=== PATIENT | male | born 1960 | race Caucasian/White ===

== ENCOUNTER → 2018-02-28 17:19 | Outpatient (CLI) | payer OTHER, SELFPAY ==
[2018-02-28 17:37] LABS: Absolute Lymphocyte Count 1.81 X10^3/ul (0.83-4.51); Absolute Neutrophil Count 3.6 X10^3/uL (2.0-7.7); Basophil# 0.02 X10^3/uL; Basophil% 0.3 % (0-1); Eosinophil# 0.23 X10^3/uL; Eosinophils% 3.6 % (0-5); Hematocrit 45.9 % (40-54); Hemoglobin 16.4 g/dl (13.0-16.5); Lymphocyte # 1.81 X10^3/ul (4.0); Lymphocyte % 28.3 % (19-41); Mean Corp Hgb Conc 35.7 g/gl (32-36); Mean Corpuscular Hgb 31.8 pg (27.0-32.0); Mean Corpuscular Volume 89.1 fL (80-94); Mean Platelet Vol. 8.9 fl (6.2-12.0); Monocyte# 0.73 X10^3/uL; Monocyte% 11.4 % (0-10); Neutrophil # 3.59 X10^3/uL (2.7-7.7); Neutrophil % 56.2 % (47-70); Platelet Count 231 K/mm3 (150-450); RBC Distribution Width CV 13.1 % (11.6-14.6); RBC Distribution Width SD 42.4 fl (35.1-43.9); Red Blood Count 5.15 M/mm3 (4.6-6.2); White Blood Count 6.4 K/mm3 (4.4-11.0)
[2018-02-28 17:40] LABS: POSITIVE COUNT NO; POSITIVE DIFFERENTIAL NO; POSITIVE MORPHOLOGY NO
[2018-02-28 18:19] LABS: ALB/GLOB Ratio 0.9 RATIO (0.9-2.4); AST(SGOT) 18 U/L (15-37); Alanine Aminotransfer ALT/SGPT 29 U/L (16-61); Albumin, Serum 3.7 g/dL (3.2-5.0); Alkaline Phosphatase 68 U/L (45-117); Anion Gap 8 (5-15); BUN 19 mg/dL (7-18); BUN/Creat Ratio 21.6 RATIO (10-20); Calcium,Total 8.8 mg/dL (8.5-10.1); Chloride 106 mmol/L (98-107); Creatinine, Serum 0.88 mg/dL (0.70-1.30); EST Glomerular Filtration Rate 95 mL/min (>60); Est Glom Filt Rate - Afr Amer 115 mL/min (>60); Globulin 3.9 g/dL (2.2-4.2); Glucose 86 mg/dL (74-106); Potassium 4.5 mmol/L (3.5-5.1); Protein, Total 7.6 g/dL (6.4-8.2); Sodium Level 139 mmol/L (136-145); Thyroid Stim Hormone (TSH) 2.12 uIU/mL (0.358-3.74)
== END ==
PROVIDERS: Family Provider Family Medicine Geriatric Medicine; PCP Family Medicine Geriatric Medicine; Visit Provider Family Medicine Geriatric Medicine
DX: I10 Essential (primary) hypertension (principal)
CPT/HCPCS: 36415; 80053; 84443; 85025

== ENCOUNTER → 2018-09-01 12:01 | Outpatient (CLI) | payer OTHER, SELFPAY ==
[2017-08-03 16:46] VITALS: BMI 46.5
[2018-09-01 16:32] LABS: M R Staph aureus DNA By PCR Negative (Negative); Probe Check PASS; Specimen Processing Control PASS; Staph aureus DNA By PCR NEGATIVE (Negative)
== END ==
PROVIDERS: Family Provider Family Medicine Geriatric Medicine; PCP Family Medicine Geriatric Medicine; Visit Provider Family Medicine Geriatric Medicine
DX: L03.90 Cellulitis, unspecified (principal)
CPT/HCPCS: 87070; 87075; 87205; 87640

== ENCOUNTER → 2018-09-20 16:23 | Outpatient (CLI) | payer OTHER, SELFPAY ==
[2017-08-03 16:46] VITALS: BMI 46.5
[2018-09-20 17:52] LABS: Absolute Neutrophil Count 3.6 X10^3/uL (2.0-7.7); Basophil# 0.01 X10^3/uL; Basophil% 0.2 % (0-1); Eosinophil# 0.17 X10^3/uL; Eosinophils% 2.6 % (0-5); Hematocrit 47.2 % (40-54); Hemoglobin 16.2 g/dl (13.0-16.5); Lymphocyte % 32.5 % (19-41); Mean Corp Hgb Conc 34.3 g/gl (32-36); Mean Corpuscular Hgb 31.4 pg (27.0-32.0); Mean Corpuscular Volume 91.5 fL (80-94); Mean Platelet Vol. 9.1 fl (6.2-12.0); Monocyte# 0.59 X10^3/uL; Monocyte% 9.1 % (0-10); Neutrophil # 3.58 X10^3/uL (2.7-7.7); Neutrophil % 55.3 % (47-70); Platelet Count 240 K/mm3 (150-450); RBC Distribution Width CV 12.9 % (11.6-14.6); RBC Distribution Width SD 42.9 fl (35.1-43.9); Red Blood Count 5.16 M/mm3 (4.6-6.2); White Blood Count 6.5 K/mm3 (4.4-11.0)
[2018-09-20 18:14] LABS: AST(SGOT) 25 U/L (15-37); Alanine Aminotransfer ALT/SGPT 33 U/L (16-61); Albumin, Serum 3.8 g/dL (3.2-5.0); Alkaline Phosphatase 67 U/L (45-117); Anion Gap 12 (5-15); BUN 20 mg/dL (7-18); BUN/Creat Ratio 21.3 RATIO (10-20); Calcium,Total 8.9 mg/dL (8.5-10.1); Chloride 108 mmol/L (98-107); Creatinine, Serum 0.94 mg/dL (0.70-1.30); EST Glomerular Filtration Rate 88 mL/min (>60); Est Glom Filt Rate - Afr Amer 106 mL/min (>60); Globulin 3.9 g/dL (2.2-4.2); Glucose 93 mg/dL (74-106); PSA,Total - Annual Screen 0.95 ng/mL (0.00-4.00); Potassium 4.2 mmol/L (3.5-5.1); Protein, Total 7.7 g/dL (6.4-8.2); Sodium Level 139 mmol/L (136-145); Thyroid Stim Hormone (TSH) 1.69 uIU/mL (0.358-3.74)
[2018-09-20 18:33] LABS: POSITIVE COUNT NO; POSITIVE DIFFERENTIAL NO; POSITIVE MORPHOLOGY NO
== END ==
PROVIDERS: Family Provider Family Medicine Geriatric Medicine; PCP Family Medicine Geriatric Medicine; Visit Provider Family Medicine Geriatric Medicine
DX: I10 Essential (primary) hypertension (principal); Z12.5 Encounter for screening for malignant neoplasm of prostate
CPT/HCPCS: 36415; 80053; 84153; 84443; 85025; G0103

== ENCOUNTER → 2018-11-07 10:14 | Outpatient (CLI) | payer OTHER, SELFPAY ==
--- NOTE | 2018-11-07 10:24 | VDLE_ITS ---
Reason For Study: edema RIGHT LEFT GSV is normal. GSV is normal. CFV is compressible, spontaneous, phasic, CFV is compressible, spontaneous, phasic, competent and demonstrates normal competent, and demonstrates normal augmentation. augmentation. FV is compressible, spontaneous, phasic, FV is compressible, spontaneous, phasic, competent and demonstrates normal competent and demonstrates normal augmentation. augmentation. POP V is compressible, spontaneous, phasic, POP V is compressible, spontaneous, phasic, competent and demonstrates normal competent and demonstrates normal augmentation. augmentation. T/P Trunk is compressible. T/P Trunk is compressible. PTV is compressible. PTV is compressible. RT PerV is compressible. LT PerV is compressible. Procedure Exam performed in department. The exam was diagnostic. A preliminary report was called and/or faxed to Dr. Blake. Interpretation Summary Deep veins of the lower extremities are bilaterally patent and compressible segmentally. There is no evidence of deep vein thrombosis on either side. Valvular competence appears intact within the proximal deep venous systems bilaterally. The greater saphenous veins appear bilaterally patent and compressible segmentally. Ordering Physician: Alfonso Blake Performed By: Aaron Youssef RVT
--- NOTE | 2018-11-07 10:53 | RAD_ITS ---
STUDY: X-RAY - LEFT HIP AP pelvis REASON FOR EXAM: Male, 58 years old. Pain, no known injury TECHNIQUE: 2 views of the hip. Single AP view of the pelvis COMPARISON: None. FINDINGS: The bony pelvis is intact with no evidence of fracture or lytic or blastic osseous process. There is no evidence of fracture, dislocation, or significant degenerative disease of the left or right hips. Soft tissues are unremarkable. RAD/HIP, UNI W/ Pelvis 2-3 Views IMPRESSION: The bony pelvis and left and right hips appear within normal limits. Electronically Signed: Kalin Silver MD at 20:48 EST , Service support ,
== END ==
PROVIDERS: Family Provider Family Medicine Geriatric Medicine; PCP Family Medicine Geriatric Medicine; Referring Provider Family Medicine Geriatric Medicine; Visit Provider Family Medicine Geriatric Medicine
DX: R60.0 Localized edema (principal); M25.559 Pain in unspecified hip
CPT/HCPCS: 73502; 93970

== ENCOUNTER → 2019-03-29 | Outpatient (CLI) | payer OTHER, SELFPAY ==
[2019-03-29 17:15] LABS: Absolute Neutrophil Count 3.5 X10^3/uL (2.0-7.7); Basophil# 0.02 X10^3/uL; Basophil% 0.3 % (0-1); Eosinophil# 0.23 X10^3/uL; Eosinophils% 3.8 % (0-5); Hematocrit 46.9 % (40-54); Hemoglobin 16.1 g/dL (13.0-16.5); Lymphocyte % 28.1 % (19-41); Mean Corp Hgb Conc 34.3 g/dL (32-36); Mean Corpuscular Hgb 31.4 pg (27.0-32.0); Mean Corpuscular Volume 91.4 fL (80-94); Mean Platelet Vol. 8.8 fl (6.2-12.0); Monocyte# 0.59 X10^3/uL; Monocyte% 9.7 % (0-10); NRBC Flagged by Analyzer 0 % (0-5); Neutrophil % 57.8 % (47-70); Platelet Count 246 K/mm3 (150-450); RBC Distribution Width CV 12.6 % (11.6-14.6); RBC Distribution Width SD 42.2 fl (35.1-43.9); Red Blood Count 5.13 M/mm3 (4.6-6.2); White Blood Count 6.1 K/mm3 (4.4-11.0)
[2019-03-29 17:47] LABS: AST(SGOT) 15 U/L (15-37); Alanine Aminotransfer ALT/SGPT 32 U/L (16-61); Albumin, Serum 3.7 g/dL (3.2-5.0); Alkaline Phosphatase 68 U/L (45-117); Anion Gap 8 (5-15); BUN 21 mg/dL (7-18); BUN/Creat Ratio 18.4 RATIO (10-20); Calcium,Total 8.9 mg/dL (8.5-10.1); Chloride 109 mmol/L (98-107); Creatinine, Serum 1.14 mg/dL (0.70-1.30); EST Glomerular Filtration Rate 70 mL/min (>60); Est Glom Filt Rate - Afr Amer 85 mL/min (>60); Globulin 3.7 g/dL (2.2-4.2); Glucose 93 mg/dL (74-106); Potassium 4.1 mmol/L (3.5-5.1); Protein, Total 7.4 g/dL (6.4-8.2); Sodium Level 141 mmol/L (136-145); Thyroid Stim Hormone (TSH) 1.42 uIU/mL (0.358-3.74)
== END | disposition home or self-care (01) ==
LOC: POLAB3 16:05
PROVIDERS: Family Provider Family Medicine Geriatric Medicine; PCP Family Medicine Geriatric Medicine; Visit Provider Family Medicine Geriatric Medicine
DX: I10 Essential (primary) hypertension (principal)
CPT/HCPCS: 36415; 80053; 84443; 85025

== ENCOUNTER → 2019-09-25 15:47 | Outpatient (CLI) | payer OTHER, SELFPAY ==
[2019-09-25 17:53] LABS: Absolute Lymphocyte Count 1.34 X10^3/uL (0.83-4.51); Absolute Neutrophil Count 3.5 X10^3/uL (2.0-7.7); Basophil# 0.02 X10^3/uL; Basophil% 0.3 % (0-1); Eosinophil# 0.34 X10^3/uL; Eosinophils% 5.9 % (0-5); Hematocrit 48.1 % (40-54); Hemoglobin 16.3 g/dL (13.0-16.5); Lymphocyte # 1.34 X10^3/ul (4.0); Lymphocyte % 23.3 % (19-41); Mean Corp Hgb Conc 33.9 g/dL (32-36); Mean Corpuscular Hgb 30.4 pg (27.0-32.0); Mean Corpuscular Volume 89.7 fL (80-94); Monocyte# 0.57 X10^3/uL; Monocyte% 9.9 % (0-10); NRBC Flagged by Analyzer 0 % (0-5); Neutrophil # 3.48 X10^3/uL (2.7-7.7); Neutrophil % 60.4 % (47-70); Platelet Count 251 K/mm3 (150-450); RBC Distribution Width CV 12.9 % (11.6-14.6); RBC Distribution Width SD 41.8 fl (35.1-43.9); Red Blood Count 5.36 M/mm3 (4.6-6.2); White Blood Count 5.8 K/mm3 (4.4-11.0)
[2019-09-25 18:53] LABS: AST(SGOT) 17 U/L (15-37); Alanine Aminotransfer ALT/SGPT 35 U/L (16-61); Albumin, Serum 3.8 g/dL (3.2-5.0); Alkaline Phosphatase 63 U/L (45-117); Anion Gap 6 (5-15); BUN 19 mg/dL (7-18); BUN/Creat Ratio 19.3 RATIO (10-20); Calcium,Total 9.6 mg/dL (8.5-10.1); Chloride 108 mmol/L (98-107); Creatinine, Serum 0.99 mg/dL (0.70-1.30); EST Glomerular Filtration Rate 83 mL/min (>60); Est Glom Filt Rate - Afr Amer 100 mL/min (>60); Globulin 3.7 g/dL (2.2-4.2); Glucose 96 mg/dL (74-106); Potassium 4.2 mmol/L (3.5-5.1); Protein, Total 7.5 g/dL (6.4-8.2); Sodium Level 138 mmol/L (136-145)
== END ==
PROVIDERS: Family Provider Family Medicine; PCP Family Medicine; Visit Provider Family Medicine
DX: D68.61 Antiphospholipid syndrome (principal); Z79.01 Long term (current) use of anticoagulants; G47.33 Obstructive sleep apnea (adult) (pediatric)
CPT/HCPCS: 36415; 80053; 85025

== ENCOUNTER → 2019-09-28 14:13 | Outpatient (CLI) | payer OTHER, SELFPAY ==
--- NOTE | 2019-09-28 14:19 | US_ITS ---
STUDY: SCROTUM ULTRASOUND REASON FOR EXAM: Male, 59 years old. HYDROCELE TECHNIQUE: Ultrasound evaluation of the scrotum was performed with color Doppler and static rodas-scale imaging. COMPARISON: None. FINDINGS: RIGHT TESTICLE INTRATESTICULAR: There is a normal size of the right testicle. The right testicle measures 3.6 x 2.8 x 1.7 cm. There is a homogenous echotexture. There is normal arterial and normal venous vascularity. There is no demonstrated right testicular mass or cyst. EXTRATESTICULAR: The epididymis is normal in size. The epididymis head measures 0.9 x 1.1 x 0.6 cm. There is normal vascularity of the epididymis. There is no demonstrated epididymal cystic structure. There is no demonstrated hydrocele. There is no demonstrated varicocele. There is no demonstrated extratesticular mass or cyst. LEFT TESTICLE INTRATESTICULAR: There is a normal size of the left testicle. The left testicle measures 3.6 x 2.6 x 1.8 cm. There is a homogenous echotexture. There is normal arterial and normal venous vascularity. There is no demonstrated left testicular mass or cyst. EXTRATESTICULAR: The epididymis is enlarged. In the body and tail segment The epididymis head measures 1.0 x 1.4 x 0.9 cm. There is normal vascularity of the epididymis. There is no demonstrated epididymal cystic structure. There is a small hydrocele. There is no demonstrated varicocele. There is no demonstrated extratesticular mass or cyst. US/Testicular with Arterial Flow IMPRESSION: 1. Normal bilateral testicles. 2. Trace left hydrocele. 3. Mildly thickened left epididymal body and tail but without hyperemia. May be sequela of chronic epididymitis. Electronically Signed: Ld Tapia MD (Brooks) at 14:17 EST , Service support ,
== END ==
PROVIDERS: Family Provider Family Medicine; PCP Family Medicine; Referring Provider Family Medicine; Visit Provider Family Medicine
DX: N43.3 Hydrocele, unspecified (principal)
CPT/HCPCS: 76870; 93976

== ENCOUNTER 2021-04-21 12:29 | Emergency (ER) | payer OTHER, SELFPAY ==
[2021-04-21 12:30] VITALS: BP 138/82; PULSE 88; RESP 16; TEMP 36.7; O2SAT 98; BMI 50.5
--- NOTE | 2021-04-21 12:50 | VDLE_ITS ---
Reason For Study: swelling Procedure LEFT This is a venous duplex using B-mode, color GSV is normal. flow and spectral Doppler. CFV is compressible, spontaneous, phasic, Exam performed portable in ED. competent, and demonstrates normal The exam was abbreviated due to the COVID 19 augmentation. protocol. FV is compressible, spontaneous, phasic, The exam was diagnostic. competent and demonstrates normal A preliminary report was called and/or faxed augmentation. to Dr. Mackay. POP V is compressible, spontaneous, phasic, competent and demonstrates normal augmentation. T/P Trunk is compressible. PTV is compressible. LT PerV is compressible. VL/Venous Duplex US, Unilateral Interpretation Summary There is no evidence of left lower extremity deep vein thrombosis. Left great s aphenous vein appears patent and compressible segmentally. Abbreviated COVID-19 protocol utilized Ordering Physician: Humble Mackay Performed By: Aaron Youssef RVT
--- NOTE | 2021-04-21 12:52 | EDS_ITS ---
HPI History of Present Illness Chief Complaint: Fever Narrative Narrative: 60-year-old male presenting with a fever of 102 last evening. His states that he came home early and slept most of the afternoon and evening. He woke up that 3 AM and felt febrile however his temperature was 99.8. Patient took Tylenol at that time. He has no return of fever. Patient denies cough or shortness of breath but does admit to feeling chills and body aches. No loss of taste or smell. No sick contacts. 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 Patient does admit to some redness on the left lower calf. 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 Patient states he has a history of DVT and is not currently anticoagulated. Patient has not been vaccinated and states I do not see the point. He states that they that he never had to be vaccinated in the past. He has not had a history of COVID-19. PFSH PFSH Home Medications magnesium oxide 400 mg PO DAILY 12/22/16 [History Last Taken Unknown] omega 8-[id number]-[id number]-fish oil [Fish Oil] 1,200 mg PO DAILY 12/22/16 [History Last Taken Unknown] apixaban [Eliquis] 5 mg PO BID 08/03/17 [History Last Taken Unknown] cephalexin 500 mg PO Q6 #40 capsule 04/21/21 [Rx Last Taken Unknown] Allergy/AdvReac Type Severity Reaction Status Date / Time No Known Allergies Allergy Verified 08/03/17 16:50 Social History Smoking Status: Never smoker ROS ROS ED Constitutional Constitutional ED: Reports chills and fever(s); Denies sweats Eyes Eyes: Denies blurry vision or diplopia ENT ENT ED: Denies rhinorrhea or sore throat Cardiovascular Cardiovascular: Denies chest pain, palpitations or racing heartbeat Respiratory/Chest Respiratory/Chest: Denies cough, dyspnea or sputum Gastrointestinal Gastrointestinal: Denies abdominal pain, nausea or vomiting Genitourinary Genitourinary ED: Denies dysuria or hematuria Musculoskeletal Musculoskeletal: Reports myalgias; Denies arthralgias, back pain or neck pain Integumentary Reports rash and other Details: Redness and swelling of left calf. Neurologic Neurologic: Denies headache(s) or paresthesias Psychiatric Psychiatric: Denies anxiety or depression EXAM Physical Exam Const Vital Signs: 04/21/21 12:30 04/21/21 13:11 04/21/21 14:13 Temperature 98.0 F Temperature Source Temporal Pulse Rate 88 77 Respiratory Rate 16 18 Respiratory Pattern Normal Blood Pressure 138/82 H 157/73 H Blood Pressure Mean 100 101 Pulse Ox 98 96 Oxygen Delivery Method Room Air Room Air 04/21/21 14:41 Temperature Temperature Source Pulse Rate 72 Respiratory Rate 16 Respiratory Pattern Blood Pressure 155/86 H Blood Pressure Mean Pulse Ox 98 Oxygen Delivery Method Positive well nourished and well developed General Appearance ED: well developed; Negative for pallor HEENT trauma and tenderness Eyes PERRL and EOMs intact bilaterally Neck no lymphadenopathy and supple Resp normal respiratory effort Cardio regular rate and regular rhythm GI normal to inspection, nondistended, normoactive bowel sounds Extremity Extremity Narrative: Erythema and swelling to the left calf and left tibial region. No crepitance palpated. No cords palpated. General Extremety ED: Yes tenderness; Negative for edema General Extremity: Negative for edema Psych mental status grossly normal Mood & Affect: Negative for depressed Skin General Skin Exam: Negative for jaundice or pallor MDM MDM MDM Narrative Medical decision making narrative: Patient presenting with reported fever at home of 102 last night. He does not have any respiratory symptoms. He does complain that his left leg is erythematous and he has some pain in the left calf. Patient has a history of DVT and is no longer anticoagulated. I did check lab work which shows he has a blood cell count of 9.1, hemoglobin 15.4, hematocrit 46.9, platelets 175. Renal function and electrolytes are normal. LFTs are within normal limits with exception of total bilirubin which is elevated at 1.9. This was previously elevated at 1.10. Patient not having any right upper quadrant abdominal pain. Chest x-ray on my interpretation shows no acute cardiopulmonary process. Rapid Covid was negative. Patient's urinalysis is somewhat contaminated and I will send this for culture. DVT study of the left lower extremity shows no DVT. Given the erythema over the left calf I will treat him for cellulitis. This will also cover for UTI should his urine culture come back. Patient counseled on return precautions. Discharged home in stable condition. Impression: 1. Febrile illness 2. Cellulitis left lower extremity Lab Data Labs: Laboratory Results - last 24 hr 04/21/21 04/21/21 04/21/21 13:05 13:05 13:05 WBC 9.1 RBC 4.94 Hgb 15.4 Hct 46.9 MCV 94.9 H MCH 31.2 MCHC 32.8 RDW Std Deviation 46.8 H RDW Coeff of Reshma 13.4 Plt Count 175 MPV 8.7 Immature Gran % (Auto) 0.300 Neut % (Auto) 80.8 H Lymph % (Auto) 10.9 L [place] % (Auto) 7.0 Eos % (Auto) 0.8 Baso % (Auto) 0.2 Absolute Neuts (auto) 7.3 Absolute Lymphs (auto) 0.99 Nucleated RBC % 0 Sodium 138 Potassium 3.9 Chloride 103 Carbon Dioxide 29.0 Anion Gap 6 BUN 16 Creatinine 1.05 Estim Creat Clear Calc 77.25 Est GFR (MDRD) Af Amer 93 Est GFR (MDRD) Non-Af 76 BUN/Creatinine Ratio 15.2 Glucose 157 H Calcium 8.4 L Total Bilirubin 1.90 H AST 19 ALT 42 Alkaline Phosphatase 61 Total Protein 7.3 Albumin 3.2 Globulin 4.1 Albumin/Globulin Ratio 0.8 L Procalcitonin 1.41 H Urine Color Urine Clarity Urine pH Ur Specific [place] Urine Protein Urine Glucose (UA) Urine Ketones Urine Occult Blood Urine Nitrite Urine Bilirubin Urine Urobilinogen Ur Leukocyte Esterase Urine RBC Urine WBC Ur Squamous Epith Cells Urine Bacteria Urine Mucus 04/21/21 13:20 WBC RBC Hgb Hct MCV MCH MCHC RDW Std Deviation RDW Coeff of Reshma Plt Count MPV Immature Gran % (Auto) Neut % (Auto) Lymph % (Auto) [place] % (Auto) Eos % (Auto) Baso % (Auto) Absolute Neuts (auto) Absolute Lymphs (auto) Nucleated RBC % Sodium Potassium Chloride Carbon Dioxide Anion Gap BUN Creatinine Estim Creat Clear Calc Est GFR (MDRD) Af Amer Est GFR (MDRD) Non-Af BUN/Creatinine Ratio Glucose Calcium Total Bilirubin AST ALT Alkaline Phosphatase Total Protein Albumin Globulin Albumin/Globulin Ratio Procalcitonin Urine Color Yellow Urine Clarity Sl. Cloudy Urine pH 7.0 Ur Specific [place] 1.005 Urine Protein Negative Urine Glucose (UA) Normal Urine Ketones Negative Urine Occult Blood 250 H Urine Nitrite Negative Urine Bilirubin Negative Urine Urobilinogen 4 H Ur Leukocyte Esterase 25 H Urine RBC 10-25 SEEN Urine WBC 0-5 SEEN Ur Squamous Epith Cells 0-5 SEEN Urine Bacteria RARE Urine Mucus RARE Radiography Diagnostic Testing: Radiology Impression Venous Doppler Study 04/21/21 12:50 Interpretation Summary There is no evidence of left lower extremity deep vein thrombosis. Left great saphenous vein appears patent and compressible segmentally. Abbreviated COVID-19 protocol utilized Ordering Physician: Humble Mackay Performed By: Aaron Youssef, T Chest X-Ray 04/21/21 12:54 IMPRESSION: No suspicious acute cardiopulmonary pathology given the limited inspiratory effort. HRCT chest will help clarify if early interstitial pneumonitis is a clinical consideration. Electronically Signed: Merlin Hitchcock MD at 13:15 EDT , Service support , Discharge Plan Triage Chief Complaint: Fever ED Provider: Humble Mackay Dx/Rx/DC Orders Instructions: ED Cellulitis Prescriptions: New cephalexin 500 mg capsule 500 mg PO Q6 Qty: 40 RF: 0 No Action omega 0-usg-uss-fish oil [Fish Oil] 500 MG capsule,delayed release(DR/EC) 1,200 mg PO DAILY RF: 0 magnesium oxide 400 MG tablet 400 mg PO DAILY RF: 0 apixaban [Eliquis] 5 MG tablet 5 mg PO BID RF: 0 Primary Care Provider: Tri Choudhury Referrals: Tri Chouduhry MD [Primary Care Provider] - Disposition Disposition: Home, Self Care Discharge Date/Time: 04/21/21 14:41
--- NOTE | 2021-04-21 12:54 | RAD_ITS ---
EXAM: XR CHEST, 1 VIEW CLINICAL INDICATION: Cough. TECHNIQUE: Frontal view of the chest. This report was created using [employer] report generation technology. COMPARISON: 08/03/2017. FINDINGS: LUNGS AND PLEURAL SPACES: Pulmonary hypoinflation. No obvious infiltrates. No pneumothorax. No effusion. HEART: Unremarkable. Cardiac silhouette not enlarged. MEDIASTINUM: Central airways and mediastinal contour are unremarkable. BONES/JOINTS: Unremarkable. SOFT TISSUES: Unremarkable. RAD/Chest 1 View (Portable) IMPRESSION: No suspicious acute cardiopulmonary pathology given the limited inspiratory effort. HRCT chest will help clarify if early interstitial pneumonitis is a clinical consideration. Electronically Signed: Merlin Hitchcock MD at 13:15 EDT , Service support ,
[2021-04-21 13:16] LABS: Absolute Lymphocyte Count 0.99 X10^3/uL (0.83-4.51); Absolute Neutrophil Count 7.3 X10^3/uL (2.0-7.7); Basophil# 0.02 X10^3/uL; Basophil% 0.2 % (0-1); Eosinophil# 0.07 X10^3/uL; Eosinophils% 0.8 % (0-5); Hematocrit 46.9 % (40-54); Hemoglobin 15.4 g/dL (13.0-16.5); Lymphocyte # 0.99 X10^3/ul (0.83-4.51); Lymphocyte % 10.9 % (19-41); Mean Corp Hgb Conc 32.8 g/dL (32-36); Mean Corpuscular Hgb 31.2 pg (27.0-32.0); Mean Corpuscular Volume 94.9 fL (80-94); Mean Platelet Vol. 8.7 fl (6.2-12.0); Monocyte# 0.63 X10^3/uL; NRBC Flagged by Analyzer 0 % (0-5); Neutrophil # 7.32 X10^3/uL (2.7-7.7); Neutrophil % 80.8 % (47-70); Platelet Count 175 K/mm3 (150-450); RBC Distribution Width CV 13.4 % (11.6-14.6); RBC Distribution Width SD 46.8 fl (35.1-43.9); Red Blood Count 4.94 M/mm3 (4.6-6.2); White Blood Count 9.1 K/mm3 (4.4-11.0)
[2021-04-21 13:30] LABS: ALB/GLOB Ratio 0.8 RATIO (0.9-2.4); AST(SGOT) 19 U/L (15-37); Alanine Aminotransfer ALT/SGPT 42 U/L (16-61); Albumin, Serum 3.2 g/dL (3.2-5.0); Alkaline Phosphatase 61 U/L (45-117); Anion Gap 6 (5-15); BUN 16 mg/dL (7-18); BUN/Creat Ratio 15.2 RATIO (10-20); Calcium,Total 8.4 mg/dL (8.5-10.1); Chloride 103 mmol/L (98-107); Creatinine, Serum 1.05 mg/dL (0.70-1.30); EST Glomerular Filtration Rate 76 mL/min (>60); Est Glom Filt Rate - Afr Amer 93 mL/min (>60); Estimated Creatinine Clearance 77.25 ml/min; Globulin 4.1 g/dL (2.2-4.2); Glucose 157 mg/dL (74-106); Potassium 3.9 mmol/L (3.5-5.1); Protein, Total 7.3 g/dL (6.4-8.2); Sodium Level 138 mmol/L (136-145)
[2021-04-21 13:39] LABS: Color, Urine Yellow (Yellow); Glucose, Dipstick Normal (Normal); Ketone-Dipstick Negative (Negative); Leukocyte Esterase-Dipstick 25 /ul (Negative); Nitrite-Dipstick Negative (Negative); Occult Blood-Urine 250 /ul (Negative); Protein-Dipstick Negative (Negative); Specific Gravity, Urine 1.005 (1.002-1.030); Urine Bilirubin Dipstick Negative (Negative); Urine Clarity Sl. Cloudy (Clear); Urine Urobilinogen 4 mg/dl (Normal)
[2021-04-21 13:45] LABS: White Blood Cells 0-5 SEEN /hpf (0-5)
[2021-04-21 13:46] LABS: Bacteria RARE /hpf (None Seen); Mucous, Urine RARE /hpf (<or=2+); Red Blood Cells-Urine 10-25 SEEN /hpf (0-5); Squamous Epithelial Cells - UA 0-5 SEEN /hpf (0-5)
[2021-04-21 14:13] VITALS: BP 157/73; PULSE 77; RESP 18; O2SAT 96
[2021-04-21] MEDS: Cephalexin 250 MG Capsule 500 MG PO (14:36)
[2021-04-21 14:41] VITALS: BP 155/86; PULSE 72; RESP 16; O2SAT 98
[2021-04-21 15:25] LABS: Procalcitonin 1.41 ng/mL (0.00-0.09)
== END 2021-04-21 14:41 | disposition home or self-care (01) ==
PROVIDERS: Emergency Provider Student in an Organized Health Care Education/Training Program; PCP Family Medicine
DX: L03.116 Cellulitis of left lower limb (principal); R50.9 Fever, unspecified; Z86.718 Personal history of other venous thrombosis and embolism; Z79.01 Long term (current) use of anticoagulants
CPT/HCPCS: 71045; 80053; 81001; 84145; 85025; 87426; 93971; 99285

== ENCOUNTER → 2021-04-30 | Outpatient (CLI) | payer OTHER, SELFPAY ==
--- NOTE | 2021-04-30 15:30 | LES_PTH ---
PATIENT: WOOD CERDA LOC: [facility]#:[id number] AGE/SX: 60/M ROOM: RE04/30/[address]: Dr. Tri Choudhury MD : 1960 BED: DIS: 04/30/2021 SPEC #: [id number] RECD: 04/30/21 17:19 STATUS: ELI THERESA #: [id number] TREVOR: 04/30/21 15:[address]: Tri Choudhury DEPT: SURGICAL PATHOLOGY RECD BY: Zayra Olivares Tissues: Skin of face, NOS Procedures: Surgery Specimen Level IV HEADER OPERATION: Shave biopsy PRE-OP DIAGNOSIS: Growing lesion, suspect wart TISSUE SUBMITTED: Right cheek shave biopsy MICROSCOPIC DIAGNOSIS Right cheek, shave biopsy: Sebaceous hyperplasia. Suggestive of benign verrucous keratosis. Negative for malignancy. WAYNE:mnan 05/04/2021 MICROSCOPIC DESCRIPTION Slides are reviewed. GROSS DESCRIPTION Received is one container labeled with the patient's name and not further designated. The specimen consists of a shave biopsy of rodriguez-white skin measuring 0.4 x 0.4 x 0.1 cm. The specimen is inked and submitted entirely in one cassette. It will be bisected at the time of embedding. / SJ:rg 05/01/21 TC:5 CPT: 49260
== END | disposition home or self-care (01) ==
PROVIDERS: PCP Family Medicine; Visit Provider Family Medicine
DX: L98.9 Disorder of the skin and subcutaneous tissue, unspecified (principal)
CPT/HCPCS: 88305

== ENCOUNTER → 2022-02-16 | Outpatient (CLI) | payer OTHER, SELFPAY ==
[2022-02-16 10:56] LABS: Anion Gap 4 (5-15); Chloride 107 mmol/L (98-107); Potassium 4.3 mmol/L (3.5-5.1); Sodium Level 140 mmol/L (136-145)
== END | disposition home or self-care (01) ==
PROVIDERS: PCP Family Medicine; Referring Provider Internal Medicine Pulmonary Disease; Visit Provider Internal Medicine Pulmonary Disease
DX: G47.33 Obstructive sleep apnea (adult) (pediatric) (principal)
CPT/HCPCS: 36415; 80051

== ENCOUNTER 2022-02-17 07:31 | Inpatient (IN) | payer OTHER, SELFPAY ==
[2022-02-17 07:32] VITALS: BP 209/84; PULSE 56; RESP 18; TEMP 36.7; O2SAT 98; BMI 47.3
--- NOTE | 2022-02-17 07:54 | CT_ITS ---
STUDY: CT ABDOMEN AND PELVIS WITH CONTRAST REASON FOR EXAM: Male, 61 years old. RUQ pain since last night. RADIATION DOSAGE (If Supplied By Facility): CTDIvol = ( 20.55 ) mGy, DLP = ( 2457.55 ) mGycm TECHNIQUE: Transaxial images were obtained from the dome of the diaphragm to the symphysis pubis without oral contrast. IV 75mL [id number]-300 was administered. Sagittal and coronal images were reconstructed. Individualized dose optimization techniques were used for this CT. COMPARISON: None. FINDINGS: There is a 2.1 cm x 0.8 cm fat-containing nodule in the peripheral lateral aspect of the right lower lobe as seen on axial image #2. The visualized portions of the heart are within normal limits. There is decreased attenuation of the liver consistent with steatosis. There are multiple gallstones. Normal spleen. Normal pancreas. There is a small, circumscribed, smooth, low attenuation left adrenal mass, consistent with an adrenal adenoma. This measures 1.9 cm. Normal right adrenal gland. There is a 1.9 cm hypodense nodule in the inferior lateral aspect of the right kidney most likely representing a small cyst although correlation with ultrasound is recommended. Horseshoe kidney. There is a small hiatal hernia. Normal small intestine. There are multiple colonic diverticula consistent with diverticulosis. The appendix is visualized and appears normal. Normal abdominal aorta. Normal inferior vena cava. Normal retroperitoneum. Normal urinary bladder. There are prostatic calcifications. Normal abdominal wall. There are diffuse degenerative changes of the visualized lumbar spine. CT/Abdomen/Pelvis W IV Cont ONLY IMPRESSION: Multiple gallstones. Findings suggestive of a small cyst in the inferior lateral aspect of the right kidney although correlation with ultrasound is recommended. Horseshoe kidney. 2.1 cm x 0.8 cm fat-containing nodule in the peripheral lateral aspect of the right lower lobe. Electronically Signed: Sonny Padron MD at 9:17 EDT ,
--- NOTE | 2022-02-17 07:55 | ED.VIS.GI ---
HPI HPI - GI History of Present Illness Chief Complaint: Abd Pain Informant: patient Narrative Narrative: Patient is a 61-year-old male with history of of abdominal surgeries presenting with right upper quadrant abdominal pain. Patient states that started last night after dinner. States is in his right upper quadrant but sometimes goes across to the middle of his abdomen. Denies associated nausea, vomiting or diarrhea. States he tried taking Tylenol and walking around with no relief. He could not sleep last night because of the pain. Notes he has had pain like this in the past but usually resolves and that was a while ago. He feel slightly short of breath secondary to the pain. Pain is worse if he takes a deep breath. Patient notes that he had pork chops, macaroni salad and broccoli for dinner last night. Has a history of exploratory laparotomy due to a liver laceration as well as surgery in his left lower quadrant secondary to a form accident where he was impaled. No other complaints at this time. No fever or chills. No swelling of his legs or chest pain. No history of DVT or PE. Last bowel movement was yesterday and normal per patient PFSH PFS Medical History (Updated 02/17/22 @ 13:[address] Lizbeth Khalil, DO) Acute cholecystitis Morbid obesity ABDULKADIR (obstructive sleep apnea) Home Medications NK 02/17/22 [History Last Taken Unknown] Allergy/AdvReac Type Severity Reaction Status Date / Time No Known Allergies Allergy Verified 02/17/22 07:47 Social History Smoking Status: Never smoker ROS ROS ED Constitutional Constitutional ED: Denies chills or fever(s) ENT ENT ED: Denies sore throat Cardiovascular Cardiovascular: Denies chest pain or palpitations Respiratory/Chest Respiratory/Chest: Reports dyspnea; Denies cough Gastrointestinal Gastrointestinal: Reports abdominal pain; Denies constipation, diarrhea, melena, nausea or vomiting Genitourinary Genitourinary ED: Denies dysuria, hematuria or urinary frequency Musculoskeletal Musculoskeletal: Denies arthralgias or myalgias Integumentary Denies rash Neurologic Neurologic: Denies headache(s) or weakness Psychiatric Psychiatric: Denies depression EXAM Physical Exam Const Vital Signs: 02/17/22 07:32 02/17/22 10:08 02/17/22 13:14 Temperature 98.0 F 97.9 F Temperature Source Temporal Temporal Pulse Rate 56 L 87 60 Respiratory Rate 18 16 15 Blood Pressure 209/84 H 142/88 H 168/86 H Blood Pressure Mean 125 106 113 Pulse Ox 98 96 95 Oxygen Delivery Method Room Air Room Air Room Air Positive well nourished, well developed and obese General Appearance ED: well developed Nutritional Appearance: obese HEENT Reports moist mucous membranes normocephalic and atraumatic Eyes PERRL and EOMs intact bilaterally Neck supple Resp normal respiratory effort and clear to auscultation bilaterally Cardio regular rate, regular rhythm and no murmurs GI no masses Inspection: abdominal distention Auscultation: normoactive bowel sounds Palpation: tender RUQ and guarding; Negative for rigid Extremity full ROM General Extremety ED: Negative for edema or tenderness General Extremity: Negative for edema Neuro Sensorium / Orientation: alert, oriented to person, oriented to place and oriented to time Motor Exam: Negative for general weakness Psych mental status grossly normal Skin General Skin Exam: Negative for jaundice Lesions: no lesions Rashes: no rashes MDM MDM MDM Narrative Medical decision making narrative: Patient evaluated for right upper quadrant abdominal pain. Been occurring since last night. Patient is in significant discomfort upon arrival and requires 8 mg of IV morphine and then 1 mg of IV Dilaudid for pain control. He is also given IV fluids. Given the amount of abdominal pain he has as well as his abdominal surgical history I did obtain CT of his abdomen pelvis looking for signs of obstruction, perforation/free air. This is negative however he does have gallstones. Right upper quadrant ultrasound obtained shows dilated common bile duct as well as dilated gallbladder wall. Given his symptoms I am concerned about acute cholecystitis. He does not have a transaminitis and his bilirubin is normal status. Patient is discussed with surgeon on-call, Dr. Alex who will come down to evaluate the patient. Patient is agreeable with this plan of care. He remains hemodynamically stable in the emergency room. Patient is found to have microscopic hematuria on urinalysis however it is not consistent with infection he does not have a kidney stone. The etiology of this is unclear. EKG interpreted by emergency medicine physician obtained for preoperative clearance Normal sinus rhythm at a rate of [address] segments Lab Data Attestation: I reviewed the patient's lab results. Labs: Laboratory Results - last 24 hr 06/05/0302/17/22 02/17/22 07:42 07:42 08:03 WBC 8.2 RBC 5.22 Hgb 16.5 Hct 47.8 MCV 91.6 MCH 31.6 MCHC 34.5 RDW Std Deviation 42.8 RDW Coeff of Reshma 12.8 Plt Count 244 MPV 9.0 Immature Gran % (Auto) 0.400 Neut % (Auto) 75.4 H Lymph % (Auto) 15.3 L [place] % (Auto) 8.2 Eos % (Auto) 0.5 Baso % (Auto) 0.2 Absolute Neuts (auto) 6.2 Absolute Lymphs (auto) 1.25 Nucleated RBC % 0 Sodium 136 Potassium 4.4 Chloride 102 Carbon Dioxide 26.0 Anion Gap 8 BUN 21 H Creatinine 0.93 Estim Creat Clear Calc 86.13 Est GFR (MDRD) Af Amer 106 Est GFR (MDRD) Non-Af 88 BUN/Creatinine Ratio 22.6 H Glucose 137 H Lactic Acid 0.9 Calcium 9.4 Total Bilirubin 1.00 Direct Bilirubin 0.29 AST 17 ALT 35 Alkaline Phosphatase 68 Total Protein 7.6 Albumin 3.8 Globulin 3.8 Lipase 56 L Urine Color Urine Clarity Urine pH Ur Specific [place] Urine Protein Urine Glucose (UA) Urine Ketones Urine Occult Blood Urine Nitrite Urine Bilirubin Urine Urobilinogen Ur Leukocyte Esterase Urine RBC Urine WBC Ur Squamous Epith Cells Urine Bacteria Urine Mucus 02/17/22 09:18 WBC RBC Hgb Hct MCV MCH MCHC RDW Std Deviation RDW Coeff of Reshma Plt Count MPV Immature Gran % (Auto) Neut % (Auto) Lymph % (Auto) [place] % (Auto) Eos % (Auto) Baso % (Auto) Absolute Neuts (auto) Absolute Lymphs (auto) Nucleated RBC % Sodium Potassium Chloride Carbon Dioxide Anion Gap BUN Creatinine Estim Creat Clear Calc Est GFR (MDRD) Af Amer Est GFR (MDRD) Non-Af BUN/Creatinine Ratio Glucose Lactic Acid Calcium Total Bilirubin Direct Bilirubin AST ALT Alkaline Phosphatase Total Protein Albumin Globulin Lipase Urine Color Yellow Urine Clarity Clear Urine pH 6.0 Ur Specific [place] 1.020 Urine Protein Negative Urine Glucose (UA) Normal Urine Ketones Negative Urine Occult Blood 250 H Urine Nitrite Negative Urine Bilirubin Negative Urine Urobilinogen Normal Ur Leukocyte Esterase 25 H Urine RBC 25-50 SEEN Urine WBC 0-5 SEEN Ur Squamous Epith Cells 0 SEEN Urine Bacteria 0 SEEN Urine Mucus 0 SEEN Radiography Diagnostic Testing: Clinical Impression(s) from Imaging Studies Abdomen/Pelvis CT 02/17/22 07:54 IMPRESSION: Multiple gallstones. Findings suggestive of a small cyst in the inferior lateral aspect of the right kidney although correlation with ultrasound is recommended. Horseshoe kidney. 2.1 cm x 0.8 cm fat-containing nodule in the peripheral lateral aspect of the right lower lobe. Electronically Signed: Sonny Padron MD at 9:17 EDT , Gallbladder Ultrasound 02/17/22 09:20 IMPRESSION: Hepatomegaly and diffuse fatty infiltration of the liver. Multiple gallstones with thickening of the gallbladder wall. Horseshoe kidney. Small right renal cyst. Electronically Signed: Sonny Padron MD at 10:49 EDT , Discharge Plan Triage Chief Complaint: Abd Pain ED Provider: Lizbeth Khalil Dx/Rx/DC Orders Clinical Impression: Acute cholecystitis Primary Care Provider: Tri Choudhury Disposition Disposition: Acute Care [facility]
[2022-02-17] MEDS: 0.9% Normal Saline 1,000 ML 1000 ML IV (08:04)
[2022-02-17] MEDS: morphine 8 MG/ML Syringe IV (08:04)
[2022-02-17 08:15] LABS: Absolute Lymphocyte Count 1.25 X10^3/uL (0.83-4.51); Absolute Neutrophil Count 6.2 X10^3/uL (2.0-7.7); Basophil# 0.02 X10^3/uL; Basophil% 0.2 % (0-1); Eosinophil# 0.04 X10^3/uL; Eosinophils% 0.5 % (0-5); Hematocrit 47.8 % (40-54); Hemoglobin 16.5 g/dL (13.0-16.5); Lymphocyte # 1.25 X10^3/ul (0.83-4.51); Lymphocyte % 15.3 % (19-41); Mean Corp Hgb Conc 34.5 g/dL (32-36); Mean Corpuscular Hgb 31.6 pg (27.0-32.0); Mean Corpuscular Volume 91.6 fL (80-94); Monocyte# 0.67 X10^3/uL; Monocyte% 8.2 % (0-10); NRBC Flagged by Analyzer 0 % (0-5); Neutrophil # 6.17 X10^3/uL (2.7-7.7); Neutrophil % 75.4 % (47-70); Platelet Count 244 K/mm3 (150-450); RBC Distribution Width CV 12.8 % (11.6-14.6); RBC Distribution Width SD 42.8 fl (35.1-43.9); Red Blood Count 5.22 M/mm3 (4.6-6.2); White Blood Count 8.2 K/mm3 (4.4-11.0)
[2022-02-17 08:32] LABS: AST(SGOT) 17 U/L (15-37); Alanine Aminotransfer ALT/SGPT 35 U/L (16-61); Albumin, Serum 3.8 g/dL (3.2-5.0); Alkaline Phosphatase 68 U/L (45-117); Anion Gap 8 (5-15); BUN 21 mg/dL (7-18); BUN/Creat Ratio 22.6 RATIO (10-20); Bilirubin, Direct 0.29 mg/dL (0.00-0.30); Calcium,Total 9.4 mg/dL (8.5-10.1); Chloride 102 mmol/L (98-107); Creatinine, Serum 0.93 mg/dL (0.70-1.30); EST Glomerular Filtration Rate 88 mL/min (>60); Est Glom Filt Rate - Afr Amer 106 mL/min (>60); Estimated Creatinine Clearance 86.13 ml/min; Globulin 3.8 g/dL (2.2-4.2); Glucose 137 mg/dL (74-106); Lipase 56 U/L (73-393); Potassium 4.4 mmol/L (3.5-5.1); Protein, Total 7.6 g/dL (6.4-8.2); Sodium Level 136 mmol/L (136-145)
[2022-02-17 08:36] LABS: Lactic Acid 0.9 mmol/L (0.4-1.9)
--- NOTE | 2022-02-17 09:20 | US_ITS ---
STUDY: ABDOMINAL ULTRASOUND - RIGHT UPPER QUADRANT REASON FOR VISIT: Male, 61 years old Gall stones, RUQ pain TECHNIQUE: Ultrasound evaluation of the right upper quadrant was performed with real-time and static rodas-scale imaging. TECHNICAL QUALITY: Adequate. COMPARISON: Comparison is made with prior CT scan of the abdomen done earlier in the day. FINDINGS: Liver: The liver is enlarged and measures 23 cm. There is increased echogenicity consistent with fatty infiltration. The bile ducts are within normal limits. There is hepatic color flow. The direction of portal flow is hepatopetal. There is no demonstrated mass lesion. Gallbladder: Normal distended gallbladder. The gallbladder wall is thickened and measures 7.5 mm. There is a positive sonographic Hatch''s sign. There is no pericholecystic fluid. There are multiple echogenic structures within the gallbladder, consistent with multiple gallstones. Sludge is also seen within the gallbladder lumen. Common Bile Duct (C.B.D.): The common bile duct measures 4.0 mm. Pancreas: There is nonvisualization of the pancreas due to overlying bowel gas. Right Kidney: Normal size of the right kidney. The right kidney measures 14.2 cm x 5.8 cm x 7.1 cm. Normal renal cortex. The right cortex measures 1.5 cm. There is a 1.8 cm x 2.2 cm x 2 cm cyst. There is no right hydronephrosis. Horseshoe kidney. US/Gallbladder IMPRESSION: Hepatomegaly and diffuse fatty infiltration of the liver. Multiple gallstones with thickening of the gallbladder wall. Horseshoe kidney. Small right renal cyst. Electronically Signed: Sonny Padron MD at 10:49 EDT ,
[2022-02-17 09:24] LABS: Bacteria 0 SEEN /hpf (None Seen); Mucous, Urine 0 SEEN /hpf (<or=2+); Squamous Epithelial Cells - UA 0 SEEN /hpf (0-5)
[2022-02-17 09:36] LABS: Color, Urine Yellow (Yellow); Glucose, Dipstick Normal (Normal); Ketone-Dipstick Negative (Negative); Leukocyte Esterase-Dipstick 25 /ul (Negative); Nitrite-Dipstick Negative (Negative); Occult Blood-Urine 250 /ul (Negative); Protein-Dipstick Negative (Negative); Urine Bilirubin Dipstick Negative (Negative); Urine Clarity Clear (Clear); Urine Urobilinogen Normal (Normal)
[2022-02-17] MEDS: HYDROmorphone 1 MG/ML Syringe IV ×4 (09:38→23:07)
[2022-02-17 09:43] LABS: Red Blood Cells-Urine 25-50 SEEN /hpf (0-5); White Blood Cells 0-5 SEEN /hpf (0-5)
[2022-02-17 10:08] VITALS: BP 142/88; PULSE 87; RESP 16; O2SAT 96
--- NOTE | 2022-02-17 12:52 | HP.PCM.SX_ITS ---
HPI - General HPI Narrative Gustavo Burdick is a 61 y/o morbidly obese WM who presents with sudden onset of RUQ abdominal pain for less than a day. He states that he has had intermittent abdominal pain for ?years?, but the episodes did not last as long. He denies nausea/emesis. He denies fevers. He denies constipation and/or diarrhea. He was evaluated at [facility] ED and found to have cholelithiasis with thickened gallbladder wall findings c/w acute cholecystitis. He has continued abdominal pain, requiring use of IV narcotics for pain control [facility] Medical History (Updated 02/17/22 @ 12:[address] Renetta Alex MD) Acute cholecystitis Home Medications NK 02/17/22 [History Last Taken Unknown] Allergy/AdvReac Type Severity Reaction Status Date / Time No Known Allergies Allergy Verified 02/17/22 07:47 Social History Smoking Status: Never smoker ROS Constitutional Constitutional: Denies fever(s) or weight loss Cardiovascular Cardiovascular: Denies chest pain Respiratory/Chest Respiratory/Chest: Denies productive cough Gastrointestinal Gastrointestinal: Reports abdominal pain; Denies vomiting Genitourinary Genitourinary: Denies hematuria Musculoskeletal Musculoskeletal: Reports joint pain Integumentary Integumentary: Denies jaundice Neurologic Neurologic: Denies loss of vision Vital Signs Vital Signs Vital Signs: 02/17/22 07:32 02/17/22 10:08 Temperature 98.0 F Temperature Source Temporal Pulse Rate 56 L 87 Respiratory Rate 18 16 Blood Pressure 209/84 H 142/88 H Blood Pressure Mean 125 106 Pulse Ox 98 96 Oxygen Delivery Method Room Air Room Air Weight Weight: 149.685 kg Body Mass Index (BMI) 47.3 Physical Exam Const Constitutional Narrative: apparent abdominal discomfort Resp normal respiratory effort Cardio regular rate GI GI Narrative: abdomen is soft and obese, with tenderness in RUQ abdomen Extremity no clubbing, cyanosis or edema Results Lab / Micro Data Result Diagrams: 02/17/22 07:42 02/17/22 07:42 Labs: Laboratory Results - last 24 hr 02/17/22 07:42: WBC 8.2, RBC 5.22, Hgb 16.5, Hct 47.8, MCV 91.6, MCH 31.6, MCHC 34.5, RDW Std Deviation 42.8, RDW Coeff of Reshma 12.8, Plt Count 244, MPV 9.0, Immature Gran % (Auto) 0.400, Neut % (Auto) 75.4 H, Lymph % (Auto) 15.3 L, [place] % (Auto) 8.2, Eos % (Auto) 0.5, Baso % (Auto) 0.2, Absolute Neuts (auto) 6.2, Absolute Lymphs (auto) 1.25, Nucleated RBC % 0 02/17/22 07:42: Sodium 136, Potassium 4.4, Chloride 102, Carbon Dioxide 26.0, Anion Gap 8, BUN 21 H, Creatinine 0.93, Estim Creat Clear Calc 86.13, Est GFR (MDRD) Af Amer 106, Est GFR (MDRD) Non-Af 88, BUN/Creatinine Ratio 22.6 H, Glucose 137 H, Calcium 9.4, Total Bilirubin 1.00, Direct Bilirubin 0.29, AST 17, ALT 35, Alkaline Phosphatase 68, Total Protein 7.6, Albumin 3.8, Globulin 3.8, Lipase 56 L 02/17/22 08:03: Lactic Acid 0.9 02/17/22 09:18: Urine Color Yellow, Urine Clarity Clear, Urine pH 6.0, Ur Specific [place] 1.020, Urine Protein Negative, Urine Glucose (UA) Normal, Urine Ketones Negative, Urine Occult Blood 250 H, Urine Nitrite Negative, Urine Bilirubin Negative, Urine Urobilinogen Normal, Ur Leukocyte Esterase 25 H, Urine RBC 25-50 SEEN, Urine WBC 0-5 SEEN, Ur Squamous Epith Cells 0 SEEN, Urine Bacteria 0 SEEN, Urine Mucus 0 SEEN Radiology Impression Abdomen/Pelvis CT 02/17/22 07:54 IMPRESSION: Multiple gallstones. Findings suggestive of a small cyst in the inferior lateral aspect of the right kidney although correlation with ultrasound is recommended. Horseshoe kidney. 2.1 cm x 0.8 cm fat-containing nodule in the peripheral lateral aspect of the right lower lobe. Electronically Signed: Sonny Padron MD at 9:17 EDT , Gallbladder Ultrasound 02/17/22 09:20 IMPRESSION: Hepatomegaly and diffuse fatty infiltration of the liver. Multiple gallstones with thickening of the gallbladder wall. Horseshoe kidney. Small right renal cyst. Electronically Signed: Sonny Padron MD at 10:49 EDT , Assessment & Plan Assessment/Plan (1) Acute cholecystitis: PLAN: Patient with clinical and radiological findings c/w acute cholecystitis due to cholelithiasis. Will admit to hospital. Patient with question of cardiac disease, will consult Internal Medicine. Will keep on clear liquid diet, IV hydration, IV pain medications, IV antibiotics. Will tentatively plan for surgery - laparoscopic cholecystectomy tomorrow afternoon. I have discussed the above with the patient and his . I have explained the procedure to the patient. I have counseled the patient as to the risks of the procedure, including but not limited to: infection, bleeding, injury to any blood vessels/nerves, scar tissue, injury to any intraabdominal organs, injury to kidney/ureters, injury to bowel/bladder, injury to the common bile duct/biliary tree, bile leakage, intraabdominal abscess/bleeding, hernias at i ncisional sites, wound infections, possible open procedure, complications of anesthesia, postoperative pneumonia/cardiac problems/blood clots etc. the patient understands. He wishes to proceed. I have answered all questions to the patient?s satisfaction and the patient has no further questions.
--- NOTE | 2022-02-17 12:53 | EKG12_ITS ---
Test Reason : ADMISSION Blood Pressure : / mmHG Vent. Rate : 084 BPM Atrial Rate : 084 BPM P-R Int : 146 ms QRS Dur : 092 ms QT Int : 352 ms P-R-T Axes : 027 003 048 degrees QTc Int : 415 ms Normal sinus rhythm Inferior infarct , age undetermined Abnormal ECG Confirmed by JUD ARNDT, SHERRI ([id number]), mapping editor SPENCER MANUEL ([id number]) on 02/22/2022 7:34:00 AM Referred By: BOBBY Confirmed By:SHERRI RENNER MD
--- NOTE | 2022-02-17 13:03 | PCM.PN.HOSP ---
Subjective Subjective Mr. Burdick is a 61-year-old morbidly obese white male who began having acute onset right upper quadrant pain for approximately 24 hours. He states he has had intermittent abdominal pain and for years but this episode lasted longer than previous. He denied any nausea or vomiting. He denies fever or chills. He has had flatus and bowel movements without any difficulty. He was evaluated in the emergency department and found to have acute cholecystitis with cholelithiasis and a thickened gallbladder wall on ultrasound. He is required IV fluids as well as IV narcotics for pain. General surgery was called to evaluate the patient and has admitted the patient for laparoscopic cholecystectomy to be done probably tomorrow afternoon. Upon my evaluation he reports he also has sleep apnea and wears BiPAP at 20/18. He did indicate he would try to bring in his home unit. He states the last time he saw physician was approximately year and a half ago but has not had any issues. He takes no medications at baseline. He did have a stress test in 2018 that is reported as no myocardial perfusion changes considered diagnostic for stress-induced myocardial ischemia or previous myocardial infarction and his EF was 65% on that study. Objective Data Objective Data Vital Signs: Vital Signs Temp Pulse Resp BP Pulse Ox 98.0 F 87 16 142/88 H 96 02/17/22 07:32 02/17/22 10:08 02/17/22 10:08 02/17/22 10:08 02/17/22 10:08 Oxygen Delivery Method Room Air Weight: 149.685 kg Body Mass Index (BMI) 47.3 Intake & Output: Intake and Output for Last 24 Hours 02/15/22 02/16/22 02/17/22 23:59 23:59 23:59 Intake Total 1000 / 1000 Balance 1000 / 1000 Lab / Micro Data Result Diagrams: 02/17/22 07:42 02/17/22 07:42 Labs: Laboratory Results - last 24 hr 02/17/22 07:42: WBC 8.2, RBC 5.22, Hgb 16.5, Hct 47.8, MCV 91.6, MCH 31.6, MCHC 34.5, RDW Std Deviation 42.8, RDW Coeff of Reshma 12.8, Plt Count 244, MPV 9.0, Immature Gran % (Auto) 0.400, Neut % (Auto) 75.4 H, Lymph % (Auto) 15.3 L, [place] % (Auto) 8.2, Eos % (Auto) 0.5, Baso % (Auto) 0.2, Absolute Neuts (auto) 6.2, Absolute Lymphs (auto) 1.25, Nucleated RBC % 0 02/17/22 07:42: Sodium 136, Potassium 4.4, Chloride 102, Carbon Dioxide 26.0, Anion Gap 8, BUN 21 H, Creatinine 0.93, Estim Creat Clear Calc 86.13, Est GFR (MDRD) Af Amer 106, Est GFR (MDRD) Non-Af 88, BUN/Creatinine Ratio 22.6 H, Glucose 137 H, Calcium 9.4, Total Bilirubin 1.00, Direct Bilirubin 0.29, AST 17, ALT 35, Alkaline Phosphatase 68, Total Protein 7.6, Albumin 3.8, Globulin 3.8, Lipase 56 L 02/17/22 08:03: Lactic Acid 0.9 02/17/22 09:18: Urine Color Yellow, Urine Clarity Clear, Urine pH 6.0, Ur Specific [place] 1.020, Urine Protein Negative, Urine Glucose (UA) Normal, Urine Ketones Negative, Urine Occult Blood 250 H, Urine Nitrite Negative, Urine Bilirubin Negative, Urine Urobilinogen Normal, Ur Leukocyte Esterase 25 H, Urine RBC 25-50 SEEN, Urine WBC 0-5 SEEN, Ur Squamous Epith Cells 0 SEEN, Urine Bacteria 0 SEEN, Urine Mucus 0 SEEN Radiography Diagnostic Testing: Radiology Impression Abdomen/Pelvis CT 02/17/22 07:54 IMPRESSION: Multiple gallstones. Findings suggestive of a small cyst in the inferior lateral aspect of the right kidney although correlation with ultrasound is recommended. Horseshoe kidney. 2.1 cm x 0.8 cm fat-containing nodule in the peripheral lateral aspect of the right lower lobe. Electronically Signed: Sonny Padron MD at 9:17 EDT , Gallbladder Ultrasound 02/17/22 09:20 IMPRESSION: Hepatomegaly and diffuse fatty infiltration of the liver. Multiple gallstones with thickening of the gallbladder wall. Horseshoe kidney. Small right renal cyst. Electronically Signed: Sonny Padron MD at 10:49 EDT , Physical Exam Const alert, oriented x3 and no apparent distress Constitutional Narrative: Morbidly obese white male sitting up in bed in the emergency department, is at bedside, patient is complaining of some right upper quadrant pain and states that the previous medication given worked better than the medication he was just given, he appears nontoxic Exam Limitations: no limitations Nutritional Appearance: morbidly obese HEENT head/scalp atraumatic and moist oral mucous membranes HEENT Narrative: Mallampati 3-4, dentition is good, no thrush Head and Scalp: normocephalic Resp normal respiratory effort, no retractions, no use of accessory muscles and clear to auscultation bilaterally Resp Narrative: Distant secondary to body habitus Auscultation: Negative for crackles, rales, rhonchi or wheezes Cardio regular rate, regular rhythm, S1 normal heart sound, S2 normal heart sound, no murmurs, no rub, no gallops, no clicks and no JVD Cardio Narrative: Distant secondary to body habitus GI normal to inspection, nondistended, normoactive bowel sounds, soft to palpation and non-distended GI Narrative: Large protuberant abdomen with tenderness in the right upper quadrant Palpation: tender RUQ Extremity no clubbing, cyanosis or edema Peripheral Pulses: Yes pulses 2+ throughout Neuro oriented x3, CN's II-XII intact bilaterally, moves all extremities, no focal motor deficits and no sensory deficits noted Sensorium / Orientation: awake and alert Speech: speech normal Motor Exam: strength 5/5 throughout Psych affect normal Assessment & Plan Assessment/Plan (1) Acute cholecystitis: PLAN: Acute cholecystitis with cholelithiasis -Management per primary service -OR tomorrow -Would recommend postoperative BiPAP to be used as patient has baseline severe obstructive sleep apnea -Preoperative EKG is pending -Patient did have a negative stress test for inducible ischemia in 2018 -Report read -->Rest and stress SPECT current nuclear imaging demonstrate myocardial perfusion changes at rest which appear to improve and/or normalize following stress appearing compatible shifting soft tissue attenuation/artifact with no myocardial perfusion changes consider diagnostic for associated stress-induced myocardial ischemia or previous myocardial injury/infarction. The gated Cardiolite study reports an LVEF of 65%. Obstructive sleep apnea -Patient wears BiPAP at baseline at -Patient plans on having his bring in the home unit -BiPAP ordered here for nocturnally -Recommend BiPAP use immediate postoperatively as patient is coming out of anesthesia Elevated blood pressures -Does not have a baseline diagnosis of hypertension -Has not seen a physician approximately 1.5 years -We will monitor here--> acute elevations may be related to pain -As needed hydralazine for systolic pressures greater than 160 Hyperglycemia -Blood sugar 137 on admitting labs -We will check hemoglobin A1c to rule out diabetes or insulin resistance Microscopic hematuria -Would recommend outpatient follow-up with repeat UA -If patient still has microscopic hematuria at that time I would recommend follow-up with urology DVT prophylaxis -Per primary Charges/Coding Visit Charges OBSV E&M: 56818 Initial observation care L2
[2022-02-17 13:14] VITALS: BP 168/86; PULSE 60; RESP 15; TEMP 36.6; O2SAT 95
[2022-02-17] MEDS: HYDROmorphone 0.5 MG/0.5 ML SYRINGE IV (13:22)
[2022-02-17] MEDS: 0.9% Normal Saline 1,000 ML 200 ML IV ×2 (13:43→20:56)
[2022-02-17 14:07] LABS: Hemoglobin A1c 5.7 % (3.8-5.6)
[2022-02-17 14:27] VITALS: BP 192/77; PULSE 98; RESP 19; TEMP 37.9; O2SAT 94
[2022-02-17 14:52] VITALS: BMI 50.2
--- NOTE | 2022-02-17 16:09 | CHAPLAIN ---
Type of Pastoral Visit _x__ Initial Visit ___ Follow-up Visit ___ On-call Visit ___ General Patient Visit ___ Spiritual Assessment ___ Family Conference ___ Bereavement ___ Rapid Response ___ Code Blue ___ Other (describe below) Pastoral Care Referral From _x__ Patient ___ Family ___ Nurse ___ Physician ___ Horticulture/Floriculture Teacher ___ Internal Medicine Physician ___ Other (describe below) Sacrament/Intervention _x__ Active listening ___ Anointing ___ Mu-Ism ___ Bereavement ___ Communion ___ Reshma exploration ___ ___ Life review _x__ Prayer ___ Reconciliation ___ Sacrament of Sick _x__ Supportive presence ___ Wedding ___ Other (describe below) Pastoral Comments offer of support to this patient and his spouse who are 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
[2022-02-17 21:00] VITALS: BP 133/73; PULSE 60; RESP 20; TEMP 36.7; O2SAT 97
[2022-02-17] MEDS: 0.9% Saline Lock 10 ML Syringe IV (23:07)
[2022-02-18] VITALS (13 sets, daily range): BP systolic 105–178; BP diastolic 56–90; PULSE 54–82; RESP 16–22; TEMP 36.1–37.3; O2SAT 2–97; BMI 50.2
--- NOTE | 2022-02-18 | GALL_PTH ---
PATIENT: WOOD CERDA LOC: [facility] U#:[id number] AGE/SX: 61/M ROOM: [facility] RE02/18/[address]: Dr. Renetta Alex MD : [id number] BED: 1 DIS: 02/20/2022 SPEC #: [id number] RECD: 02/19/22 07:19 STATUS: ELI RECal #: [id number] TREVOR: 02/18/22 00:[address]: Renetta Alex DEPT: SURGICAL PATHOLOGY RECD BY: Marcial Ingram ENTERED: 02/19/22 08:12 SP TYPE: HYACINTH BURKETT DR: MD Dr. Santino Acosta MD Tissues: Gallbladder, NOS Procedures: Surgery Specimen Level III HEADER OPERATION: Laparoscopic converted to open cholecystectomy PRE-OP DIAGNOSIS: Acute cholecystitis TISSUE SUBMITTED: Gallbladder MICROSCOPIC DIAGNOSIS Gallbladder, cholecystectomy: Acute and chronic hemorrhagic and ulcerated cholecystitis and cholelithiasis. Reactive epithelial changes. WAYNE:mann 02/22/2022 MICROSCOPIC DESCRIPTION Slides are reviewed. GROSS DESCRIPTION Received is one container labeled with the patient's name and designated gallbladder. The specimen consists of a previously opened gallbladder measuring 10 x 4 x 2 cm. The serosal surface is congested and hemorrhagic. The cystic duct could not be identified. The mucosa is congested and hemorrhagic. Present in the gallbladder are multiple fragments of brownish-black stones measuring in aggregate 6 x 6 x 2 cm. Sections of the gallbladder reveal congested and hemorrhagic cut surfaces. The gallbladder wall measures up to 0.8 cm in thickness. Water Purifier sections are submitted in two cassettes. / WAYNE:mann 02/19/2022 TC:2 CPT: 54172
[2022-02-18] MEDS: 0.9% Normal Saline 1,000 ML 200 ML IV ×4 (01:55→20:45)
[2022-02-18] MEDS: HYDROmorphone 1 MG/ML Syringe IV ×2 (04:23→10:13)
[2022-02-18] MEDS: 0.9% Saline Lock 10 ML Syringe IV (04:23)
[2022-02-18 06:21] LABS: Absolute Lymphocyte Count 1.01 X10^3/uL (0.83-4.51); Absolute Neutrophil Count 9.8 X10^3/uL (2.0-7.7); Basophil# 0.01 X10^3/uL; Basophil% 0.1 % (0-1); Eosinophil# 0.03 X10^3/uL; Eosinophils% 0.2 % (0-5); Hematocrit 42.6 % (40-54); Hemoglobin 14.5 g/dL (13.0-16.5); Lymphocyte # 1.01 X10^3/ul (0.83-4.51); Lymphocyte % 8.3 % (19-41); Mean Corpuscular Hgb 31.2 pg (27.0-32.0); Mean Corpuscular Volume 91.6 fL (80-94); Mean Platelet Vol. 8.6 fl (6.2-12.0); Monocyte% 9.9 % (0-10); NRBC Flagged by Analyzer 0 % (0-5); Platelet Count 182 K/mm3 (150-450); RBC Distribution Width CV 13.2 % (11.6-14.6); Red Blood Count 4.65 M/mm3 (4.6-6.2); White Blood Count 12.1 K/mm3 (4.4-11.0)
[2022-02-18 06:47] LABS: Anion Gap 5 (5-15); BUN 17 mg/dL (7-18); Calcium,Total 7.9 mg/dL (8.5-10.1); Chloride 105 mmol/L (98-107); Creatinine, Serum 0.85 mg/dL (0.70-1.30); EST Glomerular Filtration Rate 97 mL/min (>60); Est Glom Filt Rate - Afr Amer 118 mL/min (>60); Estimated Creatinine Clearance 94.23 ml/min; Glucose 127 mg/dL (74-106); Potassium 4.1 mmol/L (3.5-5.1); Sodium Level 135 mmol/L (136-145)
--- NOTE | 2022-02-18 13:13 | PCM.PN.HOSP ---
Subjective Subjective Patient states his pain is better controlled. OR this afternoon at 330. No current issues or complaints. Objective Data Objective Data Vital Signs: Vital Signs Temp Pulse Resp BP Pulse Ox 98.1 F 54 L 16 114/71 97 02/18/22 09:05 02/18/22 09:05 02/18/22 09:05 02/18/22 09:05 02/18/22 09:05 Oxygen Delivery Method Room Air Weight: 158.803 kg Body Mass Index (BMI) 50.2 Intake & Output: Intake and Output for Last 24 Hours 02/16/22 02/17/22 02/18/22 23:59 23:59 23:59 Intake Total 2530 / 2530 3183.34 / 3183.34 Balance 2530 / 2530 3183.34 / 3183.34 Lab / Micro Data Result Diagrams: 02/18/22 06:13 02/18/22 06:13 Labs: Laboratory Results - last 24 hr 02/17/22 07:42: Hemoglobin A1c 5.7 H 02/18/22 06:13: WBC 12.1 H, RBC 4.65, Hgb 14.5, Hct 42.6, MCV 91.6, MCH 31.2, MCHC 34.0, RDW Std Deviation 44.0 H, RDW Coeff of Reshma 13.2, Plt Count 182, MPV 8.6, Immature Gran % (Auto) 0.500, Neut % (Auto) 81.0 H, Lymph % (Auto) 8.3 L, [place] % (Auto) 9.9, Eos % (Auto) 0.2, Baso % (Auto) 0.1, Absolute Neuts (auto) 9.8 H, Absolute Lymphs (auto) 1.01, Nucleated RBC % 0 02/18/22 06:13: Sodium 135 L, Potassium 4.1, Chloride 105, Carbon Dioxide 25.0, Anion Gap 5, BUN 17, Creatinine 0.85, Estim Creat Clear Calc 94.23, Est GFR (MDRD) Af Amer 118, Est GFR (MDRD) Non-Af 97, BUN/Creatinine Ratio 20.0, Glucose 127 H, Calcium 7.9 L Radiography Diagnostic Testing: Radiology Impression Gallbladder Ultrasound 02/17/22 09:20 IMPRESSION: Hepatomegaly and diffuse fatty infiltration of the liver. Multiple gallstones with thickening of the gallbladder wall. Horseshoe kidney. Small right renal cyst. Electronically Signed: Sonny Padron MD at 10:49 EDT , ADDENDUM: 02/17/22 1351 IMPRESSION: undefined Physical Exam Const alert, oriented x3 and no apparent distress Constitutional Narrative: Morbidly obese white male sitting up in a chair at the bedside, is at the bedside, nursing is at the bedside, patient appears comfortable nontoxic Exam Limitations: no limitations Nutritional Appearance: morbidly obese HEENT head/scalp atraumatic and moist oral mucous membranes HEENT Narrative: Mallampati 3-4 Head and Scalp: normocephalic Resp normal respiratory effort, no retractions, no use of accessory muscles and clear to auscultation bilaterally Resp Narrative: Distant secondary to body habitus Auscultation: Negative for crackles, rales, rhonchi or wheezes Cardio regular rate, regular rhythm, S1 normal heart sound, S2 normal heart sound, no murmurs, no rub, no gallops, no clicks and no JVD Cardio Narrative: Distant secondary to body habitus GI normal to inspection, nondistended, normoactive bowel sounds, soft to palpation and non-distended GI Narrative: Large protuberant abdomen with tenderness in the right upper quadrant Palpation: tender RUQ Extremity no clubbing, cyanosis or edema Peripheral Pulses: Yes pulses 2+ throughout Neuro oriented x3, moves all extremities and no focal motor deficits Sensorium / Orientation: awake and alert Speech: speech normal Assessment & Plan Assessment/Plan (1) Acute cholecystitis: PLAN: Acute cholecystitis with cholelithiasis -Management per primary service -OR this afternoon -Would recommend postoperative BiPAP to be used as patient has baseline severe obstructive sleep apnea -Discussed with nursing to assure this went with him -Preoperative EKG was reviewed and shows no signs of ischemia or concerning changes -Patient did have a negative stress test for inducible ischemia in 2018 -Report read -->Rest and stress SPECT current nuclear imaging demonstrate myocardial perfusion changes at rest which appear to improve and/or normalize following stress appearing compatible shifting soft tissue attenuation/artifact with no myocardial perfusion changes consider diagnostic for associated stress-induced myocardial ischemia or previous myocardial injury/infarction. The gated Cardiolite study reports an LVEF of 65%. Obstructive sleep apnea -Patient wears BiPAP at baseline at -Patient has pulm unit at the bedside -BiPAP continue BiPAP at at bedtime -Recommend BiPAP use immediate postoperatively as patient is coming out of anesthesia Elevated blood pressures -Blood pressures appear improved today- Continue to monitor -As needed hydralazine for systolic pressures greater than 160 Hyperglycemia -Blood sugar 137 on admitting labs -Globin A1c is 5.7 which is not consistent with diabetes however does appear to he has some insulin resistance Microscopic hematuria -Would recommend outpatient follow-up with repeat UA -If patient still has microscopic hematuria at that time I would recommend follow-up with urology DVT prophylaxis -Per primary Charges/Coding Visit Charges Inpatient E&M: 38756 Subs Hosp L2
[2022-02-18] MEDS: Lactated Ringers 1,000 ML 100 ML IV ×2 (15:00→16:46)
--- NOTE | 2022-02-18 15:07 | CHAPLAIN ---
Type of Pastoral Visit ___ Initial Visit _x__ Follow-up Visit ___ On-call Visit ___ General Patient Visit ___ Spiritual Assessment ___ Family Conference ___ Bereavement ___ Rapid Response ___ Code Blue ___ Other (describe below) Pastoral Care Referral From ___ Patient _x__ Family ___ Nurse ___ Physician ___ Metal Storage Worker ___ Kiln Furniture Caster ___ Other (describe below) Sacrament/Intervention ___ Active listening ___ Anointing ___ Nondenominational ___ Bereavement ___ Communion ___ Reshma exploration ___ ___ Life review ___ Prayer ___ Reconciliation ___ Sacrament of Sick _x__ Supportive presence ___ Wedding ___ Other (describe below) Pastoral Comments presurgery check in with patient for support
--- NOTE | 2022-02-18 18:13 | OP.PCM_ITS ---
Report of Operation Date of Procedure: 02/18/22 Pre-Operative Diagnosis: acute cholecystitis Post-Operative Diagnosis: acute cholecystitis, intraabdominal adhesions Surgery/Procedure Performed:: laparoscopic cholecystectomy converted to open cholecystectomy Description of Surgical Findings:: dense adhesions from patient's previous laparotomy for liver trauma, acute cholecystitis with obstruction Surgeon: Renetta Alex shearing shed hand: Krystle Carpio Type of Anesthesia: General Anesthesiologist: Renetta Arias Specimen's removed: gallbladder and contents Drains: 15 Fr passive round drains x 2 in RUQ of abdomen Estimated Blood Loss (mL): 300 ml Fluids Replaced: 1800 ml RL Description of Procedure: After informed consent was given, the patient was brought to the Operating Room. Appropriate time out protocol was followed. The patient was placed in the supine position. The patient was then placed under general endotracheal anesthesia by the anesthesia provider. The abdomen was then prepped with a sterile surgical skin preparation and sterile surgical drapes were placed. An area superior to the umbilical dimple was grasped with penetrating clamps and the skin and subcutaneous tissues were infiltrated with 0.25% marcaine. A skin incision was then made with a 15 blade scalpel. The anterior abdominal wall was elevated and layer by layer incision was made to enter the intraabdominal cavity. Of note, the patient had a large amount of adhesions due to his previous surgery and therefore finger dissection was done to allow room for trocar placement. An 11 mm trocar was then placed and aA CO2 pneumoperitoneum was then created. A 10mm laparoscope was then inserted into the trocar and careful attention was directed to the intraabdominal contents. There were a large amount of adhesions. Space was cleared to allow for placement of a 5 mm trocar in the upper abdominal area. Also a right lateral 5mm trocar was placed under direct visualization. The adhesions were then taken down carefully avoiding any injury to bowel. There were dense adhesions in the entirety of the RUQ of the abdomen. This took some time to take down and even to identify the liver. The liver, once identified, had dense adhesions to its as well as to the large colon. Because of the extensive adhesions, decision was made to convert this procedure to an open procedure. The right lower ribs were palpated out, and a right subcostal incision was made with a 10 blade scalpel and carried down to the subcutaneous tissues. Any hemorrhage was adequately controlled with electrocoagulation. The anterior abdominal fascia was then carefully divided with electrocautery. The right rectus abdominis muscle was then carefully divided and appropriate hemostatic control was applied to all blood vessels. The posterior fascial sheath and transversalis fascia was then divided thus entering into the abdominal cavity. This was carefully done to avoid any injury to any intra-abdominal organs. A Bookwalter retractor was used for increased operative exposure. Attention was then directed to the RUQ. There were dense adhesions of the anterior liver to the abdominal wall. Attempts to free this up was aborted. The undersurface of the liver edge was identified, this took some time because of the large amount of fatty adhesions to the liver. Blunt dissection was then done through the fat ty dense adhesions to palpate out the gallbladder. The gallbladder was then palpated. Blunt dissection was then done to separate the gallbladder from the surrounding dense fatty adhesions. The gallbladder was thus delineated. The gallbladder was then from the liver in the dome down fashion. The posterior wall was densely adhesed to the liver bed and therefore left in situ. The gallbladder was opened and there was hydrops noted. There were many stones in the gallbladder which were removed manually. Dissection continued to separate the gallbladder from the surrounding structures. The gallbladder wall was thickened. The dense fatty inflammatory type adhesions were taken down by blunt dissection. Oozing was noted due to inflammation and obvious bleeding vessels were controlled with electrocautery. There was a large amount of inflammation with hemorrhagic oozing and as the gallbladder wall was thickened. Hemostasis was controlled by pressure and electrocautery. Once the gallbladder was then from the liver bed (which required careful dissection and time), then blunt dissection was used on the proximal portion of the gallbladder to delineate the cystic duct and artery. Smaller vessels had ligaclips applied. The artery was identified and ligated with 2-0 Vicryl suture. The cystic duct was identified and doubly ligated with 2-0 Vicryl suture. The ga llbladder was then transected and forward to pathology department for analysis. Hemostasis was controlled by electrocautery in all areas of dissection. The area was the vigorously irrigated with warmed normal saline and all irrigant was aspirated out. A 15 Fr round passive drain was placed in the gallbladder fossa and brought out through separate skin incision. The drain was placed inferior to the liver draining the gallbladder fossa. Another drain was directed into the intraabdominal space. It was brought out via a separate skin incision. The peritoneum and transversalis fascia were then closed using a running 0 Vicryl suture. Closure was done carefully to avoid any entrapment of bowel or injury to bowel. The posterior fascia was closed using 0 PDS in a running continuous fashion. The anterior fascia was closed using 0 PDS in a running continuous fashion. The wound was irrigated with normal saline. The skin incision was reapproximated with skin lamont. A sterile dressing was then applied. The drains were then sutured to the skin using 3-0 nylon suture. The patient was then extubated and brought to the Recovery Room in stable condition. Complications none noted Admit VTE Documentation VTE Present on Admission: Yes VTE Mechan Device Prophylaxis: SCD's
[2022-02-18] MEDS: Bupivacaine Mpf 0.5% 30 ML VIAL (18:35)
--- NOTE | 2022-02-18 19:51 | SUR.PHASEI ---
AND HER FRIEND IN TO SEE AND TALK WITH PATIENT IN PACU. UPDATED ON PATIENT'S CONDITION
[2022-02-18] MEDS: hydrALAZINE 20 MG/ML Vial 10 MG IV (23:08)
[2022-02-19 00:45] VITALS: BP 168/89; PULSE 74; RESP 20; TEMP 37.3; O2SAT 94
[2022-02-19] MEDS: 0.9% Normal Saline 1,000 ML 200 ML IV ×3 (01:47→12:03)
[2022-02-19 03:00] VITALS: BP 147/78; PULSE 69; RESP 20; TEMP 36.4; O2SAT 95
[2022-02-19 06:14] LABS: Absolute Lymphocyte Count 0.73 X10^3/uL (0.83-4.51); Absolute Neutrophil Count 9.7 X10^3/uL (2.0-7.7); Basophil# 0.01 X10^3/uL; Basophil% 0.1 % (0-1); Hematocrit 40.4 % (40-54); Hemoglobin 13.6 g/dL (13.0-16.5); Lymphocyte # 0.73 X10^3/ul (0.83-4.51); Lymphocyte % 6.3 % (19-41); Mean Corp Hgb Conc 33.7 g/dL (32-36); Mean Corpuscular Hgb 31.1 pg (27.0-32.0); Mean Corpuscular Volume 92.2 fL (80-94); Mean Platelet Vol. 8.8 fl (6.2-12.0); Monocyte# 1.03 X10^3/uL; Monocyte% 8.9 % (0-10); NRBC Flagged by Analyzer 0 % (0-5); Neutrophil # 9.67 X10^3/uL (2.7-7.7); Neutrophil % 83.6 % (47-70); Platelet Count 166 K/mm3 (150-450); RBC Distribution Width CV 13.1 % (11.6-14.6); RBC Distribution Width SD 44.4 fl (35.1-43.9); Red Blood Count 4.38 M/mm3 (4.6-6.2); White Blood Count 11.6 K/mm3 (4.4-11.0)
[2022-02-19 07:02] LABS: Anion Gap 5 (5-15); BUN 14 mg/dL (7-18); BUN/Creat Ratio 17.8 RATIO (10-20); Calcium,Total 8.1 mg/dL (8.5-10.1); Chloride 108 mmol/L (98-107); Creatinine, Serum 0.78 mg/dL (0.70-1.30); EST Glomerular Filtration Rate 107 mL/min (>60); Est Glom Filt Rate - Afr Amer 129 mL/min (>60); Estimated Creatinine Clearance 102.69 ml/min; Glucose 136 mg/dL (74-106); Potassium 4.2 mmol/L (3.5-5.1); Sodium Level 138 mmol/L (136-145)
--- NOTE | 2022-02-19 07:27 | PN.SURG_ITS ---
Subjective Subjective Patient feels sore at incisional site he denies the patient that he initially presented with Objective Data Objective Data Vital Signs: Vital Signs Temp Pulse Resp BP Pulse Ox 97.5 F L 69 20 H 147/78 H 95 02/19/22 03:00 02/19/22 03:00 02/19/22 03:00 02/19/22 03:00 02/19/22 03:00 Oxygen Flow Rate (L/min) 2 Oxygen Delivery Method Room Air Weight: 158.803 kg Body Mass Index (BMI) 50.2 Intake & Output: Intake and Output for Last 24 Hours 02/17/22 02/18/22 02/19/22 23:59 23:59 23:59 Intake Total 2530 / 2530 6033.34 / 6333.34 2590 / 2590 Output Total 80 / 225 205 / 205 Balance 2530 / 2530 5953.34 / 6108.34 2385 / 2385 Lab / Micro Data Result Diagrams: 02/19/22 06:01 02/19/22 06:01 Labs: Laboratory Results - last 24 hr 02/19/22 06:01: WBC 11.6 H, RBC 4.38 L, Hgb 13.6, Hct 40.4, MCV 92.2, MCH 31.1, MCHC 33.7, RDW Std Deviation 44.4 H, RDW Coeff of Reshma 13.1, Plt Count 166, MPV 8.8, Immature Gran % (Auto) 1.100 H, Neut % (Auto) 83.6 H, Lymph % (Auto) 6.3 L, [place] % (Auto) 8.9, Eos % (Auto) 0.0, Baso % (Auto) 0.1, Absolute Neuts (auto) 9.7 H, Absolute Lymphs (auto) 0.73 L, Nucleated RBC % 0 02/19/22 06:01: Sodium 138, Potassium 4.2, Chloride 108 H, Carbon Dioxide 25.0, Anion Gap 5, BUN 14, Creatinine 0.78, Estim Creat Clear Calc 102.69, Est GFR (MDRD) Af Amer 129, Est GFR (MDRD) Non-Af 107, BUN/Creatinine Ratio 17.8, Glucose 136 H, Calcium 8.1 L Physical Exam Const alert and oriented x3 Resp normal respiratory effort GI GI Narrative: abdomen soft and obese dressings intact - minimal seepage KENNETH output is sanguinous - to be expected due to inflammatory oozing Assessment & Plan Assessment/Plan (1) Status post cholecystectomy: PLAN: Encourage ambulation encourage incentive spirometry can be discharged today, but depends upon patient's cooperation for above and also pain control advance diet
[2022-02-19 07:59] VITALS: BP 141/70; PULSE 68; RESP 16; TEMP 36.8; O2SAT 95
--- NOTE | 2022-02-19 08:16 | PN.HOSP_ITS ---
Subjective Subjective Follow-up post lap converted open cholecystectomy. Patient has abdominal distention. No fever Objective Data Objective Data Vital Signs: Vital Signs Temp Pulse Resp BP Pulse Ox 98.2 F 68 16 141/70 H 95 02/19/22 07:59 02/19/22 07:59 02/19/22 07:59 02/19/22 07:59 02/19/22 07:59 Oxygen Flow Rate (L/min) 2 Oxygen Delivery Method Room Air Weight: 350 lb 1.6 oz Body Mass Index (BMI) 50.2 Intake & Output: Intake and Output for Last 24 Hours 02/17/22 02/18/22 02/19/22 23:59 23:59 23:59 Intake Total 2530 / 2530 6033.34 / 6333.34 2590 / 2590 Output Total 80 / 225 205 / 205 Balance 2530 / 2530 5953.34 / 6108.34 2385 / 2385 Lab / Micro Data Result Diagrams: 02/19/22 06:01 02/19/22 06:01 Labs: Laboratory Results - last 24 hr 02/19/22 06:01: WBC 11.6 H, RBC 4.38 L, Hgb 13.6, Hct 40.4, MCV 92.2, MCH 31.1, MCHC 33.7, RDW Std Deviation 44.4 H, RDW Coeff of Reshma 13.1, Plt Count 166, MPV 8.8, Immature Gran % (Auto) 1.100 H, Neut % (Auto) 83.6 H, Lymph % (Auto) 6.3 L, [place] % (Auto) 8.9, Eos % (Auto) 0.0, Baso % (Auto) 0.1, Absolute Neuts (auto) 9.7 H, Absolute Lymphs (auto) 0.73 L, Nucleated RBC % 0 02/19/22 06:01: Sodium 138, Potassium 4.2, Chloride 108 H, Carbon Dioxide 25.0, Anion Gap 5, BUN 14, Creatinine 0.78, Estim Creat Clear Calc 102.69, Est GFR (MDRD) Af Amer 129, Est GFR (MDRD) Non-Af 107, BUN/Creatinine Ratio 17.8, Glucose 136 H, Calcium 8.1 L Physical Exam Narrative No abdominal pain but abdominal discomfort. Physical exam General: Alert, Oriented x3, Cooperative HEENT: Atraumatic, PERRLA, EOMI, Normocephalic Oral: No Gingival or Mucosal Lesions/ Ulcerations Neck: Supple, No JVD, Negative Carotid Bruits Lungs: Air entry diminished in bilateral lung bases. No crepitation/rhonchi Cardiovascular: Regular rate, Regular Rhythm, Normal S1, Normal S2, No murmurs Abdomen: Soft, distended. Surgical dressing dry. 2 KENNETH drains present; 1 with 50 mL of serosanguineous fluid, another, minimal amount. : External urinary catheter. No renal angle tenderness. No suprapubic tenderness. Extremities: No edema, Capillary Refill Less than 3 Seconds Skin: No rashes, No breakdown Musculoskeletal: No Tenderness to Palpation of Joints or Extremities Neurological: Cranial nerves II-XII grossly intact, DTR 2+/4 and Symmetrical, Neuro grossly intact Psych/Mental Status: Normal Affect, Appropriate. Assessment & Plan Assessment/Plan (1) Acute cholecystitis: PLAN: 1. Acute cholecystitis with cholelithiasis: Patient had laparoscopic converted to open cholecystectomy. Dense adhesions from previous laparotomy over the entire right upper quadrant abdomen and liver bed therefore lap was converted to open. 2 KENNETH drains. My leukocytosis. Hemoglobin 13.6 g. Preop EKG and nuclear stress test was negative. Obstructive sleep apnea -Patient wears BiPAP at baseline at 20/18 -Patient has pulm unit at the bedside -BiPAP continue BiPAP at at bedtime -Recommend BiPAP use immediate postoperatively as patient is coming out of anesthesia Elevated blood pressures: Blood pressure is 135/70 Continue to monitor -As needed hydralazine for systolic pressures greater than 160 Hyperglycemia -Blood sugar 137 on admitting labs -Globin A1c is 5.7 which is not consistent with diabetes however does appear to he has some insulin resistance Microscopic hematuria: UA shows 25-50 RBC cells per hpf. -Would recommend outpatient follow-up with repeat UA -If patient still has microscopic hematuria at that time I would recommend follow-up with urology DVT prophylaxis -Per primary Charges/Coding Visit Charges Inpatient E&M: 78742 Subs Hosp L2
[2022-02-19] MEDS: oxyCODONE 5 MG Tablet PO (08:48)
--- NOTE | 2022-02-19 10:15 | CASEMGMT ---
Addendum entered by Olga Lidia Freeman 02/19/22 10:56: Pt states has 3 steps into home and 7 steps up to bathroom but does have BSC, if needed. Ese YONUG CM Original Note: HANNAH MIGUEL assessment: Face to Face with patient for initial transition planning/care coordination assessment. RN MYRIAM introduced self and role at [facility], pt voices understanding and consents to assessment. Pt is sitting up in chair in no distress on room air. Pt is A/Ox4 and answers all questions appropriately. Pt's is at bedside during assessment. Care providers, pharmacy, and demographics verified. Presentation: RUQ abd pain started last night-denies N/V/D Admitting dx: Acute cholecystitis PCP: Macey Specialists: Isai surgeon Preferred Pharmacy: [facility] Insurance: MMO Prescription Benefit: MMO Living Will/HPOA: Pt states has a LW but not HPOA and is aware that they are not on file at [facility]. LNOK: Keisha Burdick, Living Arrangements: Pt lives in split level home with and is concerned about doing stairs once home d/t surgery. Therapy orders placed. Pt is independent at home with ADL's normally. Transportation: Pt drives self and states no transportation concerns. DME/HHC: Pt has the following DME: cane, WW, and BSC. Pt states no need for any further DME. Pt states no hx of HHC or SNF in past. Pt states no concerns with going home at time of discharge. 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 Pt states does not smoke cigarettes or drink ETOH. Pt voices no further concerns/needs. CM to follow for any further discharge planning/needs. Advised pt to ask for CM if any further questions/concerns/needs arise, voices understanding. Pt Goal: Home Plan: Home, pending therapy evals. Ese YOUNG CM
[2022-02-19 12:00] VITALS: BP 137/72; PULSE 65; RESP 16; TEMP 37.1; O2SAT 96
[2022-02-19] MEDS: Acetaminophen 325 MG Tablet 650 MG PO ×2 (12:03→18:24)
[2022-02-19 15:48] VITALS: BP 135/71; PULSE 64; RESP 16; TEMP 37.1; O2SAT 97
[2022-02-19 21:14] VITALS: BP 144/73; PULSE 66; RESP 18; TEMP 37.4; O2SAT 95
[2022-02-20 03:40] VITALS: BP 138/68; PULSE 66; RESP 20; TEMP 36.4; O2SAT 95
[2022-02-20] MEDS: Acetaminophen 325 MG Tablet 650 MG PO ×2 (03:43→08:46)
--- NOTE | 2022-02-20 07:46 | PCM.PN.HOSP ---
Subjective Subjective Follow-up for perioperative lap cholecystectomy Objective Data Objective Data Vital Signs: Vital Signs Temp Pulse Resp BP Pulse Ox 97.6 F L 66 20 H 138/68 H 95 02/20/22 03:40 02/20/22 03:40 02/20/22 03:40 02/20/22 03:40 02/20/22 03:40 Oxygen Flow Rate (L/min) 2 Oxygen Delivery Method Room Air Weight: 350 lb 1.505 oz Body Mass Index (BMI) 50.2 Intake & Output: Intake and Output for Last 24 Hours 02/18/22 02/19/22 02/20/22 23:59 23:59 23:59 Intake Total 6033.34 / 6333.34 4736.67 / 5096.67 650 / 650 Output Total 80 / 225 205 / 245 40 / 40 Balance 5953.34 / 6108.34 4531.67 / 4851.67 610 / 610 Lab / Micro Data Result Diagrams: 02/19/22 06:01 02/19/22 06:01 Physical Exam Narrative No abdominal pain but abdominal discomfort. Patient passing flatus. On clear liquid. Date of last bowel movement documented 02/16. Discussed with the surgeon Physical exam General: Alert, Oriented x3, Cooperative HEENT: Atraumatic, PERRLA, EOMI, Normocephalic Oral: No Gingival or Mucosal Lesions/ Ulcerations Neck: Supple, No JVD, Negative Carotid Bruits Lungs: Air entry diminished in bilateral lung bases. No crepitation/rhonchi Cardiovascular: Regular rate, Regular Rhythm, Normal S1, Normal S2, No murmurs Abdomen: Soft, distended. Surgical dressing dry. Discharged with a KENNETH drain : External urinary catheter. No renal angle tenderness. No suprapubic tenderness. Extremities: No edema, Capillary Refill Less than 3 Seconds Skin: No rashes, No breakdown Musculoskeletal: No Tenderness to Palpation of Joints or Extremities Neurological: Cranial nerves II-XII grossly intact, DTR 2+/4 and Symmetrical, Neuro grossly intact Psych/Mental Status: Normal Affect, Appropriate. Assessment & Plan Assessment/Plan (1) Acute cholecystitis: PLAN: 1. Acute cholecystitis with cholelithiasis: Patient had laparoscopic converted to open cholecystectomy. Dense adhesions from previous laparotomy over the entire right upper quadrant abdomen and liver bed therefore lap was converted to open. 2 KENNETH drains. My leukocytosis. Hemoglobin 13.6 g. Preop EKG and nuclear stress test was negative. 02/20: Discussed with the surgeon. Patient is going to be discharged with KENNETH drain. Patient is risk factor for bile leak because of severe adhesions around the liver bed from the prior surgery. Chemistry shows TB 1.2, DB 0.39 slightly elevated from preop 1.0/0.29. Transaminases are normal. Alkaline phosphatase normal. Mild leukocytosis resolving. Patient did not had fever. Advised to continue incentive spirometry at home. Patient has follow-up with Dr. Alex on coming Tuesday, 02/24 Obstructive sleep apnea -Patient wears BiPAP at baseline at -Patient has pulm unit at the bedside -BiPAP continue BiPAP at at bedtime -Recommend BiPAP use immediate postoperatively as patient is coming out of anesthesia Elevated blood pressures: Blood pressure is 135/70 Continue to monitor -As needed hydralazine for systolic pressures greater than 160 Hyperglycemia -Blood sugar 137 on admitting labs -Globin A1c is 5.7 which is not consistent with diabetes however does appear to he has some insulin resistance Microscopic hematuria: UA shows 25-50 RBC cells per hpf. -Would recommend outpatient follow-up with repeat UA -If patient still has microscopic hematuria at that time I would recommend follow-up with urology DVT prophylaxis -Per primary Charges/Coding Visit Charges Inpatient E&M: 83184 Subs Hosp L2
--- NOTE | 2022-02-20 09:58 | PCM.PN.SRG ---
Subjective Subjective Patient feeling better, ready to go home, has ambulated in the hallways Tolerating diet Objective Data Objective Data Vital Signs: Vital Signs Temp Pulse Resp BP Pulse Ox 97.6 F L 66 20 H 138/68 H 95 02/20/22 03:40 02/20/22 03:40 02/20/22 03:40 02/20/22 03:40 02/20/22 03:40 Oxygen Flow Rate (L/min) 2 Oxygen Delivery Method Room Air Weight: 158.8 kg Body Mass Index (BMI) 50.2 Intake & Output: Intake and Output for Last 24 Hours 02/18/22 02/19/22 02/20/22 23:59 23:59 23:59 Intake Total 6033.34 / 6333.34 4736.67 / 5096.67 650 / 650 Output Total 80 / 225 205 / 245 40 / 40 Balance 5953.34 / 6108.34 4531.67 / 4851.67 610 / 610 Lab / Micro Data Result Diagrams: 02/19/22 06:01 02/19/22 06:01 Physical Exam Const alert, oriented x3 and no apparent distress Resp normal respiratory effort Effort and Inspection: able to speak in complete sentences GI GI Narrative: abdomen is soft and obese, dressing intact with some seepage, patient told to reinforce dressing as per needed Deeper drain may have bile output Assessment & Plan Assessment/Plan (1) Status post cholecystectomy: PLAN: Plan discharge to home, patient to follow up with me in the clinic on Tuesday
[2022-02-20 10:00] VITALS: BP 137/69; PULSE 67; RESP 18; TEMP 37; O2SAT 95
--- NOTE | 2022-02-20 10:01 | DCINST_ITS ---
Discharge Instructions Follow Up Care Test Results: Test results from this visit will be discussed in further detail at your follow-up appointment, if applicable. Discharge Plan Admission Admit Date/Time: 02/18/22 18:27 Attending Provider: Renetta Alex Primary Care Provider: Tri Choudhury Consulting Providers: Santino Gauthier Instructions Additional Instructions / Restrictions: Recommended pain control regimen - May take 600 mg ibuprofen (Motrin) and then in 3-4 hours, may take 650 mg acetaminophen (Tylenol), then in 3-4 hours may take 600 mg ibuprofen, then in 3- 4 hours may take 650 mg acetaminophen and so on for 2-3 days May take narcotic pain medication for pain that is not controlled by above and at night for comfort through the night Leave dressings in place Sponge bathe only No lifting/pushing/pulling greater than 20 pounds until further notice Regular diet as tolerated, drink plenty of fluids. Avoid carbonated beverages for a few days as this will cause abdominal bloating and thus discomfort after our surgery. Please call my office for an appointment time to see me on Tuesday, February 24 for consideration of drain removal. Office number is If any questions, please call my office at and ask the chemical process equipment operator for the general surgery nurses desk Discharge Orders/Prescriptions Prescriptions: New oxycodone 5 mg capsule 5 mg PO Q8H PRN (Reason: pain) 5 Days Qty: 15 RF: 0 Referrals / Follow Up: Tri Choudhury MD [Primary Care Provider] -
--- NOTE | 2022-02-20 10:01 | DS.PCM_ITS ---
Discharge Summary Date of Admission: 02/17/22 Date of Discharge: 02/20/22 Summary: Gustavo Burdick is a morbidly obese 61 y/o WM who presents with cholelithiasis with acute cholecystits and hydrops. He underwent attempted laparoscopic cholecystectomy on 02/18/2022, but because of his previous laparotomy for liver trauma and his body habitus, this precluded laparoscopic approach. Open cholecystectomy was done and drains placed intraoperatively. Patient not ambulating on POD#1 and needed additional day to rehabilitate to go home. He was discharged to home on POD#2. He may have a bile leak in one of the drainage catheters but this will be addressed as an outpatient. Meaningful Use Info Meaningful Use Diagnoses (Choose all that apply): None applicable Discharge Plan Admission Admit Date/Time: 02/18/22 18:27 Attending Provider: Renetta Alex Primary Care Provider: Tri Choudhury Consulting Providers: Santino Gauthier Instructions Additional Instructions / Restrictions: Recommended pain control regimen - May take 600 mg ibuprofen (Motrin) and then in 3-4 hours, may take 650 mg acetaminophen (Tylenol), then in 3-4 hours may take 600 mg ibuprofen, then in 3- 4 hours may take 650 mg acetaminophen and so on for 2-3 days May take narcotic pain medication for pain that is not controlled by above and at night for comfort through the night Leave dressings in place Sponge bathe only No lifting/pushing/pulling greater than 20 pounds until further notice Regular diet as tolerated, drink plenty of fluids. Avoid carbonated beverages for a few days as this will cause abdominal bloating and thus discomfort after our surgery. Please call my office for an appointment time to see me on Tuesday, February 24 for consideration of drain removal. Office number is If any questions, please call my office at and ask the mobile lounge driver or operator for the general surgery nurses desk Discharge Orders/Prescriptions Prescriptions: New oxycodone 5 mg capsule 5 mg PO Q8H PRN (Reason: pain) 5 Days Qty: 15 RF: 0 Referrals / Follow Up: Tri Choudhury MD [Primary Care Provider] -
[2022-02-20 10:38] LABS: AST(SGOT) 19 U/L (15-37); Alanine Aminotransfer ALT/SGPT 41 U/L (16-61); Albumin, Serum 2.6 g/dL (3.2-5.0); Alkaline Phosphatase 55 U/L (45-117); Bilirubin, Direct 0.39 mg/dL (0.00-0.30); Globulin 3.6 g/dL (2.2-4.2); Protein, Total 6.2 g/dL (6.4-8.2)
== END 2022-02-20 11:46 | disposition home or self-care (01) | DRG 415 ==
LOC: ED 12:56 → PCU 13:49
PROVIDERS: Anesthesiology; Internal Medicine; Admitting Provider Surgery; Emergency Provider Emergency Medicine; PCP Family Medicine; Visit Provider Surgery
PROC: 0FT40ZZ Resection of Gallbladder, Open Approach (ICD-10-PCS; CPT 47610; principal; 2022-02-18 15:10)
DX: K80.12 Calculus of gallbladder with acute and chronic cholecystitis without obstruction (principal); Z68.42 Body mass index [BMI] 45.0-49.9, adult; K82.1 Hydrops of gallbladder; E66.01 Morbid (severe) obesity due to excess calories; G47.33 Obstructive sleep apnea (adult) (pediatric); R31.29 Other microscopic hematuria; R03.0 Elevated blood-pressure reading, without diagnosis of hypertension; R73.9 Hyperglycemia, unspecified; Z53.31 Laparoscopic surgical procedure converted to open procedure; K66.0 Peritoneal adhesions (postprocedural) (postinfection)
CPT/HCPCS: 36415; 74177; 76705; 80048; 80076; 81001; 83036; 83605; 83690; 85025; 88304; 93005; 97161; 97165; 99251; 99285; J7030; J7120; Q9967; A4216; G0463; J2405

== ENCOUNTER → 2022-02-27 | Outpatient (CLI) | payer OTHER, SELFPAY ==
--- NOTE | 2022-02-27 07:48 | US_ITS ---
EXAM: US RETROPERITONEAL COMPLETE, RENAL CLINICAL INDICATION: LEFT RENAL CYST---abn ct TECHNIQUE: Grayscale and color Doppler sonographic evaluation of the retroperitoneum was performed. This report was created using PPI report generation technology. COMPARISON: CT 02/17/2022 FINDINGS: RIGHT KIDNEY: Right kidney measures 12.7 x 6.0 x 6.0 cm. 2.3 cm simple right renal cyst with well-defined margins and posterior acoustic enhancement compatible with a simple cyst. No required imaging follow-up needed given high likelihood of benign nature. LEFT KIDNEY: Left kidney measures 12.0 x 4.0 x 4.5 cm. No hydronephrosis. No shadowing calculus. No perinephric collection is demonstrated. Horseshoe kidney identified, although better seen on prior CT. Urinary bladder: No bladder wall thickening. US/Kidney and Bladder IMPRESSION: 1. Simple right renal cyst. No required imaging follow-up needed given high likelihood of benign nature. 2. Horseshoe kidney. Electronically Signed: Ld Tapia MD (Brooks) at 19:09 EDT ,
== END | disposition home or self-care (01) ==
LOC: US 07:46
PROVIDERS: PCP Family Medicine; Referring Provider Family Medicine; Visit Provider Family Medicine
DX: N28.89 Other specified disorders of kidney and ureter (principal)
CPT/HCPCS: 76770

== ENCOUNTER 2022-03-12 09:34 | Day surgery (SDC) | payer OTHER, SELFPAY ==
--- NOTE | 2022-03-12 10:00 | EKG12_ITS ---
Test Reason : PREOP Blood Pressure : / mmHG Vent. Rate : 061 BPM Atrial Rate : 061 BPM P-R Int : 154 ms QRS Dur : 110 ms QT Int : 410 ms P-R-T Axes : 024 000 056 degrees QTc Int : 412 ms Normal sinus rhythm Normal ECG Confirmed by LEI ARNDT, STACIE ([id number]), editor in chief SPENCER MANUEL ([id number]) on 03/18/2022 9:18:23 AM Referred By: Tri Choudhury Confirmed By:STACIE ODOM MD
[2022-03-12 10:02] VITALS: BP 141/61; PULSE 62; RESP 16; TEMP 37.1; O2SAT 97; BMI 49.9
[2022-03-12] MEDS: Lactated Ringers 1,000 ML 15 ML IV (10:14)
--- NOTE | 2022-03-12 10:43 | PCM.HP.BLA ---
History and Physical Date of Admission: 03/12/22 Intake Vital Signs ? 02/20/2212:56 03/08/2213:55 Height 5 ft 10 in 5 ft 10 in Weight: ? 345 lb BMI ? 49.5 BP ? 147/78 H Blood Pressure Location ? Rt brachial Position ? Sitting Respiration ? 18 Pulse ? 77 Pulse Source ? Monitor Temp ? 98.0 F Temp Source ? Temporal Pulse Oximetry (%) ? 95 Oxygen Delivery Method ? room air Intake Visit Reasons:?Abnormal Billary Chief Complaint: abd pain Newspaper Carrier Required: No Accompanied by: Allergies No Known Allergies Allergy (Verified 03/08/22 13:56) Medications oxycodone 5 mg capsule 5 mg PO Q8H PRN pain 5 days #15 caps 02/19/22 [Rx Confirmed 03/08/22] aspirin 81 mg tablet,delayed release (Adult Aspirin Regimen) 81 mg PO DAILY 03/08/22 [History Confirmed 03/08/22] PFSH Medical History? Acute cholecystitis BiPAP (biphasic positive airway pressure) dependence Morbid obesity Non-smoker ABDULKADIR (obstructive sleep apnea) Surgical History?(Updated 02/19/22 @ 07:[address] Renetta Alex MD) Status post cholecystectomy Family History?(Updated 03/08/22 @ 13:59 by Nisha Angeles) Mother Asthma DiabetesFather Colon cancerSister Cancer ?? ? Liver cancerBrother Diabetes Social History?(Updated 03/08/22 @ 13:55 by Nisha Angeles) Smoking Status:? Never smoker alcohol intake:? never HPI HPI HPI: WOOD CERDA, is a 61 M who presents to the office today for bile leak.? The patient had open cholecystectomy about 2 weeks ago and his drain started having bilious output.? He was sent for HIDA scan and this confirmed bile leak. ROS General General: Yes fatigue; No weight change, appetite, colon cancer, breast cancer or weakness HEENT HEENT: No difficulty swallowing, eye injury, eye surgery, swollen glands or hoarseness Endo Endocrine: No thyroid disease, diabetes mellitus, thyroid cancer, Hair loss, heat intolerance or cold intolerance Skin Skin: No rash or changing moles Breast Breast: No left breast lump, right breast lump, nipple discharge, breast pain, abnormal mammogram, abnormal US or breast enlargement Musc Musculoskeletal: Yes arthritis; No back problems, rheumatoid arthritis, gout or joint pain Cardio Cardiovascular: No murmur, pacemaker, heart disease, atrial fibrillation, high blood pressure, heart attack, heart stent, palpitations, shortness of breat with exertion or chest pain Psych Psychiatric: No depression, anxiety or hearing voices Resp Respiratory: No shortness of breath, No sleep apnea, No cough, No COPD, No asthma, No emphysema and No wheezing Gastro Gastrointestinal: No abdominal pain, No nausea or vomiting, No diarrhea, No constipation, No blood in stool, No acid reflux, No hemorrhoids, No ulcers, Yes gallbladder problem and No black,tarry stools Alec Hematologic: No blood thinners, No blood disorders, No bleeding, No anemia and No blood clots Neuro Neurologic: No system reviewed and no additional complaints, except as documented, No as per HPI, No abnormal gait, No abnormal hearing, No abnormal movements, No abnormal speech, No behavioral changes, No burning sensations, No confusion, No convulsions, No disequilibrium, No dizziness, No localized weakness, No frequent falls, No headache(s), No lack of coordination, No loss of vision, No memory loss, No numbness, No other visual disturbances, No radicular pain, No restless legs, No sensory deficit, No syncope, No tingling, No tremor(s), No weakness and No other Exam Const General: cooperative Orientation: alert and oriented x3 HENMT Head: normal to inspection Neck Neck: normal visual inspection and full ROM Chest Chest palpation & inspection: normal inspection of the chest Resp Effort & Inspection: normal respiratory effort Auscultation: clear to auscultation bilaterally Cardio Rate: regular rate Rhythm: regular rhythm GI Inspection: non-distended Palpation: soft and nontender Other: Patient has a healing surgical incision.? KENNETH in place with bilious drainage. Skin General: no rashes or lesions noted Neuro General: patient alert and patient oriented x3 Extrem General: full ROM Psych Appearance: grossly normal Mental Status: mental status grossly normal Assessment and Plan Assessment and Plan (1) Bile leak: (2) Bile leak, postoperative: ?Status:?Acute ?Plan: Patient has postoperative bile leak after open cholecystectomy.? I discussed ERCP with stent placement.? I discussed the procedure in detail as well as the risks including not limited to bleeding, infection, perforation of the bile duct or bowel, pancreatitis.? I discussed stent placement.? I also discussed the necessity for stent removal in 8 to 12 weeks.? Patient's questions were answered and the patient will proceed with ERCP and stent. Pankaj Leung MD Pager: [facility] [address] [place] [address], [address] [place] [phone] Office: I have re-examined the patient. There are no clinical changes since date of exam.
--- NOTE | 2022-03-12 11:17 | RAD_ITS ---
STUDY: ERCP REASON FOR EXAM: Male, 61 years old. ERCP WITH STENT PLACEMENT FLUOROSCOPY TIME (if supplied): ( 63.5 seconds ) minutes/seconds. 3 images were submitted. TECHNIQUE: An ERCP was performed by the surgeon. Imaging was provided. COMPARISON: None. FINDINGS: Imaging provided for biliary stent placement. RAD/ERCP Biliary Only IMPRESSION: Imaging provided for biliary stent placement. Electronically Signed: Sonny Padron MD at 12:19 EDT ,
[2022-03-12] MEDS: Cefotetan 2 GM in 0.9% NS 100 ML IV (11:21)
--- NOTE | 2022-03-12 12:00 | OP.ERCP_ITS ---
Patient Name: Gustavo Burdick Procedure Date: 03/12/2022 11:13 AM Date of : 1960 Age: 61 Procedure: ERCP Indications: Bile leak Providers: Pankaj Leung MD Medicines: General Anesthesia Patient Profile: This is a 61 year old male. Refer to note in patient chart for documentation of history and physical. Complications: No immediate complications. Estimated blood loss: Minimal. Procedure: Pre-Anesthesia Assessment: - Prior to the procedure, a History and Physical was performed, and patient medications and allergies were reviewed. The patient's tolerance of previous anesthesia was also reviewed. The risks and benefits of the procedure and the sedation options and risks were discussed with the patient. All questions were answered, and informed consent was obtained. Prior Anticoagulants: The patient has taken no previous anticoagulant or antiplatelet agents. After reviewing the risks and benefits, the patient was deemed in satisfactory condition to undergo the procedure. After obtaining informed consent, the scope was passed under direct vision. Throughout the procedure, the patient's blood pressure, pulse, and oxygen saturations were monitored continuously. The duodenoscope was introduced through the mouth, and advanced to the duodenum and used to inject contrast into the bile duct. The ERCP was accomplished without difficulty. The patient tolerated the procedure well. Scope In: 11:40:35 AM Scope Out: 11:53:18 AM Total Procedure Duration Time 0 hours 12 minutes 43 seconds Findings: A 0.035 inch x 260 cm straight Dreamwire was passed into the biliary tree. The sphincterotome was passed over the guidewire and the bile duct was then deeply cannulated. Contrast was injected. Biliary sphincterotomy was made with a monofilament sphincterotome using ERBE electrocautery. There was no post-sphincterotomy bleeding. One 10 Fr by 5 cm plastic stent with a single external flap and a single internal flap was placed into the common bile duct. Bile flowed through the stent. The stent was in good position. The endoscope was withdrawn from the patient. Impression: - A biliary sphincterotomy was performed. - One plastic stent was placed into the common bile duct. Recommendation: - Discharge patient to home. - Resume previous diet. - Return to endoscopist for stent removal at ERCP in 8 weeks. Procedure Code(s): --- Professional --- 78607, Endoscopic retrograde cholangiopancreatography (ERCP); with placement of endoscopic stent into biliary or pancreatic duct, including pre- and post-dilation and guide wire passage, when performed, including sphincterotomy, when performed, each stent Diagnosis Code(s): --- Professional --- K83.8, Other specified diseases of biliary tract CPT copyright 2017 [employer]. All rights reserved. The codes documented in this report are preliminary and upon field machinist review may be revised to meet current compliance requirements. Pankaj Leung MD 03/12/2022 12:00:09 PM This report has been signed electronically. Number of Addenda: 0 Note Initiated On: 03/12/2022 11:13 AM
--- NOTE | 2022-03-12 12:01 | OP.CCLET_ITS ---
03/12/2022 Tri Choudhury [facility] [address] [address] Re : ERCP procedure for Gustavo Burdick Dear Dr. Choudhury This procedure was performed on Saturday, March 12, 2022. My impressions and recommendations are as follows: Impressions : - A biliary sphincterotomy was performed. - One plastic stent was placed into the common bile duct. Recommendations : - Discharge patient to home. - Resume previous diet. - Return to endoscopist for stent removal at ERCP in 8 weeks. My findings are described in the full procedure note, which is enclosed. If I can be of further assistance, please feel free to contact me at Doctor phone number(s): , Work: . Sincerely, Pankaj Leung MD 03/12/2022 12:00:09 PM This report has been signed electronically.
[2022-03-12 12:09] VITALS: BP 124/77; BP 141/61; PULSE 65; RESP 20; TEMP 36.2; O2SAT 94
[2022-03-12 12:15] VITALS: BP 113/52; BP 141/61; PULSE 61; RESP 18; O2SAT 94
[2022-03-12 12:29] VITALS: BP 137/75; BP 141/61; PULSE 59; RESP 20; TEMP 36.2; O2SAT 96
[2022-03-12 13:16] VITALS: BP 132/70; BP 141/61; PULSE 78; RESP 16; TEMP 36.6; O2SAT 98
== END 2022-03-12 13:20 | disposition home or self-care (01) ==
LOC: EN 09:35 → AC 09:43
PROVIDERS: PCP Family Medicine; Referring Provider Family Medicine; Visit Provider Surgery
PROC: (CPT 43260; principal; 2022-03-12 10:25)
DX: K91.89 Other postprocedural complications and disorders of digestive system (principal); E66.01 Morbid (severe) obesity due to excess calories; Z68.42 Body mass index [BMI] 45.0-49.9, adult; G47.33 Obstructive sleep apnea (adult) (pediatric); Z90.49 Acquired absence of other specified parts of digestive tract; K83.8 Other specified diseases of biliary tract
CPT/HCPCS: 43274; 74328; 76000; 93005; J7120; J2405

== ENCOUNTER 2022-03-12 20:29 | Inpatient (IN) | payer OTHER, SELFPAY ==
[2022-03-12 20:30] VITALS: BP 178/87; PULSE 67; RESP 15; TEMP 37; O2SAT 99; BMI 49.9
--- NOTE | 2022-03-12 22:08 | CT_ITS ---
STUDY: CT ABDOMEN AND PELVIS WITH CONTRAST OF 2307 HOURS ON 03/12/2022 REASON FOR EXAM: 61-year-old male with post-operative pain. RADIATION DOSAGE (If Supplied By Facility): CTDIvol = ( 40.91 ) mGy, DLP = ( 2033.71 ) mGycm TECHNIQUE: Transaxial images were obtained from the dome of the diaphragm to the symphysis pubis without oral contrast. IV 100mL [id number]-[id number] was administered. Sagittal and coronal images were reconstructed. Individualized dose optimization techniques were used for this CT. COMPARISON: 02/17/2022, which demonstrated cholelithiasis and cholecystitis, fatty infiltration of the liver, a left adrenal mass, a right renal cyst, diverticulosis, and a small hiatal hernia. FINDINGS: The visualized lung bases are unremarkable. The visualized portions of the heart are within normal limits. There is mild fatty infiltration of the liver. The gallbladder has been surgically removed since 02/17/2022.. There is a right anterior-lateral abdominal drain to the gallbladder region. There is evidence of a mild degree of hemorrhage (approximately 45 mL) in the region of the gallbladder fossa and medially to and surrounding the head of the pancreas and adjacent duodenum. There is no current evidence of an abscess. The spleen is normal.. There is a normal-sized pancreas without evidence of pancreatitis or pancreatic mass lesions. This radiologist does not see a left adrenal mass, as was stated in the previous study of 02/17/2022. This may been simulated by an abnormal oblique projection of the left adrenal gland Again, there is a probable 1.7 cm diameter cyst in the posterior central mid aspect of the right portion of the patient''s horseshoe kidney. Normal visualized stomach. Normal small intestine. Mild colonic diverticulosis is present. There is no diverticulitis, colitis, intestinal obstruction. The appendix is visualized and appears normal; no evidence of appendicitis.. Normal abdominal aorta. Normal inferior vena cava. Normal retroperitoneum. There is no evidence of free fluid or free air within the peritoneal cavity. There is no evidence of abscesses within the peritoneal cavity. Normal urinary bladder. Normal abdominal wall. There is no evidence for lumbar vertebral body fractures or subluxations. There are vacuum phenomenon in the L4-5 and L5-S1 intervertebral disc spaces. There is normal pelvis and hips. CT/Abdomen/Pelvis W IV Cont ONLY IMPRESSION: 1. Recent cholecystectomy with a drainage tube from the anterior lateral aspect of the adjacent abdominal wall to the gallbladder region. 2. Evidence of mild amount of hemorrhage at the cholecystectomy site in the region of the bharat hepatis, approximately 45 mL.. 3. No current evidence of either bharat hepatis or abdominal abscess. 4. Mildly fatty infiltration of the liver. 5. Normal pancreas without pancreatitis or pancreatic mass lesions. 6. No evidence of an adrenal mass and the study. It may have been stimulated by the oblique position of the left adrenal gland. 7. 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 8. No appendicitis, diverticulitis, colitis, or intestinal obstruction. Mild colonic diverticulosis is present. 9. No evidence of other significant abnormalities. Electronically Signed: Rubens West MD at 0:07 EDT ,
[2022-03-12 22:38] LABS: Absolute Lymphocyte Count 1.15 X10^3/uL (0.83-4.51); Absolute Neutrophil Count 5.4 X10^3/uL (2.0-7.7); Hematocrit 44.5 % (40-54); Hemoglobin 15.8 g/dL (13.0-16.5); Lymphocyte # 1.15 X10^3/ul (0.83-4.51); Lymphocyte % 16.7 % (19-41); Mean Corp Hgb Conc 35.5 g/dL (32-36); Mean Corpuscular Hgb 30.9 pg (27.0-32.0); Mean Corpuscular Volume 87.1 fL (80-94); Mean Platelet Vol. 8.7 fl (6.2-12.0); Monocyte# 0.36 X10^3/uL; Monocyte% 5.2 % (0-10); NRBC Flagged by Analyzer 0 % (0-5); Neutrophil # 5.37 X10^3/uL (2.7-7.7); Neutrophil % 77.8 % (47-70); Platelet Count 290 K/mm3 (150-450); RBC Distribution Width CV 12.4 % (11.6-14.6); RBC Distribution Width SD 39.7 fl (35.1-43.9); Red Blood Count 5.11 M/mm3 (4.6-6.2); White Blood Count 6.9 K/mm3 (4.4-11.0)
[2022-03-12] MEDS: HYDROmorphone 1 MG/ML Syringe IV ×2 (22:49→23:53)
[2022-03-12] MEDS: 0.9% Normal Saline 1,000 ML 999 ML IV (22:49)
[2022-03-12] MEDS: Ondansetron 4 MG/2 ML Vial IV (22:49)
[2022-03-12 22:55] LABS: AST(SGOT) 26 U/L (15-37); Alanine Aminotransfer ALT/SGPT 46 U/L (16-61); Albumin, Serum 3.2 g/dL (3.2-5.0); Alkaline Phosphatase 87 U/L (45-117); Anion Gap 7 (5-15); BUN 18 mg/dL (7-18); BUN/Creat Ratio 16.5 RATIO (10-20); Bilirubin, Direct 0.29 mg/dL (0.00-0.30); Calcium,Total 9.1 mg/dL (8.5-10.1); Chloride 105 mmol/L (98-107); Creatinine, Serum 1.09 mg/dL (0.70-1.30); EST Glomerular Filtration Rate 73 mL/min (>60); Est Glom Filt Rate - Afr Amer 88 mL/min (>60); Estimated Creatinine Clearance 73.48 ml/min; Glucose 225 mg/dL (74-106); Lipase 12568 U/L (73-393); Potassium 4.4 mmol/L (3.5-5.1); Protein, Total 7.2 g/dL (6.4-8.2); Sodium Level 136 mmol/L (136-145)
--- NOTE | 2022-03-12 22:58 | EX.ED.DYSGE1 ---
HPI History of Present Illness Chief Complaint: Abd Pain Narrative Narrative: Patient is a 61-year-old male who had his gallbladder removed 3 weeks ago and had drains placed. He underwent an ERCP with stent placement today on an outpatient basis. He states he returned home roughly around 1 PM and then started around 430 he noticed pain mainly in the mid to right upper abdomen. He states he tried [id number]-tlrwskn medications but there has been no symptom improvment. Patient states that there has been nausea without vomiting and he reports constipation and states he is also not passed gas today. With the persistent pain he is concerned that there is something wrong with the recent procedure and therefore comes in for evaluation [facility] Medical History Acute cholecystitis Arthritis BiPAP (biphasic positive airway pressure) dependence Chronic knee pain History of stress test Morbid obesity Non-smoker ABDULKADIR (obstructive sleep apnea) Shortness of breath on exertion Home Medications aspirin 81 mg tablet,delayed release (Adult Aspirin Regimen) 81 mg PO DAILY 03/08/22 [History Last Taken 03/11/22] magnesium 250 mg tablet 250 mg PO DAILY 03/09/22 [History Last Taken Unknown] omega 0-vnn-pjf-fish oil 300 mg-1,000 mg capsule (Fish Oil) 1 cap PO DAILY 03/09/22 [History Last Taken Unknown] Allergy/AdvReac Type Severity Reaction Status Date / Time No Known Allergies Allergy Verified 03/12/22 20:30 Family History (Updated 03/08/22 @ 13:59 by Nisha Angeles) Mother Asthma Diabetes Father Colon cancer Sister Cancer Liver cancer Brother Diabetes Surgical History History of surgery of liver Status post cholecystectomy Social History (Updated 03/08/22 @ 13:55 by Nisha Angeles) Smoking Status: Never smoker alcohol intake: never ROS ROS ED Constitutional Constitutional ED: Denies chills or fever(s) ENT ENT ED: Denies sore throat Cardiovascular Cardiovascular: Denies chest pain Respiratory/Chest Respiratory/Chest: Denies cough or dyspnea Gastrointestinal Gastrointestinal: Reports abdominal pain, constipation and nausea; Denies diarrhea or vomiting Genitourinary Genitourinary ED: Denies dysuria or hematuria Musculoskeletal Musculoskeletal: Denies myalgias Integumentary Denies rash Neurologic Neurologic: Denies headache(s) Hematologic/Lymphatic Hematologic/Lymphatic: Denies easy bleeding or easy bruising EXAM Physical Exam Const Vital Signs: 03/12/22 20:30 03/13/22 00:49 Temperature 98.6 F 97.4 F L Temperature Source Temporal Temporal Pulse Rate 67 791 H Respiratory Rate 15 16 Blood Pressure 178/87 H 136/74 H Blood Pressure Mean 117 94 Pulse Ox 99 99 Oxygen Delivery Method Room Air Room Air Positive well nourished and well developed General Appearance ED: well developed HEENT Reports moist mucous membranes Eyes PERRL and EOMs intact bilaterally General Eye ED: Negative for scleral icterus Neck supple Neck Narrative: No crepitance noted Chest Wall palpation of chest normal Resp normal respiratory effort and clear to auscultation bilaterally Cardio regular rate and regular rhythm Rate: other Other Details: Radial pulses are plus 2 out of 4 bilaterally are equal and symmetric GI GI Narrative: Abdomen is obese soft and nondistended. There is pain with palpation in the right upper to mid abdomen with slight guarding at the site. The patient's cholecystectomy tube is draining yellow fluid and appears to be in place. The surgical wound is clean dry and intact without signs of infection. Bowel sounds are hypoactive. No increased tympany Extremity normal to inspection Neuro oriented x3 and CN's II-XII intact bilaterally Sensorium / Orientation: alert Psych mental status grossly normal Skin no rashes or lesions noted Skin Narrative: No jaundice noted MDM MDM MDM Narrative Medical decision making narrative: Patient presented to the ER slightly hypertensive but afebrile. There is no obvious signs of secondary infection from his recent procedures. However with the ERCP performed today and pain in the right upper quadrant and midepigastric region he could have developed a complication of pancreatitis or possible obstruction. Basic labs were obtained and show a lipase of 12,568. CT scan was obtained which reveals some blood around the right upper quadrant without active hemorrhage or signs of infection. The pancreas did not show any inflammation on CT scan but based on his location of pain and a severely elevated lipase he does qualify for acute pancreatitis. The case was discussed with general surgery on-call and they do agree to accept the patient at this time based on his recent procedure pain and elevated lipase. Lab Data Attestation: I reviewed the patient's lab results. Labs: Laboratory Results - last 24 hr 03/12/22 03/12/22 03/12/22 22:25 22:25 22:25 WBC 6.9 RBC 5.11 Hgb 15.8 Hct 44.5 MCV 87.1 MCH 30.9 MCHC 35.5 RDW Std Deviation 39.7 RDW Coeff of Reshma 12.4 Plt Count 290 MPV 8.7 Immature Gran % (Auto) 0.300 Neut % (Auto) 77.8 H Lymph % (Auto) 16.7 L Gem % (Auto) 5.2 Eos % (Auto) 0.0 Baso % (Auto) 0.0 Absolute Neuts (auto) 5.4 Absolute Lymphs (auto) 1.15 Nucleated RBC % 0 Sodium 136 Potassium 4.4 Chloride 105 Carbon Dioxide 24.0 Anion Gap 7 BUN 18 Creatinine 1.09 Estim Creat Clear Calc 73.48 Est GFR (MDRD) Af Amer 88 Est GFR (MDRD) Non-Af 73 BUN/Creatinine Ratio 16.5 Glucose 225 H Lactic Acid 2.1 H* Calcium 9.1 Total Bilirubin 0.80 Direct Bilirubin 0.29 AST 26 ALT 46 Alkaline Phosphatase 87 Total Protein 7.2 Albumin 3.2 Globulin 4.0 Lipase 38260 H Radiography Diagnostic Testing: Clinical Impression(s) from Imaging Studies Abdomen/Pelvis CT 03/12/22 22:08 IMPRESSION: 1. Recent cholecystectomy with a drainage tube from the anterior lateral aspect of the adjacent abdominal wall to the gallbladder region. 2. Evidence of mild amount of hemorrhage at the cholecystectomy site in the region of the bharat hepatis, approximately 45 mL.. 3. No current evidence of either bharat hepatis or abdominal abscess. 4. Mildly fatty infiltration of the liver. 5. Normal pancreas without pancreatitis or pancreatic mass lesions. 6. No evidence of an adrenal mass and the study. It may have been stimulated by the oblique position of the left adrenal gland. 7. 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 8. No appendicitis, diverticulitis, colitis, or intestinal obstruction. Mild colonic diverticulosis is present. 9. No evidence of other significant abnormalities. Electronically Signed: Rubens West MD at 0:07 EDT , Discharge Plan Triage Chief Complaint: Abd Pain ED Provider: Roberto Beasley Dx/Rx/DC Orders Clinical Impression: Acute pancreatitis Prescriptions: No Action aspirin [Adult Aspirin Regimen] 81 mg tablet,delayed release (DR/EC) 81 mg PO DAILY magnesium 250 mg Tablet 250 mg PO DAILY omega 2-hje-mcm-fish oil [Fish Oil] 300-1,000 mg Capsule 1 cap PO DAILY Primary Care Provider: Tri Choudhury Referrals: Tri Choudhury MD [Primary Care Provider] - Disposition Disposition: Acute Care Hospital [facility]
[2022-03-12 23:03] LABS: Lactic Acid 2.1 mmol/L (0.4-1.9)
[2022-03-13] VITALS (7 sets, daily range): BP systolic 118–149; BP diastolic 50–80; PULSE 50–791; RESP 16–20; TEMP 36.3–37; O2SAT 92–99; BMI 50.2
[2022-03-13] MEDS: Lactated Ringers 1,000 ML 125 ML IV ×2 (02:07→10:31)
[2022-03-13] MEDS: HYDROmorphone 1 MG/ML Syringe IV ×5 (02:07→13:34)
[2022-03-13] MEDS: 0.9% Saline Lock 10 ML Syringe IV ×4 (02:08→21:42)
[2022-03-13 02:30] LABS: Reflex Lactate? Y
[2022-03-13 04:32] LABS: Lactic Acid 1.3 mmol/L (0.4-1.9)
[2022-03-13 05:00] LABS: Lipase 8161 U/L (73-393)
--- NOTE | 2022-03-13 11:26 | HP.PCM_ITS ---
History and Physical Date of Admission: 03/13/22 admitted for pancreatitis Patient is s/p ERCP done on March 12, 2022 This is for controlled bile leak s/p open cholecystectomy done on 02/18/2022 Presented to [facility] ED and found to have elevated lipase Medications oxycodone 5 mg capsule 5 mg PO Q8H PRN pain 5 days #15 caps 02/19/22 [Rx Confirmed 03/08/22] aspirin 81 mg tablet,delayed release (Adult Aspirin Regimen) 81 mg PO DAILY 03/08/22 [History Confirmed 03/08/22] PMH Acute cholecystitis BiPAP (biphasic positive airway pressure) dependence Morbid obesity Non-smoker ABDULKADIR (obstructive sleep apnea) PSH: Status post cholecystectomy Family History (Updated 03/08/22 @ 13:59 by Nisha Angeles) Mother Asthma DiabetesFather Colon cancerSister Cancer Liver cancerBrother Diabetes Social History (Updated 03/08/22 @ 13:55 by Nisha Angeles) Smoking Status: Never smoker alcohol intake: never ROS General General: Yes fatigue; No weight change, appetite, colon cancer, breast cancer or weakness HEENT HEENT: No difficulty swallowing, eye injury, eye surgery, swollen glands or hoarseness Endo Endocrine: No thyroid disease, diabetes mellitus, thyroid cancer, Hair loss, heat intolerance or cold intolerance Skin Skin: No rash or changing moles Breast Breast: No left breast lump, right breast lump, nipple discharge, breast pain, abnormal mammogram, abnormal US or breast enlargement Musc Musculoskeletal: Yes arthritis; No back problems, rheumatoid arthritis, gout or joint pain Cardio Cardiovascular: No murmur, pacemaker, heart disease, atrial fibrillation, high blood pressure, heart attack, heart stent, palpitations, shortness of breat with exertion or chest pain Psych Psychiatric: No depression, anxiety or hearing voices Resp Respiratory: No shortness of breath, No sleep apnea, No cough, No COPD, No asthma, No emphysema and No wheezing Gastro Gastrointestinal: No abdominal pain, No nausea or vomiting, No diarrhea, No constipation, No blood in stool, No acid reflux, No hemorrhoids, No ulcers, Yes gallbladder problem and No black,tarry stools Alec Hematologic: No blood thinners, No blood disorders, No bleeding, No anemia and No blood clots Neuro Neurologic: No system reviewed and no additional complaints, except as documented, No as per HPI, No abnormal gait, No abnormal hearing, No abnormal movements, No abnormal speech, No behavioral changes, No burning sensations, No confusion, No convulsions, No disequilibrium, No dizziness, No localized weakness, No frequent falls, No headache(s), No lack of coordination, No loss of vision, No memory loss, No numbness, No other visual disturbances, No radicular pain, No restless legs, No sensory deficit, No syncope, No tingling, No tremor(s), No weakness and No other Exam Const General: cooperative Orientation: alert and oriented x3 HENMT Head: normal to inspection Neck Neck: normal visual inspection and full ROM Chest Chest palpation & inspection: normal inspection of the chest Resp Effort & Inspection: normal respiratory effort Auscultation: clear to auscultation bilaterally Cardio Rate: regular rate Rhythm: regular rhythm GI Inspection: non-distended Palpation: soft and nontender Other: Patient has a healing surgical incision. KENNETH in place with bilious drainage. Skin General: no rashes or lesions noted Neuro General: patient alert and patient oriented x3 Extrem General: full ROM Psych Appearance: grossly normal Mental Status: mental status grossly normal Impression: s/p ERCP with acute pancreatitis Plan: supportive care with IV hydration and pain medications Assessment & Plan Assessment/Plan (1) Acute pancreatitis: PLAN: Plan see above
--- NOTE | 2022-03-13 11:55 | CASEMGMT ---
HANNAH MIGUEL assessment: Face to Face with patient for initial transition planning/care coordination assessment. HANNAH MIGUEL introduced self and role at [facility], pt voices understanding and consents to assessment. Pt is sitting up in bed in no distress on room air. Pt is A/Ox4 and answers all questions appropriately.? Pt's is at bedside during assessment. Care providers, pharmacy,?and demographics verified. ? Presentation: Pt w/ ERCP this am and now having abd pain Admitting dx: Acute pancreatitis PCP: Macey Specialists: Xochitl, surgeon; sean Matta; Preferred Pharmacy: [facility] Insurance: MMO Prescription Benefit:?MMO Living Will/HPOA: Pt does have LW/HPOA and is aware that they are not on file at [facility]. Pt state , Kiesha Burdick, is HPOA. LNOK: Keisha Burdick, Living Arrangements: Pt lives with in split level home and states no concerns at home. Pt is independent with ADL's. Transportation: Pt drives self and states no transportation concerns. DME/HHC: Pt has the following DME: cane, walker, BSC, and bipap. Pt states no need for any further DME. Pt states no hx of HHC or SNF in past. Pt states no concerns with going home at time of discharge. 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 Pt states does not smoke cigarettes or drink ETOH. Pt states no further concerns/needs. CM to follow for any further discharge planning/needs. Advised pt to ask for CM if any further questions/concerns/needs arise, voices understanding. Pt Goal: ? Home Plan[place] HANNAH IMGUEL
[2022-03-13 13:28] LABS: Lipase 4616 U/L (73-393)
--- NOTE | 2022-03-13 14:10 | NURSING ---
Cefotan given at this time RX just delivered medication.
[2022-03-13] MEDS: HYDROmorphone 1 MG/ML Syringe 1.5 MG IV ×2 (15:35→19:51)
[2022-03-13] MEDS: Ketorolac 15 MG/ML Vial IV ×2 (16:39→21:42)
[2022-03-13] MEDS: Lactated Ringers 1,000 ML 175 ML IV ×2 (18:07→21:44)
[2022-03-14] MEDS: HYDROmorphone 1 MG/ML Syringe 1.5 MG IV ×3 (00:55→19:19)
[2022-03-14] MEDS: 0.9% Saline Lock 10 ML Syringe IV ×2 (00:55→05:40)
[2022-03-14] MEDS: Lactated Ringers 1,000 ML 175 ML IV ×4 (03:13→21:01)
[2022-03-14 03:39] VITALS: BP 136/71; PULSE 72; RESP 18; TEMP 36.5; O2SAT 94
[2022-03-14] MEDS: Ketorolac 15 MG/ML Vial IV ×3 (05:41→21:02)
[2022-03-14 06:24] LABS: Lipase 1507 U/L (73-393)
[2022-03-14 08:32] VITALS: BP 139/61; PULSE 78; RESP 18; TEMP 36.6; O2SAT 96
--- NOTE | 2022-03-14 08:47 | CPS ---
Pt brought his own PAP machine to use @.
[2022-03-14 11:26] VITALS: BP 151/78; PULSE 81; RESP 16; TEMP 37.1; O2SAT 96
--- NOTE | 2022-03-14 11:27 | PCM.PN.SRG ---
Subjective Subjective decreasing abdominal pain feels bloated passing flatus has not ambulated yet Objective Data Objective Data Vital Signs: Vital Signs Temp Pulse Resp BP Pulse Ox O2 Del Method 98.8 F 81 16 151/78 H 96 Room Air 03/14/22 11:26 03/14/22 11:26 03/14/22 11:26 03/14/22 11:26 03/14/22 11:26 03/14/22 11:26 Oxygen Delivery Method Room Air Weight: 158.9 kg Body Mass Index (BMI) 50.2 Intake & Output: Intake and Output for Last 24 Hours 03/12/22 03/13/22 03/14/22 23:59 23:59 23:59 Intake Total 4032.92 / 4032.92 2516.66 / 2516.66 Output Total 480 / 480 135 / 135 Balance 3552.92 / 3552.92 2381.66 / 2381.66 Lab / Micro Data Attestation: I reviewed the patient's lab results. Result Diagrams: 03/12/22 22:25 03/12/22 22:25 Labs: Laboratory Results - last 24 hr 03/13/22 12:55: Lipase 4616 H 03/14/22 05:29: Lipase 1507 H Physical Exam Const alert and oriented x3 General Appearance: cooperative Resp normal respiratory effort Effort and Inspection: able to speak in complete sentences GI GI Narrative: abdomen is morbidly obese, soft and benign KENNETH output is bile colored - decreasing amount overall Assessment & Plan Assessment/Plan (1) Acute pancreatitis: PLAN: Pancreatitis is resolving based upon laboratory results and clinical improvement I have encouraged patient to ambulate Continue biliary drain - not ready to d/c yet
[2022-03-14] MEDS: Acetaminophen 325 MG Tablet PO (14:37)
[2022-03-14] MEDS: oxyCODONE 5 MG Tablet PO (14:37)
[2022-03-14 14:58] VITALS: BP 155/79; PULSE 86; RESP 16; TEMP 37.5; O2SAT 94
[2022-03-14 20:11] VITALS: BP 144/69; PULSE 85; RESP 18; TEMP 37; O2SAT 92
[2022-03-15 01:51] VITALS: BP 182/64; PULSE 98; RESP 20; TEMP 37; O2SAT 93
[2022-03-15] MEDS: oxyCODONE 5 MG Tablet PO ×4 (01:54→17:30)
[2022-03-15] MEDS: Lactated Ringers 1,000 ML 175 ML IV ×2 (02:01→08:39)
[2022-03-15 03:24] VITALS: BP 172/77; PULSE 91; RESP 20; TEMP 36.9; O2SAT 93
[2022-03-15] MEDS: HYDROmorphone 1 MG/ML Syringe 1.5 MG IV ×4 (03:28→17:29)
[2022-03-15] MEDS: Ketorolac 15 MG/ML Vial IV ×3 (05:30→21:08)
[2022-03-15 05:32] VITALS: BP 157/70; PULSE 85; RESP 20; TEMP 36.8; O2SAT 92
[2022-03-15 07:16] LABS: Lipase 437 U/L (73-393)
[2022-03-15 08:00] VITALS: BP 159/77; PULSE 77; RESP 20; TEMP 37.2; O2SAT 97
[2022-03-15] MEDS: 0.9% Saline Lock 10 ML Syringe IV ×3 (08:36→21:08)
--- NOTE | 2022-03-15 12:04 | PCM.PN.SRG ---
Subjective Subjective patient still continues to complain of abdominal pain requiring IV pain medication he is passing flatus and has had a bowel movement he states that he does not feel hungry Objective Data Objective Data Vital Signs: Vital Signs Temp Pulse Resp BP Pulse Ox O2 Del Method 98.2 F 85 20 H 157/70 H 92 Room Air 03/15/22 05:32 03/15/22 05:32 03/15/22 05:32 03/15/22 05:32 03/15/22 05:32 03/15/22 08:00 Oxygen Delivery Method Room Air Weight: 158.9 kg Body Mass Index (BMI) 50.2 Intake & Output: Intake and Output for Last 24 Hours 03/13/22 03/14/22 03/15/22 23:59 23:59 23:59 Intake Total 4032.92 / 4032.92 4622.08 / 4622.08 2144.17 / 2144.17 Output Total 480 / 480 250 / 250 Balance 3552.92 / 3552.92 4372.08 / 4372.08 2144.17 / 2144.17 Lab / Micro Data Attestation: I reviewed the patient's lab results. Result Diagrams: 03/12/22 22:25 03/12/22 22:25 Labs: Laboratory Results - last 24 hr 03/15/22 06:10: Lipase 437 H Physical Exam Const alert and oriented x3 HEENT normocephalic Neck full ROM Resp normal respiratory effort Effort and Inspection: able to speak in complete sentences GI GI Narrative: abdomen is soft and morbidly obese - essentially unchanged from admission KENNETH output is bile colored Assessment & Plan Assessment/Plan (1) Acute pancreatitis: PLAN: Patient still with continued abdominal pain serum lipase levels are normalizing, suspect patient with continued inflammatory pain due to increased adiposity Continue supportive care continue present therapy
[2022-03-15 16:14] VITALS: BP 134/70; PULSE 68; RESP 18; TEMP 36.8; O2SAT 98
[2022-03-15 21:11] VITALS: BP 164/86; PULSE 88; RESP 22; TEMP 37.2; O2SAT 94
[2022-03-15] MEDS: Lactated Ringers 1,000 ML 75 ML IV (21:16)
[2022-03-16] VITALS (10 sets, daily range): BP systolic 100–176; BP diastolic 61–92; PULSE 71–91; RESP 16–22; TEMP 36.4–37.7; O2SAT 89–96
[2022-03-16] MEDS: Acetaminophen 325 MG Tablet PO (00:59)
[2022-03-16] MEDS: oxyCODONE 5 MG Tablet PO ×3 (03:22→13:06)
[2022-03-16] MEDS: HYDROmorphone 1 MG/ML Syringe 1.5 MG IV ×4 (04:12→20:00)
[2022-03-16] MEDS: 0.9% Saline Lock 10 ML Syringe IV ×5 (04:12→22:24)
[2022-03-16] MEDS: Ketorolac 15 MG/ML Vial IV ×3 (06:35→21:17)
--- NOTE | 2022-03-16 09:44 | PN.HOSP_ITS ---
Documented by User: Arianne Lopez NP, SENIOR HOUSEKEEPER-C 03/16/22 09:56 Subjective Subjective Patient seen and examined. Has been ambulating the hallway this morning. Reports continued abdominal pain. Denies history of elevated blood pressure. Objective Data Objective Data Vital Signs: Vital Signs Temp Pulse Resp BP Pulse Ox O2 Del Method 98.3 F 73 20 H 164/87 H 95 Room Air 03/16/22 08:37 03/16/22 08:37 03/16/22 08:37 03/16/22 08:37 03/16/22 08:37 03/16/22 08:37 Oxygen Delivery Method Room Air Weight: 350 lb 5.032 oz Body Mass Index (BMI) 50.2 Intake & Output: Intake and Output for Last 24 Hours 03/14/22 03/15/22 03/16/22 23:59 23:59 23:59 Intake Total 4622.08 / 4622.08 4442.50 / 4442.50 300 / 300 Output Total 250 / 250 15 / 15 Balance 4372.08 / 4372.08 4427.50 / 4427.50 300 / 300 Lab / Micro Data Result Diagrams: 03/12/22 22:25 03/12/22 22:25 Physical Exam Const alert and oriented x3 Nutritional Appearance: obese HEENT normocephalic Mouth: dry mucous membranes Eyes PERRL, EOMs intact bilaterally and conjunctivae normal Neck no lymphadenopathy Resp normal respiratory effort and clear to auscultation bilaterally Cardio regular rate, regular rhythm and no murmurs Peripheral Pulses: pulses 2+ throughout GI normal to inspection, nondistended, normoactive bowel sounds and soft to palpation Auscultation: hypoactive bowel sounds Palpation: tender Extremity normal to inspection Skin no rashes or lesions noted Lesions: no lesions Rashes: no rashes Trauma: no lacerations or abrasions Neuro CN's II-XII intact bilaterally, no focal motor deficits, no sensory deficits noted and deep tendon reflexes 2+ bilaterally Psych mental status grossly normal and affect normal Assessment & Plan Assessment/Plan (1) Acute pancreatitis: PLAN: Plan 1. Elevated blood pressure without history of hypertension-likely secondary to pain. Add as needed hydralazine for systolic blood pressure greater than 160. May need additional oral agent pending further blood pressure monitoring. 2. Acute pancreatitis-history of open cholecystectomy 02/18/2022. ERCP 03/12/2022. Management per surgery. 3. ABDULKADIR-on BiPAP. 4. Morbid obesity-diet and lifestyle modifications encouraged. DVT prophylaxis- SCDs This patient was seen by BROOKLYN Rodgers under the supervision of Dr. Gongora. Time spent examining patient, reviewing data and subsequent management of care: 12 minutes Documented by User: Dr. Gregg Gongora MD 03/16/22 11:23 Objective Data Lab / Micro Data Result Diagrams: 03/12/22 22:25 03/12/22 22:25 Assessment & Plan Assessment/Plan (1) Acute pancreatitis: Charges/Coding Addendum Addendum: Addendum: Dr. Gongora I personally examined the patient and reviewed the chart. I agree with the above. 61-year-old male presented to the hospital with abdominal pain consistent with pancreatitis. He had a cholecystectomy on 02/18/2022 and then on March 12 had an ERCP done to control a bile leak and since then has been having abdominal pain. CT scan did not show any peripancreatic inflammation. Lipase has been improving on admission he was around 4600 and now is down to 437 on 03/15/2022. General surgery will manage his diet and his pancreatitis however we were notified about an elevated blood pressure with systolics in the 160s. He does not have a history of blood pressure issues at home. We will start him on IV hydralazine as needed, there is a possibility that this is pain related. We will continue to follow peripherally and if necessary start him on permanent blood pressure medications prior to discharge. Clinical time spent in all aspects of patient care: 15 minutes Visit Charges Inpatient E&M: 46429 Subs Hosp L2
--- NOTE | 2022-03-16 11:45 | PCM.PN.SRG ---
Subjective Subjective patient still with abdominal pain requiring IV pain medications serum lipase was almost normal yesterday patient complains of abdominal bloating - passing flatus and having BMs Objective Data Objective Data Vital Signs: Vital Signs Temp Pulse Resp BP Pulse Ox O2 Del Method 98.3 F 73 20 H 164/87 H 95 Room Air 03/16/22 08:37 03/16/22 08:37 03/16/22 08:37 03/16/22 08:37 03/16/22 08:37 03/16/22 09:30 Oxygen Delivery Method Room Air Weight: 158.9 kg Body Mass Index (BMI) 50.2 Intake & Output: Intake and Output for Last 24 Hours 03/14/22 03/15/22 03/16/22 23:59 23:59 23:59 Intake Total 4622.08 / 4622.08 4442.50 / 4442.50 300 / 300 Output Total 250 / 250 15 / 15 Balance 4372.08 / 4372.08 4427.50 / 4427.50 300 / 300 Lab / Micro Data Attestation: I reviewed the patient's lab results. Result Diagrams: 03/12/22 22:25 03/12/22 22:25 Physical Exam Const alert and oriented x3 General Appearance: cooperative Resp normal respiratory effort Effort and Inspection: able to speak in complete sentences GI GI Narrative: abdomen is obese, soft and with no peritoneal signs Assessment & Plan Assessment/Plan (1) Acute pancreatitis: PLAN: resolved by laboratory data however, patient still with pain - suspect continued inflammatory process due to patient's BMI will keep patient in hospital as he has intractable abdominal pain and still requiring IV pain meds I have encouraged ambulation - nurses note that patient is loathe to have increased physical activity (2) Bile leak, postoperative: PLAN: decreasing output
[2022-03-16] MEDS: Docusate Sodium 100 MG Capsule 200 MG PO ×2 (14:19→21:17)
[2022-03-16] MEDS: hydrALAZINE 20 MG/ML Vial 10 MG IV (15:12)
--- NOTE | 2022-03-16 16:14 | CHAPLAIN ---
Type of Pastoral Visit _x__ Initial Visit ___ Follow-up Visit ___ On-call Visit ___ General Patient Visit ___ Spiritual Assessment ___ Family Conference ___ Bereavement ___ Rapid Response ___ Code Blue ___ Other (describe below) Pastoral Care Referral From _x__ Patient ___ Family ___ Nurse ___ Physician ___ Athletic Team Physician ___ Fire Claims Adjuster ___ Other (describe below) Sacrament/Intervention _x__ Active listening ___ Anointing ___ Jewish ___ Bereavement ___ Communion ___ Reshma exploration ___ _x__ Life review _x__ Prayer ___ Reconciliation ___ Sacrament of Sick _x__ Supportive presence ___ Wedding ___ Other (describe below) Pastoral Comments patient has been seen before and welcomes spiritual care support; 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
[2022-03-16] MEDS: Lactated Ringers 1,000 ML 75 ML IV (22:24)
[2022-03-17] VITALS (11 sets, daily range): BP systolic 163–189; BP diastolic 75–95; PULSE 73–89; RESP 18–20; TEMP 36.6–37.2; O2SAT 93–97
[2022-03-17] MEDS: oxyCODONE 5 MG Tablet PO ×2 (01:54→14:50)
[2022-03-17] MEDS: hydrALAZINE 20 MG/ML Vial 10 MG IV ×3 (06:18→15:54)
[2022-03-17] MEDS: 0.9% Saline Lock 10 ML Syringe IV ×2 (06:18→21:36)
[2022-03-17] MEDS: Ketorolac 15 MG/ML Vial IV ×3 (06:22→21:36)
[2022-03-17 09:12] LABS: Absolute Neutrophil Count 9.2 X10^3/uL (2.0-7.7); Basophil# 0.03 X10^3/uL; Basophil% 0.3 % (0-1); Eosinophil# 0.12 X10^3/uL; Hematocrit 34.9 % (40-54); Hemoglobin 12.4 g/dL (13.0-16.5); Lymphocyte % 9.2 % (19-41); Mean Corp Hgb Conc 35.5 g/dL (32-36); Mean Corpuscular Volume 87.3 fL (80-94); Mean Platelet Vol. 8.8 fl (6.2-12.0); Monocyte% 11.7 % (0-10); NRBC Flagged by Analyzer 0 % (0-5); Neutrophil # 9.17 X10^3/uL (2.7-7.7); Platelet Count 225 K/mm3 (150-450); RBC Distribution Width CV 13.1 % (11.6-14.6); RBC Distribution Width SD 41.5 fl (35.1-43.9); White Blood Count 11.9 K/mm3 (4.4-11.0)
[2022-03-17 09:30] LABS: Anion Gap 7 (5-15); BUN 10 mg/dL (7-18); BUN/Creat Ratio 15.8 RATIO (10-20); Calcium,Total 8.3 mg/dL (8.5-10.1); Chloride 100 mmol/L (98-107); Creatinine, Serum 0.63 mg/dL (0.70-1.30); EST Glomerular Filtration Rate 136 mL/min (>60); Est Glom Filt Rate - Afr Amer 165 mL/min (>60); Estimated Creatinine Clearance 127.14 ml/min; Glucose 104 mg/dL (74-106); Potassium 3.4 mmol/L (3.5-5.1); Sodium Level 133 mmol/L (136-145)
[2022-03-17 10:01] LABS: Hemoglobin A1c 5.7 % (3.8-5.6)
[2022-03-17] MEDS: Docusate Sodium 100 MG Capsule 200 MG PO ×2 (10:54→21:36)
[2022-03-17] MEDS: Acetaminophen 325 MG Tablet PO ×2 (10:54→20:20)
[2022-03-17] MEDS: Lisinopril 10 MG Tablet PO ×2 (11:24→18:14)
[2022-03-17] MEDS: Lactated Ringers 1,000 ML 75 ML IV (11:27)
--- NOTE | 2022-03-17 11:57 | PN.SURG_ITS ---
Subjective Subjective still complaint of generalized abdominal pain passing flatus, last had bowel movement about two days ago, states that he feels bloated thinks he is getting better patient also complains of shortness of breath with ambulation - suspect deconditioning and also patient's body habitus (I have noticed that for the past 5 days of rounding on the patient, I have never seen him out of bed) Objective Data Objective Data Vital Signs: Vital Signs Temp Pulse Resp BP Pulse Ox O2 Del Method O2 Flow Rate 99 F 74 18 174/76 H 95 Room Air 2 03/17/22 10:46 03/17/22 10:54 03/17/22 10:46 03/17/22 10:46 03/17/22 10:46 03/17/22 10:46 03/16/22 21:15 Oxygen Flow Rate (L/min) 2 Oxygen Delivery Method Room Air Weight: 158.9 kg Body Mass Index (BMI) 50.2 Intake & Output: Intake and Output for Last 24 Hours 03/15/22 03/16/22 03/17/22 23:59 23:59 23:59 Intake Total 4442.50 / 4442.50 3052.5 / 3052.5 1458.75 / 1458.75 Output Total 15 / 15 65 / 65 Balance 4427.50 / 4427.50 2987.5 / 2987.5 1458.75 / 1458.75 Lab / Micro Data Attestation: I reviewed the patient's lab results. Result Diagrams: 03/17/22 08:58 03/17/22 08:58 Labs: Laboratory Results - last 24 hr 03/17/22 08:58: WBC 11.9 H, RBC 4.00 L, Hgb 12.4 L, Hct 34.9 L, MCV 87.3, MCH 31.0, MCHC 35.5, RDW Std Deviation 41.5, RDW Coeff of Reshma 13.1, Plt Count 225, MPV 8.8, Immature Gran % (Auto) 0.800, Neut % (Auto) 77.0 H, Lymph % (Auto) 9.2 L, [place] % (Auto) 11.7 H, Eos % (Auto) 1.0, Baso % (Auto) 0.3, Absolute Neuts (auto) 9.2 H, Absolute Lymphs (auto) 1.10, Nucleated RBC % 0 03/17/22 08:58: Sodium 133 L, Potassium 3.4 L, Chloride 100, Carbon Dioxide 26 .0, Anion Gap 7, BUN 10, Creatinine 0.63 L, Estim Creat Clear Calc 127.14, Est GFR (MDRD) Af Amer 165, Est GFR (MDRD) Non-Af 136, BUN/Creatinine Ratio 15.8, Glucose 104, Calcium 8.3 L 03/17/22 08:58: Hemoglobin A1c 5.7 H Physical Exam Const alert and oriented x3 General Appearance: cooperative Resp normal respiratory effort Effort and Inspection: able to speak in complete sentences GI GI Narrative: abdomen - soft, no peritoneal signs Assessment & Plan Assessment/Plan (1) Acute pancreatitis: PLAN: the patient's states that she feels he is improving will start regular diet if patient can tolerate pain with oral pain meds only, will then d/c to home maintain KENNETH drain, but probably will be able to d/c in a few days, can be done as an outpatient
--- NOTE | 2022-03-17 12:47 | PN.HOSP_ITS ---
Documented by User: Arianne Lopez NP, MACHINE [employer]TER-C 03/17/22 12:49 Subjective Subjective Patient seen and examined. Continues to have abdominal pain, mildly improved. Passing flatus. No bowel movement. Feels bloated. Blood pressure elevated this morning. Hemoglobin A1c obtained due to elevated glucose which was 5.7%. Objective Data Objective Data Vital Signs: Vital Signs Temp Pulse Resp BP Pulse Ox O2 Del Method O2 Flow Rate 99 F 74 18 174/76 H 95 Room Air 2 03/17/22 10:46 03/17/22 10:54 03/17/22 10:46 03/17/22 10:46 03/17/22 10:46 03/17/22 10:46 03/16/22 21:15 Oxygen Flow Rate (L/min) 2 Oxygen Delivery Method Room Air Weight: 350 lb 5.032 oz Body Mass Index (BMI) 50.2 Intake & Output: Intake and Output for Last 24 Hours 03/15/22 03/16/22 03/17/22 23:59 23:59 23:59 Intake Total 4442.50 / 4442.50 3052.5 / 3052.5 1458.75 / 1458.75 Output Total 15 65 / 65 Balance 4427.50 / 4427.50 2987.5 / 2987.5 1458.75 / 1458.75 Lab / Micro Data Result Diagrams: 03/17/22 08:58 03/17/22 08:58 Labs: Laboratory Results - last 24 hr 03/17/22 08:58: WBC 11.9 H, RBC 4.00 L, Hgb 12.4 L, Hct 34.9 L, MCV 87.3, MCH 31.0, MCHC 35.5, RDW Std Deviation 41.5, RDW Coeff of Reshma 13.1, Plt Count 225, MPV 8.8, Immature Gran % (Auto) 0.800, Neut % (Auto) 77.0 H, Lymph % (Auto) 9.2 L, [place] % (Auto) 11.7 H, Eos % (Auto) 1.0, Baso % (Auto) 0.3, Absolute Neuts (auto) 9.2 H, Absolute Lymphs (auto) 1.10, Nucleated RBC % 0 03/17/22 08:58: Sodium 133 L, Potassium 3.4 L, Chloride 100, Carbon Dioxide 26.0, Anion Gap 7, BUN 10, Creatinine 0.63 L, Estim Creat Clear Calc 127.14, Est GFR (MDRD) Af Amer 165, Est GFR (MDRD) Non-Af 136, BUN/Creatinine Ratio 15.8, Glucose 104, Calcium 8.3 L 03/17/22 08:58: Hemoglobin A1c 5.7 H Physical Exam Const alert, oriented x3 and no apparent distress Orientation / Consciousness: awake, oriented to person, oriented to place and oriented to time HEENT normocephalic and moist oral mucous membranes Eyes PERRL, EOMs intact bilaterally and conjunctivae normal Neck no lymphadenopathy Resp normal respiratory effort and clear to auscultation bilaterally Cardio regular rate, regular rhythm and no murmurs Peripheral Pulses: pulses 2+ throughout GI normal to inspection, nondistended, normoactive bowel sounds, non-tender and non-distended Extremity normal to inspection Skin no rashes or lesions noted Lesions: no lesions Rashes: no rashes Trauma: no lacerations or abrasions Neuro CN's II-XII intact bilaterally, no focal motor deficits, no sensory deficits noted and deep tendon reflexes 2+ bilaterally Psych mental status grossly normal and affect normal Assessment & Plan Assessment/Plan (1) Acute pancreatitis: PLAN: Plan 1. Elevated blood pressure without history of hypertension-likely secondary to pain however remaining above goal.?As needed hydralazine for systolic blood pressure greater than 160.? Add lisinopril 10 mg daily. Continue ongoing monitoring and adjustment. 2.? Acute pancreatitis-history of open cholecystectomy 02/18/2022.? ERCP 03/12/2022.? Management per surgery. 3. ABDULKADIR-on BiPAP.? 4. Morbid obesity-diet and lifestyle modifications encouraged. 5. Elevated glucose-hemoglobin A1c 5.7%. Recommend carb controlled diet. DVT prophylaxis- SCDs This patient was seen by BROOKLYN Rodgers under the supervision of Dr. Gongora. Time spent examining patient, reviewing data and subsequent management of care: 10 minutes Documented by User: Dr. Gregg Gongora MD 03/17/22 13:11 Objective Data Lab / Micro Data Result Diagrams: 03/17/22 08:58 03/17/22 08:58 Assessment & Plan Assessment/Plan (1) Acute pancreatitis: Charges/Coding Addendum Addendum: Dr. Gongora I personally examined the patient and reviewed the chart. I agree with the above.? 61-year-old male presented to the hospital with abdominal pain consistent with pancreatitis.? He had a cholecystectomy on 02/18/2022 and then on March 12 had an ERCP done to control a bile leak and since then has been having abdominal pain.? CT scan did not show any peripancreatic inflammation.? Lipase has been improving on admission he was around 4600 and now is down to 437 on 03/15/2022.? General surgery will manage his diet and his pancreatitis however we were notified about an elevated blood pressure with systolics in the 160s.? He does not have a history of blood pressure issues at home.? We will start him on IV hydralazine as needed, there is a possibility that this is pain related.? We will continue to follow peripherally and if necessary start him on permanent blood pressure medications prior to discharge.? Clinical time spent in all aspects of patient care: 15 minutes 03/17/2022: Doing well, blood pressures are still elevated he has received hydralazine. A1c is 5.7 therefore given his body habitus and his slight elevation in his A1c we will start him on lisinopril 10 mg p.o. daily. We will continue to monitor his kidney function. Discharge planning per primary. Clinical spent in all aspects of patient care: 15 minutes Visit Charges Inpatient E&M: 30214 Subs Hosp L2
[2022-03-17] MEDS: Potassium Chloride Oral Tablet 20 MEQ 40 MEQ PO (14:49)
--- NOTE | 2022-03-17 15:13 | CHAPLAIN ---
Type of Pastoral Visit ___ Initial Visit _x__ Follow-up Visit ___ On-call Visit ___ General Patient Visit ___ Spiritual Assessment ___ Family Conference ___ Bereavement ___ Rapid Response ___ Code Blue ___ Other (describe below) Pastoral Care Referral From _x__ Patient _x__ Family ___ Nurse ___ Physician ___ Financial Internship ___ Fruit Peeler ___ Other (describe below) Sacrament/Intervention _x__ Active listening ___ Anointing ___ Nondenominational ___ Bereavement ___ Communion ___ Reshma exploration ___ ___ Life review _x__ Prayer ___ Reconciliation ___ Sacrament of Sick _x__ Supportive presence ___ Wedding ___ Other (describe below) Pastoral Comments patient expresses his discomfort; pt questions when he can go home and spouse states that they may want to keep him longer or send him to a SNF; spouse is in room for support but also speaks of her health needs; pt to have cancer biopsy next Tuesday; spouse says they are feeling overwhelmed with the health issues; family is supportive and they have friends and yarsanism members for added support; acknowledgement of their feelings, compassionate listening; and prayer given; talked with CM about accuracy of SNF ideas; CM will talk with them later
[2022-03-18] MEDS: Lactated Ringers 1,000 ML 75 ML IV (01:23)
[2022-03-18 04:33] VITALS: BP 162/97; PULSE 66
[2022-03-18] MEDS: hydrALAZINE 20 MG/ML Vial 10 MG IV (04:33)
[2022-03-18] MEDS: 0.9% Saline Lock 10 ML Syringe IV (04:34)
[2022-03-18 06:24] LABS: Absolute Lymphocyte Count 1.06 X10^3/uL (0.83-4.51); Absolute Neutrophil Count 9.5 X10^3/uL (2.0-7.7); Basophil# 0.05 X10^3/uL; Basophil% 0.4 % (0-1); Eosinophil# 0.07 X10^3/uL; Eosinophils% 0.6 % (0-5); Hematocrit 37.6 % (40-54); Hemoglobin 12.9 g/dL (13.0-16.5); Lymphocyte # 1.06 X10^3/ul (0.83-4.51); Lymphocyte % 8.6 % (19-41); Mean Corp Hgb Conc 34.3 g/dL (32-36); Mean Corpuscular Hgb 30.1 pg (27.0-32.0); Mean Corpuscular Volume 87.6 fL (80-94); Mean Platelet Vol. 8.8 fl (6.2-12.0); Monocyte% 11.4 % (0-10); NRBC Flagged by Analyzer 0 % (0-5); Neutrophil # 9.53 X10^3/uL (2.7-7.7); Neutrophil % 77.2 % (47-70); Platelet Count 249 K/mm3 (150-450); RBC Distribution Width CV 13.2 % (11.6-14.6); Red Blood Count 4.29 M/mm3 (4.6-6.2); White Blood Count 12.3 K/mm3 (4.4-11.0)
[2022-03-18 06:33] VITALS: BP 180/79
[2022-03-18] MEDS: Ketorolac 15 MG/ML Vial IV (06:37)
[2022-03-18 06:57] LABS: Anion Gap 7 (5-15); BUN 10 mg/dL (7-18); BUN/Creat Ratio 16.1 RATIO (10-20); Calcium,Total 8.3 mg/dL (8.5-10.1); Chloride 100 mmol/L (98-107); Creatinine, Serum 0.62 mg/dL (0.70-1.30); EST Glomerular Filtration Rate 140 mL/min (>60); Est Glom Filt Rate - Afr Amer 169 mL/min (>60); Estimated Creatinine Clearance 129.19 ml/min; Glucose 122 mg/dL (74-106); Potassium 3.5 mmol/L (3.5-5.1); Sodium Level 134 mmol/L (136-145)
--- NOTE | 2022-03-18 07:01 | DCINST_ITS ---
Discharge Instructions Follow Up Care Test Results: Test results from this visit will be discussed in further detail at your follow- up appointment, if applicable. Discharge Plan Admission Admit Date/Time: 03/13/22 00:54 Attending Provider: Renetta Alex Primary Care Provider: Tri Choudhury Consulting Providers: Gregg Gongora Instructions Additional Instructions / Restrictions: Follow up with Dr. Alex - Tuesday, Tuesday or Tuesday for consideration of removal of KENNETH drain call for time Discharge Orders/Prescriptions Prescriptions: New oxycodone 5 mg capsule 5 mg PO Q12H PRN (Reason: pain) 5 Days Qty: 10 0RF No Action aspirin [Adult Aspirin Regimen] 81 mg tablet,delayed release (DR/EC) 81 mg PO DAILY magnesium 250 mg Tablet 250 mg PO DAILY omega 6-kzb-clu-fish oil [Fish Oil] 300-1,000 mg Capsule 1 cap PO DAILY Referrals / Follow Up: Tri Choudhury MD [Primary Care Provider] -
--- NOTE | 2022-03-18 07:01 | PCM.PN.SRG ---
Subjective Subjective patient is ready to go home Objective Data Objective Data Vital Signs: Vital Signs Temp Pulse Resp BP Pulse Ox O2 Del Method O2 Flow Rate 97.9 F 66 18 180/79 H 94 Nasal Cannula 3 03/17/22 21:30 03/18/22 04:33 03/17/22 21:30 03/18/22 06:33 03/17/22 21:30 03/18/22 00:35 03/18/22 00:35 Oxygen Flow Rate (L/min) 3 Oxygen Delivery Method Nasal Cannula Weight: 158.9 kg Body Mass Index (BMI) 50.2 Intake & Output: Intake and Output for Last 24 Hours 03/16/22 03/17/22 03/18/22 23:59 23:59 23:59 Intake Total 3052.5 / 3052.5 1708.75 / 1708.75 1000 / 1000 Output Total 65 / 65 10 / 10 Balance 2987.5 / 2987.5 1698.75 / 1698.75 1000 / 1000 Lab / Micro Data Attestation: I reviewed the patient's lab results. Result Diagrams: 03/18/22 06:00 03/18/22 06:00 Labs: Laboratory Results - last 24 hr 03/17/22 08:58: WBC 11.9 H, RBC 4.00 L, Hgb 12.4 L, Hct 34.9 L, MCV 87.3, MCH 31.0, MCHC 35.5, RDW Std Deviation 41.5, RDW Coeff of Reshma 13.1, Plt Count 225, MPV 8.8, Immature Gran % (Auto) 0.800, Neut % (Auto) 77.0 H, Lymph % (Auto) 9.2 L, [place] % (Auto) 11.7 H, Eos % (Auto) 1.0, Baso % (Auto) 0.3, Absolute Neuts (auto) 9.2 H, Absolute Lymphs (auto) 1.10, Nucleated RBC % 0 03/17/22 08:58: Sodium 133 L, Potassium 3.4 L, Chloride 100, Carbon Dioxide 26.0, Anion Gap 7, BUN 10, Creatinine 0.63 L, Estim Creat Clear Calc 127.14, Est GFR (MDRD) Af Amer 165, Est GFR (MDRD) Non-Af 136, BUN/Creatinine Ratio 15.8, Glucose 104, Calcium 8.3 L 03/17/22 08:58: Hemoglobin A1c 5.7 H 03/18/22 06:00: WBC 12.3 H, RBC 4.29 L, Hgb 12.9 L, Hct 37.6 L, MCV 87.6, MCH 30.1, MCHC 34.3, RDW Std Deviation 42.0, RDW Coeff of Reshma 13.2, Plt Count 249, MPV 8.8, Immature Gran % (Auto) 1.800 H, Neut % (Auto) 77.2 H, Lymph % (Auto) 8.6 L, [place] % (Auto) 11.4 H, Eos % (Auto) 0.6, Baso % (Auto) 0.4, Absolute Neuts (auto) 9.5 H, Absolute Lymphs (auto) 1.06, Nucleated RBC % 0 03/18/22 06:00: Sodium 134 L, Potassium 3.5, Chloride 100, Carbon Dioxide 27.0, Anion Gap 7, BUN 10, Creatinine 0.62 L, Estim Creat Clear Calc 129.19, Est GFR (MDRD) Af Amer 169, Est GFR (MDRD) Non-Af 140, BUN/Creatinine Ratio 16.1, Glucose 122 H, Calcium 8.3 L Physical Exam Const alert and oriented x3 Resp normal respiratory effort Effort and Inspection: able to speak in complete sentences GI GI Narrative: abdomen obese - no peritoneal signs Assessment & Plan Assessment/Plan (1) Acute pancreatitis: PLAN: can d/c to home Follow up in several days to d/c KENNETH drain
[2022-03-18] MEDS: Lisinopril 20 MG Tablet PO (09:08)
[2022-03-18] MEDS: amLODIPine 10 MG Tablet PO (09:10)
[2022-03-18 09:14] VITALS: BP 166/83; PULSE 94; RESP 20; TEMP 36.8; O2SAT 95
[2022-03-18 09:30] VITALS: O2SAT 95
--- NOTE | 2022-03-18 09:41 | CASEMGMT ---
RN CM NOTE: Pt is being discharged. RN CM to room. Introduced self and role. Pt denies having any discharge or home-going needs or concerns. Nohelia ACKERMANN RN CM
--- NOTE | 2022-03-18 10:35 | PN.HOSP_ITS ---
Subjective Subjective Feels better, pain resolved with food intake Objective Data Objective Data Vital Signs: Vital Signs Temp Pulse Resp BP Pulse Ox O2 Del Method O2 Flow Rate 98.3 F 94 20 H 166/83 H 95 Room Air 3 03/18/22 09:14 03/18/22 09:14 03/18/22 09:14 03/18/22 09:14 03/18/22 09:14 03/18/22 09:14 03/18/22 06:35 Oxygen Flow Rate (L/min) 3 Oxygen Delivery Method Room Air Weight: 350 lb 5.032 oz Body Mass Index (BMI) 50.2 Intake & Output: Intake and Output for Last 24 Hours 03/17/22 03/18/22 03/19/22 03:59 03:59 03:59 Intake Total 3052.5 / 3052.5 2708.75 / 2708.75 583.75 / 583.75 Output Total 65 / 65 10 / 10 10 / 10 Balance 2987.5 / 2987.5 2698.75 / 2698.75 573.75 / 573.75 Lab / Micro Data Result Diagrams: 03/18/22 06:00 03/18/22 06:00 Labs: Laboratory Results - last 24 hr 03/18/22 06:00: WBC 12.3 H, RBC 4.29 L, Hgb 12.9 L, Hct 37.6 L, MCV 87.6, MCH 30.1, MCHC 34.3, RDW Std Deviation 42.0, RDW Coeff of Reshma 13.2, Plt Count 249, MPV 8.8, Immature Gran % (Auto) 1.800 H, Neut % (Auto) 77.2 H, Lymph % (Auto) 8.6 L, [place] % (Auto) 11.4 H, Eos % (Auto) 0.6, Baso % (Auto) 0.4, Absolute Neuts (auto) 9.5 H, Absolute Lymphs (auto) 1.06, Nucleated RBC % 0 03/18/22 06:00: Sodium 134 L, Potassium 3.5, Chloride 100, Carbon Dioxide 27.0, Anion Gap 7, BUN 10, Creatinine 0.62 L, Estim Creat Clear Calc 129.19, Est GFR (MDRD) Af Amer 169, Est GFR (MDRD) Non-Af 140, BUN/Creatinine Ratio 16.1, Glucose 122 H, Calcium 8.3 L Physical Exam Const alert, oriented x3 and no apparent distress General Appearance: cooperative HEENT normocephalic and moist oral mucous membranes Eyes PERRL, EOMs intact bilaterally and conjunctivae normal Neck supple and no JVD Resp normal respiratory effort, no retractions, no use of accessory muscles and clear to auscultation bilaterally Auscultation: Negative for crackles, rales, rhonchi or wheezes Cardio regular rate, regular rhythm, S1 normal heart sound, S2 normal heart sound and no murmurs GI soft to palpation, non-tender and non-distended; Negative for hepatosplenomegaly Extremity no clubbing, cyanosis or edema Skin no rashes or lesions noted Neuro no focal motor deficits and no sensory deficits noted Psych affect normal Appearance: appropriate Assessment & Plan Assessment/Plan (1) Acute pancreatitis: PLAN: Plan 1. Hypertension/morbid obesity/ABDULKADIR ? She was not diagnosed with this as an outpatient however he is maintaining systolic blood pressures over the 160s despite not being in pain ? We will continue with lisinopril 20 mg p.o. daily as well as Norvasc 10 mg p.o. daily ? I recommend that he follow-up with his PCP in 3 to 5 days for outpatient monit oring and blood work ? Discussed with him lifestyle modifications which will help both of his ABDULKADIR is well as his hypertension ? BMI of 50.3 ? Okay medically for discharge. 2. Acute pancreatitis ? Management per primary 1. Elevated blood pressure without history of hypertension-likely secondary to pain however remaining above goal.?As needed hydralazine for systolic blood pressure greater than 160.? Add lisinopril 10 mg daily. Continue ongoing monitoring and adjustment. Charges/Coding Visit Charges Inpatient E&M: 20765 Subs Hosp L2
[2022-03-18 11:19] VITALS: BP 186/96
[2022-03-18] MEDS: oxyCODONE 5 MG Tablet PO (12:12)
--- NOTE | 2022-03-18 19:55 | DS.PCM_ITS ---
Discharge Summary Date of Admission: 03/13/22 Date of Discharge: 03/18/22 Summary: Gustavo Burdick is a 61 y/o super morbidly obese WM who is s/p open cholecystectomy with controlled bile leak. He underwent ERCP on March 12 and developed abdominal pain a few hours after the procedure. He presented to [facility] ED [place] [address]. He was admitted to the hospital. Subsequent lipase levels: 03/13 8161 and 4616; 03/14 1507; 03/15 437 (with normal at 393) Despite almost normalized levels on 03/15, patient continued to have abdominal pain requiring IV pain medications and therefore stayed in the hospital. He had persistently elevated BP and therefore Internal Medicine consultation was obtained. Patient was also noted to have elevated HgbA1c. Patient felt ready for discharge on 03/18/2022. Meaningful Use Info Meaningful Use Diagnoses (Choose all that apply): None applicable Discharge Plan Admission Admit Date/Time: 03/13/22 00:54 Attending Provider: Renetta Alex Primary Care Provider: Tri Choudhury Consulting Providers: Gregg Gongora Instructions Additional Instructions / Restrictions: Follow up with Dr. Alex - Tuesday, Tuesday or Tuesday for consideration of removal of KENNETH drain call for time. Follow-up with your PCP in 3 to 5 days to monitor your renal function and your blood pressures given that she was started on lisinopril. Discharge Orders/Prescriptions Prescriptions: New oxycodone 5 mg capsule 5 mg PO Q12H PRN (Reason: pain) 5 Days Qty: 10 0RF lisinopril 20 mg Tablet 20 mg PO DAILY Qty: 30 0RF amlodipine 10 mg Tablet 10 mg PO DAILY Qty: 30 0RF Continued magnesium 250 mg Tablet 250 mg PO DAILY omega 0-wjj-ihs-fish oil [Fish Oil] 300-1,000 mg Capsule 1 cap PO DAILY No Action aspirin [Adult Aspirin Regimen] 81 mg tablet,delayed release (DR/EC) 81 mg PO DAILY Referrals / Follow Up: Tri Choudhury MD [Primary Care Provider] - Disposition Disposition (needs filled in before D/C Order can be placed): Home, Self Care
== END 2022-03-18 12:14 | disposition home or self-care (01) | DRG 439 ==
LOC: ED 03-13 01:03 → MS3 03-13 01:24
PROVIDERS: Family Medicine; Nurse Practitioner Family; Admitting Provider Surgery; Emergency Provider Emergency Medicine; PCP Family Medicine; Visit Provider Surgery
DX: K85.90 Acute pancreatitis without necrosis or infection, unspecified (principal); K91.89 Other postprocedural complications and disorders of digestive system; Z68.43 Body mass index [BMI] 50.0-59.9, adult; K83.8 Other specified diseases of biliary tract; E66.01 Morbid (severe) obesity due to excess calories; G47.33 Obstructive sleep apnea (adult) (pediatric); M19.90 Unspecified osteoarthritis, unspecified site; I10 Essential (primary) hypertension; Z90.49 Acquired absence of other specified parts of digestive tract; Y83.8 Other surgical procedures as the cause of abnormal reaction of the patient, or of later complication, without mention of misadventure at the time of the procedure; R73.9 Hyperglycemia, unspecified
CPT/HCPCS: 36415; 74177; 80048; 80076; 83036; 83605; 83690; 85025; 97802; 99283; J7030; J7120; Q9967; A4216; J2405

== ENCOUNTER → 2022-03-24 | Outpatient (CLI) | payer OTHER, SELFPAY ==
[2022-03-24 15:25] LABS: Color, Urine Yellow (Yellow); Glucose, Dipstick Normal (Normal); Ketone-Dipstick Negative (Negative); Leukocyte Esterase-Dipstick 25 /ul (Negative); Nitrite-Dipstick Negative (Negative); Occult Blood-Urine 50 /ul (Negative); Protein-Dipstick Negative (Negative); Urine Bilirubin Dipstick Negative (Negative); Urine Clarity Clear (Clear); Urine Urobilinogen Normal (Normal)
[2022-03-24 15:53] LABS: Anion Gap 5 (5-15); BUN 13 mg/dL (7-18); BUN/Creat Ratio 18.1 RATIO (10-20); Calcium,Total 9.3 mg/dL (8.5-10.1); Chloride 100 mmol/L (98-107); Creatinine, Serum 0.72 mg/dL (0.70-1.30); EST Glomerular Filtration Rate 118 mL/min (>60); Est Glom Filt Rate - Afr Amer 143 mL/min (>60); Glucose 132 mg/dL (74-106); Potassium 4.4 mmol/L (3.5-5.1); Sodium Level 133 mmol/L (136-145)
== END | disposition home or self-care (01) ==
PROVIDERS: PCP Family Medicine; Referring Provider Family Medicine; Visit Provider Family Medicine
DX: I10 Essential (primary) hypertension (principal); R35.0 Frequency of micturition
CPT/HCPCS: 36415; 80048; 81002

== ENCOUNTER 2022-04-25 16:08 | Emergency (ER) | payer OTHER, SELFPAY ==
[2022-04-25 16:09] VITALS: BP 161/80; PULSE 75; RESP 18; TEMP 36.5; O2SAT 95; BMI 49.7
--- NOTE | 2022-04-25 17:13 | EX.ED.DYSGE1 ---
HPI History of Present Illness Chief Complaint: Lower Extremity Injury Detail of Chief Complaint: Right leg redness Informant: patient Onset/Context/Timing Onset: Days (5 days) Context: Gradual Onset Current Severity: Mild Maximum Severity: Mild Narrative Narrative: Patient presents with redness and focal swelling on the medial portion of the right lower leg. Patient states he first noticed it on Tuesday of this past week. Patient did have cholecystectomy 2 months ago. He had 2 ERCPs in March with stent placement and replacement. He has had no chest pain or shortness of breath. No fever or chills. [facility] Medical History Acute cholecystitis Arthritis BiPAP (biphasic positive airway pressure) dependence Chronic knee pain History of stress test Morbid obesity Non-smoker ABDULKADIR (obstructive sleep apnea) Pancreatitis Shortness of breath on exertion Home Medications aspirin 81 mg tablet,delayed release (Adult Aspirin Regimen) 81 mg PO DAILY heart health 03/08/22 [History Last Taken 03/12/22] magnesium 250 mg tablet 250 mg PO DAILY supplement 03/09/22 [History Last Taken 03/12/22] omega 6-bts-ymw-fish oil 300 mg-1,000 mg capsule (Fish Oil) 1 cap PO DAILY supplement 03/09/22 [History Last Taken 03/12/22] amlodipine 10 mg tablet 10 mg PO DAILY #30 tabs 03/18/22 [Rx Last Taken Unknown] lisinopril 20 mg tablet 20 mg PO DAILY #30 tabs 03/18/22 [Rx Last Taken Unknown] oxycodone 5 mg capsule 5 mg PO Q12H PRN pain 5 days #10 caps 03/18/22 [Rx Last Taken Unknown] Allergy/AdvReac Type Severity Reaction Status Date / Time No Known Allergies Allergy Verified 03/12/22 20:30 Family History Mother Asthma Diabetes Father Colon cancer Sister Cancer Liver cancer Brother Diabetes Surgical History History of cholecystectomy History of surgery of liver Status post cholecystectomy Social History Smoking Status: Never smoker alcohol intake: never ROS ROS ED Constitutional Constitutional ED: Denies chills or fever(s) Eyes Eyes: Denies change in vision or discharge from eye(s) ENT ENT ED: Denies discharge from eye(s), rhinorrhea or sore throat Cardiovascular Cardiovascular: Denies chest pain or palpitations Respiratory/Chest Respiratory/Chest: Denies cough or dyspnea Gastrointestinal Gastrointestinal: Denies abdominal pain, diarrhea, nausea or vomiting Genitourinary Genitourinary ED: Denies difficulty urinating or dysuria Musculoskeletal Musculoskeletal: Reports extremity pain; Denies back pain Integumentary Denies Abrasions or rash Neurologic Neurologic: Denies headache(s) or weakness Psychiatric Psychiatric: Denies anxiety or depression Allergic/Immunologic Allergic/Immunologic ED: Denies lip swelling or urticaria EXAM Physical Exam Const Vital Signs: 04/25/22 16:09 04/25/22 16:09 Temperature 97.7 F L 97.7 F L Temperature Source Temporal Temporal Pulse Rate 75 75 Respiratory Rate 18 18 Blood Pressure 161/80 H 161/80 H Blood Pressure Mean 107 107 Pulse Ox 95 95 Oxygen Delivery Method Room Air Positive well nourished and well developed General Appearance ED: well developed HEENT Reports normocephalic and head/scalp atraumatic Eyes PERRL and EOMs intact bilaterally Neck supple Chest Wall inspection of chest normal and palpation of chest normal Resp normal respiratory effort and clear to auscultation bilaterally Cardio regular rate and regular rhythm GI normal to inspection, nondistended, normoactive bowel sounds Palpation: soft Extremity Extremity Narrative: Mild erythema with palpable superficial cord along the medial aspect of the right calf. No posterior calf tenderness. Strong distal pulses. Neuro oriented x3 and no sensory deficits noted Sensorium / Orientation: alert Motor Exam: strength 5/5 throughout Psych mental status grossly normal MDM MDM MDM Narrative Medical decision making narrative: Patient be given a dose of Lovenox here. I did explain to patient and I believe this is all superficial thrombophlebitis. I will write an order for him to return tomorrow for an ultrasound as they are not available at this time. Discharge Plan Triage Chief Complaint: Lower Extremity Injury ED Provider: Sallie Bernal Dx/Rx/DC Orders Clinical Impression: Superficial thrombophlebitis Instructions: ED Thrombophlebitis, Superficial Prescriptions: No Action aspirin [Adult Aspirin Regimen] 81 mg tablet,delayed release (DR/EC) 81 mg PO DAILY magnesium 250 mg Tablet 250 mg PO DAILY omega 0-xtu-hzl-fish oil [Fish Oil] 300-1,000 mg Capsule 1 cap PO DAILY oxycodone 5 mg capsule 5 mg PO Q12H PRN (Reason: pain) 5 Days Qty: 10 0RF lisinopril 20 mg Tablet 20 mg PO DAILY Qty: 30 0RF amlodipine 10 mg Tablet 10 mg PO DAILY Qty: 30 0RF Other Ambulatory Orders: Venous Duplex US, Unilateral (Routine) Facility: [facility] - Location: [facility] Ordered By: Dr. Sallie Bernal ON-CALL NEEDED: Notify [facility] - Doppler Study Ordered (Stat) Location: None Selected Ordered By: Dr. Sallie Bernal Primary Care Provider: Tri Choudhury Referrals: Tri Choudhury MD [Primary Care Provider] - Disposition Disposition: Home, Self Care
[2022-04-25] MEDS: Enoxaparin 150 MG/ML Syringe SC (17:36)
[2022-04-25 17:42] VITALS: BP 143/78; PULSE 89; RESP 15; O2SAT 98
== END 2022-04-25 17:42 | disposition home or self-care (01) ==
PROVIDERS: Emergency Provider Emergency Medicine; PCP Family Medicine; Visit Provider Emergency Medicine
DX: I80.01 Phlebitis and thrombophlebitis of superficial vessels of right lower extremity (principal); E66.01 Morbid (severe) obesity due to excess calories; Z68.42 Body mass index [BMI] 45.0-49.9, adult; Z87.19 Personal history of other diseases of the digestive system; G47.33 Obstructive sleep apnea (adult) (pediatric); Z79.899 Other long term (current) drug therapy; Z90.49 Acquired absence of other specified parts of digestive tract; Z79.82 Long term (current) use of aspirin
CPT/HCPCS: 96372; 99283

== ENCOUNTER → 2022-04-26 | Outpatient (CLI) | payer OTHER, SELFPAY ==
--- NOTE | 2022-04-26 11:01 | VDLE_ITS ---
Reason For Study: Swelling RIGHT CFV is compressible, spontaneous, phasic, competent and demonstrates normal augmentation. FV is compressible, spontaneous, phasic, competent and demonstrates normal augmentation. POP V is compressible, spontaneous, phasic, competent and demonstrates normal augmentation. T/P Trunk is compressible. PTV is compressible. RT PerV is compressible. Acute superficial vein thrombosis is noted in the right GSV prox calf. Thrombus filled varicose veins noted in the right prox calf. Procedure This is a venous duplex using B-mode, color flow and spectral Doppler. Exam performed in department. A preliminary report was called and/or faxed to Shreya @ PCP: Dr. Choudhury's office. Patient seen in ED 04/26/2022. VL/Venous Duplex US, Unilateral Interpretation Summary There is no evidence of right lower extremity deep vein thrombosis. Superficial thrombophlebitis right great saphenous vein and varicosities in the proximal calf Ordering Physician: Sallie Bernal Referring Physician: Tri Choudhury Performed By: Olga Lidia Olivas RVT
== END | disposition home or self-care (01) ==
LOC: CVS 11:00
PROVIDERS: PCP Family Medicine; Referring Provider Emergency Medicine; Visit Provider Emergency Medicine
DX: M79.89 Other specified soft tissue disorders (principal)
CPT/HCPCS: 93971

== ENCOUNTER → 2022-05-07 | Outpatient (CLI) | payer OTHER, SELFPAY ==
[2022-05-07 11:15] LABS: Absolute Lymphocyte Count 2.28 X10^3/uL (0.83-4.51); Basophil# 0.03 X10^3/uL; Basophil% 0.5 % (0-1); Eosinophils% 3.3 % (0-5); Hematocrit 41.2 % (40-54); Hemoglobin 14.4 g/dL (13.0-16.5); Lymphocyte # 2.28 X10^3/ul (0.83-4.51); Lymphocyte % 37.7 % (19-41); Mean Corpuscular Hgb 31.2 pg (27.0-32.0); Mean Corpuscular Volume 89.2 fL (80-94); Mean Platelet Vol. 8.5 fl (6.2-12.0); Monocyte# 0.54 X10^3/uL; Monocyte% 8.9 % (0-10); NRBC Flagged by Analyzer 0 % (0-5); Neutrophil # 2.97 X10^3/uL (2.7-7.7); Neutrophil % 49.3 % (47-70); Platelet Count 247 K/mm3 (150-450); RBC Distribution Width CV 14.6 % (11.6-14.6); RBC Distribution Width SD 47.6 fl (35.1-43.9); Red Blood Count 4.62 M/mm3 (4.6-6.2)
[2022-05-07 11:45] LABS: ALB/GLOB Ratio 0.9 RATIO (0.9-2.4); AST(SGOT) 13 U/L (15-37); Alanine Aminotransfer ALT/SGPT 26 U/L (16-61); Albumin, Serum 3.2 g/dL (3.2-5.0); Alkaline Phosphatase 76 U/L (45-117); Amylase 55 U/L (25-115); Anion Gap 4 (5-15); BUN 15 mg/dL (7-18); BUN/Creat Ratio 16.2 RATIO (10-20); Calcium,Total 8.6 mg/dL (8.5-10.1); Chloride 105 mmol/L (98-107); Creatinine, Serum 0.93 mg/dL (0.70-1.30); EST Glomerular Filtration Rate 88 mL/min (>60); Est Glom Filt Rate - Afr Amer 107 mL/min (>60); Globulin 3.7 g/dL (2.2-4.2); Glucose 167 mg/dL (74-106); Lipase 67 U/L (73-393); Potassium 4.1 mmol/L (3.5-5.1); Protein, Total 6.9 g/dL (6.4-8.2); Sodium Level 137 mmol/L (136-145)
== END | disposition home or self-care (01) ==
LOC: LAB 10:52
PROVIDERS: PCP Family Medicine; Referring Provider Internal Medicine Gastroenterology; Visit Provider Internal Medicine Gastroenterology
DX: K76.0 Fatty (change of) liver, not elsewhere classified (principal); K85.12 Biliary acute pancreatitis with infected necrosis; K83.2 Perforation of bile duct
CPT/HCPCS: 36415; 80053; 82150; 83690; 85025

== ENCOUNTER 2022-06-05 00:17 | Emergency (ER) | payer OTHER, SELFPAY ==
[2022-06-05 00:18] VITALS: BP 175/82; PULSE 65; RESP 18; TEMP 36.8; O2SAT 97; BMI 48.7
--- NOTE | 2022-06-05 00:46 | CT_ITS ---
INDICATION: Mid abdominal pain. Patient had ERCP on Tuesday. EXAMINATION: CT Abdomen And Pelvis W/ Contrast Injection TECHNIQUE: Helically acquired images were obtained of the abdomen and pelvis following IV contrast. 2-D reconstructions reviewed. A radiation dose optimization technique was used for this scan. IV Contrast dosage and agent: 100 mL [id number] Oral contrast: None. COMPARISON: Contrast enhanced CT abdomen and pelvis from 03/12/2022. FINDINGS: LOWER CHEST: Minimal right basilar atelectatic changes. Small hiatal hernia. Heart size within normal limits. LIVER: Mild fatty infiltration of liver. Mild residual intrahepatic pneumobilia. GALLBLADDER AND BILIARY TREE: Interval removal of percutaneous cholecystostomy tube. Small gauge stent remains within common bile duct extending into proximal duodenum. Small amount of residual pneumobilia. Small lobulated loculated fluid collection in gallbladder fossa containing small amount of gas and/or pneumobilia. Collection measures approximately 6.5 cm length and 2 cm diameter, increased in size since prior exam. PANCREAS: No discrete mass or peripancreatic edema. SPLEEN: Normal size without focal cystic or solid mass. ADRENAL GLANDS: Unremarkable. KIDNEYS AND URETERS: Horseshoe kidney anatomic variant again noted. No hydronephrosis. Stable small low-attenuation, simple-appearing right renal cyst requiring no additional follow-up. PERITONEUM: Trace residual free fluid adjacent to gallbladder fossa. No free peritoneal air. RETROPERITONEUM: No retroperitoneal mass or pathologic fluid collection. BOWEL: Normal appendix within right lower quadrant. No abnormal stomach or bowel distension. No focal inflammatory change. LYMPH NODES: No enlarged mesenteric or retroperitoneal lymph nodes. VESSELS: Mild atherosclerosis. URINARY BLADDER: Unremarkable as visualized. REPRODUCTIVE ORGANS: No pelvic masses. ABDOMINAL WALL: Moderate size right inguinal fat hernia. Right upper abdominal wall scarring. BONES: Degenerative changes along spine. CT/Abdomen/Pelvis W IV Cont ONLY IMPRESSION: 1. Common bile duct stent in place with mild residual pneumobilia. Small loculated fluid collection containing gas at gallbladder fossa has increased size in the interval. Prior report with history of cholecystectomy but collection may represent a gallbladder remnant, biloma, biliary fistula or possible small abscess. Correlate with previous operative reports and ERCP report. 2. Other nonurgent findings within body of report. Electronically Signed: Lauri Reza MD at 2:42 EDT ,
[2022-06-05] MEDS: 0.9% Normal Saline 1,000 ML 999 ML IV (00:58)
[2022-06-05 01:03] LABS: Absolute Lymphocyte Count 2.62 X10^3/uL (0.83-4.51); Absolute Neutrophil Count 4.9 X10^3/uL (2.0-7.7); Basophil# 0.05 X10^3/uL; Basophil% 0.6 % (0-1); Eosinophil# 0.34 X10^3/uL; Eosinophils% 3.9 % (0-5); Hematocrit 45.8 % (40-54); Hemoglobin 15.6 g/dL (13.0-16.5); Lymphocyte # 2.62 X10^3/ul (0.83-4.51); Lymphocyte % 29.8 % (19-41); Mean Corp Hgb Conc 34.1 g/dL (32-36); Mean Corpuscular Hgb 30.5 pg (27.0-32.0); Mean Corpuscular Volume 89.6 fL (80-94); Mean Platelet Vol. 8.7 fl (6.2-12.0); Monocyte# 0.86 X10^3/uL; Monocyte% 9.8 % (0-10); NRBC Flagged by Analyzer 0 % (0-5); Neutrophil # 4.88 X10^3/uL (2.7-7.7); Neutrophil % 55.3 % (47-70); Platelet Count 298 K/mm3 (150-450); RBC Distribution Width CV 13.9 % (11.6-14.6); RBC Distribution Width SD 45.9 fl (35.1-43.9); Red Blood Count 5.11 M/mm3 (4.6-6.2); White Blood Count 8.8 K/mm3 (4.4-11.0)
[2022-06-05 01:06] VITALS: BP 154/75; PULSE 56; RESP 18; TEMP 36.8; O2SAT 97
[2022-06-05] MEDS: Ketorolac 30 MG/ML Syringe IV (01:07)
[2022-06-05 01:17] LABS: AST(SGOT) 15 U/L (15-37); Alanine Aminotransfer ALT/SGPT 36 U/L (16-61); Albumin, Serum 3.4 g/dL (3.2-5.0); Alkaline Phosphatase 71 U/L (45-117); Anion Gap 9 (5-15); BUN 24 mg/dL (7-18); BUN/Creat Ratio 22.4 RATIO (10-20); Chloride 106 mmol/L (98-107); Creatinine, Serum 1.07 mg/dL (0.70-1.30); EST Glomerular Filtration Rate 75 mL/min (>60); Est Glom Filt Rate - Afr Amer 90 mL/min (>60); Estimated Creatinine Clearance 74.86 ml/min; Globulin 3.9 g/dL (2.2-4.2); Glucose 140 mg/dL (74-106); Lipase 60 U/L (73-393); Potassium 4.1 mmol/L (3.5-5.1); Protein, Total 7.3 g/dL (6.4-8.2); Sodium Level 139 mmol/L (136-145)
[2022-06-05 01:22] LABS: Lactic Acid 0.8 mmol/L (0.4-1.9)
[2022-06-05 02:35] VITALS: BP 133/55; PULSE 59; RESP 16; TEMP 36.8; O2SAT 97
[2022-06-05 02:36] VITALS: BP 133/55; PULSE 61; RESP 16; TEMP 36.8; O2SAT 97
--- NOTE | 2022-06-05 03:39 | EX.ED.DYSGE1 ---
HPI History of Present Illness Chief Complaint: Abd Pain Narrative Narrative: Patient is a 61-year-old male with past medical history of obstructive sleep apnea and recent acute cholecystitis requiring cholecystectomy. He developed a postoperative bile leak and had a ERCP with stent placement. Following this he developed acute pancreatitis and was readmitted to the hospital. Patient states this occurred in March of this year. He states he was doing well but recently saw another surgeon and had a repeat ERCP with stent placement on Tuesday. He states that roughly 2 hours prior to arrival while driving his car he developed midepigastric abdominal pain that felt similar nature to his past episode of acute pancreatitis. He denies any fevers or chills or injury prior to the pain beginning. He states he has concern he is developed pancreatitis once again because of the similar pain and circumstances and therefore comes in for evaluation. [facility] Medical History Acute cholecystitis Arthritis BiPAP (biphasic positive airway pressure) dependence Chronic knee pain History of stress test Morbid obesity Non-smoker ABDULKADIR (obstructive sleep apnea) Pancreatitis Shortness of breath on exertion Home Medications magnesium 250 mg tablet 250 mg PO DAILY supplement 03/09/22 [History Last Taken 03/12/22] omega 7-pvb-ldz-fish oil 300 mg-1,000 mg capsule (Fish Oil) 1 cap PO DAILY supplement 03/09/22 [History Last Taken 03/12/22] amlodipine 10 mg tablet 10 mg PO DAILY #30 tabs 03/18/22 [Rx Last Taken Unknown] lisinopril 20 mg tablet 20 mg PO DAILY #30 tabs 03/18/22 [Rx Last Taken Unknown] Allergy/AdvReac Type Severity Reaction Status Date / Time No Known Allergies Allergy Verified 06/05/22 01:01 Family History Mother Asthma Diabetes Father Colon cancer Sister Cancer Liver cancer Brother Diabetes Surgical History History of cholecystectomy History of surgery of liver Status post cholecystectomy Social History Smoking Status: Never smoker alcohol intake: never ROS ROS ED Constitutional Constitutional ED: Denies chills or fever(s) ENT ENT ED: Denies sore throat Cardiovascular Cardiovascular: Denies chest pain Respiratory/Chest Respiratory/Chest: Denies cough or dyspnea Gastrointestinal Gastrointestinal: Reports abdominal pain; Denies diarrhea, nausea or vomiting Genitourinary Genitourinary ED: Denies dysuria or hematuria Musculoskeletal Musculoskeletal: Denies myalgias Integumentary Denies rash Neurologic Neurologic: Denies headache(s) Hematologic/Lymphatic Hematologic/Lymphatic: Denies easy bleeding or easy bruising EXAM Physical Exam Const Vital Signs: 06/05/22 00:18 06/05/22 01:06 06/05/22 02:35 Temperature 98.3 F 98.3 F 98.3 F Temperature Source Temporal Oral Oral Pulse Rate 65 56 L 59 L Respiratory Rate 18 18 16 Blood Pressure 175/82 H 154/75 H 133/55 H Blood Pressure Mean 113 101 81 Pulse Ox 97 97 97 Oxygen Delivery Method Room Air Room Air Room Air 06/05/22 02:36 Temperature 98.3 F Temperature Source Oral Pulse Rate 61 Respiratory Rate 16 Blood Pressure 133/55 H Blood Pressure Mean 81 Pulse Ox 97 Oxygen Delivery Method Room Air Positive well nourished, well developed and obese General Appearance ED: well developed Nutritional Appearance: obese HEENT Reports moist mucous membranes Eyes PERRL and EOMs intact bilaterally General Eye ED: Negative for scleral icterus Neck supple and No no JVD Resp normal respiratory effort and clear to auscultation bilaterally Cardio regular rate and regular rhythm Rate: other Other Details: Radial pulses are plus 2 out of 4 bilaterally are equal and symmetric. Carotid pulses are equal and symmetric as well GI non-distended GI Narrative: Abdomen is soft and nondistended with normoactive bowel sounds. There is pain on palpation in the midepigastric region without voluntary guarding or rigidity. No pulsatile mass or fluid wave Auscultation: normoactive bowel sounds Palpation: soft Extremity normal to inspection Neuro oriented x3 and CN's II-XII intact bilaterally Sensorium / Orientation: alert Psych mental status grossly normal Skin no rashes or lesions noted Skin Narrative: No jaundice noted MDM MDM MDM Narrative Medical decision making narrative: Patient presented to the ER hypertensive but otherwise with stable vitals. With his recent surgical history and previous pancreatitis following a stent placement there is concern for this once again. Therefore basic labs and a CT scan with IV contrast were ordered. Patient is white count is normal his lactic acid is normal liver enzymes are not elevated and lipase is not elevated either. The CT scan showed a increasing fluid collection in the gallbladder fossa but was unsure if this was related to persistent bile leak or developing possible infection. Secondary to this I contacted the patient's manager outreach who performed the recent ERCP with stent placement. The manager outreach states that the changes on CAT scan are normal based on his postoperative bile leak and that with stable vitals and normal labs there is no concern for infection and does not believe he needs evaluated any further in the hospital. The patient was treated with Toradol and fluids and had resolution of his pain. On reevaluation the abdomen is soft and nonsurgical and patient remains pain-free. Therefore at this time his pain has resolved labs revealed no acute findings and the GI physician does not have concern about the increased fluid in the gallbladder fossa he can be discharged and follow-up with the surgeon for repeat evaluation. Lab Data Attestation: I reviewed the patient's lab results. Labs: Laboratory Results - last 24 hr 06/05/22 06/05/22 06/05/22 00:53 00:53 00:53 WBC 8.8 RBC 5.11 Hgb 15.6 Hct 45.8 MCV 89.6 MCH 30.5 MCHC 34.1 RDW Std Deviation 45.9 H RDW Coeff of Reshma 13.9 Plt Count 298 MPV 8.7 Immature Gran % (Auto) 0.600 Neut % (Auto) 55.3 Lymph % (Auto) 29.8 Christian % (Auto) 9.8 Eos % (Auto) 3.9 Baso % (Auto) 0.6 Absolute Neuts (auto) 4.9 Absolute Lymphs (auto) 2.62 Nucleated RBC % 0 Sodium 139 Potassium 4.1 Chloride 106 Carbon Dioxide 24.0 Anion Gap 9 BUN 24 H Creatinine 1.07 Estim Creat Clear Calc 74.86 Est GFR (MDRD) Af Amer 90 Est GFR (MDRD) Non-Af 75 BUN/Creatinine Ratio 22.4 H Glucose 140 H Lactic Acid 0.8 Calcium 9.0 Total Bilirubin 0.70 Direct Bilirubin 0.20 AST 15 ALT 36 Alkaline Phosphatase 71 Total Protein 7.3 Albumin 3.4 Globulin 3.9 Lipase 60 L Radiography Diagnostic Testing: Clinical Impression(s) from Imaging Studies Abdomen/Pelvis CT 06/05/22 00:46 IMPRESSION: 1. Common bile duct stent in place with mild residual pneumobilia. Small loculated fluid collection containing gas at gallbladder fossa has increased size in the interval. Prior report with history of cholecystectomy but collection may represent a gallbladder remnant, biloma, biliary fistula or possible small abscess. Correlate with previous operative reports and ERCP report. 2. Other nonurgent findings within body of report. Electronically Signed: Lauri Reza MD at 2:42 EDT , Discharge Plan Triage Chief Complaint: Abd Pain ED Provider: Roberto Beasley Dx/Rx/DC Orders Clinical Impression: Bile leak, postoperative, Status post cholecystectomy, Abdominal pain Instructions: Abdominal Pain Prescriptions: No Action magnesium 250 mg Tablet 250 mg PO DAILY omega 4-dyt-wce-fish oil [Fish Oil] 300-1,000 mg Capsule 1 cap PO DAILY lisinopril 20 mg Tablet 20 mg PO DAILY Qty: 30 0RF amlodipine 10 mg Tablet 10 mg PO DAILY Qty: 30 0RF Primary Care Provider: Tri Choudhury Referrals: Tri Choudhury MD [Primary Care Provider] - Renetta Alex MD [Med Staff - Active Staff] - 3-5 Days Activity Restrictions/Additional Instructions: Please follow-up with your general surgeon as previously directed and take your home medications as previously directed as well. Please return to the ER should you have any further concerns Disposition Disposition: Home, Self Care
[2022-06-05 03:46] VITALS: BP 144/86; PULSE 79; RESP 18; O2SAT 97
== END 2022-06-05 03:46 | disposition home or self-care (01) ==
PROVIDERS: Emergency Provider Emergency Medicine; PCP Family Medicine; Visit Provider Emergency Medicine
DX: K91.89 Other postprocedural complications and disorders of digestive system (principal); E66.9 Obesity, unspecified; Z90.49 Acquired absence of other specified parts of digestive tract; G47.33 Obstructive sleep apnea (adult) (pediatric); Y83.8 Other surgical procedures as the cause of abnormal reaction of the patient, or of later complication, without mention of misadventure at the time of the procedure; K85.90 Acute pancreatitis without necrosis or infection, unspecified; K83.8 Other specified diseases of biliary tract
CPT/HCPCS: 74177; 80048; 80076; 83605; 83690; 85025; 96361; 96374; 99283; J7030; Q9967; A4216

== ENCOUNTER → 2022-08-18 | Outpatient (CLI) | payer OTHER, SELFPAY ==
[2022-08-18 11:32] LABS: Platelet Count 255 K/mm3 (150-450)
[2022-08-18 11:50] LABS: Partial Thromboplast Time 28.5 Seconds (24.1-36.2); Prothrombin Time (Protime)PT. 13.3 SECONDS (11.7-14.9)
== END | disposition home or self-care (01) ==
LOC: LAB 10:32
PROVIDERS: PCP Family Medicine; Visit Provider Internal Medicine Gastroenterology
DX: Z79.01 Long term (current) use of anticoagulants (principal); K85.90 Acute pancreatitis without necrosis or infection, unspecified; K83.8 Other specified diseases of biliary tract
CPT/HCPCS: 36415; 85049; 85610; 85730

== ENCOUNTER 2022-11-04 12:30 | Outpatient (RCR) | payer OTHER, SELFPAY ==
--- NOTE | 2022-09-23 14:13 | HP.PTEVAL_ITS ---
Patient's Visit Information WOOD CERDA is a 61 year old M referred to Physical Therapy by Dr. Tri Choudhury MD with a diagnosis of Right knee pain. Date of Evaluation: 09/23/22 Physical Therapist: Gregg Contreras - Visit Plan Frequency: 1-2x /Week Duration: 6 Weeks Plan: Continue with improving LE flexibility, LE strength, and balance. Use manual therapy and modalities as needed for pain control. - Subjective Pt. is a 61 y.o. male who has been having right knee pain for about a year with no specific injury that he is aware of. His PLOF includes no history of right knee pain in the past before this and has had left knee arthroscopic surgery in the past. He has not had any recent imaging of his right knee but had x-ray of his right ankle. He denies any numbness or tingling in his right leg. He denies any recent falls. Pt. has difficulty with standing longer than 50 minutes, walking longer than a block, squatting, walking on uneven ground, ascending/descending stairs, housework, yard work, and work activity. 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 His goal with physical therapy is to have less knee pain and be able to walk around better. He has had previous physical therapy for his left knee. Pt. denies any knee pain currently, at worst 9/10 and describes the pain as sharp. Pt. currently takes Advil as needed for pain. His PMH includes left knee arthroscopic surgery, fracture of right femur, torn liver, gall bladder removed, and right finger surgery. Pt. lives with his in split level home. His hobbies include bowling, visit with people, and going to softball games. - Objective Lumbar AROM- WNL for all motions and no pain. Hip PROM- WNL bilaterally. Left knee AROM flexion 120 degrees, extension -2 degrees. Right knee AROM flexion 112 degrees, extension -4 degrees. Left hip strength flexion 5/5, abduction 4+/5, adduction 5/5, extension 4+/5, knee flexion 5/5, knee extension 5/5, ankle DF 5/5, PF 5/5. Right hip strength flexion 5/5, abduction 4+/5, adduction 5/5, extension 4+/5, knee flexion 4/5, knee extension 4+/5, ankle DF 4+/5, PF 4+/5. Tandem stance right [30 secs], left [6 secs]. SLS right [2 secs], left [3 secs]. Special tests- Anterior drawer [-], Posterior drawer [-], Varus test [- ], Valgus test [-], Razia's [-], Straight leg raise [-], Well's leg raise [- ]. Gait- Pt. ambulates with supinated right foot and slight antalgic gait pattern. Stairs- Pt. ascends/descends stairs with step to gait pattern and unilateral handrail. - Balance/Special Test Scores Lower Extremity Functional Score: 43 - Goals Goal 1:: Pt. will be able to walk for at least 20 minutes with right knee pain < 3/10. Goal Time Frame: 4-6 Weeks Goal 2:: Pt. will be able to ascend/descend a flight of stairs with alternating step pattern and unilateral handrail. Goal Time Frame: 4-6 Weeks Goal 3:: Pt. will improve right LE strength to 4+/5 for all motions in order to complete ADL's and work activity. Goal Time Frame: 4-6 Weeks Goal 4:: Pt. will be able to squat with proper body mechanics and right knee pain < 3/10. Goal Time Frame: 4-6 Weeks Goal 5:: Pt. will rate right knee pain at worst at 5/10 with ADL's and work activity. Goal Time Frame: 4-6 Weeks Goal 6:: Pt. will improve LEFS score < 40% disability in order to improve ADL's. Goal Time Frame: 4-6 Weeks - Rehabilitation Potential Physical Therapy Diagnosis: Decreased LE flexibility, LE strength, balance, and pain Rehabilitation Potential: Good - Anticipated Interventions Patient/Client Instruction: Educate patient on: Condition, Plan of Care, Benefits of Fitness Program For the Purpose of:: To decrease pain, To improve ability to perform ADL's, To improve performance and independence with ADL's, To increase flexibility/ROM, To improve endurance, To improve balance, To improve tolerance to ADL's Therapeutic Exercise to Include: Strength training, Balance training, Flexibilty training, Gait and locomotor training, Active ROM Comment: Focus on improving LE flexibility, strength, and balance. For the Purpose of:: To decrease pain, To improve ability to perform ADL's, To improve performance and independence with ADL's, To improve endurance, To improve balance, To assume or resume ADL's, To improve tolerance to ADL's Functional Training to Include: ADL Training, Gait training For the Purpose of:: To decrease pain, To improve ability to perform ADL's, To improve performance and independence with ADL's, To increase flexibility/ROM, To assume or resume ADL's, To improve tolerance to ADL's Manual Therapy Techniques to Include: Soft tissue mobilization For the Purpose of:: To decrease pain, To improve ability to perform ADL's, To improve performance and independence with ADL's, To increase flexibility/ROM, To assume or resume ADL's, To improve tolerance to ADL's Orthotics: Shoe insert For the Purpose of:: To decrease pain, To improve ability to perform ADL's, To improve performance and independence with ADL's, To assume or resume ADL's, To improve tolerance to ADL's TENS: Yes IF ES: Yes Cryotherapy (ice pack, ice massage): Yes Thermo therapy (hot pack): Yes For the Purpose of:: To decrease pain, To improve ability to perform ADL's, To improve performance and independence with ADL's, To improve gait and locomotor functions, To assume or resume ADL's, To improve tolerance to ADL's Thank you for the opportunity to evaluate your patient. For Medicare and Medicare HMO plans, please review the plan of care and approve it. It will need to be FAXED BACK to us at [phone] for Medicare purposes. For Medicare only, by signing this I certify the plan of care. Please let me know if there are questions or concerns regarding this plan of care. Physician Signature: Date:
--- NOTE | 2022-11-04 13:26 | HP.PTREVAL ---
Dr. Tri Choudhury MD, It has been my pleasure to treat WOOD CERDA over the last 10 visits for Right knee pain. Please see the progress note below for an update on the physical therapy plan of care! Subjective: Pt. states that both his knees are still bothering him and he has pain in his upper hamstring area. He reports that he has seen about 5-10% improvement since starting physical therapy. He reports that he is trying to do his exercises at home which might be every other day. Pt. does not have a follow up with his doctor scheduled at this time. Objective/Function: Nacho has come to 10 sessions of physical therapy focusing on improving LE flexibility, strength, and balance. Reviewed pt. goals for therapy and he has partially met or not met most of his goals for therapy. Discussed with pt. at this time to follow up with his doctor which he was in agreement with. Pt. is to continue with his current HEP. Plan Plan: Will leave his chart open for a few weeks at this time and pt. is to follow up with his doctor. Will continue with LE strengthening and flexibility exercises if he returns to therapy. Balance/Gait/Functional tests - Balance/Special Test Scores Lower Extremity Functional Score: 40 Goals Goal 1:: Pt. will be able to walk for at least 20 minutes with right knee pain < 3/10. Goal Time Frame: 4-6 Weeks Goal Progress: Progressing Goal 2:: Pt. will be able to ascend/descend a flight of stairs with alternating step pattern and unilateral handrail. Goal Time Frame: 4-6 Weeks Goal Progress: Progressing Goal 3:: Pt. will improve right LE strength to 4+/5 for all motions in order to complete ADL's and work activity. Goal Time Frame: 4-6 Weeks Goal 4:: Pt. will be able to squat with proper body mechanics and right knee pain < 3/10. Goal Time Frame: 4-6 Weeks Goal Progress: Progressing Goal 5:: Pt. will rate right knee pain at worst at 5/10 with ADL's and work activity. Goal Time Frame: 4-6 Weeks Goal Progress: Progressing Goal 6:: Pt. will improve LEFS score < 40% disability in order to improve ADL's. Goal Time Frame: 4-6 Weeks Goal Progress: Not Progressing Anticipated Interventions Patient/Client Instruction: Educate patient on: Condition, Plan of Care, Benefits of Fitness Program For the Purpose of:: To decrease pain, To improve ability to perform ADL's, To improve performance and independence with ADL's, To increase flexibility/ROM, To improve endurance, To improve balance, To improve tolerance to ADL's Therapeutic Exercise to Include: Strength training, Balance training, Flexibilty training, Gait and locomotor training, Active ROM Comment: Focus on improving LE flexibility, strength, and balance. For the Purpose of:: To decrease pain, To improve ability to perform ADL's, To improve performance and independence with ADL's, To improve endurance, To improve balance, To assume or resume ADL's, To improve tolerance to ADL's Functional Training to Include: ADL Training, Gait training For the Purpose of:: To decrease pain, To improve ability to perform ADL's, To improve performance and independence with ADL's, To increase flexibility/ROM, To assume or resume ADL's, To improve tolerance to ADL's Manual Therapy Techniques to Include: Soft tissue mobilization For the Purpose of:: To decrease pain, To improve ability to perform ADL's, To improve performance and independence with ADL's, To increase flexibility/ROM, To assume or resume ADL's, To improve tolerance to ADL's Orthotics: Shoe insert For the Purpose of:: To decrease pain, To improve ability to perform ADL's, To improve performance and independence with ADL's, To assume or resume ADL's, To improve tolerance to ADL's TENS: Yes IF ES: Yes Cryotherapy (ice pack, ice massage): Yes Thermo therapy (hot pack): Yes For the Purpose of:: To decrease pain, To improve ability to perform ADL's, To improve performance and independence with ADL's, To improve gait and locomotor functions, To assume or resume ADL's, To improve tolerance to ADL's Please do not hesitate to contact me at [phone] by phone or if you have questions or concerns regarding this new plan of care! Sincerely, Gregg Contreras
--- NOTE | 2023-01-20 11:46 | HP.PT.NRP ---
WOOD CERDA was seen in my office for initial evaluation on 09/23/22. The following Plan of Care was established for this patient: Initial Frequency: 1-2x /Week Initial Duration: 6 Weeks Patient/Client Instruction: Educate patient on: Condition, Plan of Care, Benefits of Fitness Program For the Purpose of:: To decrease pain, To improve ability to perform ADL's, To improve performance and independence with ADL's, To increase flexibility/ROM, To improve endurance, To improve balance, To improve tolerance to ADL's Therapeutic Exercise to Include: Strength training, Balance training, Flexibilty training, Gait and locomotor training, Active ROM For the Purpose of:: To decrease pain, To improve ability to perform ADL's, To improve performance and independence with ADL's, To improve endurance, To improve balance, To assume or resume ADL's, To improve tolerance to ADL's Functional Training to Include: ADL Training, Gait training For the Purpose of:: To decrease pain, To improve ability to perform ADL's, To improve performance and independence with ADL's, To increase flexibility/ROM, To assume or resume ADL's, To improve tolerance to ADL's Manual Therapy Techniques to Include: Soft tissue mobilization For the Purpose of:: To decrease pain, To improve ability to perform ADL's, To improve performance and independence with ADL's, To increase flexibility/ROM, To assume or resume ADL's, To improve tolerance to ADL's Orthotics: Shoe insert For the Purpose of:: To decrease pain, To improve ability to perform ADL's, To improve performance and independence with ADL's, To assume or resume ADL's, To improve tolerance to ADL's TENS: Yes IF ES: Yes Cryotherapy (ice pack, ice massage): Yes Thermo therapy (hot pack): Yes For the Purpose of:: To decrease pain, To improve ability to perform ADL's, To improve performance and independence with ADL's, To improve gait and locomotor functions, To assume or resume ADL's, To improve tolerance to ADL's This patient was last seen in our office 11/04/22. Pertinent comments regarding their Physical therapy will appear below: Pt seen 10 visits of POC and was not improving greatly and sent back to doctor. He was to call if he needed to return after that visit. at this point, it has been over 2 months and I will discontinue form our care per last plan. At this point I will be discontinuing this patient from physical therapy. I would be happy to see this patient again in the future if found appropriate by the physician. Thank you! Oscar Tubbs, DPT, OCS, CSCS Balance/Gait/Functional tests - Balance/Special Test Scores Lower Extremity Functional Score: 40
== END 2022-11-04 19:00 | disposition home or self-care (01) ==
LOC: PT 12:30
PROVIDERS: PCP Family Medicine; Referring Provider Family Medicine; Visit Provider Family Medicine
DX: M25.569 Pain in unspecified knee (principal)
CPT/HCPCS: 97110; 97140; 97162; 97164

== ENCOUNTER → 2023-09-29 | Outpatient (CLI) | payer OTHER, SELFPAY ==
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
[2023-09-29 11:32] LABS: Absolute Lymphocyte Count 1.81 X10^3/uL (0.83-4.51); Absolute Neutrophil Count 5.1 X10^3/uL (2.0-7.7); Basophil# 0.03 X10^3/uL; Basophil% 0.4 % (0-1); Eosinophil# 0.18 X10^3/uL; Eosinophils% 2.3 % (0-5); Hematocrit 43.4 % (40-54); Hemoglobin 14.3 g/dL (13.0-16.5); Lymphocyte # 1.81 X10^3/ul (0.83-4.51); Mean Corp Hgb Conc 32.9 g/dL (32-36); Mean Corpuscular Hgb 28.8 pg (27.0-32.0); Mean Corpuscular Volume 87.3 fL (80-94); Mean Platelet Vol. 8.6 fl (6.2-12.0); Monocyte% 8.9 % (0-10); NRBC Flagged by Analyzer 0 % (0-5); Neutrophil # 5.12 X10^3/uL (2.7-7.7); Neutrophil % 65.1 % (47-70); Platelet Count 335 K/mm3 (150-450); RBC Distribution Width CV 14.6 % (11.6-14.6); RBC Distribution Width SD 46.4 fl (35.1-43.9); Red Blood Count 4.97 M/mm3 (4.6-6.2); White Blood Count 7.9 K/mm3 (4.4-11.0)
[2023-09-29 11:57] LABS: ALB/GLOB Ratio 0.8 RATIO (0.9-2.4); AST(SGOT) 16 U/L (15-37); Alanine Aminotransfer ALT/SGPT 25 U/L (16-61); Albumin, Serum 3.2 g/dL (3.2-5.0); Alkaline Phosphatase 83 U/L (45-117); Anion Gap 2 (5-15); BUN 14 mg/dL (7-18); BUN/Creat Ratio 17.2 RATIO (10-20); Calcium,Total 9.2 mg/dL (8.5-10.1); Chloride 108 mmol/L (98-107); Cholesterol 134 mg/dL (200); Creatinine, Serum 0.82 mg/dL (0.70-1.30); EST Glomerular Filtration Rate 102 mL/min (>60); Est Glom Filt Rate - Afr Amer 123 mL/min (>60); Globulin 4.2 g/dL (2.2-4.2); Glucose 112 mg/dL (74-106); High Density Lipoprotein 46 mg/dL; Potassium 4.2 mmol/L (3.5-5.1); Protein, Total 7.4 g/dL (6.4-8.2); Sodium Level 137 mmol/L (136-145); Triglycerides 65 mg/dL; Very Low Density Lipoprotein 13 mg/dL (5-40)
== END | disposition home or self-care (01) ==
PROVIDERS: PCP Family Medicine; Referring Provider Nurse Practitioner Family; Visit Provider Nurse Practitioner Family
DX: R10.11 Right upper quadrant pain (principal); E78.5 Hyperlipidemia, unspecified
CPT/HCPCS: 36415; 76705; 80053; 80061; 85025

== ENCOUNTER → 2023-12-13 | Outpatient (CLI) | payer OTHER, SELFPAY ==
--- NOTE | 2023-12-13 15:15 | RAD_ITS ---
INDICATION: R THIGH PAIN EXAMINATION/TECHNIQUE: X-RAY - XR Spine Lumbar Min 4 Views COMPARISON: No relevant prior comparison study available FINDINGS: VERTEBRAE: Preserved vertebral body height. No fracture. No spondylolisthesis. Preservation of the normal lumbar lordosis. There is multilevel endplate spondylosis. No significant facet arthropathy. DISCS: There is multilevel degenerative disc disease. INCLUDED ABDOMEN: Included bowel gas pattern is non-obstructive. RAD/L/S Spine Min 4 Views IMPRESSION: Multilevel degenerative changes. Electronically Signed: Ale Riley MD at 9:05 EDT ,
== END | disposition home or self-care (01) ==
LOC: RAD 15:10
PROVIDERS: PCP Family Medicine; Referring Provider Family Medicine; Visit Provider Family Medicine
DX: M54.9 Dorsalgia, unspecified (principal)
CPT/HCPCS: 72110

== ENCOUNTER 2024-02-07 09:14 | Outpatient (RCR) | payer OTHER, SELFPAY | END 2024-02-10 23:59 | LOC: NS 09:14 | PROVIDERS: PCP Family Medicine; Referring Provider Family Medicine; Visit Provider Family Medicine | DX: Z71.3 Dietary counseling and surveillance (principal); E66.01 Morbid (severe) obesity due to excess calories; Z68.43 Body mass index [BMI] 50.0-59.9, adult | CPT/HCPCS: 97802 ==

== ENCOUNTER 2024-02-27 08:26 | Outpatient (RCR) | payer OTHER, SELFPAY | END 2024-03-11 23:59 | LOC: NS 08:26 | PROVIDERS: PCP Family Medicine; Referring Provider Family Medicine; Visit Provider Family Medicine | DX: Z71.3 Dietary counseling and surveillance (principal); E66.01 Morbid (severe) obesity due to excess calories; Z68.43 Body mass index [BMI] 50.0-59.9, adult | CPT/HCPCS: 97803 ==

== ENCOUNTER 2024-03-21 10:01 | Outpatient (RCR) | payer OTHER, SELFPAY | END 2024-04-11 23:59 | LOC: NS 10:01 | PROVIDERS: PCP Family Medicine; Referring Provider Family Medicine; Visit Provider Family Medicine | DX: Z71.3 Dietary counseling and surveillance (principal); E66.01 Morbid (severe) obesity due to excess calories; Z68.43 Body mass index [BMI] 50.0-59.9, adult | CPT/HCPCS: 97803 ==

== ENCOUNTER 2024-06-11 09:30 | Outpatient (RCR) | payer OTHER, SELFPAY | END 2024-06-11 23:59 | LOC: NS 09:30 | PROVIDERS: PCP Family Medicine; Referring Provider Family Medicine; Visit Provider Family Medicine | DX: Z71.3 Dietary counseling and surveillance (principal); E66.01 Morbid (severe) obesity due to excess calories; Z68.43 Body mass index [BMI] 50.0-59.9, adult | CPT/HCPCS: 97803 ==

== ENCOUNTER 2024-07-11 09:21 | Outpatient (RCR) | payer OTHER, SELFPAY | END 2024-07-12 23:59 | LOC: NS 09:21 | PROVIDERS: PCP Family Medicine; Referring Provider Family Medicine; Visit Provider Family Medicine | DX: Z71.3 Dietary counseling and surveillance (principal); E66.01 Morbid (severe) obesity due to excess calories; Z68.43 Body mass index [BMI] 50.0-59.9, adult | CPT/HCPCS: 97803 ==

== ENCOUNTER 2024-08-07 10:57 | Outpatient (RCR) | payer OTHER, SELFPAY | END 2024-08-11 23:59 | LOC: NS 10:57 | PROVIDERS: PCP Family Medicine; Referring Provider Family Medicine; Visit Provider Family Medicine | DX: Z71.3 Dietary counseling and surveillance (principal); E66.01 Morbid (severe) obesity due to excess calories; Z68.43 Body mass index [BMI] 50.0-59.9, adult | CPT/HCPCS: 97803 ==

== ENCOUNTER 2024-11-08 09:18 | Outpatient (RCR) | payer OTHER, SELFPAY | END 2024-11-09 23:59 | LOC: NS 09:18 | PROVIDERS: PCP Family Medicine; Referring Provider Family Medicine; Visit Provider Family Medicine | DX: Z71.3 Dietary counseling and surveillance (principal); E66.01 Morbid (severe) obesity due to excess calories; Z68.43 Body mass index [BMI] 50.0-59.9, adult | CPT/HCPCS: 97803 ==

== ENCOUNTER 2024-12-04 10:00 | Outpatient (RCR) | payer OTHER, SELFPAY | END 2024-12-10 23:59 | LOC: NS 10:00 | PROVIDERS: PCP Family Medicine; Referring Provider Family Medicine; Visit Provider Family Medicine | DX: Z71.3 Dietary counseling and surveillance (principal); E66.01 Morbid (severe) obesity due to excess calories; Z68.43 Body mass index [BMI] 50.0-59.9, adult | CPT/HCPCS: 97803 ==

== ENCOUNTER 2025-01-07 09:59 | Outpatient (RCR) | payer OTHER, SELFPAY | END 2025-01-09 23:59 | LOC: NS 09:59 | PROVIDERS: PCP Family Medicine; Referring Provider Family Medicine; Visit Provider Family Medicine | DX: Z71.3 Dietary counseling and surveillance (principal); E66.01 Morbid (severe) obesity due to excess calories; Z68.42 Body mass index [BMI] 45.0-49.9, adult | CPT/HCPCS: 97803 ==

== ENCOUNTER 2025-02-12 08:30 | Outpatient (RCR) | payer OTHER, SELFPAY | END 2025-03-11 23:59 | LOC: NS 08:30 | PROVIDERS: PCP Family Medicine; Referring Provider Family Medicine; Visit Provider Family Medicine | DX: Z71.3 Dietary counseling and surveillance (principal); E66.01 Morbid (severe) obesity due to excess calories; Z68.42 Body mass index [BMI] 45.0-49.9, adult | CPT/HCPCS: 97803 ==

== ENCOUNTER → 2025-02-13 | Outpatient (CLI) | payer OTHER, SELFPAY ==
--- OUTSIDE RECORDS SUMMARY | 2025-02-13 06:45 | XMS RPT_ITS | CCD ---
Author Organization [facility] ion [facility] Care Team Providers Care Film Inspector Name Role Phone LUIS KLINE Admitting Unavailable LUIS KLINE Attending Unavailable LUIS KLINE Primary Care Unavailable [facility]AS[facility], [facility] Admitting Unavaila pam HOFFMAN, [facility] Attending Unavaila pam HOFFMAN, [facility] Primary Care Unavaila ble Dr. Tri Choudhury Primary Care Provider Dr. Lizbeth Khalil Emergency Provider [phone] Renetta Alex Admit Provider Dr. Renetta Alex Other Provider Dr. Liliane Arango Attending Provider Dr. Santino Gauthier Attending Provider Dr. Santino Gauthier Other Provider Unavailable Primary Care Provider UnavailDr. Pankaj Chamberlain Attending Provider Dr. Renetta Alex Referring Provider Dr. Tri Choudhury Referring Provider Dr. Pankaj Leung Other Provider [phone] Dr. Roberto Beasley Emergency Provider Dr. Gregg Gongora Other Provider John SENIOR SUPPLIER QUALITY ENGINEER, [place] Acuña Attending Provider Dr. Gregg Gongora Attending Provider Dr. Gregg Gongora Attending Provider REFERRING, MAXINE RODRIGUEZ ID Primary Care Physician Unav ailable Dr. Alex Benavidez Attending Provider [phone] Dr. Sallie Bernal Referring Provider Unavailable Primary Care Provider Unavailabl e ALEX, RENETTA MIHIR Referring Unavailable ALEX, RENETTA MIHIR Attending Unavailable ALEX, RENETTA MIHIR Referring Unavailable ALEX, RENETTA MIHIR Attending Unavailable ALEX, RENETTA MIHIR Referring Unavailable KOLE MANCIA Attending Unavailable ALEX, RENETTA MIHIR Referring Unavailable MEG, CORNELIO BARNEY Referring Unavaila ble MEG, CORNELIO BARNEY Referring Unavaila ble ALEX, RENETTA ASH Attending Unavailable Dr. Tri Choudhury Primary Care Provider Dr. Alex Benavidez Attending Provider Dr. Sallie Bernal Referring Provider [phone] Dr. Tri Choudhury Referring Provider Yarelis SENIOR SUPPLIER QUALITY ENGINEER, SENIOR SUPPLIER QUALITY ENGINEER-C Julita Attending Provider TRI CHOUDHURY Primary Care Physician Unknown, Referring Provider Unavailable Unav ailable Unavailable Unavailable Tri Choudhury Unavailable Tri Choudhury Unavailable Fritz Zabala Unavailable Unavailable Chavez Richardson Unavailable Unavailable Unavailable Dr. Tri Choudhury Primary Care Yonatan Choudhury, Dr. Tri Oreilly Referring Unavai lable Dylan, Dr. Chavez Carrion Attending Mindavaadams labjosé miguel Weaver, Dr. Cornelio Pina Referring Unavaila ble UNKNOWN, PCP Primary Care Unavailable Dylan, Dr. Chavez Carrion Attending Yonatan Choudhury, Dr. Tri Oreilly Primary Care Yonatan Richardson, Dr. Chavez Carrion Attending Yonatan Richardson, Dr. Chavez Carrion Referring Mindavaadams Choudhury, Dr. Tri Oreilly Primary Care FRITZ Moraes Attending Unavailable Dylan, Dr. Chavez Carrion Admitting Yonatan Weaver, Dr. Cornelio Pina Referring Unavaila pam Choudhury, Dr. Bartlett Afia Primary Care Yonatan Richardson, Dr. Chavez Carrion Attending Yonatan QUEZADA MD, MD SAME Dalton Attending Unavailable [facility] Primary Care Unavailable LATOYA HERRERA MD Attending Unavail able DR LILLY DELGADO MD Consulting Unavailable [facility] Primary Care Unavailable KELSI GODOY MD Attending Unavailable [facility] Attending Unavailable [facility] Primary Care Unavailable [facility] Referring Unavailable PILAR ARNDT MD [facility] Dalton Attending Unavailable [facility] Primary Care Unavailable PILAR ARNDT MD [facility] Dalton Attending Unavailable [facility] Primary Care Unavailable CORNELIO WEAVER MD Attending Unavailable DR LILLY DELGADO MD Admitting Unavailable [facility] Primary Care Unavailable SIMON MARK MD Attending Unavailable KENZIE WALDRON MD Consulting Unavailable PAVAN DALY DO Consulting Unavailable JESUSITA DORANTES MD Consulting Unavailable CORNELIO WEAVER MD Consulting Unavailable MD PAULA QUEZADA MD Consulting Unavailable OSMAR STRATTON, DAMIAN Consulting UnavailCORNELIO Rios MD Attending Unavailable PHYSICIAN, NONE Primary Care Unavailable CHAVEZ SINCLAIR MD Consulting Unavailable MARRY BAUMAN MD Consulting Unavailable CORNELIO WEAVER MD Attending Unavailable LOPEZ JANE MD Consulting Unavailable WENDOVER SVETAMICHELLE, NANO Attending Unavailable [facility] Primary Care Unavailable PILAR ARNDT MD SAME Dalton Attending Unavailable [facility] Primary Care Unavailable KENZIE WALDRON MD Consulting Unavailable OSMAR STRATTON, DAMIAN Consulting UnavailDr. Tri Mckeon Primary Care Provider [phone] Dr. Tri Choudhury Referring Provider Yarelis SENIOR SUPPLIER QUALITY ENGINEER, SENIOR SUPPLIER QUALITY ENGINEER-C Julita Attending Provider [phone] Dr. Tri Choudhury MD Primary Care Provider Dr. Tri Choudhury MD Attending Provider [phone] Dr. Tri Choudhury MD Referring Provider [phone] Justa Dee Attending Provider Miedel, Tri Attending Unavailable Miedel, Tri Referring Unavailable Miedel, Tri Primary Care Unavailable Miedel, Tri Attending Unavailable Miedel, Tri Referring Unavailable Miedel, Tri Primary Care Unavailable Miedel, Tri Attending Unavailable Miedel, Tri Referring Unavailable Miedel, Tri Primary Care Unavailable Miedel, Tri Attending Unavailable Miedel, Tri Referring Unavailable Miedel, Waldron Primary Care Unavailable Miedel, Tri Attending Unavailable Miedel, Tri Referring Unavailable Miedel, Tri Primary Care Unavailable Miedel, Tri Attending Unavailable Miedel, Tri Referring Unavailable Miedel, Waldron Primary Care Unavailable Miedel, Tri Attending Unavailable Miedel, Tri Referring Unavailable Miedel, Tri Primary Care Unavailable Miedel, Tri Primary Care Unavailable Miedel, Tri Attending Unavailable Miedel, Tri Referring Unavailable Miedel, Waldron Primary Care Unavailable Justa Alba Attending Unavailable Miedel, Tri Referring Unavailable Miedel, Tri Primary Care Unavailable Miedel, Tri Attending Unavailable Miedel, Tri Referring Unavailable Miedel, Waldron Primary Care Unavailable Miedel, Tri Attending Unavailable Miedel, Tri Referring Unavailable Medications Current Medications Medication Drug Class(es) Dates Sig (Normalized) Sig (Original) amLODIPine 10 mg oral tablet (20 sources) Dihydropyridine Calcium Channel Dimitris Start: 03-18-2022 take 1 tablet by mouth once daily Amlodipine 10 mg Tablet Active 10 mg PO DAILY March 18, 2022 12:00am take 1 tablet by mouth once duane y amLODIPine Besylate 5 MG Oral Tablet TAKE 1 TABLET DAILY. Quantity: 1 Refills: 0 Ordered: 02-Feb-2023 DO Active Comment on above: Take 10 mg by mouth once daily. aspirin 81 mg delayed release oral tablet (9 sources) Platelet Aggregation Inhibitor, Nonsteroidal Anti-inflammatory Drug Start: 2 take 1 tablet by mouth once daily Aspirin (Adult Aspirin Regimen) 81 mg tablet,delayed release (DR/EC) Active 81 MG PO DAILY March 08, 2022 12:00am capsicum extract 500 mg oral capsule (1 source) Start: 5 Capsicum (Cayenne) 500 mg capsule Active mg PO October 10, 2024 1:00am ciprofloxacin 250 mg oral tablet (3 sources) Quinolone Antimicrobial Start: 3 End: 3 Cipro 250 mg oral tablet Dose : 500 mg = 2 tab(s), Oral, q12h, X 7 day(s), # 28 tab(s), 0 Refill(s), 01/22/23 14:25:00 EDT, Pharmacy: [facility]/pharmacy #[id number], 177.8, cm, 01/10/23 4:07:00 EDT, Height, 156.4 Start Date: 01/15/23 Stop Date: 01/22/23 Status: Ordered Start: 03-31-2022 ciprofloxacin 500 mg oral tablet Dose : 500 mg = 1 tab(s), Oral, q12h Start Date: 03/31/22 Status: Ordered [place] 5-Glr-Gej-Fish Oil (12 sources) Start: 03-09-2022 [place] 3-Dha-Ep a-Fish Oil (Fish Oil) 300-1,000 mg Capsule Active 1 NMA PO DAILY March 09, 2022 12:00am Start: 03-09-2022 take 300-1000 mg by mouth once daily [place] 9-Aep-Vvg-Fish Oil (Fish Oil) 300-1,000 mg Capsule Active 1 CAP PO DAILY March 08, 2022 11:00pm Start: 03-09-2022 take 300-1000 mg by mouth once daily [place] 3-Ncj-Evg-Fish Oil (Fish Oil) 300-1,000 mg Capsule Active 1 CAP PO DAILY March 09, 2022 12:00am docusate sodium 50 mg / sennosides, detention 8.6 mg oral tablet (3 sources) Start: 03-31-2023 take 1 tablet by gab twice daily as needed for constipation Senexon-S 50 mg-8.6 mg oral tablet Dose = 2 tab(s), Oral, BID, PRN Constipation, 0 Refill(s) Start Date: 03/31/23 Status: Ordered Start: 02-27-2023 End: 03-28-2023 take 2 tablets by mouth twice daily sennosides-docusate 8.6 mg-50 mg oral tablet ; 2 tab(s) orally 2 times a day Quantity: 60 Refills: 0 Ordered: 27-Feb-2023 Dae Yeungie Start: 27-Feb-2023 End: 28-Mar-2023 Generic Substitution Allowed Fish Oils (10 sources) Start: 03-31-2022 omega-3 fish o il 1000 mg oral capsule Dose : 1,000 mg = 1 cap(s), Oral, qAM, 0 Refill(s) Start Date: 03/31/22 Status: Ordered Start: 03-31-2022 omega-3 fish o il 1000 mg oral capsule Dose : 1,000 mg = 1 cap(s), Oral, qDay, 0 Refill(s) Start Date: 03/31/22 Status: Ordered lisinopril 20 mg oral tablet (20 sources) Angiotensin Converting Enzyme Inhibitor Start: 03-18-2022 take 1 tablet by mouth once daily Lisinopril 20 mg Tablet Active 20 mg PO DAILY March 18, 2022 12:00am Comment on above: Take 20 mg by mouth once daily. Magnesium (12 sources) Start: 03-09-2022 take 1 tablet by mouth once daily Magnesium 250 mg Tablet Active 250 mg PO DAILY March 09, 2022 12:00am Start: 03-09-2022 take 250 mg by mouth once duane y Magnesium Active 250 MG PO DAILY March 08, 2022 11:00pm Start: 03-09-2022 take 250 mg by mouth once duane y Magnesium Active 250 MG PO DAILY March 09, 2022 12:00am magnesium oxide 400 mg oral tablet (4 sources) Start: 03-31-2022 magnesium oxid e 400 mg oral tablet Dose : 400 mg = 1 tab(s), Oral, qAM Start Date: 03/31/22 Status: Ordered Multivitamin preparation (1 source) Multivitamin ; 1 tab(s) orally once a dayCalcium 1000mgMagnesium 5mgVitamin D3 15mcgZinc 140mg Quantity: 0 Refills: 0 Ordered: 25-Feb-2023 Gustavo Naranjo Generic Substitution Allowed Multivitamin tablet (1 source) Start: 10-10-2024 Multivitamin t ablet Active 1 {tbl} PO daily October 10, 2024 1:00am omega 3 1000mg capsules (1 source) take 2 capsules by mouth once daily omega 3 1000mg capsules ; 2 cap(s) orally once a day Quantity: 0 Refills: 0 Ordered: 25-Feb-2023 Gustavo Naranjo Generic Substitution Allowed oxyCODONE hydrochloride 5 mg oral capsule (7 sources) Opioid Agonist Start: 03-18-2022 take 5 mg by mouth every twelve hours Oxycodone Active 5 MG PO Q12H 10 March 18, 2022 Start: 02-19-2022 take 5 mg by mouth e very eight hours Oxycodone Active 5 MG PO Q8H 15 February 19, 2022 6:10pm pantoprazole 40 mg delayed release oral tablet (4 sources) Proton Pump Inhibitor Start: 01-15-2023 pantoprazole 40 mg oral enteric coated tablet Dose : 40 mg = 1 tab(s), Oral, qAM, # 30 tab(s), 0 Refill(s), Pharmacy: [facility]/pharmacy #[id number], 177.8, cm, 01/10/23 4:07:00 EDT, Height Start Date: 01/15/23 Status: Ordered traMADol hydrochloride 50 mg oral tablet (4 sources) Opioid Agonist Start: 03-31-2023 traMADol 50 mg oral tablet Dose : 50 mg = 1 tab(s), Oral, q4h, PRN for pain, # 12 tab(s), 0 Refill(s), 156.4 Start Date: 03/31/23 Status: Ordered Start: 02-25-2023 End: 03-03-2023 take 1 tablet by mouth every four to six hours as needed for pain traMADol 50 mg oral tablet ; 1 tab(s) orally every 4 to 6 hours x 7 days, As Needed -for pain Dx: G89.18 Quantity: 28 Refills: 0 Ordered: 25-Feb-2023 Justa Blackman Start: 25-Feb-2023 End: 03-Mar-2023 Generic Substitution Allowed Comments: Caution federal law prohibits the transfer of this drug to any person other than the person for whom it was prescribed.May cause drowsiness. Alcohol may intensify this effect. Use care when operating dangerous machinery.Obtain medical advice before taking any non-prescription drugs as some may affect the action of this medication. Start: 01-15-2023 End: 01-18-2023 Ultram 50 mg oral tablet Dos e : 50 mg = 1 tab(s), Oral, q6hr, PRN PRN as needed for pain, X 3 day(s), # 12 tab(s), 0 Refill(s), 01/18/23 14:00:00 EDT, Pharmacy: [facility]/pharmacy #[id number], Acute post-operative pain, 177.8, cm, 01/10/23 4:07:00 EDT, Height, 156.4 Start Date: 01/15/23 Stop Date: 01/18/23 Status: Ordered Comment on above: Caution federal law prohibits the transfer of this drug to any person other than the person for whom it was prescribed.May cause drowsiness. Alcohol may intensify this effect. Use care when operating dangerous machinery.Obtain medical advice before taking any non-prescription drugs as some may affect the action of this medication. Completed/Discontinued Medications Medication Drug Class(es) Dates Sig (Normalized) Sig (Original) acetaminophen 500 mg oral tablet (20 sources) Start: 03-08-2023 take 2 tablets by mouth once at bedtime Tylenol Extra Strength 500 MG Oral Tablet 2 tablets by mouth every bedtime Quantity: 0 Refills: 0 Ordered: 08-Mar-2023 Chavez Richardson MD Start : 08-Mar-2023 Active Start: 02-25-2023 take 2 tablets by [facility] every six hours acetaminophen 325 mg oral tablet ; 2 tab(s) orally every 6 hours Quantity: 0 Refills: 0 Ordered: 25-Feb-2023 Justa Blackman Start: 25-Feb-2023 Generic Substitution Allowed acetaminophen (T YLENOL ORAL) Take by mouth as needed. 0 Active Comment on above: Take by mouth as nee ded. acetaminophen 325 mg / oxyCODONE hydrochloride 5 mg oral tablet (14 sources) Opioid Agonist Start: 08-20-2016 End: 12-22-2016 Oxycodone-Acetaminophen 1 TABLET tablet Discontinued 1 - 2 {tbl} PO EVERY 4 HOURS NEEDED as needed for Pain August 20, 2016 1:00am December 22, 2016 3:25pm Start: 08-20-2016 End: 12-22-2016 take 1 tablet by mouth every four hours as needed Oxycodone-Acetaminophen Discontinued 1 - 2 TABLET PO EVERY 4 HOURS NEEDED August 20, 2016 1:00am December 22, 2016 3:25pm Calcium (5 sources) Phosphate Binder, Calcium Calcium CAPS Quantit y: 0 Refills: 0 Ordered: 02-Feb-2023 DO Active chlorhexidine gluconate 1.2 mg/ml mouthwash (4 sources) Start: 02-22-2023 Hibiclens 4 % External Liquid use as a preoperative shower Quantity: 1 Refills: 0 Ordered: 22-Feb-2023 Nano Barbosa Start : 22-Feb-2023 Active Start: 02-22-2023 take 15 mL by mouth three times daily Chlorhexidine Gluconate 0.12 % Mouth/Throat Solution SWISH AND SPIT WITH 15ML FOR 30 SECONDS THREE TIMES A DAY Quantity: 473 Refills: 0 Ordered: 22-Feb-2023 Nano Barbosa Start : 22-Feb-2023 Active 0.6 ml enoxaparin sodium 100 mg/ml prefilled syringe (1 source) Low Molecular Weight Heparin Start: 02-25-2023 enoxaparin 60 mg/0.6 mL injectable solution ; 60 milligram(s) subcutaneously 2 times a day Quantity: 48 Refills: 0 Ordered: 25-Feb-2023 Justa Blackman Start: 25-Feb-2023 Generic Substitution Allowed Comments: It is very important that you take or use this exactly as directed. Do not skip doses or discontinue unless directed by your doctor. Comment on above: It is very important that you take or use this exactly as directed. Do not skip doses or discontinue unless directed by your doctor. metroNIDAZOLE 500 mg oral tablet (3 sources) Nitroimidazole Antimicrobial Start: 02-10-2023 metroNIDAZOLE 500 MG Oral Tablet TAKE 1 TABLET Other Take one 500mg tablet at 6:00pm, 7:00pm and 11:00pm the evening before surgery Quantity: 3 Refills: 0 Ordered: 10-Feb-2023 Chavez Richardson MD Start : 10-Feb-2023 Active neomycin sulfate 500 mg oral tablet (3 sources) Aminoglycoside Antibacterial Start: 02-10-2023 Neomycin Sulfate 500 MG Oral Tablet TAKE 2 TABLET Other Take 2 (500mg each) tablets at 6:00pm, 7:00pm and 11:00pm the evening before surgery Quantity: 6 Refills: 0 Ordered: 10-Feb-2023 Chavez Richardson MD Start : 10-Feb-2023 Active Pemberton 3 CAPS (5 sources) Pemberton 3 CAPS MIRELLA E DIRECTED. Quantity: 0 Refills: 0 Ordered: 02-Feb-2023 DO Active rivaroxaban 20 mg oral tablet (14 sources) Factor Xa Inhibitor Start: 12-13-2016 End: 12-22-2016 take 1 tablet by mouth once daily Rivaroxaban (Xarelto) 20 MG tablet Discontinued 20 mg PO DAILY December 13, 2016 12:00am December 22, 2016 3:55pm Problems Active Problems Problem Classification Problem Date Documented Da te Episodic/Chronic Abdominal pain (7 sources) Abdominal pain; Translations: [Unspecified abdominal pain] Onset: 3 Episodic Acute and unspecified renal failure (1 source) Acute renal failure syndrome; Translations: [Acute kidney failure, unspecified] Episodic Administrative/social admission (1 source) Patient encounter status; Translations: [Other reasons for seeking consultation] 02-27-2023 Episodic Bacterial infection; unspecified site (1 source) Bacteremia; Translations: [Bacteremia] Episodic Biliary tract disease (20 sources) Leakage of bile; Translations: [Disease of biliary tract, unspecified] Onset: 2 Chronic Biliary tract disease (20 sources) Acute cholecystitis; Translations: [Acute cholecystitis] Onset: 2 Episodic Cardiac dysrhythmias (1 source) Bradycardia, unspecified; Translations: [Bradycardia, unspecified] Onset: 3 Episodic Complications of surgical procedures or medical care (20 sources) Leakage of bile; Translations: [Other postprocedural complications and disorders of digestive system] Episodic Esophageal disorders (1 source) Gastro-esophageal reflux disease without esophagitis; Translations: [Gastro-esophageal reflux disease without esophagitis] Onset: 3 Chronic Essential hypertension (17 sources) Hypertensive disorder; Translations: [Essential hypertension] Onset: 3 03-31-2022 Chronic Genitourinary congenital anomalies (1 source) Lobulated, fused and horseshoe kidney; Translations: [Lobulated, fused and horseshoe kidney] Onset: 3 Chronic Hepatitis (1 source) Nonalcoholic steatohepatitis (CONNER); Translations: [Nonalcoholic steatohepatitis (CONNER)] Onset: 3 Chronic Osteoarthritis (13 sources) Arthritis; Translations: [Arthropathy, unspecified, site unspecified] 05-25-2022 Chronic Other aftercare (1 source) Follow-up status; Translations: [Encounter for other specified aftercare] Episodic Other aftercare (1 source) Other mcc (current) drug therapy; Translations: [Other mcc (current) drug therapy] Onset: 3 Episodic Other gastrointestinal disorders (5 sources) History of pancreatitis; Translations: [Personal history of other diseases of digestive system] Episodic Other nutritional; endocrine; and metabolic disorders (1 source) Obesity, unspecified; Translations: [Obesity, unspecified] Onset: 9 Chronic Other nutritional; endocrine; and metabolic disorders (2 sources) Body mass index (BMI) 45.0-49.9, adult; Translations: [Body mass index (BMI) 45.0-49.9, adult] Onset: 9 Chronic Other nutritional; endocrine; and metabolic disorders (11 sources) Morbid obesity; Translations: [Morbid (severe) obesity due to excess calories] Chronic Other nutritional; endocrine; and metabolic disorders (4 sources) Morbid (severe) obesity due to excess calories; Translations: [Morbid obesity] Onset: 3 Chronic Other nutritional; endocrine; and metabolic disorders (1 source) Body mass index 40+ - severely obese; Translations: [Body mass index (BMI) 45.0-49.9, adult] Chronic Other nutritional; endocrine; and metabolic disorders (1 source) Body mass index (BMI) 50.0-59.9, adult; Translations: [Body mass index [BMI] 50.0-59.9, adult] Onset: 3 Chronic Other screening for suspected conditions (not mental disorders or infectious disease) (2 sources) Imaging of biliary tract abnormal; Translations: [Abnormal results of function studies of other organs and systems] Onset: 2 Episodic Pancreatic disorders (not diabetes) (20 sources) Acute pancreatitis; Translations: [Acute pancreatitis without necrosis or infection, unspecified] Onset: 2 Episodic Phlebitis; thrombophlebitis and thromboembolism (10 sources) Superficial thrombophlebitis; Translations: [Phlebitis and thrombophlebitis of unspecified site] Onset: 3 Episodic Residual codes; unclassified (15 sources) Sleep apnea; Translations: [Unspecified sleep apnea] 03-31-2022 Chronic Residual codes; unclassified (4 sources) Obstructive sleep apnea (adult) (pediatric); Translations: [Obstructive sleep apnea (adult)(pediatric)] Onset: 3 Chronic Residual codes; unclassified (4 sources) Obstructive sleep apnea syndrome; Translations: [Obstructive sleep apnea (adult) (pediatric)] 09-15-2022 Chronic Residual codes; unclassified (4 sources) Edema of lower extremity; Translations: [Edema] Episodic Residual codes; unclassified (1 source) Past history of procedure; Translations: [Other specified postprocedural states] Episodic Sprains and strains (1 source) Lower back injury; Translations: [Strain of muscle, fascia and tendon of lower back, subsequent encounter] Episodic Unclassified (2 sources) ICD-10 CALCULUS OF GALLBLADDER W/O CHOLECYSTITIS W/O OBSTRUCTION K80.20/ CPT CODE 44690 02-24-2023 Comment on above: ICD-10 CALCULUS OF G ALLBLADDER W/O CHOLECYSTITIS W/O OBSTRUCTION K80.20/ CPT CODE 47447 Unclassified (2 sources) Body mass index [BMI] 45.0-49.9, adult 02-25-2023 Unclassified (1 source) POST OP 02-25-2023 Comment on above: POST OP Unclassified (1 source) Encounter for cholecystectomy 02-27-2023 Past or Other Problems Problem Classification Problem Date Documented Date Episodic/Chronic Hemorrhoids (2 sources) Residual hemorrhoidal skin tags; Translations: [Other hemorrhoids] Onset: 06-29-2019 Episodic Other aftercare (3 sources) Encounter for follow-up examination after completed treatment for conditions other than malignant neoplasm; Translations: [Encounter for follow-up examination after completed treatment for conditions other than malignant neoplasm] Onset: 06-29-2019 Episodic Other and unspecified benign neoplasm (1 source) Personal history of colonic polyps; Translations: [Personal history of colonic polyps] Onset: 06-29-2019 Episodic Residual codes; unclassified (11 sources) Acquired absence of other specified parts of digestive tract; Translations: [Other acquired absence of organ] Onset: 03-04-2022 Episodic Unclassified (1 source) CALCULUS OF GALLBLADDER W/O CHOLECYSTITIS W/O OBSTRUCTION, OPEN CHOLY, CPT CODE 09354 02-24-2023 Comment on above: CALCULUS OF GALLBLAD JULIAN W/O CHOLECYSTITIS W/O OBSTRUCTION, OPEN CHOLY, CPT CODE 07019 Results Test Name Value Interpretation Reference Range Facility Pulmonary Visit Reporton Pulmonary Visit Report [facility] [address] [place] [address] OFFICE VISIT Date of Service: 10/10/24 MR#: [id number] Acct: [id number] Name: GUSTAVO CERDA Rep #: [id number] [birth year] : 1960 Provider: Justa Alba NP Age/Sex: 64/M Location: [facility] [place] Status: Signed Assessment and Plan Assessment and Plan (1) ABDULKADIR (obstructive sleep apnea): Status: Chronic Plan: Sleep apnea is well-controlled on BiPAP at current settings. I recommend that he continue with compliant use of therapy. The patient is receiving benefit from the device. Continue to replace mask, tubing, supplies as needed. Follow-up in 1 year with compliance report. (2) Morbid obesity: Status: Chronic Plan: Complicates exam, plan, care, prognosis. Weight loss is warranted through prudent dieting and daily exercise, he is encouraged to continue with this regimen. Plan Details Follow Up: 1 Year (LMR) HPI HPI Comments Details: This 64-year-old male patient presents to the office today for routine follow-up of his obstructive sleep apnea. He is ambulatory and currently on room air. He has not recently been seen in the ED or urgent care for any respiratory illness. He has not required of any antibiotics or steroids for any breathing problems. He denies shortness of breath, cough, sputum production or hemoptysis. He denies wheezing, chest tightness, chest pain or palpitations. He denies fever, chills or body aches. He is now following with a cutter barrel drum and is exercising daily. He has decreased the bread in diet. He reports that he has lost 8 pounds in the last 2 weeks. The patient is using BiPAP without significant air leak, oral dryness, snore. There are no concerns about the air pressure. Sleep is refreshing. The patient is reporting good compliance. Daytime hypersomnia is improved. He is using a nasal style mask. Compliance report for the past 30 days shows 100% compliance with an average use of 7 hours and 20 minutes nightly. The report shows that he is utilizing BiPAP with an AHI of 2.3 and a median airleak at 3.6 L/min. This report is reviewed with patient today. 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: [employer] Accompanied by: Self Allergies No Known Allergies Allergy (Verified 10/10/24 09:54) Medications ???Medication ???Instructions ???Recorded ???Confirmed ???Type magnesium 250 mg tablet 250 mg PO DAILY supplement 03/09/22 10/10/24 History omega 9-yws-ntq-fish oil 300 1 cap PO DAILY supplement 03/09/22 10/10/24 History mg-1,000 mg capsule (Fish Oil) amlodipine 10 mg tablet 10 mg PO DAILY #30 tabs 03/18/22 10/10/24 Rx lisinopril 20 mg tablet 20 mg PO DAILY #30 tabs 03/18/22 10/10/24 Rx capsicum (cayenne) 500 mg capsule mg PO 10/10/24 10/10/24 History multivitamin 1 tab PO QDAY 10/10/24 10/10/24 History PFSH Medical History Pancreatitis Arthritis Chronic knee pain Shortness of breath on exertion History of stress test Non-smoker BiPAP (biphasic positive airway pressure) dependence Morbid obesity ABDULKADIR (obstructive sleep apnea) Acute cholecystitis Surgical History History of cholecystectomy History of surgery of liver Status post cholecystectomy Family History Mother Asthma Diabetes Father Colon cancer Sister Cancer Liver cancer Brother Diabetes Social History Smoking Status: Never smoker alcohol intake: never Review of Systems Resp Respiratory: Yes as per HPI Exam Const Constitutional: Positive conversant, cooperative, in no acute respiratory distress, healthy appearing, well developed, well nourished, good hygiene and obese (Protuberant abdomen) Head Head: Yes normocephalic, Yes atraumatic and No cyanosis of lips/distal nose Eyes Eye: Positive clear conjunctiva; Negative nystagmus Ears Ear: Positive hearing normal and external ears normal Nose Nose: Yes external nose normal Mouth Mouth: Positive oral mucosae normal and no lesions Neck Neck: Positive normal visual inspection, full ROM and trachea midline Chest Wall Chest: Positive normal inspection of the chest and s (more content not included)... Normal [facility] Absolute lymphocyte countOrd ered By: Donya Greenfield on 09-29-2023 Lymphocytes Auto (Unsp spec) [#/Vol] 1.81 10*3/uL 0.83-4.51 [facility] Automated lymphocyte count a s percentage of total leukocytesOrdered By: Donya Greenfield on 09-29-2023 Lymphocytes/100 WBC Auto (Unsp spec) 23.0 % 19-41 [facility] Basophil percentageOrdered B y: Donya Greenfield on 09-29-2023 Basophils/100 WBC (Bld) 0.4 % 0-1 [facility] Bilirubin [Mass/Vol] 1.00 mg/dL 0.20-1.00 [facility] Comment on above: For patients on eltr ombopag therapy, use of Dimension [place] TBIL is not recommended. Chloride [Moles/Vol] 108 mmol/L 98-107 [facility] Cholesterol [Mass/Vol] 134 mg/dL <200 [facility] Comment on above: <200 mg/dL Desirable 200-240 mg/dL Borderline >240 mg/dL High Risk Eosinophils/100 WBC (Bld) 2.3 % 0-5 [facility] Glucose [Mass/Vol] 112 mg/dL 74-106 [facility] Comment on above: Fasting Glucose resu lt from 100 to 125 mg/dL suggests IMPAIRED HOMEOSTASIS per A.D.A. criteria. Hemoglobin (Bld) [Mass/Vol] 14.3 g/dL 13.0-16.5 [facility] Monocytes/100 WBC (Bld) 8.9 % 0-10 [facility] Neutrophils (Bld) [#/Vol] 5.1 10*3/uL 2.0-7.7 [facility] Neutrophils/100 WBC (Bld) 65.1 % 47-70 [facility] Potassium [Moles/Vol] 4.2 mmol/L 3.5-5.1 [facility] Protein [Mass/Vol] 7.4 g/dL 6.4-8.2 [facility] Sodium [Moles/Vol] 137 mmol/L 136-145 [facility] Triglyceride [Mass/Vol] 65 mg/dL <199 [facility] Comment on above: The drugs N-Acetylcy steine and Metamizole may falsely depress this assay.Serum Triglycerides Reference Interval Normal <150 mg/dL Borderline high 150 - 199 mg/dL High 200 - 499 mg/dL Very High > or = 500 mg/dL WBC (Bld) [#/Vol] 7.9 10*3/uL 4.4-11.0 [facility] Determination of erythrocyte mean corpuscular volume (MCV)Ordered By: Donya Greenfield on 09-29-2023 MCV (RBC) [Entitic vol] 87.3 fL 80-94 [facility] Erythrocyte distribution wid th ratioOrdered By: Donya Greenfield on 09-29-2023 Erythrocyte distribution width (RBC) [Ratio] 14.6 % 11.6-14.6 [facility] Erythrocyte distribution wid th standard deviationOrdered By: Donya Greenfield on 09-29-2023 Erythrocyte distribution width (RBC) [Entitic vol] 46.4 fL 35.1-43.9 [facility] Hematocrit Auto (Bld) [Volum e fraction]Ordered By: Donya Greenfield on 09-29-2023 Hematocrit (Bld) [Volume fraction] 43.4 % 40-54 [facility] Immature granulocytes/100 WB C Auto (Bld)Ordered By: Donya Greenfield on 09-29-2023 Immature granulocytes/100 WBC (Bld) 0.300 % 0.0-0.9 [facility] Comment on above: IG% - Immature Granu locytes (promyelocytes, myelocytes and metamyelocytes) > 1% indicates that a LEFT SHIFT is Present. Laboratory - Chemistry and C hemistry - challengeOrdered By: Donya Greenfield on 09-29-2023 Albumin/Globulin [Mass ratio] 0.8 {ratio} 0.9-2.4 [facility] ALP [Catalytic activity/Vol] 83 U/L 45-117 [facility] ALT [Catalytic activity/Vol] 25 U/L 16-61 [facility] Cholesterol in HDL (Body fld) [Mass/Vol] 46 mg/dL >40 [facility] Comment on above: The drugs N-Acetylcy steine and Metamizole may falsely depress this assay. Reference Range HDL <40 mg/dL Low HDL Cholesterol HDL >or= 60 mg/dL High HDL Cholesterol Cholesterol in LDL (Body fld) [Moles/Vol] 75 mg/dL 0-130 [facility] Cholesterol in VLDL Calc [Moles/Vol] 13 mg/dL 5-40 [facility] CO2 [Moles/Vol] 27.0 mmol/L 21.0-32.0 [facility] Globulin (S) [Mass/Vol] 4.2 g/dL 2.2-4.2 [facility] Urea nitrogen/Creatinine [Mass ratio] 17.2 mg/mg 10-20 [facility] Laboratory - Hematology and Cell countsOrdered By: Donya Greenfield on 09-29-2023 MCH (RBC) [Entitic mass] 28.8 pg 27.0-32.0 [facility] MCHC (RBC) [Mass/Vol] 32.9 g/dL 32-36 [facility] Nucleated RBC/100 WBC (Bld) [Ratio] 0 % 0-5 [facility] Platelets (Bld) [#/Vol] 335 10*3/uL 150-450 [facility] No Panel InformationOrdered By: Donya Greenfield on 09-29-2023 Estimated GFR (MDRD) Amer 123 mL/min >60 [facility] Comment on above: GFR Calc Estimated GFR (MDRD) Non-Af Amer 102 mL/min >60 [facility] Comment on above: Non- GFR Calc Platelet mean volume Kevin-Ec ker (Bld) [Entitic vol]Ordered By: Donya Greenfield on 09-29-2023 Platelet mean volume (Bld) [Entitic vol] 8.6 fL 6.2-12.0 [facility] RBC Auto (Bld) [#/Vol]Ordere d By: Donya Greenfield on 09-29-2023 RBC (Bld) [#/Vol] 4.97 10*6/uL 4.6-6.2 [facility] Serum or plasma calcium sammy urement (mass/volume)Ordered By: Donya Greenfield on 09-29-2023 Calcium [Mass/Vol] 9.2 mg/dL 8.5-10.1 [facility] Serum or plasma creatinine m easurement (mass/volume)Ordered By: Donya Greenfield on 09-29-2023 Creatinine [Mass/Vol] 0.82 mg/dL 0.70-1.30 [facility] Comment on above: The validity of the calculated GFR & GFRAA in patients over 70 years has not been determined. Clinical correlation is essential. Serum or plasma urea nitroge n measurement (mass/volume)Ordered By: Donya Greenfield on 09-29-2023 Urea nitrogen [Mass/Vol] 14 mg/dL 7-18 [facility] Thin prep Papanicolaou smear with manual screeningOrdered By: Donya Greenfield on 09-29-2023 Thin prep Papanicolaou smear with manual screening 3.2 g/dL 3.2-5.0 [facility] Thin prep Papanicolaou smear with manual screening 16 U/L 15-37 [facility] Thin prep Papanicolaou smear with manual screening 2 5-15 [facility] XR ERCP BILIARY AND PANCREAT IC DUCTon 04-06-2023 XR ERCP BILIARY AND PANCREATIC DUCT ORIGINAL EXAMINATION: 9 SPOT IMAGES FROM AN ERCP COMPARISON: None FLUOROSCOPY DOSE AND TYPE: Radiation Exposure Index: 50.38 mGy air kerma. Fluoroscopy time was 57 seconds. 9 intraoperative images obtained. HISTORY: ORDERING SYSTEM PROVIDED HISTORY: Reason for Exam: Common bile duct dilation FINDINGS: A stent is seen within the common duct. A wire was placed in the common duct. Contrast shows a dilated duct and dilated intrahepatic ducts. Numerous filling defects seen in the initial images. Balloon sweeping performed. IMPRESSION: Limited intraoperative ERCP images. Refer to surgical report Interpreted by: Sekou Callahan MD Preliminary Report By: Sekou Callahan MD Electronically signed By Sekou Callahan MD Dictated Date: 04/06/2023 1:20:52 PM Prelim Date: 04/06/2023 1:22:33 PM Sign Date: 04/06/2023 1:22:33 PM Ordering Provider: PAULA Sahni [facility] ([place]) .Auto Diffon 03-31-2023 Basophil, Absolute 0.1 10 3/mcL Normal 0.0-0.3 [facility] ([place]) Comment on above: Performed By: #### C BC, ADIFF, ANEU, HFP, CMP, GFR #### [address] [address] Basophils/100 WBC (Bld) 1.1 % Normal 0.0-2.5 [facility] ([place]) Comment on above: Performed By: #### C BC, ADIFF, ANEU, HFP, CMP, GFR #### [address] [address] Eosinophil, Absolute 0.2 10 3/mcL Normal 0.0-0.7 [facility] ([place]) Comment on above: Performed By: #### C BC, ADIFF, ANEU, HFP, CMP, GFR #### [address] [address] Eosinophils/100 WBC (Bld) 4.6 % Normal 0.0-6.0 [facility] ([place]) Comment on above: Performed By: #### C BC, ADIFF, ANEU, HFP, CMP, GFR #### [address] [address] Lymphocyte, Absolute 1.4 10 3/mcL Normal 0.9-4.3 [facility] ([place]) Comment on above: Performed By: #### C BC, ADIFF, ANEU, HFP, CMP, GFR #### [place] [id number] [place] [id number] Lymphocytes/100 WBC (Bld) 31.6 % Normal 20.0-40.0 [facility] ([place]) Comment on above: Performed By: #### C BC, ADIFF, ANEU, HFP, CMP, GFR #### [place] [id number] [place] [id number] Monocyte, Absolute 0.4 10 3/mcL Normal 0.1-1.4 [facility] ([place] Comment on above: Performed By: #### C BC, ADIFF, ANEU, HFP, CMP, GFR #### [address] [address] Monocytes/100 WBC (Bld) 9.8 % Normal 2.0-13.0 [facility] ([place]) Comment on above: Performed By: #### C BC, ADIFF, ANEU, HFP, CMP, GFR #### [address] [address] Neutrophils/100 WBC (Bld) 52.9 % Normal 50.0-75.0 [facility] ([place]) Comment on above: Performed By: #### C BC, ADIFF, ANEU, HFP, CMP, GFR #### [address] [address] .GFRon 03-31-2023 GFR Non- >60 Normal [facility] ([place]) Comment on above: Result Comment: GFR Population mean for , Non- Americans Ages 20-29 = 116 mL/min/1.73 sq.m. Ages 30-39 = 107 mL/min/1.73 sq.m. Ages 40-49 = 99 mL/min/1.73 sq.m. Ages 50-59 = 93 mL/min/1.73 sq.m. Ages 60-69 = 85 mL/min/1.73 sq.m. Ages 70+ = 75 mL/min/1.73 sq.m. Chronic Kidney Disease: Less than 60 mL/min/1.73 square meters End Stage Renal Disease: Less than 15 mL/min/1.73 square meters Performed By: #### C BC, ADIFF, ANEU, HFP, CMP, GFR #### [address] [address] GFR >60 Normal [facility] ([place]) Comment on above: Result Comment: GFR Population mean for , Non- Americans Ages 20-29 = 116 mL/min/1.73 sq.m. Ages 30-39 = 107 mL/min/1.73 sq.m. Ages 40-49 = 99 mL/min/1.73 sq.m. Ages 50-59 = 93 mL/min/1.73 sq.m. Ages 60-69 = 85 mL/min/1.73 sq.m. Ages 70+ = 75 mL/min/1.73 sq.m. Chronic Kidney Disease: Less than 60 mL/min/1.73 square meters End Stage Renal Disease: Less than 15 mL/min/1.73 square meters Performed By: #### C BC, ADIFF, ANEU, HFP, CMP, GFR #### [address] [address] .NEUABSon 03-31-2023 Neutrophil, Absolute 2.4 10 3/mcL Normal 2.3-8.1 [facility] ([place]) Comment on above: Performed By: #### C BC, ADIFF, ANEU, HFP, CMP, GFR #### [address] [address] BMPon 03-31-2023 BUN/Creatinine Ratio 24.7 ratio High 10.0-22.0 [facility] ([place] Comment on above: Performed By: #### C BC, ADIFF, ANEU, HFP, CMP, GFR #### [address] [address] Calcium [Mass/Vol] 8.9 mg/dL Normal 8.7-10.4 [facility] ([place]) Comment on above: Performed By: #### C BC, ADIFF, ANEU, HFP, CMP, GFR #### [address] [address] Chloride [Moles/Vol] 106 mmol/L Normal 98-110 [facility] ([place]) Comment on above: Performed By: #### C BC, ADIFF, ANEU, HFP, CMP, GFR #### [address] [address] CO2 [Moles/Vol] 28 mmol/L Normal 22-32 [facility] ([place]) Comment on above: Performed By: #### C BC, ADIFF, ANEU, HFP, CMP, GFR #### [address] [address] Creatinine [Mass/Vol] 0.81 mg/dL Normal 0.60-1.40 [facility] ([place]) Comment on above: Performed By: #### C BC, ADIFF, ANEU, HFP, CMP, GFR #### [address] [address] Electrolyte Balance 5.0 mEq/L Normal 4.0-15.0 [facility] ([place]) Comment on above: Performed By: #### C BC, ADIFF, ANEU, HFP, CMP, GFR #### [place] [id number] Glucose [Mass/Vol] 118 mg/dL High 82-115 [facility] ([place]) Comment on above: Performed By: #### C BC, ADIFF, ANEU, HFP, CMP, GFR #### [place] [id number] Potassium [Moles/Vol] 4.8 mmol/L Normal 3.5-5.0 [facility] ([place]) Comment on above: Performed By: #### C BC, ADIFF, ANEU, HFP, CMP, GFR #### [address] [address] Sodium [Moles/Vol] 139 mmol/L Normal 136-145 [facility] ([place]) Comment on above: Performed By: #### C BC, ADIFF, ANEU, HFP, CMP, GFR #### [address] [address] Urea nitrogen [Mass/Vol] 20.0 mg/dL Normal 8.0-22.0 [facility] ([place]) Comment on above: Performed By: #### C BC, ADIFF, ANEU, HFP, CMP, GFR #### [address] [address] CBCon 03-31-2023 Erythrocyte distribution width (RBC) [Ratio] 14.2 % Normal 11.5-15.5 [facility] ([place]) Comment on above: Performed By: #### C BC, ADIFF, ANEU, HFP, CMP, GFR #### [place] [address] Hematocrit (Bld) [Volume fraction] 40.6 % Normal 40.0-52.0 [facility] ([place]) Comment on above: Performed By: #### C BC, ADIFF, ANEU, HFP, CMP, GFR #### [place] [address] Hgb 13.7 G/dL Normal 13.0-17.5 [facility] ([place]) Comment on above: Performed By: #### C BC, ADIFF, ANEU, HFP, CMP, GFR #### [place] [address] MCH (RBC) [Entitic mass] 30.5 pg Normal 27.0-33.0 [facility] ([place] Comment on above: Performed By: #### C BC, ADIFF, ANEU, HFP, CMP, GFR #### [place] [address] MCHC 33.9 G/dL Normal 32.0-36.0 [facility] ([place] Comment on above: Performed By: #### C BC, ADIFF, ANEU, HFP, CMP, GFR #### [place] [phone] MCV (RBC) [Entitic vol] 90.1 fL Normal 81.0-100.0 [facility] ([place]) Comment on above: Performed By: #### C BC, ADIFF, ANEU, HFP, CMP, GFR #### [place] [id number] Platelet 219 10 3/mcL Normal 150-450 [facility] ([place]) Comment on above: Performed By: #### C BC, ADIFF, ANEU, HFP, CMP, GFR #### [place] [address] Platelet mean volume (Bld) [Entitic vol] 6.8 fL Normal 6.4-10.5 [facility] ([place]) Comment on above: Performed By: #### C BC, ADIFF, ANEU, HFP, CMP, GFR #### [facility] [address] [place] [id number] RBC 4.50 10 6/mcL Normal 4.50-6.00 [facility] ([place]) Comment on above: Performed By: #### C BC, ADIFF, ANEU, HFP, CMP, GFR #### [facility] [address] [place] [address] WBC 4.5 10 3/mcL Normal 4.5-10.8 [facility] ([place]) Comment on above: Performed By: #### C BC, ADIFF, ANEU, HFP, CMP, GFR #### [facility] [address] [place] [id number] LABORATORYOrdered By: SYSTEM SYSTEM on 03-31-2023 Basophils (Bld) [#/Vol] 0.1 103/mcL Invalid Interpretation Code 0.0 - 0.3 10^3/mcL Workflow SS Basophils/100 WBC (Bld) 1.1 % Invalid Interpretation Code 0.0 - 2.5 % Workflow SS Calcium [Mass/Vol] 8.9 mg/dL Invalid Interpretation Code 8.7 - 10.4 mg/dL ADM SS Chloride [Moles/Vol] 106 mmol/L Invalid Interpretation Code 98 - 110 mEq/L ADM SS CO2 [Moles/Vol] 28 mmol/L Invalid Interpretation Code 22 - 32 mEq/L ADM SS Creatinine [Mass/Vol] 0.81 mg/dL Invalid Interpretation Code 0.60 - 1.40 mg/dL ADM SS Electrolyte Balance 5.0 mEq/L Invalid Interpretation Code 4.0 - 15.0 mEq/L AH ADM SS Eosinophils (Bld) [#/Vol] 0.2 103/mcL Invalid Interpretation Code 0.0 - 0.7 10^3/mcL AH Workflow SS Eosinophils/100 WBC (Bld) 4.6 % Invalid Interpretation Code 0.0 - 6.0 % AH Workflow SS Erythrocyte distribution width (RBC) [Ratio] 14.2 % Invalid Interpretation Code 11.5 - 15.5 % Workflow SS GFR/1.73 sq M.predicted among blacks MDRD (S/P/Bld) [Vol rate/Area] ml/min/1.73sqm Invalid Interpretation Code [employer] [facility] Comment on above: Interpretive Data: GFR Population mean for , Non- Americans Ages 20-29 = 116 mL/min/1.73 sq.m. Ages 30-39 = 107 mL/min/1.73 sq.m. Ages 40-49 = 99 mL/min/1.73 sq.m. Ages 50-59 = 93 mL/min/1.73 sq.m. Ages 60-69 = 85 mL/min/1.73 sq.m. Ages 70+ = 75 mL/min/1.73 sq.m. Chronic Kidney Disease: Less than 60 mL/min/1.73 square meters End Stage Renal Disease: Less than 15 mL/min/1.73 square meters GFR/1.73 sq M.predicted among non-blacks MDRD (S/P/Bld) [Vol rate/Area] ml/min/1.73sqm Invalid Interpretation Code [employer] [facility] Comment on above: Interpretive Data: GFR Population mean for , Non- Americans Ages 20-29 = 116 mL/min/1.73 sq.m. Ages 30-39 = 107 mL/min/1.73 sq.m. Ages 40-49 = 99 mL/min/1.73 sq.m. Ages 50-59 = 93 mL/min/1.73 sq.m. Ages 60-69 = 85 mL/min/1.73 sq.m. Ages 70+ = 75 mL/min/1.73 sq.m. Chronic Kidney Disease: Less than 60 mL/min/1.73 square meters End Stage Renal Disease: Less than 15 mL/min/1.73 square meters Glucose [Mass/Vol] 118 mg/dL Invalid Interpretation Code 82 - 115 mg/dL ADM SS Hematocrit (Bld) [Volume fraction] 40.6 % Invalid Interpretation Code 40.0 - 52.0 % Workflow SS Hemoglobin (Bld) [Mass/Vol] 13.7 G/dL Invalid Interpretation Code 13.0 - 17.5 G/dL Workflow SS Lymphocytes (Bld) [#/Vol] 1.4 103/mcL Invalid Interpretation Code 0.9 - 4.3 10^3/mcL AH Workflow SS Lymphocytes/100 WBC (Bld) 31.6 % Invalid Interpretation Code 20.0 - 40.0 % AH Workflow SS MCH (RBC) [Entitic mass] 30.5 pg Invalid Interpretation Code 27.0 - 33.0 pg AH Workflow SS MCHC 33.9 G/dL Invalid Interpretation Code 32.0 - 36.0 G/dL AH Workflow SS MCV (RBC) [Entitic vol] 90.1 fL Invalid Interpretation Code 81.0 - 100.0 fL AH Workflow SS Monocytes (Bld) [#/Vol] 0.4 103/mcL Invalid Interpretation Code 0.1 - 1.4 10^3/mcL AH Workflow SS Monocytes/100 WBC (Bld) 9.8 % Invalid Interpretation Code 2.0 - 13.0 % AH Workflow SS Neutrophils (Bld) [#/Vol] 2.4 103/mcL Invalid Interpretation Code 2.3 - 8.1 10^3/mcL AH Workflow SS Neutrophils/100 WBC (Bld) 52.9 % Invalid Interpretation Code 50.0 - 75.0 % AH Workflow SS Platelet mean volume (Bld) [Entitic vol] 6.8 fL Invalid Interpretation Code 6.4 - 10.5 fL AH Workflow SS Platelets (Bld) [#/Vol] 219 103/mcL Invalid Interpretation Code 150 - 450 10^3/mcL AH Workflow SS Potassium [Moles/Vol] 4.8 mmol/L Invalid Interpretation Code 3.5 - 5.0 mEq/L AH ADM SS RBC (Bld) [#/Vol] 4.50 106/mcL Invalid Interpretation Code 4.50 - 6.00 10^6/mcL AH Workflow SS Sodium [Moles/Vol] 139 mmol/L Invalid Interpretation Code 136 - 145 mEq/L AH ADM SS Urea nitrogen [Mass/Vol] 20.0 mg/dL Invalid Interpretation Code 8.0 - 22.0 mg/dL AH ADM SS Urea nitrogen/Creatinine [Mass ratio] 24.7 ratio Invalid Interpretation Code 10.0 - 22.0 ratio AH ADM SS WBC (Bld) [#/Vol] 4.5 103/mcL Invalid Interpretation Code 4.5 - 10.8 10^3/mcL AH Workflow SS Office Visit (Oncology Surge ry)on 03-08-2023 Follow-up visit Diagnoses/Problems Assessed Gallstones (574.20) (K80.20) Patient Discussion/Summary This gentleman is doing well in the early postoperative timeframe after a difficult open remnant cholecystectomy. He already has an appointment set locally for the removal of his biliary stent. I will see him next week and hopefully begin the process of staple removal. I do not think he needs any antibiotics as I think that that minimal erythema is staple related. He does have a little bit of suggestion of very thin skin in between his lamont medially and he may have a little bit of fat necrosis or a seroma but I do not think that anything needs to be drained. I will see him next week. This note has been dictated with voice recognition software and has not been reviewed for grammar or content errors. Final path is still pending. Chief Complaint POV #1 History of Present IllnessMr Cerda comes for his first postoperative visit. 12 days ago he underwent an open remnant cholecystectomy. He went home on postoperative day #3. He had a little bit of back discomfort in the first few days that he was home but that has gotten much better. He notes no drainage from his incision. There is no vomiting. His vital signs are below. On exam he appears well. His abdomen is protuberant but soft and nontender. He has a little bit of what I think is stable erythema at the medial aspect of his incision without any expressible drainage. It does not appear to be cellulitic redness. I am going to leave his lamont in today and likely start removing them at his visit with me next week. Active Problems Problems Arthritis (716.90) (M19.90) Gallstones (574.20) (K80.20) Hypertension (401.9) (I10) Lower extremity edema (782.3) (R60.0) Morbid obesity (278.01) (E66.01) Preoperative clearance (V72.84) (Z01.818) Sleep apnea (780.57) (G47.30) Past Medical History Problems History of acute pancreatitis (V12.79) (Z87.19) Surgical History Problems History of Cholecystectomy History of Rotator cuff repair History of Tonsillectomy with adenoidectomy Family History Father Family history of malignant neoplasm of colon (V16.0) (Z80.0) Sister Family history of liver disease (V18.59) (Z83.79) Social History Problems Never a smoker No alcohol use Allergies NoKnown No Known Allergies Recorded By: Chelo Dee; 02/02/2023 11:21:17 AM Current Meds Medication NameInstructionReason Calcium CAPSHealth Maintenance [place] 3 CAPSTAKE DIRECTED.Health Maintenance amLODIPine Besylate 5 MG Oral TabletTAKE 1 TABLET DAILY.Hypertension Lisinopril 20 MG Oral TabletTAKE 1 TABLET DAILY.Hypertension Tylenol Extra Strength 500 MG Oral Tablet2 tablets by mouth every bedtime Vitals Vital Signs Recorded: 08Mar2023 10:24AMRecorded: 08Mar2023 10:23AM Tobacco Useb) No Falls Screening (Age 18+)a) No falls within the last year Pain Scale0 Caomrrjdgux10.1 F Heart Rate80 Xiiqtktm687 Twvxdhmgq54 Lwdapq751 lb 4 oz BMI Khcyrlcdvb71.98 kg/m2 BSA Calculated2.61 Signatures Electronically signed by : Chavez Richardson MD; Mar 08 2023 10:51AM EST (Author) Normal [employer] Tobacco Screening.on 023 Fall risk assessment a) No falls within the last year [facility] Work Phone: Tobacco use status [facility] b) No [facility] Work Phone: Chart Updateon 03-02-2023 Chart Update Chart Update I called pt to f/u his PCP visit yesterday for his low back/sciatica type pain. He is feeling better and his PCP did not find any worrisome signs. He is eating well with no nausea. Bowels have moved. No drainage from incision. All sounds reasurring. He is seeing me in clinic next week. Signatures Electronically signed by : Chavez Richardson MD; Mar 02 2023 8:47AM EST (Author) Normal [employer] CBCon 02-27-2023 Erythrocyte distribution width (RBC) [Ratio] 13.8 % Normal 11.5 - 14.5 [facility] Comment on above: Performed By: #### C BC #### [facility] [address] [place] [address] Hematocrit (Bld) [Volume fraction] 38.1 % Low 41.0 - 52.0 [facility] Comment on above: Performed By: #### C BC #### [facility] [address] [place] [address] Hemoglobin (Bld) [Mass/Vol] 13.0 g/dL Low 13.5 - 17.5 [facility] Comment on above: Performed By: #### C BC #### [facility] [address] [place] [address] MCHC (RBC) [Mass/Vol] 34.1 g/dL Normal 32.0 - 36.0 [facility] Comment on above: Performed By: #### C BC #### [facility] [address] [place] [address] MCV (RBC) [Entitic vol] 92 fL Normal 80 - 100 [facility] Comment on above: Performed By: #### C BC #### [facility] [address] [place] [address] NUCLEATED RBC 0.0 /100 WBC Normal 0.0-0.0 [facility] [place], [facility] Comment on above: Performed By: #### C BC #### [facility] [address] [place] [address] Platelets (Bld) [#/Vol] 208 10*3/uL Normal 150 - 450 [facility] Comment on above: Performed By: #### C BC #### [facility] [address] [place] [address] RBC 4.16 x10E12/L Low 4.50 - 5.90 [facility] Comment on above: Performed By: #### C BC #### [facility] [address] [place] [address] WBC (Bld) [#/Vol] 7.8 10*3/uL Normal 4.4 - 11.3 [facility] Comment on above: Performed By: #### C BC #### [facility] [address] [place] [address] Daily Progress Note-Surgical Oncologyon 02-27-2023 Daily Progress Note-Surgical Oncology This report has been cancelled. Normal [facility] HEPATIC FUNCTION PANELon Albumin [Mass/Vol] 3.4 g/dL Normal 3.4 - 5.0 [facility] Comment on above: Performed By: #### H EPFP #### [facility] [address] [place] [address] Performed By: #### R ENAL #### [facility] [address] [place] [address] ALP [Catalytic activity/Vol] 61 U/L Normal 33 - 136 [facility] Comment on above: Performed By: #### H EPFP #### [facility] [address] [place] [address] ALT [Catalytic activity/Vol] 33 U/L Normal 10 - 52 [facility] Comment on above: Result Comment: Lorna ents treated with Sulfasalazine may generate falsely decreased results for ALT. Performed By: #### H EPFP #### [facility] [address] [place] [address] AST [Catalytic activity/Vol] 19 U/L Normal 9 - 39 [facility] Comment on above: Performed By: #### H EPFP #### [facility] [address] [place] [address] Bilirubin [Mass/Vol] 1.0 mg/dL Normal 0.0 - 1.2 [facility] Comment on above: Performed By: #### H EPFP #### [facility] [address] [place] [address] Bilirubin.indirect [Mass/Vol] 0.2 mg/dL Normal 0.0 - 0.3 [facility] Comment on above: Performed By: #### H EPFP #### [facility] [address] [place] [address] Protein [Mass/Vol] 5.7 g/dL Low 6.4 - 8.2 [facility] Comment on above: Performed By: #### H EPFP #### [facility] [address] [place] [address] Hepatic Function Panelon ALP [Catalytic activity/Vol] 61 U/L 33 - 136 PR-Osrqcri-Bpd well 2100 Work Phone: ALT With P-5'-P [Catalytic activity/Vol] 33 U/L 10 - 52 BL-Uppfinp-Vrv well 2099 Work Phone: Comment on above: Patients treated wit h Sulfasalazine may generate falsely decreased results for ALT. AST With P-5'-P [Catalytic activity/Vol] 19 U/L 9 - 39 OF-Snxfyuh-Hrx well 2099 Work Phone: Bilirubin [Mass/Vol] 1.0 mg/dL 0.0 - 1.2 [facility] 20[facility] Work Phone: Bilirubin.direct [Mass/Vol] 0.2 mg/dL 0.0 - 0.3 UM-Milzpff-Lqd well 2099 Work Phone: Protein [Mass/Vol] 5.7 g/dL below low threshold 6.4 - 8.2 SR-Wrzkskr-Nxd well 2099 Work Phone: Laboratory - Hematology and Cell countson 02-27-2023 Erythrocyte distribution width (RBC) [Ratio] 13.8 % See Below MD-Cottsge-Mwt well 2099 Work Phone: Comment on above: Reference Range: 11. 5 - 14.5 Hematocrit (Bld) [Volume fraction] 38.1 % below low threshold See Below JS-Kxfhcfe-Eea well 2099 Work Phone: Comment on above: Reference Range: 41. 0 - 52.0 Hemoglobin (Bld) [Mass/Vol] 13.0 g/dL below low threshold See Below BK-Rsnmuvk-Ucb well 2099 Work Phone: Comment on above: Reference Range: 13. 5 - 17.5 MCHC (RBC) [Mass/Vol] 34.1 g/dL See Below DF-Rzmjcrf-Jto well 2099 Work Phone: Comment on above: Reference Range: 32. 0 - 36.0 MCV (RBC) [Entitic vol] 92 fL 80 - 100 CG-Iqygqva-Oez well 2099 Work Phone: Platelets (Bld) [#/Vol] 208 10*3/uL 150 - 450 WH-Ajklpex-Jyq [facility] 2099 Work Phone: RBC (Bld) [#/Vol] 4.16 {x10E12/L} below low threshold See Below AT-Plaknvh-Tdo well 2099 Work Phone: Comment on above: Reference Range: 4.5 0 - 5.90 WBC (Bld) [#/Vol] 7.8 10*3/uL 4.4 - 11.3 MG-Karsten sharfia-Sergo well 2099 Work Phone: No Panel Informationon 02-27 0.0 {/100_WBC} 0.0-0.0 MG-Surgery -Sergo well 2099 Work Phone: RENAL FUNCTION PANELon 02-27 Anion gap [Moles/Vol] 15 mmol/L Normal 10 - 20 [facility] Comment on above: Performed By: #### R ENAL #### [facility] [address] [place] [address] Calcium [Mass/Vol] 8.3 mg/dL Low 8.6 - 10.6 [facility] Comment on above: Performed By: #### R ENAL #### [facility] [address] [place] [address] Chloride [Moles/Vol] 102 mmol/L Normal 98 - 107 [facility] Comment on above: Performed By: #### R ENAL #### [facility] [address] [place] [address] Creatinine [Mass/Vol] 0.83 mg/dL Normal 0.50 - 1.30 [facility] Comment on above: Performed By: #### R ENAL #### [facility] [address] [place] [address] eGFR MALE >90 Normal >90 [facility] Comment on above: Result Comment: CALC ULATIONS OF ESTIMATED GFR ARE PERFORMED USING THE 2020 CKD-EPI STUDY REFIT EQUATION WITHOUT THE RACE VARIABLE FOR THE IDMS-TRACEABLE CREATININE METHODS. https://jasn.asnjournals.org/content/early/ASN.6846497 988 Performed By: #### R ENAL #### [facility] [address] [place] [address] Glucose [Mass/Vol] 97 mg/dL Normal 74 - 99 [facility] Comment on above: Performed By: #### R ENAL #### [facility] [address] [place] [address] HCO3 (Bld) [Moles/Vol] 23 mmol/L Normal 21 - 32 [facility] Comment on above: Performed By: #### R ENAL #### [facility] [address] [place] [address] Phosphate [Mass/Vol] 3.0 mg/dL Normal 2.5 - 4.9 [facility] Comment on above: Result Comment: The performance characteristics of phosphorus testing in heparinized plasma have been validated by the individual laboratory site where testing is performed. Testing on heparinized plasma is not approved by the FDA; however, such approval is not necessary. Performed By: #### R ENAL #### [facility] [address] [place] [address] Potassium [Moles/Vol] 4.0 mmol/L Normal 3.5 - 5.3 [facility] Comment on above: Performed By: #### R ENAL #### [facility] [address] [place] [address] Sodium [Moles/Vol] 136 mmol/L Normal 136 - 145 [facility] Comment on above: Performed By: #### R ENAL #### [facility] [address] [place] [address] Urea nitrogen [Mass/Vol] 13 mg/dL Normal 6 - 23 [facility] Comment on above: Performed By: #### R ENAL #### [facility] [address] [place] [address] Renal Function Panelon 02-27 Albumin BCP dye [Mass/Vol] 3.4 g/dL 3.4 - 5.0 MD-Nwqohyb-Lsj well 2100 Work Phone: Anion gap [Moles/Vol] 15 mmol/L 10 - 20 NW-Efddyvj-Hga well 2100 Work Phone: Calcium [Mass/Vol] 8.3 mg/dL below low threshold 8.6 - 10.6 DA-Ryjtlcc-Ztn well 2099 Work Phone: Chloride [Moles/Vol] 102 mmol/L 98 - 107 MG-S urgery-Sergo well 2099 Work Phone: CO2 [Moles/Vol] 23 mmol/L 21 - 32 MG-Surger y-Sergo well 2099 Work Phone: Creatinine [Mass/Vol] 0.83 mg/dL See Below JW-Puwazdh-Gcm well 2099 Work Phone: Comment on above: Reference Range: 0.5 0 - 1.30 Glucose [Mass/Vol] 97 mg/dL 74 - 99 MG-Karsten sharifa-Sergo well 2099 Work Phone: Phosphate [Mass/Vol] 3.0 mg/dL 2.5 - 4.9 MG-S urgery-Sergo well 2099 Work Phone: Comment on above: The performance dimple acteristics of phosphorus testing in heparinized plasma have been validated by the individual laboratory site where testing is performed. Testing on heparinized plasma is not approved by the FDA; however, such approval is not necessary. Potassium [Moles/Vol] 4.0 mmol/L 3.5 - 5.3 EY-Zqbtemg-Xos well 2099 Work Phone: Sodium [Moles/Vol] 136 mmol/L 136 - 145 MG-Karsten sharifa-Sergo well 2099 Work Phone: Urea nitrogen [Mass/Vol] 13 mg/dL 6 - 23 TT-Zxajpfa-Bir well 2099 Work Phone: Renal Function Panel >90 >90 MG-S urgery-Sergo well 2099 Work Phone: Comment on above: CALCULATIONS OF NITHYA MATED GFR ARE PERFORMED USING THE 2020 CKD-EPI STUDY REFIT EQUATION WITHOUT THE RACE VARIABLE FOR THE IDMS-TRACEABLE CREATININE METHODS.https://jasn.asnjournals.org/content//ASN .1793489344 BILIRUBIN,DIRECTon 3 Bilirubin.indirect [Mass/Vol] 0.4 mg/dL High 0.0 - 0.3 [facility] Comment on above: Performed By: #### C MP #### [facility] [address] [place] [address] Bilirubin, Serum Direct - Co njugatedon 02-26-2023 Bilirubin.direct [Mass/Vol] 0.4 mg/dL above high threshold 0.0 - 0.3 ZA-Bststew-Ndu well 2100 Work Phone: CBCon 02-26-2023 Erythrocyte distribution width (RBC) [Ratio] 14.1 % Normal 11.5 - 14.5 [facility] Comment on above: Performed By: #### C BC #### [facility] [address] [place] Hematocrit (Bld) [Volume fraction] 39.4 % Low 41.0 - 52.0 [facility] Comment on above: Performed By: #### C BC #### [facility] [address] [place] [address] Hemoglobin (Bld) [Mass/Vol] 13.0 g/dL Low 13.5 - 17.5 [facility] Comment on above: Performed By: #### C BC #### [facility] [address] [place] [address] MCHC (RBC) [Mass/Vol] 33.0 g/dL Normal 32.0 - 36.0 [facility] Comment on above: Performed By: #### C BC #### [facility] [address] [place] [address] MCV (RBC) [Entitic vol] 93 fL Normal 80 - 100 [facility] Comment on above: Performed By: #### C BC #### [facility] [address] [place] [address] NUCLEATED RBC 0.0 /100 WBC Normal 0.0-0.0 [facility] [place] Comment on above: Performed By: #### C BC #### [facility] [address] [place] [address] Platelets (Bld) [#/Vol] 208 10*3/uL Normal 150 - 450 [facility] Comment on above: Performed By: #### C BC #### [facility] [address] [place] [address] RBC 4.23 x10E12/L Low 4.50 - 5.90 [facility] Comment on above: Performed By: #### C BC #### [facility] [address] [place] [address] WBC (Bld) [#/Vol] 8.2 10*3/uL Normal 4.4 - 11.3 [facility] Comment on above: Performed By: #### C BC #### [facility] [address] [place] [address] COMPREHENSIVE PANELon 02-26- 2022 Albumin [Mass/Vol] 3.4 g/dL Normal 3.4 - 5.0 [facility] Comment on above: Performed By: #### C MP #### [facility] [address] [place] [address] ALP [Catalytic activity/Vol] 64 U/L Normal 33 - 136 [facility] Comment on above: Performed By: #### C MP #### [facility] [address] [place] [address] ALT [Catalytic activity/Vol] 45 U/L Normal 10 - 52 [facility] Comment on above: Result Comment: Lorna ents treated with Sulfasalazine may generate falsely decreased results for ALT. Performed By: #### C MP #### [facility] [address] [place] [address] Anion gap [Moles/Vol] 13 mmol/L Normal 10 - 20 [facility] Comment on above: Performed By: #### C MP #### [facility] [address] [place] [address] AST [Catalytic activity/Vol] 30 U/L Normal 9 - 39 [facility] Comment on above: Performed By: #### C MP #### [facility] [address] [place] [address] Bilirubin [Mass/Vol] 2.0 mg/dL High 0.0 - 1.2 [facility] Comment on above: Performed By: #### C MP #### [facility] [address] [place] [address] Calcium [Mass/Vol] 8.1 mg/dL Low 8.6 - 10.6 [facility] Comment on above: Performed By: #### C MP #### [facility] [address] [place] [address] Chloride [Moles/Vol] 101 mmol/L Normal 98 - 107 [facility] Comment on above: Performed By: #### C MP #### [facility] [address] [place] [address] Creatinine [Mass/Vol] 0.80 mg/dL Normal 0.50 - 1.30 [facility] Comment on above: Performed By: #### C MP #### [facility] [address] [place] [address] eGFR MALE >90 Normal >90 [facility] Comment on above: Result Comment: CALC ULATIONS OF ESTIMATED GFR ARE PERFORMED USING THE 2020 CKD-EPI STUDY REFIT EQUATION WITHOUT THE RACE VARIABLE FOR THE IDMS-TRACEABLE CREATININE METHODS. https://jasn.asnjournals.org/content/early//ASN.1119437 988 Performed By: #### C MP #### [facility] [address] [place] [address] Glucose [Mass/Vol] 103 mg/dL High 74 - 99 [facility] Comment on above: Performed By: #### C MP #### [facility] [address] [place] [address] HCO3 (Bld) [Moles/Vol] 24 mmol/L Normal 21 - 32 [facility] Comment on above: Performed By: #### C MP #### [facility] [address] [place] [address] Potassium [Moles/Vol] 4.0 mmol/L Normal 3.5 - 5.3 [facility] Comment on above: Performed By: #### C MP #### [facility] [address] [place] [address] Protein [Mass/Vol] 5.6 g/dL Low 6.4 - 8.2 [facility] Comment on above: Performed By: #### C MP #### [facility] [address] [place] [address] Sodium [Moles/Vol] 134 mmol/L Low 136 - 145 [facility] Comment on above: Performed By: #### C MP #### [facility] [address] [place] [address] Urea nitrogen [Mass/Vol] 14 mg/dL Normal 6 - 23 [facility] Comment on above: Performed By: #### C MP #### [facility] [address] [place] [address] Daily Progress Note-Anesthes ia - Painon 02-26-2023 Daily Progress Note-Anesthesia - Pain Service: Anesthesia - Pain Subjective Data: ABIODUN CERDA is a 62 year old Male who is Hospital Day # 3 and POD #2 for Open Remnant Choly with 'Gram. Postop Pain HPI - Palliative: relieved with IV analgesics and regional local anesthetics Provocative: movement Quality: burning and aching Radiation: none Severity: mild Timing: constant 24-HOUR ANALGESIC CONSUMPTION: Acetaminophen 650mg x4. Objective Data: Objective Information: T PRBPMAPSpO2 [id number]/7393% Date/Time02/26 13: 13: 13: 13: 13:48 Range(36.1C - 37.4C ) (66 - 78 ) (18 - 18 ) (104 - 130 )/ (56 - 79 ) (91% - 95% ) As of 25-Feb-2023 11:55:00, patient is on 1 L/min of oxygen via room air. Highest temp of 37.4 C was recorded at 02/25 20:38 Pain reported at 02/26 8:46: 0 = None ---- Intake and Output ----- Mn/Dy/Year TimeIntakeOutputNet Feb 26, 2023 2:00 [id number] Feb 26, 2023 6:00 [id number] Feb 25, 2023 10:00 [id number] The Intake and Output Totals for the last 24 hours are: IntakeOutputNet [id number] Physical Exam Narrative: Physical Exam: Physical Exam: Constitutional: no distress, alert and cooperative Eyes: clear sclera Head/Neck: No apparent injury, trachea midline Respiratory/Thorax: Patent airways, thorax symmetric, breathing comfortably Cardiovascular: no pitting edema Gastrointestinal: Nondistended Musculoskeletal: ROM intact Extremities: no clubbing Neurological: alert, spears x4 Psychological: Appropriate affect. Recent Lab Results: Results: CBC: 02/26/2023 06:35 \ Hgb / \ 13.0 L / WBC Plt 8.2 208 / Hct \ / 39.4 L \ RBC: 4.23 L MCV: 93 CMP: 02/26/2023 06:35 NA+ Cl- BUN / 134 L 101 14 / -------- Glucose --- 103 H K+ HCO3- Creat \ 4.0 24 0.80 \ \ T Bili / \ 2.0 H / AST x ---- x ALT 30 x ---- x 45 / Alk P \ / 64 \ Calcium : 8.1 L Anion Gap : 13 Albumin : 3.4 T Protein : 5.6 L Assessment and Plan: Daily Risk Screen: Does patient have an indwelling urinary cathetern/a consulting service Does patient have a central linen/a consulting service Comorbidities: ComorbidityOther Code Status: Code StatusFull Code Assessment: ABIODUN CERDA is a 62 year old Male with PMH significant for cholelithiasis, HTN, ABDULKADIR, CONNER, GERD, & previous DVT who presents 02/24 for open cholecystectomy with Dr. Richardson. Acute Pain consulted for block for postoperative pain control. Bilateral SUDEEP blocks/catheters performed preoperatively 02/24 Plan - Ambit was connected with Ropivacaine infusion at 7cc/hr per side. Refilled on 02/25 - Catheters removed today - Pain medications per primary team - Will sign off at [place] [phone] ph [phone] Attestation: Note Completion: I am a: Resident/Fellow Attending AttestationI saw and evaluated the patient. I personally obtained the noriega and critical portions of the history and physical exam or was physically present for noriega and critical portions performed by the resident/fellow. I reviewed the resident/fellows documentation and discussed the patient with the resident/fellow. I agree with the resident/fellows medical decision making as documented in the note. I personally evaluated the patient [id number] Electronic Signatures: Patricia Blue (Resident)) (Signed 26-Feb-2023 14:19) Authored: Service, Subjective Data, Objective Data, Assessment and Plan, Note Completion Adele Marcelino) (Signed 28-Feb-2023 08:11) Authored: Note Completion Co-Signer: Service, Subjective Data, Objective Data, Assessment and Plan, Note Completion Last Updated: 28-Feb-2023 08:11 by Adele Marcelino) Normal [facility] Daily Progress Note-Surgical Oncologyon 02-26-2023 Daily Progress Note-Surgical Oncology Service: Surgical Oncology Subjective Data: ABIODUN CERDA is a 62 year old Male who is Hospital Day # 3 and POD #2 for Open Remnant Choly with 'Gram. NAEO. Denies chest pain, shortness of breath, nuasea, vomiting. Objective Data: Objective Information: T PRBPMAPSpO2 [id number]/7393% Date/Time02/26 13: 13: 13: 13: 13:48 Range(36.1C - 37.4C ) (66 - 78 ) (18 - 18 ) (104 - 130 )/ (56 - 79 ) (91% - 95% ) As of 25-Feb-2023 11:55:00, patient is on 1 L/min of oxygen via room air. Highest temp of 37.4 C was recorded at 02/25 20:38 Pain reported at 02/26 15:37: 2 = Mild ---- Intake and Output ----- Mn/Dy/Year TimeIntakeOutputNet Feb 26, 2023 2:00 [id number] Feb 26, 2023 6:00 [id number] Feb 25, 2023 10:00 [id number] The Intake and Output Totals for the last 24 hours are: IntakeOutputNet [id number] Physical Exam Narrative: Physical Exam: General: Appears comfortable, in no distress. sititng up in chair this morning Neuro: Awake and alert, motor and sensation grossly intact Skin: Warm, dry. Not jaundiced Lungs: chest expansion symmetrical, on bipap CV: regular rate and rhythm Abdomen: soft, appropriately tender, RUQ dressing in place without strikethrough, KENNETH drain in place draining SS fluid Extremities: SCDs on, palpable pulses, no edema. Medication: Medications: Continuous Medications -------- 1. Ropivacaine 0.2%/ Ambit Pump 500 mL: 1000 mg Peripheral Nerve Scheduled Medications -------- 1. Acetaminophen: 650 mg Oral Every 6 Hours 2. Docusate 50 mg - Senna 8.6 m tablet(s) Oral 2 Times a Day 3. Ketorolac Injectable: 15 mg IntraVenous Push Every 6 Hours 4. Tamsulosin: 0.4 mg Oral Daily PRN Medications -------- 1. Naloxone Injectable: 0.2 mg IntraVenous Push Once 2. oxyCODONE Immediate Release: 10 mg Oral Every 6 Hours 3. Sodium Chloride 0.9% Injectable Flush: 10 mL IntraVenous Flush Every 8 Hours and as Needed 4. traMADol: 50 mg Oral Every 6 Hours Currently Suspended Medications -------- 1. Enoxaparin SubCutaneous: 60 mg SubCutaneous Every 12 Hours Recent Lab Results: Results: CBC: 02/26/2023 06:35 \ Hgb / \ 13.0 L / WBC Plt 8.2 208 / Hct \ / 39.4 L \ RBC: 4.23 L MCV: 93 CMP: 02/26/2023 06:35 NA+ Cl- BUN / 134 L 101 14 / -------- Glucose --- 103 H K+ HCO3- Creat \ 4.0 24 0.80 \ \ T Bili / \ 2.0 H / AST x ---- x ALT 30 x ---- x 45 / Alk P \ / 64 \ Calcium : 8.1 L Anion Gap : 13 Albumin : 3.4 T Protein : 5.6 L Assessment and Plan: Daily Risk Screen: Does patient have an indwelling urinary catheteryes Plan for indwelling urinary catheter removal todayyes Comorbidities: Comorbidityobesity Obesitymorbid obesity (BMI 40+) BMI49.13 Code Status: Code StatusFull Code Assessment: ABIODUN CERDA is a 62 year old Male who is s/p Open Remnant Choly with cholangiogram for gallstones doing well post-operatively. Plan: Neuro: -Scheduled tylenol - PRN Tramadol/ oxy Cardio: -Monitor vitals Q4 -Hold home amlodipine and lisinopril Resp: -OOB -Continue home BIPAP GI: - soft diet : - dc ivf - dc aldrich -Start Flomax ID: -No indication for abx at this time Ppx: -SCD's, Lvx Dispo: - dispo tomorrow without drain Patient seen and discussed with fellow, Dr. Quach, and attending, Dr. Vj Yeung MD General Surgery PGY2 [facility] [id number] Attestation: Note Completion: I am a: Resident/Fellow Attending AttestationI saw and evaluated the patient. I personally obtained the noriega and critical portions of the history and physical exam or was physically present for noriega and critical portions performed by the resident/fellow. I reviewed the resident/fellows documentation and discussed the patient with the resident/fellow. I agree with the resident/fellows medical decision making as documented in the note. I personally evaluated the patient [id number] Electronic Signatures: Fritz Zabala) (Signed 28-Feb-2023 14:35) Authored: Note Completion Co-Signer: Service, Subjective Data, Objective Data, Assessment and Plan, Note Completion Chacha Yeung (Resident)) (Signed 26-Feb-2023 16:48) Authored: Service, Subjective Data, Objective Data, Assessment and Plan, Note Completion Last Updated: 28-Feb-2023 14:35 by Fritz Zabala) Normal [facility] EMR ADDONon 02-26-2023 ADDON CONFIRMATION REQUEST REC'D Normal [facility] Comment on above: Performed By: #### C MP #### [facility] [address] [place] [address] Laboratory - Chemistry and C hemistry - challengeon 02-26-2023 Albumin BCP dye [Mass/Vol] 3.4 g/dL 3.4 - 5.0 VR-Qagukfz-Lml well 2099 Work Phone: ALP [Catalytic activity/Vol] 64 U/L 33 - 136 CF-Tbwszpt-Tkg well 2099 Work Phone: ALT With P-5'-P [Catalytic activity/Vol] 45 U/L 10 - 52 ID-Iavngiy-Irq well 2099 Work Phone: Comment on above: Patients treated wit h Sulfasalazine may generate falsely decreased results for ALT. Anion gap [Moles/Vol] 13 mmol/L 10 - 20 WZ-Xshbpsw-Qbr well 2099 Work Phone: AST With P-5'-P [Catalytic activity/Vol] 30 U/L 9 - 39 ZJ-Yrdqbgb-Dkr well 2099 Work Phone: Bilirubin [Mass/Vol] 2.0 mg/dL above high threshold 0.0 - 1.2 YP-Ofzwaoz-Otj well 2099 Work Phone: Calcium [Mass/Vol] 8.1 mg/dL below low threshold 8.6 - 10.6 AB-Mnaktnm-Pvn well 2099 Work Phone: Chloride [Moles/Vol] 101 mmol/L 98 - 107 MG-S urgery-Sergo well 2099 Work Phone: CO2 [Moles/Vol] 24 mmol/L 21 - 32 MG-Surger y-Sergo well 2099 Work Phone: Creatinine [Mass/Vol] 0.80 mg/dL See Below NM-Sxzckjh-Hug well 2099 Work Phone: Comment on above: Reference Range: 0.5 0 - 1.30 Glucose [Mass/Vol] 103 mg/dL above high threshold 74 - 99 KB-Mhrsewm-Ddr well 2099 Work Phone: Potassium [Moles/Vol] 4.0 mmol/L 3.5 - 5.3 BQ-Kfwvfzr-Pck well 2099 Work Phone: Protein [Mass/Vol] 5.6 g/dL below low threshold 6.4 - 8.2 EV-Rjcqbns-Oeq well 2099 Work Phone: Sodium [Moles/Vol] 134 mmol/L below low threshold 136 - 145 FY-Xkcsdkg-Tsz well 2099 Work Phone: Urea nitrogen [Mass/Vol] 14 mg/dL 6 - 23 UW-Thtsggv-Rbe well 2099 Work Phone: Laboratory - Hematology and Cell countson 02-26-2023 Erythrocyte distribution width (RBC) [Ratio] 14.1 % See Below FO-Nscrttk-Oup well 2099 Work Phone: Comment on above: Reference Range: 11. 5 - 14.5 Hematocrit (Bld) [Volume fraction] 39.4 % below low threshold See Below MC-Kgmfycu-Ptf well 2099 Work Phone: Comment on above: Reference Range: 41. 0 - 52.0 Hemoglobin (Bld) [Mass/Vol] 13.0 g/dL below low threshold See Below VU-Lhmqsod-Wxp well 2099 Work Phone: Comment on above: Reference Range: 13. 5 - 17.5 MCHC (RBC) [Mass/Vol] 33.0 g/dL See Below NF-Jiqqtwu-Qah well 2099 Work Phone: Comment on above: Reference Range: 32. 0 - 36.0 MCV (RBC) [Entitic vol] 93 fL 80 - 100 VW-Zwfrjek-Ecu well 2099 Work Phone: Platelets (Bld) [#/Vol] 208 10*3/uL 150 - 450 VZ-Okgjvaf-Uzg well 2099 Work Phone: RBC (Bld) [#/Vol] 4.23 {x10E12/L} below low threshold See Below OY-Pdtprnq-Dbv well 2099 Work Phone: Comment on above: Reference Range: 4.5 0 - 5.90 WBC (Bld) [#/Vol] 8.2 10*3/uL 4.4 - 11.3 MG-Karsten sharifa-Sergo well 2099 Work Phone: MAGNESIUMon 02-26-2023 Magnesium [Mass/Vol] 1.91 mg/dL Normal 1.60 - 2.40 [facility] Comment on above: Performed By: #### M G #### [facility] [address] [place] [address] Magnesium, Serumon Magnesium [Mass/Vol] 1.91 mg/dL See Below MG-S urgery-Sergo well 2099 Work Phone: Comment on above: Reference Range: 1.6 0 - 2.40 No Panel Informationon 02-26 >90 >90 DY-Uydkolj-Aig well 2099 Work Phone: Comment on above: CALCULATIONS OF NITHYA MATED GFR ARE PERFORMED USING THE 2020 CKD-EPI STUDY REFIT EQUATION WITHOUT THE RACE VARIABLE FOR THE IDMS-TRACEABLE CREATININE METHODS.https://jasn.asnjournals.org/content//ASN .6507768413 0.0 {/100_WBC} 0.0-0.0 MG-Surgery -Sergo well 2099 Work Phone: Admission Risk Screen - Adul ton 02-25-2023 Admission Risk Screen - Adult Allergies: Allergies: No Known Allergies: Patient Verification: New W ID Band Applied in my Departmentyes Patient Identity Verified Bypatient ID Band FULL Name, include Middle, spelling matches patient's ID used for verificationyes ID Band Matches Patient ID used for Verficationyes ID Band MRN Matches EMR MRNyes Visitor Restriction: Coronavirus Visitor Restriction: Reasonable restrictions to in-person visitors will be observed due to current coronavirus pandemic. Travel History: COVID-19 Screening Completedno exposure or symptoms Travel or Exposure Past 30 DaysNO travel to International locations in the past 30 days Ebola AlertFor Ebola-like Symptoms: Isolate Patient and Notify Provider/Undercutter For Contact: Notify Provider/Undercutter Advance Directive: Advance Directive/DNRno Advance Directive Information Givenpatient/family declined Haque Fall Screen: History of falling (immediate or previous)no (0) Secondary Diagnosisyes (15) Intravenous Therapy/ Heparin/Saline Lockyes (20) Gait/Transferringweak (10) Ambulatory Aidsnone/bedrest/nurse assist (0) Mental Statusoriented to own ability (0) Score: Low risk (<25). Moderate risk (25-44). High risk (>44).45 Haque InterventionsHIGH INTERVENTIONS *Low and Moderate Interventions Plus: * supervised toileting at all times Family Violence Screen: Are you or have you been threatened or abused physically, emotionally, or sexually by anyoneno Do you feel UNSAFE going back to the place where you are livingno Clinical assessment: Are there any apparent signs of injuries/behaviors that could be related to abuse/neglectno Social Service Consult for abuse/neglect needed this visitno Functional Screen: Functional Screen: In the recent/past 2-4 weeks, patient or family have noticedno issues that require a speech/language consult at this time AM-PAC- Basic Mobility/Daily Activity: Patient baseline bedboundno Turning from your back to your side while in a flat bed without using bedrailsa little Moving from lying on your back to sitting on the side of a flat bed without using bedrailsa little Moving to and from bed to chair (including a wheelchair)a little Standing up from a chair using your arms (e.g. wheelchair or bedside chair)a little To walk in hospital rooma lot Climbing 3-5 steps with railinga lot Basic Mobility - Total Score16 Learning Assessment (Patient): Patient is Able to be Assessed for Learningyes Factors Influencing Readiness to Learnmotivation lacking Factors that Impact Ability to Learnnone Devices/Methods Used to Communicatenone Learning Preferencesverbal instruction Cultural Considerationsnone Developmental Considerationsnone Yarsanism Considerationsnone Learning Assessment (Other Learner): Other learner availableno Depression Screen: During the past month, have you often been bothered by feeling down, depressed or hopelessno During the past month, have you often had little interest or pleasure in doing thingsno Have you had any thoughts of harming anyone elseno Gifford Suicide: Risk Screen Not Applicable/Able to Answerable to be screened In the Past Month: Have you wished you were or could go to sleep and not wake upno In the Past Month: Have you had any actual thoughts of killing yourselfno Lifetime: Have you ever done, started to do, or prepared to do anything to end your lifeno Gifford Suicide Risknegative Adult Nutrition Screen: Have you recently lost weight without tryingno Have you been eating poorly because of a decreased appetiteno Malnutrition Screening Tool Score0 Malnutrition Screening Tool RiskMST = 0 or 1 Not at risk. Eating well with little or no weight loss Nutrition Consult needed this visitno Can Patient Participate in Room Serviceyes Patient requires Paper Dishes/Plastic Utensilsno Pain Screen: Pain Scalenumerical 0-10 Pain Scale Educationteaching provided Current Pain Level0 = None Acceptable Pain Level4 = Moderate Expression of Pain (nonverbal)none Chronic Painno Spiritual Screen: Are there any cultural, spiritual, sikh practices/values/needs that are important for us to knowno CAGE: Is this an injured patient at a Trauma Center ([facility]/[place]/[facility]): no Vaccinations: Vaccination - Influenza Vaccination Screen: Is it flu season (between and December 10)No Vaccination - Pneumonia Vaccination Screen: Patient has received a previous pneumonia vaccine:no/unknown... Immunocompetent persons with underlying chronic conditions or reside in terminal make up operator care facilitiesnone of these conditions Persons with Functional or Anatomic Asplenianone of these conditions Immunocompromised Personsnone of these conditions Pneumonia vaccine NOT indicated due to:patient/caregiver refusal at this time Zack: Skin - Zack Scale: B (more content not included)... Normal [facility] CBCon 02-25-2023 Erythrocyte distribution width (RBC) [Ratio] 14.1 % Normal 11.5 - 14.5 [facility] Comment on above: Performed By: #### H EPFP #### [facility] [address] [place] [address] Hematocrit (Bld) [Volume fraction] 42.4 % Normal 41.0 - 52.0 [facility] Comment on above: Performed By: #### H EPFP #### [facility] [address] [place] [address] Hemoglobin (Bld) [Mass/Vol] 14.1 g/dL Normal 13.5 - 17.5 [facility] Comment on above: Performed By: #### H EPFP #### [facility] [address] [place] [address] MCHC (RBC) [Mass/Vol] 33.3 g/dL Normal 32.0 - 36.0 [facility] Comment on above: Performed By: #### H EPFP #### [facility] [address] [place] [address] MCV (RBC) [Entitic vol] 92 fL Normal 80 - 100 [facility] Comment on above: Performed By: #### H EPFP #### [facility] [address] [place] [address] NUCLEATED RBC 0.0 /100 WBC Normal 0.0-0.0 [facility] [place] Comment on above: Performed By: #### H EPFP #### [facility] [address] [place] [address] Platelets (Bld) [#/Vol] 254 10*3/uL Normal 150 - 450 [facility] Comment on above: Performed By: #### H EPFP #### [facility] [address] [place] [address] RBC 4.61 x10E12/L Normal 4.50 - 5.90 [facility] Comment on above: Performed By: #### H EPFP #### [facility] [address] [place] [address] WBC (Bld) [#/Vol] 11.1 10*3/uL Normal 4.4 - 11.3 [facility] Comment on above: Performed By: #### H EPFP #### [facility] [address] [place] [address] COMPREHENSIVE PANELon 2022 Albumin [Mass/Vol] 3.7 g/dL Normal 3.4 - 5.0 [facility] Comment on above: Performed By: #### C MP #### [facility] [address] [place] [address] ALP [Catalytic activity/Vol] 66 U/L Normal 33 - 136 [facility] Comment on above: Performed By: #### C MP #### [facility] [address] [place] [address] ALT [Catalytic activity/Vol] 60 U/L High 10 - 52 [facility] Comment on above: Result Comment: Lorna ents treated with Sulfasalazine may generate falsely decreased results for ALT. Performed By: #### C MP #### [facility] [address] [place] [address] Anion gap [Moles/Vol] 13 mmol/L Normal 10 - 20 [facility] Comment on above: Performed By: #### C MP #### [facility] [address] [place] [address] AST [Catalytic activity/Vol] 46 U/L High 9 - 39 [facility] Comment on above: Performed By: #### C MP #### [facility] [address] [place] [address] Bilirubin [Mass/Vol] 1.4 mg/dL High 0.0 - 1.2 [facility] Comment on above: Performed By: #### C MP #### [facility] [address] [place] [address] Calcium [Mass/Vol] 8.5 mg/dL Low 8.6 - 10.6 [facility] Comment on above: Performed By: #### C MP #### [facility] [address] [place] [address] Chloride [Moles/Vol] 106 mmol/L Normal 98 - 107 [facility] Comment on above: Performed By: #### C MP #### [facility] [address] [place] [address] Creatinine [Mass/Vol] 0.78 mg/dL Normal 0.50 - 1.30 [facility] Comment on above: Performed By: #### C MP #### [facility] [address] [place] [address] eGFR MALE >90 Normal >90 [facility] Comment on above: Result Comment: CALC ULATIONS OF ESTIMATED GFR ARE PERFORMED USING THE 2020 CKD-EPI STUDY REFIT EQUATION WITHOUT THE RACE VARIABLE FOR THE IDMS-TRACEABLE CREATININE METHODS. https://jasn.asnjournals.org/content/early/ASN.0492392 988 Performed By: #### C MP #### [facility] [address] [place] [address] Glucose [Mass/Vol] 112 mg/dL High 74 - 99 [facility] Comment on above: Performed By: #### C MP #### [facility] [address] [place] [address] HCO3 (Bld) [Moles/Vol] 24 mmol/L Normal 21 - 32 [facility] Comment on above: Performed By: #### C MP #### [facility] [address] [place] [address] Potassium [Moles/Vol] 4.4 mmol/L Normal 3.5 - 5.3 [facility] Comment on above: Performed By: #### C MP #### [facility] [address] [place] [address] Protein [Mass/Vol] 6.0 g/dL Low 6.4 - 8.2 [facility] Comment on above: Performed By: #### C MP #### [facility] [address] [place] [address] Sodium [Moles/Vol] 139 mmol/L Normal 136 - 145 [facility] Comment on above: Performed By: #### C MP #### [facility] [address] [place] [address] Urea nitrogen [Mass/Vol] 18 mg/dL Normal 6 - 23 [facility] Comment on above: Performed By: #### C MP #### [facility] [address] [place] [address] Daily Progress Note-Anesthes ia - Painon 02-25-2023 Daily Progress Note-Anesthesia - Pain Service: Anesthesia - Pain Subjective Data: ABIODUN CERDA is a 62 year old Male who is Hospital Day # 2 and POD #1 for Open Remnant Choly with 'Gram. Postop Pain HPI - Palliative: relieved with IV analgesics and regional local anesthetics Provocative: movement Quality: burning and aching Radiation: none Severity: 0-1/10 Timing: constant 24-HOUR OPIOID CONSUMPTION: Hydromorphone 0.2 mg. Objective Data: Objective Information: T PRBPMAPSpO2 [id number]/[id number]% Date/Time02/25 11: 11: 11: 11: 21: 11:55 Range(36.1C - 36.7C ) (66 - 77 ) (18 - 18 ) (115 - 130 )/ (68 - 81 ) (88 - 88 ) (92% - 97% ) As of 25-Feb-2023 11:55:00, patient is on 1 L/min of oxygen via room air. Pain reported at 02/25 10:34: 2 = Mild ---- Intake and Output ----- Mn/Dy/Year TimeIntakeOutputNet Feb 25, 2023 6:00 [id number] Feb 24, 2023 10:00 [id number] The Intake and Output Totals for the last 24 hours are: [facility] [id number] Physical Exam Narrative: Physical Exam: Physical Exam: Constitutional: no distress, alert and cooperative Eyes: clear sclera Head/Neck: No apparent injury, trachea midline Respiratory/Thorax: Patent airways, thorax symmetric, breathing comfortably Cardiovascular: no pitting edema Gastrointestinal: Nondistended Musculoskeletal: ROM intact Extremities: no clubbing Neurological: alert, spears x4 Psychological: Appropriate affect. Recent Lab Results: Results: CBC: 02/25/2023 06:55 \ Hgb / \ 14.1 / WBC Plt 11.1 254 / Hct \ / 42.4 \ RBC: 4.61 MCV: 92 CMP: 02/25/2023 06:55 NA+ Cl- BUN / 139 106 18 / -------- Glucose --- 112 H K+ HCO3- Creat \ 4.4 24 0.78 \ \ T Bili / \ 1.4 H / AST x ---- x ALT 46 Hx ---- x 60 H / Alk P \ / 66 \ Calcium : 8.5 L Anion Gap : 13 Albumin : 3.7 T Protein : 6.0 L Assessment and Plan: Daily Risk Screen: Does patient have an indwelling urinary cathetern/a consulting service Does patient have a central linen/a consulting service Code Status: Code StatusFull Code Assessment: ABIODUN CERDA is a 62 year old Male with PMH significant for cholelithiasis, HTN, ABDULKADIR, CONNER, GERD, & previous DVT who presents 02/24 for open cholecystectomy with Dr. Richardson. Acute Pain consulted for block for postoperative pain control. Bilateral SUDEEP blocks/catheters performed preoperatively 02/24 Plan - Ambit to be connected with Ropivacaine infusion at 7cc/hr per side. Refilled on 02/25 - Please avoid Lidoderm patches while catheters are in place - Pain medications per primary team - Will see on POD1 [place] [phone] ph [phone] Attestation: Note Completion: I am a: Resident/Fellow Attending AttestationI saw and evaluated the patient. I personally obtained the noriega and critical portions of the history and physical exam or was physically present for noriega and critical portions performed by the resident/fellow. I reviewed the resident/fellows documentation and discussed the patient with the resident/fellow. I agree with the resident/fellows medical decision making as documented in the note. I personally evaluated the patient [id number] Electronic Signatures: Chavez Evans () (Signed 01-Mar-2023 09:21) Authored: Note Completion Co-Signer: Subjective Data, Assessment and Plan Fritz Gordon (Resident)) (Signed 25-Feb-2023 14:16) Authored: Service, Subjective Data, Objective Data, Assessment and Plan, Note Completion Last Updated: 01-Mar-2023 09:21 by Chavez Evans) [facility] Daily Progress Note-Surgical Oncologyon 02-25-2023 Daily Progress Note-Surgical Oncology Service: Surgical Oncology Subjective Data: ABIODUN CERDA is a 62 year old Male who is Hospital Day # 2 and POD #1 for Open Remnant Choly with 'Gram. NAEO. Pain well controlled. Denies n/v. Objective Data: Objective Information: T PRBPMAPSpO2 [id number]/051807% Date/Time02/25 11:5502/25 11:5502/25 11:5502/25 11: 21: 11:55 Range(36.1C - 36.7C ) (66 - 77 ) (18 - 18 ) (115 - 130 )/ (68 - 81 ) (88 - 88 ) (92% - 97% ) As of 25-Feb-2023 11:55:00, patient is on 1 L/min of oxygen via room air. Pain reported at 02/25 10:34: 2 = Mild ---- Intake and Output ----- Mn/Dy/Year TimeIntakeOutputNet Feb 25, 2023 2:00 [id number] Feb 25, 2023 6:00 [id number] Feb 24, 2023 10:00 [id number] The Intake and Output Totals for the last 24 hours are: IntakeOutputNet [id number] Physical Exam Narrative: Physical Exam: General: Appears comfortable, in no distress. Neuro: Awake and alert, talking freely. Skin: Warm, dry. Not jaundiced Lungs: chest expansion symmetrical, on bipap CV: regular rate and rhythm Abdomen: soft, appropriately tender, RUQ dressing in place without strikethrough, KENNETH drain in place draining SS fluid Extremities: SCDs on, positive pulses, no edema. Recent Lab Results: Results: CBC: 02/25/2023 06:55 \ Hgb / \ 14.1 / WBC Plt 11.1 254 / Hct \ / 42.4 \ RBC: 4.61 MCV: 92 CMP: 02/25/2023 06:55 NA+ Cl- BUN / 139 106 18 / -------- Glucose --- 112 H K+ HCO3- Creat \ 4.4 24 0.78 \ \ T Bili / \ 1.4 H / AST x ---- x ALT 46 Hx ---- x 60 H / Alk P \ / 66 \ Calcium : 8.5 L Anion Gap : 13 Albumin : 3.7 T Protein : 6.0 L Assessment and Plan: Daily Risk Screen: Does patient have an indwelling urinary catheteryes Plan for indwelling urinary catheter removal todayno The patient continues to require indwelling urinary catheterization for perioperative use for selected surgical procedures Comorbidities: Comorbidityobesity Obesitymorbid obesity (BMI 40+) BMI49.13 Code Status: Code StatusFull Code Assessment: ABIODUN CERDA is a 62 year old Male who is s/p Open Remnant Choly with cholangiogram for gallstones doing well post-operatively. Plan: Neuro: -Continue PAPER STACKER, toradol, tylenol Cardio: -Monitor vitals Q4 -Hold home amlodipine and lisinopril Resp: -OOB -Continue home BIPAP GI: -CLD : -LR@75 -Maintain Aldrich -Start Flomax ID: -No indication for abx at this time Ppx: -SCD's, Lvx Dispo: -RNF Discussed with Dr. Dylan Guzman MD General Surgery, PGY-1 Surgical Oncology Attestation: Note Completion: I am a: Resident/Fellow Attending AttestationI reviewed the resident/fellows documentation and discussed the patient with the resident/fellow. I agree with the resident/fellows medical decision making as documented in their note with the exception/addition of the following: Comments/ Additional Findings POD 1 Off campus at clinic. Pt seen by fellow who called me. No issues/concerns CLD today OOB Proph Lovenox 60 BID Electronic Signatures: Chavez Richardson) (Signed 25-Feb-2023 16:23) Authored: Assessment and Plan, Note Completion Co-Signer: Service, Subjective Data, Objective Data, Assessment and Plan, Note Completion Evan Guzman (Resident)) (Signed 25-Feb-2023 15:55) Authored: Service, Subjective Data, Objective Data, Assessment and Plan, Note Completion Last Updated: 25-Feb-2023 16:23 by Chavez Richardson) Normal [facility] Discharge Planning [id number] 0 02-25-2023 Discharge Planning Note2 Discharge Planning: Needs Prior to Discharge (ex. Home Care Orders, IV/O2 prescriptions) TBD Discharge Barriersnone Planned Dispositionhome Discharge DestinationHome pending PT recs Anticipated Discharge [id number] Discharge Planning 02/25/23 1256 Met with pt and introduced myself as career developer and member of the care transitions team for discharge planning. Patient lives with his in a house with stairs, patient states he is able to walk stairs with assist. Patient is independent with ADLs, does not use assistive devices. Patient uses Bipap at night. Patient feels safe at home. Demographics and contacts verified. Care transitions team will follow for patient's discharge needs. Arti Jett RN TCC Transitional Care Coordination Progress Note: Patient was discussed during interdisciplinary rounds. Team members present: PHOTO PRODUCER, Assist Nurse Information And Referral Director, RD, TCC, SW Plan per medical team: POD #1 s/p Valerie, KENNETH drain Payer: Aultcare/Aultcare Status: Inpatient Discharge disposition: Home pending PT recs Potential barriers: none ADOD: 02/27/23 Arti Jett RN TCC - Doc halo Nursing Note: Discharge Planning Discharge Date/Time: 02/27/23 1045 Reviewed with pt and family DC instructions, diet, activity, s/s to report to MD, FU appt with MD, prescriptions/new medications, PI Sheets verbalized understanding. Skills Taught: Demonstrated ability to administer lovenox shot. Supplies Given: lovenox supplies Pt will call MD with any questions or concerns. See EMR for complete DC instructions. (E) DC home via car. (P) DC Planning complete. RN Signature: Rodolfo Driver 03/01/23 7902 MOSES received call from Donya with [facility] ( ) and the are able to accept patient for PT services. [facility] and records sent via care port per AARON Castillo's request. AARON notified of accepting HC agency. --Margo Conrad LPN doc [facility] [id number] Assessment: Discharge Planning Assessment [id number] Discharge Planning Assessment Completed byArti Jett RN Primary Contact Name and NumberKat Zaida, () [phone] Prior Level of FunctioningIndependent does not use assistive devices Lives Withspouse(1) Living Arrangementshouse(1) Stated Reason for Admissionprocedure(1) Arrived FromOR (1) Medhat Choudhury MD [facility] [place] Recent Falls/ Injury/ Need Assist with AmbulationDenies falls DME Supplier Name/NumberN/A Home Care Agency/Support ServicesN/A Diabetic/Supplies NeededN/A Hemodialysis ScheduleN/A Other NeedsN/A Resource/Environmental Concernsnone(1) Anticipated Transition Tohome(1) Services Anticipated at Transitionnone(1) PCP Last Date Seen3-4 weeks ago InsuranceAultcare/Aultca re Anticipated Changes Related to Illnessnone Equipment Needed After Dischargenone Anticipated Discharge Facility/Level of Care Needs.Home Social Determinants of Health IdentifiedN/A Special ConsiderationsN/A Transportation Home Who/Yoel Cerda () Home O2/BiPAP/CPAPBiPAP Home O2 [facility] Discharge Documentation: Discharge/Transfer Date/Lrcp29-Vob-2902 10:45 Discharged Accompanied Byspouse Transportation Methodprivate car Discharge Modewheelchair Code StatusCode Status order at time of discharge: Full Code Discharge Order Writtenyes [place] DNR Form Sent with Patient and/or Familyno Final Disposition.Home Electronic Signatures: Margo Conrad (MOSES) (Signed 01-Mar-2023 16:15) Authored: Discharge Planning Patricia Osborne (RN) (Signed 01-Mar-2023 12:40) Authored: Discharge Planning Arti Jett (RN) (Signed 25-Feb-2023 13:03) Authored: Discharge Planning, Assessment Rodolfo Driver (RN) (Signed 27-Feb-2023 13:14) Authored: Discharge Planning, Discharge Documentation Last Updated: 01-Mar-2023 16:15 by Margo Conrad (MOSES) References: 1. Data Referenced From Patient Profile - Adult v2 24-Feb-2023 22:52 Normal [facility] Discharge Imieozb0ox -16-2 023 Discharge Profile2 Discharge Orders: Anticipated Discharge Date: Anticipated Discharge [id number] Problem List: Additional Dx: Gallstones: Catalog Name: Calculus of gallbladder without cholecystitis without obstruction Significant Events: Surgical Procedure: Clinical Events This Visit, 24-Feb-2023, Open Remnant Choly with [facility] Providers: Provider RoleProvider Name Nurse PractitionerJusta Blackman Hannah E AttendingHardacre, Jeffrey Code Status: Code Status at Discharge: Full Code DNR Order Additional Instructions (peds only): Activity: activity as tolerated. May shower. May not return to school/work Instructions: May not drive while taking narcotics. No pushing, pulling, or lifting objects greater than 10 pounds. Diet: Dietresume normal diet Wound Care 1: Wound Siteabdomen Wound Typesurgical incision Cleanse Withsoap and water Cover Withno dressing, leave open to air Instructionsno lotions, creams, or tub soaks Other InstructionsYou have lamont along your incision. These will come out in 1-2 weeks. This incision may get wet, pat dry and cover as needed to protect your clothing, otherwise you may leave this incision open to air. Hospital Course (Home Care/Gold Form): Hospital Course: Hospital Course: include significant abnormal lab values 62 yr old male with gallstones who underwent open remnant cholecystectomy on 02.[address] Richardson. Post-op course uncomplicated. Aldrich removed POD 2 and passed TOV. Diet advanced as tolerated. IV medication transitioned to oral with adequate PO intake. Surgical drain removed POD 3. DC home POD 3. Home Care Orders: Face to Face Certification: Home Care Services Needed: yes Provider to Follow After Discharge: Primary Surgeon Skilled Disciplines Ordered: PT Face to Face Encounter Completed: yes Date of Encounter: 25-Feb-2023 Medical Necessity for Homecare (based on clinical findings): Physical therapy needed to restore pt to previous level of functioning s/p cholecystectomy Homebound Status: homebound Homebound Due to:: Pt is temporarily homebound s/p cholecystectomy Face to Face Completed and Home Care Orders Reviewed: I certify that this patient is under my care. I have reviewed the information included in the face to face and certify that the home care services ordered are medically necessary for this patient. Home Care Services: Home Care Skilled ServiceRehab (PT/OT/SP eval and treat) Rehab: [facility] Visitday after discharge Provider FINAL REVIEW of Orders: Final Review: Final Review of Medication Reconciliation and Orders Completedby Physician Reviewing ProviderChacha Yeung MD (Resident) at 27-Feb-2023 16:14:07 Appointments: Follow-Up Appointment 01: Physician/Dept/Naseem Richardson Reason for Referralpost-op appointment Scheduled Date/[id number] 10:[address] [facility] [address] [facility] [address] Phone [phone] Electronic Signatures: Justa Blackman (ELASTIC ATTACHER OVERLOCK-PHOTO PRODUCER) (Signed 25-Feb-2023 12:59) Authored: Discharge Orders, Hospital Course (Home Care/Gold Form), Home Care Orders, Provider FINAL REVIEW of Orders, Appointments, Gold Form - Elastic Attacher Overlock Summary Chacha Yeung ( (Resident)) (Signed 27-Feb-2023 16:14) Authored: Discharge Orders, Hospital Course (Home Care/Gold Form), Provider FINAL REVIEW of Orders Last Updated: 27-Feb-2023 16:14 by Chacha Yeung ( (Resident)) Normal [facility] Laboratory - Chemistry and C hemistry - challengeon 02-25-2023 Albumin BCP dye [Mass/Vol] 3.7 g/dL 3.4 - 5.0 ON-Qwqfpqv-Fmj well 2099 Work Phone: ALP [Catalytic activity/Vol] 66 U/L 33 - 136 UP-Lyblnca-Hkx well 2099 Work Phone: ALT With P-5'-P [Catalytic activity/Vol] 60 U/L above high threshold 10 - 52 BV-Bdnkggk-Fsd well 2099 Work Phone: Comment on above: Patients treated wit h Sulfasalazine may generate falsely decreased results for ALT. Anion gap [Moles/Vol] 13 mmol/L 10 - 20 FV-Rkdskdv-Mgb well 2099 Work Phone: AST With P-5'-P [Catalytic activity/Vol] 46 U/L above high threshold 9 - 39 NW-Jasptzj-Cis well 2099 Work Phone: Bilirubin [Mass/Vol] 1.4 mg/dL above high threshold 0.0 - 1.2 LT-Eyzoxog-Anh well 2099 Work Phone: Calcium [Mass/Vol] 8.5 mg/dL below low threshold 8.6 - 10.6 MR-Jsiogjs-Vww well 2099 Work Phone: Chloride [Moles/Vol] 106 mmol/L 98 - 107 MG-S urgery-Sergo well 2099 Work Phone: CO2 [Moles/Vol] 24 mmol/L 21 - 32 MG-Surger y-Sergo well 2099 Work Phone: Creatinine [Mass/Vol] 0.78 mg/dL See Below DL-Jtvmnuf-Mmf well 2099 Work Phone: Comment on above: Reference Range: 0.5 0 - 1.30 Glucose [Mass/Vol] 112 mg/dL above high threshold 74 - 99 GV-Jfgvuhz-Yqt well 2099 Work Phone: Potassium [Moles/Vol] 4.4 mmol/L 3.5 - 5.3 EO-Lbaittm-Awc well 2099 Work Phone: Protein [Mass/Vol] 6.0 g/dL below low threshold 6.4 - 8.2 DE-Fwyhkkm-Xlu well 2099 Work Phone: Sodium [Moles/Vol] 139 mmol/L 136 - 145 MG-Karsten sharifa-Sergo well 2099 Work Phone: Urea nitrogen [Mass/Vol] 18 mg/dL 6 - 23 IQ-Mrhlwcy-Cij well 2099 Work Phone: Laboratory - Hematology and Cell countson 02-25-2023 Erythrocyte distribution width (RBC) [Ratio] 14.1 % See Below WT-Mkwliik-Dsn well 2099 Work Phone: Comment on above: Reference Range: 11. 5 - 14.5 Hematocrit (Bld) [Volume fraction] 42.4 % See Below FK-Velbpym-Cgs well 2099 Work Phone: Comment on above: Reference Range: 41. 0 - 52.0 Hemoglobin (Bld) [Mass/Vol] 14.1 g/dL See Below UW-Fythytg-Zrx well 2099 Work Phone: Comment on above: Reference Range: 13. 5 - 17.5 MCHC (RBC) [Mass/Vol] 33.3 g/dL See Below AH-Tjbbhdm-Lay well 2099 Work Phone: Comment on above: Reference Range: 32. 0 - 36.0 MCV (RBC) [Entitic vol] 92 fL 80 - 100 GM-Ozbppin-Pnk [facility] 2099 Work Phone: Platelets (Bld) [#/Vol] 254 10*3/uL 150 - 450 QT-Zicvtad-Cvr [facility] 2099 Work Phone: RBC (Bld) [#/Vol] 4.61 {x10E12/L} See Below MG -Surgery-Sergo well 2099 Work Phone: Comment on above: Reference Range: 4.5 0 - 5.90 WBC (Bld) [#/Vol] 11.1 10*3/uL 4.4 - 11.3 MG-Koenig rgery-[facility] 2099 Work Phone: MAGNESIUMon 02-25-2023 Magnesium [Mass/Vol] 2.04 mg/dL Normal 1.60 - 2.40 [facility] Comment on above: Performed By: #### C MP #### [facility] [address] [place] [address] Magnesium, Serumon Magnesium [Mass/Vol] 2.04 mg/dL See Below MG-S urgery-[facility] 2099 Work Phone: Comment on above: Reference Range: 1.6 0 - 2.40 No Panel Informationon 02-25 >90 >90 JQ-Gvopjic-Uwr well 2099 Work Phone: Comment on above: CALCULATIONS OF NITHYA MATED GFR ARE PERFORMED USING THE 2020 CKD-EPI STUDY REFIT EQUATION WITHOUT THE RACE VARIABLE FOR THE IDMS-TRACEABLE CREATININE METHODS.https://jasn.asnjournals.org/content//ASN .4051246718 0.0 {/100_WBC} 0.0-0.0 MG-Surgery -Sergo [facility] 2100 Work Phone: Order Reconciliationon 02-25 Order Reconciliation Page 1 Discharge Reconciliation Document Reconciliation Type: Discharge requested on behalf of Chacha Yeung (Resident) done by Chacha Yeung ( (Resident)) Discharge - Partial Reconciliation: 25-Feb-2023 12:31 by: Justa Blackman ([facility]) Discharge - Reconciliation: 27-Feb-2023 09:28 by: Chacha Yeung ( (Resident)) Home Medications EnteredHOME MEDICATIONS AT DISCHARGE DateReconciliation Comment/ Additional Information amLODIPine 10 mg oral tablet 1 tab(s) orally once a day 25-Feb-2023 09:30 amLODIPine 10 mg oral tablet 1 tab(s) orally once a day 25-Feb-2023 09:30 amLODIPine 10 mg oral tablet is continued as amLODIPine 10 mg oral tablet lisinopril 20 mg oral tablet 1 tab(s) oral once a day 22-Feb-2023 15:02 lisinopril 20 mg oral tablet 1 tab(s) oral once a day 22-Feb-2023 15:02 lisinopril 20 mg oral tablet is continued as lisinopril 20 mg oral tablet Multivitamin 1 tab(s) orally once a day, , Calcium 1000mg, Magnesium 5mg, Vitamin D3 15mcg, Zinc 140mg 25-Feb-2023 09:32 Multivitamin 1 tab(s) orally once a day, , Calcium 1000mg, Magnesium 5mg, Vitamin D3 15mcg, Zinc 140mg 25-Feb-2023 09:32 Multivitamin is continued as Multivitamin omega 3 1000mg capsules 2 cap(s) orally once a day 25-Feb-2023 09:31 omega 3 1000mg capsules 2 cap(s) orally once a day 25-Feb-2023 09:31 omega 3 1000mg capsules is continued as omega 3 1000mg capsules Current OrdersDateHOME MEDICATIONS AT DISCHARGE DateReconciliation Comment/ Additional Information Acetaminophen Tablet (TYLENOL)DOSE = 650 mg Oral Every 6 Hours 25-Feb-2023 06:41 acetaminophen 325 mg oral tablet 2 tab(s) orally every 6 hours 25-Feb-2023 12:29 Acetaminophen is continued as acetaminophen 325 mg oral tablet Docusate 50 mg - Senna 8.6 mg Tablet (SENOKOT S)DOSE = 2 tablet(s) Oral 2 Times a Day 26-Feb-2023 06:19 sennosides-docusate 8.6 mg-50 mg oral tablet 2 tab(s) orally 2 times a day 27-Feb-2023 09:27 Prescription is created for sennosides-docusate 8.6 mg-50 mg oral tablet Enoxaparin SubCutaneous (LOVENOX)DOSE = 60 mg SubCutaneous Every 12 Hours 24-Feb-2023 15:33 Enoxaparin SubCutaneous is not required HYDROmorphone PAPER STACKER 15 mg/ NaCL 0.9% 30 mL (DILAUDID IV PAPER STACKER)DEMAND/ PAPER STACKER Dose = 0.2 mgDELAY/ Lockout Time Period = 6 minutesOne Hour Dose Limit = 2.6 mg/hrBREAKTHROUGH Dose: Nurse May Administer 0.6 mg Every 1 Hour PRNIf patient has received 3 D 24-Feb-2023 15:33 HYDROmorphone PAPER STACKER 15 mg/ NaCL 0.9% 30 mL is not required Ketorolac Injectable (TORADOL)DOSE = 15 mg IntraVenous Push Every 6 HoursStop After 10 Doses 25-Feb-2023 09:26 Ketorolac Injectable is not required Lactated Ringers Infusion IV Bag Volume = 1,000 mL Run at: 75 mL/hr IntraVenous 24-Feb-2023 15:33 Lactated Ringers Infusion is not required Naloxone Injectable (NARCAN)DOSE = 0.2 mg IntraVenous Push Once, PRN patient is unarousable, and respiratory rate lessClinician Notes: HOLD PAPER STACKER Infusion and notify H.O. immediately 24-Feb-2023 15:33 Naloxone Injectable is not required oxyCODONE Immediate Release Tablet (OXYIR, ROXICODONE)DOSE = 10 mg Oral Every 6 Hours, PRN Pain - Severe (7-10) 25-Feb-2023 18:13 oxyCODONE Immediate Release is not required Ropivacaine 0.2%/ Ambit Pump 500 mL SolutionPeripheral Nerve FLOW RATE = 6 mL/hrClinician Notes: Dispense premix bag for use with Ambit pump only. 24-Feb-2023 11:16 Ropivacaine 0.2%/ Ambit Pump 500 mL is not required Sodium Chloride 0.9% Injectable Flush via Peripheral LineVolume = 10 mL IntraVenous Flush Every 8 Hours and as Needed 24-Feb-2023 15:33 Sodium Chloride 0.9% Injectable Flush is not required Tamsulosin Capsule (FLOMAX)DOSE = 0.4 mg Oral Daily 25-Feb-2023 08:13 Tamsulosin is not required traMADol Tablet (ULTRAM)DOSE = 50 mg Oral Every 6 Hours, PRN Pain - Mod (4-6) 25-Feb-2023 18:13 traMADol 50 mg oral tablet 1 tab(s) orally every 4 to 6 hours x 7 days, As Needed -for pain , Dx: G89.18 25-Feb-2023 12:30 traMADol reconciled with the existing traMADol 50 mg oral tablet Home Medications Added During Discharge Reconciliation enoxaparin 60 mg/0.6 mL injectable solution 60 milligram(s) subcutaneously 2 times a day All Active Home Medications at time of Discharge Reconciliation: 27-Feb-2023 09:28 acetaminophen 325 mg oral tablet 2 tab(s) orally every 6 hours amLODIPine 10 mg oral tablet 1 tab(s) orally once a day enoxaparin 60 mg/0.6 mL injectable solution 60 milligram(s) subcutaneously 2 times a day lisinopril 20 mg oral tablet 1 tab(s) oral once a day Multivitamin 1 tab(s) orally once a day, , Calcium 1000mg, Magnesium 5mg, Vitamin D3 15mcg, Zinc 140mg omega 3 1000mg capsules 2 cap(s) orally once a day sennosides-docusate 8.6 mg-50 mg oral tablet 2 tab(s) orally 2 times a day traMADol 50 mg oral tablet 1 tab(s) orally every 4 to 6 hours x 7 days, As Needed -for pain , Dx: G89.18 Normal [facility] Patient Profile - Adult v2on 02-25-2023 Patient Profile - Adult v2 Profile: Initial Info: How to be Addressedphil(1) Spoken Language PreferredEnglish (1) Stated Reason for Admissionprocedure Wants Family/Rep Notified of Admissionyes, primary contact Notify PCPnotify PCP Informed of Patient Visiting Rightsyes Arrived FromOR Patient Belongingsremains with patient Patient Belongings Remaining with Patientclothing; cell phone/electronics Medications Brought to Hospitalno General Health: Blood Avoidance/Restrictionsno ne(1) Previous Transfusion Reactionnot applicable(1) Weight in kg150.8 kilogram(s)(2) Weight in bqg002.4 pound(s) Weight Methodactual (measured) Scale Typebed Height in cm175.2 centimeter(s)(2) Height in feet5 feet Height in inches8.98 inch(es) Height Methodstated BMI (kg/m2)49.128 square meter RSP Based Care: How would you like to participate in your carewilingly What is the number one concern for you during this hospitalizationpain What is the most important thing we can do to support you during this hospitalizationassist Is there anything we need to know to best care for younone Substance: Smoking Statusnever smoker Alcohol Usedenies Drug Usedenies Health Mgmt: Symptoms/Conditions Managed at Homecardiovascular; respiratory Cardiovascular Symptoms/Conditionshyper tension Cardiovascular Management Strategiesmedication therapy Cardiovascular Managementmanaged Respiratory Symptoms/Conditionssleep disordered breathing Respiratory Management StrategiesCPAP Respiratory Managementmanaged Relationship/Environ: Resource/Environmental Concernsnone Primary Source of Support/Comfortspouse Lives Withspouse Living Arrangementshouse Services Anticipated at Transitionnone Anticipated Transition Tohome Significant IndicatorsComplete Information Review: Allergies, Home Meds and Significant Events have been Reviewed and Verified with Patient/Familyyes ALLERGY, INTOLERANCE, ADVERSE EVENT: Allergies: No Known Allergies: Active Electronic Signatures: Satnam Rivera (HANNAH) (Signed 24-Feb-2023 23:03) Authored: Initial Info, General Health, RSP Based Care, Substance, Health Mgmt, Relationship/Environ, Additional Information Last Updated: 24-Feb-2023 23:03 by Satnam Rivera (HANNAH) References: 1. Data Referenced From Patient Profile - Preop v3 24-Feb-2023 09:19 2. Data Referenced From 1. Vital Signs 24-Feb-2023 09:19 Normal [facility] ABO/RH GROUP TESTon 02-25-20 23 ABO TYPE A Normal [facility] Comment on above: Performed By: #### V ERAB ####[id number] [place] [address] RH TYPE Negative Normal [facility] Comment on above: Performed By: #### V ERAB ####[id number] [place] [address] CBCon 02-24-2023 Erythrocyte distribution width (RBC) [Ratio] 13.9 % Normal 11.5 - 14.5 [facility] Comment on above: Performed By: #### C BC #### [facility] [address] [place] [address] Hematocrit (Bld) [Volume fraction] 44.5 % Normal 41.0 - 52.0 [facility] Comment on above: Performed By: #### C BC #### [facility] [address] [place] [address] Hemoglobin (Bld) [Mass/Vol] 15.6 g/dL Normal 13.5 - 17.5 [facility] Comment on above: Performed By: #### C BC #### [facility] [address] [place] [address] MCHC (RBC) [Mass/Vol] 35.1 g/dL Normal 32.0 - 36.0 [facility] Comment on above: Performed By: #### C BC #### [facility] [address] [place] [address] MCV (RBC) [Entitic vol] 88 fL Normal 80 - 100 [facility] Comment on above: Performed By: #### C BC #### [facility] [address] [place] [address] NUCLEATED RBC 0.0 /100 WBC Normal 0.0-0.0 [facility] [place] Comment on above: Performed By: #### C BC #### [facility] [address] [place] [address] Platelets (Bld) [#/Vol] 260 10*3/uL Normal 150 - 450 [facility] Comment on above: Performed By: #### C BC #### [facility] [address] [place] [address] RBC 5.03 x10E12/L Normal 4.50 - 5.90 [facility] Comment on above: Performed By: #### C BC #### [facility] [address] [place] [address] WBC (Bld) [#/Vol] 14.3 10*3/uL High 4.4 - 11.3 [facility] Comment on above: Performed By: #### C BC #### [facility] [address] [place] [address] CHOLANGIOGRAPHY, INTAOP Son 02-24-2023 CHOLANGIOGRAPHY, INTAOP S Patient Name: ABIODUN CERDA STUDY: CHOLANGIOGRAPHY, INTAOP S; ; 02/24/2023 5:03 pm INDICATION: intraop cholangiogram . COMPARISON: None. ACCESSION NUMBER(S): [id number] ORDERING CLINICIAN: CHAVEZ RICHARDSON TECHNIQUE: 15 intraoperative fluoroscopic images were obtained for the purposes of intraoperative cholangiogram. FINDINGS: Images demonstrate opacification of the biliary tree with visualization of cystic duct and remnant gallbladder. The common bile duct, common hepatic duct, right and left hepatic ducts as well as the visualized intrahepatic ducts appear unremarkable. IMPRESSION: Intraoperative cholangiogram demonstrating a gallbladder remnant cystic duct. See operative report for full details. I personally reviewed the images/study and I agree with the findings as stated. This study was interpreted at [place], [place]. Electronically signed by: GHULAM HESS MD Normal [facility] COMPREHENSIVE PANELon 2022 Albumin [Mass/Vol] 4.4 g/dL Normal 3.4 - 5.0 [facility] Comment on above: Performed By: #### C MP #### [facility] [address] [place] [address] ALP [Catalytic activity/Vol] 79 U/L Normal 33 - 136 [facility] Comment on above: Performed By: #### C MP #### [facility] [address] [place] [address] ALT [Catalytic activity/Vol] 70 U/L High 10 - 52 [facility] Comment on above: Result Comment: Lorna ents treated with Sulfasalazine may generate falsely decreased results for ALT. Performed By: #### C MP #### [facility] [address] [place] [address] Anion gap [Moles/Vol] 17 mmol/L Normal 10 - 20 [facility] Comment on above: Performed By: #### C MP #### [facility] [address] [place] [address] AST [Catalytic activity/Vol] 64 U/L High 9 - 39 [facility] Comment on above: Performed By: #### C MP #### [facility] [address] [place] [address] Bilirubin [Mass/Vol] 1.5 mg/dL High 0.0 - 1.2 [facility] Comment on above: Performed By: #### C MP #### [facility] [address] [place] [address] Calcium [Mass/Vol] 9.1 mg/dL Normal 8.6 - 10.6 [facility] Comment on above: Performed By: #### C MP #### [facility] [address] [place] [address] Chloride [Moles/Vol] 105 mmol/L Normal 98 - 107 [facility] Comment on above: Performed By: #### C MP #### [facility] [address] [place] [address] Creatinine [Mass/Vol] 0.95 mg/dL Normal 0.50 - 1.30 [facility] Comment on above: Performed By: #### C MP #### [facility] [address] [place] [address] GFR/1.73 sq M.predicted among non-blacks MDRD (S/P/Bld) [Vol rate/Area] 90 mL/min/{1.73_m2} Normal >90 [facility] Comment on above: Result Comment: CALC ULATIONS OF ESTIMATED GFR ARE PERFORMED USING THE 2020 CKD-EPI STUDY REFIT EQUATION WITHOUT THE RACE VARIABLE FOR THE IDMS-TRACEABLE CREATININE METHODS. https://jasn.asnjournals.org/content//ASN.7792619 988 Performed By: #### C MP #### [place] [address] [place] [address] Glucose [Mass/Vol] 158 mg/dL High 74 - 99 [facility] Comment on above: Performed By: #### C MP #### [facility] [address] [place] [address] HCO3 (Bld) [Moles/Vol] 21 mmol/L Normal 21 - 32 [facility] Comment on above: Performed By: #### C MP #### [facility] [address] [place] [address] Potassium [Moles/Vol] 4.2 mmol/L Normal 3.5 - 5.3 [facility] Comment on above: Performed By: #### C MP #### [facility] [address] [place] [address] Protein [Mass/Vol] 6.8 g/dL Normal 6.4 - 8.2 [facility] Comment on above: Performed By: #### C MP #### [facility] [address] [place] [address] Sodium [Moles/Vol] 139 mmol/L Normal 136 - 145 [facility] Comment on above: Performed By: #### C MP #### [facility] [address] [place] [address] Urea nitrogen [Mass/Vol] 21 mg/dL Normal 6 - 23 [facility] Comment on above: Performed By: #### C MP #### [facility] [address] [place] [address] Clinical Event Note-Post Op Checkon 02-24-2023 Clinical Event Note-Post Op Check Clinical Event: Clinical Event Note: TopicPost Op Check Details Patient is a 62yo M with hx of gallstones s/p open rehmnant choly with intraop cholangiogram. Doing well post-op, no nausea or vomiting. Pain is well controlled. O: General: Appears comfortable, in no distress. Neuro: Awake and alert, talking freely. Lungs: chest expansion symmetrical, on bipap CV: regular rate and rhythm Abdomen: soft, appropriately tender, RUQ dressing in place without strikethrough, KENNETH drain in place draining SS fluid Extremities: SCDs on, positive pulses, no edema. Electronic Signatures: Nina Daniel (Resident)) (Signed 25-Feb-2023 01:48) Authored: Clinical Event Note Last Updated: 25-Feb-2023 01:48 by Nina Daniel ( (Resident)) Normal [facility] Consult-Anesthesia - Painon 02-24-2023 Consult-Anesthesia - Pain Service: Service: Anesthesia - Pain Consult: Consult requested by (Attending Name): Dr. Richardson Reason: post-operative analgesia History of Present Illness: Admission Reason: s/p open cholecystectomy HPI: ABIODUN CERDA is a 62 year old Male with PMH significant for cholelithiasis, HTN, ABDULKADIR, CONNER, GERD, & previous DVT who presents 02/24 for open cholecystectomy with Dr. Richardson. Acute Pain consulted for block for postoperative pain control. Anticipated Postop Pain Issues - Palliative: typically relieved with IV analgesics and regional local anesthetics Provocative: typically with movement Quality: typically burning and aching Radiation: typically none Severity: typically severe 8-1010 Timing: typically constant PMH: as above PSH: cholecystectomy, colonoscopy, ERCP, adenoidectomy, tosillectomy, knee arthroscopy, rotator cuff surgery, leg surgery FHx: non-contributory SHx: never smoker, occasional alcohol use, denies ilicit drug use Allergies: Review Family/Social History and ROS: Constitutional: NEGATIVE: Fever Eyes: NEGATIVE: Blurry Vision ENMT: NEGATIVE: Nasal Congestion Respiratory: NEGATIVE: Shortness of Breath Cardiac: NEGATIVE: Chest Pain Gastrointestinal: POSITIVE: Abdominal Pain Musculoskeletal: NEGATIVE: Decreased ROM Neurological: NEGATIVE: Headache Psychiatric: NEGATIVE: Anxiety Skin: NEGATIVE: Pruritus Hematologic/Lymph: NEGATIVE: Bruising Allergies: No Known Allergies: Objective: Physical Exam Narrative: Physical Exam: Physical Exam Constitutional: awake/alert/oriented x3, no distress, alert and cooperative Skin: Warm and dry, no lesions, no rashes Eyes: EOMI, clear sclera ENMT: mucous membranes moist, no apparent injury, no lesions seen Head/Neck: Neck supple, no apparent injury Respiratory/Thorax: Breathing comfortably on room air Cardiovascular: Regular, rate and rhythm, 2+ equal pulses of the extremities Gastrointestinal: Non-distended, soft, non-tender, no rebound tenderness or guarding Extremities: Normal extremities, no cyanosis, edema Neurological: Alert and oriented x3, intact senses Psychological: Appropriate mood and behavior Assessment: ABIODUN CERDA is a 62 year old Male with PMH significant for cholelithiasis, HTN, ABDULKADIR, CONNER, GERD, & previous DVT who presents 02/24 for open cholecystectomy with Dr. Richardson. Acute Pain consulted for block for postoperative pain control. - Bilateral SUDEEP blocks/catheters performed preoperatively 02/24 - Ambit to be connected with Ropivacaine infusion at 7cc/hr per side - Please avoid Lidoderm patches while catheters are in place - Pain medications per primary team - Will see on POD1 [place] [phone] ph [phone] Attestation: Note Completion: I am a: Resident/Fellow Attending AttestationI saw and evaluated the patient. I personally obtained the noriega and critical portions of the history and physical exam or was physically present for noriega and critical portions performed by the resident/fellow. I reviewed the resident/fellows documentation and discussed the patient with the resident/fellow. I agree with the resident/fellows medical decision making as documented in the note. I personally evaluated the patient [id number] Electronic Signatures: Chavez Evans) (Signed 01-Mar-2023 08:51) Authored: Note Completion Co-Signer: Service, History of Present Illness, Review Family/Social History and ROS, Allergies, Objective, Assessment/Recommendatio ns, Note Completion Rajat Armendariz (DO (Resident)) (Signed 24-Feb-2023 11:43) Authored: Service, History of Present Illness, Review Family/Social History and ROS, Allergies, Objective, Assessment/Recommendatio ns, Note Completion Last Updated: 01-Mar-2023 08:51 by Chavez Evans) Normal [facility] Laboratory - Blood bankon ABO group Nom (Bld) A MG-Koenig rgery-[facility] 4300 Work Phone: Rh immune globulin screen (Bld) [Interp] Negative JK[facility]zhl[facility] 4300 Work Phone: Laboratory - Chemistry and C hemistry - challengeon 02-24-2023 Albumin BCP dye [Mass/Vol] 4.4 g/dL 3.4 - 5.0 JG-Rfgokrs-[facility]nt[facility] 4300 Work Phone: ALP [Catalytic activity/Vol] 79 U/L 33 - 136 RK-Uctngoy-Wuu[facility] 4300 Work Phone: ALT With P-5'-P [Catalytic activity/Vol] 70 U/L above high threshold 10 - 52 VD-Wyydwsk-BffSan[facility] 4300 Work Phone: Comment on above: Patients treated wit h Sulfasalazine may generate falsely decreased results for ALT. Anion gap [Moles/Vol] 17 mmol/L 10 - 20 RX-Xnlowut-TqiSan[facility] 4300 Work Phone: AST With P-5'-P [Catalytic activity/Vol] 64 U/L above high threshold 9 - 39 VO-Soghvlk-Tvw[facility] 4300 Work Phone: Bilirubin [Mass/Vol] 1.5 mg/dL above high threshold 0.0 - 1.2 HK-Pbmqlgu-FxiSan[facility] 4300 Work Phone: Calcium [Mass/Vol] 9.1 mg/dL 8.6 - 10.6 MG-Karsten sharifaSanford Medical [facility] 4300 Work Phone: Chloride [Moles/Vol] 105 mmol/L 98 - 107 MG-S urgerySan[facility] 4300 Work Phone: CO2 [Moles/Vol] 21 mmol/L 21 - 32 MG-Surger y-[facility] 4300 Work Phone: Creatinine [Mass/Vol] 0.95 mg/dL See Below RU-Ysmsyye-BukSan[facility] 4300 Work Phone: Comment on above: Reference Range: 0.5 0 - 1.30 Glucose [Mass/Vol] 158 mg/dL above high threshold 74 - 99 FP-Xkaepcb-LwcSan[facility] 4300 Work Phone: Potassium [Moles/Vol] 4.2 mmol/L 3.5 - 5.3 VE-Crviawd-GcaSan[facility] 4300 Work Phone: Protein [Mass/Vol] 6.8 g/dL 6.4 - 8.2 [facility] 4300 Work Phone: Sodium [Moles/Vol] 139 mmol/L 136 - 145 [facility] 4300 Work Phone: Urea nitrogen [Mass/Vol] 21 mg/dL 6 - 23 [facility] 430 Work Phone: Laboratory - Hematology and Cell countson 02-24-2023 Erythrocyte distribution width (RBC) [Ratio] 13.9 % See Below [facility] 430 Work Phone: Comment on above: Reference Range: 11. 5 - 14.5 Hematocrit (Bld) [Volume fraction] 44.5 % See Below [facility] 430 Work Phone: Comment on above: Reference Range: 41. 0 - 52.0 Hemoglobin (Bld) [Mass/Vol] 15.6 g/dL See Below [facility] 430 Work Phone: Comment on above: Reference Range: 13. 5 - 17.5 MCHC (RBC) [Mass/Vol] 35.1 g/dL See Below [facility] 430 Work Phone: Comment on above: Reference Range: 32. 0 - 36.0 MCV (RBC) [Entitic vol] 88 fL 80 - 100 [facility] 430 Work Phone: Platelets (Bld) [#/Vol] 260 10*3/uL 150 - 450 [place] [address] Work Phone: RBC (Bld) [#/Vol] 5.03 {x10E12/L} See Below [place] [address] Work Phone: Comment on above: Reference Range: 4.5 0 - 5.90 WBC (Bld) [#/Vol] 14.3 10*3/uL above high threshold 4.4 - 11.3 OT-Ihnhrmx-Czl[facility] 4300 Work Phone: No Panel Informationon 02-24 Please click on the link to view the study images Normal TR-Ouzwfjf-DcfMountrail [facility] 4300 Work Phone: Normal RM-Tbfhgti-Ovd well 2100 Work Phone: 90 {mL/min/1.73m2} >90 MG-Karsten sharifa-[facility] 4300 Work Phone: Comment on above: CALCULATIONS OF NITHYA MATED GFR ARE PERFORMED USING THE 2020 CKD-EPI STUDY REFIT EQUATION WITHOUT THE RACE VARIABLE FOR THE IDMS-TRACEABLE CREATININE METHODS.https://jasn.asnjournals.org/content//ASN .[email or web address] 0.0 {/100_WBC} 0.0-0.0 MG-Surgery [facility] 4300 Work Phone: YU-Srgyemy-BntMount[facility] 4300 Work Phone: [facility] PREOPERATIVE DIAGNOSIS: Remnant gallstones. POSTOPERATIVE DIAGNOSIS: Remnant gallstones. OPERATION/PROCEDURE: Open remnant cholecystectomy with cholangiogram. SURGEON: Chavez Richardson MD. SEWING MACHINE OPERATOR SEMIAUTOMATIC(S): Dr. Dmitry Norris. ANESTHESIA: General endotracheal. INDICATIONS FOR PROCEDURE: This gentleman is a super morbidly obese 62-year-old gentleman with a BMI of 50. He, in the past, had what was described as a laparoscopic converted open cholecystectomy, which was complicated by a bile leak and numerous ERCP and stenting. He recently had a choledocholithiasis and needed to have a stent replaced and was found to have a significant gallbladder remnant and likely had some inflammation of it. All of this is outlined nicely in my dictated clinic note. He is brought to the operating room today for his remnant cholecystectomy. DESCRIPTION OF OPERATION: The patient was brought to the operating room and placed on the operating table in supine position. A time-out was performed. After the induction of general endotracheal anesthesia, he was given intravenous antibiotics. He had a Aldrich catheter placed. He had sequential compression devices placed. He had been given subcutaneous Lovenox. His abdomen was clipped with electric razor and prepped and draped in standard sterile fashion. We made a generous right upper quadrant incision. We safely dissected down through the abdominal wall and safely gained access to the peritoneal cavity. It took me about an hour before I was able to place the Bookwalter for retraction. What then happened over the course of the next 2 plus hours was a very difficult dissection to identify this gentleman's gallbladder remnant and perform a remnant cholecystectomy with cholangiogram. After getting the colon down away from the liver and exposing the hepatoduodenal ligament, I carefully dissected out the gallbladder remnant and was aided by the fact that this gentleman had an indwelling biliary stent. Again, I worked for some time until I had what I was confident was the gallbladder remnant with its cystic duct going into the bile duct. We had ligated the cystic artery. I shot a cholangiogram through this gallbladder remnant, which showed filling of the proximal biliary tree as well as the duodenum with no contrast extravasation. We therefore doubly ligated the cystic duct just before its entry into the bile duct with a silk tie as well as silk suture ligature. Again, it is difficult to describe the complexity of this operation given the reoperative abdomen and this gentleman's size, but all went safely. At the completion of the cholangiogram and getting the gallbladder out and securing the cystic duct, we copiously irrigated. We obtained hemostasis. I elected to leave a single 19-[place] Islander drain through a stab wound in the right side of the abdomen into the gallbladder fossa. It was secured at the skin level with two 2-0 Prolenes. We then made sure that everything was accounted for and closed this gentleman's right upper quadrant incision in 2 layers of running #1 PDS. We irrigated out the subcutaneous tissue and then closed the incision with interrupted 3-0 Vicryl subdermal followed by lamont and my standard dressing. The patient was safely awakened, extubated, and taken to the recovery room. This procedure is being billed as a modifier 22 given this gentleman's super morbid obesity, his multiply re-operated abdomen which all led to a prolonged operative time of more than 3 hours. Chavez Richardson MD EST EST DICTATION NUMBER: [id number] INTERNAL JOB NUMBER: [id number] CC: MD CORNELIO Aquino Dr. Electronic Signatures: Chavez Richardson () (Signed on 24-Feb-2023 16:23) Authored Unsigned, Draft (SYS GENERATED) (Entered on 24-Feb-2023 16:15) Entered Last Updated: 24-Feb-2023 16:23 by Chavez Richardson) [facility] Order Reconciliationon 02-24 Order Reconciliation Page 1 Admission Reconciliation Document Reconciliation Type: Admission from OR requested on behalf of Dmitry Norris (Resident) done by Dmitry Norris ( (Resident)) Admission from OR - Reconciliation: 24-Feb-2023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 Chemistry S GFR/1.73 sq M.predicted among non-blacks MDRD (S/P/Bld) [Vol rate/Area] ml/min/1.73sqm Invalid Interpretation Code Chemistry S Globulin 3.2 G/dL Invalid Interpretation Code 1.5 - 3.8 G/dL ADM SS Glucose [Mass/Vol] 116 mg/dL Invalid Interpretation Code 82 - 115 mg/dL ADM SS Hematocrit (Bld) [Volume fraction] 41.2 % Invalid Interpretation Code 40.0 - 52.0 % Workflow SS Hemoglobin (Bld) [Mass/Vol] 14.0 G/dL Invalid Interpretation Code 13.0 - 17.5 G/dL Workflow SS Lipase [Catalytic activity/Vol] 32 U/L Invalid Interpretation Code 12 - 53 U/L AH ADM SS Lymphocytes (Bld) [#/Vol] 1.2 103/mcL Invalid Interpretation Code 0.9 - 4.3 10^3/mcL AH Workflow SS Lymphocytes/100 WBC (Bld) 17.5 % Invalid Interpretation Code 20.0 - 40.0 % AH Workflow SS MCH (RBC) [Entitic mass] 30.9 pg Invalid Interpretation Code 27.0 - 33.0 pg AH Workflow SS MCHC 33.9 G/dL Invalid Interpretation Code 32.0 - 36.0 G/dL AH Workflow SS MCV (RBC) [Entitic vol] 91.1 fL Invalid Interpretation Code 81.0 - 100.0 fL AH Workflow SS Monocytes (Bld) [#/Vol] 0.5 103/mcL Invalid Interpretation Code 0.1 - 1.4 10^3/mcL AH Workflow SS Monocytes/100 WBC (Bld) 7.2 % Invalid Interpretation Code 2.0 - 13.0 % AH Workflow SS Neutrophils (Bld) [#/Vol] 5.0 103/mcL Invalid Interpretation Code 2.3 - 8.1 10^3/mcL AH Workflow SS Neutrophils/100 WBC (Bld) 74.4 % Invalid Interpretation Code 50.0 - 75.0 % AH Workflow SS Platelet mean volume (Bld) [Entitic vol] 7.2 fL Invalid Interpretation Code 6.4 - 10.5 fL AH Workflow SS Platelets (Bld) [#/Vol] 271 103/mcL Invalid Interpretation Code 150 - 450 10^3/mcL AH Workflow SS Potassium [Moles/Vol] 4.6 mmol/L Invalid Interpretation Code 3.5 - 5.0 mEq/L ADM SS Protein [Mass/Vol] 6.3 G/dL Invalid Interpretation Code 5.7 - 8.2 G/dL AH ADM SS RBC (Bld) [#/Vol] 4.52 106/mcL Invalid Interpretation Code 4.50 - 6.00 10^6/mcL AH Workflow SS Sodium [Moles/Vol] 138 mmol/L Invalid Interpretation Code 136 - 145 mEq/L ADM SS Urea nitrogen [Mass/Vol] 14.0 mg/dL Invalid Interpretation Code 8.0 - 22.0 mg/dL AH ADM SS Urea nitrogen/Creatinine [Mass ratio] 15.6 ratio Invalid Interpretation Code 10.0 - 22.0 ratio AH ADM SS WBC (Bld) [#/Vol] 6.7 103/mcL Invalid Interpretation Code 4.5 - 10.8 10^3/mcL AH Workflow SS LIPon 01-15-2023 Lipase Level 32 U/L Normal 12-53 [facility] ([place]) Comment on above: Result Comment: No te - New Reference Range in effect 20 Performed By: #### A ISIDRO, ADIFF, LIP, CMP, GFR, CBC ####[address] [address] .Auto Diffon 01-14-2023 Basophil, Absolute 0.0 10 3/mcL Normal 0.0-0.3 [facility] ([place]) Comment on above: Performed By: #### C BC, ADIFF, ANEU, HFP, CMP, GFR #### [address] [address] Basophils/100 WBC (Bld) 0.4 % Normal 0.0-2.5 [facility] ([place]) Comment on above: Performed By: #### C BC, ADIFF, ANEU, HFP, CMP, GFR #### [address] [address] Eosinophil, Absolute 0.0 10 3/mcL Normal 0.0-0.7 [facility] ([place]) Comment on above: Performed By: #### C BC, ADIFF, ANEU, HFP, CMP, GFR #### [address] [address] Eosinophils/100 WBC (Bld) 0.3 % Normal 0.0-6.0 [facility] ([place]) Comment on above: Performed By: #### C BC, ADIFF, ANEU, HFP, CMP, GFR #### [address] [address] Lymphocyte, Absolute 1.1 10 3/mcL Normal 0.9-4.3 [facility] ([place]) Comment on above: Performed By: #### C BC, ADIFF, ANEU, HFP, CMP, GFR #### [address] [address] Lymphocytes/100 WBC (Bld) 20.0 % Normal 20.0-40.0 [facility] ([place]) Comment on above: Performed By: #### C BC, ADIFF, ANEU, HFP, CMP, GFR #### [address] [address] Monocyte, Absolute 0.4 10 3/mcL Normal 0.1-1.4 [facility] ([place]) Comment on above: Performed By: #### C BC, ADIFF, ANEU, HFP, CMP, GFR #### [address] [address] Monocytes/100 WBC (Bld) 6.7 % Normal 2.0-13.0 [facility] ([place]) Comment on above: Performed By: #### C BC, ADIFF, ANEU, HFP, CMP, GFR #### [address] [address] Neutrophils/100 WBC (Bld) 72.6 % Normal 50.0-75.0 [facility] ([place]) Comment on above: Performed By: #### C BC, ADIFF, ANEU, HFP, CMP, GFR #### [address] [address] .GFRon 01-14-2023 GFR Non- >60 Normal [facility] ([place]) Comment on above: Result Comment: GFR Population mean for , Non- Americans Ages 20-29 = 116 mL/min/1.73 sq.m. Ages 30-39 = 107 mL/min/1.73 sq.m. Ages 40-49 = 99 mL/min/1.73 sq.m. Ages 50-59 = 93 mL/min/1.73 sq.m. Ages 60-69 = 85 mL/min/1.73 sq.m. Ages 70+ = 75 mL/min/1.73 sq.m. Chronic Kidney Disease: Less than 60 mL/min/1.73 square meters End Stage Renal Disease: Less than 15 mL/min/1.73 square meters Performed By: #### C BC, ADIFF, ANEU, HFP, CMP, GFR #### [address] [address] GFR >60 Normal [facility] ([place]) Comment on above: Result Comment: GFR Population mean for , Non- Americans Ages 20-29 = 116 mL/min/1.73 sq.m. Ages 30-39 = 107 mL/min/1.73 sq.m. Ages 40-49 = 99 mL/min/1.73 sq.m. Ages 50-59 = 93 mL/min/1.73 sq.m. Ages 60-69 = 85 mL/min/1.73 sq.m. Ages 70+ = 75 mL/min/1.73 sq.m. Chronic Kidney Disease: Less than 60 mL/min/1.73 square meters End Stage Renal Disease: Less than 15 mL/min/1.73 square meters Performed By: #### C BC, ADIFF, ANEU, HFP, CMP, GFR #### [address] [address] .NEUABSon 01-14-2023 Neutrophil, Absolute 4.1 10 3/mcL Normal 2.3-8.1 [facility] ([place]) Comment on above: Performed By: #### C BC, ADIFF, ANEU, HFP, CMP, GFR #### [address] [address] CBCon 01-14-2023 Erythrocyte distribution width (RBC) [Ratio] 13.5 % Normal 11.5-15.5 [facility] ([place]) Comment on above: Performed By: #### C BC, ADIFF, ANEU, HFP, CMP, GFR #### [address] [address] Hematocrit (Bld) [Volume fraction] 39.1 % Low 40.0-52.0 [facility] ([place]) Comment on above: Performed By: #### C BC, ADIFF, ANEU, HFP, CMP, GFR #### [address] [address] Hgb 13.5 G/dL Normal 13.0-17.5 [facility] ([place]) Comment on above: Performed By: #### C BC, ADIFF, ANEU, HFP, CMP, GFR #### [address] [address] MCH (RBC) [Entitic mass] 31.5 pg Normal 27.0-33.0 [facility] ([place]) Comment on above: Performed By: #### C BC, ADIFF, ANEU, HFP, CMP, GFR #### [place] [address] MCHC 34.4 G/dL Normal 32.0-36.0 [facility] ([place]) Comment on above: Performed By: #### C BC, ADIFF, ANEU, HFP, CMP, GFR #### [place] [address] MCV (RBC) [Entitic vol] 91.5 fL Normal 81.0-100.0 [facility] ([place]) Comment on above: Performed By: #### C BC, ADIFF, ANEU, HFP, CMP, GFR #### [place] [address] Platelet 297 10 3/mcL Normal 150-450 [facility] ([place]) Comment on above: Performed By: #### C BC, ADIFF, ANEU, HFP, CMP, GFR #### [place] [address] Platelet mean volume (Bld) [Entitic vol] 7.5 fL Normal 6.4-10.5 [facility] ([place]) Comment on above: Performed By: #### C BC, ADIFF, ANEU, HFP, CMP, GFR #### [place] [address] RBC 4.27 10 6/mcL Low 4.50-6.00 [facility] ([place]) Comment on above: Performed By: #### C BC, ADIFF, ANEU, HFP, CMP, GFR #### [place] [address] WBC 5.7 10 3/mcL Normal 4.5-10.8 [facility] ([place]) Comment on above: Performed By: #### C BC, ADIFF, ANEU, HFP, CMP, GFR #### [place] [address] CMPon 01-14-2023 Albumin Level 3.0 G/dL Low 3.2-4.8 [facility] ([place]) Comment on above: Performed By: #### C BC, ADIFF, ANEU, HFP, CMP, GFR #### [address] [address] Albumin/Globulin [Mass ratio] 1.0 {ratio} Normal 0.9-1.6 [facility] ([place]) Comment on above: Performed By: #### C BC, ADIFF, ANEU, HFP, CMP, GFR #### [address] [address] ALP [Catalytic activity/Vol] 163 U/L High 38-126 [facility] ([place]) Comment on above: Performed By: #### C BC, ADIFF, ANEU, HFP, CMP, GFR #### [address] [address] ALT [Catalytic activity/Vol] 197 U/L High 12-55 [facility] ([place]) Comment on above: Performed By: #### C BC, ADIFF, ANEU, HFP, CMP, GFR #### [place] [id number] AST [Catalytic activity/Vol] 65 U/L High 8-34 [facility] ([place]) Comment on above: Performed By: #### C BC, ADIFF, ANEU, HFP, CMP, GFR #### [address] [address] Bili Total 1.50 mg/dL High 0.20-1.20 [facility] ([place]) Comment on above: Result Comment: Use of this assay is not recommended for patients undergoing treatment with eltrombopag due to the potential for falsely elevated results. Performed By: #### C BC, ADIFF, ANEU, HFP, CMP, GFR #### [place] [id number] BUN/Creatinine Ratio 15.2 ratio Normal 10.0-22.0 [facility] ([place]) Comment on above: Performed By: #### C BC, ADIFF, ANEU, HFP, CMP, GFR #### [place] [id number] Calcium [Mass/Vol] 8.7 mg/dL Normal 8.7-10.4 [facility] ([place]) Comment on above: Performed By: #### C BC, ADIFF, ANEU, HFP, CMP, GFR #### [place] [id number] CO2 [Moles/Vol] 20 mmol/L Low 22-32 [facility] ([place]) Comment on above: Performed By: #### C BC, ADIFF, ANEU, HFP, CMP, GFR #### [place] [id number] Creatinine [Mass/Vol] 0.92 mg/dL Normal 0.60-1.40 [facility] ([place]) Comment on above: Performed By: #### C BC, ADIFF, ANEU, HFP, CMP, GFR #### [place] [id number] Electrolyte Balance 12.0 mEq/L Normal 4.0-15.0 [facility] ([place]) Comment on above: Performed By: #### C BC, ADIFF, ANEU, HFP, CMP, GFR #### [place] [id number] Globulin 3.1 G/dL Normal 1.5-3.8 [facility] ([place]) Comment on above: Performed By: #### C BC, ADIFF, ANEU, HFP, CMP, GFR #### [place] [phone] Glucose [Mass/Vol] 122 mg/dL High 82-115 [facility] ([place]) Comment on above: Performed By: #### C BC, ADIFF, ANEU, HFP, CMP, GFR #### [place] [phone] Total Protein 6.1 G/dL Normal 5.7-8.2 [facility] ([place]) Comment on above: Result Comment: No te - New Reference Range in effect 20 Performed By: #### C BC, ADIFF, ANEU, HFP, CMP, GFR #### [place] [phone] Urea nitrogen [Mass/Vol] 14.0 mg/dL Normal 8.0-22.0 [facility] ([place]) Comment on above: Performed By: #### C BC, ADIFF, ANEU, HFP, CMP, GFR #### [address] [address] Chloride [Moles/Vol] 106 mmol/L Normal 98-110 [facility] ([place]) Comment on above: Performed By: #### C BC, ADIFF, ANEU, HFP, CMP, GFR #### [address] [address] Potassium [Moles/Vol] 4.6 mmol/L Normal 3.5-5.0 [facility] ([place]) Comment on above: Performed By: #### C BC, ADIFF, ANEU, HFP, CMP, GFR #### [place] [id number] [place] [id number] Sodium [Moles/Vol] 138 mmol/L Normal 136-145 [facility] ([place]) Comment on above: Performed By: #### C BC, ADIFF, ANEU, HFP, CMP, GFR #### [address] [address] LABORATORYOrdered By: SYSTEM SYSTEM on 01-14-2023 Albumin BCP dye [Mass/Vol] 3.0 G/dL Invalid Interpretation Code 3.2 - 4.8 G/dL ADM SS Albumin/Globulin [Mass ratio] 1.0 {ratio} Invalid Interpretation Code 0.9 - 1.6 ratio AH ADM SS ALP [Catalytic activity/Vol] 163 U/L Invalid Interpretation Code 38 - 126 U/L ADM SS ALT No additional P-5'-P [Catalytic activity/Vol] 197 U/L Invalid Interpretation Code 12 - 55 U/L ADM SS AST [Catalytic activity/Vol] 65 U/L Invalid Interpretation Code 8 - 34 U/L ADM SS Basophils (Bld) [#/Vol] 0.0 103/mcL Invalid Interpretation Code 0.0 - 0.3 10^3/mcL AH Workflow SS Basophils/100 WBC (Bld) 0.4 % Invalid Interpretation Code 0.0 - 2.5 % Workflow SS Bilirubin [Mass/Vol] 1.50 mg/dL Invalid Interpretation Code 0.20 - 1.20 mg/dL ADM SS Calcium [Mass/Vol] 8.7 mg/dL Invalid Interpretation Code 8.7 - 10.4 mg/dL ADM SS Chloride [Moles/Vol] 106 mmol/L Invalid Interpretation Code 98 - 110 mEq/L ADM SS CO2 [Moles/Vol] 20 mmol/L Invalid Interpretation Code 22 - 32 mEq/L ADM SS Creatinine [Mass/Vol] 0.92 mg/dL Invalid Interpretation Code 0.60 - 1.40 mg/dL ADM SS Electrolyte Balance 12.0 mEq/L Invalid Interpretation Code 4.0 - 15.0 mEq/L ADM SS Eosinophils (Bld) [#/Vol] 0.0 103/mcL Invalid Interpretation Code 0.0 - 0.7 10^3/mcL Workflow SS Eosinophils/100 WBC (Bld) 0.3 % Invalid Interpretation Code 0.0 - 6.0 % Workflow SS Erythrocyte distribution width (RBC) [Ratio] 13.5 % Invalid Interpretation Code 11.5 - 15.5 % Workflow SS GFR/1.73 sq M.predicted among blacks MDRD (S/P/Bld) [Vol rate/Area] ml/min/1.73sqm Invalid Interpretation Code Chemistry S GFR/1.73 sq M.predicted among non-blacks MDRD (S/P/Bld) [Vol rate/Area] ml/min/1.73sqm Invalid Interpretation Code Chemistry S Globulin 3.1 G/dL Invalid Interpretation Code 1.5 - 3.8 G/dL ADM SS Glucose [Mass/Vol] 122 mg/dL Invalid Interpretation Code 82 - 115 mg/dL ADM SS Hematocrit (Bld) [Volume fraction] 39.1 % Invalid Interpretation Code 40.0 - 52.0 % Workflow SS Hemoglobin (Bld) [Mass/Vol] 13.5 G/dL Invalid Interpretation Code 13.0 - 17.5 G/dL Workflow SS Lipase [Catalytic activity/Vol] 42 U/L Invalid Interpretation Code 12 - 53 U/L ADM SS Lymphocytes (Bld) [#/Vol] 1.1 103/mcL Invalid Interpretation Code 0.9 - 4.3 10^3/mcL Workflow SS Lymphocytes/100 WBC (Bld) 20.0 % Invalid Interpretation Code 20.0 - 40.0 % Workflow SS MCH (RBC) [Entitic mass] 31.5 pg Invalid Interpretation Code 27.0 - 33.0 pg AH Workflow SS MCHC 34.4 G/dL Invalid Interpretation Code 32.0 - 36.0 G/dL AH Workflow SS MCV (RBC) [Entitic vol] 91.5 fL Invalid Interpretation Code 81.0 - 100.0 fL AH Workflow SS Monocytes (Bld) [#/Vol] 0.4 103/mcL Invalid Interpretation Code 0.1 - 1.4 10^3/mcL AH Workflow SS Monocytes/100 WBC (Bld) 6.7 % Invalid Interpretation Code 2.0 - 13.0 % AH Workflow SS Neutrophils (Bld) [#/Vol] 4.1 103/mcL Invalid Interpretation Code 2.3 - 8.1 10^3/mcL AH Workflow SS Neutrophils/100 WBC (Bld) 72.6 % Invalid Interpretation Code 50.0 - 75.0 % AH Workflow SS Platelet mean volume (Bld) [Entitic vol] 7.5 fL Invalid Interpretation Code 6.4 - 10.5 fL AH Workflow SS Platelets (Bld) [#/Vol] 297 103/mcL Invalid Interpretation Code 150 - 450 10^3/mcL AH Workflow SS Potassium [Moles/Vol] 4.6 mmol/L Invalid Interpretation Code 3.5 - 5.0 mEq/L AH ADM SS Protein [Mass/Vol] 6.1 G/dL Invalid Interpretation Code 5.7 - 8.2 G/dL AH ADM SS RBC (Bld) [#/Vol] 4.27 106/mcL Invalid Interpretation Code 4.50 - 6.00 10^6/mcL AH Workflow SS Sodium [Moles/Vol] 138 mmol/L Invalid Interpretation Code 136 - 145 mEq/L AH ADM SS Urea nitrogen [Mass/Vol] 14.0 mg/dL Invalid Interpretation Code 8.0 - 22.0 mg/dL AH ADM SS Urea nitrogen/Creatinine [Mass ratio] 15.2 ratio Invalid Interpretation Code 10.0 - 22.0 ratio AH ADM SS WBC (Bld) [#/Vol] 5.7 103/mcL Invalid Interpretation Code 4.5 - 10.8 10^3/mcL AH Workflow SS LIPon 01-14-2023 Lipase Level 42 U/L Normal 12-53 [facility] ([place]) Comment on above: Result Comment: No te - New Reference Range in effect 20 Performed By: #### C BC, ADIFF, ANEU, HFP, CMP, GFR #### [address] [address] .Auto Diffon 01-13-2023 Basophil, Absolute 0.0 10 3/mcL Normal 0.0-0.3 [facility] ([place]) Comment on above: Performed By: #### C BC, ADIFF, ANEU, HFP, CMP, GFR #### [address] [address] Basophils/100 WBC (Bld) 0.6 % Normal 0.0-2.5 [facility] ([place]) Comment on above: Performed By: #### C BC, ADIFF, ANEU, HFP, CMP, GFR #### [address] [address] Eosinophil, Absolute 0.2 10 3/mcL Normal 0.0-0.7 [facility] ([place]) Comment on above: Performed By: #### C BC, ADIFF, ANEU, HFP, CMP, GFR #### [address] [address] Eosinophils/100 WBC (Bld) 5.4 % Normal 0.0-6.0 [facility] ([place]) Comment on above: Performed By: #### C BC, ADIFF, ANEU, HFP, CMP, GFR #### [address] [address] Lymphocyte, Absolute 1.0 10 3/mcL Normal 0.9-4.3 [facility] ([place]) Comment on above: Performed By: #### C BC, ADIFF, ANEU, HFP, CMP, GFR #### [address] [address] Lymphocytes/100 WBC (Bld) 25.8 % Normal 20.0-40.0 [facility] ([place]) Comment on above: Performed By: #### C BC, ADIFF, ANEU, HFP, CMP, GFR #### [address] [address] Monocyte, Absolute 0.4 10 3/mcL Normal 0.1-1.4 [facility] ([place] Comment on above: Performed By: #### C BC, ADIFF, ANEU, HFP, CMP, GFR #### [address] [address] Monocytes/100 WBC (Bld) 11.3 % Normal 2.0-13.0 [facility] ([place]) Comment on above: Performed By: #### C BC, ADIFF, ANEU, HFP, CMP, GFR #### [address] [address] Neutrophils/100 WBC (Bld) 56.9 % Normal 50.0-75.0 [facility] ([place]) Comment on above: Performed By: #### C BC, ADIFF, ANEU, HFP, CMP, GFR #### [address] [address] .GFRon 01-13-2023 GFR >60 Normal [facility] ([place]) Comment on above: Result Comment: GFR Population mean for , Non- Americans Ages 20-29 = 116 mL/min/1.73 sq.m. Ages 30-39 = 107 mL/min/1.73 sq.m. Ages 40-49 = 99 mL/min/1.73 sq.m. Ages 50-59 = 93 mL/min/1.73 sq.m. Ages 60-69 = 85 mL/min/1.73 sq.m. Ages 70+ = 75 mL/min/1.73 sq.m. Chronic Kidney Disease: Less than 60 mL/min/1.73 square meters End Stage Renal Disease: Less than 15 mL/min/1.73 square meters Performed By: #### C BC, ADIFF, ANEU, HFP, CMP, GFR #### [address] [address] GFR Non- >60 Normal [facility] ([place]) Comment on above: Result Comment: GFR Population mean for , Non- Americans Ages 20-29 = 116 mL/min/1.73 sq.m. Ages 30-39 = 107 mL/min/1.73 sq.m. Ages 40-49 = 99 mL/min/1.73 sq.m. Ages 50-59 = 93 mL/min/1.73 sq.m. Ages 60-69 = 85 mL/min/1.73 sq.m. Ages 70+ = 75 mL/min/1.73 sq.m. Chronic Kidney Disease: Less than 60 mL/min/1.73 square meters End Stage Renal Disease: Less than 15 mL/min/1.73 square meters Performed By: #### C BC, ADIFF, ANEU, HFP, CMP, GFR #### [address] [address] .NEUABSon 01-13-2023 Neutrophil, Absolute 2.2 10 3/mcL Low 2.3-8.1 [facility] ([place]) Comment on above: Performed By: #### C BC, ADIFF, ANEU, HFP, CMP, GFR #### [place] [address] CBCon 01-13-2023 Erythrocyte distribution width (RBC) [Ratio] 13.7 % Normal 11.5-15.5 [facility] ([place]) Comment on above: Performed By: #### C BC, ADIFF, ANEU, HFP, CMP, GFR #### [place] [address] Hematocrit (Bld) [Volume fraction] 39.4 % Low 40.0-52.0 [facility] ([place]) Comment on above: Performed By: #### C BC, ADIFF, ANEU, HFP, CMP, GFR #### [place] [address] Hgb 13.4 G/dL Normal 13.0-17.5 [facility] ([place]) Comment on above: Performed By: #### C BC, ADIFF, ANEU, HFP, CMP, GFR #### [place] [address] MCH (RBC) [Entitic mass] 30.9 pg Normal 27.0-33.0 [facility] ([place] Comment on above: Performed By: #### C BC, ADIFF, ANEU, HFP, CMP, GFR #### [place] [address] MCHC 33.9 G/dL Normal 32.0-36.0 [facility] ([place] Comment on above: Performed By: #### C BC, ADIFF, ANEU, HFP, CMP, GFR #### [place] [address] MCV (RBC) [Entitic vol] 91.1 fL Normal 81.0-100.0 [facility] ([place]) Comment on above: Performed By: #### C BC, ADIFF, ANEU, HFP, CMP, GFR #### [place] [address] Platelet 261 10 3/mcL Normal 150-450 [facility] ([place]) Comment on above: Performed By: #### C BC, ADIFF, ANEU, HFP, CMP, GFR #### [place] [address] Platelet mean volume (Bld) [Entitic vol] 7.1 fL Normal 6.4-10.5 [facility] ([place]) Comment on above: Performed By: #### C BC, ADIFF, ANEU, HFP, CMP, GFR #### [place] [address] RBC 4.33 10 6/mcL Low 4.50-6.00 [facility] ([place]) Comment on above: Performed By: #### C BC, ADIFF, ANEU, HFP, CMP, GFR #### [place] [address] WBC 3.8 10 3/mcL Low 4.5-10.8 [facility] ([place]) Comment on above: Performed By: #### C BC, ADIFF, ANEU, HFP, CMP, GFR #### [place] [address] CMPon 01-13-2023 BUN/Creatinine Ratio 17.2 ratio Normal 10.0-22.0 [facility] ([place] Comment on above: Performed By: #### C BC, ADIFF, ANEU, HFP, CMP, GFR #### [place] [address] Calcium [Mass/Vol] 9.0 mg/dL Normal 8.7-10.4 [facility] ([place]) Comment on above: Performed By: #### C BC, ADIFF, ANEU, HFP, CMP, GFR #### [address] [address] Chloride [Moles/Vol] 109 mmol/L Normal 98-110 [facility] ([place]) Comment on above: Performed By: #### C BC, ADIFF, ANEU, HFP, CMP, GFR #### [address] [address] CO2 [Moles/Vol] 23 mmol/L Normal 22-32 [facility] ([place]) Comment on above: Performed By: #### C BC, ADIFF, ANEU, HFP, CMP, GFR #### [address] [address] Creatinine [Mass/Vol] 0.87 mg/dL Normal 0.60-1.40 [facility] ([place]) Comment on above: Performed By: #### C BC, ADIFF, ANEU, HFP, CMP, GFR #### [place] [address] Electrolyte Balance 8.0 mEq/L Normal 4.0-15.0 [facility] ([place]) Comment on above: Performed By: #### C BC, ADIFF, ANEU, HFP, CMP, GFR #### [place] [phone] Glucose [Mass/Vol] 101 mg/dL Normal 82-115 [facility] ([place]) Comment on above: Performed By: #### C BC, ADIFF, ANEU, HFP, CMP, GFR #### [place] [phone] Potassium [Moles/Vol] 4.3 mmol/L Normal 3.5-5.0 [facility] ([place]) Comment on above: Performed By: #### C BC, ADIFF, ANEU, HFP, CMP, GFR #### [place] [phone] Sodium [Moles/Vol] 140 mmol/L Normal 136-145 [facility] ([place]) Comment on above: Performed By: #### C BC, ADIFF, ANEU, HFP, CMP, GFR #### [address] [address] Urea nitrogen [Mass/Vol] 15.0 mg/dL Normal 8.0-22.0 [facility] ([place]) Comment on above: Performed By: #### C BC, ADIFF, ANEU, HFP, CMP, GFR #### [address] [address] HFPon 01-13-2023 Bili Indirect 0.9 mg/dL Normal 0.1-10.0 [facility] ([place]) Comment on above: Performed By: #### C BC, ADIFF, ANEU, HFP, CMP, GFR #### [place] [phone] Albumin Level 3.0 G/dL Low 3.2-4.8 [facility] ([place]) Comment on above: Performed By: #### C BC, ADIFF, ANEU, HFP, CMP, GFR #### [place] [phone] Albumin/Globulin [Mass ratio] 0.9 {ratio} Normal 0.9-1.6 [facility] ([place]) Comment on above: Performed By: #### C BC, ADIFF, ANEU, HFP, CMP, GFR #### [place] [phone] ALP [Catalytic activity/Vol] 177 U/L High 38-126 [facility] ([place]) Comment on above: Performed By: #### C BC, ADIFF, ANEU, HFP, CMP, GFR #### [address] [address] ALT [Catalytic activity/Vol] 208 U/L High 12-55 [facility] ([place]) Comment on above: Performed By: #### C BC, ADIFF, ANEU, HFP, CMP, GFR #### [address] [address] AST [Catalytic activity/Vol] 56 U/L High 8-34 [facility] ([place]) Comment on above: Performed By: #### C BC, ADIFF, ANEU, HFP, CMP, GFR #### [place] [phone] Bili Direct 1.4 mg/dL High 0.0-0.4 [facility] ([place] Comment on above: Result Comment: Use of this assay is not recommended for patients undergoing treatment with eltrombopag due to the potential for falsely elevated results. Performed By: #### C BC, ADIFF, ANEU, HFP, CMP, GFR #### [place] [address] Bili Total 2.30 mg/dL High 0.20-1.20 [facility] ([place]) Comment on above: Result Comment: Use of this assay is not recommended for patients undergoing treatment with eltrombopag due to the potential for falsely elevated results. Performed By: #### C BC, ADIFF, ANEU, HFP, CMP, GFR #### [place] [address] Globulin 3.3 G/dL Normal 1.5-3.8 [facility] ([place]) Comment on above: Performed By: #### C BC, ADIFF, ANEU, HFP, CMP, GFR #### [place] [address] Total Protein 6.3 G/dL Normal 5.7-8.2 [facility] ([place]) Comment on above: Result Comment: No te - New Reference Range in effect 20 Performed By: #### C BC, ADIFF, ANEU, HFP, CMP, GFR #### [place] [address] LABORATORYOrdered By: SYSTEM SYSTEM on 01-13-2023 Basophils (Bld) [#/Vol] 0.0 103/mcL Invalid Interpretation Code 0.0 - 0.3 10^3/mcL Workflow SS Basophils/100 WBC (Bld) 0.6 % Invalid Interpretation Code 0.0 - 2.5 % Workflow SS Bili Indirect 0.9 mg/dL Invalid Interpretation Code 0.1 - 10.0 mg/dL Chemistry S Bilirubin.conjugated [Mass/Vol] 1.4 mg/dL Invalid Interpretation Code 0.0 - 0.4 mg/dL ADM SS Calcium [Mass/Vol] 9.0 mg/dL Invalid Interpretation Code 8.7 - 10.4 mg/dL ADM SS Chloride [Moles/Vol] 109 mmol/L Invalid Interpretation Code 98 - 110 mEq/L ADM SS CO2 [Moles/Vol] 23 mmol/L Invalid Interpretation Code 22 - 32 mEq/L ADM SS Creatinine [Mass/Vol] 0.87 mg/dL Invalid Interpretation Code 0.60 - 1.40 mg/dL ADM SS Electrolyte Balance 8.0 mEq/L Invalid Interpretation Code 4.0 - 15.0 mEq/L ADM SS Eosinophils (Bld) [#/Vol] 0.2 103/mcL Invalid Interpretation Code 0.0 - 0.7 10^3/mcL Workflow SS Eosinophils/100 WBC (Bld) 5.4 % Invalid Interpretation Code 0.0 - 6.0 % Workflow SS Erythrocyte distribution width (RBC) [Ratio] 13.7 % Invalid Interpretation Code 11.5 - 15.5 % Workflow SS GFR/1.73 sq M.predicted among blacks MDRD (S/P/Bld) [Vol rate/Area] ml/min/1.73sqm Invalid Interpretation Code Chemistry S GFR/1.73 sq M.predicted among non-blacks MDRD (S/P/Bld) [Vol rate/Area] ml/min/1.73sqm Invalid Interpretation Code Chemistry S Glucose [Mass/Vol] 101 mg/dL Invalid Interpretation Code 82 - 115 mg/dL ADM SS Hematocrit (Bld) [Volume fraction] 39.4 % Invalid Interpretation Code 40.0 - 52.0 % Workflow SS Hemoglobin (Bld) [Mass/Vol] 13.4 G/dL Invalid Interpretation Code 13.0 - 17.5 G/dL Workflow SS Lymphocytes (Bld) [#/Vol] 1.0 103/mcL Invalid Interpretation Code 0.9 - 4.3 10^3/mcL Workflow SS Lymphocytes/100 WBC (Bld) 25.8 % Invalid Interpretation Code 20.0 - 40.0 % Workflow SS MCH (RBC) [Entitic mass] 30.9 pg Invalid Interpretation Code 27.0 - 33.0 pg AH Workflow SS MCHC 33.9 G/dL Invalid Interpretation Code 32.0 - 36.0 G/dL Workflow SS MCV (RBC) [Entitic vol] 91.1 fL Invalid Interpretation Code 81.0 - 100.0 fL AH Workflow SS Monocytes (Bld) [#/Vol] 0.4 103/mcL Invalid Interpretation Code 0.1 - 1.4 10^3/mcL AH Workflow SS Monocytes/100 WBC (Bld) 11.3 % Invalid Interpretation Code 2.0 - 13.0 % AH Workflow SS Neutrophils (Bld) [#/Vol] 2.2 103/mcL Invalid Interpretation Code 2.3 - 8.1 10^3/mcL AH Workflow SS Neutrophils/100 WBC (Bld) 56.9 % Invalid Interpretation Code 50.0 - 75.0 % AH Workflow SS Platelet mean volume (Bld) [Entitic vol] 7.1 fL Invalid Interpretation Code 6.4 - 10.5 fL AH Workflow SS Platelets (Bld) [#/Vol] 261 103/mcL Invalid Interpretation Code 150 - 450 10^3/mcL AH Workflow SS Potassium [Moles/Vol] 4.3 mmol/L Invalid Interpretation Code 3.5 - 5.0 mEq/L ADM SS RBC (Bld) [#/Vol] 4.33 106/mcL Invalid Interpretation Code 4.50 - 6.00 10^6/mcL AH Workflow SS Sodium [Moles/Vol] 140 mmol/L Invalid Interpretation Code 136 - 145 mEq/L ADM SS Urea nitrogen [Mass/Vol] 15.0 mg/dL Invalid Interpretation Code 8.0 - 22.0 mg/dL ADM SS Urea nitrogen/Creatinine [Mass ratio] 17.2 ratio Invalid Interpretation Code 10.0 - 22.0 ratio AH ADM SS WBC (Bld) [#/Vol] 3.8 103/mcL Invalid Interpretation Code 4.5 - 10.8 10^3/mcL Workflow SS Laboratory - Chemistry and C hemistry - challengeOrdered By: SYSTEM SYSTEM on 01-13-2023 Albumin BCP dye [Mass/Vol] 3.0 G/dL Invalid Interpretation Code 3.2 - 4.8 G/dL ADM SS Albumin/Globulin [Mass ratio] 0.9 {ratio} Invalid Interpretation Code 0.9 - 1.6 ratio ADM SS ALP [Catalytic activity/Vol] 177 U/L Invalid Interpretation Code 38 - 126 U/L ADM SS ALT No additional P-5'-P [Catalytic activity/Vol] 208 U/L Invalid Interpretation Code 12 - 55 U/L ADM SS AST [Catalytic activity/Vol] 56 U/L Invalid Interpretation Code 8 - 34 U/L AH ADM SS Bilirubin [Mass/Vol] 2.30 mg/dL Invalid Interpretation Code 0.20 - 1.20 mg/dL AH ADM SS Protein [Mass/Vol] 6.3 G/dL Invalid Interpretation Code 5.7 - 8.2 G/dL ADM SS No Panel InformationOrdered By: SYSTEM SYSTEM on 01-13-2023 Globulin 3.3 G/dL Invalid Interpretation Code 1.5 - 3.8 G/dL AH ADM SS XR ERCP BILIARY AND PANCREAT IC DUCTon 01-13-2023 XR ERCP BILIARY AND PANCREATIC DUCT ORIGINAL HISTORY: Obstructive jaundice COMPARISON: MR cholangiogram 3 days previously FLUOROSCOPY TIME: Pain 50 seconds FLUOROSCOPY IMAGES: 9 FINDINGS: There is cannulation and injection of the common bile duct with biliary stent placement. IMPRESSION: Fluoroscopy provided to the gastroenterology service. Interpreted by: Alberto Lujan MD Preliminary Report By: Alberto Lujan MD Electronically signed By Alberto Lujan MD Dictated Date: 01/13/2023 9:23:55 AM Prelim Date: 01/13/2023 9:24:44 AM Sign Date: 01/13/2023 9:24:44 AM Ordering Provider: PAULA Sahni [facility] ([place]) .Auto Diffon 01-12-2023 Basophil, Absolute 0.0 10 3/mcL Normal 0.0-0.3 [facility] ([place]) Comment on above: Performed By: #### L AC #### [address] [address] Basophils/100 WBC (Bld) 0.3 % Normal 0.0-2.5 [facility] ([place]) Comment on above: Performed By: #### L AC #### [address] [address] Eosinophil, Absolute 0.2 10 3/mcL Normal 0.0-0.7 [facility] ([place]) Comment on above: Performed By: #### L AC #### [address] [address] Eosinophils/100 WBC (Bld) 4.4 % Normal 0.0-6.0 [facility] ([place] Comment on above: Performed By: #### L AC #### [address] [address] Lymphocyte, Absolute 0.8 10 3/mcL Low 0.9-4.3 [facility] ([place]) Comment on above: Performed By: #### L AC #### [address] [address] Lymphocytes/100 WBC (Bld) 15.1 % Low 20.0-40.0 [facility] ([place] Comment on above: Performed By: #### L AC #### [address] [address] Monocyte, Absolute 0.5 10 3/mcL Normal 0.1-1.4 [facility] ([place] Comment on above: Performed By: #### L AC #### [address] [address] Monocytes/100 WBC (Bld) 9.7 % Normal 2.0-13.0 [facility] ([place] Comment on above: Performed By: #### L AC #### [address] [address] Neutrophils/100 WBC (Bld) 70.5 % Normal 50.0-75.0 [facility] ([place] Comment on above: Performed By: #### L AC #### [address] [address] .GFRon 01-12-2023 GFR >60 Normal [facility] ([place]) Comment on above: Result Comment: GFR Population mean for , Non- Americans Ages 20-29 = 116 mL/min/1.73 sq.m. Ages 30-39 = 107 mL/min/1.73 sq.m. Ages 40-49 = 99 mL/min/1.73 sq.m. Ages 50-59 = 93 mL/min/1.73 sq.m. Ages 60-69 = 85 mL/min/1.73 sq.m. Ages 70+ = 75 mL/min/1.73 sq.m. Chronic Kidney Disease: Less than 60 mL/min/1.73 square meters End Stage Renal Disease: Less than 15 mL/min/1.73 square meters Performed By: #### L AC #### [address] [address] GFR Non- >60 Normal [facility] ([place] Comment on above: Result Comment: GFR Population mean for , Non- Americans Ages 20-29 = 116 mL/min/1.73 sq.m. Ages 30-39 = 107 mL/min/1.73 sq.m. Ages 40-49 = 99 mL/min/1.73 sq.m. Ages 50-59 = 93 mL/min/1.73 sq.m. Ages 60-69 = 85 mL/min/1.73 sq.m. Ages 70+ = 75 mL/min/1.73 sq.m. Chronic Kidney Disease: Less than 60 mL/min/1.73 square meters End Stage Renal Disease: Less than 15 mL/min/1.73 square meters Performed By: #### L AC #### [place] [address] .NEUABSon 01-12-2023 Neutrophil, Absolute 3.7 10 3/mcL Normal 2.3-8.1 [facility] ([place]) Comment on above: Performed By: #### L AC #### [place] [address] CBCon 01-12-2023 Erythrocyte distribution width (RBC) [Ratio] 14.1 % Normal 11.5-15.5 [facility] ([place] Comment on above: Performed By: #### L AC #### [place] [address] Hematocrit (Bld) [Volume fraction] 39.4 % Low 40.0-52.0 [facility] ([place] Comment on above: Performed By: #### L AC #### [place] [address] Hgb 13.3 G/dL Normal 13.0-17.5 [facility] ([place] Comment on above: Performed By: #### L AC #### [place] [phone] MCH (RBC) [Entitic mass] 30.9 pg Normal 27.0-33.0 [facility] ([place] Comment on above: Performed By: #### L AC #### [address] [address] MCHC 33.7 G/dL Normal 32.0-36.0 [facility] ([place] Comment on above: Performed By: #### L AC #### [address] [address] MCV (RBC) [Entitic vol] 91.9 fL Normal 81.0-100.0 [facility] ([place] Comment on above: Performed By: #### L AC #### [address] [address] Platelet 238 10 3/mcL Normal 150-450 [facility] ([place]) Comment on above: Performed By: #### L AC #### [place] [id number] Platelet mean volume (Bld) [Entitic vol] 7.4 fL Normal 6.4-10.5 [facility] ([place]) Comment on above: Performed By: #### L AC #### [place] [id number] RBC 4.29 10 6/mcL Low 4.50-6.00 [facility] ([place]) Comment on above: Performed By: #### L AC #### [place] [id number] WBC 5.3 10 3/mcL Normal 4.5-10.8 [facility] ([place]) Comment on above: Performed By: #### L AC #### [address] [address] CMPon 01-12-2023 Albumin Level 3.0 G/dL Low 3.2-4.8 [facility] ([place]) Comment on above: Performed By: #### L AC #### [place] [id number] Albumin/Globulin [Mass ratio] 0.9 {ratio} Normal 0.9-1.6 [facility] ([place] Comment on above: Performed By: #### L AC #### [place] [phone] ALP [Catalytic activity/Vol] 189 U/L High 38-126 [facility] ([place] Comment on above: Performed By: #### L AC #### [address] [address] ALT [Catalytic activity/Vol] 286 U/L High 12-55 [facility] ([place] Comment on above: Performed By: #### L AC #### [address] [address] AST [Catalytic activity/Vol] 76 U/L High 8-34 [facility] ([place] Comment on above: Performed By: #### L AC #### [address] [address] Bili Total 4.20 mg/dL High 0.20-1.20 [facility] ([place] Comment on above: Result Comment: Use of this assay is not recommended for patients undergoing treatment with eltrombopag due to the potential for falsely elevated results. Performed By: #### L AC #### [place] [id number] BUN/Creatinine Ratio 20.2 ratio Normal 10.0-22.0 [facility] ([place] Comment on above: Performed By: #### L AC #### [place] [id number] Calcium [Mass/Vol] 9.0 mg/dL Normal 8.7-10.4 [facility] ([place]) Comment on above: Performed By: #### L AC #### [address] [address] Chloride [Moles/Vol] 104 mmol/L Normal 98-110 [facility] ([place] Comment on above: Performed By: #### L AC #### [address] [address] CO2 [Moles/Vol] 26 mmol/L Normal 22-32 [facility] ([place]) Comment on above: Performed By: #### L AC #### [place] [id number] Creatinine [Mass/Vol] 0.94 mg/dL Normal 0.60-1.40 [facility] ([place] Comment on above: Performed By: #### L AC #### [address] [address] Electrolyte Balance 9.0 mEq/L Normal 4.0-15.0 [facility] ([place]) Comment on above: Performed By: #### L AC #### [address] [address] Globulin 3.3 G/dL Normal 1.5-3.8 [facility] ([place] Comment on above: Performed By: #### L AC #### [address] [address] Glucose [Mass/Vol] 95 mg/dL Normal 82-115 [facility] ([place]) Comment on above: Performed By: #### L AC #### [address] [address] Potassium [Moles/Vol] 5.0 mmol/L Normal 3.5-5.0 [facility] ([place] Comment on above: Performed By: #### L AC #### [address] [address] Sodium [Moles/Vol] 139 mmol/L Normal 136-145 [facility] ([place]) Comment on above: Performed By: #### L AC #### [address] [address] Total Protein 6.3 G/dL Normal 5.7-8.2 [facility] ([place]) Comment on above: Result Comment: No te - New Reference Range in effect 20 Performed By: #### L AC #### [address] [address] Urea nitrogen [Mass/Vol] 19.0 mg/dL Normal 8.0-22.0 [facility] ([place]) Comment on above: Performed By: #### L AC #### [address] [address] .Auto Diffon 01-11-2023 Basophil, Absolute 0.0 10 3/mcL Normal 0.0-0.3 [facility] ([place]) Comment on above: Performed By: #### C BC, ADIFF, ANEU, HFP, CMP, GFR #### [address] [address] Basophils/100 WBC (Bld) 0.3 % Normal 0.0-2.5 [facility] ([place]) Comment on above: Performed By: #### C BC, ADIFF, ANEU, HFP, CMP, GFR #### [address] [address] Eosinophil, Absolute 0.1 10 3/mcL Normal 0.0-0.7 [facility] ([place]) Comment on above: Performed By: #### C BC, ADIFF, ANEU, HFP, CMP, GFR #### [address] [address] Eosinophils/100 WBC (Bld) 1.4 % Normal 0.0-6.0 [facility] ([place]) Comment on above: Performed By: #### C BC, ADIFF, ANEU, HFP, CMP, GFR #### [address] [address] Lymphocyte, Absolute 1.2 10 3/mcL Normal 0.9-4.3 [facility] ([place]) Comment on above: Performed By: #### C BC, ADIFF, ANEU, HFP, CMP, GFR #### [address] [address] Lymphocytes/100 WBC (Bld) 13.5 % Low 20.0-40.0 [facility] ([place]) Comment on above: Performed By: #### C BC, ADIFF, ANEU, HFP, CMP, GFR #### [address] [address] Monocyte, Absolute 1.2 10 3/mcL Normal 0.1-1.4 [facility] ([place]) Comment on above: Performed By: #### C BC, ADIFF, ANEU, HFP, CMP, GFR #### [address] [address] Monocytes/100 WBC (Bld) 13.0 % Normal 2.0-13.0 [facility] ([place]) Comment on above: Performed By: #### C BC, ADIFF, ANEU, HFP, CMP, GFR #### [address] [address] Neutrophils/100 WBC (Bld) 71.8 % Normal 50.0-75.0 [facility] ([place] Comment on above: Performed By: #### C BC, ADIFF, ANEU, HFP, CMP, GFR #### [address] [address] .GFRon 01-11-2023 GFR 51 ml/min/1.73sqm Normal [facility] ([place]) Comment on above: Result Comment: GFR Population mean for , Non- Americans Ages 20-29 = 116 mL/min/1.73 sq.m. Ages 30-39 = 107 mL/min/1.73 sq.m. Ages 40-49 = 99 mL/min/1.73 sq.m. Ages 50-59 = 93 mL/min/1.73 sq.m. Ages 60-69 = 85 mL/min/1.73 sq.m. Ages 70+ = 75 mL/min/1.73 sq.m. Chronic Kidney Disease: Less than 60 mL/min/1.73 square meters End Stage Renal Disease: Less than 15 mL/min/1.73 square meters Performed By: #### C BC, ADIFF, ANEU, HFP, CMP, GFR #### [address] [address] GFR Non- 42 ml/min/1.73sqm Normal [facility] ([place] Comment on above: Result Comment: GFR Population mean for , Non- Americans Ages 20-29 = 116 mL/min/1.73 sq.m. Ages 30-39 = 107 mL/min/1.73 sq.m. Ages 40-49 = 99 mL/min/1.73 sq.m. Ages 50-59 = 93 mL/min/1.73 sq.m. Ages 60-69 = 85 mL/min/1.73 sq.m. Ages 70+ = 75 mL/min/1.73 sq.m. Chronic Kidney Disease: Less than 60 mL/min/1.73 square meters End Stage Renal Disease: Less than 15 mL/min/1.73 square meters Performed By: #### C BC, ADIFF, ANEU, HFP, CMP, GFR #### [place] [address] .NEUABSon 01-11-2023 Neutrophil, Absolute 6.5 10 3/mcL Normal 2.3-8.1 [facility] ([place] Comment on above: Performed By: #### C BC, ADIFF, ANEU, HFP, CMP, GFR #### [place] [address] BCIDon 01-11-2023 Acinetobacter jayne-baumanii complex Not detected Normal Not Detected [facility] ([place]) Comment on above: Performed By: #### C BC, ADIFF, ANEU, HFP, CMP, GFR #### [place] [address] Bacteroides fragilis Not detected Normal Not Detected [facility] ([place] Comment on above: Performed By: #### C BC, ADIFF, ANEU, HFP, CMP, GFR #### [place] [address] BCID Comment See Comment Normal [facility] ([place]) Comment on above: Result Comment: Anti microbial resistance can occur via multiple mechanisms. A Not Detected result for antimicrobial resistance gene(s) does not indicate antimicrobial susceptibility. Culture identification and susceptibility results to follow. If BCID panel was negative (Not Detected) for all targets, this does not exclude a blood stream infection. Our blood culture system detected growth. Culture identification and susceptibility testing (if appropriate) to follow. Performed By: #### C BC, ADIFF, ANEU, HFP, CMP, GFR #### [place] [address] Emeka albicans Not detected Normal Not Detected [facility] ([place] Comment on above: Performed By: #### C BC, ADIFF, ANEU, HFP, CMP, GFR #### [place] [address] Emeka auris Not detected Normal Not Detected [facility] ([place]) Comment on above: Performed By: #### C BC, ADIFF, ANEU, HFP, CMP, GFR #### [address] [address] Emeka glabrata Not detected Normal Not Detected [facility] ([place]) Comment on above: Performed By: #### C BC, ADIFF, ANEU, HFP, CMP, GFR #### [place] [address] Emeka krusei Not detected Normal Not Detected [facility] ([place]) Comment on above: Performed By: #### C BC, ADIFF, ANEU, HFP, CMP, GFR #### [place] [address] Emeka parapsilosis Not detected Normal Not Detected [facility] ([place]) Comment on above: Performed By: #### C BC, ADIFF, ANEU, HFP, CMP, GFR #### [place] [address] Emeka tropicalis Not detected Normal Not Detected [facility] ([place]) Comment on above: Performed By: #### C BC, ADIFF, ANEU, HFP, CMP, GFR #### [place] [address] Cryptococcus neoformans-gattii Not detected Normal Not Detected [facility] ([place]) Comment on above: Performed By: #### C BC, ADIFF, ANEU, HFP, CMP, GFR #### [place] [address] CTX-M (ESBL) Not detected Normal Not Detected [facility] ([place] Comment on above: Performed By: #### C BC, ADIFF, ANEU, HFP, CMP, GFR #### [place] [address] E. Coli Not detected Normal Not Detected [facility] ([place] Comment on above: Performed By: #### C BC, ADIFF, ANEU, HFP, CMP, GFR #### [place] [address] Enterobacter cloacae Complex Not detected Normal Not Detected [facility] ([place] Comment on above: Performed By: #### C BC, ADIFF, ANEU, HFP, CMP, GFR #### [place] [address] Enterobacterales Detected Abnormal Not Detected [facility] ([place] Comment on above: Performed By: #### C BC, ADIFF, ANEU, HFP, CMP, GFR #### [address] [address] Enterococcus faecalis Not detected Normal Not Detected [facility] ([place] Comment on above: Performed By: #### C BC, ADIFF, ANEU, HFP, CMP, GFR #### [address] [address] Enterococcus faecium Not detected Normal Not Detected [facility] ([place] Comment on above: Performed By: #### C BC, ADIFF, ANEU, HFP, CMP, GFR #### [address] [address] Haemophilus influenzae Not detected Normal Not Detected [facility] ([place] Comment on above: Performed By: #### C BC, ADIFF, ANEU, HFP, CMP, GFR #### [address] [address] IMP (Carbapenemase) Not detected Normal Not Detected [facility] ([place] Comment on above: Performed By: #### C BC, ADIFF, ANEU, HFP, CMP, GFR #### [address] [address] Klebsiella aerogenes Detected Abnormal Not Detected [facility] ([place] Comment on above: Performed By: #### C BC, ADIFF, ANEU, HFP, CMP, GFR #### [address] [address] Klebsiella oxytoca Not detected Normal Not Detected [facility] ([place] Comment on above: Performed By: #### C BC, ADIFF, ANEU, HFP, CMP, GFR #### [address] [address] Klebsiella pneumoniae group Not detected Normal Not Detected [facility] ([place] Comment on above: Performed By: #### C BC, ADIFF, ANEU, HFP, CMP, GFR #### [address] [address] KPC (Carbapenemase) Not detected Normal Not Detected [facility] ([place] Comment on above: Performed By: #### C BC, ADIFF, ANEU, HFP, CMP, GFR #### [address] [address] Listeria monocytogenes Not detected Normal Not Detected [facility] ([place] Comment on above: Performed By: #### C BC, ADIFF, ANEU, HFP, CMP, GFR #### [facility] [address] [place] [address] MCR-1 (Colistin Resistance) Not detected Normal Not Detected [facility] ([place]) Comment on above: Performed By: #### C BC, ADIFF, ANEU, HFP, CMP, GFR #### [address] [address] Mec A/C Not Applicable Normal Not Detected [facility] ([place] Comment on above: Performed By: #### C BC, ADIFF, ANEU, HFP, CMP, GFR #### [address] [address] Mec A/C-MREJ (MRSA) Not Applicable Normal Not Detected [facility] ([place] Comment on above: Performed By: #### C BC, ADIFF, ANEU, HFP, CMP, GFR #### [address] [address] NDM (Carbapenemase) Not detected Normal Not Detected [facility] ([place] Comment on above: Performed By: #### C BC, ADIFF, ANEU, HFP, CMP, GFR #### [address] [address] Neisseria meningitidis (Encapsalated) Not detected Normal Not Detected [facility] ([place] Comment on above: Performed By: #### C BC, ADIFF, ANEU, HFP, CMP, GFR #### [address] [address] OXA-48 like (Carbapenemase) Not detected Normal Not Detected [facility] ([place] Comment on above: Performed By: #### C BC, ADIFF, ANEU, HFP, CMP, GFR #### [address] [address] Proteus Not detected Normal Not Detected [facility] ([place] Comment on above: Performed By: #### C BC, ADIFF, ANEU, HFP, CMP, GFR #### [address] [address] Pseudomonas aeruginosa Not detected Normal Not Detected [facility] ([place] Comment on above: Performed By: #### C BC, ADIFF, ANEU, HFP, CMP, GFR #### [address] [address] S. agalactiae Org specific cx Ql (Vag fld) Not detected Normal Not Detected [facility] ([place] Comment on above: Performed By: #### C BC, ADIFF, ANEU, HFP, CMP, GFR #### [address] [address] Salmonella species Not detected Normal Not Detected [facility] ([place] Comment on above: Performed By: #### C BC, ADIFF, ANEU, HFP, CMP, GFR #### [address] [address] Serratia marcescens Not detected Normal Not Detected [facility] ([place] Comment on above: Performed By: #### C BC, ADIFF, ANEU, HFP, CMP, GFR #### [address] [address] Staphylococcus Not detected Normal Not Detected [facility] ([place] Comment on above: Performed By: #### C BC, ADIFF, ANEU, HFP, CMP, GFR #### [address] [address] Staphylococcus aureus Not detected Normal Not Detected [facility] ([place] Comment on above: Result Comment: If S taphylococcus aureus is Detected, an Infectious Disease physician consult is required on identification. Performed By: #### C BC, ADIFF, ANEU, HFP, CMP, GFR #### [address] [address] Staphylococcus epidermidis Not detected Normal Not Detected [facility] ([place] Comment on above: Performed By: #### C BC, ADIFF, ANEU, HFP, CMP, GFR #### [address] [address] Staphylococcus lugdunensis Not detected Normal Not Detected [facility] ([place] Comment on above: Performed By: #### C BC, ADIFF, ANEU, HFP, CMP, GFR #### [place] [address] Stenotropomonas maltophilia Not detected Normal Not Detected [facility] ([place] Comment on above: Performed By: #### C BC, ADIFF, ANEU, HFP, CMP, GFR #### [place] [address] Streptococcus Not detected Normal Not Detected [facility] ([place] Comment on above: Performed By: #### C BC, ADIFF, ANEU, HFP, CMP, GFR #### [place] [address] Streptococcus pneumoniae Not detected Normal Not Detected [facility] ([place] Comment on above: Performed By: #### C BC, ADIFF, ANEU, HFP, CMP, GFR #### [place] [address] Streptococcus pyogenes Not detected Normal Not Detected [facility] ([place] Comment on above: Performed By: #### C BC, ADIFF, ANEU, HFP, CMP, GFR #### [place] [address] Van A/B Not Applicable Normal Not Detected [facility] ([place] Comment on above: Performed By: #### C BC, ADIFF, ANEU, HFP, CMP, GFR #### [place] [address] VIM (Carbapenemase) Not detected Normal Not Detected [facility] ([place] Comment on above: Performed By: #### C BC, ADIFF, ANEU, HFP, CMP, GFR #### [place] [address] CBCon 01-11-2023 Erythrocyte distribution width (RBC) [Ratio] 13.8 % Normal 11.5-15.5 [facility] ([place] Comment on above: Performed By: #### C BC, ADIFF, ANEU, HFP, CMP, GFR #### [place] [address] Hematocrit (Bld) [Volume fraction] 38.9 % Low 40.0-52.0 [facility] ([place] Comment on above: Performed By: #### C BC, ADIFF, ANEU, HFP, CMP, GFR #### [place] [address] Hgb 13.2 G/dL Normal 13.0-17.5 [facility] ([place] Comment on above: Performed By: #### C BC, ADIFF, ANEU, HFP, CMP, GFR #### [place] [address] MCH (RBC) [Entitic mass] 31.3 pg Normal 27.0-33.0 [facility] ([place] Comment on above: Performed By: #### C BC, ADIFF, ANEU, HFP, CMP, GFR #### [place] [address] MCHC 33.8 G/dL Normal 32.0-36.0 [facility] ([place] Comment on above: Performed By: #### C BC, ADIFF, ANEU, HFP, CMP, GFR #### [place] [address] MCV (RBC) [Entitic vol] 92.4 fL Normal 81.0-100.0 [facility] ([place] Comment on above: Performed By: #### C BC, ADIFF, ANEU, HFP, CMP, GFR #### [place] [address] Platelet 240 10 3/mcL Normal 150-450 [facility] ([place]) Comment on above: Performed By: #### C BC, ADIFF, ANEU, HFP, CMP, GFR #### [place] [address] Platelet mean volume (Bld) [Entitic vol] 7.4 fL Normal 6.4-10.5 [facility] ([place] Comment on above: Performed By: #### C BC, ADIFF, ANEU, HFP, CMP, GFR #### [place] [address] RBC 4.21 10 6/mcL Low 4.50-6.00 [facility] ([place]) Comment on above: Performed By: #### C BC, ADIFF, ANEU, HFP, CMP, GFR #### [address] [address] WBC 9.0 10 3/mcL Normal 4.5-10.8 [facility] ([place] Comment on above: Performed By: #### C BC, ADIFF, ANEU, HFP, CMP, GFR #### [address] [address] CMPon 01-11-2023 BUN/Creatinine Ratio 16.9 ratio Normal 10.0-22.0 [facility] ([place]) Comment on above: Performed By: #### C BC, ADIFF, ANEU, HFP, CMP, GFR #### [place] [phone] Calcium [Mass/Vol] 7.9 mg/dL Low 8.7-10.4 [facility] ([place]) Comment on above: Performed By: #### C BC, ADIFF, ANEU, HFP, CMP, GFR #### [place] [address] Chloride [Moles/Vol] 106 mmol/L Normal 98-110 [facility] ([place] Comment on above: Performed By: #### C BC, ADIFF, ANEU, HFP, CMP, GFR #### [place] [address] CO2 [Moles/Vol] 22 mmol/L Normal 22-32 [facility] ([place]) Comment on above: Performed By: #### C BC, ADIFF, ANEU, HFP, CMP, GFR #### [place] [phone] Creatinine [Mass/Vol] 1.66 mg/dL High 0.60-1.40 [facility] ([place] Comment on above: Performed By: #### C BC, ADIFF, ANEU, HFP, CMP, GFR #### [place] [phone] Electrolyte Balance 3.0 mEq/L Low 4.0-15.0 [facility] ([place]) Comment on above: Performed By: #### C BC, ADIFF, ANEU, HFP, CMP, GFR #### [address] [address] Glucose [Mass/Vol] 111 mg/dL Normal 82-115 [facility] ([place] Comment on above: Performed By: #### C BC, ADIFF, ANEU, HFP, CMP, GFR #### [place] [phone] Potassium [Moles/Vol] 4.2 mmol/L Normal 3.5-5.0 [facility] ([place] Comment on above: Performed By: #### C BC, ADIFF, ANEU, HFP, CMP, GFR #### [place] [phone] Sodium [Moles/Vol] 131 mmol/L Low 136-145 [facility] ([place]) Comment on above: Performed By: #### C BC, ADIFF, ANEU, HFP, CMP, GFR #### [place] [address] Urea nitrogen [Mass/Vol] 28.0 mg/dL High 8.0-22.0 [facility] ([place] Comment on above: Performed By: #### C BC, ADIFF, ANEU, HFP, CMP, GFR #### [place] [address] HFPon 01-11-2023 Bili Indirect 2.0 mg/dL Normal 0.1-10.0 [facility] ([place]) Comment on above: Performed By: #### C BC, ADIFF, ANEU, HFP, CMP, GFR #### [place] [phone] Albumin Level 2.9 G/dL Low 3.2-4.8 [facility] ([place]) Comment on above: Performed By: #### C BC, ADIFF, ANEU, HFP, CMP, GFR #### [place] [phone] Albumin/Globulin [Mass ratio] 1.0 {ratio} Normal 0.9-1.6 [facility] ([place] Comment on above: Performed By: #### C BC, ADIFF, ANEU, HFP, CMP, GFR #### [address] [address] ALP [Catalytic activity/Vol] 185 U/L High 38-126 [facility] ([place] Comment on above: Performed By: #### C BC, ADIFF, ANEU, HFP, CMP, GFR #### [address] [address] ALT [Catalytic activity/Vol] 377 U/L High 12-55 [facility] ([place] Comment on above: Performed By: #### C BC, ADIFF, ANEU, HFP, CMP, GFR #### [address] [address] AST [Catalytic activity/Vol] 142 U/L High 8-34 [facility] ([place] Comment on above: Performed By: #### C BC, ADIFF, ANEU, HFP, CMP, GFR #### [address] [address] Bili Direct 4.6 mg/dL High 0.0-0.4 [facility] [place] Comment on above: Result Comment: Use of this assay is not recommended for patients undergoing treatment with eltrombopag due to the potential for falsely elevated results. Performed By: #### C BC, ADIFF, ANEU, HFP, CMP, GFR #### [place] [phone] Bili Total 6.60 mg/dL High 0.20-1.20 [facility] ([place] Comment on above: Result Comment: Use of this assay is not recommended for patients undergoing treatment with eltrombopag due to the potential for falsely elevated results. Performed By: #### C BC, ADIFF, ANEU, HFP, CMP, GFR #### [address] [address] Globulin 2.8 G/dL Normal 1.5-3.8 [facility] ([place] Comment on above: Performed By: #### C BC, ADIFF, ANEU, HFP, CMP, GFR #### [address] [address] Total Protein 5.7 G/dL Normal 5.7-8.2 [facility] ([place]) Comment on above: Result Comment: No te - New Reference Range in effect 20 Performed By: #### C BC, ADIFF, ANEU, HFP, CMP, GFR #### [place] [address] LABORATORYOrdered By: Steffanie Mckeon on 01-11-2023 Appearance (U) Clear (01/11/23 4:06 PM) Invalid Interpretation Code Clear AH Auto Urine SS Bilirubin Ql (U) Negative (01/11/23 4:06 PM) Invalid Interpretation Code Neg-Trace AH Auto Urine SS Color (U) DARK YELLOW Invalid Interpretation Code AH Auto Urine SS Glucose Test strip (U) [Mass/Vol] Negative Invalid Interpretation Code Negativemg/ dL AH Auto Urine SS Hemoglobin Auto test strip (U) [Mass/Vol] Small *ABN* (01/11/23 4:06 PM) Invalid Interpretation Code Neg-Trace AH Auto Urine SS Ketones Ql (U) Negative Invalid Interpretation Code Neg-Tracemg /dL AH Auto Urine SS UA Leuk Est Negative (01/11/23 4:06 PM) Invalid Interpretation Code Negative AH Auto Urine SS UA Nitrite Negative (01/11/23 4:06 PM) Invalid Interpretation Code Negative AH Auto Urine SS UA pH 5.5 (01/11/23 4:06 PM) Invalid Interpretation Code 5.0 - 8.0 AH Auto Urine SS UA Protein Negative Invalid Interpretation Code Negativemg/ dL AH Auto Urine SS UA RBC 0-2 /HPF Invalid Interpretation Code 0-2/HPF AH Auto Urine SS UA Spec Grav <=1.005 *ABN* (01/11/23 4:06 PM) Invalid Interpretation Code 1.006-1.029 AH Auto Urine SS UA Specimen Type Void (01/11/23 4:06 PM) Invalid Interpretation Code AH Auto Urine SS UA Squam Epithelial Negative Invalid Interpretation Code 0-20/HPF AH Auto Urine SS UA Urobilinogen 1.0 E.U./dL Invalid Interpretation Code 0.2-1.0E.U. /dL AH Auto Urine SS WBC LM.HPF (Urine sed) [#/Area] Negative Invalid Interpretation Code 0-5/HPF AH Auto Urine SS LABORATORYOrdered By: SYSTEM SYSTEM on 01-11-2023 Bili Indirect 2.0 mg/dL Invalid Interpretation Code 0.1 - 10.0 mg/dL Chemistry S Bilirubin.conjugated [Mass/Vol] 4.6 mg/dL Invalid Interpretation Code 0.0 - 0.4 mg/dL AH ADM SS No Panel Informationon 01-11 Microscopic examination of blood, culture Culture has been received in lab and is no growth to date. Routine cultures are held for 5 days. [facility] Culture Urine No growth at 48 hours. [facility] UAon 01-11-2023 Color (U) DARK YELLOW Normal [facility] [place] Comment [place] above: Performed By: #### C BC, ADIFF, ANEU, HFP, CMP, GFR #### [place] [address] Glucose (U) [Mass/Vol] Negative Normal Negative [facility] ([place] Comment on above: Performed By: #### C BC, ADIFF, ANEU, HFP, CMP, GFR #### [place] [phone] Ketones Ql (U) Negative Normal Neg-Trace [facility] ([place]) Comment on above: Performed By: #### C BC, ADIFF, ANEU, HFP, CMP, GFR #### [address] [address] UA Appear Clear Normal Clear [facility] ([place] Comment on above: Performed By: #### C BC, ADIFF, ANEU, HFP, CMP, GFR #### [address] [address] UA Blood Small Abnormal Neg-Trace [facility] ([place] Comment on above: Performed By: #### C BC, ADIFF, ANEU, HFP, CMP, GFR #### [address] [address] UA Leuk Est Negative Normal Negative [facility] [place] Comment on above: Performed By: #### C BC, ADIFF, ANEU, HFP, CMP, GFR #### [address] [address] UA Nitrite Negative Normal Negative [facility] ([place] Comment on above: Performed By: #### C BC, ADIFF, ANEU, HFP, CMP, GFR #### [address] [address] UA pH 5.5 Normal 5.0 - 8.0 [facility] ([place] Comment on above: Performed By: #### C BC, ADIFF, ANEU, HFP, CMP, GFR #### [address] [address] UA Protein Negative Normal Negative [facility] ([place] Comment on above: Performed By: #### C BC, ADIFF, ANEU, HFP, CMP, GFR #### [address] [address] UA Spec Grav <=1.005 Abnormal 1.006-1.029 [facility] ([place]) Comment on above: Performed By: #### C BC, ADIFF, ANEU, HFP, CMP, GFR #### [place] [address] UA Specimen Type Void Normal [facility] ([place] Comment on above: Performed By: #### C BC, ADIFF, ANEU, HFP, CMP, GFR #### [address] [address] UA Urobilinogen 1.0 E.U./dL Normal 0.2-1.0 [facility] ([place] Comment on above: Performed By: #### C BC, ADIFF, ANEU, HFP, CMP, GFR #### [address] [address] Urobilinogen (U) [Mass/Vol] Negative Normal Neg-Trace [facility] ([place] Comment on above: Performed By: #### C BC, ADIFF, ANEU, HFP, CMP, GFR #### [address] [address] UAMICon 01-11-2023 UA RBC 0-2 Normal 0-2 [facility] ([place] Comment on above: Performed By: #### C BC, ADIFF, ANEU, HFP, CMP, GFR #### [address] [address] UA Squam Epithelial Negative Normal 0-20 [facility] ([place]) Comment on above: Performed By: #### C BC, ADIFF, ANEU, HFP, CMP, GFR #### [address] [address] UA WBC Negative Normal 0-5 [facility] ([place] Comment on above: Performed By: #### C BC, ADIFF, ANEU, HFP, CMP, GFR #### [address] [address] .Auto Diffon 01-10-2023 Basophil, Absolute 0.0 10 3/mcL Normal 0.0-0.3 [facility] ([place] Comment on above: Performed By: #### C BC, ADIFF, ANEU, HFP, CMP, GFR #### [address] [address] Basophils/100 WBC (Bld) 0.2 % Normal 0.0-2.5 [facility] ([place] Comment on above: Performed By: #### C BC, ADIFF, ANEU, HFP, CMP, GFR #### [address] [address] Eosinophil, Absolute 0.0 10 3/mcL Normal 0.0-0.7 [facility] ([place]) Comment on above: Performed By: #### C BC, ADIFF, ANEU, HFP, CMP, GFR #### [address] [address] Eosinophils/100 WBC (Bld) 0.3 % Normal 0.0-6.0 [facility] ([place] Comment on above: Performed By: #### C BC, ADIFF, ANEU, HFP, CMP, GFR #### [address] [address] Lymphocyte, Absolute 0.5 10 3/mcL Low 0.9-4.3 [facility] ([place]) Comment on above: Performed By: #### C BC, ADIFF, ANEU, HFP, CMP, GFR #### [address] [address] Lymphocytes/100 WBC (Bld) 5.1 % Low 20.0-40.0 [facility] ([place] Comment on above: Performed By: #### C BC, ADIFF, ANEU, HFP, CMP, GFR #### [address] [address] Monocyte, Absolute 0.8 10 3/mcL Normal 0.1-1.4 [facility] ([place]) Comment on above: Performed By: #### C BC, ADIFF, ANEU, HFP, CMP, GFR #### [address] [address] Monocytes/100 WBC (Bld) 8.0 % Normal 2.0-13.0 [facility] ([place]) Comment on above: Performed By: #### C BC, ADIFF, ANEU, HFP, CMP, GFR #### [address] [address] Neutrophils/100 WBC (Bld) 86.4 % High 50.0-75.0 [facility] ([place]) Comment on above: Performed By: #### C BC, ADIFF, ANEU, HFP, CMP, GFR #### [address] [address] Basophil, Absolute 0.0 10 3/mcL Normal 0.0-0.2 [facility] ([place]) Comment on above: Performed By: #### C BC, ADIFF, ANEU, HFP, CMP, GFR #### [address] [address] Basophils/100 WBC (Bld) 0.7 % Normal 0.0-2.5 [facility] ([place] Comment on above: Performed By: #### C BC, ADIFF, ANEU, HFP, CMP, GFR #### [address] [address] Eosinophil, Absolute 0.1 10 3/mcL Normal 0.0-0.4 [facility] ([place]) Comment on above: Performed By: #### C BC, ADIFF, ANEU, HFP, CMP, GFR #### [address] [address] Eosinophils/100 WBC (Bld) 1.6 % Normal 0.0-7.0 [facility] ([place] Comment on above: Performed By: #### C BC, ADIFF, ANEU, HFP, CMP, GFR #### [address] [address] Lymphocyte, Absolute 0.8 10 3/mcL Normal 0.8-3.9 [facility] ([place]) Comment on above: Performed By: #### C BC, ADIFF, ANEU, HFP, CMP, GFR #### [address] [address] Lymphocytes/100 WBC (Bld) 12.7 % Normal 10.0-50.0 [facility] ([place] Comment on above: Performed By: #### C BC, ADIFF, ANEU, HFP, CMP, GFR #### [address] [address] Monocyte, Absolute 0.6 10 3/mcL Normal 0.2-1.0 [facility] ([place] Comment on above: Performed By: #### C BC, ADIFF, ANEU, HFP, CMP, GFR #### [address] [address] Monocytes/100 WBC (Bld) 9.1 % Normal 1.7-13.0 [facility] ([place] Comment on above: Performed By: #### C BC, ADIFF, ANEU, HFP, CMP, GFR #### [address] [address] Neutrophils/100 WBC (Bld) 75.9 % Normal 37.0-80.0 [facility] ([place] Comment on above: Performed By: #### C BC, ADIFF, ANEU, HFP, CMP, GFR #### [address] [address] .GFRon 01-10-2023 GFR >60 Normal [facility] ([place] Comment on above: Result Comment: GFR Population mean for , Non- Americans Ages 20-29 = 116 mL/min/1.73 sq.m. Ages 30-39 = 107 mL/min/1.73 sq.m. Ages 40-49 = 99 mL/min/1.73 sq.m. Ages 50-59 = 93 mL/min/1.73 sq.m. Ages 60-69 = 85 mL/min/1.73 sq.m. Ages 70+ = 75 mL/min/1.73 sq.m. Chronic Kidney Disease: Less than 60 mL/min/1.73 square meters End Stage Renal Disease: Less than 15 mL/min/1.73 square meters Performed By: #### C BC, ADIFF, ANEU, HFP, CMP, GFR #### [address] [address] GFR Non- >60 Normal [facility] ([place] Comment on above: Result Comment: GFR Population mean for , Non- Americans Ages 20-29 = 116 mL/min/1.73 sq.m. Ages 30-39 = 107 mL/min/1.73 sq.m. Ages 40-49 = 99 mL/min/1.73 sq.m. Ages 50-59 = 93 mL/min/1.73 sq.m. Ages 60-69 = 85 mL/min/1.73 sq.m. Ages 70+ = 75 mL/min/1.73 sq.m. Chronic Kidney Disease: Less than 60 mL/min/1.73 square meters End Stage Renal Disease: Less than 15 mL/min/1.73 square meters Performed By: #### C BC, ADIFF, ANEU, HFP, CMP, GFR #### [address] [address] GFR Non- 74 ml/min/1.73sqm Normal [facility] ([place] Comment on above: Result Comment: GFR Population mean for , Non- Americans Ages 20-29 = 116 mL/min/1.73 sq.m. Ages 30-39 = 107 mL/min/1.73 sq.m. Ages 40-49 = 99 mL/min/1.73 sq.m. Ages 50-59 = 93 mL/min/1.73 sq.m. Ages 60-69 = 85 mL/min/1.73 sq.m. Ages 70+ = 75 mL/min/1.73 sq.m. Chronic Kidney Disease: Less than 60 mL/min/1.73 square meters End Stage Renal Disease: Less than 15 mL/min/1.73 square meters Performed By: #### C BC, ADIFF, ANEU, HFP, CMP, GFR #### [place] [address] GFR 90 ml/min/1.73sqm Normal [facility] ([place] Comment on above: Result Comment: GFR Population mean for , Non- Americans Ages 20-29 = 116 mL/min/1.73 sq.m. Ages 30-39 = 107 mL/min/1.73 sq.m. Ages 40-49 = 99 mL/min/1.73 sq.m. Ages 50-59 = 93 mL/min/1.73 sq.m. Ages 60-69 = 85 mL/min/1.73 sq.m. Ages 70+ = 75 mL/min/1.73 sq.m. Chronic Kidney Disease: Less than 60 mL/min/1.73 square meters End Stage Renal Disease: Less than 15 mL/min/1.73 square meters Performed By: #### C BC, ADIFF, ANEU, HFP, CMP, GFR #### [place] [address] .MDWon 01-10-2023 Monocyte Distribution Width 16.66 Normal 0.00-20.00 [facility] [place] Comment on above: Result Comment: For ED adult patients suspected of sepsis, MDW<=20.0 does not rule out sepsis or risk of sepsis Performed By: #### C BC, ADIFF, ANEU, HFP, CMP, GFR #### [place] [address] .NEUABSon 01-10-2023 Neutrophil, Absolute 9.2 10 3/mcL High 2.3-8.1 [facility] ([place]) Comment on above: Performed By: #### C BC, ADIFF, ANEU, HFP, CMP, GFR #### [place] [address] Neutrophil, Absolute 4.9 10 3/mcL Normal 2.9-6.2 [facility] ([place] Comment on above: Performed By: #### C BC, ADIFF, ANEU, HFP, CMP, GFR #### [place] [address] AMOXICILLIN+CLAVULANATE:SUSC :PT:ISOLATE:ORDQN:MICOrdered By: Nisha Lira on 01-10-2023 Amoxicillin+Clavulan ate LUIS FERNANDO [Susc] Carbapenem Resistant Enterobacteriaceae Isolated from aerobe bottle only. Infection control has been notified. PCR for Carbapenemase Producing Genes (CR-CRE) to follow Klebsiella pneumoniae Isolated from anaerobe bottle only. [facility] AMOXICILLIN+CLAVULANATE:SUSC :PT:ISOLATE:ORDQN:MICon 01-10-2023 GSANA Gram Negative [facility] Amoxicillin+Clavulanate LUIS FERNANDO [Susc]Ordered By: Nisha Lira on 01-10-2023 Carbapenem Resistant Enterobacteriaceae Carbapenem Resistant Enterobacteriaceae [facility] GSAER Gram Negative [facility] Klebsiella pneumoniae Klebsiella pneumoniae [facility] CBCon 01-10-2023 Erythrocyte distribution width (RBC) [Ratio] 13.9 % Normal 11.5-15.5 [facility] ([place]) Comment on above: Performed By: #### C BC, ADIFF, ANEU, HFP, CMP, GFR #### [address] [address] Hematocrit (Bld) [Volume fraction] 42.9 % Normal 40.0-52.0 [facility] ([place]) Comment on above: Performed By: #### C BC, ADIFF, ANEU, HFP, CMP, GFR #### [address] [address] Hgb 14.4 G/dL Normal 13.0-17.5 [facility] ([place]) Comment on above: Performed By: #### C BC, ADIFF, ANEU, HFP, CMP, GFR #### [address] [address] MCH (RBC) [Entitic mass] 30.6 pg Normal 27.0-33.0 [facility] ([place]) Comment on above: Performed By: #### C BC, ADIFF, ANEU, HFP, CMP, GFR #### [address] [address] MCHC 33.6 G/dL Normal 32.0-36.0 [facility] ([place]) Comment on above: Performed By: #### C BC, ADIFF, ANEU, HFP, CMP, GFR #### [place] [address] MCV (RBC) [Entitic vol] 91.1 fL Normal 81.0-100.0 [facility] ([place]) Comment on above: Performed By: #### C BC, ADIFF, ANEU, HFP, CMP, GFR #### [place] [address] Platelet 287 10 3/mcL Normal 150-450 [facility] ([place]) Comment on above: Performed By: #### C BC, ADIFF, ANEU, HFP, CMP, GFR #### [place] [address] Platelet mean volume (Bld) [Entitic vol] 7.0 fL Normal 6.4-10.5 [facility] ([place]) Comment on above: Performed By: #### C BC, ADIFF, ANEU, HFP, CMP, GFR #### [place] [address] RBC 4.71 10 6/mcL Normal 4.50-6.00 [facility] ([place]) Comment on above: Performed By: #### C BC, ADIFF, ANEU, HFP, CMP, GFR #### [place] [id number] WBC 10.6 10 3/mcL Normal 4.5-10.8 [facility] ([place]) Comment on above: Performed By: #### C BC, ADIFF, ANEU, HFP, CMP, GFR #### [place] [address] Erythrocyte distribution width (RBC) [Ratio] 13.8 % Normal 11.5-14.5 [facility] ([place]) Comment on above: Performed By: #### C BC, ADIFF, ANEU, HFP, CMP, GFR #### [place] [address] Hematocrit (Bld) [Volume fraction] 41.1 % Low 42.0-52.0 [facility] ([place] Comment on above: Performed By: #### C BC, ADIFF, ANEU, HFP, CMP, GFR #### [place] [address] Hgb 14.4 G/dL Normal 14.0-18.0 [facility] ([place] Comment on above: Performed By: #### C BC, ADIFF, ANEU, HFP, CMP, GFR #### [place] [address] MCH (RBC) [Entitic mass] 31.0 pg Normal 27.0-31.2 [facility] ([place]) Comment on above: Performed By: #### C BC, ADIFF, ANEU, HFP, CMP, GFR #### [place] [address] MCHC 34.9 G/dL Normal 31.8-35.4 [facility] ([place] Comment on above: Performed By: #### C BC, ADIFF, ANEU, HFP, CMP, GFR #### [place] [address] MCV (RBC) [Entitic vol] 88.6 fL Normal 80.0-94.0 [facility] ([place]) Comment on above: Performed By: #### C BC, ADIFF, ANEU, HFP, CMP, GFR #### [place] [address] Platelet 284 10 3/mcL Normal 130-400 [facility] ([place]) Comment on above: Performed By: #### C BC, ADIFF, ANEU, HFP, CMP, GFR #### [place] [address] Platelet mean volume (Bld) [Entitic vol] 6.6 fL Low 7.4-10.4 [facility] ([place]) Comment on above: Performed By: #### C BC, ADIFF, ANEU, HFP, CMP, GFR #### [place] [address] RBC 4.64 10 6/mcL Normal 4.04-6.13 [facility] ([place]) Comment on above: Performed By: #### C BC, ADIFF, ANEU, HFP, CMP, GFR #### [place] [address] WBC 6.5 10 3/mcL Normal 4.6-10.8 [facility] ([place]) Comment on above: Performed By: #### C BC, ADIFF, ANEU, HFP, CMP, GFR #### [address] [address] CMPon 01-10-2023 Albumin Level 3.4 G/dL Normal 3.2-4.8 [facility] ([place]) Comment on above: Performed By: #### C BC, ADIFF, ANEU, HFP, CMP, GFR #### [address] [address] Albumin/Globulin [Mass ratio] 1.1 {ratio} Normal 0.9-1.6 [facility] ([place]) Comment on above: Performed By: #### C BC, ADIFF, ANEU, HFP, CMP, GFR #### [address] [address] ALP [Catalytic activity/Vol] 172 U/L High 38-126 [facility] ([place]) Comment on above: Performed By: #### C BC, ADIFF, ANEU, HFP, CMP, GFR #### [address] [address] ALT [Catalytic activity/Vol] 536 U/L High 12-55 [facility] ([place]) Comment on above: Performed By: #### C BC, ADIFF, ANEU, HFP, CMP, GFR #### [address] [address] AST [Catalytic activity/Vol] 335 U/L High 8-34 [facility] ([place]) Comment on above: Performed By: #### C BC, ADIFF, ANEU, HFP, CMP, GFR #### [address] [address] Bili Total 3.20 mg/dL High 0.20-1.20 [facility] ([place]) Comment on above: Result Comment: Use of this assay is not recommended for patients undergoing treatment with eltrombopag due to the potential for falsely elevated results. Performed By: #### C BC, ADIFF, ANEU, HFP, CMP, GFR #### [address] [address] BUN/Creatinine Ratio 18.3 ratio Normal 10.0-22.0 [facility] ([place]) Comment on above: Performed By: #### C BC, ADIFF, ANEU, HFP, CMP, GFR #### [address] [address] Calcium [Mass/Vol] 8.8 mg/dL Normal 8.7-10.4 [facility] ([place]) Comment on above: Performed By: #### C BC, ADIFF, ANEU, HFP, CMP, GFR #### [address] [address] Chloride [Moles/Vol] 104 mmol/L Normal 98-110 [facility] ([place]) Comment on above: Performed By: #### C BC, ADIFF, ANEU, HFP, CMP, GFR #### [address] [address] CO2 [Moles/Vol] 26 mmol/L Normal 22-32 [facility] ([place]) Comment on above: Performed By: #### C BC, ADIFF, ANEU, HFP, CMP, GFR #### [place] [phone] Creatinine [Mass/Vol] 0.82 mg/dL Normal 0.60-1.40 [facility] ([place]) Comment on above: Performed By: #### C BC, ADIFF, ANEU, HFP, CMP, GFR #### [address] [address] Electrolyte Balance 8.0 mEq/L Normal 4.0-15.0 [facility] ([place]) Comment on above: Performed By: #### C BC, ADIFF, ANEU, HFP, CMP, GFR #### [address] [address] Globulin 3.1 G/dL Normal 1.5-3.8 [facility] ([place]) Comment on above: Performed By: #### C BC, ADIFF, ANEU, HFP, CMP, GFR #### [address] [address] Glucose [Mass/Vol] 118 mg/dL High 82-115 [facility] ([place]) Comment on above: Performed By: #### C BC, ADIFF, ANEU, HFP, CMP, GFR #### [address] [address] Potassium [Moles/Vol] 4.5 mmol/L Normal 3.5-5.0 [facility] ([place]) Comment on above: Performed By: #### C BC, ADIFF, ANEU, HFP, CMP, GFR #### [address] [address] Sodium [Moles/Vol] 138 mmol/L Normal 136-145 [facility] ([place]) Comment on above: Performed By: #### C BC, ADIFF, ANEU, HFP, CMP, GFR #### [address] [address] Total Protein 6.5 G/dL Normal 5.7-8.2 [facility] ([place]) Comment on above: Result Comment: No te - New Reference Range in effect 20 Performed By: #### C BC, ADIFF, ANEU, HFP, CMP, GFR #### [address] [address] Urea nitrogen [Mass/Vol] 15.0 mg/dL Normal 8.0-22.0 [facility] ([place]) Comment on above: Performed By: #### C BC, ADIFF, ANEU, HFP, CMP, GFR #### [address] [address] Albumin Level 3.4 G/dL Normal 3.4-4.8 [facility] ([place]) Comment on above: Performed By: #### C BC, ADIFF, ANEU, HFP, CMP, GFR #### [address] [address] Albumin/Globulin [Mass ratio] 1.0 {ratio} Low 1.1-2.5 [facility] ([place]) Comment on above: Performed By: #### C BC, ADIFF, ANEU, HFP, CMP, GFR #### [address] [address] ALP [Catalytic activity/Vol] 145 U/L High 40-135 [facility] ([place]) Comment on above: Performed By: #### C BC, ADIFF, ANEU, HFP, CMP, GFR #### [address] [address] ALT [Catalytic activity/Vol] 265 U/L High 16-63 [facility] ([place]) Comment on above: Performed By: #### C BC, ADIFF, ANEU, HFP, CMP, GFR #### [address] [address] AST [Catalytic activity/Vol] 283 U/L High 10-40 [facility] ([place]) Comment on above: Performed By: #### C BC, ADIFF, ANEU, HFP, CMP, GFR #### [address] [address] Bili Total 1.5 mg/dL High 0.2-1.0 [facility] ([place]) Comment on above: Result Comment: Use of this assay is not recommended for patients undergoing treatment with eltrombopag due to the potential for falsely elevated results. Performed By: #### C BC, ADIFF, ANEU, HFP, CMP, GFR #### [place] [phone] BUN/Creatinine Ratio 20 ratio Normal 7-27 [facility] ([place]) Comment on above: Performed By: #### C BC, ADIFF, ANEU, HFP, CMP, GFR #### [address] [address] Calcium [Mass/Vol] 8.7 mg/dL Normal 8.4-10.2 [facility] ([place]) Comment on above: Performed By: #### C BC, ADIFF, ANEU, HFP, CMP, GFR #### [address] [address] Chloride [Moles/Vol] 103 mmol/L Normal 98-107 [facility] ([place]) Comment on above: Performed By: #### C BC, ADIFF, ANEU, HFP, CMP, GFR #### [address] [address] CO2 [Moles/Vol] 27 mmol/L Normal 23-31 [facility] ([place]) Comment on above: Performed By: #### C BC, ADIFF, ANEU, HFP, CMP, GFR #### [address] [address] Creatinine [Mass/Vol] 1.02 mg/dL Normal 0.70-1.30 [facility] ([place]) Comment on above: Performed By: #### C BC, ADIFF, ANEU, HFP, CMP, GFR #### [address] [address] Electrolyte Balance 8.0 mEq/L Normal 4.0-15.0 [facility] ([place]) Comment on above: Performed By: #### C BC, ADIFF, ANEU, HFP, CMP, GFR #### [address] [address] Globulin 3.3 G/dL Normal [facility] ([place]) Comment on above: Performed By: #### C BC, ADIFF, ANEU, HFP, CMP, GFR #### [address] [address] Glucose [Mass/Vol] 156 mg/dL High 80-115 [facility] ([place]) Comment on above: Performed By: #### C BC, ADIFF, ANEU, HFP, CMP, GFR #### [address] [address] Potassium [Moles/Vol] 4.4 mmol/L Normal 3.5-5.1 [facility] ([place]) Comment on above: Performed By: #### C BC, ADIFF, ANEU, HFP, CMP, GFR #### [address] [address] Sodium [Moles/Vol] 138 mmol/L Normal 136-145 [facility] ([place]) Comment on above: Performed By: #### C BC, ADIFF, ANEU, HFP, CMP, GFR #### [address] [address] Total Protein 6.7 G/dL Normal 6.4-8.2 [facility] ([place]) Comment on above: Performed By: #### C BC, ADIFF, ANEU, HFP, CMP, GFR #### [facility] [address] [place] [address] Urea nitrogen [Mass/Vol] 20 mg/dL High 7-18 [facility] ([place]) Comment on above: Performed By: #### C BC, ADIFF, ANEU, HFP, CMP, GFR #### [facility] [address] [place] [address] [address] ABD/PELVIS W/ IV CONTRAST ONLYon 01-10-2023 CT ABD/PELVIS W/ IV CONTRAST ONLY ORIGINAL EXAMINATION: CT OF THE ABDOMEN AND PELVIS WITH CONTRAST 01/09/2023 11:56 pm TECHNIQUE: CT of the abdomen and pelvis was performed with the administration of intravenous contrast. Multiplanar reformatted images are provided for review. Automated exposure control, iterative reconstruction, and/or weight based adjustment of the mA/kV was utilized to reduce the radiation dose to as low as reasonably achievable. COMPARISON: CT abdomen and pelvis on 11/07/2022 HISTORY: ORDERING SYSTEM PROVIDED HISTORY: Reason for Exam: pain Right abdominal pain FINDINGS: Lower Chest: The heart size is at the upper limits of normal. There is mild hypoventilation of the lung bases. 6 mm left lower lobe pulmonary nodule (series 3, image 20 is unchanged since 11/07/2022. There is no pleural fluid. Organs: The liver is normal in size. There is no hepatic lesion. Gallbladder contains gallstones. There is mild gallbladder wall thickening and pericholecystic inflammation that is new compared with previous exam. The bile ducts are not dilated. The pancreas, spleen, adrenal glands, and kidneys show no sign of acute abnormality. 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 There is no hydronephrosis. 2 cm right renal cyst is stable. GI/Bowel: There is no intestinal obstruction or inflammation. The appendix is normal. No abnormal fluid or gas collection is present in the abdomen. Pelvis: Urinary bladder is normal in size and contains no stones. Prostate is not enlarged. There is no abnormal fluid collection in the pelvis. Peritoneum/Retroperitone um: Abdominal aorta is nonaneurysmal. No retroperitoneal lymph node enlargement is present. Bones/Soft Tissues: There are moderate findings of degenerative disc disease in the lumbar spine without fracture or subluxation. No acute or aggressive osseous lesion is present. IMPRESSION: Evidence of cholelithiasis with cholecystitis. No biliary ductal dilatation. 6 mm left lower lobe nodule is unchanged since 11/07/2022. Recommend continued with follow-up chest CT in 12 months. If patient is high risk for malignancy recommend an additional noncontrast chest CT at 18-24 months. Interpreted by: Pineda Candelario MD Preliminary Report By: Pineda Candelario MD Electronically signed By Pineda Candelario MD Dictated Date: 01/09/2023 11:58:47 PM Prelim Date: 01/10/2023 12:06:08 AM Sign Date: 01/10/2023 12:06:08 AM Ordering Provider: LATOYA HERRERA [facility] ([place]) LABORATORYOrdered By: Amina Lanza on 01-10-2023 Lactate [Moles/Vol] 1.5 mmol/L Invalid Interpretation Code 0.2 - 2.0 mmol/L AH Auto Chem SS LABORATORYOrdered By: Vincent Tello on 01-10-2023 ACINETOBACTER CALCOACETICUS-YOVANA MATY COMPLEX DNA:PRTHR:PT:BLD.POS GROWTH:ORD:NON-PROBE .AMP.TAR Not Detected *NA* (01/10/23 1:37 PM) Invalid Interpretation Code Not Detected AH Auto Microbiology GL SS BACTERIAL METHICILLIN RESISTANCE MECA+MECC GENES+SCCMEC+ORFX JUNCTION:PRTHR:PT:IS OLATE/SPECIMEN:ORD:M OLGEN Not Applicable *NA* (01/10/23 1:37 PM) Invalid Interpretation Code Not Detected [facility] Auto Microbiology GL SS BACTEROIDES FRAGILIS DNA:PRTHR:PT:BLD.POS GROWTH:ORD:NON-PROBE .AMP.TAR Not Detected *NA* (01/10/23 1:37 PM) Invalid Interpretation Code Not Detected AH Auto Microbiology GL SS BCID Comment See Comment (01/10/23 1:37 PM) Invalid Interpretation Code AH Auto Microbiology GL SS C. albicans DNA CELENA+non-probe Ql (Pos bld culture) Not Detected *NA* (01/10/23 1:37 PM) Invalid Interpretation Code Not Detected AH Auto Microbiology GL SS C. glabrata DNA CELENA+non-probe Ql (Pos bld culture) Not Detected *NA* (01/10/23 1:37 PM) Invalid Interpretation Code Not Detected AH Auto Microbiology GL SS C. krusei DNA CELENA+non-probe Ql (Pos bld culture) Not Detected *NA* (01/10/23 1:37 PM) Invalid Interpretation Code Not Detected AH Auto Microbiology GL SS C. parapsilosis DNA CELENA+non-probe Ql (Pos bld culture) Not Detected *NA* (01/10/23 1:37 PM) Invalid Interpretation Code Not Detected AH Auto Microbiology GL SS C. tropicalis DNA CELENA+non-probe Ql (Pos bld culture) Not Detected *NA* (01/10/23 1:37 PM) Invalid Interpretation Code Not Detected AH Auto Microbiology GL SS EMEKA AURIS DNA:PRTHR:PT:BLD.POS GROWTH:ORD:NON-PROBE .AMP.TAR Not Detected *NA* (01/10/23 1:37 PM) Invalid Interpretation Code Not Detected AH Auto Microbiology GL SS Carbapenem resistance jimenez OXA-48-like gene Molgen Ql (Islt/Spec) Not Detected *NA* (01/10/23 1:37 PM) Invalid Interpretation Code Not Detected AH Auto Microbiology GL SS Carbapenem resistance blaIMP gene Molgen Ql (Islt/Spec) Not Detected *NA* (01/10/23 1:37 PM) Invalid Interpretation Code Not Detected AH Auto Microbiology GL SS Carbapenem resistance blaKPC gene Molgen Ql (Islt/Spec) Not Detected *NA* (01/10/23 1:37 PM) Invalid Interpretation Code Not Detected AH Auto Microbiology GL SS Carbapenem resistance blaNDM gene Molgen Ql (Islt/Spec) Not Detected *NA* (01/10/23 1:37 PM) Invalid Interpretation Code Not Detected AH Auto Microbiology GL SS Carbapenem resistance blaVIM gene Molgen Ql (Islt/Spec) Not Detected *NA* (01/10/23 1:37 PM) Invalid Interpretation Code Not Detected AH Auto Microbiology GL SS Cephalosporin resistance jimenez(CTX-M) gene Molgen Ql (Islt/Spec) Not Detected *NA* (01/10/23 1:37 PM) Invalid Interpretation Code Not Detected AH Auto Microbiology GL SS Colistin resistance mcr-1 gene Molgen Ql (Islt/Spec) Not Detected *NA* (01/10/23 1:37 PM) Invalid Interpretation Code Not Detected AH Auto Microbiology GL SS CRYPTOCOCCUS GATTII+NEOFORMANS DNA:PRTHR:PT:BLD.POS GROWTH:ORD:NON-PROBE .AMP.TAR Not Detected *NA* (01/10/23 1:37 PM) Invalid Interpretation Code Not Detected AH Auto Microbiology GL SS E. cloacae complex DNA CELENA+non-probe Ql (Pos bld culture) Not Detected *NA* (01/10/23 1:37 PM) Invalid Interpretation Code Not Detected AH Auto Microbiology GL SS E. coli DNA CELENA+non-probe Ql (Pos bld culture) Not Detected *NA* (01/10/23 1:37 PM) Invalid Interpretation Code Not Detected AH Auto Microbiology GL SS ENTEROBACTERALES DNA:PRTHR:PT:BLD.POS GROWTH:ORD:NON-PROBE .AMP.TAR Detected *ABN* (01/10/23 1:37 PM) Invalid Interpretation Code Not Detected AH Auto Microbiology GL SS ENTEROCOCCUS FAECALIS DNA:PRTHR:PT:BLD.POS GROWTH:ORD:NON-PROBE .AMP.TAR Not Detected *NA* (01/10/23 1:37 PM) Invalid Interpretation Code Not Detected AH Auto Microbiology GL SS ENTEROCOCCUS FAECIUM DNA:PRTHR:PT:BLD.POS GROWTH:ORD:NON-PROBE .AMP.TAR Not Detected *NA* (01/10/23 1:37 PM) Invalid Interpretation Code Not Detected AH Auto Microbiology GL SS H. influenzae DNA CELENA+non-probe Ql (Pos bld culture) Not Detected *NA* (01/10/23 1:37 PM) Invalid Interpretation Code Not Detected AH Auto Microbiology GL SS K. oxytoca DNA CELENA+non-probe Ql (Pos bld culture) Not Detected *NA* (01/10/23 1:37 PM) Invalid Interpretation Code Not Detected AH Auto Microbiology GL SS KLEBSIELLA AEROGENES DNA:PRTHR:PT:BLD.POS GROWTH:ORD:NON-PROBE .AMP.TAR Detected *ABN* (01/10/23 1:37 PM) Invalid Interpretation Code Not Detected AH Auto Microbiology GL SS KLEBSIELLA PNEUMONIAE+KLEBSIELL A VARIICOLA+KLEBSIELLA QUASIPNEUMONIAE DNA:PRTHR:PT:BLD.POS GROWTH:ORD:NON-PROBE .AMP.TAR Not Detected *NA* (01/10/23 1:37 PM) Invalid Interpretation Code Not Detected AH Auto Microbiology GL SS L. monocytogenes DNA CELENA+non-probe Ql (Pos bld culture) Not Detected *NA* (01/10/23 1:37 PM) Invalid Interpretation Code Not Detected AH Auto Microbiology GL SS Methicillin resistance mecA+mecC genes Molgen Ql (Islt/Spec) Not Applicable *NA* (01/10/23 1:37 PM) Invalid Interpretation Code Not Detected AH Auto Microbiology GL SS N. meningitidis DNA CELENA+non-probe Ql (Pos bld culture) Not Detected *NA* (01/10/23 1:37 PM) Invalid Interpretation Code Not Detected AH Auto Microbiology GL SS P. aeruginosa DNA CELENA+non-probe Ql (Pos bld culture) Not Detected *NA* (01/10/23 1:37 PM) Invalid Interpretation Code Not Detected AH Auto Microbiology GL SS Proteus sp DNA CELENA+non-probe Ql (Pos bld culture) Not Detected *NA* (01/10/23 1:37 PM) Invalid Interpretation Code Not Detected AH Auto Microbiology GL SS S. agalactiae DNA CELENA+non-probe Ql (Pos bld culture) Not Detected *NA* (01/10/23 1:37 PM) Invalid Interpretation Code Not Detected AH Auto Microbiology GL SS S. aureus DNA CELENA+non-probe Ql (Pos bld culture) Not Detected *NA* (01/10/23 1:37 PM) Invalid Interpretation Code Not Detected AH Auto Microbiology GL SS S. marcescens DNA CELENA+non-probe Ql (Pos bld culture) Not Detected *NA* (01/10/23 1:37 PM) Invalid Interpretation Code Not Detected AH Auto Microbiology GL SS S. pneumoniae DNA CELENA+non-probe Ql (Pos bld culture) Not Detected *NA* (01/10/23 1:37 PM) Invalid Interpretation Code Not Detected AH Auto Microbiology GL SS S. pyogenes DNA CELENA+non-probe Ql (Pos bld culture) Not Detected *NA* (01/10/23 1:37 PM) Invalid Interpretation Code Not Detected AH Auto Microbiology GL SS SALMONELLA SP DNA:PRTHR:PT:BLD.POS GROWTH:ORD:NON-PROBE .AMP.TAR Not Detected *NA* (01/10/23 1:37 PM) Invalid Interpretation Code Not Detected AH Auto Microbiology GL SS STAPHYLOCOCCUS EPIDERMIDIS DNA:PRTHR:PT:BLD.POS GROWTH:ORD:NON-PROBE .AMP.TAR Not Detected *NA* (01/10/23 1:37 PM) Invalid Interpretation Code Not Detected AH Auto Microbiology GL SS STAPHYLOCOCCUS LUGDUNENSIS DNA:PRTHR:PT:BLD.POS GROWTH:ORD:NON-PROBE .AMP.TAR Not Detected *NA* (01/10/23 1:37 PM) Invalid Interpretation Code Not Detected AH Auto Microbiology GL SS Staphylococcus sp DNA CELENA+non-probe Ql (Pos bld culture) Not Detected *NA* (01/10/23 1:37 PM) Invalid Interpretation Code Not Detected AH Auto Microbiology GL SS STENOTROPHOMONAS MALTOPHILIA DNA:PRTHR:PT:BLD.POS GROWTH:ORD:NON-PROBE .AMP.TAR Not Detected *NA* (01/10/23 1:37 PM) Invalid Interpretation Code Not Detected AH Auto Microbiology GL SS Streptococcus sp DNA CELENA+non-probe Ql (Pos bld culture) Not Detected *NA* (01/10/23 1:37 PM) Invalid Interpretation Code Not Detected AH Auto Microbiology GL SS Vancomycin resistance Brian + vanB genes Molgen Ql (Islt/Spec) Not Applicable *NA* (01/10/23 1:37 PM) Invalid Interpretation Code Not Detected AH Auto Microbiology GL SS LABORATORYOrdered By: Evangelista Howard on 01-10-2023 INR Coag (PPP) [Relative time] 1.0 {INR} Invalid Interpretation Code AH Auto Coag SS PT Coag (PPP) [Time] 12.1 s Invalid Interpretation Code 9.0 - 14.8 seconds AH Auto Coag SS LABORATORYOrdered By: Romain Freed on 01-10-2023 Lactate [Moles/Vol] 2.0 mmol/L Invalid Interpretation Code 0.2 - 2.0 mmol/L AH Auto Chem SS LABORATORYOrdered By: SYSTEM SYSTEM on 01-10-2023 Lipase [Catalytic activity/Vol] 17 U/L Invalid Interpretation Code 12 - 53 U/L AH ADM SS Magnesium [Mass/Vol] 1.8 mg/dL Invalid Interpretation Code 1.6 - 2.4 mg/dL AH ADM SS LACon 01-10-2023 Lactic Acid Lvl 1.5 mmol/L Normal 0.2-2.0 [facility] ([place]) Comment on above: Order Comment: Order ed secondary to Lactic Acid result greater than or equal to 2.0 Performed By: #### L AC #### [address] [address] Lactic Acid Lvl 2.0 mmol/L Normal 0.2-2.0 [facility] ([place]) Comment on above: Performed By: #### C BC, ADIFF, ANEU, HFP, CMP, GFR #### [address] [address] LIPon 01-10-2023 Lipase Level 17 U/L Normal 12-53 [facility] ([place]) Comment on above: Result Comment: No te - New Reference Range in effect 20 Performed By: #### C BC, ADIFF, ANEU, HFP, CMP, GFR #### [place] [address] Lipase Level 18 U/L Normal 16-77 [facility] ([place]) Comment on above: Performed By: #### C BC, ADIFF, ANEU, HFP, CMP, GFR #### [place] [id number] MGon 01-10-2023 Magnesium [Mass/Vol] 1.8 mg/dL Normal 1.6-2.4 [facility] ([place]) Comment on above: Performed By: #### C BC, ADIFF, ANEU, HFP, CMP, GFR #### [place] [id number] MRI MRCPon 01-10-2023 MRI MRCP ORIGINAL EXAMINATION: MRCP 01/10/2023 2:34 pm TECHNIQUE: After initial T2 axial and coronal images, thick slab, thin slab and 3D coronal MRCP sequences were obtained without the administration of intravenous contrast. MIP images are provided for review. COMPARISON: Ultrasound January 10, 2023, CT scan January 09, 2023, CT scan November 07, 2022 HISTORY: ORDERING SYSTEM PROVIDED HISTORY: Reason for Exam: RRUQ pain, > LFT, reported GB removed but CT & US show it is present, Past ERCP's stents removed FINDINGS: The intrahepatic bile ducts are normal in caliber. The common bile duct is normal in caliber as well for age, 8 mm. It tapers normally distally, with no defect to suggest stone. There is an oblong tubular septated structure extending from the common hepatic duct to the region of the gallbladder fossa. With given history of previous cholecystectomy, this is probably a very large cystic duct remnant. Within this remnant, there are several low signal defects present measuring up to 9 mm in size. This may represent retained stones. The pancreatic parenchyma and pancreatic duct are unremarkable. No additional contributory finding. IMPRESSION: 1. No biliary dilatation and no evidence for choledocholithiasis. 2. Large tubular septated structure extending from the common hepatic duct of the gallbladder fossa. I suspect that this represents a large and mildly dilated cystic duct remnant. There is suspicion for retained stones within the cystic duct remnant as well. Interpreted by: Marry Argueta MD Preliminary Report By: Marry Argueta MD Electronically signed By Marry Argueta MD Dictated Date: 01/10/2023 4:22:11 PM Prelim Date: 01/10/2023 4:30:41 PM Sign Date: 01/10/2023 4:30:41 PM Ordering Provider: JULIANA Sahni [facility] ([place]) No Panel Informationon 01-10 Microscopic examination of blood, culture Klebsiella pneumoniae Isolated from anaerobe bottle only. Refer to previous culture for susceptibility. [id number] collected on 01/10/23 [facility] PROon 01-10-2023 INR Coag (PPP) [Relative time] 1.0 {INR} Normal [facility] ([place]) Comment on above: Result Comment: The [employer] (CHEST, 1992, 102:312S-25S) recommended therapeutic range for oral anticoagulant therapy is: LOW RISK: Prophylaxis of venous thrombosis INR: 2.0-3.0 Treatment of pulmonary embolism 2.0-3.0 Prevention of systemic embolism 2.0-3.0 HIGH RISK: Mechanical prosthetic valves 2.5-3.5 Performed By: #### C BC, ADIFF, ANEU, HFP, CMP, GFR #### [place] [address] PT Coag (PPP) [Time] 12.1 s Normal 9.0-14.8 [facility] ([place]) Comment on above: Result Comment: Effe ctive 03/26/08, Protime results may be affected by some antibiotics (i.e. Ciprofloxacin, Azithromycin, Bactrim) which may potentiate the action of oral anticoagulants, with further increases in Protime/INR. Performed By: #### C BC, ADIFF, ANEU, HFP, CMP, GFR #### [place] [id number] [place], [place] [id number] US ABDOMEN LIMITEDon 023 US ABDOMEN LIMITED ORIGINAL EXAMINATION: RIGHT UPPER QUADRANT ULTRASOUND 01/10/2023 12:53 am COMPARISON: CT abdomen and pelvis 01/09/2023 HISTORY: ORDERING SYSTEM PROVIDED HISTORY: Reason for Exam: RUQ pain FINDINGS: LIVER: The liver demonstrates normal echogenicity without evidence of intrahepatic biliary ductal dilatation. BILIARY SYSTEM: Gallbladder is has a folded/septated contour, stable from the prior CT. There is trace pericholecystic fluid. Negative sonographic Hatch's sign. Common bile duct is within normal limits measuring 13 mm proximally. RIGHT KIDNEY: The right kidney is grossly stable without evidence of hydronephrosis. 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 PANCREAS: Visualized portions of the pancreas are unremarkable. OTHER: No evidence of right upper quadrant ascites. IMPRESSION: 1. Largely stable appearance of the gallbladder when compared to recent CT with folded/septated contour and trace pericholecystic fluid. Findings likely reflect acute cholecystitis. 2. Common bile duct appears dilated, measuring 13 mm proximally, not well visualized distally. RECOMMENDATIONS: Unavailable Interpreted by: Kole Martinez Preliminary Report By: Kole Martinez Electronically signed By Kole Martinez Dictated Date: 01/10/2023 12:53:55 AM Prelim Date: 01/10/2023 1:05:30 AM Sign Date: 01/10/2023 1:05:30 AM Ordering Provider: LATOYA HERRERA [facility] ([place]) XR FOREIGN BODY LOC EYE BILA TERALon 01-10-2023 XR FOREIGN BODY LOC EYE BILATERAL ORIGINAL EXAMINATION: XR OR FOREIGN BODY, 1 x-ray view of the orbits 01/10/2023 1:55 pm COMPARISON: None. HISTORY: ORDERING SYSTEM PROVIDED HISTORY: Reason for Exam: r/o metal shavings FINDINGS: No metallic intraorbital foreign body. Examination is degraded by motion artifact. Included paranasal sinuses and mastoid air cells are grossly clear. IMPRESSION: No metallic intraorbital foreign body. Interpreted by: Christelle Casillas MD Preliminary Report By: Christelle Casillas MD Electronically signed By Christelle Casillas MD Dictated Date: 01/10/2023 1:57:15 PM Prelim Date: 01/10/2023 1:58:20 PM Sign Date: 01/10/2023 1:58:20 PM Ordering Provider: JULIANA MOSQUEDA [facility] ([place]) LABORATORYOrdered By: SYSTEM SYSTEM on 01-09-2023 Albumin BCP dye [Mass/Vol] 3.4 G/dL Invalid Interpretation Code 3.4 - 4.8 G/dL AO ADM SS Albumin/Globulin [Mass ratio] 1.0 {ratio} Invalid Interpretation Code 1.1 - 2.5 ratio AO ADM SS ALP [Catalytic activity/Vol] 145 U/L Invalid Interpretation Code 40 - 135 U/L AO ADM SS ALT With P-5'-P [Catalytic activity/Vol] 265 U/L Invalid Interpretation Code 16 - 63 U/L AO ADM SS AST With P-5'-P [Catalytic activity/Vol] 283 U/L Invalid Interpretation Code 10 - 40 U/L AO ADM SS Bilirubin [Mass/Vol] 1.5 mg/dL Invalid Interpretation Code 0.2 - 1.0 mg/dL AO ADM SS Calcium [Mass/Vol] 8.7 mg/dL Invalid Interpretation Code 8.4 - 10.2 mg/dL AO ADM SS Chloride [Moles/Vol] 103 mmol/L Invalid Interpretation Code 98 - 107 mmol/L AO ADM SS CO2 [Moles/Vol] 27 mmol/L Invalid Interpretation Code 23 - 31 mmol/L AO ADM SS Creatinine [Mass/Vol] 1.02 mg/dL Invalid Interpretation Code 0.70 - 1.30 mg/dL AO ADM SS Electrolyte Balance 8.0 mEq/L Invalid Interpretation Code 4.0 - 15.0 mEq/L AO ADM SS GFR/1.73 sq M.predicted among blacks MDRD (S/P/Bld) [Vol rate/Area] 90 ml/min/1.73sqm Invalid Interpretation Code AO Chemistry S GFR/1.73 sq M.predicted among non-blacks MDRD (S/P/Bld) [Vol rate/Area] 74 ml/min/1.73sqm Invalid Interpretation Code AO Chemistry S Globulin 3.3 G/dL Invalid Interpretation Code AO ADM SS Glucose [Mass/Vol] 156 mg/dL Invalid Interpretation Code 80 - 115 mg/dL AO ADM SS Lipase [Catalytic activity/Vol] 18 U/L Invalid Interpretation Code 16 - 77 U/L AO ADM SS Potassium [Moles/Vol] 4.4 mmol/L Invalid Interpretation Code 3.5 - 5.1 mmol/L AO ADM SS Protein [Mass/Vol] 6.7 G/dL Invalid Interpretation Code 6.4 - 8.2 G/dL AO ADM SS Sodium [Moles/Vol] 138 mmol/L Invalid Interpretation Code 136 - 145 mmol/L AO ADM SS Urea nitrogen [Mass/Vol] 20 mg/dL Invalid Interpretation Code 7 - 18 mg/dL AO ADM SS Urea nitrogen/Creatinine [Mass ratio] 20 ratio Invalid Interpretation Code 7 - 27 ratio AO ADM SS LABORATORYOrdered By: Renee Mojica on 01-09-2023 Basophil, Absolute 0.0 103/mcL Invalid Interpretation Code 0.0 - 0.2 10^3/mcL AO Workflow SS Basophils/100 WBC (Bld) 0.7 % Invalid Interpretation Code 0.0 - 2.5 % AO Workflow SS Eosinophil, Absolute 0.1 103/mcL Invalid Interpretation Code 0.0 - 0.4 10^3/mcL AO Workflow SS Eosinophils/100 WBC (Bld) 1.6 % Invalid Interpretation Code 0.0 - 7.0 % AO Workflow SS Erythrocyte distribution width (RBC) [Ratio] 13.8 % Invalid Interpretation Code 11.5 - 14.5 % AO Workflow SS Hematocrit (Bld) [Volume fraction] 41.1 % Invalid Interpretation Code 42.0 - 52.0 % AO Workflow SS Hemoglobin (Bld) [Mass/Vol] 14.4 G/dL Invalid Interpretation Code 14.0 - 18.0 G/dL AO Workflow SS Lymphocyte, Absolute 0.8 103/mcL Invalid Interpretation Code 0.8 - 3.9 10^3/mcL AO Workflow SS Lymphocytes/100 WBC (Bld) 12.7 % Invalid Interpretation Code 10.0 - 50.0 % AO Workflow SS MCH (RBC) [Entitic mass] 31.0 pg Invalid Interpretation Code 27.0 - 31.2 pg AO Workflow SS MCHC 34.9 G/dL Invalid Interpretation Code 31.8 - 35.4 G/dL AO Workflow SS MCV (RBC) [Entitic vol] 88.6 fL Invalid Interpretation Code 80.0 - 94.0 fL AO Workflow SS Monocyte distribution width Auto (Bld) [Entitic vol] 16.66 Invalid Interpretation Code 0.00 - 20.00 AO Workflow SS Comment on above: Result Comment: For ED adult patients suspected of sepsis, MDW<=20.0 does not rule out sepsis or risk of sepsis Monocyte, Absolute 0.6 103/mcL Invalid Interpretation Code 0.2 - 1.0 10^3/mcL AO Workflow SS Monocytes/100 WBC (Bld) 9.1 % Invalid Interpretation Code 1.7 - 13.0 % AO Workflow SS Neutrophil, Absolute 4.9 103/mcL Invalid Interpretation Code 2.9 - 6.2 10^3/mcL AO Workflow SS Neutrophils/100 WBC (Bld) 75.9 % Invalid Interpretation Code 37.0 - 80.0 % AO Workflow SS Platelet mean volume (Bld) [Entitic vol] 6.6 fL Invalid Interpretation Code 7.4 - 10.4 fL AO Workflow SS Platelets (Bld) [#/Vol] 284 103/mcL Invalid Interpretation Code 130 - 400 10^3/mcL AO Workflow SS RBC (Bld) [#/Vol] 4.64 106/mcL Invalid Interpretation Code 4.04 - 6.13 10^6/mcL AO Workflow SS WBC (Bld) [#/Vol] 6.5 103/mcL Invalid Interpretation Code 4.6 - 10.8 10^3/mcL AO Workflow SS .Auto Diffon 11-07-2022 Basophil, Absolute 0.0 10 3/mcL Normal 0.0-0.2 [facility] ([place]) Comment on above: Performed By: #### C BC, ADIFF, ANEU, HFP, CMP, GFR #### [address] [address] Basophils/100 WBC (Bld) 0.5 % Normal 0.0-2.5 [facility] ([place]) Comment on above: Performed By: #### C BC, ADIFF, ANEU, HFP, CMP, GFR #### [address] [address] Eosinophil, Absolute 0.1 10 3/mcL Normal 0.0-0.4 [facility] ([place]) Comment on above: Performed By: #### C BC, ADIFF, ANEU, HFP, CMP, GFR #### [address] [address] Eosinophils/100 WBC (Bld) 1.5 % Normal 0.0-7.0 [facility] ([place]) Comment on above: Performed By: #### C BC, ADIFF, ANEU, HFP, CMP, GFR #### [address] [address] Lymphocyte, Absolute 1.0 10 3/mcL Normal 0.8-3.9 [facility] ([place]) Comment on above: Performed By: #### C BC, ADIFF, ANEU, HFP, CMP, GFR #### [address] [address] Lymphocytes/100 WBC (Bld) 17.8 % Normal 10.0-50.0 [facility] ([place]) Comment on above: Performed By: #### C BC, ADIFF, ANEU, HFP, CMP, GFR #### [address] [address] Monocyte, Absolute 0.5 10 3/mcL Normal 0.2-1.0 [facility] ([place]) Comment on above: Performed By: #### C BC, ADIFF, ANEU, HFP, CMP, GFR #### [address] [address] Monocytes/100 WBC (Bld) 7.9 % Normal 1.7-13.0 [facility] ([place]) Comment on above: Performed By: #### C BC, ADIFF, ANEU, HFP, CMP, GFR #### [address] [address] Neutrophils/100 WBC (Bld) 72.3 % Normal 37.0-80.0 [facility] ([place]) Comment on above: Performed By: #### C BC, ADIFF, ANEU, HFP, CMP, GFR #### [address] [address] .GFRon 11-07-2022 GFR 95 ml/min/1.73sqm Normal [facility] ([place]) Comment on above: Result Comment: GFR Population mean for , Non- Americans Ages 20-29 = 116 mL/min/1.73 sq.m. Ages 30-39 = 107 mL/min/1.73 sq.m. Ages 40-49 = 99 mL/min/1.73 sq.m. Ages 50-59 = 93 mL/min/1.73 sq.m. Ages 60-69 = 85 mL/min/1.73 sq.m. Ages 70+ = 75 mL/min/1.73 sq.m. Chronic Kidney Disease: Less than 60 mL/min/1.73 square meters End Stage Renal Disease: Less than 15 mL/min/1.73 square meters Performed By: #### C BC, ADIFF, ANEU, HFP, CMP, GFR #### [address] [address] GFR Non- 78 ml/min/1.73sqm Normal [facility] ([place]) Comment on above: Result Comment: GFR Population mean for , Non- Americans Ages 20-29 = 116 mL/min/1.73 sq.m. Ages 30-39 = 107 mL/min/1.73 sq.m. Ages 40-49 = 99 mL/min/1.73 sq.m. Ages 50-59 = 93 mL/min/1.73 sq.m. Ages 60-69 = 85 mL/min/1.73 sq.m. Ages 70+ = 75 mL/min/1.73 sq.m. Chronic Kidney Disease: Less than 60 mL/min/1.73 square meters End Stage Renal Disease: Less than 15 mL/min/1.73 square meters Performed By: #### C BC, ADIFF, ANEU, HFP, CMP, GFR #### [address] [address] .MDWon 11-07-2022 Monocyte Distribution Width 18.21 Normal 0.00-20.00 [facility] ([place] Comment on above: Result Comment: For ED adult patients suspected of sepsis, MDW<=20.0 does not rule out sepsis or risk of sepsis Performed By: #### C BC, ADIFF, ANEU, HFP, CMP, GFR #### [address] [address] .NEUABSon 11-07-2022 Neutrophil, Absolute 4.2 10 3/mcL Normal 2.9-6.2 [facility] ([place]) Comment on above: Performed By: #### C BC, ADIFF, ANEU, HFP, CMP, GFR #### [place] [address] .Urinalysis Microscopic (AO) on 11-07-2022 UA Bacteria Trace Abnormal [facility] ([place]) Comment on above: Performed By: #### L AC #### [place] [address] UA RBC 10-15 Abnormal None Seen [facility] ([place]) Comment on above: Performed By: #### L AC #### [place] [address] UA Squam Epithelial 5-10 Abnormal None Seen [facility] ([place]) Comment on above: Performed By: #### L AC #### [place] [address] UA WBC 5-10 Abnormal None Seen [facility] ([place]) Comment on above: Performed By: #### L AC #### [place] [address] AMYon 11-07-2022 Amylase [Catalytic activity/Vol] 59 U/L Normal 25-115 [facility] ([place]) Comment on above: Performed By: #### C BC, ADIFF, ANEU, HFP, CMP, GFR #### [place] [address] CBCon 11-07-2022 Erythrocyte distribution width (RBC) [Ratio] 14.4 % Normal 11.5-14.5 [facility] ([place]) Comment on above: Performed By: #### C BC, ADIFF, ANEU, HFP, CMP, GFR #### [place] [address] Hematocrit (Bld) [Volume fraction] 45.7 % Normal 42.0-52.0 [facility] ([place]) Comment on above: Performed By: #### C BC, ADIFF, ANEU, HFP, CMP, GFR #### [place] [address] Hgb 15.9 G/dL Normal 14.0-18.0 [facility] ([place]) Comment on above: Performed By: #### C BC, ADIFF, ANEU, HFP, CMP, GFR #### [place] [address] MCH (RBC) [Entitic mass] 30.9 pg Normal 27.0-31.2 [facility] ([place]) Comment on above: Performed By: #### C BC, ADIFF, ANEU, HFP, CMP, GFR #### [place] [address] MCHC 34.8 G/dL Normal 31.8-35.4 [facility] ([place]) Comment on above: Performed By: #### C BC, ADIFF, ANEU, HFP, CMP, GFR #### [place] [address] MCV (RBC) [Entitic vol] 88.9 fL Normal 80.0-94.0 [facility] ([place]) Comment on above: Performed By: #### C BC, ADIFF, ANEU, HFP, CMP, GFR #### [place] [address] Platelet 232 10 3/mcL Normal 130-400 [facility] ([place]) Comment on above: Performed By: #### C BC, ADIFF, ANEU, HFP, CMP, GFR #### [place] [address] Platelet mean volume (Bld) [Entitic vol] 6.7 fL Low 7.4-10.4 [facility] ([place]) Comment on above: Performed By: #### C BC, ADIFF, ANEU, HFP, CMP, GFR #### [place] [address] RBC 5.14 10 6/mcL Normal 4.04-6.13 [facility] ([place]) Comment on above: Performed By: #### C BC, ADIFF, ANEU, HFP, CMP, GFR #### [place] [address] WBC 5.9 10 3/mcL Normal 4.6-10.8 [facility] ([place]) Comment on above: Performed By: #### C BC, ADIFF, ANEU, HFP, CMP, GFR #### [address] [address] CMPon 11-07-2022 Albumin Level 4.1 G/dL Normal 3.4-4.8 [facility] ([place]) Comment on above: Performed By: #### C BC, ADIFF, ANEU, HFP, CMP, GFR #### [address] [address] Albumin/Globulin [Mass ratio] 1.3 {ratio} Normal 1.1-2.5 [facility] ([place]) Comment on above: Performed By: #### C BC, ADIFF, ANEU, HFP, CMP, GFR #### [address] [address] ALP [Catalytic activity/Vol] 84 U/L Normal 40-135 [facility] ([place]) Comment on above: Performed By: #### C BC, ADIFF, ANEU, HFP, CMP, GFR #### [place] [id number] ALT [Catalytic activity/Vol] 42 U/L Normal 16-63 [facility] ([place]) Comment on above: Performed By: #### C BC, ADIFF, ANEU, HFP, CMP, GFR #### [place] [id number] AST [Catalytic activity/Vol] 25 U/L Normal 10-40 [facility] ([place]) Comment on above: Performed By: #### C BC, ADIFF, ANEU, HFP, CMP, GFR #### [address] [address] Bili Total 1.0 mg/dL Normal 0.2-1.0 [facility] ([place]) Comment on above: Result Comment: Use of this assay is not recommended for patients undergoing treatment with eltrombopag due to the potential for falsely elevated results. Performed By: #### C BC, ADIFF, ANEU, HFP, CMP, GFR #### [place] [id number] BUN/Creatinine Ratio 19 ratio Normal 7-27 [facility] ([place]) Comment on above: Performed By: #### C BC, ADIFF, ANEU, HFP, CMP, GFR #### [address] [address] Calcium [Mass/Vol] 8.5 mg/dL Normal 8.4-10.2 [facility] ([place]) Comment on above: Performed By: #### C BC, ADIFF, ANEU, HFP, CMP, GFR #### [address] [address] Chloride [Moles/Vol] 101 mmol/L Normal 98-107 [facility] ([place]) Comment on above: Performed By: #### C BC, ADIFF, ANEU, HFP, CMP, GFR #### [place] [id number] CO2 [Moles/Vol] 27 mmol/L Normal 23-31 [facility] ([place]) Comment on above: Performed By: #### C BC, ADIFF, ANEU, HFP, CMP, GFR #### [place] [address] Creatinine [Mass/Vol] 0.97 mg/dL Normal 0.70-1.30 [facility] ([place]) Comment on above: Performed By: #### C BC, ADIFF, ANEU, HFP, CMP, GFR #### [address] [address] Electrolyte Balance 9.0 mEq/L Normal 4.0-15.0 [facility] ([place]) Comment on above: Performed By: #### C BC, ADIFF, ANEU, HFP, CMP, GFR #### [address] [address] Globulin 3.2 G/dL Normal [facility] ([place]) Comment on above: Performed By: #### C BC, ADIFF, ANEU, HFP, CMP, GFR #### [place] [id number] Glucose [Mass/Vol] 113 mg/dL Normal 80-115 [facility] ([place]) Comment on above: Performed By: #### C BC, ADIFF, ANEU, HFP, CMP, GFR #### [place] [address] Potassium [Moles/Vol] 4.6 mmol/L Normal 3.5-5.1 [facility] ([place]) Comment on above: Performed By: #### C BC, ADIFF, ANEU, HFP, CMP, GFR #### [place] [id number] Sodium [Moles/Vol] 137 mmol/L Normal 136-145 [facility] ([place]) Comment on above: Performed By: #### C BC, ADIFF, ANEU, HFP, CMP, GFR #### [place] [address] Total Protein 7.3 G/dL Normal 6.4-8.2 [facility] ([place]) Comment on above: Performed By: #### C BC, ADIFF, ANEU, HFP, CMP, GFR #### [place] [address] Urea nitrogen [Mass/Vol] 18 mg/dL Normal 7-18 [facility] ([place]) Comment on above: Performed By: #### C BC, ADIFF, ANEU, HFP, CMP, GFR #### [place] [id number] CRPon 11-07-2022 CRP [Mass/Vol] mg/L Normal 0.0-0.9 [facility] ([place]) Comment on above: Performed By: #### C BC, ADIFF, ANEU, HFP, CMP, GFR #### [place] [address] CT ABD/PELVIS W/ IV CONTRAST ONLYon 11-07-2022 CT ABD/PELVIS W/ IV CONTRAST ONLY ORIGINAL EXAMINATION: CT OF THE ABDOMEN AND PELVIS WITH CONTRAST11/07/2022 4:02 pm TECHNIQUE: CT of the abdomen and pelvis was performed with the administration of intravenous contrast. Multiplanar reformatted images are provided for review. Automated exposure control, iterative reconstruction, and/or weight based adjustment of the mA/kV was utilized to reduce the radiation dose to as low as reasonably achievable. COMPARISON: None HISTORY: ORDERING SYSTEM PROVIDED HISTORY: Reason for Exam: Upper abdominal pain FINDINGS: The liver is unremarkable in size, contour, and attenuation. There is no intra or extrahepatic biliary duct dilation. No focal mass identified. The pancreas, spleen, and bilateral adrenal glands are unremarkable. There is a horseshoe kidney, with a right renal cyst. No hydronephrosis. No urolithiasis. The visualized esophagus, stomach, and duodenum are unremarkable. The visualized aorta is nonaneurysmal. The small bowel exhibits no acute abnormalities. The colon is of normal course and caliber. The appendix is within normal limits. No pathologically enlarged retroperitoneal, mesenteric, or pelvic lymph nodes are identified. There is no free intraperitoneal air or fluid. The urinary bladder is well-distended without wall thickening or focal mass. The prostate contains dystrophic calcifications. No acute soft tissue or osseous abnormality. No suspicious osteolytic or osteoblastic lesions are identified. The spine is mildly degenerative. Provided images of the lower thorax demonstrates a 6 mm nodule at the left lower lobe on series 2, image 3 IMPRESSION: No acute findings in the abdomen or pelvis. 6 mm left lower lobe pulmonary nodule. See below for recommendations. Additional incidental findings as above. I have personally reviewed the images of this examination and agree with the resident's findings and interpretation. RECOMMENDATIONS: 6 mm left solid pulmonary nodule. Recommend a non-contrast Chest CT at 6-12 months. If patient is high risk for malignancy, recommend an additional non-contrast Chest CT at 18-24 months; if patient is low risk for malignancy a non-contrast Chest CT at 18-24 months is optional. These guidelines do not apply to immunocompromised patients and patients with cancer. Follow up in patients with significant comorbidities as clinically warranted. For lung cancer screening, adhere to Lung-RADS guidelines. Reference: Radiology. 2017; 284(1):228-43. Interpreted by: Marry Owens MD Preliminary Report By: Kelsi Rodríguez Electronically signed By Marry Owens MD Dictated Date: 11/07/2022 4:13:24 PM Prelim Date: 11/07/2022 4:20:05 PM Sign Date: 11/07/2022 4:25:50 PM Ordering Provider: KELSI GODOY Normal [facility] ([place]) LIPon 11-07-2022 Lipase Level 15 U/L Low 16-77 [facility] ([place]) Comment on above: Performed By: #### C BC, ADMIKALA, ANEU, HFP, CMP, GFR #### [address] [address] MGon 11-07-2022 Magnesium [Mass/Vol] 2.0 mg/dL Normal 1.8-2.4 [facility] ([place] Comment on above: Performed By: #### C BC, ADIFF, ANEU, HFP, CMP, GFR #### [address] [address] UAon 11-07-2022 Color (U) Yellow Normal [facility] ([place] Comment on above: Performed By: #### L AC #### [address] [address] Glucose (U) [Mass/Vol] Negative Normal Negative [facility] ([place]) Comment on above: Performed By: #### L AC #### [address] [address] Ketones Ql (U) Negative Normal Negative [facility] ([place]) Comment on above: Performed By: #### L AC #### [address] [address] UA Appear Clear Normal Clear [facility] ([place]) Comment on above: Performed By: #### L AC #### [address] [address] UA Blood Moderate Abnormal Negative [facility] ([place]) Comment on above: Performed By: #### L AC #### [address] [address] UA Leuk Est Trace Abnormal Negative [facility] ([place] Comment on above: Performed By: #### L AC #### [address] [address] UA Nitrite Negative Normal Negative [facility] ([place]) Comment on above: Performed By: #### L AC #### [address] [address] UA pH 7.0 Normal 5.0 - 8.0 [facility] ([place]) Comment on above: Performed By: #### L AC #### [address] [address] UA Protein Negative Normal Negative [facility] ([place]) Comment on above: Performed By: #### L AC #### [facility] [address] [place] [address] UA Spec Grav 1.025 Normal 1.015-1.025 [facility] ([place]) Comment on above: Performed By: #### L AC #### [facility] [address] [place] [address] UA Specimen Type Clean Catch Normal [facility] ([place]) Comment on above: Performed By: #### L AC #### [address] [address] UA Urobilinogen 0.2 E.U./dL Normal 0.2-1.0 [facility] ([place]) Comment on above: Performed By: #### L AC #### [address] [address] Urobilinogen (U) [Mass/Vol] Negative Normal Negative [facility] ([place] Comment on above: Performed By: #### L AC #### [address] [address] XR ERCP BILIARY AND PANCREAT IC DUCTon 08-27-2022 XR ERCP BILIARY AND PANCREATIC DUCT ORIGINAL EXAMINATION: 8 SPOT IMAGES FROM AN ERCP COMPARISON: ERCP on 06/01/2022 FLUOROSCOPY DOSE OR TIME/IMAGES: Fluoro time: 51 seconds Radiation dose: 46.55 mGy HISTORY: ORDERING SYSTEM PROVIDED HISTORY: Reason for Exam: pancreatitis FINDINGS: Endoscopy and cannulation of the major papilla was performed by the gastroenterology service. Spot views are presented for interpretation. Biliary stent was removed. Contrast opacification demonstrates normal diameter common bile duct without filling defect. Common hepatic duct and proximal segment of intrahepatic ducts are unremarkable. IMPRESSION: Biliary stent removed. No abnormality seen on retrograde cholangiogram. Interpreted by: Pineda Candelario MD Preliminary Report By: Pineda Candelario MD Electronically signed By Pineda Candelario MD Dictated Date: 08/27/2022 3:44:04 AM Prelim Date: 08/27/2022 3:46:47 AM Sign Date: 08/27/2022 3:46:47 AM Ordering Provider: CORNELIO Sahni [facility] ([place]) INR in Blood by Coagulation assayon 08-18-2022 INR Coag (Bld) [Relative time] 1.0 {INR} [facility] Work Phone: Laboratory - Coagulationon 1 10-19-2021 aPTT Coag (Bld) [Time] 28.5 s 24.1-36.2 [facility] Work Phone: PT Coag (PPP) [Time] 13.3 s 11.7-14.9 [facility] Work Phone: Platelets bldon 08-18-2022 Platelets (Bld) [#/Vol] 255 10*3/uL 150-450 [facility] Work Phone: Absolute lymphocyte counton 06-05-2022 Lymphocytes Auto (Unsp spec) [#/Vol] 2.62 10*3/uL 0.83-4.51 [facility] Work Phone: Basophil percentageon 2021 Basophils/100 WBC (Bld) 0.6 % 0-1 [facility] Work Phone: Bilirubin [Mass/Vol] 0.70 mg/dL 0.20-1.00 [facility] Work Phone: Comment on above: For patients on eltr ombopag therapy, use of Dimension [place] TBIL is not recommended. Chloride [Moles/Vol] 106 mmol/L 98-107 [facility] Work Phone: Eosinophils/100 WBC (Bld) 3.9 % 0-5 [facility] Work Phone: Glucose [Mass/Vol] 140 mg/dL 74-106 [facility] Work Phone: Comment on above: Fasting Glucose resu lt greater than or equal to 126 mg/dL suggests DIABETES MELLITUS per A.D.A. criteria. Lactate [Moles/Vol] 0.8 mmol/L 0.4-2.0 [facility] Work Phone: Neutrophils (Bld) [#/Vol] 4.9 10*3/uL 2.0-7.7 [facility] Work Phone: Neutrophils/100 WBC (Bld) 55.3 % 47-70 [facility] Work Phone: Potassium [Moles/Vol] 4.1 mmol/L 3.5-5.1 [facility] Work Phone: Protein [Mass/Vol] 7.3 g/dL 6.4-8.2 [facility] Work Phone: Sodium [Moles/Vol] 139 mmol/L 136-145 [facility] Work Phone: WBC (Bld) [#/Vol] 8.8 10*3/uL 4.4-11.0 [facility] Work Phone: Blood erythrocytes count (nu mber/volume)on 06-05-2022 RBC (Bld) [#/Vol] 5.11 10*6/uL 4.6-6.2 [facility] Work Phone: Blood hemoglobin measurement (mass/volume)on 06-05-2022 Hemoglobin (Bld) [Mass/Vol] 15.6 g/dL 13.0-16.5 [facility] Work Phone: Blood lymphocytes/100 leukoc yteson 06-05-2022 Lymphocytes/100 WBC (Bld) 29.8 % 19-41 [facility] Work Phone: Blood monocytes/100 leukocyt eson 06-05-2022 Monocytes/100 WBC (Bld) 9.8 % 0-10 [facility] Work Phone: Blood platelet mean volumeon 06-05-2022 Platelet mean volume (Bld) [Entitic vol] 8.7 fL 6.2-12.0 [facility] Work Phone: Determination of erythrocyte mean corpuscular volume (MCV)on 06-05-2022 MCV (RBC) [Entitic vol] 89.6 fL 80-94 [facility] Work Phone: Direct bilirubinon 2 Bilirubin.direct [Mass/Vol] 0.20 mg/dL 0.00-0.30 [facility] Work Phone: Hematocrit Auto (Bld) [Volum e fraction]on 06-05-2022 Hematocrit (Bld) [Volume fraction] 45.8 % 40-54 [facility] Work Phone: Laboratory - Chemistry and C hemistry - challengeon 06-05-2022 ALP [Catalytic activity/Vol] 71 U/L 45-117 [facility] Work Phone: ALT [Catalytic activity/Vol] 36 U/L 16-61 [facility] Work Phone: CO2 [Moles/Vol] 24.0 mmol/L 21.0-32.0 [facility] Work Phone: Globulin (S) [Mass/Vol] 3.9 g/dL 2.2-4.2 [facility] Work Phone: Lipase [Catalytic activity/Vol] 60 U/L 73-393 [facility] Work Phone: Urea nitrogen/Creatinine [Mass ratio] 22.4 mg/mg 10-20 [facility] Work Phone: Laboratory - Hematology and Cell countson 06-05-2022 Erythrocyte distribution width (RBC) [Entitic vol] 45.9 fL 35.1-43.9 [facility] Work Phone: Erythrocyte distribution width (RBC) [Ratio] 13.9 % 11.6-14.6 [facility] Work Phone: Immature granulocytes/100 WBC (Bld) 0.600 % 0.0-0.9 [facility] Work Phone: Comment on above: IG% - Immature Granu locytes (promyelocytes, myelocytes and metamyelocytes) > 1% indicates that a LEFT SHIFT is Present. MCH (RBC) [Entitic mass] 30.5 pg 27.0-32.0 [facility] Work Phone: Nucleated RBC/100 WBC (Bld) [Ratio] 0 % 0-5 [facility] Work Phone: MCHC Auto (RBC) [Mass/Vol]on 06-05-2022 MCHC (RBC) [Mass/Vol] 34.1 g/dL 32-36 [facility] Work Phone: No Panel Informationon 06-05 Estimated Creatinine Clearance Calc 74.86 ml/min [facility] Work Phone: Estimated GFR (MDRD) Amer 90 mL/min >60 [facility] Work Phone: Comment on above: GFR Calc Estimated GFR (MDRD) Non-Af Amer 75 mL/min >60 [facility] Work Phone: Comment on above: Non- GFR Calc Platelets bldon 06-05-2022 Platelets (Bld) [#/Vol] 298 10*3/uL 150-450 [facility] Work Phone: Serum or plasma albumin sammy urement (mass/volume)on 06-05-2022 Albumin [Mass/Vol] 3.4 g/dL 3.2-5.0 [facility] Work Phone: Serum or plasma calcium sammy urement (mass/volume)on 06-05-2022 Calcium [Mass/Vol] 9.0 mg/dL 8.5-10.1 [facility] Work Phone: Serum or plasma creatinine m easurement (mass/volume)on 06-05-2022 Creatinine [Mass/Vol] 1.07 mg/dL 0.70-1.30 [facility] Work Phone: Comment on above: The validity of the calculated GFR & GFRAA in patients over 70 years has not been determined. Clinical correlation is essential. Serum or plasma urea nitroge n measurement (mass/volume)on 06-05-2022 Urea nitrogen [Mass/Vol] 24 mg/dL 7-18 [facility] Work Phone: Thin prep Papanicolaou smear with manual screeningon 06-05-2022 Thin prep Papanicolaou smear with manual screening 15 U/L 15-37 [facility] Work Phone: Thin prep Papanicolaou smear with manual screening 9 5-15 [facility] Work Phone: XR ERCP BILIARY AND PANCREAT IC DUCTon 06-02-2022 XR ERCP BILIARY AND PANCREATIC DUCT ORIGINAL EXAMINATION: SPOT IMAGES FROM AN ERCP06/01/2022 10:00 am ERCP COMPARISON: None Technical Details: 58.75 mGy. 66.8 seconds. 6 images HISTORY: ORDERING SYSTEM PROVIDED HISTORY: Reason for Exam: bile leak FINDINGS: Fluoroscopic spot images were provided for interpretation. They demonstrate removal of a biliary stent. There is retrograde opacification and instrumentation of the biliary system. A biliary stent was replaced. Contrast is seen in the region of the cystic duct and right upper quadrant.. Detail is limited. Please see the operative note for details. IMPRESSION: Documentation of fluoroscopy. Interpreted by: Christelle Casillas MD Preliminary Report By: Christelle Casillas MD Electronically signed By Christelle Casillas MD Dictated Date: 06/02/2022 8:54:08 PM Prelim Date: 06/02/2022 8:55:45 PM Sign Date: 06/02/2022 8:55:45 PM Ordering Provider: CORNELIO Sahni [facility] ([place] CNOVon 05-25-2022 CNOV Office Visit (GENSWS ) -------- GUSTAVO CERDA ([id number]) 1960 M Date Time Provider Department 05/25/22 2:45 PM KOLE MANCIA During your visit today, we recorded the following information about you: Temperature Pulse Blood pressure Weight 98.1 degrees 75/minute 128/66 159.7 kg Height 1.753 m Kole Mancia III, MD 05/25/2022 3:27 PM Signed Subjective: Patient is status post cholecystectomy back in February by Dr. Alex patient's postoperative course was complicated by needing to ERCPs he has had his drain and ever since then. It has drained very little and Dr. Alex believes that it can be removed and has had conversations with the physician who performed the ERCP and they are in agreement. Objective:Blood pressure 138/72, pulse 84, temperature 36.4 ?C (97.5 ?F), height 177.8 cm (5' 10), weight 79.4 kg (175 lb), SpO2 98 %. Right upper quadrant KENNETH drain was removed without difficulty and in its entirety. Sterile dressings were applied and the patient tolerated the procedure well. Patient sutured already come out and there was nothing to cut. Subjective: Aftercare Plan: Patient can follow back up with Dr. 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 Referring Provider: RENETTA ALEX [[id number]] Allergies As of Date: 05/25/2022 (No Known Allergies) Date Reviewed: 05/19/2022 Reviewed by: Nel Emerson, RT(R) - Fully Assessed Reason for Visit: Follow Up [171] Cmt: Drain, removal Primary Visit Diagnosis:Aftercare [Z51.89] Other Visit Diagnosis:Abnormal biliary HIDA scan [R94.8] Order(s):CONSULT TO GENERAL SURGERY [9011] Order #: [id number]: 1 Prescriptions as of 05/25/2022 - lisinopril (ZESTRIL, PRINIVIL) 20 mg tablet Take 20 mg by mouth once daily. - amLODIPine (NORVASC) 10 mg tablet Take 10 mg by mouth once daily. - acetaminophen (TYLENOL ORAL) Take by mouth as needed. Problem List As Of Date: 05/25/2022 (None) Encounter Status:Closed by KOLE MANCIA on 05/25/22 [facility] Tae 05-25-2022 [facility] Telephone ([employer]) -------- GUSTAVO CERDA ([id number]) 1960 M Date Time Provider Department 9/13/22 RENETTA ALEX During your visit today, we recorded the following information about you: Jeannie Marquez RN 05/25/2022 12:53 PM Signed Gustavo called to report the stitch holding his drain came loose. He thinks the drain is coming out a bit. He stated there is red in the drain tubing. Dr. Mnacia agreed to see the patient today 05/25 at 2:45 p.m. Allergies As of Date: 05/25/2022 (No Known Allergies) Date Reviewed: 05/19/2022 Reviewed by: Nel Emerson, RT(R) - Fully Assessed Reason for Visit: Patient Question [4837] Prescriptions as of 05/31/2022 - lisinopril (ZESTRIL, PRINIVIL) 20 mg tablet Take 20 mg by mouth once daily. - amLODIPine (NORVASC) 10 mg tablet Take 10 mg by mouth once daily. - acetaminophen (TYLENOL ORAL) Take by mouth as needed. Problem List As Of Date: 05/25/2022 (None) Encounter Status:Closed by JEANNIE MARQUEZ on 05/31/22 [facility] 05-24-2022 CNPN Telephone ([employer]) -------- GUSTAVO CERDA ([id number]) 1960 M Date Time Provider Department 05/24/22 RENETTA ALEX During your visit today, we recorded the following information about you: Renetta Alex MD 05/24/2022 7:54 PM Signed Patient denies abdominal pain He had a recent CT scan, with minimal fluid and pneumobilia due to stent Will contact patient's textile pin worker for discussion of removal of catheter. Will contact patient after above. Allergies As of Date: 05/24/2022 (No Known Allergies) Date Reviewed: 05/19/2022 Reviewed by: Nel Emerson, RT(R) - Fully Assessed Reason for Visit: Patient Update [1234] Prescriptions as of 05/24/2022 - lisinopril (ZESTRIL, PRINIVIL) 20 mg tablet Take 20 mg by mouth once daily. - amLODIPine (NORVASC) 10 mg tablet Take 10 mg by mouth once daily. - acetaminophen (TYLENOL ORAL) Take by mouth as needed. Problem List As Of Date: 05/24/2022 (None) Encounter Status:Closed by RENETTA ALEX on 05/24/[address] [facility] [address] ABDOMEN W IVCONon 022 CT ABDOMEN W IVCON * * *Final Report* * * DATE OF EXAM: May 20 2022 9:11AM [facility] 0533 - CT ABDOMEN W IVCON / PROCEDURE REASON: abd * * * * Physician Interpretation * * * * EXAMINATION: CT ABDOMEN WITH IV CONTRAST CLINICAL HISTORY: Abdominal pain. Cholecystectomy. Right upper quadrant drain TECHNIQUE: CT of the abdomen was performed using standard technique, scanning from just above the dome of the diaphragm to the iliac crest. MQ: [id number] Contrast: IV: 100 ml of Omnipaque 350 : ml of CT Radiation dose: Integrated Dose-length product (DLP) for this visit = 1040 mGy*cm. CT Dose Reduction Employed: Automated exposure control(AEC) and iterative recon COMPARISON: Intraoperative ERCP images from 04/01/2022 RESULT: Liver: No mass. Biliary: No bile duct dilation. Surgical drain at the cholecystectomy site. Small amount of air and fluid in this region. No organized collection. Internal biliary drain is also seen which terminates in the duodenum. Pneumobilia is present. Spleen: No mass. No splenomegaly. Pancreas: No mass or duct dilation. Adrenals:No mass. Kidneys: Right renal cyst. Horseshoe kidney formation. No gross obstructive uropathy or suspicious renal lesion GI tract: No dilation or wall thickening. The appendix appears normal Lymph nodes: No abdominal lymphadenopathy. Mesentery/Peritoneum: No ascites or mass. Retroperitoneum: No mass. Vasculature: The aorta is normal in caliber Bones/Soft Tissues: Degenerative changes. Lower thorax: Unremarkable. Needle Setter (topogram) images: No additional findings. IMPRESSION: Internal biliary drainage catheter in place. External catheter terminates in the gallbladder fossa. Small amount of air and fluid in this region as well as pneumobilia. No discrete collection to suggest abscess at this time. Incidental horseshoe kidney Ceo Na: DEMARCO Transcribe Date/Time: May 20 2022 11:59A Dictated by : PROSPER GARCIA MD This examination was interpreted and the report reviewed and electronically signed by: PROSPER GARCIA MD on May 20 2022 12:11PM EST [id number] Normal [facility] Absolute lymphocyte counton 05-07-2022 Lymphocytes Auto (Unsp spec) [#/Vol] 2.28 10*3/uL 0.83-4.51 [facility] Work Phone: Basophil percentageon 2021 Amylase [Catalytic activity/Vol] 55 U/L 25-115 [facility] Work Phone: Basophils/100 WBC (Bld) 0.5 % 0-1 [facility] Work Phone: Bilirubin [Mass/Vol] 1.40 mg/dL 0.20-1.00 [facility] Work Phone: Comment on above: For patients on eltr ombopag therapy, use of Dimension [place] TBIL is not recommended. Chloride [Moles/Vol] 105 mmol/L 98-107 [facility] Work Phone: Eosinophils/100 WBC (Bld) 3.3 % 0-5 [facility] Work Phone: Glucose [Mass/Vol] 167 mg/dL 74-106 [facility] Work Phone: Comment on above: Fasting Glucose resu lt greater than or equal to 126 mg/dL suggests DIABETES MELLITUS per A.D.A. criteria. Neutrophils (Bld) [#/Vol] 3.0 10*3/uL 2.0-7.7 [facility] Work Phone: Neutrophils/100 WBC (Bld) 49.3 % 47-70 [facility] Work Phone: Potassium [Moles/Vol] 4.1 mmol/L 3.5-5.1 [facility] Work Phone: Protein [Mass/Vol] 6.9 g/dL 6.4-8.2 [facility] Work Phone: Sodium [Moles/Vol] 137 mmol/L 136-145 [facility] Work Phone: WBC (Bld) [#/Vol] 6.0 10*3/uL 4.4-11.0 [facility] Work Phone: Blood erythrocytes count (nu mber/volume)on 05-07-2022 RBC (Bld) [#/Vol] 4.62 10*6/uL 4.6-6.2 [facility] Work Phone: Blood hemoglobin measurement (mass/volume)on 05-07-2022 Hemoglobin (Bld) [Mass/Vol] 14.4 g/dL 13.0-16.5 [facility] Work Phone: Blood lymphocytes/100 leukoc yteson 05-07-2022 Lymphocytes/100 WBC (Bld) 37.7 % 19-41 [facility] Work Phone: Blood monocytes/100 leukocyt eson 05-07-2022 Monocytes/100 WBC (Bld) 8.9 % 0-10 [facility] Work Phone: Blood platelet mean volumeon 05-07-2022 Platelet mean volume (Bld) [Entitic vol] 8.5 fL 6.2-12.0 [facility] Work Phone: Determination of erythrocyte mean corpuscular volume (MCV)on 05-07-2022 MCV (RBC) [Entitic vol] 89.2 fL 80-94 [facility] Work Phone: Hematocrit Auto (Bld) [Volum e fraction]on 05-07-2022 Hematocrit (Bld) [Volume fraction] 41.2 % 40-54 [facility] Work Phone: Laboratory - Chemistry and C hemistry - challengeon 05-07-2022 ALP [Catalytic activity/Vol] 76 U/L 45-117 [facility] Work Phone: ALT [Catalytic activity/Vol] 26 U/L 16-61 [facility] Work Phone: CO2 [Moles/Vol] 28.0 mmol/L 21.0-32.0 [facility] Work Phone: Globulin (S) [Mass/Vol] 3.7 g/dL 2.2-4.2 [facility] Work Phone: Lipase [Catalytic activity/Vol] 67 U/L 73-393 [facility] Work Phone: Urea nitrogen/Creatinine [Mass ratio] 16.2 mg/mg 10-20 [facility] Work Phone: Laboratory - Hematology and Cell countson 05-07-2022 Erythrocyte distribution width (RBC) [Entitic vol] 47.6 fL 35.1-43.9 [facility] Work Phone: Erythrocyte distribution width (RBC) [Ratio] 14.6 % 11.6-14.6 [facility] Work Phone: Immature granulocytes/100 WBC (Bld) 0.300 % 0.0-0.9 [facility] Work Phone: Comment on above: IG% - Immature Granu locytes (promyelocytes, myelocytes and metamyelocytes) > 1% indicates that a LEFT SHIFT is Present. MCH (RBC) [Entitic mass] 31.2 pg 27.0-32.0 [facility] Work Phone: Nucleated RBC/100 WBC (Bld) [Ratio] 0 % 0-5 [facility] Work Phone: MCHC Auto (RBC) [Mass/Vol]on 05-07-2022 MCHC (RBC) [Mass/Vol] 35.0 g/dL 32-36 [facility] Work Phone: No Panel Informationon 05-07 Estimated GFR (MDRD) Amer 107 mL/min >60 [facility] Work Phone: Comment on above: GFR Calc Estimated GFR (MDRD) Non-Af Amer 88 mL/min >60 [facility] Work Phone: Comment on above: Non- GFR Calc Platelets bldon 05-07-2022 Platelets (Bld) [#/Vol] 247 10*3/uL 150-450 [facility] Work Phone: Serum or plasma albumin sammy urement (mass/volume)on 05-07-2022 Albumin [Mass/Vol] 3.2 g/dL 3.2-5.0 [facility] Work Phone: Serum or plasma albumin/glob ulin mass ratioon 05-07-2022 Albumin/Globulin [Mass ratio] 0.9 {ratio} 0.9-2.4 [facility] Work Phone: Serum or plasma calcium sammy urement (mass/volume)on 05-07-2022 Calcium [Mass/Vol] 8.6 mg/dL 8.5-10.1 [facility] Work Phone: Serum or plasma creatinine m easurement (mass/volume)on 05-07-2022 Creatinine [Mass/Vol] 0.93 mg/dL 0.70-1.30 [facility] Work Phone: Comment on above: The validity of the calculated GFR & GFRAA in patients over 70 years has not been determined. Clinical correlation is essential. Serum or plasma urea nitroge n measurement (mass/volume)on 05-07-2022 Urea nitrogen [Mass/Vol] 15 mg/dL 7-18 [facility] Work Phone: Thin prep Papanicolaou smear with manual screeningon 05-07-2022 Thin prep Papanicolaou smear with manual screening 13 U/L 15-37 [facility] Work Phone: Thin prep Papanicolaou smear with manual screening 4 5-15 [facility] Work Phone: CNPJovana 05-03-2022 [facility]NPN [facility] -------- GUSTAVO CERDA ([id number]) 1960 M Date Time Provider Department 05/03/22 RENETTA ALEX During your visit today, we recorded the following information about you: Renetta Alex MD 05/03/2022 10:20 AM Signed Patient denies fevers. Has abdominal pain occasionally at drain site and RUQ, but improving. Drainage output is about 30 ml per day according to patient. Will await another week and then hopefully can d/c drain next week. Patient acknowledges above. Allergies As of Date: 05/03/2022 (No Known Allergies) Date Reviewed: 03/22/2022 Reviewed by: Kenzie Echols LPN - Fully Assessed Reason for Visit: Patient Update [1234] Prescriptions as of 05/03/2022 - lisinopril (ZESTRIL, PRINIVIL) 20 mg tablet Take 20 mg by mouth once daily. - amLODIPine (NORVASC) 10 mg tablet Take 10 mg by mouth once daily. - acetaminophen (TYLENOL ORAL) Take by mouth as needed. Problem List As Of Date: 05/03/2022 (None) Encounter Status:Closed [facility]LEX [facility]03[facility] ([employer]) -------- GUSTAVO CERDA ([id number]) 1960 M Date Time Provider Department 04/28/22 RENETTA ALEX During your visit today, we recorded the following information about you: Renetta Alex MD 04/28/2022 5:04 PM Signed Checking on patient He states that about 40 ml/day He is scheduled for removal of CBD drainage tube later this month. I will contact him next week to check status. Allergies As of Date: 04/28/2022 (No Known Allergies) Date Reviewed: 03/22/2022 Reviewed by: Kenzie Echols LPN - Fully Assessed Reason for Visit: Patient Update [1234] Prescriptions as of 04/28/2022 - lisinopril (ZESTRIL, PRINIVIL) 20 mg tablet Take 20 mg by mouth once daily. - amLODIPine (NORVASC) 10 mg tablet Take 10 mg by mouth once daily. - acetaminophen (TYLENOL ORAL) Take by mouth as needed. Problem List As Of Date: 04/28/2022 (None) Encounter Status:Closed by RENETTA ALEX on 04/28/22 [facility] Telephone ([facility] [facility]) -------- ZAIDAGUSTAVO ([id number]) 1960 M Date Time Provider Department 04/19/22 [facility]LEX [facility] During your visit today, we recorded the following information about you: Renetta Alex MD 04/19/2022 12:17 PM Signed Gustavo is status post open cholecystectomy done on 02/18/2022 for acute and chronic hemorrhagic and ulcerated cholecystitis and cholelithiasis He subsequently had a controlled bile drainage leak via drain placed intraoperatively. He then underwent ERCP on March 12, but developed post-ERCP pancreatitis requiring hospital admission. He was discharged on 03/18/2022. He underwent ERCP on 04/01/2022 with findings of multiple CBD stones by Dr. Weaver who told patient that he should wait 2-3 weeks before removing drain. I spoke to patient today - to check on his status. He denies abdominal pain. He denies fevers. He states that his output is now about 50 ml/day. Will continue observation for another week. Patient acknowledges above. Allergies As of Date: 04/19/2022 (No Known Allergies) Date Reviewed: 03/22/2022 Reviewed by: Kenzie Echols LPN - Fully Assessed Reason for Visit: Patient Update [1234] Prescriptions as of 04/19/2022 - lisinopril (ZESTRIL, PRINIVIL) 20 mg tablet Take 20 mg by mouth once daily. - amLODIPine (NORVASC) 10 mg tablet Take 10 mg by mouth once daily. - acetaminophen (TYLENOL ORAL) Take by mouth as needed. Problem List As Of Date: 04/19/2022 (None) Encounter Status:Closed by RENETTA LAEX on 04/19/22 [facility] Tae 04-12-2022 MICHELLEN Telephone ([facility]) -------- GUSTAVO CERDA ([id number]) 1960 M Date Time Provider Department 04/12/22 RENETTA ALEX During your visit today, we recorded the following information about you: Renetta Alex MD 04/12/2022 10:51 AM Signed Spoke to patient to check on his status. He states that about 100 cc/day is still emanating from the catheter. He denies fevers. He denies abdominal pain. Will continue observation Allergies As of Date: 04/12/2022 (No Known Allergies) Date Reviewed: 03/22/2022 Reviewed by: Kenzie Echols LPN - Fully Assessed Reason for Visit: Patient Update [1234] Prescriptions as of 04/12/2022 - lisinopril (ZESTRIL, PRINIVIL) 20 mg tablet Take 20 mg by mouth once daily. - amLODIPine (NORVASC) 10 mg tablet Take 10 mg by mouth once daily. - acetaminophen (TYLENOL ORAL) Take by mouth as needed. Problem List As Of Date: 04/12/2022 (None) Encounter Status:Closed by RENETTA ALEX on 04/12/22 [facility] 04-05-2022 [facility] Telephone (GENSWS) -------- GUSTAVO CERDA ([id number]) 1960 M Date Time Provider Department 04/05/22 RENETTA ALEX During your visit today, we recorded the following information about you: Renetta Alex MD 04/05/2022 11:10 AM Signed Patient notes intermittent pain with drain in place. Notes output is still full over a 24 hour period. Will check on patient on Tuesday. Patient can shower, avoid getting drain overlying wet - cover with towel. Patient acknowledges above. Allergies As of Date: 04/05/2022 (No Known Allergies) Date Reviewed: 03/22/2022 Reviewed by: Kenzie Echols LPN - Fully Assessed Reason for Visit: Patient Update [1234] Prescriptions as of 04/05/2022 - lisinopril (ZESTRIL, PRINIVIL) 20 mg tablet Take 20 mg by mouth once daily. - amLODIPine (NORVASC) 10 mg tablet Take 10 mg by mouth once daily. - acetaminophen (TYLENOL ORAL) Take by mouth as needed. Problem List As Of Date: 04/05/2022 (None) Encounter Status:Closed by RENETTA ALEX on 04/05/22 [facility] 04-02-2022 [facility] Telephone ([facility]) -------- GUSTAVO CERDA ([id number]) 1960 Arya Date Time Provider Department 04/02/22 RENETTA ALEX WS[facility]OV During your visit today, we recorded the following information about you: Renetta Alex MD 04/02/2022 12:05 PM Signed Talked to patient, he has some intermittent abdominal pain, but not severe. He is s/p ERCP yesterday and was found to have multiple CBD stones, stent was placed. Paperwork from that procedure not in Epic. 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 Patient states that he had no output yesterday, but today, he noted about 1/3 of drain was full. I told patient that I will call him on a weekly basis to check up with him. Will monitor his KENNETH output and when ready to be discontinued, I will call patient to come into the office. With regard to patient's return to work, he states that his work is dirty and he is worried about infection. I told him that as long as he is covered with clothing, that it should not be a problem, but if he wants a work excuse, I will write one for him. He will think about this over the weekend. Patient acknowledges above. Allergies As of Date: 04/02/2022 (No Known Allergies) Date Reviewed: 03/22/2022 Reviewed by: Kenzie Echols LPN - Fully Assessed Reason for Visit: Patient Update [1234] Prescriptions as of 04/02/2022 - lisinopril (ZESTRIL, PRINIVIL) 20 mg tablet Take 20 mg by mouth once daily. - amLODIPine (NORVASC) 10 mg tablet Take 10 mg by mouth once daily. - acetaminophen (TYLENOL ORAL) Take by mouth as needed. Problem List As Of Date: 04/02/2022 (None) Encounter Status:Closed by RENETTA ALEX on 04/02/22 [facility] Telephone (SputnikBot) -------- GUSTAVO CERDA ([id number]) 1960 M Date Time Provider Department 04/02/22 RENETTA ALEX During your visit today, we recorded the following information about you: Kenzie Echols LPN 04/02/2022 11:09 AM Signed Patient's Keisha called, patient had ERCP done 04/01/22 at [facility], Patient has complaint of mid-upper abdomen pain since procedure last less then 1 minute, pain scale 3-4, had it twice and woke him out of a sleep. States also had same pain once prior to the procedure yesterday. Fax a request to [facility] for ERCP records to be faxed and images pushed. Patient asking also about drain removal from abdomen. Please advise. Allergies As of Date: 04/02/2022 (No Known Allergies) Date Reviewed: 03/22/2022 Reviewed by: Kenzie Echols LPN - Fully Assessed Reason for Visit: Patient Question [7390] Cmt: pain in mid abd Prescriptions as of 04/07/2022 - lisinopril (ZESTRIL, PRINIVIL) 20 mg tablet Take 20 mg by mouth once daily. - amLODIPine (NORVASC) 10 mg tablet Take 10 mg by mouth once daily. - acetaminophen (TYLENOL ORAL) Take by mouth as needed. Problem List As Of Date: 04/02/2022 (None) Encounter Status:Closed by KENZIE ECHOLS on 04/07/22 [facility] LABORATORYOrdered By: Margo Kline on 04-01-2022 aPTT Coag (PPP) [Time] 29.2 s Invalid Interpretation Code 25.0 - 35.0 seconds AH Auto Coag SS Fibrinogen Coag (PPP) [Mass/Vol] 612 mg/dL Invalid Interpretation Code 250 - 560 mg/dL AH Auto Coag SS Heparin dose (APTT) Unknown (04/01/22 6:36 AM) Invalid Interpretation Code AH Auto Coag SS INR Coag (PPP) [Relative time] 0.9 {INR} Invalid Interpretation Code AH Auto Coag SS PT Coag (PPP) [Time] 11.2 s Invalid Interpretation Code 9.0 - 14.9 seconds AH Auto Coag SS LABORATORYOrdered By: SYSTEM SYSTEM on 04-01-2022 Platelets (Bld) [#/Vol] 390 103/mcL Invalid Interpretation Code 150 - 450 10^3/mcL AH Workflow SS Potassium [Moles/Vol] 4.6 mmol/L Invalid Interpretation Code 3.5 - 5.0 mEq/L AH ADM SS Comment on above: Result Comment: Spec imen slightly hemolyzed. LABORATORYOrdered By: Jose Juan Yana ferrera on 03-31-2022 aPTT Coag (PPP) [Time] 29.9 s Invalid Interpretation Code 25.0 - 35.0 seconds AH Auto Coag SS Heparin dose (APTT) Unknown (03/31/22 2:24 PM) Invalid Interpretation Code AH Auto Coag SS INR Coag (PPP) [Relative time] 1.0 {INR} Invalid Interpretation Code AH Auto Coag SS PT Coag (PPP) [Time] 11.3 s Invalid Interpretation Code 9.0 - 14.9 seconds AH Auto Coag SS LABORATORYOrdered By: SYSTEM SYSTEM on 03-31-2022 Basophils (Bld) [#/Vol] 0.2 103/mcL Invalid Interpretation Code 0.0 - 0.3 10^3/mcL Workflow SS Basophils/100 WBC (Bld) 2.4 % Invalid Interpretation Code 0.0 - 2.5 % Workflow SS Calcium [Mass/Vol] 9.6 mg/dL Invalid Interpretation Code 8.7 - 10.4 mg/dL ADM SS Chloride [Moles/Vol] 104 mmol/L Invalid Interpretation Code 98 - 110 mEq/L ADM SS CO2 [Moles/Vol] 29 mmol/L Invalid Interpretation Code 22 - 32 mEq/L ADM SS Creatinine [Mass/Vol] 0.83 mg/dL Invalid Interpretation Code 0.60 - 1.40 mg/dL ADM SS Electrolyte Balance 6.0 mEq/L Invalid Interpretation Code 4.0 - 15.0 mEq/L ADM SS Eosinophils (Bld) [#/Vol] 0.3 103/mcL Invalid Interpretation Code 0.0 - 0.7 10^3/mcL AH Workflow SS Eosinophils/100 WBC (Bld) 5.4 % Invalid Interpretation Code 0.0 - 6.0 % Workflow SS Erythrocyte distribution width (RBC) [Ratio] 14.4 % Invalid Interpretation Code 11.5 - 15.5 % AH Workflow SS GFR/1.73 sq M.predicted among blacks MDRD (S/P/Bld) [Vol rate/Area] ml/min/1.73sqm Invalid Interpretation Code Chemistry S GFR/1.73 sq M.predicted among non-blacks MDRD (S/P/Bld) [Vol rate/Area] ml/min/1.73sqm Invalid Interpretation Code Chemistry S Glucose [Mass/Vol] 83 mg/dL Invalid Interpretation Code 82 - 115 mg/dL ADM SS Hematocrit (Bld) [Volume fraction] 41.5 % Invalid Interpretation Code 40.0 - 52.0 % AH Workflow SS Hemoglobin (Bld) [Mass/Vol] 14.3 G/dL Invalid Interpretation Code 13.0 - 17.5 G/dL AH Workflow SS Lymphocytes (Bld) [#/Vol] 2.2 103/mcL Invalid Interpretation Code 0.9 - 4.3 10^3/mcL Workflow SS Lymphocytes/100 WBC (Bld) 35.5 % Invalid Interpretation Code 20.0 - 40.0 % AH Workflow SS MCH (RBC) [Entitic mass] 30.7 pg Invalid Interpretation Code 27.0 - 33.0 pg AH Workflow SS MCHC 34.5 G/dL Invalid Interpretation Code 32.0 - 36.0 G/dL AH Workflow SS MCV (RBC) [Entitic vol] 88.9 fL Invalid Interpretation Code 81.0 - 100.0 fL Workflow SS Monocyte distribution width Auto (Bld) [Entitic vol] Not Performed 1 *NA* (03/31/22 2:24 PM) Invalid Interpretation Code 0.00 - 20.00 Hematology S Comment on above: Result Comment: MDW testing performed only on adult ER patients between the ages of 18-89 years. Monocytes (Bld) [#/Vol] 0.6 103/mcL Invalid Interpretation Code 0.1 - 1.4 10^3/mcL AH Workflow SS Monocytes/100 WBC (Bld) 10.0 % Invalid Interpretation Code 2.0 - 13.0 % Workflow SS Neutrophils (Bld) [#/Vol] 3.0 103/mcL Invalid Interpretation Code 2.3 - 8.1 10^3/mcL AH Workflow SS Neutrophils/100 WBC (Bld) 46.7 % Invalid Interpretation Code 50.0 - 75.0 % AH Workflow SS Platelet mean volume (Bld) [Entitic vol] 5.8 fL Invalid Interpretation Code 6.4 - 10.5 fL AH Workflow SS Platelets (Bld) [#/Vol] 432 103/mcL Invalid Interpretation Code 150 - 450 10^3/mcL AH Workflow SS Potassium [Moles/Vol] 5.2 mmol/L Invalid Interpretation Code 3.5 - 5.0 mEq/L AH ADM SS RBC (Bld) [#/Vol] 4.68 106/mcL Invalid Interpretation Code 4.50 - 6.00 10^6/mcL AH Workflow SS Sodium [Moles/Vol] 139 mmol/L Invalid Interpretation Code 136 - 145 mEq/L AH ADM SS Urea nitrogen [Mass/Vol] 15.0 mg/dL Invalid Interpretation Code 8.0 - 22.0 mg/dL AH ADM SS Urea nitrogen/Creatinine [Mass ratio] 18.1 ratio Invalid Interpretation Code 10.0 - 22.0 ratio AH ADM SS WBC 6.3 103/mcL Invalid Interpretation Code 4.5 - 10.8 10^3/mcL AH Workflow SS CNPJovana 03-29-2022 [facility] Telephone (GENSWS) -------- GUSTAVO CERDA ([id number]) 1960 M Date Time Provider Department 03/29/22 RENETTA ALEX During your visit today, we recorded the following information about you: Renetta Alex MD 03/29/2022 9:09 AM Signed Spoke to patient. He still has increased output via bile drain. He will require another ERCP with covered stent. I will place calls for referral I have explained the above to the patient. He acknowledges above. Allergies As of Date: 03/29/2022 (No Known Allergies) Date Reviewed: 03/22/2022 Reviewed by: Kenzie Echols LPN - Fully Assessed Reason for Visit: Schedule Evaluation [6686] Prescriptions as of 03/29/2022 - lisinopril (ZESTRIL, PRINIVIL) 20 mg tablet Take 20 mg by mouth once daily. - amLODIPine (NORVASC) 10 mg tablet Take 10 mg by mouth once daily. - acetaminophen (TYLENOL ORAL) Take by mouth as needed. Problem List As Of Date: 03/29/2022 (None) Encounter Status:Closed by RENETTA ALEX on 03/29/22 [facility] Telephone (GENSWS) -------- GUSTAVO CERDA ([id number]) 1960 M Date Time Provider Department 03/29/22 RENETTA ALEX During your visit today, we recorded the following information about you: Yong Land RN 03/29/2022 10:17 AM Signed Renetta Alex MD [facility] General Surgery Pool Please fax a referral to the following number: ?[facility] Request for ERCP with covered stent attention Cielo Need: demographics sheet Report of ERCP, operative report, CT scan, labs, HANDP from [facility]. Thank you Above medical records faxed to [facility], Attn: Cielo at [phone]. Fax conformation sheet received. Yong Land RN December03/31/2022 10:[address] Weaver office called office to inform us that patient is scheduled for ERCP tomorrow at [place]. Yong Land RN 03/31/2022 4:[address] Alex-Fercho CARBALLO. Yong Land RN Allergies As of Date: 03/29/2022 (No Known Allergies) Date Reviewed: 03/22/2022 Reviewed by: Kenzie Echols LPN - Fully Assessed Reason for Visit: Referral Request [124] Cmt: [facility] Prescriptions as of 03/31/2022 - lisinopril (ZESTRIL, PRINIVIL) 20 mg tablet Take 20 mg by mouth once daily. - amLODIPine (NORVASC) 10 mg tablet Take 10 mg by mouth once daily. - acetaminophen (TYLENOL ORAL) Take by mouth as needed. Problem List As Of Date: 03/29/2022 (None) Encounter Status:Closed by YONG LAND on 03/29/22 [facility] Basophil percentageon 2021 Chloride [Moles/Vol] 100 mmol/L 98-107 [facility] Work Phone: Glucose [Mass/Vol] 132 mg/dL 74-106 [facility] Work Phone: Comment on above: Fasting Glucose resu lt greater than or equal to 126 mg/dL suggests DIABETES MELLITUS per A.D.A. criteria. Potassium [Moles/Vol] 4.4 mmol/L 3.5-5.1 [facility] Work Phone: Sodium [Moles/Vol] 133 mmol/L 136-145 [facility] Work Phone: Bilirubin Test strip Ql (U)o n 03-24-2022 Bilirubin Ql (U) Negative Negative [facility] Work Phone: Ketones Test strip Ql (U)on 03-24-2022 Ketones Ql (U) Negative Negative [facility] Work Phone: Laboratory - Chemistry and C hemistry - challengeon 03-24-2022 CO2 [Moles/Vol] 28.0 mmol/L 21.0-32.0 [facility] Work Phone: Urea nitrogen/Creatinine [Mass ratio] 18.1 mg/mg 10-20 [facility] Work Phone: Nitrite Test strip Ql (U)on 03-24-2022 Nitrite Ql (U) Negative Negative [facility] Work Phone: No Panel Informationon 03-24 Estimated GFR (MDRD) Amer 143 mL/min >60 [facility] Work Phone: Comment on above: GFR Calc Estimated GFR (MDRD) Non-Af Amer 118 mL/min >60 [facility] Work Phone: Comment on above: Non- GFR Calc Protein Test strip Ql (U)on 03-24-2022 Protein Ql (U) Negative Negative [facility] Work Phone: Serum or plasma calcium sammy urement (mass/volume)on 03-24-2022 Calcium [Mass/Vol] 9.3 mg/dL 8.5-10.1 [facility] Work Phone: Serum or plasma creatinine m easurement (mass/volume)on 03-24-2022 Creatinine [Mass/Vol] 0.72 mg/dL 0.70-1.30 [facility] Work Phone: Comment on above: The validity of the calculated GFR & GFRAA in patients over 70 years has not been determined. Clinical correlation is essential. Serum or plasma urea nitroge n measurement (mass/volume)on 03-24-2022 Urea nitrogen [Mass/Vol] 13 mg/dL 7-18 [facility] Work Phone: Thin prep Papanicolaou smear with manual screeningon 03-24-2022 Thin prep Papanicolaou smear with manual screening 5 5-15 [facility] Work Phone: Urine blood detectionon 03-12 RBC Ql (U) 50 /ul Negative [facility] Work Phone: Urine clarityon 03-24-2022 Clarity (U) Clear Clear [facility] Work Phone: Urine color determinationon 03-24-2022 Color (U) Yellow Yellow [facility] Work Phone: Urine glucose detectionon Glucose Ql (U) Normal mg/dl Normal [facility] Work Phone: Urine leukocyte esterase det ection by dipstickon 03-24-2022 Leukocyte esterase Test strip Ql (U) 25 /ul Negative [facility] Work Phone: Urine pHon 03-24-2022 pH (U) 8.0 [pH] 5.0 - 8.0 [facility] Work Phone: Urine specific gravity measu rementon 03-24-2022 Specific gravity (U) [Rel density] 1.010 1.002-1.030 [facility] Work Phone: Urobilinogen Auto test strip Ql (U)on 03-24-2022 Urobilinogen Ql (U) Normal mg/dl Normal [facility] Work Phone: CNPNon 03-23-2022 [facility] Telephone (GENSWS) -------- GUSTAVO CERDA ([id number]) 1960 Date Time Provider Department 03/23/22 RENETTA ALEX During your visit today, we recorded the following information about you: Renetta Alex MD 03/23/2022 1:09 PM Signed Spoke to patient regarding plan with controlled bile leak, s/p ERCP with stent DIscussed with hepato/biliary surgeon - will plan continued observation for another week. If no improvement, will consider repeat ERCP with placement of covered stent. I have told patient that this is not available at [facility], thus he may have to go to [facility] for this procedure. I will call patient on Tuesday to check on his status. Patient acknowledges above. Allergies As of Date: 03/23/2022 (No Known Allergies) Date Reviewed: 03/22/2022 Reviewed by: Kenzie Echols LPN - Fully Assessed Reason for Visit: Patient Update [1234] Prescriptions as of 03/23/2022 - lisinopril (ZESTRIL, PRINIVIL) 20 mg tablet Take 20 mg by mouth once daily. - amLODIPine (NORVASC) 10 mg tablet Take 10 mg by mouth once daily. - acetaminophen (TYLENOL ORAL) Take by mouth as needed. Problem List As Of Date: 03/23/2022 (None) Encounter Status:Closed by RENETTA ALEX on 03/23/22 [facility] CNOVon 03-22-2022 CNOV Office Visit (RAISSAS ) -------- GUSTAVO CERDA ([id number]) 1960 M Date Time Provider Department 03/22/22 2:40 PM RENETTA ALEX During your visit today, we recorded the following information about you: Temperature Pulse Blood pressure Weight 97.6 degrees 111/minute 148/78 159.7 kg Height 1.778 m Renetta Alex MD 03/22/2022 7:07 PM Signed FOLLOW UP VISIT NAME: Gustavo Cerda CLINIC NO.: [id number] DATE OF SERVICE: 03/22/2022 : 1960 Gustavo is status post ERCP done on March 12 and had post-ERCP pancreatitis requiring hospital admission. He was discharged on 03/18/2022. He underwent ERCP for controlled bile leak after open cholecystectomy on 02/18/2022. He denies abdominal pain. He notes bile colored output - 75 ml/day - he has noted. Will need to wait until output is about 25 cc/day. Patient counseled to follow up at that point. PHYSICAL EXAMINATION: VITALS: Blood pressure 148/78, pulse 111, temperature 36.4 ?C (97.6 ?F), height 177.8 cm (5' 10), weight (!) 159.7 kg (352 lb), SpO2 96 %. On examination, abdomen is soft, obese, and benign. KENNETH site is clean and dry. Incision sites are well healed. Assessment IMPRESSION: controlled bile leak - will await decreased output before removing drained PLAN: Patient to follow up with me when output is about 25 ml/day, he has been educated as to this. Diagnoses: (Z90.49) Status post cholecystectomy (primary encounter diagnosis) I have confirmed and edited as necessary, the PFSH and ROS obtained by others. ___ Renetta Alex MD Referring Provider: SELF [200] Allergies As of Date: 03/22/2022 (No Known Allergies) Date Reviewed: 03/22/2022 Reviewed by: Kenzie Echols LPN - Fully Assessed Reason for Visit: Follow Up [171] Cmt: [facility] admit, d/c 03/18/22, pancreatitis Primary Visit Diagnosis:Status post cholecystectomy [Z90.49] Prescriptions as of 03/22/2022 - lisinopril (ZESTRIL, PRINIVIL) 20 mg tablet Take 20 mg by mouth once daily. - amLODIPine (NORVASC) 10 mg tablet Take 10 mg by mouth once daily. - acetaminophen (TYLENOL ORAL) Take by mouth as needed. Problem List As Of Date: 03/22/2022 (None) Disposition: Return in about 1 week (around 03/29/2022). Follow-up and Disposition History for Encounter Date Provider Department Center 03/22/2022 [id number] ALEXDalton [facility] Encounter Status:Closed by RENETTA ALEX on 03/22/22 [facility] Absolute lymphocyte counton 03-18-2022 Lymphocytes Auto (Unsp spec) [#/Vol] 1.06 10*3/uL 0.83-4.51 [facility] Work Phone: Basophil percentageon 2021 Basophils/100 WBC (Bld) 0.4 % 0-1 [facility] Work Phone: Chloride [Moles/Vol] 100 mmol/L 98-107 [facility] Work Phone: Eosinophils/100 WBC (Bld) 0.6 % 0-5 [facility] Work Phone: Glucose [Mass/Vol] 122 mg/dL 74-106 [facility] Work Phone: Comment on above: Fasting Glucose resu lt from 100 to 125 mg/dL suggests IMPAIRED HOMEOSTASIS per A.D.A. criteria. Neutrophils (Bld) [#/Vol] 9.5 10*3/uL 2.0-7.7 [facility] Work Phone: Neutrophils/100 WBC (Bld) 77.2 % 47-70 [facility] Work Phone: Potassium [Moles/Vol] 3.5 mmol/L 3.5-5.1 [facility] Work Phone: Sodium [Moles/Vol] 134 mmol/L 136-145 [facility] Work Phone: WBC (Bld) [#/Vol] 12.3 10*3/uL 4.4-11.0 [facility] Work Phone: Blood erythrocytes count (nu mber/volume)on 03-18-2022 RBC (Bld) [#/Vol] 4.29 10*6/uL 4.6-6.2 [facility] Work Phone: Blood hemoglobin measurement (mass/volume)on 03-18-2022 Hemoglobin (Bld) [Mass/Vol] 12.9 g/dL 13.0-16.5 [facility] Work Phone: Blood lymphocytes/100 leukoc yteson 03-18-2022 Lymphocytes/100 WBC (Bld) 8.6 % 19-41 [facility] Work Phone: Blood monocytes/100 leukocyt eson 03-18-2022 Monocytes/100 WBC (Bld) 11.4 % 0-10 [facility] Work Phone: Blood platelet mean volumeon 03-18-2022 Platelet mean volume (Bld) [Entitic vol] 8.8 fL 6.2-12.0 [facility] Work Phone: Determination of erythrocyte mean corpuscular volume (MCV)on 03-18-2022 MCV (RBC) [Entitic vol] 87.6 fL 80-94 [facility] Work Phone: Hematocrit Auto (Bld) [Volum e fraction]on 03-18-2022 Hematocrit (Bld) [Volume fraction] 37.6 % 40-54 [facility] Work Phone: Laboratory - Chemistry and C hemistry - challengeon 03-18-2022 CO2 [Moles/Vol] 27.0 mmol/L 21.0-32.0 [facility] Work Phone: Urea nitrogen/Creatinine [Mass ratio] 16.1 mg/mg 10-20 [facility] Work Phone: Laboratory - Hematology and Cell countson 03-18-2022 Erythrocyte distribution width (RBC) [Entitic vol] 42.0 fL 35.1-43.9 [facility] Work Phone: Erythrocyte distribution width (RBC) [Ratio] 13.2 % 11.6-14.6 [facility] Work Phone: Immature granulocytes/100 WBC (Bld) 1.800 % 0.0-0.9 [facility] Work Phone: Comment on above: IG% - Immature Granu locytes (promyelocytes, myelocytes and metamyelocytes) > 1% indicates that a LEFT SHIFT is Present. MCH (RBC) [Entitic mass] 30.1 pg 27.0-32.0 [facility] Work Phone: Nucleated RBC/100 WBC (Bld) [Ratio] 0 % 0-5 [facility] Work Phone: MCHC Auto (RBC) [Mass/Vol]on 03-18-2022 MCHC (RBC) [Mass/Vol] 34.3 g/dL 32-36 [facility] Work Phone: No Panel Informationon 03-18 Estimated Creatinine Clearance Calc 129.19 ml/min [facility] Work Phone: Estimated GFR (MDRD) Amer 169 mL/min >60 [facility] Work Phone: Comment on above: GFR Calc Estimated GFR (MDRD) Non-Af Amer 140 mL/min >60 [facility] Work Phone: Comment on above: Non- GFR Calc Platelets bldon 03-18-2022 Platelets (Bld) [#/Vol] 249 10*3/uL 150-450 [facility] Work Phone: Serum or plasma calcium sammy urement (mass/volume)on 03-18-2022 Calcium [Mass/Vol] 8.3 mg/dL 8.5-10.1 [facility] Work Phone: Serum or plasma creatinine m easurement (mass/volume)on 03-18-2022 Creatinine [Mass/Vol] 0.62 mg/dL 0.70-1.30 [facility] Work Phone: Comment on above: The validity of the calculated GFR & GFRAA in patients over 70 years has not been determined. Clinical correlation is essential. Serum or plasma urea nitroge n measurement (mass/volume)on 03-18-2022 Urea nitrogen [Mass/Vol] 10 mg/dL 7-18 [facility] Work Phone: Thin prep Papanicolaou smear with manual screeningon 03-18-2022 Thin prep Papanicolaou smear with manual screening 7 5-15 [facility] Work Phone: Whole blood hemoglobin A1c/t otal hemoglobin ratio (mass fraction)on 03-17-2022 HbA1c (Bld) [Mass fraction] 5.7 % 3.8-5.6 [facility] Work Phone: Comment on above: Normal < 5.7 % Predi abetic 5.7 - 6.4 % Diabetic >or= 6.5 % Please note range changes. Laboratory - Chemistry and C hemistry - challengeon 03-15-2022 Lipase [Catalytic activity/Vol] 437 U/L 73-393 [facility] Work Phone: Basophil percentageon 2021 Lactate [Moles/Vol] 1.3 mmol/L 0.4-2.0 [facility] Work Phone: Absolute lymphocyte counton 03-12-2022 Lymphocytes Auto (Unsp spec) [#/Vol] 1.15 10*3/uL 0.83-4.51 [facility] Work Phone: Basophil percentageon 2021 Basophils/100 WBC (Bld) 0.0 % 0-1 [facility] Work Phone: Bilirubin [Mass/Vol] 0.80 mg/dL 0.20-1.00 [facility] Work Phone: Comment on above: For patients on eltr ombopag therapy, use of Dimension [place] TBIL is not recommended. Chloride [Moles/Vol] 105 mmol/L 98-107 [facility] Work Phone: Eosinophils/100 WBC (Bld) 0.0 % 0-5 [facility] Work Phone: Glucose [Mass/Vol] 225 mg/dL 74-106 [facility] Work Phone: Comment on above: Glucose result great er than or equal to 200 mg/dLsuggests DIABETES MELLITUS per A.D.A. criteria. Lactate [Moles/Vol] 2.1 mmol/L 0.4-2.0 [facility] Work Phone: Comment on above: Critical Result(s) C alled at: 23:07:19 03/12/2022 by: Dalila tadeo [place] [id number]. Results read back by same. Neutrophils (Bld) [#/Vol] 5.4 10*3/uL 2.0-7.7 [facility] Work Phone: Neutrophils/100 WBC (Bld) 77.8 % 47-70 [facility] Work Phone: Potassium [Moles/Vol] 4.4 mmol/L 3.5-5.1 [facility] Work Phone: Protein [Mass/Vol] 7.2 g/dL 6.4-8.2 [facility] Work Phone: Sodium [Moles/Vol] 136 mmol/L 136-145 [facility] Work Phone: WBC (Bld) [#/Vol] 6.9 10*3/uL 4.4-11.0 [facility] Work Phone: Blood erythrocytes count (nu mber/volume)on 03-12-2022 RBC (Bld) [#/Vol] 5.11 10*6/uL 4.6-6.2 [facility] Work Phone: Blood hemoglobin measurement (mass/volume)on 03-12-2022 Hemoglobin (Bld) [Mass/Vol] 15.8 g/dL 13.0-16.5 [facility] Work Phone: Blood lymphocytes/100 leukoc yteson 03-12-2022 Lymphocytes/100 WBC (Bld) 16.7 % 19-41 [facility] Work Phone: Blood monocytes/100 leukocyt eson 03-12-2022 Monocytes/100 WBC (Bld) 5.2 % 0-10 [facility] Work Phone: Blood platelet mean volumeon 03-12-2022 Platelet mean volume (Bld) [Entitic vol] 8.7 fL 6.2-12.0 [facility] Work Phone: Determination of erythrocyte mean corpuscular volume (MCV)on 03-12-2022 MCV (RBC) [Entitic vol] 87.1 fL 80-94 [facility] Work Phone: Direct bilirubinon 2 Bilirubin.direct [Mass/Vol] 0.29 mg/dL 0.00-0.30 [facility] Work Phone: Hematocrit Auto (Bld) [Volum e fraction]on 03-12-2022 Hematocrit (Bld) [Volume fraction] 44.5 % 40-54 [facility] Work Phone: Laboratory - Chemistry and C hemistry - challengeon 03-12-2022 ALP [Catalytic activity/Vol] 87 U/L 45-117 [facility] Work Phone: ALT [Catalytic activity/Vol] 46 U/L 16-61 [facility] Work Phone: CO2 [Moles/Vol] 24.0 mmol/L 21.0-32.0 [facility] Work Phone: Globulin (S) [Mass/Vol] 4.0 g/dL 2.2-4.2 [facility] Work Phone: Lipase [Catalytic activity/Vol] 33408 U/L 73-393 [facility] Work Phone: Urea nitrogen/Creatinine [Mass ratio] 16.5 mg/mg 10-20 [facility] Work Phone: Laboratory - Hematology and Cell countson 03-12-2022 Erythrocyte distribution width (RBC) [Entitic vol] 39.7 fL 35.1-43.9 [facility] Work Phone: Erythrocyte distribution width (RBC) [Ratio] 12.4 % 11.6-14.6 [facility] Work Phone: Immature granulocytes/100 WBC (Bld) 0.300 % 0.0-0.9 [facility] Work Phone: Comment on above: IG% - Immature Granu locytes (promyelocytes, myelocytes and metamyelocytes) > 1% indicates that a LEFT SHIFT is Present. MCH (RBC) [Entitic mass] 30.9 pg 27.0-32.0 [facility] Work Phone: Nucleated RBC/100 WBC (Bld) [Ratio] 0 % 0-5 [facility] Work Phone: MCHC Auto (RBC) [Mass/Vol]on 03-12-2022 MCHC (RBC) [Mass/Vol] 35.5 g/dL 32-36 [facility] Work Phone: No Panel Informationon 03-12 Estimated Creatinine Clearance Calc 73.48 ml/min [facility] Work Phone: Estimated GFR (MDRD) Amer 88 mL/min >60 [facility] Work Phone: Comment on above: GFR Calc Estimated GFR (MDRD) Non-Af Amer 73 mL/min >60 [facility] Work Phone: Comment on above: Non- GFR Calc Platelets bldon 03-12-2022 Platelets (Bld) [#/Vol] 290 10*3/uL 150-450 [facility] Work Phone: Serum or plasma albumin sammy urement (mass/volume)on 03-12-2022 Albumin [Mass/Vol] 3.2 g/dL 3.2-5.0 [facility] Work Phone: Serum or plasma calcium sammy urement (mass/volume)on 03-12-2022 Calcium [Mass/Vol] 9.1 mg/dL 8.5-10.1 [facility] Work Phone: Serum or plasma creatinine m easurement (mass/volume)on 03-12-2022 Creatinine [Mass/Vol] 1.09 mg/dL 0.70-1.30 [facility] Work Phone: Comment on above: The validity of the calculated GFR & GFRAA in patients over 70 years has not been determined. Clinical correlation is essential. Serum or plasma urea nitroge n measurement (mass/volume)on 03-12-2022 Urea nitrogen [Mass/Vol] 18 mg/dL 7-18 [facility] Work Phone: Thin prep Papanicolaou smear with manual screeningon 03-12-2022 Thin prep Papanicolaou smear with manual screening 26 U/L 15-37 [facility] Work Phone: Thin prep Papanicolaou smear with manual screening 7 5-15 [facility] Work Phone: CNOVon 03-10-2022 CNOV Office Visit (MELLY ) -------- GUSTAVO CERDA ([id number]) 1960 M Date Time Provider Department 03/10/22 2:40 PM ALEX, RENETTA MIHIR GENSWS During your visit today, we recorded the following information about you: Temperature Pulse Blood pressure Weight 98 degrees 87/minute 144/72 158.8 kg Height 1.778 m Kenzie Echols LPN 03/10/2022 3:11 PM Signed The abdomen was assessed and lamont were removed as ordered. Dressing was applied. (steri strips) Patient instructed on wound care and verbalized understanding. MOSES Lee MD 03/10/2022 7:18 PM Signed FOLLOW UP VISIT NAME: Gustavo Cerda [facility] NO.: [id number] DATE OF SERVICE: 03/10/2022 : 1960 REFERRING PHYSICIAN: No primary care provider on file. Gustavo is status post open cholecystectomy. He presents with a controlled bile leak. He is scheduled for ERCP on Tuesday. VITALS: Blood pressure 144/72, pulse 87, temperature 36.7 ?C (98 ?F), height 177.8 cm (5' 10), weight (!) 158.8 kg (350 lb), SpO2 98 %. On examination, abdomen is soft and benign. Wounds are well healed without evidence of infection. KENNETH output has light colored bile. Assessment IMPRESSION: controlled bile leak after cholecystectomy PLAN: Patient to follow up with me after the ERCP, so that KENNETH drain can be discontinued. Diagnoses: (Z90.49) Status post cholecystectomy (primary encounter diagnosis) I have confirmed and edited as necessary, the PFSH and ROS obtained by others. ___ Renetta Alex MD Referring Provider: RENETTA ALEX [[id number]] Allergies As of Date: 03/10/2022 (No Known Allergies) Date Reviewed: 03/10/2022 Reviewed by: Kenzie Echols LPN - Fully Assessed Reason for Visit: Follow Up [171] Cmt: review HIDA scan, remove stitches on abdomen Primary Visit Diagnosis:Status post cholecystectomy [Z90.49] Prescriptions as of 03/10/2022 - acetaminophen (TYLENOL ORAL) Take by mouth as needed. Problem List As Of Date: 03/10/2022 (None) Visit Notes: >> Kenzie Echols LPN TueMar 10, 2022 3:10 PM Status: Signed The abdomen was assessed and lamont were removed as ordered. Dressing was applied. (steri strips) Patient instructed on wound care and verbalized understanding. Kenzie Echols LPN Disposition: Return in about 6 days (around 03/16/2022). Follow-up and Disposition History for Encounter Date Provider Department Center 03/10/2022 [id number] ALEX Kamala Samaniego Encounter Status:Closed by [facility]LEX [facility] Telephone (FAMPWS) -------- GUSTAVO CERDA ([id number]) 1960 Date Time Provider Department 03/04/22 RENETTA ALEX During your visit today, we recorded the following information about you: Viri Rush 03/04/2022 10:38 AM Signed [facility] called over to get orders transferred to Dr. Leung's office, they are stating they never received any consultation, was wondering if they could be sent again. Fax #: [phone] Please Advise Yong Land RN 03/04/2022 4:34 PM Signed Referral and office visit note from Dr. Alex were faxed at 10:23 am this morning. Fax conformation sheet received ([phone]). Faxed the results of the HIDA scan to Dr. Leung's office ([phone]) at 1621, fax conformation sheet received. Attempted to call Dr. Leung's office, but the are closed as of 1629. Yong Land RN Allergies As of Date: 03/04/2022 (No Known Allergies) Date Reviewed: 03/04/2022 Reviewed by: Starla Guerrier, RT(R) - Partially Assessed Reason for Visit: Orders [681] Prescriptions as of 03/04/2022 - acetaminophen (TYLENOL ORAL) Take by mouth as needed. Problem List As Of Date: 03/04/2022 (None) Encounter Status:Closed by YONG LAND on 03/04/22 Normal [facility] HEPATOBILIARY WO RXon NM HEPATOBILIARY WO RX * * *Final Report* * * DATE OF EXAM: Mar 04 2022 3:49PM WON 0022 - NM HEPATOBILIARY WO RX / PROCEDURE REASON: Calculus of gallbladder without cholecystitis without obstruction * * * * Physician Interpretation * * * * HEPATOBILIARY SCAN : CLINICAL HISTORY: Cholecystectomy abdominal pain, evaluate for bile leak TECHNIQUE: 4.9 mCi Tc-99m Choletec IV.followed by 60 minutes of abdominal imaging RESULT: There is prompt and relatively Homogeneous uptake by the liver. There is abnormal collection of activity along the inferomedial margin of the liver in the region of the gallbladder fossa. The activity traverses along the drainage tubing in the right of the abdomen. Findings suspicious for biliary leak. Proximal small bowel activity is noted by 12 minutes, indicating common bile duct patency. IMPRESSION: 1. Abnormal collection of activity as described. Findings indicative of biliary leak. Ceo Na: PSCB Transcribe Date/Time: Mar 04 2022 3:55P Dictated by : IVA CHOPRA MD This examination was interpreted and the report reviewed and electronically signed by: IVA CHOPRA MD on Mar 04 2022 3:57PM EST [id number] Normal [facility] CNNURSEon 03-03-2022 CNNURSE Nurse Visit (GENSWS) -------- GUSTAVO CERDA ([id number]) 1960 M Date Time Provider Department 03/03/22 2:00 PM [facility] During your visit today, we recorded the following information about you: Kenzie Echols LPN 03/03/2022 2:42 PM Signed The abdomen was assessed by Dr Alex and every other lamont were removed as ordered. Skin prep and steri strips applied. Patient instructed on wound care and verbalized understanding. Kenzie Echols LPN Referring Provider: SELF [[id number]] Allergies As of Date: 03/03/2022 (No Known Allergies) Date Reviewed: 02/24/2022 Reviewed by: Elizabeth Manriquez - Fully Assessed Primary Visit Diagnosis:Status post cholecystectomy [Z90.49] Prescriptions as of 03/04/2022 - acetaminophen (TYLENOL ORAL) Take by mouth as needed. Problem List As Of Date: 03/03/2022 (None) Visit Notes: >> Kenzie Echols LPN TueMar 03, 2022 2:05 PM Status: Signed The abdomen was assessed by Dr Alex and every other lamont were removed as ordered. Skin prep and steri strips applied. Patient instructed on wound care and verbalized understanding. Kenzie Echols LPN Encounter Status:Closed by KENZIE ECHOLS on 03/04/22 [facility] 03-03-2022 [facility] Telephone (GENSWS) -------- GUSTAVO CERDA ([id number]) 1960 M Date Time Provider Department 03/03/22 RENETTA ALEX During your visit today, we recorded the following information about you: Sallie Mars 03/03/2022 9:39 AM Signed Pts called wondering if pt can get stitches removed today or tomorrow. States they are bothering him. Dr. Alex did not have any openings. Please let him know if he should wait until appt this coming week with Dr. Alex. Yong Land, RN 03/03/2022 10:35 AM Signed Gustavo Brooks is scheduled for a HIDA scan on 03/04/22 and a follow-up visit with you on 03/08/22 to review the HIDA scan results. Gustavo is requesting an office visit for suture removal, prior to his f/u visit with you. I spoke with Mrs. Cerda, she advised that the sutures that are bothering him are along the incision line, not the suture that is in the drain. Offered an appointment for Tuesday, advised that they cannot come in on Tuesday. Please advise. HANNAH Franco RN 03/03/2022 12:48 PM Signed Renetta Alex MD You 19 minutes ago (12:27 PM) He can then come in tomorrow. ?Also use Benzoin, thanks Renetta Alex MD You 19 minutes ago (12:27 PM) These are just skin lamont - he could set up a nursing visit - just remove the skin lamont and placed steristrips instead, though at the right subcostal incision, I would remove just every other skin staple since the suture line is under a bit of tension - patient is obese. Spoke with patient, he will come in the office today, 03/03/22 for a nurse visit. Yong Land RN Allergies As of Date: 03/03/2022 (No Known Allergies) Date Reviewed: 02/24/2022 Reviewed by: Elizabeth Manriquez - Fully Assessed Reason for Visit: Patient Question [5237] Prescriptions as of 03/03/2022 - acetaminophen (TYLENOL ORAL) Take by mouth as needed. Problem List As Of Date: 03/03/2022 (None) Encounter Status:Closed by YONG LAND on 03/03/[facility] -------- GUSTAVO CERDA ([id number]) 1960 M Date Time Provider Department 03/03/22 RENETTA ALEX During your visit today, we recorded the following information about you: Elizabeth Manriquez 03/03/2022 4:03 PM Signed Patients ,Stephanie called And stated that 's office needs a referral From in order to schedule an appointment. Please Call Stephanie when referral is completed. Yong Land RN 03/04/2022 10:23 AM Signed Office visit note and request for consultation faxed to Dr. Leung's office. Fax conformation sheet received. Called Gustavo ([phone]) and advised that we had sent the requested information to Dr. Leung's office and they could call and schedule an appointment. Yong Land RN Allergies As of Date: 03/03/2022 (No Known Allergies) Date Reviewed: 02/24/2022 Reviewed by: Elizabeth Manriquez - Fully Assessed Reason for Visit: Patient Update [1234] Prescriptions as of 03/04/2022 - acetaminophen (TYLENOL ORAL) Take by mouth as needed. Problem List As Of Date: 03/03/2022 (None) Encounter Status:Closed by YONG LAND on 03/04/22 [facility] CNOVon 02-24-2022 CNOV Office Visit (RAISSAS ) -------- GUSTAVO CERDA ([id number]) 1960 M Date Time Provider Department 02/24/22 2:00 PM RENETTA ALEX During your visit today, we recorded the following information about you: Temperature Pulse Blood pressure Weight 98.4 degrees 78/minute 151/87 158.8 kg Height 1.778 m Renetta Alex MD 02/26/2022 12:33 PM Signed FOLLOW UP VISIT NAME: Gustavo Zaida CLINIC NO.: [id number] DATE OF SERVICE: 02/24/2022 : 1960 REFERRING PHYSICIAN: No primary care provider on file. Gustavo is status post open cholecystectomy done on 02/18/2022. He presents with intraabdominal drains x 2. He had severe cholecystitis with adhesions due to his previous exploratory laparotomy for liver trauma and he is supermorbidly obese. Pathology reveals - acute and chronic hemorrhagic and ulcerated cholecystitis and cholelithiasis. Reactive epithelial changes Because of the technically difficulty surgery - partial cholecystectomy was done and area of triangle of Calot could not be identified due to the inflammation/scar tissue/adiposity and cystic duct left open - drain placed in this vicinity He denies fevers VITALS: Blood pressure 151/87, pulse 78, temperature 36.9 ?C (98.4 ?F), height 177.8 cm (5' 10), weight (!) 158.8 kg (350 lb). On examination, abdomen is soft and obese. Incision is clean and dry. KENNETH output - superior drain is serosanguinous with minimal output. - removed without difficulty. Inferior drain - about 200 ml output per day according to patient and appears bile-colored. Assessment IMPRESSION: status post open cholecystectomy - technically difficult due to patient's previous surgery and body habitus, possible bile leak PLAN: Will order HIDA scan to rule out bile leak. If bile leak is detected - patient will require ERCP for stent placement in common bile duct to divert bile leak and allow area to heal over. This was told to patient and his . Patient to follow up after HIDA scan to discuss possible further treatment. Diagnoses: (K80.20) Calculus of gallbladder without cholecystitis without obstruction Return to Clinic: The patient is instructed to follow-up with me as above. ___ Renetta Alex MD Referring Provider: RENETTA ALEX [[id number]] Allergies As of Date: 02/24/2022 (No Known Allergies) Date Reviewed: 02/24/2022 Reviewed by: Elizabeth Manriquez - Fully Assessed Reason for Visit: Post Op [174] Cmt: Laparoscopic cholecystectomy Primary Visit Diagnosis:Status post cholecystectomy [Z90.49] Other Visit Diagnoses:Bile leak [K83.9] Morbid obesity (HCC) [E66.01] Order(s):NM HEPATOBILIARY WO RX [[id number]] Order #: [id number] FUTURE Prescriptions as of 02/26/2022 - acetaminophen (TYLENOL ORAL) Take by mouth as needed. Problem List As Of Date: 02/24/2022 (None) Disposition: Return in about 2 weeks (around 03/10/2022). Follow-up and Disposition History for Encounter Date Provider Department Center 02/24/2022 [id number] ALEXAARONDalton [facility] Encounter Status:Closed by RENETTA ALEX on 02/26/22 Normal [facility] Basophil percentageon 2021 Bilirubin [Mass/Vol] 1.20 mg/dL 0.20-1.00 [facility] Work Phone: Comment on above: For patients on eltr ombopag therapy, use of Dimension [place] TBIL is not recommended. Protein [Mass/Vol] 6.2 g/dL 6.4-8.2 [facility] Work Phone: Direct bilirubinon 2 Bilirubin.direct [Mass/Vol] 0.39 mg/dL 0.00-0.30 [facility] Work Phone: Laboratory - Chemistry and C hemistry - challengeon 02-20-2022 ALP [Catalytic activity/Vol] 55 U/L 45-117 [facility] Work Phone: ALT [Catalytic activity/Vol] 41 U/L 16-61 [facility] Work Phone: Globulin (S) [Mass/Vol] 3.6 g/dL 2.2-4.2 [facility] Work Phone: Serum or plasma albumin sammy urement (mass/volume)on 02-20-2022 Albumin [Mass/Vol] 2.6 g/dL 3.2-5.0 [facility] Work Phone: Thin prep Papanicolaou smear with manual screeningon 02-20-2022 Thin prep Papanicolaou smear with manual screening 19 U/L 15-37 [facility] Work Phone: Absolute lymphocyte counton 02-19-2022 Lymphocytes Auto (Unsp spec) [#/Vol] 0.73 10*3/uL 0.83-4.51 [facility] Work Phone: Basophil percentageon 2021 Basophils/100 WBC (Bld) 0.1 % 0-1 [facility] Work Phone: Chloride [Moles/Vol] 108 mmol/L 98-107 [facility] Work Phone: Eosinophils/100 WBC (Bld) 0.0 % 0-5 [facility] Work Phone: Glucose [Mass/Vol] 136 mg/dL 74-106 [facility] Work Phone: Comment on above: Fasting Glucose resu lt greater than or equal to 126 mg/dL suggests DIABETES MELLITUS per A.D.A. criteria. Neutrophils (Bld) [#/Vol] 9.7 10*3/uL 2.0-7.7 [facility] Work Phone: Neutrophils/100 WBC (Bld) 83.6 % 47-70 [facility] Work Phone: Potassium [Moles/Vol] 4.2 mmol/L 3.5-5.1 [facility] Work Phone: Sodium [Moles/Vol] 138 mmol/L 136-145 [facility] Work Phone: WBC (Bld) [#/Vol] 11.6 10*3/uL 4.4-11.0 [facility] Work Phone: Blood erythrocytes count (nu mber/volume)on 02-19-2022 RBC (Bld) [#/Vol] 4.38 10*6/uL 4.6-6.2 [facility] Work Phone: Blood hemoglobin measurement (mass/volume)on 02-19-2022 Hemoglobin (Bld) [Mass/Vol] 13.6 g/dL 13.0-16.5 [facility] Work Phone: Blood lymphocytes/100 leukoc yteson 02-19-2022 Lymphocytes/100 WBC (Bld) 6.3 % 19-41 [facility] Work Phone: Blood monocytes/100 leukocyt eson 02-19-2022 Monocytes/100 WBC (Bld) 8.9 % 0-10 [facility] Work Phone: Blood platelet mean volumeon 02-19-2022 Platelet mean volume (Bld) [Entitic vol] 8.8 fL 6.2-12.0 [facility] Work Phone: Determination of erythrocyte mean corpuscular volume (MCV)on 02-19-2022 MCV (RBC) [Entitic vol] 92.2 fL 80-94 [facility] Work Phone: Hematocrit Auto (Bld) [Volum e fraction]on 02-19-2022 Hematocrit (Bld) [Volume fraction] 40.4 % 40-54 [facility] Work Phone: Laboratory - Chemistry and C hemistry - challengeon 02-19-2022 CO2 [Moles/Vol] 25.0 mmol/L 21.0-32.0 [facility] Work Phone: Urea nitrogen/Creatinine [Mass ratio] 17.8 mg/mg 10-20 [facility] Work Phone: Laboratory - Hematology and Cell countson 02-19-2022 Erythrocyte distribution width (RBC) [Entitic vol] 44.4 fL 35.1-43.9 [facility] Work Phone: Erythrocyte distribution width (RBC) [Ratio] 13.1 % 11.6-14.6 [facility] Work Phone: Immature granulocytes/100 WBC (Bld) 1.100 % 0.0-0.9 [facility] Work Phone: Comment on above: IG% - Immature Granu locytes (promyelocytes, myelocytes and metamyelocytes) > 1% indicates that a LEFT SHIFT is Present. MCH (RBC) [Entitic mass] 31.1 pg 27.0-32.0 [facility] Work Phone: Nucleated RBC/100 WBC (Bld) [Ratio] 0 % 0-5 [facility] Work Phone: MCHC Auto (RBC) [Mass/Vol]on 02-19-2022 MCHC (RBC) [Mass/Vol] 33.7 g/dL 32-36 [facility] Work Phone: No Panel Informationon 02-19 Estimated Creatinine Clearance Calc 102.69 ml/min [facility] Work Phone: Estimated GFR (MDRD) Amer 129 mL/min >60 [facility] Work Phone: Comment on above: GFR Calc Estimated GFR (MDRD) Non-Af Amer 107 mL/min >60 [facility] Work Phone: Comment on above: Non- GFR Calc Platelets bldon 02-19-2022 Platelets (Bld) [#/Vol] 166 10*3/uL 150-450 [facility] Work Phone: Serum or plasma calcium sammy urement (mass/volume)on 02-19-2022 Calcium [Mass/Vol] 8.1 mg/dL 8.5-10.1 [facility] Work Phone: Serum or plasma creatinine m easurement (mass/volume)on 02-19-2022 Creatinine [Mass/Vol] 0.78 mg/dL 0.70-1.30 [facility] Work Phone: Comment on above: The validity of the calculated GFR & GFRAA in patients over 70 years has not been determined. Clinical correlation is essential. Serum or plasma urea nitroge n measurement (mass/volume)on 02-19-2022 Urea nitrogen [Mass/Vol] 14 mg/dL 7-18 [facility] Work Phone: Thin prep Papanicolaou smear with manual screeningon 02-19-2022 Thin prep Papanicolaou smear with manual screening 5 5-15 [facility] Work Phone: Absolute lymphocyte counton 02-18-2022 Lymphocytes Auto (Unsp spec) [#/Vol] 1.01 10*3/uL 0.83-4.51 [facility] Work Phone: Basophil percentageon 2021 Basophils/100 WBC (Bld) 0.1 % 0-1 [facility] Work Phone: Chloride [Moles/Vol] 105 mmol/L 98-107 [facility] Work Phone: Eosinophils/100 WBC (Bld) 0.2 % 0-5 [facility] Work Phone: Glucose [Mass/Vol] 127 mg/dL 74-106 [facility] Work Phone: Comment on above: Fasting Glucose resu lt greater than or equal to 126 mg/dL suggests DIABETES MELLITUS per A.D.A. criteria. Neutrophils (Bld) [#/Vol] 9.8 10*3/uL 2.0-7.7 [facility] Work Phone: Neutrophils/100 WBC (Bld) 81.0 % 47-70 [facility] Work Phone: Potassium [Moles/Vol] 4.1 mmol/L 3.5-5.1 [facility] Work Phone: Sodium [Moles/Vol] 135 mmol/L 136-145 [facility] Work Phone: WBC (Bld) [#/Vol] 12.1 10*3/uL 4.4-11.0 [facility] Work Phone: Blood erythrocytes count (nu mber/volume)on 02-18-2022 RBC (Bld) [#/Vol] 4.65 10*6/uL 4.6-6.2 [facility] Work Phone: Blood hemoglobin measurement (mass/volume)on 02-18-2022 Hemoglobin (Bld) [Mass/Vol] 14.5 g/dL 13.0-16.5 [facility] Work Phone: Blood lymphocytes/100 leukoc yteson 02-18-2022 Lymphocytes/100 WBC (Bld) 8.3 % 19-41 [facility] Work Phone: Blood monocytes/100 leukocyt eson 02-18-2022 Monocytes/100 WBC (Bld) 9.9 % 0-10 [facility] Work Phone: Blood platelet mean volumeon 02-18-2022 Platelet mean volume (Bld) [Entitic vol] 8.6 fL 6.2-12.0 [facility] Work Phone: Determination of erythrocyte mean corpuscular volume (MCV)on 02-18-2022 MCV (RBC) [Entitic vol] 91.6 fL 80-94 [facility] Work Phone: Hematocrit Auto (Bld) [Volum e fraction]on 02-18-2022 Hematocrit (Bld) [Volume fraction] 42.6 % 40-54 [facility] Work Phone: Laboratory - Chemistry and C hemistry - challengeon 02-18-2022 CO2 [Moles/Vol] 25.0 mmol/L 21.0-32.0 [facility] Work Phone: Urea nitrogen/Creatinine [Mass ratio] 20.0 mg/mg 10-20 [facility] Work Phone: Laboratory - Hematology and Cell countson 02-18-2022 Erythrocyte distribution width (RBC) [Entitic vol] 44.0 fL 35.1-43.9 [facility] Work Phone: Erythrocyte distribution width (RBC) [Ratio] 13.2 % 11.6-14.6 [facility] Work Phone: Immature granulocytes/100 WBC (Bld) 0.500 % 0.0-0.9 [facility] Work Phone: Comment on above: IG% - Immature Granu locytes (promyelocytes, myelocytes and metamyelocytes) > 1% indicates that a LEFT SHIFT is Present. MCH (RBC) [Entitic mass] 31.2 pg 27.0-32.0 [facility] Work Phone: Nucleated RBC/100 WBC (Bld) [Ratio] 0 % 0-5 [facility] Work Phone: MCHC Auto (RBC) [Mass/Vol]on 02-18-2022 MCHC (RBC) [Mass/Vol] 34.0 g/dL 32-36 [facility] Work Phone: No Panel Informationon 02-18 Estimated Creatinine Clearance Calc 94.23 ml/min [facility] Work Phone: Estimated GFR (MDRD) Amer 118 mL/min >60 [facility] Work Phone: Comment on above: GFR Calc Estimated GFR (MDRD) Non-Af Amer 97 mL/min >60 [facility] Work Phone: Comment on above: Non- GFR Calc Platelets bldon 02-18-2022 Platelets (Bld) [#/Vol] 182 10*3/uL 150-450 [facility] Work Phone: Serum or plasma calcium sammy urement (mass/volume)on 02-18-2022 Calcium [Mass/Vol] 7.9 mg/dL 8.5-10.1 [facility] Work Phone: Serum or plasma creatinine m easurement (mass/volume)on 02-18-2022 Creatinine [Mass/Vol] 0.85 mg/dL 0.70-1.30 [facility] Work Phone: Comment on above: The validity of the calculated GFR & GFRAA in patients over 70 years has not been determined. Clinical correlation is essential. Serum or plasma urea nitroge n measurement (mass/volume)on 02-18-2022 Urea nitrogen [Mass/Vol] 17 mg/dL 7-18 [facility] Work Phone: Thin prep Papanicolaou smear with manual screeningon 02-18-2022 Thin prep Papanicolaou smear with manual screening 5 5-15 [facility] Work Phone: Absolute lymphocyte counton 02-17-2022 Lymphocytes Auto (Unsp spec) [#/Vol] 1.25 10*3/uL 0.83-4.51 [facility] Work Phone: Basophil percentageon 2021 Basophil percentage 0-5 SEEN /hpf 0-5 [facility] Work Phone: Lactate [Moles/Vol] 0.9 mmol/L 0.4-2.0 [facility] Work Phone: Basophils/100 WBC (Bld) 0.2 % 0-1 [facility] Work Phone: Bilirubin [Mass/Vol] 1.00 mg/dL 0.20-1.00 [facility] Work Phone: Comment on above: For patients on eltr ombopag therapy, use of Dimension [place] TBIL is not recommended. Chloride [Moles/Vol] 102 mmol/L 98-107 [facility] Work Phone: Eosinophils/100 WBC (Bld) 0.5 % 0-5 [facility] Work Phone: Glucose [Mass/Vol] 137 mg/dL 74-106 [facility] Work Phone: Comment on above: Fasting Glucose resu lt greater than or equal to 126 mg/dL suggests DIABETES MELLITUS per A.D.A. criteria. Neutrophils (Bld) [#/Vol] 6.2 10*3/uL 2.0-7.7 [facility] [facility] Work Phone: Neutrophils/100 WBC (Bld) 75.4 % 47-70 [facility] Work Phone: Potassium [Moles/Vol] 4.4 mmol/L 3.5-5.1 [facility] Work Phone: Protein [Mass/Vol] 7.6 g/dL 6.4-8.2 [facility] Work Phone: Sodium [Moles/Vol] 136 mmol/L 136-145 [facility] Work Phone: WBC (Bld) [#/Vol] 8.2 10*3/uL 4.4-11.0 [facility] Work Phone: Bilirubin Test strip Ql (U)o n 02-17-2022 Bilirubin Ql (U) Negative Negative [facility] Work Phone: Blood erythrocytes count (nu mber/volume)on 02-17-2022 RBC (Bld) [#/Vol] 5.22 10*6/uL 4.6-6.2 [facility] Work Phone: Blood hemoglobin measurement (mass/volume)on 02-17-2022 Hemoglobin (Bld) [Mass/Vol] 16.5 g/dL 13.0-16.5 [facility] Work Phone: Blood lymphocytes/100 leukoc yteson 02-17-2022 Lymphocytes/100 WBC (Bld) 15.3 % 19-41 [facility] Work Phone: Blood monocytes/100 leukocyt eson 02-17-2022 Monocytes/100 WBC (Bld) 8.2 % 0-10 [facility] Work Phone: Blood platelet mean volumeon 02-17-2022 Platelet mean volume (Bld) [Entitic vol] 9.0 fL 6.2-12.0 [facility] Work Phone: Determination of erythrocyte mean corpuscular volume (MCV)on 02-17-2022 MCV (RBC) [Entitic vol] 91.6 fL 80-94 [facility] Work Phone: Direct bilirubinon Bilirubin.direct [Mass/Vol] 0.29 mg/dL 0.00-0.30 [facility] Work Phone: Hematocrit Auto (Bld) [Volum e fraction]on 02-17-2022 Hematocrit (Bld) [Volume fraction] 47.8 % 40-54 [facility] Work Phone: Ketones Test strip Ql (U)on 02-17-2022 Ketones Ql (U) Negative Negative [facility] Work Phone: Laboratory - Chemistry and C hemistry - challengeon 02-17-2022 ALP [Catalytic activity/Vol] 68 U/L 45-117 [facility] Work Phone: ALT [Catalytic activity/Vol] 35 U/L 16-61 [facility] Work Phone: CO2 [Moles/Vol] 26.0 mmol/L 21.0-32.0 [facility] Work Phone: Globulin (S) [Mass/Vol] 3.8 g/dL 2.2-4.2 [facility] Work Phone: Lipase [Catalytic activity/Vol] 56 U/L 73-393 [facility] Work Phone: Urea nitrogen/Creatinine [Mass ratio] 22.6 mg/mg 10-20 [facility] Work Phone: Laboratory - Hematology and Cell countson 02-17-2022 Erythrocyte distribution width (RBC) [Entitic vol] 42.8 fL 35.1-43.9 [facility] Work Phone: Erythrocyte distribution width (RBC) [Ratio] 12.8 % 11.6-14.6 [facility] Work Phone: Immature granulocytes/100 WBC (Bld) 0.400 % 0.0-0.9 [facility] Work Phone: Comment on above: IG% - Immature Granu locytes (promyelocytes, myelocytes and metamyelocytes) > 1% indicates that a LEFT SHIFT is Present. MCH (RBC) [Entitic mass] 31.6 pg 27.0-32.0 [facility] Work Phone: Nucleated RBC/100 WBC (Bld) [Ratio] 0 % 0-5 [facility] Work Phone: MCHC Auto (RBC) [Mass/Vol]on 02-17-2022 MCHC (RBC) [Mass/Vol] 34.5 g/dL 32-36 [facility] Work Phone: Mucus LM Ql (Urine sed)on Mucus Ql (Urine sed) 0 SEEN /hpf [facility] Work Phone: Nitrite Test strip Ql (U)on 02-17-2022 Nitrite Ql (U) Negative Negative [facility] Work Phone: No Panel Informationon 02-17 Estimated Creatinine Clearance Calc 86.13 ml/min [facility] Work Phone: Estimated GFR (MDRD) Amer 106 mL/min >60 [facility] Work Phone: Comment on above: GFR Calc Estimated GFR (MDRD) Non-Af Amer 88 mL/min >60 [facility] Work Phone: Comment on above: Non- GFR Calc Platelets bldon 02-17-2022 Platelets (Bld) [#/Vol] 244 10*3/uL 150-450 [facility] Work Phone: Protein Test strip Ql (U)on 02-17-2022 Protein Ql (U) Negative Negative [facility] Work Phone: Serum or plasma albumin sammy urement (mass/volume)on 02-17-2022 Albumin [Mass/Vol] 3.8 g/dL 3.2-5.0 [facility] Work Phone: Serum or plasma calcium sammy urement (mass/volume)on 02-17-2022 Calcium [Mass/Vol] 9.4 mg/dL 8.5-10.1 [facility] Work Phone: Serum or plasma creatinine m easurement (mass/volume)on 02-17-2022 Creatinine [Mass/Vol] 0.93 mg/dL 0.70-1.30 [facility] Work Phone: Comment on above: The validity of the calculated GFR & GFRAA in patients over 70 years has not been determined. Clinical correlation is essential. Serum or plasma urea nitroge n measurement (mass/volume)on 02-17-2022 Urea nitrogen [Mass/Vol] 21 mg/dL 7-18 [facility] Work Phone: Squamous epithelial cells de tection in urine sediment by light microscopyon 02-17-2022 Epithelial cells.squamous LM Ql (Urine sed) 0 SEEN /hpf 0-5 [facility] Work Phone: Thin prep Papanicolaou smear with manual screeningon 02-17-2022 Thin prep Papanicolaou smear with manual screening 17 U/L 15-37 [facility] Work Phone: Thin prep Papanicolaou smear with manual screening 8 5-15 [facility] Work Phone: Urine blood detectionon 06-0 -2021 RBC Ql (U) 250 /ul Negative [facility] Work Phone: RBC Ql (U) 25-50 SEEN /hpf 0-5 [facility] Work Phone: Urine clarityon 02-17-2022 Clarity (U) Clear Clear [facility] Work Phone: Urine color determinationon 02-17-2022 Color (U) Yellow Yellow [facility] Work Phone: Urine glucose detectionon Glucose Ql (U) Normal mg/dl Normal [facility] Work Phone: Urine leukocyte esterase det ection by dipstickon 02-17-2022 Leukocyte esterase Test strip Ql (U) 25 /ul Negative [facility] Work Phone: Urine pHon 02-17-2022 pH (U) 6.0 [pH] 5.0 - 8.0 [facility] Work Phone: Urine sediment bacteria coun t by microscopy (number/high power field)on 02-17-2022 Bacteria LM.HPF (Urine sed) [#/Area] 0 /[HPF] None Seen [facility] Work Phone: Urine specific gravity measu rementon 02-17-2022 Specific gravity (U) [Rel density] 1.020 1.002-1.030 [facility] Work Phone: Urobilinogen Auto test strip Ql (U)on 02-17-2022 Urobilinogen Ql (U) Normal mg/dl Normal [facility] Work Phone: Whole blood hemoglobin A1c/t otal hemoglobin ratio (mass fraction)on 02-17-2022 HbA1c (Bld) [Mass fraction] 5.7 % 3.8-5.6 [facility] Work Phone: Comment on above: Normal < 5.7 % Predi abetic 5.7 - 6.4 % Diabetic >or= 6.5 % Please note range changes. Basophil percentageon 2021 Chloride [Moles/Vol] 107 mmol/L 98-107 [facility] Work Phone: Potassium [Moles/Vol] 4.3 mmol/L 3.5-5.1 [facility] Work Phone: Sodium [Moles/Vol] 140 mmol/L 136-145 [facility] Work Phone: Laboratory - Chemistry and C hemistry - challengeon 02-16-2022 CO2 [Moles/Vol] 29.0 mmol/L 21.0-32.0 [facility] Work Phone: Thin prep Papanicolaou smear with manual screeningon 02-16-2022 Thin prep Papanicolaou smear with manual screening 4 5-15 [facility] Work Phone: OPERATIVE PROCEDURESon 07-[address] [facility] OPERATIVE REPORT NAME ACCOUNT SEX AGE ADMIT DISCHARGE PT MED. RECORD# NUMBER DATE DATE LUZ MARINA CERDA [id number] Arya 58 06/29/19 06/29/19 2 GUSTAVO Nolen [id number] ROOM: [facility] DATE OF : 1960 DICTATING PHYSICIAN: Luis Kline DATE OF SURGERY: June 29, 2019 SURGEON: Luis Kline MD SEWING MACHINE OPERATOR SEMIAUTOMATIC: ANESTHESIOLOGIST: Blanca Hernandez MD ANESTHETIC: PREOPERATIVE DIAGNOSIS: POSTOPERATIVE DIAGNOSIS: History of colonic polyps and hemorrhoids. OPERATION PERFORMED: Colonoscopy. COMPLICATIONS: ESTIMATED BLOOD LOSS: None. SPECIMEN: None. DISPOSITION: Stable, to recovery. INDICATIONS: Gustavo Cerda is a 58-year-old gentleman who has a prior history of colonic polyps and returns for repeat evaluation endoscopically. DESCRIPTION OF OPERATION: After informed consent, he was brought to endoscopy and placed on a padded gurney in the left lateral decubitus position with adequate padding of pressure points and time-out verification done. He was given sedation per Anesthesia with monitoring throughout. Digital examination showed some external hemorrhoidal tags, normal tone, and small internal tags. The prostate appears to be slightly enlarged, but I could not palpate any polyps. The Olympus [id number] flexible endoscope was introduced through the anal verge and carefully advanced, protecting the surrounding mucosa. The scope was advanced through the rectal vault and then through the sigmoid colon, which was rather tortuous, and then gradually Page 1 of 2 GUSTAVO CERDA Operative Report GUSTAVO CERDA : 1960 through the descending colon, beyond the splenic flexure, transverse colon, hepatic flexure, and ascending colon toward the ileocecal junction. The landmarks were noted and documented. The scope was rotated with irrigation and suctioning and withdrawn. The prep was adequate. The cecum and ascending colon were carefully viewed. The transverse, descending and sigmoid colon were carefully viewed with irrigation and suctioning in a back and forth movement as needed to facilitate the view. The scope was withdrawn into the rectal vault, retroflexed, rotated, straightened out and withdrawn with decompression. There are small internal and external hemorrhoids, but there was no tear, no fissure, no fungating mass, and no angiodysplasia. No polyps were seen, and no biopsies were taken. The patient can have repeat endoscopy in 10 years unless he has GI bleeding or other risk factors, but in the view of the fact that his father had colon cancer and the patient has a prior history of polyps, I would recommend that he have repeat endoscopy in 5 years. He was doing well at the close of the procedure. Dictated By: Luis Kline MD 06/29/19 11:26 JOB #: [id number] Transcribed By: [email or web address] 06/30/19 07:51 Electronically signed by: E-Sign Dr. Luis Kline MD 07/06/19 05:12 Page 2 of 2 GUSTAVO CERDA Operative Report Normal [facility] Vital Signs Date Time Vital Sign Value Performing Clinician Facility 12-04-2024 10:15-0400 Body height 175.[address] Tri Choudhury MD Work Phone: [facility] 12-04-2024 10:15-0400 Body weight 152.[address] Tri Choudhury MD Work Phone: [facility] 11-08-2024 09:30-0500 Body weight 156.[address] Tri Choudhury MD Work Phone: [facility] 10-10-2024 06:16-0500 Body mass index (BMI) [Ratio] 51.5 kg/m2 Dr. Tri Choudhury MD Work Phone: [facility] 10-10-2024 06:16-0500 Body temperature 97.6 [degF] Dr. Tri Choudhury MD Work Phone: [facility] 10-10-2024 06:16-0500 Body weight 158.[address] Tri Choudhury MD Work Phone: [facility] 10-10-2024 06:16-0500 Diastolic blood pressure 75 mm[Hg] Dr. Tri Choudhury MD Work Phone: [facility] 10-10-2024 06:16-0500 Heart rate 68 /min Dr. Tri Choudhury MD Work Phone: [facility] 10-10-2024 06:16-0500 Respiratory rate 18 /min Dr. Tri Choudhury MD Work Phone: [facility] 10-10-2024 06:16-0500 SaO2% (BldA) [Mass fraction] 96 % Dr. Tri Choudhury MD Work Phone: [facility] 10-10-2024 06:16-0500 Systolic blood pressure 130 mm[Hg] Dr. Tri Choudhury MD Work Phone: [facility] 10-04-2024 09:32-0500 Body weight 159.[address] Tri Choudhury MD Work Phone: [facility] 10-06-2023 07:51-0500 Body height 177.[address] Tri Choudhury Work Phone: [facility] 10-06-2023 07:51-0500 Body mass index (BMI) [Ratio] 50.3 kg/m2 Dr. Tri Choudhury Work Phone: [facility] 10-06-2023 07:51-0500 Body temperature 98.9 [degF] Dr. Tri Choudhury Work Phone: [facility] 10-06-2023 07:51-0500 Body weight 159.[address] Tri Choudhury Work Phone: [facility] 10-06-2023 07:51-0500 Diastolic blood pressure 83 mm[Hg] Dr. Tri Choudhury Work Phone: [facility] 10-06-2023 07:51-0500 Heart rate 76 /min Dr. Tri Choudhury Work Phone: [facility] 10-06-2023 07:51-0500 Respiratory rate 124 /min Dr. Tri Choudhury Work Phone: [facility] 10-06-2023 07:51-0500 SaO2% (BldA) [Mass fraction] 95 % Dr. Tri Choudhury Work Phone: [facility] 10-06-2023 07:51-0500 Systolic blood pressure 160 mm[Hg] Dr. Tri Choudhury Work Phone: [facility] 03-31-2023 07:24-0400 Blood Pressure Cuff Size PAULA QUEZADA MD [facility] 03-31-2023 07:24-0400 Blood Pressure Location PAULA QUEZADA MD [facility] 03-31-2023 07:24-0400 Blood Pressure Method PAULA QUEZADA MD [facility] 03-31-2023 07:24-0400 Body height 177 cm PAULA QUEZADA MD [facility] 03-31-2023 07:24-0400 Body temperature 97.88 [degF] PAULA QUEZADA MD [facility] 03-31-2023 07:24-0400 Body weight 156.6 kg PAULA QUEZADA MD [facility] 03-31-2023 07:24-0400 Body weight 49.99 kg/m2 PAULA QUEZADA MD [facility] 03-31-2023 07:24-0400 Diastolic Blood Pressure Non-Invasive 81 1 PAULA QUEZADA MD [facility] 03-31-2023 07:24-0400 Heart rate 64 /min PAULA QUEZADA MD [facility] 03-31-2023 07:24-0400 Systolic Blood Pressure Non-Invasive 144 1 PAULA QUEZADA MD [facility] 03-18-2023 09:53-0400 Body height 175.26 cm Tri Choudhury Work Phone[facility] Work Phone: 03-18-2023 09:53-0400 Body mass index (BMI) [Ratio] 50.5 kg/m2 Tri Choudhury Work Phone: [facility] Work Phone: 03-18-2023 09:53-0400 Body surface area Derived from formula 2.59 m2 Tri Choudhury Work Phone: [facility] Work Phone: 03-18-2023 09:53-0400 Body weight 155.13 kg Tri Choudhury Work Phone: AP-Waubzsk-Arhltv [facility] [address] Work Phone: 03-18-2023 09:53-0400 Diastolic blood pressure 74 mm[Hg] Tri Choudhury Work Phone: BI-Qubkfzj-Rxlxaj [facility] [address] Work Phone: 03-18-2023 09:53-0400 Heart rate 75 /min Tri Choudhury Work Phone: TY-Xcimxic-Mezngt n [facility] [address] Work Phone: 03-18-2023 09:53-0400 Systolic blood pressure 129 mm[Hg] Tri Choudhury Work Phone: BF-Uyoggac-Tcatzj [facility] [address] Work Phone: 03-08-2023 10:24-0400 0 1 Tri Choudhury Work Phone: WK-Pysifle-Snease [facility] [address] Work Phone: Comment on above: [employer] 03-08-2023 10:23-0400 Body mass index (BMI) [Ratio] 50.98 kg/m2 Tri Choudhury Work Phone: FB-Ogexgve-Xmurip [facility] [address] Work Phone: 03-08-2023 10:23-0400 Body surface area Derived from formula 2.61 m2 Tri Choudhury Work Phone: WY-Oxkysht-Otwror [facility] [address] Work Phone: 03-08-2023 10:23-0400 Body temperature 98.1 [degF] Tri Choudhury Work Phone: VR-Wjcnlxm-Znpgki [facility] [address] Work Phone: 03-08-2023 10:23-0400 Body weight 156.61 kg Tri Choudhury Work Phone: UV-Iflvybb-Lgsrju [facility] [address] Work Phone: 03-08-2023 10:23-0400 Diastolic blood pressure 81 mm[Hg] Tri E Miedel Work Phone: [facility] Work Phone: 03-08-2023 10:23-0400 Heart rate 80 /min Tri E Miedel Work Phone: K[facility] Work Phone: 03-08-2023 10:23-0400 Systolic blood pressure 147 mm[Hg] Tri E Miedel Work Phone: [facility] Work Phone: 02-27-2023 11:49-0400 Body temperature 97.52 [degF] Tri Miedel Other Phone: [facility] 02-27-2023 11:49-0400 Diastolic blood pressure 76 mm[Hg] Tri Miedel Other Phone: [facility] 02-27-2023 11:49-0400 Heart rate 60 /min Tri Miedel Other Phone: [facility] 02-27-2023 11:49-0400 Respiratory rate 18 /min Tri Miedel Other Phone: [facility] 02-27-2023 11:49-0400 SaO2% (BldA) [Mass fraction] 93 % Tri Miedel Other Phone: [facility] 02-27-2023 11:49-0400 Systolic blood pressure 122 mm[Hg] Tri Miedel Other Phone: [facility] 02-02-2023 11:20-0400 Body height 175.26 cm Referring Provider Unknown [facility] Work Phone: 02-02-2023 11:20-0400 Body mass index (BMI) [Ratio] 50.36 kg/m2 Referring Provider Unknown DA-Txbgkrx-Risvsp [facility] [address] Work Phone: 02-02-2023 11:20-0400 Body surface area Derived from formula 2.59 m2 Referring Provider Unknown UZ-Yurlbuf-Rjmnzy [facility] [address] Work Phone: 02-02-2023 11:20-0400 Body weight 154.68 kg Referring Provider Unknown SK-Anwqesi-Mnnlqg [facility] [address] Work Phone: 02-02-2023 11:20-0400 Diastolic blood pressure 65 mm[Hg] Referring Provider Unknown ND[facility] Work Phone: 02-02-2023 11:20-0400 Heart rate 62 /min Referring Provider Unknown CP[facility]ah[facility] Work Phone: 02-02-2023 11:20-0400 Systolic blood pressure 125 mm[Hg] Referring Provider Unknown ZK-Ruldgdv-Igytbb [facility] [address] Work Phone: 01-15-2023 11:13-0400 Heart rate 50 /min DR LILLY DELGADO MD [facility] 01-15-2023 08:20-0400 Body temperature 97.52 [degF] DR LILLY DELGADO MD [facility] 01-15-2023 08:20-0400 Diastolic Blood Pressure Non-Invasive [address] LILLY DELGADO MD [facility] 01-15-2023 08:20-0400 Heart rate 49 /min DR LILLY DELGADO MD [facility] 01-15-2023 08:20-0400 Reason For Taking VItal Signs DR LILLY DELGADO MD [facility] 01-15-2023 08:20-0400 Respiratory rate 18 /min DR LILLY DELGADO MD [address] [place] [address] 01-15-2023 08:20-0400 Systolic Blood Pressure Non-Invasive [address] LILLY DELGADO MD [address] [place] [address] 01-15-2023 04:11-0400 Body temperature 97.52 [degF] DR LILLY DELGADO MD [address] [place] [address] 01-15-2023 04:11-0400 Diastolic Blood Pressure Non-Invasive [address] LILLY DELGADO MD [address] [place] [address] 01-15-2023 04:11-0400 Heart rate 50 /min DR LILLY DELGADO MD [address] [place] [address] 01-15-2023 04:11-0400 Respiratory rate 16 /min DR LILLY DELGADO MD [address] [place] [address] 01-15-2023 04:11-0400 Systolic Blood Pressure Non-Invasive [address] LILLY DELGADO MD [address] [place] [address] 01-14-2023 23:59-0400 Body temperature 97.7 [degF] DR LILLY DELGADO MD [address] [place] [address] 01-14-2023 23:59-0400 Diastolic Blood Pressure Non-Invasive [address] LILLY DELGADO MD [address] [place] [address] 01-14-2023 23:59-0400 Respiratory rate 16 /min DR LILLY DELGADO MD [address] [place] [address] 01-14-2023 23:59-0400 Systolic Blood Pressure Non-Invasive [address] LILLY DELGADO MD [address] [place] [address] 01-14-2023 18:17-0400 Heart rate 72 /min DR LILLY DELGADO MD [address] [place] [address] 01-14-2023 18:17-0400 Reason For Taking VItal Signs DR LILLY DELGADO MD [address] [place] [address] 01-14-2023 17:43-0400 Body temperature 97.7 [degF] DR LILLY DELGADO MD [address] [place] [address] 01-14-2023 17:43-0400 Heart rate 70 /min DR LILLY DELGADO MD [address] [place] [address] 01-14-2023 17:43-0400 Mean blood pressure 64 mm[Hg] DR LILLY DELGADO MD [address] [place] [address] 01-14-2023 17:29-0400 Heart rate 72 /min DR LILLY DELGADO MD [address] [place] [address] 01-14-2023 17:29-0400 Mean blood pressure 68 mm[Hg] DR LILLY DELGADO MD [address] [place] [address] 01-14-2023 17:13-0400 Body temperature 97.7 [degF] DR LILLY DELGADO MD [address] [place] [address] 01-14-2023 17:13-0400 Mean blood pressure 64 mm[Hg] DR LILLY DELGADO MD [address] [place] [address] 01-14-2023 17:05-0400 Respiratory Rate - Anes 0 br/min DR LILLY DELGADO MD [address] [place] [address] 01-14-2023 17:00-0400 Respiratory Rate - Anes 17 br/min DR LILLY DELGADO MD [address] [place] [address] 01-14-2023 16:55-0400 Respiratory Rate - Anes 8 br/min DR LILLY DELGADO MD [address] [place] [address] 01-14-2023 16:50-0400 Body temperature 96.91 [degF] DR LILLY DELGADO MD [address] [place] [address] 01-14-2023 16:45-0400 Body temperature 96.91 [degF] DR LILLY DELGADO MD [address] [place] [address] 01-14-2023 16:40-0400 Body temperature 96.93 [degF] DR LILLY DELGADO MD [address] [place] [address] 01-14-2023 07:24-0400 Body weight 49.47 kg/m2 DR LILLY DELGADO MD [address] [place] [address] 01-13-2023 09:53-0400 Heart rate 64 /min DR LILLY DELGADO MD [address] [place] [address] 01-13-2023 09:34-0400 Body temperature 97.34 [degF] DR LILLY DELGADO MD [address] [place] [address] 01-13-2023 09:05-0400 Reason For Taking VItal Signs DR LILLY DELGADO MD [address] [place] [address] 01-13-2023 04:32-0400 Heart rate 55 /min DR LILLY DELGADO MD [address] 01-12-2023 14:43-0400 Body temperature 97.34 [degF] DR LILLY DELGADO MD [address] [place] [address] 01-10-2023 21:34-0400 Heart rate 79 /min DR LILLY DELGADO MD [address] [place] [address] 01-10-2023 04:07-0400 Body height 177.[address] LILLY DELGADO MD [address] 01-10-2023 04:07-0400 Body weight 156.[address] LILLY DELGADO MD [address] [place] [address] 01-10-2023 04:07-0400 Body weight 49.47 kg/m2 DR LILLY DELGADO MD [address] [place] [address] 01-10-2023 02:19-0400 Diastolic Blood Pressure Non-Invasive 68 1 LATOYA HERRERA MD [facility] 01-10-2023 02:19-0400 Heart rate 70 /min LATOYA HERRERA MD [facility] 01-10-2023 02:19-0400 Respiratory rate 18 /min LATOYA HERRERA MD [facility] 01-10-2023 02:19-0400 Systolic Blood Pressure Non-Invasive 128 1 LATOYA HERRERA MD [facility] 01-09-2023 23:53-0400 Diastolic Blood Pressure Non-Invasive 65 1 LATOYA HERRERA MD [facility] 01-09-2023 23:53-0400 Heart rate 63 /min LATOYA HERRERA MD [facility] 01-09-2023 23:53-0400 Respiratory rate 20 /min LATOYA HERRERA MD [facility] 01-09-2023 23:53-0400 Systolic Blood Pressure Non-Invasive 135 1 LATOYA HERRERA MD [facility] 01-09-2023 22:17-0400 Body temperature 98.6 [degF] LATOYA HERRERA MD [facility] 01-09-2023 22:17-0400 Diastolic Blood Pressure Non-Invasive 66 1 LATOYA HERRERA MD [facility] 01-09-2023 22:17-0400 Heart rate 68 /min LATOYA HERRERA MD [facility] 01-09-2023 22:17-0400 Respiratory rate 14 /min LATOYA HERRERA MD [facility] 01-09-2023 22:17-0400 Systolic Blood Pressure Non-Invasive 143 1 LATOYA HERRERA MD [facility] 08-24-2022 10:08-0500 Body temperature 97.7 [degF] CORNELIO WEAVER MD [facility] 08-24-2022 10:08-0500 Diastolic Blood Pressure Non-Invasive 62 1 CORNELIO WEAVER MD [facility] 08-24-2022 10:08-0500 Heart rate 73 /min CORNELIO WEAVER MD [facility] 08-24-2022 10:08-0500 Respiratory rate 16 /min CORNELIO WEAVER MD [facility] 08-24-2022 10:08-0500 Systolic Blood Pressure Non-Invasive 111 1 CORNELIO WEAVER MD [facility] 08-24-2022 09:56-0500 Body temperature 98.24 [degF] CORNELIO WEAVER MD [facility] 08-24-2022 09:56-0500 Diastolic Blood Pressure Non-Invasive 53 1 CORNELIO WEAVER MD [facility] 08-24-2022 09:56-0500 Heart rate 72 /min CORNELIO WEAVER MD [facility] 08-24-2022 09:56-0500 Mean blood pressure 61 mm[Hg] CORNELIO WEAVER MD [facility] 08-24-2022 09:56-0500 Respiratory rate 16 /min CORNELIO WEAVER MD [facility] 08-24-2022 09:56-0500 Systolic Blood Pressure Non-Invasive 101 1 CORNELIO WEAVER MD [facility] 08-24-2022 09:42-0500 Diastolic Blood Pressure Non-Invasive 57 1 CORNELIO WEAVER MD [facility] 08-24-2022 09:42-0500 Heart rate 73 /min CORNELIO WEAVER MD [facility] 08-24-2022 09:42-0500 Mean blood pressure 69 mm[Hg] CORNELIO WEAVER MD [facility] 08-24-2022 09:42-0500 Respiratory rate 16 /min CORNELIO WEAVER MD [facility] 08-24-2022 09:42-0500 Systolic Blood Pressure Non-Invasive 110 1 CORNELIO WEAVER MD [facility] 08-24-2022 09:27-0500 Body temperature 98.24 [degF] CORNELIO WEAVER MD [facility] 08-24-2022 09:27-0500 Heart rate 73 /min CORNELIO WEAVER MD [facility] 08-24-2022 09:27-0500 Mean blood pressure 72 mm[Hg] CORNELIO WEAVER MD [facility] 08-24-2022 09:25-0500 Respiratory Rate - Anes 3 br/min CORNELIO WEAVER MD [facility] 08-24-2022 09:20-0500 Respiratory Rate - Anes 12 br/min CORNELIO WEAVER MD [facility] 08-24-2022 09:15-0500 Respiratory Rate - Anes 10 br/min CORNELIO WEAVER MD [facility] 08-24-2022 07:34-0500 Body height 177.8 cm CORNELIO WEAVER MD [facility] 08-24-2022 07:34-0500 Body weight 156.9 kg CORNELIO WEAVER MD [facility] 08-24-2022 07:34-0500 Heart rate 77 /min CORNELIO WEAVER MD [facility] 06-21-2022 14:04-0400 Body height 177.[address] Tri Choudhury Work Phone: [facility] Work Phone: 06-21-2022 14:04-0400 Body mass index (BMI) [Ratio] 50.2 kg/m2 Dr. Tri Choudhury Work Phone: [facility] Work Phone: 06-21-2022 14:04-0400 Body temperature 97.9 [degF] Dr. Tri Choudhury Work Phone: [facility] Work Phone: 06-21-2022 14:04-0400 Body weight 158.[address] Tri Choudhury Work Phone: [facility] Work Phone: 06-21-2022 14:04-0400 Diastolic blood pressure 75 mm[Hg] Dr. Tri Choudhury Work Phone: [facility] Work Phone: 06-21-2022 14:04-0400 Heart rate 85 /min Dr. Tri Choudhury Work Phone: [facility] Work Phone: 06-21-2022 14:04-0400 Respiratory rate 16 /min Dr. Tri Choudhury Work Phone: [facility] Work Phone: 06-21-2022 14:04-0400 SaO2% (BldA) [Mass fraction] 94 % Dr. Tri Choudhury Work Phone: [facility] Work Phone: 06-21-2022 14:04-0400 Systolic blood pressure 141 mm[Hg] Dr. Tri Choudhury Work Phone: [facility] Work Phone: 06-16-2022 15:27-0400 Body mass index (BMI) [Ratio] 48.7 kg/m2 Dr. Tri Choudhury Work Phone: [facility] Work Phone: 06-16-2022 15:27-0400 Body temperature 98.2 [degF] Dr. Tri Choudhury Work Phone: [facility] Work Phone: 06-16-2022 15:27-0400 Body weight 154.[address] Tri Choudhury Work Phone: [facility] Work Phone: 06-16-2022 15:27-0400 Diastolic blood pressure 76 mm[Hg] Dr. Tri Choudhury Work Phone: [facility] Work Phone: 06-16-2022 15:27-0400 Heart rate 69 /min Dr. Tri Choudhury Work Phone: [facility] Work Phone: 06-16-2022 15:27-0400 Respiratory rate 16 /min Dr. Tri Choudhury Work Phone: [facility] Work Phone: 06-16-2022 15:27-0400 SaO2% (BldA) [Mass fraction] 97 % Dr. Tri Choudhury Work Phone: [facility] Work Phone: 06-16-2022 15:27-0400 Systolic blood pressure 127 mm[Hg] Dr. Tri Choudhury Work Phone: [facility] Work Phone: 06-05-2022 03:46-0400 Diastolic blood pressure 86 mm[Hg] Dr. Tri Choudhury Work Phone: [facility] Work Phone: 06-05-2022 03:46-0400 Heart rate 79 /min Dr. Tri Choudhury Work Phone: [facility] Work Phone: 06-05-2022 03:46-0400 Respiratory rate 18 /min Dr. Tri Choudhury Work Phone: [facility] Work Phone: 06-05-2022 03:46-0400 SaO2% (BldA) [Mass fraction] 97 % Dr. Tri Choudhury Work Phone: [facility] Work Phone: 06-05-2022 03:46-0400 Systolic blood pressure 144 mm[Hg] Dr. Tri Choudhury Work Phone: [facility] Work Phone: 06-05-2022 02:36-0400 Body temperature 98.3 [degF] Dr. Tri Choudhury Work Phone: [facility] Work Phone: 06-05-2022 00:18-0400 Body height 177.[address] Tri Choudhury Work Phone: [facility] Work Phone: 06-05-2022 00:18-0400 Body mass index (BMI) [Ratio] 48.7 kg/m2 Dr. Tri Choudhury Work Phone: [facility] Work Phone: 06-05-2022 00:18-0400 Body weight 154.[address] Tri Choudhury Work Phone: [facility] Work Phone: 06-01-2022 11:20-0400 Body temperature 97.7 [degF] CORNELIO WEAVER MD [facility] 06-01-2022 11:20-0400 Diastolic blood pressure 70 mm[Hg] CORNELIO WEAVER MD [facility] 06-01-2022 11:20-0400 Heart rate 78 /min CORNELIO WEAVER MD [facility] 06-01-2022 11:20-0400 Respiratory rate 18 /min CORNELIO WEAVER MD [facility] 06-01-2022 11:20-0400 Systolic blood pressure 130 mm[Hg] CORNELIO WEAVER MD [facility] 06-01-2022 11:01-0400 Body temperature 97.52 [degF] CORNELIO WEAVER MD [facility] 06-01-2022 11:01-0400 Diastolic blood pressure 76 mm[Hg] CORNELIO WEAVER MD [facility] 06-01-2022 11:01-0400 Heart rate 68 /min CORNELIO WEAVER MD [facility] 06-01-2022 11:01-0400 Mean blood pressure 96 mm[Hg] CORNELIO WEAVER MD [facility] 06-01-2022 11:01-0400 Reason For Taking VItal Signs CORNELIO WEAVER MD [facility] 06-01-2022 11:01-0400 Respiratory rate 16 /min CORNELIO WEAVER MD [facility] 06-01-2022 11:01-0400 Systolic blood pressure 137 mm[Hg] CORNELIO WEAVER MD [facility] 06-01-2022 10:28-0400 Body temperature 97.7 [degF] CORNELIO WEAVER MD [facility] 06-01-2022 10:28-0400 Diastolic Blood Pressure NBP 57 1 CORNELIO WEAVER MD [facility] 06-01-2022 10:28-0400 Heart rate 61 /min CORNELIO WEAVER MD [facility] 06-01-2022 10:28-0400 Mean blood pressure 69 mm[Hg] CORNELIO WEAVER MD [facility] 09-20-2022 10:28-0400 Respiratory rate 20 /min CORNELIO WEAVER MD [facility] 06-01-2022 10:28-0400 Systolic Blood Pressure NBP 111 1 CORNELIO WEAVER MD [facility] 06-01-2022 10:13-0400 Diastolic Blood Pressure NBP 60 1 CORNELIO WEAVER MD [facility] 06-01-2022 10:13-0400 Heart rate 64 /min CORNELIO WEAVER MD [facility] 06-01-2022 10:13-0400 Mean blood pressure 71 mm[Hg] CORNELIO WEAVER MD [facility] 06-01-2022 10:13-0400 Systolic Blood Pressure NBP 115 1 CORNELIO WEAVER MD [facility] 06-01-2022 09:58-0400 Body temperature 97.7 [degF] CORNELIO WEAVER MD [facility] 06-01-2022 09:58-0400 Diastolic Blood Pressure NBP 56 1 CORNELIO WEAVER MD [facility] 06-01-2022 09:58-0400 Mean blood pressure 66 mm[Hg] CORNELIO WEAVER MD [facility] 06-01-2022 09:58-0400 Systolic Blood Pressure NBP 97 1 CORNELIO WEAVER MD [facility] 06-01-2022 09:45-0400 Body temperature 97.59 [degF] CORNELIO WEAVER MD [facility] 06-01-2022 09:40-0400 Body temperature 97.57 [degF] CORNELIO WEAVER MD [facility] 06-01-2022 06:43-0400 Body height 175.3 cm CORNELIO WEAVER MD [facility] 06-01-2022 06:43-0400 Body weight 154.8 kg CORNELIO WEAVER MD [facility] 06-01-2022 06:43-0400 Diastolic blood pressure 69 mm[Hg] CORNELIO WEAVER MD [facility] 06-01-2022 06:43-0400 Heart rate 64 /min CORNELIO WEAVER MD [facility] 06-01-2022 06:43-0400 Mean blood pressure 92 mm[Hg] CORNELIO WEAVER MD [facility] 06-01-2022 06:43-0400 Systolic blood pressure 138 mm[Hg] CORNELIO WEAVER MD [facility] 05-25-2022 14:54-0400 Body height 175.3 cm Kole Mancia MD Work Phone: [facility] 05-25-2022 14:54-0400 Body temperature 98.1 [degF] Kole Mancia MD Work Phone: [facility] 05-25-2022 14:54-0400 Body weight 159.67 kg Kole Mancia MD Work Phone: [facility] 05-25-2022 14:54-0400 Diastolic blood pressure 66 mm[Hg] Kole Mancia MD Work Phone: [facility] 05-25-2022 14:54-0400 Heart rate 75 /min Kole Mancia MD Work Phone: [facility] 05-25-2022 14:54-0400 SaO2% (BldA) [Mass fraction] 99 % Kole Mancia MD Work Phone: [facility] 05-25-2022 14:54-0400 Systolic blood pressure 128 mm[Hg] Kole Mancia MD Work Phone: [facility] 05-25-2022 10:08-0400 Body height 172 cm CORNELIO WEAVER MD [facility] 05-25-2022 10:08-0400 Body temperature 97.34 [degF] CORNELIO WEAVER MD [facility] 05-25-2022 10:08-0400 Body weight 159.3 kg CORNELIO WEAVER MD [facility] 05-25-2022 10:08-0400 diastolic 78 mm[Hg] CORNELIO WEAVER MD [facility] 05-25-2022 10:08-0400 Heart rate 64 /min CORNELIO WEAVER MD [facility] 05-25-2022 10:08-0400 systolic 138 mm[Hg] CORNELIO WEAVER MD [facility] 04-25-2022 17:42-0400 Diastolic blood pressure 78 mm[Hg] Dr. Tri Choudhury Work Phone: [facility] Work Phone: 04-25-2022 17:42-0400 Heart rate 89 /min Dr. Tri Choudhury Work Phone: [facility] Work Phone: 04-25-2022 17:42-0400 Respiratory rate 15 /min Dr. Tri Choudhury Work Phone: [facility] Work Phone: 04-25-2022 17:42-0400 SaO2% (BldA) [Mass fraction] 98 % Dr. Tri Choudhury Work Phone: [facility] Work Phone: 04-25-2022 17:42-0400 Systolic blood pressure 143 mm[Hg] Dr. Tri Choudhury Work Phone: [facility] Work Phone: 04-25-2022 16:09-0400 Body height 177.[address] Tri Choudhury Work Phone: [facility] Work Phone: 04-25-2022 16:09-0400 Body mass index (BMI) [Ratio] 49.7 kg/m2 Dr. Tri Choudhury Work Phone: [facility] Work Phone: 04-25-2022 16:09-0400 Body temperature 97.7 [degF] Dr. Tri Choudhury Work Phone: [facility] Work Phone: 04-25-2022 16:09-0400 Body weight 157.[address] Tri Choudhury Work Phone: [facility] Work Phone: 04-01-2022 09:50-0400 Body temperature 96.62 [degF] CORNELIO WEAVER MD [facility] 04-01-2022 09:50-0400 Diastolic blood pressure 65 mm[Hg] CORNELIO WEAVER MD [facility] 04-01-2022 09:50-0400 Heart rate 58 /min CORNELIO WEAVER MD [facility] 04-01-2022 09:50-0400 Mean blood pressure 82 mm[Hg] CORNELIO WEAVER MD [facility] 04-01-2022 09:50-0400 Respiratory rate 18 /min CORNELIO WEAVER MD [facility] 04-01-2022 09:50-0400 Systolic blood pressure 117 mm[Hg] CORNELIO WEAVER MD [facility] 04-01-2022 09:32-0400 Body temperature 97.16 [degF] CORNELIO WEAVER MD [facility] 04-01-2022 09:32-0400 Diastolic Blood Pressure NBP 73 1 CORNELIO WEAVER MD [facility] 04-01-2022 09:32-0400 Heart rate 66 /min CORNELIO WEAVER MD [facility] 04-01-2022 09:32-0400 Mean blood pressure 88 mm[Hg] CORNELIO WEAVER MD [facility] 04-01-2022 09:32-0400 Respiratory rate 20 /min CORNELIO WEAVER MD [facility] 04-01-2022 09:32-0400 Systolic Blood Pressure NBP 144 1 CORNELIO WEAVER MD [facility] 04-01-2022 09:17-0400 Diastolic Blood Pressure NBP 69 1 CORNELIO WEAVER MD [facility] 04-01-2022 09:17-0400 Heart rate 68 /min CORNELIO WEAVER MD [facility] 04-01-2022 09:17-0400 Mean blood pressure 84 mm[Hg] CORNELIO WEAVER MD [facility] 04-01-2022 09:17-0400 Respiratory rate 20 /min CORNELIO WEAVER MD [facility] 04-01-2022 09:17-0400 Systolic Blood Pressure NBP 136 1 CORNELIO WEAVER MD [facility] 04-01-2022 09:02-0400 Body temperature 97.34 [degF] CORNELIO WEAVER MD [facility] 04-01-2022 09:02-0400 Diastolic Blood Pressure NBP 69 1 CORNELIO WEAVER MD [facility] 04-01-2022 09:02-0400 Heart rate 70 /min CORNELIO WEAVER MD [facility] 04-01-2022 09:02-0400 Mean blood pressure 86 mm[Hg] CORNELIO WEAVER MD [facility] 04-01-2022 09:02-0400 Systolic Blood Pressure NBP 145 1 CORNELIO WEAVER MD [facility] 04-01-2022 08:50-0400 Body temperature 96.24 [degF] CORNELIO WEAVER MD [facility] 04-01-2022 08:45-0400 Body temperature 96.4 [degF] CORNELIO WEAVER MD [facility] 04-01-2022 08:40-0400 Body temperature 96.55 [degF] CORNELIO WEAVER MD [facility] 04-01-2022 06:42-0400 Body height 175.3 cm CORNELIO WEAVER MD [facility] 04-01-2022 06:42-0400 Body weight 151.5 kg CORNELIO WEAVER MD [facility] 04-01-2022 06:42-0400 Diastolic blood pressure 76 mm[Hg] CORNELIO WEAVER MD [facility] 04-01-2022 06:42-0400 Heart rate 65 /min CORNELIO WEAVER MD [facility] 04-01-2022 06:42-0400 Mean blood pressure 93 mm[Hg] CORNELIO WEAVER MD [facility] 04-01-2022 06:42-0400 Systolic blood pressure 128 mm[Hg] CORNELIO WEAVER MD [facility] 03-31-2022 11:19-0400 Body height 176 cm CORNELIO WEAVER MD [facility] 03-31-2022 11:19-0400 Body temperature 98.06 [degF] CORNELIO WEAVER MD [facility] 03-31-2022 11:19-0400 Body weight 154.1 kg CORNELIO WEAVER MD [facility] 03-31-2022 11:19-0400 diastolic 68 mm[Hg] CORNELIO WEAVER MD [facility] 03-31-2022 11:19-0400 Heart rate 80 /min CORNELIO WEAVER MD [facility] 03-31-2022 11:19-0400 systolic 121 mm[Hg] CORNELIO WEAVER MD [facility] 03-22-2022 14:50-0400 Body height 177.8 cm Renetta Alex MD Work Phone: [facility] 03-22-2022 14:50-0400 Body temperature 97.59 [degF] Renetta Alex MD Work Phone: [facility] 03-22-2022 14:50-0400 Body weight 159.67 kg Renetta Alex MD Work Phone: [facility] 03-22-2022 14:50-0400 Diastolic blood pressure 78 mm[Hg] Renetta Alex MD Work Phone: [facility] 03-22-2022 14:50-0400 Heart rate 111 /min Renetta Alex MD Work Phone: [facility] 03-22-2022 14:50-0400 SaO2% (BldA) [Mass fraction] 96 % Renetta Alex MD Work Phone: [facility] 03-22-2022 14:50-0400 Systolic blood pressure 148 mm[Hg] Renetta Alex MD Work Phone: [facility] 03-18-2022 11:19-0400 Diastolic blood pressure 96 mm[Hg] Dr. Tri Choudhury Work Phone: [facility] Work Phone: 03-18-2022 11:19-0400 Systolic blood pressure 186 mm[Hg] Dr. Tri Choudhury Work Phone: [facility] Work Phone: 03-18-2022 09:30-0400 SaO2% (BldA) [Mass fraction] 95 % Dr. Tri Choudhury Work Phone: [facility] Work Phone: 03-18-2022 09:14-0400 Body temperature 98.3 [degF] Dr. Tri Choudhury Work Phone: [facility] Work Phone: 03-18-2022 09:14-0400 Heart rate 94 /min Dr. Tri Choudhury Work Phone: [facility] Work Phone: 03-18-2022 09:14-0400 Respiratory rate 20 /min Dr. Tri Choudhury Work Phone: [facility] Work Phone: 03-18-2022 06:35-0400 Inhaled oxygen flow rate 3 L/min Dr. Tri Choudhury Work Phone: [facility] Work Phone: 03-16-2022 12:00-0400 Body height 177.[address] Tri Choudhury Work Phone: [facility] Work Phone: 03-16-2022 12:00-0400 Body weight 158.[address] Tri Choudhury Work Phone: [facility] Work Phone: 03-13-2022 01:48-0400 Body mass index (BMI) [Ratio] 50.2 kg/m2 Dr. Tri Choudhury Work Phone: [facility] Work Phone: 03-13-2022 00:49-0400 Body temperature 97.4 [degF] Dr. Tri Choudhury Work Phone: [facility] Work Phone: 03-13-2022 00:49-0400 Diastolic blood pressure 74 mm[Hg] Dr. Tri Choudhury Work Phone: [facility] Work Phone: 03-13-2022 00:49-0400 Heart rate 791 /min Dr. Tri Choudhury Work Phone: [facility] Work Phone: 03-13-2022 00:49-0400 Respiratory rate 16 /min Dr. Tri Choudhury Work Phone: [facility] Work Phone: 03-13-2022 00:49-0400 SaO2% (BldA) [Mass fraction] 99 % Dr. Tri Choudhury Work Phone: [facility] Work Phone: 03-13-2022 00:49-0400 Systolic blood pressure 136 mm[Hg] Dr. Tri Choudhury Work Phone: [facility] Work Phone: 03-12-2022 20:30-0400 Body height 177.[address] Tri Choudhury Work Phone: [facility] Work Phone: 03-12-2022 20:30-0400 Body mass index (BMI) [Ratio] 49.9 kg/m2 Dr. Tri Choudhury Work Phone: [facility] Work Phone: 03-12-2022 20:30-0400 Body weight 157.[address] Tri Choudhury Work Phone: [facility] Work Phone: 03-12-2022 13:16-0400 Body temperature 98 [degF] Dr. Tri Choudhury Work Phone: [facility] Work Phone: 03-12-2022 13:16-0400 Diastolic blood pressure 70 mm[Hg] Dr. Tri Choudhury Work Phone: [facility] Work Phone: 03-12-2022 13:16-0400 Heart rate 78 /min Dr. Tri Choudhury Work Phone: [facility] Work Phone: 03-12-2022 13:16-0400 Respiratory rate 16 /min Dr. Tri Choudhury Work Phone: [facility] Work Phone: 03-12-2022 13:16-0400 SaO2% (BldA) [Mass fraction] 98 % Dr. Tri Choudhury Work Phone: [facility] Work Phone: 03-12-2022 13:16-0400 Systolic blood pressure 132 mm[Hg] Dr. Tri Choudhury Work Phone: [facility] Work Phone: 03-12-2022 10:02-0400 Body height 177.[address] Tri Choudhury Work Phone: [facility] Work Phone: 03-12-2022 10:02-0400 Body mass index (BMI) [Ratio] 49.9 kg/m2 Dr. Tri Choudhury Work Phone: [facility] Work Phone: 03-12-2022 10:02-0400 Body weight 157.[address] Tri Choudhury Work Phone: [facility] Work Phone: 03-10-2022 14:50-0400 Body height 177.8 cm Renetta Alex MD Work Phone: [facility] 03-10-2022 14:50-0400 Body temperature 98.01 [degF] Renetta Alex MD Work Phone: [facility] 03-10-2022 14:50-0400 Body weight 158.76 kg Renetta Alex MD Work Phone: [facility] 03-10-2022 14:50-0400 Diastolic blood pressure 72 mm[Hg] Renetta Alex MD Work Phone: [facility] 03-10-2022 14:50-0400 Heart rate 87 /min Renetta Alex MD Work Phone: [facility] 03-10-2022 14:50-0400 SaO2% (BldA) [Mass fraction] 98 % Renetta Alex MD Work Phone: [facility] 03-10-2022 14:50-0400 Systolic blood pressure 144 mm[Hg] Renetta Alex MD Work Phone: [facility] 03-08-2022 13:55-0400 Body mass index (BMI) [Ratio] 49.5 kg/m2 Dr. Tri Choudhury Work Phone: [facility] Work Phone: 03-08-2022 13:55-0400 Body temperature 98 [degF] Dr. Tri Choudhury Work Phone: [facility] Work Phone: 03-08-2022 13:55-0400 Body weight 156.[address] Tri Choudhury Work Phone: [facility] Work Phone: 03-08-2022 13:55-0400 Diastolic blood pressure 78 mm[Hg] Dr. Tri Choudhury Work Phone: [facility] Work Phone: 03-08-2022 13:55-0400 Heart rate 77 /min Dr. Tri Choudhury Work Phone: [facility] Work Phone: 03-08-2022 13:55-0400 Respiratory rate 18 /min Dr. Tri Choudhury Work Phone: [facility] Work Phone: 03-08-2022 13:55-0400 SaO2% (BldA) [Mass fraction] 95 % Dr. Tri Choudhury Work Phone: [facility] Work Phone: 03-08-2022 13:55-0400 Systolic blood pressure 147 mm[Hg] Dr. Tri Choudhury Work Phone: [facility] Work Phone: 02-24-2022 14:23-0400 Body height 177.8 cm Renetta Alex MD Work Phone: [facility] 02-24-2022 14:23-0400 Body temperature 98.4 [degF] Renetta Alex MD Work Phone: [facility] 02-24-2022 14:23-0400 Body weight 158.76 kg Renetta lAex MD Work Phone: [facility] 02-24-2022 14:23-0400 Diastolic blood pressure 87 mm[Hg] Renetta Alex MD Work Phone: [facility] 02-24-2022 14:23-0400 Heart rate 78 /min Renetta Alex MD Work Phone: [facility] 02-24-2022 14:23-0400 Systolic blood pressure 151 mm[Hg] Renetta Alex MD Work Phone: [facility] 02-20-2022 10:00-0400 Body temperature 98.6 [degF] Dr. Tri Choudhury Work Phone: [facility] Work Phone: 02-20-2022 10:00-0400 Diastolic blood pressure 69 mm[Hg] Dr. Tri Choudhury Work Phone: [facility] Work Phone: 02-20-2022 10:00-0400 Heart rate 67 /min Dr. Tri Choudhury Work Phone: [facility] Work Phone: 02-20-2022 10:00-0400 Respiratory rate 18 /min Dr. Tri Choudhury Work Phone: [facility] Work Phone: 02-20-2022 10:00-0400 SaO2% (BldA) [Mass fraction] 95 % Dr. Tri Choudhury Work Phone: [facility] Work Phone: 02-20-2022 10:00-0400 Systolic blood pressure 137 mm[Hg] Dr. Tri Choudhury Work Phone: [facility] Work Phone: 02-19-2022 12:56-0400 Body height 177.[address] Tri Choudhury Work Phone: [facility] Work Phone: 02-19-2022 12:56-0400 Body weight 158.[address] Tri Choudhury Work Phone: [facility] Work Phone: 02-18-2022 23:08-0400 Heart rate 75 /min Dr. Tri Choudhury Work Phone: [facility] Work Phone: 02-18-2022 23:00-0400 Body temperature 98.8 [degF] Dr. Tri Choudhury Work Phone: [facility] Work Phone: 02-18-2022 23:00-0400 Diastolic blood pressure 90 mm[Hg] Dr. Tri Choudhury Work Phone: [facility] Work Phone: 02-18-2022 23:00-0400 Respiratory rate 20 /min Dr. Tri Choudhury Work Phone: [facility] Work Phone: 02-18-2022 23:00-0400 SaO2% (BldA) [Mass fraction] 94 % Dr. Tri Choudhury Work Phone: [facility] Work Phone: 02-18-2022 23:00-0400 Systolic blood pressure 164 mm[Hg] Dr. Tri Choudhury Work Phone: [facility] Work Phone: 02-18-2022 22:00-0400 Inhaled oxygen flow rate 2 L/min Dr. Tri Choudhury Work Phone: [facility] Work Phone: 02-18-2022 07:23-0400 Body height 177.[address] Tri Choudhury Work Phone: [facility] Work Phone: 02-18-2022 07:23-0400 Body mass index (BMI) [Ratio] 50.2 kg/m2 Dr. Tri Choudhury Work Phone: [facility] Work Phone: 02-18-2022 07:23-0400 Body weight 158.[address] Tri Choudhury Work Phone: [facility] Work Phone: 02-17-2022 13:14-0400 Body temperature 97.9 [degF] [facility] Work Phone: 02-17-2022 13:14-0400 Diastolic blood pressure 86 mm[Hg] [facility] Work Phone: 02-17-2022 13:14-0400 Heart rate 60 /min [facility] Work Phone: 02-17-2022 13:14-0400 Respiratory rate 15 /min [facility] Work Phone: 02-17-2022 13:14-0400 SaO2% (BldA) [Mass fraction] 95 % [facility] Work Phone: 02-17-2022 13:14-0400 Systolic blood pressure 168 mm[Hg] [facility] Work Phone: 02-17-2022 07:32-0400 Body height 177.[address] [facility] Work Phone: 02-17-2022 07:32-0400 Body mass index (BMI) [Ratio] 47.3 kg/m2 [facility] Work Phone: 02-17-2022 07:32-0400 Body weight 149.[address] [facility] Work Phone: Encounters Encounter Date Encounter Type Care Provider Facility Start: 02-12-2025 [facility] Start: 01-07-2025 End: 01-09-2025 ambulatory [facility] Facility:[facility] Start: 12-04-2024 End: 12-10-[address] Tri Choudhury MD -[facility] [employer] Work Phone: Start: 12-04-2024 End: 12-10-[address] Tri Choudhury MD Work Phone: [facility] Work Phone: Start: 11-08-2024 End: 11-09-[address] Tri Choudhury MD -[employer] [facility] Work Phone: Start: 11-08-2024 End: 11-09-2024 [facility] Start: 10-10-2024 End: 10-10-2024 Patient encounter procedure [employer] [facility] Work Phone: Start: 10-10-2024 End: 10-10-2024 ambulatory Tri Nvatul Facility:[facility] [facility] [place] Start: 10-04-2024 End: 10-12-[address] Tri Choudhury MD -Nutritional Servi bobo Work Phone: Start: 10-04-2024 End: 10-12-2024 ambulatory Tri Ramon Facility:[facility] Start: 08-07-2024 End: 08-11-2024 ambulatory [facility] Facility:[facility] Start: 07-11-2024 End: 07-12-2024 ambulatory [facility] Facility:[facility] Start: 06-11-2024 End: 06-11-2024 ambulatory [facility] Facility:[facility] Start: 03-21-2024 End: 04-11-2024 [facility] Start: 02-27-2024 End: 03-11-2024 ambulatory [facility] Facility:[facility] Start: 12-13-2023 End: 12-13-[address] Tri Choudhury Work Phone: [facility] Work Phone: Start: 12-13-2023 End: 12-13-[address] Tri Choudhury Work Phone: [facility]-Radiology, [facility] Work Phone: Start: 10-06-2023 End: 10-06-[address] Tri Choudhury Work Phone: [facility]-Pulmonary Medicine [facility] Work Phone: Start: 09-29-2023 End: 09-29-[address] Tri Choudhury Work Phone: [facility]-Ultrasound, [facility] Work Phone: Start: 04-19-2023 ambulatory MD PAULA QUEZADA MD Fac ility:A Start: 04-05-2023 End: 04-05-2023 ambulatory MD PAULA QUEZADA MD Facility:A Start: 03-31-2023 End: 04-01-2023 ambulatory MD PAULA QUEZADA MD Facility:A Start: 03-31-2023 End: 03-31-[address] [facility] PAULA QUEZADA MD [facility] Start: 03-25-2023 Chart Update Tri nolen Work Phone: [facility]-Wzzjhbf[facility] 4300 Work Phone: Start: 03-18-2023 Postop follow up vis it related to original px Tri Choudhury Work Phone: GC-Ulggrol[facility] 4300 Work Phone: Start: 03-18-[address] Tri Choudhury Facility:[id number] Start: 03-08-[address] Tri Choudhury Facility:[id number] Start: 03-03-2023 ambulatory TRI CHOUDHURY Facility: B Start: 03-03-2023 End: 06-02-2023 Physical therapy management TRI CHOUDHURY [facility] Start: 03-02-2023 Chart Update Tri nolen Work Phone: XN-Avhuxep-Cqrsbfy 2100 Work Phone: Start: 02-24-2023 Chart Update Tri nolen Work Phone: [facility] 4[facility] Work Phone: Start: 02-24-2023 End: 02-27-2023 Evaluation and management of inpatient Fritz Rivera 6 Rm [id number] Start: 02-23-2023 End: 02-24-2023 ambulatory NANO SAMUEL APRN-MICHELLE Facility:A Start: 02-23-2023 End: 02-23-2023 Patient encounter procedure NANO SAMUEL APRN-PHOTO PRODUCER [facility] Start: 02-22-[address] Tri Choudhury Facility:[facility] Start: 02-22-2023 Encounter for blood typing Dr. Chavez Richardson [facility] Start: 02-22-2023 Encounter for preprocedural cardiovascular examination Dr. Chavez Richardson [facility] Start: 02-10-2023 AUDIT Referring Prov ider Unknown [facility] 4[facility] Work Phone: Start: 02-02-[address] Cornelio Weaver Facility:[id number] Start: 01-10-2023 End: 01-15-2023 Evaluation and management of inpatient DR LILLY DELGADO MD Facility:A Start: 01-10-2023 End: 01-15-2023 Evaluation and management of inpatient DR LILLY DELGADO MD [facility] Start: 01-10-2023 End: 01-10-2023 Emergency department patient visit LATOYA HERRERA MD Facility:B Start: 01-09-2023 End: 01-10-2023 Emergency department patient visit LATOYA HERRERA MD [facility] Start: 11-07-2022 End: 11-07-2022 Emergency department patient visit KELSI GODOY MD Facility:B Start: 11-04-2022 End: 11-04-2022 ambulatory [facility] Work Phone: Start: 11-04-2022 End: 11-04-2022 Discharged Recurring [facility]-Physical Therapy Start: 08-24-2022 End: 08-24-2022 ambulatory CORNELIO WEAVER MD Facility:A Start: 08-24-2022 End: 08-24-2022 SAME DAY STAY CORNELIO WEAVER MD [facility] Start: 08-18-2022 End: 08-18-[address] Tri Choudhury Work Phone: [facility] Work Phone: Start: 08-18-2022 End: 08-18-[address] Tri Choudhury Work Phone: [facility]-Laboratory Start: 06-21-2022 End: 06-21-[address] Tri Choudhury Work Phone: [facility]-Pulmonary Medicine [facility] Start: 06-16-2022 End: 06-16-[address] Tri Choudhury Work Phone: [facility] Start: 06-05-2022 End: 06-05-2022 Emergency department patient visit Dr. Tri Choudhury Work Phone: [facility]-Emergency Department Start: 06-01-2022 End: 06-01-2022 ambulatory CORNELIO WEAVER MD Facility:A Start: 06-01-2022 End: 06-01-2022 SAME DAY STAY CORNELIO WEAVER MD [facility] Start: 05-25-2022 End: 05-25-2022 ambulatory KOLE MANCIA Facility:[facility] Start: 05-25-2022 End: 05-25-2022 Patient encounter procedure Kole Mancia MD Work Phone: General Surgery Comment on above: Aftercare (Primary D x); Abnormal biliary HIDA scan Start: 05-25-2022 Telephone encounter Renetta Shelby MD Work Phone: General Surgery Comment on above: Patient Question Start: 05-25-2022 End: 05-26-2022 ambulatory CORNELIO WEAVER MD Facility:A Start: 05-25-2022 End: 05-25-2022 Admission to establishment CORNELIO WEAVER MD [facility] Start: 05-20-2022 End: 05-20-2022 ambulatory CORNELIO WEAVER Facility:[facility] Start: 05-20-2022 End: 05-20-2022 Subsequent hospital visit by physician [facility] (I-Stat) Work Phone: Cat Scan Comment on above: Perforation of gallb ladder [K82.2] Start: 05-07-2022 End: 05-07-[address] Tri Choudhury Work Phone: [facility] Work Phone: Start: 05-07-2022 End: 05-07-[address] Tri Choudhury Work Phone: [facility]-Laboratory Start: 04-28-2022 Telephone encounter Renetta Shelby MD Work Phone: General Surgery Comment on above: Patient Update Start: 04-26-2022 Non-patient / Non-visit Dr. Lee Choudhury Work Phone: [facility] Start: 04-26-2022 End: 04-26-[address] Tri Choudhury Work Phone: [facility]-Cardiovascul ar Services Start: 04-25-2022 End: 04-25-2022 Emergency department patient visit Dr. Tri Choudhury Work Phone: [facility]-Emergency Department Start: 04-19-2022 Telephone encounter Renetta Shelby MD Work Phone: General Surgery Comment on above: Patient Update Start: 04-12-2022 Telephone encounter Renetta Shelby MD Work Phone: General Surgery Comment on above: Patient Update Start: 04-05-2022 Telephone encounter Renetta Shelby MD Work Phone: General Surgery Comment on above: Patient Update Start: 04-02-2022 Telephone encounter Renetta Shelby MD Work Phone: General Surgery Comment on above: Patient Question (pa in in mid abd) Start: 04-01-2022 End: 04-01-2022 SAME DAY STAY CORNELIO WEAVER MD [facility] Start: 03-31-2022 End: 03-31-[address] [facility] CORNELIO WEAVER MD [facility] Start: 03-29-2022 Telephone encounter Renetta Shelby MD Work Phone: General Surgery Comment on above: Schedule Evaluation Referral Request ([facility]) Start: 03-24-2022 End: 03-24-[address] Tri Choudhury Work Phone: [facility] Start: 03-23-2022 Telephone encounter Renetta Shelby MD Work Phone: General Surgery Comment on above: Patient Update Start: 03-22-2022 End: 03-22-2022 ambulatory RENETTA ALEX Facility:[facility] Start: 03-22-2022 End: 03-22-2022 Patient encounter procedure Renetta Alex MD Work Phone: General Surgery Comment on above: Status post cholecys tectomy (Primary Dx) Start: 03-18-2022 Non-patient / Non-visit Dr. Lee Choudhury Work Phone: [facility] Start: 03-17-2022 Non-patient / Non-visit Dr. Lee Choudhury Work Phone: [facility] Start: 03-16-2022 Non-patient / Non-visit Dr. Lee Choudhury Work Phone: [facility] Start: 03-13-2022 End: 03-18-2022 Evaluation and management of inpatient Dr. Tri Choudhury Work Phone: [facility]-Medical Surgical 3 Start: 03-12-2022 Non-patient / Non-visit Dr. Lee Choudhury Work Phone: [facility] Start: 03-12-2022 End: 03-12-2022 Admission to same day surgery center Dr. Tri Choudhury Work Phone: [facility]-Endoscopy Start: 03-10-2022 End: 03-10-2022 ambulatory RENETTA ALEX Facility:[facility] Start: 03-10-2022 End: 03-10-2022 Patient encounter procedure Renetta Alex MD Work Phone: General Surgery Comment on above: Status post cholecys tectomy (Primary Dx) Start: 03-08-2022 End: 03-08-[address] Tri Choudhury Work Phone: [facility] Start: 03-04-2022 End: 03-04-2022 ambulatory RENETTA ALEX Facility:[facility] Start: 03-04-2022 End: 03-04-2022 Subsequent hospital visit by physician [facility] Work Phone: Nuclear Medicine Comment on above: Status post cholecys tectomy [Z90.49] Start: 03-03-2022 End: 03-03-2022 ambulatory RENETTA ALEX Facility:[facility] Start: 03-03-2022 End: 03-03-2022 Nursing evaluation of patient and report Nurse Antoinette [facility] Work Phone: General Surgery Comment on above: Status post cholecys tectomy (Primary Dx) Start: 03-03-2022 Telephone encounter Renetta Shelby MD Work Phone: General Surgery Comment on above: Patient Question Patient Update Start: 02-27-2022 End: 02-27-[address] Tri Choudhury Work Phone: [facility] Start: 02-24-2022 End: 02-24-2022 ambulatory RENETTA ALEX Facility:[facility] Start: 02-24-2022 End: 02-24-2022 Patient encounter procedure Renetta Alex MD Work Phone: General Surgery Comment on above: Status post cholecys tectomy (Primary Dx); Bile leak; Morbid obesity (HCC) Start: 02-20-2022 Non-patient / Non-visit Dr. Lee Choudhury Work Phone: [facility] Start: 02-19-2022 Non-patient / Non-visit Dr. Lee Choudhury Work Phone: [facility] Start: 02-18-2022 End: 02-20-2022 Evaluation and management of inpatient Dr. Tri Choudhury Work Phone: [facility] Start: 02-18-2022 Non-patient / Non-visit Dr. Lee Choudhury Work Phone: [facility] Start: 02-17-2022 Evaluation and manag ement of inpatient [facility] Start: 02-17-2022 Non-patient / Non-visit Dr. Lee Choudhury Work Phone: [facility] Start: 02-16-2022 End: 02-16-2022 Patient encounter procedure [facility] Start: 11-05-2019 End: 11-05-2019 Patient encounter procedure [facility] Start: 06-29-2019 End: 06-29-[address] [facility] Preoperative state Tri leo Work Phone: [facility] 4306 Work Phone: Procedures Date Procedure Procedure Detail Performing Clinician Start: 12-13-2023 X-ray of lumbosacral spine Dr. Tri villa Work Phone: Start: 09-29-[address] Tri villa Work Phone: Start: 02-22-[address] Tri Choudhury Comment on above: Performed By: #### T+S ####[id number] [place] [address] Start: 12-11-2022 Biliary stent (physical object) PAULA CHRISTENSEN MD Start: 06-05-2022 Computed tomography of abdomen and pelvis with intravenous contrast Dr. Tri Choudhury Work Phone: Start: 05-20-2022 Ct abdomen w/contrast material [facility] Start: 05-13-2022 Biliary stent (physical object) CORNELIO JEAN-BAPTISTE MD Comment on above: Replaced Start: 03-12-2022 Computed tomography of abdomen and pelvis with intravenous contrast Dr. Tri Choudhury Work Phone: Start: 03-12-2022 End: 03-12-[address] Tri Choudhury Work Phone: Start: 03-12-[address] Tri Choudhury Work Phone: Start: 03-04-2022 Hepatobiliary syst imaging including gallbladder Renetta Alex MD Work Phone: Start: 02-27-[address] Tri Choudhury Work Phone: Start: 02-18-2022 Total cholecystectomy and exploration of common bile duct Dr. Tri Choudhury Work Phone: Start: 02-17-2022 US scan of gallbladder Start: 02-17-2022 Computed tomography of abdomen and pelvis with intravenous contrast Start: 02-10-2022 Cholecystectomy PAULA QUEZADA MD Start: 09-12-2021 Cholecystectomy CORNELIO WEAVER MD Start: 09-12-2021 Endoscopic retrograde cholangiopancreatography CORNELIO WEAVER MD Start: 09-12-1990 Liver structure (body structure) CORNELIO WEAVER MD Comment on above: liver laceration Start: 09-12-1967 Traumatic injury (disorder) CORNELIO WEAVER MD Comment on above: as a child fell in [facility] iple surgeries Arthroscopic trimmin g of meniscus CORNELIO WEAVER MD Comment on above: right Cholecystectomy Referring Provider Unknown Colonoscopy CORNELIO WEAVER MD Genus Meniscus (organism) JOE WEAVER MD Comment on above: knee right knee History of cholecystectomy Statu s post cholecystectomy Dr. Tri Choudhury Work Phone: History of cholecystectomy Statu s post cholecystectomy Renetta Alex MD Work Phone: History of cholecystectomy Statu s post cholecystectomy Nurse Gens [facility] Work Phone: History of cholecystectomy Statu s post cholecystectomy [facility] Work Phone: History of cholecystectomy Statu s post cholecystectomy Renetta Alex MD Work Phone: History of cholecystectomy Statu s post cholecystectomy Renetta Alex MD Work Phone: Repair of musculoten dinous cuff of shoulder CORNELIO WEAVER MD Comment on above: bilateral Repair of musculoten dinous cuff of shoulder Referring Provider Unknown Rotator cuff includi ng muscles and tendons (body structure) CORNELIO WEAVER MD Comment on above: bilat Tonsillectomy and adenoidectomy CORNELIO WEAVER MD Tonsillectomy and adenoidectomy Referring Provider Unknown Plan of Treatment Date Care Activity Detail Author Start: 04-01-2023 FUV, Provider: Chavez Richardson, Status: Pen, Time: 10:15 AM FUV, Provider: Chavez Richardson, Status: Pen, Time: 10:15 AM HQ-Dodnkhg-Lavxq in [facility] 4309 Work Phone: Start: 03-08-2023 Patient encounter procedure [facility] Surgery [facility] Start: 03-08-2023 POV, Provider: Chavez Richardson, Status: Pen, Time: 10:30 AM POV, Provider: Chavez Richardson, Status: Pen, Time: 10:30 AM OL-Ewtgaei-Okzxf ll 2100 Work Phone: Start: 02-25-2023 End: 02-26-2024 [facility] Start: 02-25-2023 End: 02-27-2023 Ketorolac Injectable 15 mg IntraVenous Push Every 6 Hours PRN ; (TORADOL)DOSE = 15 mg IntraVenous Push Every 6 HoursStop After 10 Doses Start: 25-Feb-2023 End: 27-Feb-2023 Ordered: 25-Feb-2023 Justa Blackman Intent [facility] Start: 02-24-2023 End: 02-25-2024 Sodium Chloride 0.9% Injectable Flush Peripheral Line ; via Peripheral LineVolume = 10 mL IntraVenous Flush Every 8 Hours and as Needed Start: 24-Feb-2023 End: 24-Feb-2024 Ordered: 24-Feb-2023 Dmitry Norris Intent [facility] Start: 02-24-2023 End: 02-25-2024 Naloxone Injectable 0.4 mg IntraVenous Push Once ; (NARCAN)DOSE = 0.2 mg IntraVenous Push Once, PRN patient is unarousable, and respiratory rate lessClinician Notes: HOLD PAPER STACKER Infusion and notify H.O. immediately Start: 24-Feb-2023 End: 24-Feb-2024 Ordered: 24-Feb-2023 Dmitry Norris Intent Comments: HOLD PAPER STACKER Infusion and notify H.O. immediately [facility] Comment on above: HOLD PAPER STACKER Infusion and notify H.O. immedi ately Start: 02-24-2023 End: 02-25-2024 Ropivacaine 0.2%/ Ambit Pump 500 mL . ; SolutionPeripheral Nerve FLOW RATE = 6 mL/hrClinician Notes: Dispense premix bag for use with Ambit pump only. Start: 24-Feb-2023 End: 24-Feb-2024 Ordered: 24-Feb-2023 Rajat Armendariz Intent Comments: Dispense premix bag for use with Ambit pump only. [facility] Comment on above: Dispense premix bag for use with Ambit p ump only. Start: 02-24-2023 [facility] Chavez Richardson, Status: Pen, Time: 8:00 AM [facility], Provider: Chavez Richardson, Status: Pen, Time: 8:00 AM PJ-Vtvwzat-Yxcgh in [facility] 4300 Work Phone: Start: 05-13-2022 Influenza vaccination [facility] Start: 04-25-2022 US.doppler Lower extremity vein [facility] Work Phone: Start: 04-25-2022 [facility] Work Phone: Start: 03-18-2022 Patient discharge [facility] Work Phone: Start: 03-16-2022 Consultation [facility] Work Phone: Start: 03-13-2022 Lipase measurement [facility] Work Phone: Start: 03-13-2022 Application of intermittent pneumatic compression device [facility] Work Phone: Start: 03-13-2022 Following clinical pathway protocol [facility] Work Phone: Start: 03-13-2022 Admission procedure [facility] Work Phone: Start: 03-13-2022 Maintenance of drainage tube [facility] Work Phone: Start: 03-13-2022 Patient referral to dietitian [facility] Work Phone: Start: 03-12-2022 Ercp stent placement biliary/pancreatic duct ERCP DUCT STENT PLACEMENT [facility] Work Phone: Start: 03-12-2022 Patient discharge [facility] Work Phone: Start: 02-20-2022 Patient discharge [facility] Work Phone: Start: 02-19-2022 Referral to occupational therapist [facility] Work Phone: Start: 02-19-2022 Referral to service [facility] Work Phone: Start: 02-18-2022 Admission procedure [facility] Work Phone: Start: 02-18-2022 Total cholecystectomy and exploration of common bile duct Laparoscopic, Cholecystectomy with IOC (Not Applicable) [facility] Work Phone: Start: 02-17-2022 [facility] Work Phone: Start: 02-17-2022 Following clinical pathway protocol [facility] Work Phone: Start: 02-17-2022 Incentive spirometry [facility] Work Phone: Start: 02-17-2022 Admission procedure [facility] Work Phone: Start: 02-17-2022 Application of intermittent pneumatic compression device [facility] Work Phone: Start: 02-17-2022 [facility] Work Phone: Start: 2015 PROSTATE CANCER SCREENING DISCUSSION PROSTATE CANCER SCREENING DISCUSSION [facility] Start: 2010 SHINGRIX VACCINE (1 of 2) SHINGRIX VACCINE (1 of 2) [facility] Start: 2005 COLOGUARD (FIT-DNA) COLOGUARD (FIT-DNA) [facility] Start: 2005 Colonoscopy COLONOSCOPY [facility] Start: 2005 COLORECTAL CANCER SCREENING COLORECTAL CANCER SCREENING [facility] Start: [address] COLONOGRAPHY [facility] Start: 2005 DIABETES SCREEN DIABETES SCREEN [facility] Start: 2005 FECAL OCCULT BLOOD FECAL OCCULT BLOOD [facility] Start: 2005 SIGMOIDOSCOPY SIGMOIDOSCOPY [facility] Start: 1995 LIPID SCREEN LIPID SCREEN [facility] Start: 1979 Urine microalbumin profile DTAP,TDAP,TD (1 - Tdap) [facility] Start: 1978 HEPATITIS C SCREENING HEPATITIS C SCREENING [facility] Start: 1978 HIV SCREENING HIV SCREENING [facility] Start: 1972 Adult depression screening assessment DEPRESSION SCREENING [facility] Start: 1965 COVID-19 VACCINE (#1) COVID-19 VACCINE (#1) [facility] Start: 03-24-1961 COVID-19 VACCINE (#1) COVID-19 VACCINE (#1) [facility] Endoscopic retrograd e cholangiopancreatography [facility] Work Phone: End: 03-26-2023 Hepatobiliary syst imaging including gallbladder [facility] HEPATOBILIARY WO RX Radiology Routine Status post cholecystectomy 1 Occurrences starting 02/24/2022 until 03/26/2023 [facility] Work Phone: Comment on above: 1 Occurrences starting 02/24/2022 until 03/26/2023 Lipase measurement [facility] Work Phone: Patient Education [facility] Work Phone: Patient referral [facility] Work Phone: [facility] Payers Date Payer Category Payer Self-pay [id number] 2022 Unknown [id number] 2019 Unknown [id number] 2019 Unknown MMO MMO [employer] [id number] 2019-Present [phone] [address] [place] [address] PPO [id number] 2019 Unknown [id number] [id number] 2016 Private Health Insurance [id number] 1960 Unknown [id number] 2.16.840.1.011800.3.579.2.6 51 1960 Unknown [id number] 2.16.840.1.258532.3.579.2.3 56 1960 Unknown [id number] 2.16.840.1.239993.3.579.2.3 56 1960 Unknown [id number] 2.16.840.1.547343.3.579.2.3 56 1960 Unknown [id number] 2.16.840.1.447398.3.579.2.3 56 1960 Unknown [id number] 2.16.840.1.074161.3.579.2.3 56 1960 Unknown [id number] 2.16.840.1.941435.3.579.2.6 27 1960 Unknown [id number] 2.16.840.1.424408.3.579.2.6 27 1960 Unknown [id number] 2.16.840.1.107026.3.579.2.6 27 1960 Unknown [id number] 2.16.840.1.465597.3.579.2.6 27 1960 Unknown [id number] 2.16.840.1.544898.3.579.2.6 27 1960 Unknown [id number] 2.16.840.1.584743.3.579.2.6 27 1960 Unknown [id number] 2.16.840.1.457348.3.579.2.6 27 1960 Unknown [id number] 2.16.840.1.446402.3.579.2.6 27 1960 Unknown [id number] 2.16.840.1.797565.3.579.2.6 27 1960 Unknown [id number] 2.16.840.1.175518.3.579.2.6 27 1960 Unknown [id number] 2.16.840.1.081766.3.579.2.6 27 1960 Unknown [id number] 2.16.840.1.273328.3.579.2.6 27 Unknown [id number] 2.16.840.1.448579.3.579.2.4 62 Unknown [id number] 2.16.840.1.550926.3.579.2.4 62 Unknown [id number] 2.16.840.1.788655.3.579.2.4 62 Unknown [id number] 2.16.840.1.040981.3.579.2.4 62 Unknown [id number] 2.16.840.1.239500.3.579.2.4 62 Unknown [id number] 2.16.840.1.621007.3.579.2.4 62 Unknown [id number] 2.16.840.1.499924.3.579.2.4 62 Unknown [id number] 2.16.840.1.135364.3.579.2.4 62 Unknown [id number] 2.16.840.1.221366.3.579.2.4 62 Unknown [id number] 2.16.840.1.939736.3.579.2.4 62 Unknown [id number] 2.16.840.1.808142.3.579.2.4 62 Social History Date Type Detail Facility Start: 02-17-2022 End: 10-06-2023 Tobacco smoking status MDIS Unknown if ever smoked [facility] Start: 1960 Sex Assigned At Male [facility] Start: 02-24-2022 End: 10-06-2023 Tobacco smoking status NHIS Never smoked tobacco [facility] Start: 02-24-2022 End: 05-25-2022 Tobacco use and exposure Smokeless tobacco non-user [facility] Start: 1960 Sex Assigned At Not on file [facility] Start: 02-14-2022 End: 05-25-2022 Exposure to SARS-CoV-2 (event) Not sure [facility] Start: 02-21-2022 End: 03-03-2022 Exposure to SARS-CoV-2 (event) Unable to assess [facility] Work Phone: Start: 03-10-2022 End: 05-25-2022 Alcohol intake Lifetime non-drinker (finding) [facility] Start: 03-10-2022 History SDOH Alcohol Frequency 1 [facility] Tobacco smoking status Smoker (finding) A [facility] Sex Assigned At Sex [facility] Never a smoker Never a smoker [facility] 4305 Work Phone: Start: 12-11-2024 Sex Male (finding) [facility] Medical Equipment Procedure Code Equipment Code Equipment Origin al Text Equipment Identifier Dates Total cholecystectomy with exploration of common bile duct CLIP,MICH PEDERSON FDA Start: 02-18-2022 Total cholecystectomy with exploration of common bile duct Ligation clip, synthetic polymer, non-bioabsorbable ()[id number] 5 FDA Start: 02-18-2022 Total cholecystectomy with exploration of common bile duct CLIP,MICH PEDERSON FDA Start: 02-18-2022 Total cholecystectomy with exploration of common bile duct CLIP,MICH PEDERSON FDA Start: 02-18-2022 Total cholecystectomy with exploration of common bile duct CLIP,MICH PEDERSON FDA Start: 02-18-2022 Total cholecystectomy with exploration of common bile duct CLIP,MICH PEDERSON FDA Start: 02-18-2022 Total cholecystectomy with exploration of common bile duct CLIP,MICH PEDERSON FDA Start: 02-18-2022 Total cholecystectomy with exploration of common bile duct CLIP,MICH PEDERSON FDA Start: 02-18-2022 Total cholecystectomy with exploration of common bile duct CLIP,MICH PEDERSON FDA Start: 02-18-2022 Total cholecystectomy with exploration of common bile duct CLIP,MICH PEDERSON FDA Start: 02-18-2022 Total cholecystectomy with exploration of common bile duct CLIP,MICH PEDERSON FDA Start: 02-18-2022 Total cholecystectomy with exploration of common bile duct CLIP,MICH PEDERSON FDA Start: 02-18-2022 Total cholecystectomy with exploration of common bile duct CLIP,MICH PEDERSON FDA Start: 02-18-2022 Total cholecystectomy with exploration of common bile duct CLIP,MICH PEDERSON FDA Start: 02-18-2022 Total cholecystectomy with exploration of common bile duct CLIP,MCIH PEDERSON FDA Start: 02-18-2022 ERCP (endoscopic retrograde cholangiopancreatograph y) RX STENT/10 X 5CM FDA Start: 03-12-2022 ERCP (endoscopic retrograde cholangiopancreatograph y) RX STENT/10 X 5CM FDA Start: 03-12-2022 ERCP (endoscopic retrograde cholangiopancreatograph y) RX STENT/10 X 5CM FDA Start: 03-12-2022 ERCP (endoscopic retrograde cholangiopancreatograph y) RX STENT/10 X 5CM FDA Start: 03-12-2022 ERCP (endoscopic retrograde cholangiopancreatograph y) RX STENT/10 X 5CM FDA Start: 03-12-2022 ERCP (endoscopic retrograde cholangiopancreatograph y) RX STENT/10 X 5CM FDA Start: 03-12-2022 ERCP (endoscopic retrograde cholangiopancreatograph y) RX STENT/10 X 5CM FDA Start: 03-12-2022 ERCP (endoscopic retrograde cholangiopancreatograph y) RX STENT/10 X 5CM FDA Start: 03-12-2022 ERCP (endoscopic retrograde cholangiopancreatograph y) RX STENT/10 X 5CM FDA Start: 03-12-2022 ERCP (endoscopic retrograde cholangiopancreatograph y) RX STENT/10 X 5CM FDA Start: 03-12-2022 OP ERCP with Anesthesia Unknown 04/01/22 Unknown Unknown FDA Start: 04-01-2022 OP ERCP with Anesthesia Unknown 04/01/22 Unknown Unknown FDA Start: 04-01-2022 OP ERCP with Anesthesia Unknown 04/01/22 Unknown Unknown FDA Start: 04-01-2022 OP ERCP with Anesthesia Unknown 06/01/22 Unknown Unknown FDA Start: 06-01-2022 OP ERCP with Anesthesia Unknown 04/01/22 Unknown Unknown FDA Start: 04-01-2022 OP ERCP with Anesthesia Unknown 06/01/22 Unknown Unknown FDA Start: 06-01-2022 OP ERCP with Anesthesia Unknown 04/01/22 Unknown Unknown FDA Start: 04-01-2022 OP ERCP with Anesthesia Unknown 06/01/22 Unknown Unknown FDA Start: 06-01-2022 OP ERCP with Anesthesia Unknown 04/01/22 Unknown Unknown FDA Start: 04-01-2022 OP ERCP with Anesthesia Unknown 06/01/22 Unknown Unknown FDA Start: 09-20-2022 OP ERCP with Anesthesia Unknown 01/13/23 Unknown Unknown FDA Start: 01-13-2023 OP ERCP with Anesthesia Unknown 04/01/22 Unknown Unknown FDA Start: 04-01-2022 OP ERCP with Anesthesia Unknown 06/01/22 Unknown Unknown FDA Start: 06-01-2022 OP ERCP with Anesthesia Unknown 01/13/23 Unknown Unknown FDA Start: 01-13-2023 OP ERCP with Anesthesia Unknown 04/01/22 Unknown Unknown FDA Start: 04-01-2022 OP ERCP with Anesthesia Unknown 06/01/22 Unknown Unknown FDA Start: 06-01-2022 OP ERCP with Anesthesia Unknown 01/13/23 Unknown Unknown FDA Start: 01-13-2023 OP ERCP with Anesthesia Unknown 04/01/22 Unknown Unknown FDA Start: 04-01-2022 OP ERCP with Anesthesia Unknown 06/01/22 Unknown Unknown FDA Start: 06-01-2022 OP ERCP with Anesthesia Unknown 01/13/23 Unknown Unknown FDA Start: 01-13-2023 Goals Date Patient Goal Desired Activity /State Functional Status Date Assessment Result Facility 03-31-2023 Functional Status Sensory Deficits None [facility] 03-03-2023 Functional Status Home Living Ad ditional Information Objective: Observation: mild forward head and flexed posture. Sensation: Grossly intact light touch bilat LE's Cardiovascular screen: O2 sat: 92%, HR: 72 BPM, BP: 140/70 Reflexes: Quads R: 1+ L: 1+ Achilles R: 1+ L: 1+ Gait: Suggests leg length discrepency and trendelenburg gait. Reduced notably with use of a single tip cane but able to walk steadily without cane. Trunk AROM: not tested Repeated Motion Testing: not tested Special Tests: Slump: - bilat tested in seated part range [facility] 01-15-2023 Functional Status Room check performed [facility] 01-15-2023 Functional Status [facility] 01-14-2023 Functional Status Up with assistance [facility] 01-14-2023 Functional Status [facility] 01-14-2023 Functional Status NPO Status Maintained [facility] 01-14-2023 Functional Status [facility] 01-14-2023 Functional Status [facility] 01-13-2023 Functional Status Lunch Percent 100 [facility] 01-13-2023 Functional Status [facility] 01-13-2023 Functional Status [facility] 01-12-2023 [facility]-10[facility]23 Functional Status Living Situati on Lives with spouse [facility] 01-10-2023 Functional Status [facility] 01-09-2023 Functional Status Standard Safet y ID band on, Call device within reach, Bed in low position, Wheels locked, Visitor at bedside, Safety level maintained [facility] 08-24-2022 Functional Status Awake [facility] 08-24-2022 Functional Status [facility] 08-24-2022 Functional Status Maintained [facility] 08-17-2022 Functional Status Sensory Deficits None [facility] 06-01-2022 Functional Status Ambulating in room [facility] 06-01-2022 Functional Status [facility] 06-01-2022 Functional Status Maintained [facility] 04-01-2022 Functional Status Awake [facility] 04-01-2022 Functional Status ice chips and sips take n [facility] 04-01-2022 Functional Status [facility] 03-31-2022 Functional Status Sensory Deficits None [facility] 03-18-2022 Functional status Ambulates;Up ad chrystal [facility] Work Phone: 02-20-2022 Functional status Ambulates [facility] Work Phone: 02-18-2022 Functional status Activity Abili ty With Assist of 2 [facility] Work Phone: 02-18-2022 Functional status Patient Activity Ambula carol [facility] Work Phone: 02-18-2022 Functional status Assistive Devices None [facility] Work Phone: Functional observable [facility] Mental Status Date Assessment Result Facility 02-25-2023 Cognitive functi ons [id number] [facility] 01-15-2023 Mental Status Orientation Oriented x 4 [facility] 01-14-2023 Mental Status [facility] 01-14-2023 Mental Status [facility] 01-14-2023 Mental Status [facility] 01-13-2023 Mental Status [facility] 01-09-2023 Mental Status Orientation Oriented x 4 [facility] 08-24-2022 Mental Status Oriented x 4 [facility] 08-24-2022 Mental Status [facility] 06-01-2022 Mental Status Oriented x 4 [facility] 06-01-2022 Mental Status [facility] 04-01-2022 Mental Status [facility] 03-18-2022 Cognitive function Voice/Name [facility] Work Phone: 03-12-2022 Cognitive function Drowsy [facility] Work Phone: 03-12-2022 Cognitive function Arousable To Voice/Nam e [facility] Work Phone: 02-20-2022 Cognitive function Voice/Name [facility] Work Phone: 02-18-2022 Cognitive function Level Of Cons ciousness Awake;Alert;Appropriate;Follow s Commands [facility] Work Phone: 02-18-2022 Cognitive function Voice/Name [facility] Work Phone: 02-18-2022 Cognitive function Mood Descript ion Appropriate;Calm;Relaxed [facility] Work Phone: Clinical Notes 02-25-2022 to 10-10-2024 Note Date & Type Note Facility 10-10-2024 Evaluation note Diagnosis Onset Date Resolution Morbid obesity chronic October 102024 9:41am ABDULKADIR (obstructive sleep apnea) chronic October 10 9:41am [facility] Work Phone: 1(488) 481-701406-18-2023 NoteSend Summary: Discharge Summary Providers: Provider RoleProvider Name ReferringCornelio Weaver AttendingFritz Zabala Nurse PractitionerJusta FisherNvTri villa Note Recipients: Cornelio Weaver MD - [id number] [] Tri Choudhury MD - [id number] [] Discharge: Summary: Admission Date: .24-Feb-2023 07:51:00 Discharge Date: 27-Feb-2023 Attending Physician at Discharge: Fritz Zabala Admission Reason: s/p open cholecystectomy(1) Final Discharge Diagnoses: Encounter for cholecystectomy Procedures: Date: 24-Feb-2023 14:55:00 Procedure Name: Open Remnant Choly with 'Gram Condition at Discharge: Satisfactory Disposition at Discharge: .Home Vital Signs: T PRBPMAPSpO2 Value36.59000082/7693% Date/Time02/27 9:4902/27 9:4902/27 9:4902/27 9:4902/27 9:49 Range(36.1C - 37C ) (60 - 71 ) (18 - 18 ) (104 - 146 )/ (56 - 79 ) (91% - 93% ) Highest temp of 37 C was recorded at 02/26 6:10 Date: Weight/Scale Type:Height: 24-Feb-2023 22:60650.8 kg / oht193.2 cm Physical Exam: General: Appears comfortable, in no distress. sititng up in chair this morning Neuro: Awake and alert, motor and sensation grossly intact Skin: Warm, dry. Not jaundiced Lungs: chest expansion symmetrical, on bipap CV: regular rate and rhythm Abdomen: soft, appropriately tender, RUQ dressing in place without strikethrough, KENNETH drain in place draining SS fluid Extremities: SCDs on, palpable pulses, no edema. Hospital Course: 62 yr old male with gallstones who underwent open remnant cholecystectomy on 02.[address] Richardson. Post-op course uncomplicated. Aldrich removed POD 2 and passed TOV. Diet advanced as tolerated. IV medication transitioned to oral with adequate PO intake. Surgical drain removed POD 3. DC home POD 3. Discharge Information: and Continuing Care: Lab Results - Pending: Surgical Pathology Drawn at 24-Feb-2023 13:46:00 Radiology Results - Pending: None Discharge Instructions: Activity: activity as tolerated. May shower.. May not return to school/work. May not drive while taking narcotics. No pushing, pulling, or lifting objects greater than 10 pounds. Nutrition/Diet: resume normal diet Wound Care: Wound Site: abdomen Wound Type: surgical incision Cleanse With: soap and water Cover With: no dressing, leave open to air Instructions: no lotions, creams, or tub soaks Other Instructions: You have lamont along your incision. These will come out in 1-2 weeks. This incision may get wet, pat dry and cover as needed to protect your clothing, otherwise you may leave this incision open to air. Home Care Certification: Skilled Disciplines Ordered: PT Home Care Services: Home Care Skilled Service: Rehab (PT/OT/SP eval and treat) Follow Up Appointments: Follow-Up Appointment 01: Physician/Dept/Service: Dr Richardson Reason for Referral: post-op appointment Scheduled Date/Time: 08-Mar-2023 10:30 Location: [facility] [id number] [place] [address] [address] Discharge Medications: Home Medication amLODIPine 10 mg oral tablet - 1 tab(s) orally once a day omega 3 1000mg capsules - 2 cap(s) orally once a day Multivitamin - 1 tab(s) orally once a day Calcium 1000mg Magnesium 5mg Vitamin D3 15mcg Zinc 140mg acetaminophen 325 mg oral tablet - 2 tab(s) orally every 6 hours enoxaparin 60 mg/0.6 mL injectable solution - 60 milligram(s) subcutaneously 2 times a day sennosides-docusate 8.6 mg-50 mg oral tablet - 2 tab(s) orally 2 times a day lisinopril 20 mg oral tablet - 1 tab(s) oral once a day PRN Medication traMADol 50 mg oral tablet - 1 tab(s) orally every 4 to 6 hours x 7 days, As Needed -for pain Dx: G89.18 DNR Status: Code StatusCode Status order at time of discharge: Full Code Attestation: Note Completion: I am a: Resident/Fellow Attending AttestationI saw and evaluated the patient. I personally obtained the noriega and critical portions of the history and physical exam or was physically present for noriega and critical portions performed by the resident/fellow. I reviewed the resident/fellows documentation and discussed the patient with the resident/fellow. I agree with the resident/fellows medical decision making as documented in the note. I personally evaluated the patient [id number] Electronic Signatures: Fritz Zabala) (Signed 28-Feb-2023 14:36) Authored: Note Completion Co-Signer: Send Summary, Summary Content, Ongoing Care, DNR Status, Note Completion Chacha Yeung (Resident)) (Signed 27-Feb-2023 16:12) Authored: Send Summary, Summary Content, Ongoing Care, DNR Status, Note Completion Last Updated: 28-Feb-2023 14:36 by Fritz Zabala) References: 1. Data Referenced From Consult-Anesthesia - Pain 24-Feb-2023 11:36[facility]16[facility] History of Present illness Narrative* Mr Cerda comes for his second postoperative visit. Recall that just over 3 weeks ago he underwenta very difficult open remnant cholecystectomy. His final pathology is still pending. * Since the time of his visit last week he has continued to do very well. He had scant serous drainage from the medial aspect of his incision where I described that little bit of thin skin between the skin edges. * His vital signs are below. On exam he looks fantastic. His abdomen is protuberant but soft and nontender. His incision looks great. There is no drainage there is no redness again medially he has thatlittle bit of thin skin and it probably had a little bit of seroma or blister underneath but it looks fantastic. I removed his lamont and applied Mastisol and Steri-Strips. [id number]-[facility]ilv[facility]Chi [facility] [address] Work Phone: [phone] NoteClinical Note - Pharmacy v2: Education: Document TopicMedication Education MedicationMeds to Beds: Patient declines Meds to Beds service at discharge. Preferred local pharmacy has been updated to: [facility] in [place], [place] Sources used to confirm home medication list: patient/spouse interview (spouse had written med list with all strengths of tablets and dosing instructions), [facility] pharmacy fill history, [facility] (tramadol 50mg 3 day supply on 5/6, not taking) Medication reconciliation complete Please reach out via Dialoggyo for questions, or if no response call [phone] or vocera [facility] Gustavo Naranjo, PharmD, Transitions of Care Pharmacist [facility] Additional NotesHome Medications Review Status for Reconciliation: Complete Med Status: Patient Currently Takes Medications Drug Name: lisinopril 20 mg oral tablet Instructions: 1 tab(s) oral once a day Drug Name: amLODIPine 10 mg oral tablet Instructions: 1 tab(s) orally once a day Drug Name: omega 3 1000mg capsules Instructions: 2 cap(s) orally once a day Drug Name: Multivitamin Instructions: 1 tab(s) orally once a day Calcium 1000mg Magnesium 5mg Vitamin D3 15mcg Zinc 140mg Allergy: Allergies Summary No Known Allergies Electronic Signatures: Gustavo Naranjo ([facility]) (Signed 25-Feb-2023 09:35) Authored: Education, Allergy Last Updated: 25-Feb-2023 09:35 by Gustavo Naranjo ([facility]06-15-2023 NotePost Operative Note: PreOp Diagnosis: Gallstones Post-Procedure Diagnosis: Same Procedure: Open Remnant Choly with 'Estrada Surgeon: Dylan Resident/Fellow/Other Furniture Removalist'S Assistant: Jr Anesthesia: GET I.V. Fluids: 800 ml crystalloid 50 ml colloid Estimated Blood Loss (mL): 100 ml Specimen: yes. GB Remnant Findings: sizable GB remnant Urine Output: 290 ml Drains and/or Catheters: 19 Fr KENNETH Additional Details: Mod 22 for MO with BMI 50+, reop abd. 3 hr 15 min Attestation: Note Completion: Attending AttestationI was present for the entire procedure Electronic Signatures: Chavez Richardson) (Signed 24-Feb-2023 14:59) Authored: Post Operative Note, Note Completion Last Updated: 24-Feb-2023 14:59 by Chavze Richardson)[facility]06-15-2023 NoteHistory & Physical Reviewed: I have reviewed the History and Physical dated: 02-Feb-2023 History and Physical reviewed and relevant findings noted. Patient examined to review pertinent physical findings.: No significant changes Home Medications Reviewed: no changes noted Allergies Reviewed: no changes noted ERAS (Enhanced Recovery After Surgery): ERAS Patient: no Consent: COVID-19 Consent: COVID-19 Risk ConsentSurgeon has reviewed noriega risks related to the risk of wiliam COVID-19 and if they contract COVID-19 what the risks are. Attestation: Note Completion: I am a: Resident/Fellow Attending AttestationI saw and evaluated the patient. I personally obtained the noriega and critical portions of the history and physical exam or was physically present for noriega and critical portions performed by the resident/fellow. I reviewed the resident/fellows documentation and discussed the patient with the resident/fellow. I agree with the resident/fellows medical decision making as documented in their note with the exception/addition of the following: I personally evaluated the patient [id number] Comments/ Additional Findings Pt seen in preop. No changes since [facility] visit. Got echo yesterday which PAT pleased with. Electronic Signatures: Chavez Richardson) (Signed 24-Feb-2023 10:19) Authored: Note Completion Co-Signer: History & Physical Reviewed, ERAS, Consent, Note Completion Dmitry Norris (Resident)) (Signed 24-Feb-2023 10:13) Authored: History & Physical Reviewed, ERAS, Consent, Note Completion Last Updated: 24-Feb-2023 10:19 by Chavez Richardson)[facility]05-30-2023 Note. 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 Infection control has been notified. Carbapenemase Producing Genes: Not Detected TEST PERFORMED BY: [facility] [address] [place] [address] Klebsiella pneumoniae Isolated from anaerobe bottle only. Blood Culture with fungus: No growth of fungus at 4 weeks. 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 Infection control has been notified. Carbapenemase Producing Genes: Not Detected TEST PERFORMED BY: [facility] [id number] [address] Klebsiella pneumoniae Isolated from anaerobe bottle only. 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 Infection control has been notified. PCR for Carbapenemase Producing Genes (CR-CRE) to follow Klebsiella pneumoniae Isolated from anaerobe bottle only. Preliminary Report [] Verified Date/Time/Personnel: 01/14/2023 07:51 EDT Carbapenem Resistant Enterobacteriaceae Isolated from aerobe bottle only. Infection control has been notified. PCR for Carbapenemase Producing Genes (CR-CRE) to follow Klebsiella pneumoniae Isolated from anaerobe bottle only. Preliminary Report [] Verified Date/Time/Personnel: 01/13/2023 07:43 EDT Enterobacter aerogenes Isolated from aerobe bottle only. LUIS FERNANDO to follow Klebsiella pneumoniae Isolated from anaerobe bottle only. Final report to follow. Preliminary Report [] Verified Date/Time/Personnel: 01/12/2023 09:43 EDT Enterobacter aerogenes Isolated from aerobe bottle only. LUIS FERNANDO to follow Klebsiella pneumoniae Isolated from anaerobe bottle only. LUIS FERNANDO to follow Preliminary Report [] Verified Date/Time/Personnel: 01/11/2023 04:59 EDT Culture has been received in lab and is no growth to date. Culture will be held for four weeks. MICRO - Microbiology STAINS GSANA [] Verified Date/Time/Personnel: 01/11/2023 15:18 EDT Gram Negative Rods GSAER [] Verified Date/Time/Personnel: 01/11/2023 13:50 EDT Gram Negative Rods SUSCEPTIBILITY RESULTS Carbapenem Resistant Enterobacteriaceae Antibiotic LUIS FERNANDO Dilut LUIS FERNANDO Inter Amikacin <=16 Susceptible Amoxicillin/ >16/8 Resistant Clavulanate Ampicillin >16 Resistant Ampicillin/ >16/8 Resistant Sulbactam Aztreonam <=4 Susceptible Cefazolin >16 Resistant Cefotaxime <=2 Susceptible Cefuroxime >16 Resistant Ciprofloxacin <=0.25 Susceptible Ertapenem <=0.5 Susceptible Gentamicin <=2 Susceptible Imipenem 2 Intermediate Levofloxacin <=0.5 Susceptible Meropenem <=1 Susceptible Minocycline <=4 Susceptible Moxifloxacin <=2 Susceptible Piperacillin/ <=8 Susceptible Tazobactam Tetracycline <=4 Susceptible Trimethoprim/ <=0.5/9.5 Susceptible Sulfa Klebsiella pneumoniae Antibiotic LUIS FERNANDO Dilut LUIS FERNANDO Inter Amikacin <=16 Susceptible Amoxicillin/ <=8/4 Susceptible Clavulanate Ampicillin 16 Resistant Ampicillin/ <=4/2 Susceptible Sulbactam Aztreonam <=4 Susceptible Cefazolin <=2 Susceptible Cefotaxime <=2 Susceptible Ciprofloxacin <=0.25 Susceptible Ertapenem <=0.5 Susceptible Gentamicin <=2 Susceptible Imipenem <=1 Susceptible Levofloxacin <=0.5 Susceptible Meropenem <=1 Susceptible Minocycline <=4 Susceptible Moxifloxacin <=2 Susceptible Piperacillin/ <=8 Susceptible Tazobactam Tetracycline <=4 Susceptible Trimethoprim/ <=0.5/9.5 Susceptible Sulfa Performing Locations *1: This test was performed at: [address], [facility] , [facility]01-20-2023 Discharge summary Author Oscar Tubbs [facility] January 20, 2023 11:46am Note Date/Time January 20, 2023 11:46 am [facility] Physical Therapy Health[address] [place] [address] / REHABILITATION SERVICES DISCHARGE SUMMARY MR#: [id number] Acct: [id number] Name: GUSTAVO CERDA Rep #: [id number] : 1960 62 From: Oscar Tubbs DPT, OCS, CSCS Referring Dr.: Dr. Tri Choudhury MD Status: REG RCR Insurance: [facility] SELF PAY INSURANCE GUSTAVO CERDA was seen in my office for initial evaluation on 09/23/22. The following Plan of Care was established for this patient: Initial Frequency: 1-2x /Week Initial Duration: 6 Weeks Patient/Client Instruction: Educate patient on: Condition, Plan of Care, Benefits of Fitness Program For the Purpose of:: To decrease pain, To improve ability to perform ADL's, To improve performance and independence with ADL's, To increase flexibility/ROM, Toimprove endurance, To improve balance, To improve tolerance to ADL's Therapeutic Exercise to Include: Strength training, Balance training, Flexibiltytraining, Gait and locomotor training, Active ROM For the Purpose of:: To decrease pain, To improve ability to perform ADL's, To improve performance and independence with ADL's, To improve endurance, To improve balance, To assume or resume ADL's, To improve tolerance to ADL's Functional Training to Include: ADL Training, Gait training For the Purpose of:: To decrease pain, To improve ability to perform ADL's, To improve performance and independence with ADL's, To increase flexibility/ROM, Toassume or resume ADL's, To improve tolerance to ADL's Manual Therapy Techniques to Include: Soft tissue mobilization For the Purpose of:: To decrease pain, To improve ability to perform ADL's, To improve performance and independence with ADL's, To increase flexibility/ROM, Toassume or resume ADL's, To improve tolerance to ADL's Orthotics: Shoe insert For the Purpose of:: To decrease pain, To improve ability to perform ADL's, To improve performance and independence with ADL's, To assume or resume ADL's, To improve tolerance to ADL's TENS: Yes IF ES: Yes Cryotherapy (ice pack, ice massage): Yes Thermo therapy (hot pack): Yes For the Purpose of:: To decrease pain, To improve ability to perform ADL's, To improve performance and independence with ADL's, To improve gait and locomotor functions, To assume or resume ADL's, To improve tolerance to ADL's This patient was last seen in our office 11/04/22. Pertinent comments regardingtheir Physical therapy will appear below: Pt seen 10 visits of POC and was not improving greatly and sent back to doctor. He was to call if he needed to return after that visit. at this point, it has been over 2 months and I will discontinue form our care per last plan. At this point I will be discontinuing this patient from physical therapy. I would be happy to see this patient again in the future if found appropriate by the physician. Thank you! Oscar Tubbs, DPT, OCS, CSCS Balance/Gait/Functional tests - Balance/Special Test Scores Lower Extremity Functional Score: 40 <Electronically signed by Oscar Tubbs DPT, OCS, CSCS> 01/20/23 1146 CC: Dr. Tri Choudhury MD ~ EBG Signed [facility] Work Phone: [phone]) 406-161905-07-2023 Note. MICRO - Microbiology PROCEDURE: Blood Culture (bacterial) [*1] SOURCE: Blood BODY SITE: COLLECTED DATE/TIME: 01/11/2023 19:01 EDT RECEIVED DATE/TIME: 01/11/2023 21:12 EDT START DATE/TIME: 01/11/2023 21:12 EDT FREE TEXT SOURCE: FINAL REPORTS Final Report [] Verified Date/Time/Personnel: 01/16/2023 21:59 EDT Blood Culture: No Growth at 5 days. PRELIMINARY REPORTS Preliminary Report [] Verified Date/Time/Personnel: 01/11/2023 21:59 EDT Culture has been received in lab and is no growth to date. Routine cultures are held for 5 days. Performing Locations *1: This test was performed at: [facility], [address] [place] [address], [facility] , [facility])01-15-2023 Hospital Discharge instructions Patient Education 01/15/2023 14:02:58 Fat and Cholesterol Restricted Eating Plan Fat and Cholesterol Restricted Eating Plan Eating a diet that limits fat and cholesterol may help lower your risk for heart disease and other conditions. Your body needs fat and cholesterol for basic functions, but eating too much of these things can be harmful to your health. Your health care provider may order lab tests to check your blood fat (lipid) and cholesterol levels. This helps your health care provider understand your risk for certain conditions and whether you need to make diet changes. Work with your health care provider or dietitian to make an eating plan that is right for you. Your plan includes: Limit your fat intake to % or less of your total calories a day. Limit your saturated fat intake to % or less of your total calories a day. Limit the amount of cholesterol in your diet to less than mg a day. Eat g of fiber a day. What are tips for following this plan? General guidelines If you are overweight, work with your health care provider to lose weight safely. Losing just 5 10%of your body weight can improve your overall health and help prevent diseases such as diabetes and heart disease. Avoid: ?Foods with added sugar. ?Fried foods. ?Foods that contain partially hydrogenated oils, including stick margarine, some tub margarines, cookies, crackers, and other baked goods. Limit alcohol intake to no more than 1 drink a day for non women and 2 drinks a day for men. One drink equals 12 oz of beer, 5 oz of wine, or 1 oz of hard liquor. Reading food labels Check food labels for: ?Trans fats, partially hydrogenated oils, or high amounts of saturated fat. Avoid foods that contain saturated fat and trans fat. ?The amount of cholesterol in each serving. Try to eat no more than 200 mg of cholesterol each day. ?The amount of fiber in each serving. Try to eat at least 20 30 g of fiber each day. Choose foods with healthy fats, such as: ?Monounsaturated and polyunsaturated fats. These include olive and canola oil, flaxseeds, walnuts, almonds, and seeds. ?[place]ember[place]-3 fats. These are found in foods such as salmon, mackerel, sardines, tuna, flaxseed oil, andground flaxseeds. Choose grain products that have whole grains. Look for the word whole as the first word in the ingredient list. Cooking Cook foods using methods other than frying. Baking, boiling, grilling, and broiling are some healthy options. Eat more home-cooked food and less restaurant, buffet, and fast food. Avoid cooking using saturated fats. ?Animal sources of saturated fats include meats, butter, and cream. ?Plant sources of saturated fats include palm oil, palm kernel oil, and coconut oil. Meal planning At meals, imagine dividing your plate into fourths: ?Fill one-half of your plate with vegetables and green salads. ?Fill one-fourth of your plate with whole grains. ?Fill one-fourth of your plate with lean protein foods. Eat fish that is high in omega-3 fats at least two times a week. Eat more foods that contain fiber, such as whole grains, beans, apples, broccoli, carrots, peas, and barley. These foods help promote healthy cholesterol levels in the blood. Recommended foods Grains Whole grains, such as whole wheat or whole grain breads, crackers, cereals, and pasta. Unsweetened oatmeal, bulgur, barley, quinoa, or brown rice. [place] or whole wheat flour tortillas. Vegetables Fresh or frozen vegetables (raw, steamed, roasted, or grilled). Green salads. Fruits All fresh, canned (in natural juice), or frozen fruits. Meats and other protein foods Ground beef (85% or leaner), grass-fed beef, or beef trimmed of fat. Skinless chicken or turkey. Ground chicken or turkey. Pork trimmed of fat. All fish and seafood. Egg whites. Dried beans, peas, orlentils. Unsalted nuts or seeds. Unsalted canned beans. Natural nut butters without added sugar andoil. Dairy Low-fat or nonfat dairy products, such as skim or 1% milk, 2% or reduced-fat cheeses, low-fat and fat-free ricotta or cottage cheese, or plain low-fat and nonfat yogurt. Fats and oils Tub margarine without trans fats. Light or reduced-fat mayonnaise and salad dressings. Avocado. [place], canola, sesame, or safflower oils. The items listed above may not be a complete list of recommended foods or beverages. Contact your dietitian for more options. Foods to avoid Grains White bread. White pasta. White rice. Cornbread. Bagels, pastries, and croissants. Crackers and snack foods that contain trans fat and hydrogenated oils. Vegetables Vegetables cooked in cheese, cream, or butter sauce. Fried vegetables. Fruits Canned fruit in heavy syrup. Fruit in cream or butter sauce. Fried fruit. Meats and other protein foods Fatty cuts of meat. Ribs, chicken wings, regalado, sausage, bologna, salami, chitterlings, fatback, hot dogs, bratwurst, and packaged lunch meats. Liver and organ meats. Whole eggs and egg yolks. Chicken and turkey with skin. Fried meat. Dairy Whole or 2% milk, cream, [id number], and cream cheese. Whole milk cheeses. Whole-fat or sweetened yogurt. Full-fat cheeses. Nondairy creamers and whipped toppings. Processed cheese, cheese spreads, and cheese curds. Beverages Alcohol. Sugar-sweetened drinks such as sodas, lemonade, and fruit drinks. Fats and oils Butter, stick margarine, lard, shortening, ghee, or regalado fat. Coconut, palm kernel, and palm oils. Sweets and desserts [place] syrup, sugars, honey, and molasses. Candy. Jam and jelly. Syrup. Sweetened cereals. Cookies, pies, cakes, donuts, muffins, and ice cream. The items listed above may not be a complete list of foods and beverages to avoid. Contact your dietitian for more information. Summary Your body needs fat and cholesterol for basic functions. However, eating too much of these things can be harmful to your health. Work with your health care provider and dietitian to follow a diet low in fat and cholesterol. Doing this may help lower your risk for heart disease and other conditions. Choose healthy fats, such as monounsaturated and polyunsaturated fats, and foods high in omega-3 fatty acids. Eat fiber-rich foods, such as whole grains, beans, peas, fruits, and vegetables. Limit or avoid alcohol, fried foods, and foods high in saturated fats, partially hydrogenated oils,and sugar. This information is not intended to replace advice given to you by your health care provider. Make sure you discuss any questions you have with your health care provider. Document Released: 08/29/2006 Document Revised: 08/11/2018 Document Reviewed: 05/16/2018 [employer] Patient Education 2020 [employer]. Follow Up Care 01/10/2023 03:54:06 With:TRI CHOUDHURY Address: [address] [place] [phone] When:1-2 days With:MD PAULA QUEZADA MD Address: [address] [facility] [address] Gastroenterology[facility] [phone] When:5 to 7 days With:PAVAN DALY DO, Surgery Address: [address] [facility] [address] [facility] [place] [phone] When: only if needed Comments:Please call with any questions or concerns. Will facilitate follow-up with [facility]. [facility] 05-06-2023 Surgery Hospital Progress note Date of Service 01/15/2023 Chief Complaint Incisional pain, postsurgical Subjective Patient sitting up comfortably in chair this morning. Having mild incisional tenderness. Toleratingfull liquid diet without difficulty. Passing small amount of flatus. Having no shortness breath or chest pain. No nausea or vomiting. Objective Vitals and Measurements T: 36.4 C (Oral) TMIN: 36.06 C TMAX: 36.9 C (Oral) HR: 49 RR: 18 BP: 155/80 SpO2: 96% Intake and Output 7AM Yesterday to 7AM Today Intake and Output (Last 24 hours) Intake Administration Information 1320.00 Oral Intake 100.00 Output Urine Voided 1250.00 Intra-Op EBL 2.00 Stool Count 0.00 Urine Count 3.00 Total Summary Total Intake 1420.00 Total Output 1252.00 Fluid Balance 168.00 Physical Exam General -alert and oriented x4, answers questions appropriately. In no acute distress. HEENT -normocephalic. Cardiovascular -S1-S2, regular rate and rhythm. Respiratory -easy unlabored respirations. Chest rise symmetrical. On supplemental oxygen via nasal cannula. Abdomen/GI -soft, obese/rounded, mildly tender near abdominal incisions. Small amount of ecchymosisnoted. Incisions are well approximated with surgical glue in place., bowel sounds present. Nondistended. Musculoskeletal -SPEARS x4. Psychiatric -calm and cooperative. Skin -normal for ethnicity. Weight Dosing Weight: 156.4 kg (01/10/23) Medications Medications (16) Active Scheduled: (3) amLODIPine 10 mg tablet 10 mg 1 tab(s), Oral, qAM pantoprazole 40 mg EC tablet 40 mg 1 tab(s), Oral, qDayAC piperacillin-tazobactam PMX 3.375 gram(s) 50 mL, IV Piggyback, q8h Continuous: (0) PRN: (13) acetaminophen 325 mg Tablet 650 mg 2 tab(s), Oral, q6hr albuterol - ipratropium 2.5 mg-0.5 mg/3 mL Inhal Estefany UD 3 mL, Inhalation, q4hRT guaifenesin 100 mg/5 mL 120 mL liquid 200 mg 10 mL, Oral, q4h HYDROmorphone 0.5 mg/0.5 mL PF syringe 0.5 mg 0.5 mL, IV Push, q5min hydromorphone 1 mg/mL (1mL) INJ 1 mg 1 mL, IV Push, q5min melatonin 3 mg tablet 3 mg 1 tab(s), Oral, qHS morphine 2 mg/mL 1 mL syringe 1 mg 0.5 mL, IV Push, q3h ondansetron 2 mg/ 1 mL 2 mL INJ 4 mg 2 mL, IV Push, q4h ondansetron 2 mg/ 1 mL 2 mL INJ 4 mg 2 mL, IV Push, AsDirected oxycodone 5 mg tablet (immediate release) 5 mg 1 tab(s), Oral, q4h polyethylene glycol 3350 - UD packet 17 gram(s) 15 mL, Oral, qDay prochlorperazine 10 mg/2 mL vial 5 mg 1 mL, IV Push, q6h tramadol 50 mg Tablet 50 mg 1 tab(s), Oral, q4h Lab Results 01/15 07:48 WBC: 6.7 Hgb: 14.0 Hct: 41.2 Platelet: 271 Neutrophil %: 74.4 Glucose Level: 116 H Sodium Level: 138 Potassium Level: 4.6 BUN: 14.0 Creatinine Lvl (s): 0.90 01/14 04:15 WBC: 5.7 Hgb: 13.5 Hct: 39.1 L Platelet: 297 Neutrophil %: 72.6 Glucose Level: 122 H Sodium Level: 138 Potassium Level: 4.6 BUN: 14.0 Creatinine Lvl (s): 0.92 EKG No qualifying data available. Assessment/Plan 62-year-old male who is postoperative day #1 status post laparoscopy with attempted stump cholecystectomy. Surgery was aborted due to dense intra- abdominal adhesions. He has remained afebrile overnight with stable vital signs. Morning labs reviewed, white count remains normal with a stable hemoglobin. Total bilirubin remains mildly elevated at 1.6 from 1.5. LFTs noted to be 104/260. Lipase normal 32. Patient is overall doing well this morning. His incisions are well approximated and he is having minimal pain. Tolerating full liquid without difficulty. Plan: -Patient will need follow-up at tertiary care center. Information for outpatient follow-up at will be provided. -Advance diet. If he tolerates and continues to do well, okay for discharge home later today. Case has been discussed with Dr. Daly, please see his addendum to follow for further surgical recommendations. Digitally Signed by ARACELI WONG on 01/15/2023 10:55 AM [id number] Discharge Instructions Thank you for allowing [facility] to assist you with your healthcare needs. The following is importantdischarge information regarding your hospital visit. Your Care Team TRI CHOUDHURY Your Diagnosis Abdominal pain with jaundice Acute post-operative pain What to do next Instructions From Your Doctor No lifting or pushing objects greater than 10-15 pounds and no strenuous activity. Walking, using the stairs, and riding in a car are acceptable forms of activity and are encouraged in the postoperative period. Incentive spirometry use and deep breathing/coughing exercises are also encouraged afterdischarge to prevent respiratory complications such as pneumonia and blood clots. No driving while taking narcotic pain medication. You may shower. No tub bathing or soaking your incisions, and no pool/hot tub use until cleared by your surgeon. Wash your incisions daily with a mild soap and water and pat dry. It is recommended that you alternate between 650-1000 mg of Tylenol and 400-800 mg Motrin (Advil orIbuprofen) every 6 hours as needed to optimize pain control after surgery. A temporary prescriptionfor a narcotic pain medication is typically provided to you postoperatively and should only be usedfor breakthrough pain as narcotics increase the risk for constipation, dependency, and respiratory depression. Constipation after surgery is a very common concern for patients after discharge from the hospital.Patients are encouraged to take over the counter stool softeners (such as Colace) and over the counter laxatives (Miralax) as needed for constipation. Additional medications that can be taken for postoperative constipation include milk of magnesia, Metamucil, and Senokot. Follow Up Appointments Follow Up with TRI CHOUDHURY When Within 1-2 days Where: [address] [place] [phone] Follow Up with MD PAULA QUEZADA MD When Within 5 to 7 days Where: [address] [facility] [place] [phone] Follow Up with PAVAN DALY DO, Surgery When Only if needed Why: Please call with any questions or concerns. Will facilitate follow-up with [facility]. Where: [address] [facility] [address] [facility] [place] [phone] The Following Activity and Diet Have Been Ordered for You Discharge Activity - Ordered -- Lifting Restricted less than 10 pounds Driving Restricted May Shower, No heavy lifting or strenuous activity. No driving while taking narcotic pain medication. Shower only., 01/15/23 14:00:00 EDT Discharge Driving Restrictions - Ordered -- No driving until pain-free, No driving if taking narcotic pain medication., 01/15/23 14:00:00 EDT Discharge Diet - Ordered -- Type of Diet: Regular, Fats limit: Low, 01/15/23 14:00:00 EDT The Following Equipment Has Been Ordered for You Discharge Home Equipment Discharge Wound Care - Ordered -- Dressing Type: Open to Air, Change Dressing: qDay, Clean incisions daily with soap and water, pat dry. Shower only, no soaking in tub or pool., 01/15/23 14:00:00 EDT Allergies NKA Medications Please ask your primary doctor or pharmacist before taking any other medication not listed, including over the counter drugs, herbal medications, vitamins and or supplements as they may interact withyour home medications. What How Much When Why Instructions Last Dose New ciprofloxacin (Cipro 250 mg oral tablet) 2 tab(s) by mouth Every 12 hours Duration: 7 Days Pickup at [facility]/pharmacy #[id number] New pantoprazole (pantoprazole 40 mg oral enteric coated tablet) 1 tab(s) by mouth Once a day before a meal Pickup at [facility]/pharmacy #[id number] New traMADol (Ultram 50 mg oral tablet) 1 tab(s) by mouth Every 6 hours as needed for as needed for pain Acute post-operative pain Duration: 3 Days Pickup at [facility]/pharmacy #[id number] Unchanged amLODIPine (amLODIPine 10 mg oral tablet) 1 tab(s) by mouth Once a day (in the morning) Unchanged lisinopril (lisinopril 20 mg oral tablet) 1 tab(s) by mouth Once a day (in the morning) Unchanged omega-3 polyunsaturated fatty acids (omega-3 fish oil 1000 mg oral capsule) 1 cap by mouth Once a day (in the morning) Pharmacy Information [facility]/pharmacy #[id number]: [address] [place], [place] [phone] Please take this list to your next doctor s visit. Bring all medications you take, including over the counter medications, herbals and other supplements with you to your doctor s visit. Patients and families are reminded to discard old lists and to update any records with all medication providers or retail pharmacies. Education Materials Fat and Cholesterol Restricted Eating Plan Eating a diet that limits fat and cholesterol may help lower your risk for heart disease and other conditions. Your body needs fat and cholesterol for basic functions, but eating too much of these things can be harmful to your health. Your health care provider may order lab tests to check your blood fat (lipid) and cholesterol levels. This helps your health care provider understand your risk for certain conditions and whether you need to make diet changes. Work with your health care provider or dietitian to make an eating plan that is right for you. Your plan includes: Limit your fat intake to % or less of your total calories a day. Limit your saturated fat intake to % or less of your total calories a day. Limit the amount of cholesterol in your diet to less than mg a day. Eat g of fiber a day. What are tips for following this plan? General guidelines If you are overweight, work with your health care provider to lose weight safely. Losing just 5 10%of your body weight can improve your overall health and help prevent diseases such as diabetes and heart disease. Avoid: ? Foods with added sugar. ? Fried foods. ? Foods that contain partially hydrogenated oils, including stick margarine, some tub margarines, cookies, crackers, and other baked goods. Limit alcohol intake to no more than 1 drink a day for non women and 2 drinks a day for men. One drink equals 12 oz of beer, 5 oz of wine, or 1 oz of hard liquor. Reading food labels Check food labels for: ? Trans fats, partially hydrogenated oils, or high amounts of saturated fat. Avoid foods that containsaturated fat and trans fat. ? The amount of cholesterol in each serving. Try to eat no more than 200 mg of cholesterol each day. ? The amount of fiber in each serving. Try to eat at least 20 30 g of fiber each day. Choose foods with healthy fats, such as: ? Monounsaturated and polyunsaturated fats. These include olive and canola oil, flaxseeds, walnuts, almonds, and seeds. ? [place]-3 fats. These are found in foods such as salmon, mackerel, sardines, tuna, flaxseed oil, and ground flaxseeds. Choose grain products that have whole grains. Look for the word whole as the first word in the ingredient list. Cooking Cook foods using methods other than frying. Baking, boiling, grilling, and broiling are some healthy options. Eat more home-cooked food and less restaurant, buffet, and fast food. Avoid cooking using saturated fats. ? Animal sources of saturated fats include meats, butter, and cream. ? Plant sources of saturated fats include palm oil, palm kernel oil, and coconut oil. Meal planning At meals, imagine dividing your plate into fourths: ? Fill one-half of your plate with vegetables and green salads. ? Fill one-fourth of your plate with whole grains. ? Fill one-fourth of your plate with lean protein foods. Eat fish that is high in omega-3 fats at least two times a week. Eat more foods that contain fiber, such as whole grains, beans, apples, broccoli, carrots, peas, and barley. These foods help promote healthy cholesterol levels in the blood. Recommended foods Grains Whole grains, such as whole wheat or whole grain breads, crackers, cereals, and pasta. Unsweetened oatmeal, bulgur, barley, quinoa, or brown rice. [place] or whole wheat flour tortillas. Vegetables Fresh or frozen vegetables (raw, steamed, roasted, or grilled). Green salads. Fruits All fresh, canned (in natural juice), or frozen fruits. Meats and other protein foods Ground beef (85% or leaner), grass-fed beef, or beef trimmed of fat. Skinless chicken or turkey. Ground chicken or turkey. Pork trimmed of fat. All fish and seafood. Egg whites. Dried beans, peas, orlentils. Unsalted nuts or seeds. Unsalted canned beans. Natural nut butters without added sugar andoil. Dairy Low-fat or nonfat dairy products, such as skim or 1% milk, 2% or reduced-fat cheeses, low-fat and fat-free ricotta or cottage cheese, or plain low-fat and nonfat yogurt. Fats and oils Tub margarine without trans fats. Light or reduced-fat mayonnaise and salad dressings. Avocado. [place], canola, sesame, or safflower oils. The items listed above may not be a complete list of recommended foods or beverages. Contact your dietitian for more options. Foods to avoid Grains White bread. White pasta. White rice. Cornbread. Bagels, pastries, and croissants. Crackers and snack foods that contain trans fat and hydrogenated oils. Vegetables Vegetables cooked in cheese, cream, or butter sauce. Fried vegetables. Fruits Canned fruit in heavy syrup. Fruit in cream or butter sauce. Fried fruit. Meats and other protein foods Fatty cuts of meat. Ribs, chicken wings, regalado, sausage, bologna, salami, chitterlings, fatback, hot dogs, bratwurst, and packaged lunch meats. Liver and organ meats. Whole eggs and egg yolks. Chicken and turkey with skin. Fried meat. Dairy Whole or 2% milk, cream, [id number], and cream cheese. Whole milk cheeses. Whole-fat or sweetened yogurt. Full-fat cheeses. Nondairy creamers and whipped toppings. Processed cheese, cheese spreads, and cheese curds. Beverages Alcohol. Sugar-sweetened drinks such as sodas, lemonade, and fruit drinks. Fats and oils Butter, stick margarine, lard, shortening, ghee, or regalado fat. Coconut, palm kernel, and palm oils. Sweets and desserts [place] syrup, sugars, honey, and molasses. Candy. Jam and jelly. Syrup. Sweetened cereals. Cookies, pies, cakes, donuts, muffins, and ice cream. The items listed above may not be a complete list of foods and beverages to avoid. Contact your dietitian for more information. Summary Your body needs fat and cholesterol for basic functions. However, eating too much of these things can be harmful to your health. Work with your health care provider and dietitian to follow a diet low in fat and cholesterol. Doing this may help lower your risk for heart disease and other conditions. Choose healthy fats, such as monounsaturated and polyunsaturated fats, and foods high in omega-3 fatty acids. Eat fiber-rich foods, such as whole grains, beans, peas, fruits, and vegetables. Limit or avoid alcohol, fried foods, and foods high in saturated fats, partially hydrogenated oils,and sugar. This information is not intended to replace advice given to you by your health care provider. Make sure you discuss any questions you have with your health care provider. Document Released: 08/29/2006 Document Revised: 08/11/2018 Document Reviewed: 05/16/2018 [employer] Patient Education 2020 [employer]. Additional Information VACCINATE! IT SAVES LIVES! Members of the community who have not yet received the COVID-19 vaccine and would like to receive it can visit one of [facility] vaccine clinics. There are many vaccine clinic locations within the [facility]. For locations and available times, please visit [email or web address] It is important to note that some COVID mobile vaccine clinics are held outdoors and may be canceled in rainy or stormy conditions. To learn more about pediatric vaccinations (ages 5-11), we invite you to visit the [facility] webpage. [email or web address] learn more about the COVID-19 vaccine, we invite you to visit the CDC website for a list of frequently asked questions. https://www.cdc.gov/coronavirus/2019-ncov/vaccines/faq.html [facility] Patient Portal Access Instructions: Stay connected with your healthcare team and access your personal medical information anytime with the [facility] [facility] Patient Portal.If you would like a full copy of your medical records, please contact the [facility] Medical Records Department, Tuesday through Tuesday between 8a.m. and 4:30p.m. Please follow the directions below to access the portal: 1.Access the email account you provided upon registration to the [facility].2.Look for an invitation email from [facility].3.Open the email and access the invitation link: Accept Invitation to [facility]4.Fill in the required montero to create your account. Sign into [email or web address] with your username and password that you created in the above steps to stay up to date. You can then view a summary of results, a summary of your visits, and the ability to download your summaries to your computer or send the information securely to a physician. Remember that your healthcare information is confidential, so carefully consider who you will allow to register on the [facility] Patient Portal for access to your information. You can also access the [facility] Patient Portal on the [employer] osbaldo. Simply click on Health Records under [employer] and then click on the [facility] logo. HOW TO SAFELY DISPOSE OF PRESCRIPTION MEDICATIONS Please use one of the following methods to safely dispose of your unused medications. 1.Use a drug disposal kit: the drug disposal pouch allows you to safely discard your old and unuseddrugs. Ask your nurse to give you one when you are discharged.2.Visit a local take-back location: Many local pharmacies and police departments have programs that collect old and unwanted prescriptiondrugs. Call your local pharmacy or go to http://[employer].Sleep Number/8B9Jk1c to find one close to you.3.Make use of household items: Use cat litter or old coffee grounds to dispose medications if other options arenot available. Mix your drugs with these household products, seal them in an airtight container andthrow it into the garbage. Call [facility]: [phone] to be sure your drugs can be disposed of in this way. Some medicines may require a different approach.4.Never flush your medications down the toilet. IF YOU HAVE BEEN PRESCRIBED AN OPIOID FOR PAIN If you have been prescribed an opioid (such as hydrocodone, oxycodone or morphine), it is critical to understand the possible side effects and risks of opioid pain medications. Even when taken as directed, opioids can have several side effects including: Tolerance, meaning you might need to take more of a medication for the same pain relief. Nausea, vomiting and/or constipation. Sleepiness, dizziness, dry mouth, confusion, depression or itching. Physical dependence, meaning you have withdrawal symptoms when a medication is stopped, can develop within a few days. KNOW YOUR RESPONSIBILITIES It is important to know exactly how much and how often to take the opioid pain medications you are prescribed. Never take opioids in higher amounts or more often than prescribed. Do not combine opioids with alcohol or other drugs that cause drowsiness, such as benzodiazepines, also known as benzos, including diazepam and alprazolam, muscle relaxants or sleep aids. Never sell or share prescription opioids. This is illegal. Store opioids in a secure place and out of reach of others (including children, family, friends and visitors). The last page of this document has been signed and retained as a CHART COPY. Signatures Patient Education Materials Fat and Cholesterol Restricted Eating Plan Medication Leaflets My discharge plan and instructions have been reviewed and explained to me and I,GUSTAVO CERDA understand my current condition and have read and understand these discharge instructions. I have received a written copy of the plan/instructions. If I have questions, I am aware that I should contact my doctor. 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: Date/Time: Relationship to Patient: Witness Name/Signature: Date/Time: [id number] Discharge summary Date of Service 01/15/2023 Discharge Diagnosis Calculus of bile duct without cholangitis or cholecystitis without obstruction (K80.50 - ICD-10-CM) Acute kidney failure, unspecified (N17.9 - ICD-10-CM) Body mass index [BMI] 45.0-49.9, adult (Z68.42 - ICD-10-CM) Bacteremia (R78.81 - ICD-10-CM) Personal history of other venous thrombosis and embolism (Z86.718 - ICD-10-CM) Essential (primary) hypertension (I10 - ICD-10-CM) Epigastric pain (R10.13 - ICD-10-CM) Morbid (severe) obesity due to excess calories (E66.01 - ICD-10-CM) Abdominal pain with jaundice (R10.9 - ICD-10-CM) Acute post-operative pain (G89.18 - ICD-10-CM) Hospital Course 62-year-old male PMH HTN, HLD, history of DVT on anticoagulation, history of partial cholecystectomy with ongoing episodes of bile leakage requiring multiple biliary stents. Patient presented earliertoday as a transfer from [place] with severe epigastric/abdominal pain nausea, vomiting of biliarysubstance and food. Patient states these symptoms consistent with prior episodes where he required ERCP. Work-up included CBC within normal limits, BMP within normal limits, total bilirubin and LFTs elevated lipase 18. CT abdomen and pelvis with contrast concerning for cholelithiasis with cholecystitis no biliary ductal dilation. 6 mm left lower lobe nodule unchanged. Abdominal ultrasound showed largely stable appearing gallbladder with folded/septated contour and trace pericholecystic fluid. Findings likely reflecting acute cholecystitis. Common bile duct appeared dilated measuring 13 mm approximately. EKG sinus rhythm with nonspecific ST change. Patient has been started on IV antibiotics GI and general surgery have been consulted. Blood culture positive for gram-negative rods repeat culture has been ordered. Creatinine was briefly elevated to 1.6 patient started on IV fluids creatinine has normalized. Patient went for biliary decompression via ERCP with GI on 01/13 [facility]. Procedure was aborted due to extensive adhesions. Patient was recommended to follow-up with liver center. Information was provided by general surgery team. Will discharge patient on 7-day course of ciprofloxacin to 10-day treatment course. We will have patient follow-up with PCP and gastroenterology for further outpatient care. CRE/ Klebsiella bacteremia Suspected stump cholecystitis Suspected cholelithiasis JESUS History of recurrent choledocholithiasis History of DVT on anticoagulation Other comorbidities including hypertension hyperlipidemia and obesity Allergies NKA Consults Consult to Anesthesia - Ordered -- 01/11/23 11:57:00 EDT, *Other (specify in special instructions), To Provide Anesthesia during Procedure Consult to Physician - Ordered -- 01/10/23 4:53:00 EDT, CORNELIO WEAVER MD, Routine, Choledocholithiasis Consult to Physician - Ordered -- 01/10/23 17:35:00 EDT, PAVAN DALY DO, Routine, concern for cholecystitis, s/p prior cholecystectomy Physical Exam Vitals and Measurements T: 36.4 C (Oral) TMIN: 36.06 C TMAX: 36.9 C (Oral) HR: 50 RR: 18 BP: 155/80 SpO2: 95% Weight Dosing Weight: 156.4 kg (01/10/23) Code Status Code Status - Ordered -- 01/10/23 4:41:00 EDT, Full Code, Constant Order Admission Date 01/10/2023 Discharge Date 01/15/2023 Patient Instructions No lifting or pushing objects greater than 10-15 pounds and no strenuous activity. Walking, using the stairs, and riding in a car are acceptable forms of activity and are encouraged in the postoperative period. Incentive spirometry use and deep breathing/coughing exercises are also encouraged afterdischarge to prevent respiratory complications such as pneumonia and blood clots. No driving while taking narcotic pain medication. You may shower. No tub bathing or soaking your incisions, and no pool/hot tub use until cleared by your surgeon. Wash your incisions daily with a mild soap and water and pat dry. It is recommended that you alternate between 650-1000 mg of Tylenol and 400-800 mg Motrin (Advil orIbuprofen) every 6 hours as needed to optimize pain control after surgery. A temporary prescriptionfor a narcotic pain medication is typically provided to you postoperatively and should only be usedfor breakthrough pain as narcotics increase the risk for constipation, dependency, and respiratory depression. Constipation after surgery is a very common concern for patients after discharge from the hospital.Patients are encouraged to take over the counter stool softeners (such as Colace) and over the counter laxatives (Miralax) as needed for constipation. Additional medications that can be taken for postoperative constipation include milk of magnesia, Metamucil, and Senokot. Medications New Prescription ciprofloxacin (Cipro 250 mg oral tablet)2 tab(s) by mouth every 12 hours for 7 Days. Refills: 0. pantoprazole (pantoprazole 40 mg oral enteric coated tablet)1 tab(s) by mouth once a day before a meal. Refills: 0. traMADol (Ultram 50 mg oral tablet)1 tab(s) by mouth every 6 hours as needed as needed for pain for3 Days. Refills: 0. Unchanged amLODIPine (amLODIPine 10 mg oral tablet)1 tab(s) by mouth once a day (in the morning). lisinopril (lisinopril 20 mg oral tablet)1 tab(s) by mouth once a day (in the morning). omega-3 polyunsaturated fatty acids (omega-3 fish oil 1000 mg oral capsule)1 cap by mouth once a day (in the morning). Follow Up Follow Up with TRI CHOUDHURY When Within 1-2 days Where: [address] [place] [address]- [phone] Follow Up with MD PAULA QUEZADA MD When Within 5 to 7 days Where: [address] [facility] [address] [facility] [address]- [phone] Follow Up with PAVAN DALY DO, Surgery When Only if needed Why: Please call with any questions or concerns. Will facilitate follow-up with [facility]. Where: [address] [facility] [address] [place] [address]- [phone] Follow Up Appointments No qualifying data available. Follow Up Labs/Studies Discharge Labs No Follow-up Labs Discharge Studies No Follow-up Studies Discharge Diet Discharge Diet - Ordered -- Type of Diet: Regular, Fats limit: Low, 01/15/23 14:00:00 EDT Discharge Activity Discharge Activity - Ordered -- Lifting Restricted less than 10 pounds Driving Restricted May Shower, No heavy lifting or strenuous activity. No driving while taking narcotic pain medication. Shower only., 01/15/23 14:00:00 EDT Condition on Discharge Stable Discharge Disposition Home Information Provided To Patient at bedside Time Spent Greater than 30 minutes was spent reviewing chart, placing orders developing treatment plan with greater than 50% of time spent at bedside counseling/coordinating care Digitally Signed by SIMON MARK MD on 01/15/2023 02:27 PM [id number] Progress note Date of Service 01/15/2023 Chief Complaint Incisional pain, postsurgical Subjective Patient sitting up comfortably in chair this morning. Having mild incisional tenderness. Toleratingfull liquid diet without difficulty. Passing small amount of flatus. Having no shortness breath or chest pain. No nausea or vomiting. Objective Vitals and Measurements T: 36.4 C (Oral) TMIN: 36.06 C TMAX: 36.9 C (Oral) HR: 49 RR: 18 BP: 155/80 SpO2: 96% Intake and Output 7AM Yesterday to 7AM Today Intake and Output (Last 24 hours) Intake Administration Information 1320.00 Oral Intake 100.00 Output Urine Voided 1250.00 Intra-Op EBL 2.00 Stool Count 0.00 Urine Count 3.00 Total Summary Total Intake 1420.00 Total Output 1252.00 Fluid Balance 168.00 Physical Exam General -alert and oriented x4, answers questions appropriately. In no acute distress. HEENT -normocephalic. Cardiovascular -S1-S2, regular rate and rhythm. Respiratory -easy unlabored respirations. Chest rise symmetrical. On supplemental oxygen via nasal cannula. Abdomen/GI -soft, obese/rounded, mildly tender near abdominal incisions. Small amount of ecchymosisnoted. Incisions are well approximated with surgical glue in place., bowel sounds present. Nondistended. Musculoskeletal -SPEARS x4. Psychiatric -calm and cooperative. Skin -normal for ethnicity. Weight Dosing Weight: 156.4 kg (01/10/23) Medications Medications (16) Active Scheduled: (3) amLODIPine 10 mg tablet 10 mg 1 tab(s), Oral, qAM pantoprazole 40 mg EC tablet 40 mg 1 tab(s), Oral, qDayAC piperacillin-tazobactam PMX 3.375 gram(s) 50 mL, IV Piggyback, q8h Continuous: (0) PRN: (13) acetaminophen 325 mg Tablet 650 mg 2 tab(s), Oral, q6hr albuterol - ipratropium 2.5 mg-0.5 mg/3 mL Inhal Estefany UD 3 mL, Inhalation, q4hRT guaifenesin 100 mg/5 mL 120 mL liquid 200 mg 10 mL, Oral, q4h HYDROmorphone 0.5 mg/0.5 mL PF syringe 0.5 mg 0.5 mL, IV Push, q5min hydromorphone 1 mg/mL (1mL) INJ 1 mg 1 mL, IV Push, q5min melatonin 3 mg tablet 3 mg 1 tab(s), Oral, qHS morphine 2 mg/mL 1 mL syringe 1 mg 0.5 mL, IV Push, q3h ondansetron 2 mg/ 1 mL 2 mL INJ 4 mg 2 mL, IV Push, q4h ondansetron 2 mg/ 1 mL 2 mL INJ 4 mg 2 mL, IV Push, AsDirected oxycodone 5 mg tablet (immediate release) 5 mg 1 tab(s), Oral, q4h polyethylene glycol 3350 - UD packet 17 gram(s) 15 mL, Oral, qDay prochlorperazine 10 mg/2 mL vial 5 mg 1 mL, IV Push, q6h tramadol 50 mg Tablet 50 mg 1 tab(s), Oral, q4h Lab Results 01/15 07:48 WBC: 6.7 Hgb: 14.0 Hct: 41.2 Platelet: 271 Neutrophil %: 74.4 Glucose Level: 116 H Sodium Level: 138 Potassium Level: 4.6 BUN: 14.0 Creatinine Lvl (s): 0.90 01/14 04:15 WBC: 5.7 Hgb: 13.5 Hct: 39.1 L Platelet: 297 Neutrophil %: 72.6 Glucose Level: 122 H Sodium Level: 138 Potassium Level: 4.6 BUN: 14.0 Creatinine Lvl (s): 0.92 EKG No qualifying data available. Assessment/Plan 62-year-old male who is postoperative day #1 status post laparoscopy with attempted stump cholecystectomy. Surgery was aborted due to dense intra- abdominal adhesions. He has remained afebrile overnight with stable vital signs. Morning labs reviewed, white count remains normal with a stable hemoglobin. Total bilirubin remains mildly elevated at 1.6 from 1.5. LFTs noted to be 104/260. Lipase normal 32. Patient is overall doing well this morning. His incisions are well approximated and he is having minimal pain. Tolerating full liquid without difficulty. Plan: -Patient will need follow-up at tertiary care center. Information for outpatient follow-up at will be provided. -Advance diet. If he tolerates and continues to do well, okay for discharge home later today. Case has been discussed with Dr. Daly, please see his addendum to follow for further surgical recommendations. Digitally Signed by ARACELI WONG on 01/15/2023 10:55 AM [facility] [id number] Note Date of Service 01/14/2023 Chief Complaint Fever jaundice Subjective 62-year-old male PMH HTN, HLD, history of DVT on anticoagulation, history of partial cholecystectomy with ongoing episodes of bile leakage requiring multiple biliary stents. Patient presented earliertoday as a transfer from [place] with severe epigastric/abdominal pain nausea, vomiting of biliarysubstance and food. Patient states these symptoms consistent with prior episodes where he required ERCP. Work-up included CBC within normal limits, BMP within normal limits, total bilirubin and LFTs elevated lipase 18. CT abdomen and pelvis with contrast concerning for cholelithiasis with cholecystitis no biliary ductal dilation. 6 mm left lower lobe nodule unchanged. Abdominal ultrasound showed largely stable appearing gallbladder with folded/septated contour and trace pericholecystic fluid. Findings likely reflecting acute cholecystitis. Common bile duct appeared dilated measuring 13 mm approximately. EKG sinus rhythm with nonspecific ST change. Patient has been started on IV antibiotics GI and general surgery have been consulted. Blood culture positive for gram-negative rods repeat culture has been ordered. Creatinine was briefly elevated to 1.6 patient started on IV fluids creatinine has normalized. Patient went for biliary decompression via ERCP with GI on 01/13 plan for surgical intervention today operative report currently pending. Patient was seen and examined Patient stating that pain is well controlled Patient remains afebrile as of this morning hemodynamically stable Discussed treatment plan with patient and at bedside answered all questions Objective Vitals and Measurements T: 36.4 C (Oral) TMIN: 36.06 C TMAX: 36.9 C (Oral) HR: 49 RR: 18 BP: 155/80 SpO2: 96% Intake and Output 7AM Yesterday to 7AM Today Intake and Output (Last 24 hours) Intake Administration Information 1320.00 Oral Intake 100.00 Output Urine Voided 1250.00 Intra-Op EBL 2.00 Stool Count 0.00 Urine Count 3.00 Total Summary Total Intake 1420.00 Total Output 1252.00 Fluid Balance 168.00 Physical Exam HEENT: Moist mucous membranes Cardiac: RRR, No murmur Lungs: CTA, good air entry Abdomen: Soft, Non tender Musculoskeletal: No gross joint deformities Extremities: No edema, good pulses Neurological: Alert, no deficits Skin: No rash, no nodules Weight Dosing Weight: 156.4 kg (01/10/23) Medications Medications (17) Active Scheduled: (3) amLODIPine 10 mg tablet 10 mg 1 tab(s), Oral, qAM pantoprazole 40 mg EC tablet 40 mg 1 tab(s), Oral, qDayAC piperacillin-tazobactam PMX 3.375 gram(s) 50 mL, IV Piggyback, q8h Continuous: (1) NS (0.9% nacl) 1,000 mL 1,000 mL, Intravenous, 20 mL/hr PRN: (13) acetaminophen 325 mg Tablet 650 mg 2 tab(s), Oral, q6hr albuterol - ipratropium 2.5 mg-0.5 mg/3 mL Inhal Estefany UD 3 mL, Inhalation, q4hRT guaifenesin 100 mg/5 mL 120 mL liquid 200 mg 10 mL, Oral, q4h HYDROmorphone 0.5 mg/0.5 mL PF syringe 0.5 mg 0.5 mL, IV Push, q5min hydromorphone 1 mg/mL (1mL) INJ 1 mg 1 mL, IV Push, q5min melatonin 3 mg tablet 3 mg 1 tab(s), Oral, qHS morphine 2 mg/mL 1 mL syringe 1 mg 0.5 mL, IV Push, q3h ondansetron 2 mg/ 1 mL 2 mL INJ 4 mg 2 mL, IV Push, q4h ondansetron 2 mg/ 1 mL 2 mL INJ 4 mg 2 mL, IV Push, AsDirected oxycodone 5 mg tablet (immediate release) 5 mg 1 tab(s), Oral, q4h polyethylene glycol 3350 - UD packet 17 gram(s) 15 mL, Oral, qDay prochlorperazine 10 mg/2 mL vial 5 mg 1 mL, IV Push, q6h tramadol 50 mg Tablet 50 mg 1 tab(s), Oral, q4h Lab Results 01/15 07:48 WBC: 6.7 Hgb: 14.0 Hct: 41.2 Platelet: 271 Neutrophil %: 74.4 Glucose Level: 116 H Sodium Level: 138 Potassium Level: 4.6 BUN: 14.0 Creatinine Lvl (s): 0.90 01/14 04:15 WBC: 5.7 Hgb: 13.5 Hct: 39.1 L Platelet: 297 Neutrophil %: 72.6 Glucose Level: 122 H Sodium Level: 138 Potassium Level: 4.6 BUN: 14.0 Creatinine Lvl (s): 0.92 EKG No qualifying data available. Assessment/Plan Abdominal pain with jaundice CRE/ Klebsiella bacteremia Suspected stump cholecystitis Suspected cholelithiasis JESUS History of recurrent choledocholithiasis History of DVT on anticoagulation Other comorbidities including hypertension hyperlipidemia and obesity Plan Patient presents with complicated biliary history and abdominal pain. LFTs elevated patient jaundiced bilirubin peaking at 6 downtrending to 1.5 today We will continue with antibiotic coverage, blood culture positive for CRE/Klebsiella, repeat blood culture NGTD Patient developed JESUS creatinine trending to 1.6, IV fluids were started creatinine has now normalized we will continue to hold lisinopril continue with amlodipine for now Continue with pain control Continue to monitor LFTs General surgery and GI recommendations appreciated History of DVT Will restart anticoagulation when cleared by general surgery. Orders: CPAP as at home Digitally Signed by SIMON MARK MD on 01/15/2023 08:56 AM [facility] [id number] Anesthesiology Consult note Patient: GUSTAVO CERDA Age: 62 years Sex: Male : 1960 Associated Diagnoses: None Author: DAMIAN PRASAD DO Assessment Postanesthesia assessment Vitals. Mental status: at preoperative baseline. Respiratory function: respirations are non-labored, stable. Respiratory support: none. CV function: stable. Cardiovascular support: none. Pain: Post op control satisfactory. Nausea status: satisfactory. Postoperative hydration status: within normal limits. Notes: pt sufficentyl recovered from anesthesia to participate in the evaluation. No follow up careneeded. No complications post-anesthesia. Digitally Signed by DAMIAN PRASAD DO on 01/14/2023 08:34 PM [facility] [id number] Anesthesiology Consult note Patient: GUSTAVO CERDA Age: 62 years Sex: Male : 1960 Associated Diagnoses: None Author: KENZIE WALDRON MD Preoperative Information Time of last food or liquid consumption: 01/14/2023 00:00:00 Anesthesia history Patient's history: negative. Family's history: negative. History of Present Illness Please refer to most recent H and P / daily progress note / consultation note for further details Review of Systems hx of ABDULKADIR on bipap brought with him Denies hx of mi or cad able to climb a flight of stairs or more without chest pain or anginal symptoms >4mets Some shortness of breath HTN HLD Hx of GERD, well controlled, no symptoms today ON PPI Hx of horseshoe kidney CR at baseline CONNER Hx of cholecystectomy in past Hx of DVT in past denies anticoagulation Health Status Allergies: Allergic Reactions (Selected) NKA, Allergies (1) ActiveReaction NKANone Documented Current medications: (Selected) Inpatient Medications Ordered DuoNeb: 3 mL, Inhalation, q4hRT, PRN: Shortness of breath or wheezing Miralax Powder Packet: 17 gram(s), 15 mL, Oral, qDay, PRN: Constipation NS 1,000 mL: 125 mL/hr, Intravenous NS 1,000 mL: 20 mL/hr, Intravenous Tylenol: 650 mg, 2 tab(s), Oral, q6hr, PRN: Temperature greater than 38.6 degrees C Ultram: 50 mg, 1 tab(s), Oral, q4h, PRN: Pain, scale 1-3 Zofran: 4 mg, 2 mL, IV Push, q4h, PRN: Nausea/Vomiting Zosyn: 3.375 gram(s), 50 mL, 12.5 mL/hr, IV Piggyback, q8h amLODIPine: 10 mg, 1 tab(s), Oral, qAM guaiFENesin: 200 mg, 10 mL, Oral, q4h, PRN: Cough indocyanine green: 5 mg, 2 mL, IV Push, PREOP pharm melatonin: 3 mg, 1 tab(s), Oral, qHS, PRN: Sleep morphine: 1 mg, 0.5 mL, IV Push, q3h, PRN: Pain, scale 7-10 oxyCODONE 5 mg oral tablet ( IMMEDIATE release ): 5 mg, 1 tab(s), Oral, q4h, PRN: Pain, scale 4-6 pantoprazole: 40 mg, 1 tab(s), Oral, qDayAC prochlorperazine: 5 mg, 1 mL, IV Push, q6h, PRN: Nausea/Vomiting Suspended lisinopril: 20 mg, 1 tab(s), Oral, qAM Documented Medications Documented amLODIPine 10 mg oral tablet: 10 mg, 1 tab(s), Oral, qAM lisinopril 20 mg oral tablet: 20 mg, 1 tab(s), Oral, qAM omega-3 fish oil 1000 mg oral capsule: 1,000 mg, 1 cap(s), Oral, qAM, 0 Refill(s), Medications (16) Active Scheduled: (4) amLODIPine 10 mg tablet 10 mg 1 tab(s), Oral, qAM indocyanine green 25 mg 5 mg 2 mL, IV Push, PREOP pharm pantoprazole 40 mg EC tablet 40 mg 1 tab(s), Oral, qDayAC piperacillin-tazobactam PMX 3.375 gram(s) 50 mL, IV Piggyback, q8h Continuous: (2) NS (0.9% nacl) 1,000 mL 1,000 mL, Intravenous, 125 mL/hr NS (0.9% nacl) 1,000 mL 1,000 mL, Intravenous, 20 mL/hr PRN: (10) acetaminophen 325 mg Tablet 650 mg 2 tab(s), Oral, q6hr albuterol - ipratropium 2.5 mg-0.5 mg/3 mL Inhal Estefany UD 3 mL, Inhalation, q4hRT guaifenesin 100 mg/5 mL 120 mL liquid 200 mg 10 mL, Oral, q4h melatonin 3 mg tablet 3 mg 1 tab(s), Oral, qHS morphine 2 mg/mL 1 mL syringe 1 mg 0.5 mL, IV Push, q3h ondansetron 2 mg/ 1 mL 2 mL INJ 4 mg 2 mL, IV Push, q4h oxycodone 5 mg tablet (immediate release) 5 mg 1 tab(s), Oral, q4h polyethylene glycol 3350 - UD packet 17 gram(s) 15 mL, Oral, qDay prochlorperazine 10 mg/2 mL vial 5 mg 1 mL, IV Push, q6h tramadol 50 mg Tablet 50 mg 1 tab(s), Oral, q4h Problem list: Medical Arthritis / SNOMED CT 6147917 / Confirmed Bile duct leak / SNOMED CT 566597877 / Confirmed High blood pressure / SNOMED CT 65894904 / Confirmed Pancreatitis / SNOMED CT 765401249 / Confirmed Sleep apnea / SNOMED CT 412979200 / Confirmed, Active Problems (14) Abdominal pain Apnea Arthritis Bile duct leak BiPAP (biphasic positive airway pressure) dependence DVT of lower limb, acute Glasses High blood pressure Horseshoe kidney CONNER (nonalcoholic steatohepatitis) Pancreatitis Sleep apnea Tobacco use Urinary tract infection Histories Past Medical History: No active or resolved past medical history items have been selected or recorded. Procedure history: Biliary stent ([id number]) in the month of 05/2022 at 61 Years. Comments: 08/17/2022 9:47 HANNAH Fontana Replaced ERCP ([id number]) in the month of 03/2022 at 61 Years. Cholecystectomy ([id number]) in 2021 at 61 Years. Liver ([id number]) in 1990 at 30 Years. Comments: 03/31/2022 14:35 Arianne Hollins RN liver laceration Trauma ([id number]) in 1967 at 7 Years. Comments: 03/31/2022 14:34 Arianne Hollins RN as a child fell in [facility]- multiple surgeries Tonsillectomy and adenoidectomy ([id number]). Colonoscopy (113426491). Rotator cuff repair ([id number]). Comments: 05/25/2022 10:14 HANNAH Wilkerson bilateral Arthroscopic trimming of meniscus ([id number]). Comments: 05/25/2022 10:14 HANNAH Wilkerson right Social History Social & Psychosocial Habits Alcohol 03/31/2022 Use: Never 2Risk Assessment: Denies Alcohol Use Substance Abuse 03/31/2022 Use: Never 2Risk Assessment: Denies Substance Abuse Tobacco 03/31/2022 Tobacco Use: Never (less than 100 in l, Smoker, current status un 2Risk Assessment: Denies Tobacco Use Home/Environment 05/25/2022 Domestic Concerns Denies Living situation: Home/Independent Current Home Treatments bipap Spouse Name Keisha Marital Status of Patient if Patient Independent Adult: 06/01/[address]: Yes Nutrition/Health 03/31/2022 Type of diet: Regular Appetite Good Eating Difficulties None . Physical Examination Measurements from flowsheet : Measurements 01/14/2023 9:42 EDT [place] Body Weight 75 kg 01/14/2023 7:24 EDT Body Mass Index 49.47 kg/m2 General: Alert and oriented. Airway: Mallampati classification: III (soft palate, base of uvula visible), short thyromental distance . Dentition Evaluation: Own teeth, Denies loose/chipped teeth. Respiratory: Respirations are non-labored. Neurologic: Alert, Oriented. Review / Management Documentation reviewed: Current records, Reviewed prior records. Assessment and Plan 62 yo male with h/o htn, horseshoe kidney, choledocolithiasis, h/o ercp with bile duct stent placedfor passage of stones (stent now removed), h/o bile duct leak, pancreatitis, sleep apnea, CONNER, tobacco use, arthritis, DVT (not currently on anticoagulation per med rec). SR on EKG Labs reveal elevated but downtrending LFTs Patient is presently bacteremia, CRE klebsiella bacteremia, positive on 01/10/23. Receiving zosyn. [place] [employer] (ASA) physical status classification: Class III. Anesthetic Preoperative Plan Premedication: intravenous. Anesthetic technique: General. Induction: intravenously. Maintenance airway: Oral endotracheal tube. Postoperative pain management: Per surgeon. Risks discussed: nausea, vomiting, headache, sore throat, dental injury, hypotension, allergic reaction, serious complications. Informed consent: signed by patient. Notes: Extensive time was spent discussing with the patient the inherent risks of anesthesia including but not limited too sore throat, dental injuries to teeth and gums, corneal abrasions, risk of heart attack, stroke, end organ dysfunction, and . The patient is aware of these risks, accepts them and wishes to proceed with anesthesia. . Digitally Signed by KENZIE WALDRON MD on 01/14/2023 03:46 PM Digitally Signed by DAMIAN PRASAD DO on 01/14/2023 04:02 PM [id number] Note Date of Service 01/13/2023 Chief Complaint Abdominal pain jaundice Subjective 62-year-old male PMH HTN, HLD, history of DVT on anticoagulation, history of partial cholecystectomy with ongoing episodes of bile leakage requiring multiple biliary stents. Patient presented [place] a [place] from [place] with severe epigastric/abdominal pain nausea, vomiting of biliarysubstance and food. Patient states these symptoms consistent with prior episodes where he required ERCP. Work-up included CBC within normal limits, BMP within normal limits, total bilirubin and LFTs elevated lipase 18. CT abdomen and pelvis with contrast concerning for cholelithiasis with cholecystitis no biliary ductal dilation. 6 mm left lower lobe nodule unchanged. Abdominal ultrasound showed largely stable appearing gallbladder with folded/septated contour and trace pericholecystic fluid. Findings likely reflecting acute cholecystitis. Common bile duct appeared dilated measuring 13 mm approximately. EKG sinus rhythm with nonspecific ST change. Patient has been started on IV antibiotics GI and general surgery have been consulted. Blood culture positive for gram-negative rods repeat culture has been ordered. Creatinine was briefly elevated to 1.6 patient started on IV fluids creatinine has normalized. Patient went for biliary decompression via ERCP with GI on 01/13 plan for surgical intervention on 01/14. Patient was seen and examined Patient stating that pain is well controlled Patient remains afebrile as of this morning hemodynamically stable Discussed treatment plan with patient and at bedside answered all questions Objective Vitals and Measurements T: 36.5 C (Oral) TMIN: 36.3 C (Temporal Artery) TMAX: 36.7 C (Oral) HR: 64(Apical) RR: 18 BP: 126/77 SpO2: 96% Intake and Output 7AM Yesterday to 7AM Today Intake and Output (Last 24 hours) Intake Oral Intake 480.00 Administration Information 500.00 Output Total Summary Total Intake 980.00 Total Output 0.00 Fluid Balance 980.00 Physical Exam HEENT: Jaundiced sclera Cardiac: RRR, No murmur Lungs: CTA, good air entry Abdomen: Soft, Non tender Musculoskeletal: No gross joint deformities Extremities: No edema, good pulses Neurological: Alert, no deficits Skin: No rash, no nodules Weight Dosing Weight: 156.4 kg (01/10/23) Medications Medications (16) Active Scheduled: (4) amLODIPine 10 mg tablet 10 mg 1 tab(s), Oral, qAM indocyanine green 25 mg 5 mg 2 mL, IV Push, PREOP pharm pantoprazole 40 mg EC tablet 40 mg 1 tab(s), Oral, qDayAC piperacillin-tazobactam PMX 3.375 gram(s) 50 mL, IV Piggyback, q8h Continuous: (2) NS (0.9% nacl) 1,000 mL 1,000 mL, Intravenous, 125 mL/hr NS (0.9% nacl) 1,000 mL 1,000 mL, Intravenous, 20 mL/hr PRN: (10) acetaminophen 325 mg Tablet 650 mg 2 tab(s), Oral, q6hr albuterol - ipratropium 2.5 mg-0.5 mg/3 mL Inhal Estefany UD 3 mL, Inhalation, q4hRT guaifenesin 100 mg/5 mL 120 mL liquid 200 mg 10 mL, Oral, q4h melatonin 3 mg tablet 3 mg 1 tab(s), Oral, qHS morphine 2 mg/mL 1 mL syringe 1 mg 0.5 mL, IV Push, q3h ondansetron 2 mg/ 1 mL 2 mL INJ 4 mg 2 mL, IV Push, q4h oxycodone 5 mg tablet (immediate release) 5 mg 1 tab(s), Oral, q4h polyethylene glycol 3350 - UD packet 17 gram(s) 15 mL, Oral, qDay prochlorperazine 10 mg/2 mL vial 5 mg 1 mL, IV Push, q6h tramadol 50 mg Tablet 50 mg 1 tab(s), Oral, q4h Lab Results 01/13 06:41 WBC: 3.8 L Hgb: 13.4 Hct: 39.4 L Platelet: 261 Neutrophil %: 56.9 Glucose Level: 101 Sodium Level: 140 Potassium Level: 4.3 BUN: 15.0 Creatinine Lvl (s): 0.87 01/12 07:32 WBC: 5.3 Hgb: 13.3 Hct: 39.4 L Platelet: 238 Neutrophil %: 70.5 Glucose Level: 95 Sodium Level: 139 Potassium Level: 5.0 BUN: 19.0 Creatinine Lvl (s): 0.94 EKG No qualifying data available. Assessment/Plan Abdominal pain with jaundice Gram-negative bacteremia Suspected stump cholecystitis Suspected cholelithiasis JESUS History of recurrent choledocholithiasis History of DVT on anticoagulation Other comorbidities including hypertension hyperlipidemia and obesity Plan Patient presents with complicated biliary history and abdominal pain. LFTs elevated patient jaundiced bilirubin peaking at 6 downtrending to 2.3 today We will continue with antibiotic coverage repeat blood culture NGTD Blood cultures positive for Enterobacter and Klebsiella likely GI origin Patient developed JESUS creatinine trending to 1.6, IV fluids were started creatinine has now normalized we will continue to hold lisinopril continue with amlodipine for now Continue with pain control Continue to monitor LFTs General surgery and GI recommendations appreciated Will hold anticoagulation for now pending surgical intervention. Digitally Signed by SIMON MARK MD on 01/13/2023 04:13 PM [id number] Progress note Date of Service 01/13/2023 Chief Complaint Abdominal pain concerning for stump cholecystitis S/P ERCP Subjective This is a split shared visit between myself and Dr. Daly Patient seen sitting upright in the chair with his present at the bedside. He was eating lunchfollowing his ERCP. He denied any new complaints or significant concerns. Objective Vitals and Measurements T: 36.5 C (Oral) TMIN: 36.3 C (Temporal Artery) TMAX: 36.7 C (Oral) HR: 64(Apical) RR: 18 BP: 126/77 SpO2: 96% Intake and Output 7AM Yesterday to 7AM Today Intake and Output (Last 24 hours) Intake Administration Information 500.00 Oral Intake 480.00 Output Urine Voided 300.00 Total Summary Total Intake 980.00 Total Output 300.00 Fluid Balance 680.00 Physical Exam General: Awake, alert and oriented x4. In no apparent distress. Able to answer questions appropriately and speak in full sentences. Sitting upright in the chair. HEENT: Sclera anicteric. Heart: Regular rate and rhythm. S1 and S2 present. Lungs: Chest rise symmetrical. Respirations unlabored. Abdomen: Soft, obese/rounded and minimally tender with palpation of the RUQ. No rigidity or guarding noted. Bowel sounds present. Extremities: Freely moving. Psychiatric: Calm and cooperative. Weight Dosing Weight: 156.4 kg (01/10/23) Medications Medications (15) Active Scheduled: (3) amLODIPine 10 mg tablet 10 mg 1 tab(s), Oral, qAM pantoprazole 40 mg EC tablet 40 mg 1 tab(s), Oral, qDayAC piperacillin-tazobactam PMX 3.375 gram(s) 50 mL, IV Piggyback, q8h Continuous: (2) NS (0.9% nacl) 1,000 mL 1,000 mL, Intravenous, 125 mL/hr NS (0.9% nacl) 1,000 mL 1,000 mL, Intravenous, 20 mL/hr PRN: (10) acetaminophen 325 mg Tablet 650 mg 2 tab(s), Oral, q6hr albuterol - ipratropium 2.5 mg-0.5 mg/3 mL Inhal Estefany UD 3 mL, Inhalation, q4hRT guaifenesin 100 mg/5 mL 120 mL liquid 200 mg 10 mL, Oral, q4h melatonin 3 mg tablet 3 mg 1 tab(s), Oral, qHS morphine 2 mg/mL 1 mL syringe 1 mg 0.5 mL, IV Push, q3h ondansetron 2 mg/ 1 mL 2 mL INJ 4 mg 2 mL, IV Push, q4h oxycodone 5 mg tablet (immediate release) 5 mg 1 tab(s), Oral, q4h polyethylene glycol 3350 - UD packet 17 gram(s) 15 mL, Oral, qDay prochlorperazine 10 mg/2 mL vial 5 mg 1 mL, IV Push, q6h tramadol 50 mg Tablet 50 mg 1 tab(s), Oral, q4h Lab Results 01/13 06:41 WBC: 3.8 L Hgb: 13.4 Hct: 39.4 L Platelet: 261 Neutrophil %: 56.9 Glucose Level: 101 Sodium Level: 140 Potassium Level: 4.3 BUN: 15.0 Creatinine Lvl (s): 0.87 01/12 07:32 WBC: 5.3 Hgb: 13.3 Hct: 39.4 L Platelet: 238 Neutrophil %: 70.5 Glucose Level: 95 Sodium Level: 139 Potassium Level: 5.0 BUN: 19.0 Creatinine Lvl (s): 0.94 EKG No qualifying data available. Assessment/Plan Abdominal pain with jaundice This patient is a 62-year-old male who was admitted to the hospital on 01/10/2023 with complaints of right upper quadrant abdominal pain. He is status post ERCP with gastroenterology today. During the ERCP, the previous sphincterotomy was extended, extraction of a small amount of sludge was performed, and a stent was placed. No morning labs to review this morning. Vital signs and I/O have been reviewed. On examination, he was seen sitting upright in the chair eating his lunch with his present at the bedside. He did not appear toxic or in any acute distress. He complained of minimal right upper quadrant abdominal pain with palpation. Otherwise, he voiced no new concerns or complaints. Plan: Concern for some cholecystitis Will plan for operative intervention tomorrow with Dr. Daly. Risks versus benefits were discussed with the patient and his at the bedside by Dr. Daly and myself. They voiced understanding and were in agreement with the plan of care. He will be made n.p.o. after midnight in preparation for surgery. Repeat labs tomorrow morning Medical management per the primary medical team The case has been discussed with Dr. Daly. Please see his addendum for further details. Digitally Signed by ARNEL LEE on 01/13/2023 12:44 PM [id number] [facility] Progress note Date of Service 01/13/2023 Chief Complaint Abdominal pain concerning for stump cholecystitis S/P ERCP Subjective This is a split shared visit between myself and Dr. Daly Patient seen sitting upright in the chair with his present at the bedside. He was eating lunchfollowing his ERCP. He denied any new complaints or significant concerns. Objective Vitals and Measurements T: 36.5 C (Oral) TMIN: 36.3 C (Temporal Artery) TMAX: 36.7 C (Oral) HR: 64(Apical) RR: 18 BP: 126/77 SpO2: 96% Intake and Output 7AM Yesterday to 7AM Today Intake and Output (Last 24 hours) Intake Administration Information 500.00 Oral Intake 480.00 Output Urine Voided 300.00 Total Summary Total Intake 980.00 Total Output 300.00 Fluid Balance 680.00 Physical Exam General: Awake, alert and oriented x4. In no apparent distress. Able to answer questions appropriately and speak in full sentences. Sitting upright in the chair. HEENT: Sclera anicteric. Heart: Regular rate and rhythm. S1 and S2 present. Lungs: Chest rise symmetrical. Respirations unlabored. Abdomen: Soft, obese/rounded and minimally tender with palpation of the RUQ. No rigidity or guarding noted. Bowel sounds present. Extremities: Freely moving. Psychiatric: Calm and cooperative. Weight Dosing Weight: 156.4 kg (01/10/23) Medications Medications (15) Active Scheduled: (3) amLODIPine 10 mg tablet 10 mg 1 tab(s), Oral, qAM pantoprazole 40 mg EC tablet 40 mg 1 tab(s), Oral, qDayAC piperacillin-tazobactam PMX 3.375 gram(s) 50 mL, IV Piggyback, q8h Continuous: (2) NS (0.9% nacl) 1,000 mL 1,000 mL, Intravenous, 125 mL/hr NS (0.9% nacl) 1,000 mL 1,000 mL, Intravenous, 20 mL/hr PRN: (10) acetaminophen 325 mg Tablet 650 mg 2 tab(s), Oral, q6hr albuterol - ipratropium 2.5 mg-0.5 mg/3 mL Inhal Estefany UD 3 mL, Inhalation, q4hRT guaifenesin 100 mg/5 mL 120 mL liquid 200 mg 10 mL, Oral, q4h melatonin 3 mg tablet 3 mg 1 tab(s), Oral, qHS morphine 2 mg/mL 1 mL syringe 1 mg 0.5 mL, IV Push, q3h ondansetron 2 mg/ 1 mL 2 mL INJ 4 mg 2 mL, IV Push, q4h oxycodone 5 mg tablet (immediate release) 5 mg 1 tab(s), Oral, q4h polyethylene glycol 3350 - UD packet 17 gram(s) 15 mL, Oral, qDay prochlorperazine 10 mg/2 mL vial 5 mg 1 mL, IV Push, q6h tramadol 50 mg Tablet 50 mg 1 tab(s), Oral, q4h Lab Results 01/13 06:41 WBC: 3.8 L Hgb: 13.4 Hct: 39.4 L Platelet: 261 Neutrophil %: 56.9 Glucose Level: 101 Sodium Level: 140 Potassium Level: 4.3 BUN: 15.0 Creatinine Lvl (s): 0.87 01/12 07:32 WBC: 5.3 Hgb: 13.3 Hct: 39.4 L Platelet: 238 Neutrophil %: 70.5 Glucose Level: 95 Sodium Level: 139 Potassium Level: 5.0 BUN: 19.0 Creatinine Lvl (s): 0.94 EKG No qualifying data available. Assessment/Plan Abdominal pain with jaundice This patient is a 62-year-old male who was admitted to the hospital on 01/10/2023 with complaints of right upper quadrant abdominal pain. He is status post ERCP with gastroenterology today. During the ERCP, the previous sphincterotomy was extended, extraction of a small amount of sludge was performed, and a stent was placed. No morning labs to review this morning. Vital signs and I/O have been reviewed. On examination, he was seen sitting upright in the chair eating his lunch with his present at the bedside. He did not appear toxic or in any acute distress. He complained of minimal right upper quadrant abdominal pain with palpation. Otherwise, he voiced no new concerns or complaints. Plan: Concern for some cholecystitis Will plan for operative intervention tomorrow with Dr. Daly. Risks versus benefits were discussed with the patient and his at the bedside by Dr. Daly and myself. They voiced understanding and were in agreement with the plan of care. He will be made n.p.o. after midnight in preparation for surgery. Repeat labs tomorrow morning Medical management per the primary medical team The case has been discussed with Dr. Daly. Please see his addendum for further details. Digitally Signed by ARNEL LEE on 01/13/2023 12:44 PM [facility] [id number] Note. MICRO - Microbiology PROCEDURE: Urine Culture [*1] SOURCE: Urine BODY SITE: COLLECTED DATE/TIME: 01/11/2023 16:06 EDT RECEIVED DATE/TIME: 01/11/2023 16:24 EDT START DATE/TIME: 01/11/2023 16:24 EDT FREE TEXT SOURCE: FINAL REPORTS Final Report [] Verified Date/Time/Personnel: 01/13/2023 08:04 EDT No growth at 48 hours. PRELIMINARY REPORTS Preliminary Report [] Verified Date/Time/Personnel: 01/12/2023 09:45 EDT No growth to date Performing Locations *1: This test was performed at: [facility], [address] [place] [address], [facility]- , [facility] ([place])01-13-2023 Note. MICRO - Microbiology PROCEDURE: Blood Culture (bacterial) [*1] SOURCE: Blood BODY SITE: COLLECTED DATE/TIME: 01/10/2023 20:01 EDT RECEIVED DATE/TIME: 01/11/2023 03:49 EDT START DATE/TIME: 01/11/2023 03:49 EDT FREE TEXT SOURCE: FINAL REPORTS Final Report [] Verified Date/Time/Personnel: 01/13/2023 07:45 EDT Klebsiella pneumoniae Isolated from anaerobe bottle only. Refer to previous culture for susceptibility. [id number] collected on 01/10/23 PRELIMINARY REPORTS Preliminary Report [] Verified Date/Time/Personnel: 01/12/2023 09:42 EDT Klebsiella pneumoniae Isolated from anaerobe bottle only. Final report to follow. Preliminary Report [] Verified Date/Time/Personnel: 01/11/2023 04:59 EDT Culture has been received in lab and is no growth to date. Routine cultures are held for 5 days. STAINS GSANA [] Verified Date/Time/Personnel: 01/11/2023 15:49 EDT Gram Negative Rods Performing Locations *1: This test was performed at: [address], [facility] , [facility] ([place])01-13-2023 Note ORIGINAL HISTORY: Obstructive jaundice COMPARISON: MR cholangiogram 3 days previously FLUOROSCOPY TIME: Pain 50 seconds FLUOROSCOPY IMAGES: 9 FINDINGS: There is cannulation and injection of the common bile duct with biliary stent placement. IMPRESSION: Fluoroscopy provided to the gastroenterology service. Interpreted by: Alberto Lujan MD Preliminary Report By: Alberto Lujan MD Electronically signed By Alberto Lujan MD Dictated Date: 01/13/2023 9:23:55 AM Prelim Date: 01/13/2023 9:24:44 AM Sign Date: 01/13/2023 9:24:44 AM Ordering Provider: [facility]05-04-2023 Note ORIGINAL HISTORY: Obstructive jaundice COMPARISON: MR cholangiogram 3 days previously FLUOROSCOPY TIME: Pain 50 seconds FLUOROSCOPY IMAGES: 9 FINDINGS: There is cannulation and injection of the common bile duct with biliary stent placement. IMPRESSION: Fluoroscopy provided to the gastroenterology service. Interpreted by: Alberto Lujan MD Preliminary Report By: Alberto Lujan MD Electronically signed By Alberto Lujan MD Dictated Date: 01/13/2023 9:23:55 AM Prelim Date: 01/13/2023 9:24:44 AM Sign Date: 01/13/2023 9:24:44 AM Ordering Provider: [facility] [place]05-04-2023 Anesthesiology Consult note Patient: GUSTAVO CERDA Age: 62 years Sex: Male : 1960 Associated Diagnoses: None Author: JESUSITA DORANTES MD Postoperative Information Post Operative Info: Post op day: Post Anesthesia Care Unit. Patient location: PACU. Assessment Postanesthesia assessment Vitals: Vital signs from flowsheet : Vital Signs 01/13/2023 9:05 EDT Temperature Temporal Artery 36.3 DegC Heart Rate Monitored 75 bpm Respiratory Rate 20 br/min Systolic Blood Pressure Non-Invasive 122 mmHg Diastolic Blood Pressure Non-Invasive 50 mmHg Mean Arterial Pressure (NBP) 67 mmHg Reason For Taking VItal Signs Procedure post-care 01/13/2023 9:00 EDT Heart Rate Monitored 79 bpm bpm Respiratory Rate - Anes 10 br/min br/min 01/13/2023 8:59 EDT Systolic Blood Pressure Non-Invasive 130 mmHg mmHg Diastolic Blood Pressure Non-Invasive 80 mmHg mmHg 01/13/2023 8:56 EDT Systolic Blood Pressure Non-Invasive 126 mmHg mmHg Diastolic Blood Pressure Non-Invasive 76 mmHg mmHg 01/13/2023 8:55 EDT Heart Rate Monitored 84 bpm bpm Respiratory Rate - Anes 11 br/min br/min 01/13/2023 8:53 EDT Systolic Blood Pressure Non-Invasive 121 mmHg mmHg Diastolic Blood Pressure Non-Invasive 84 mmHg mmHg 01/13/2023 8:50 EDT Heart Rate Monitored 72 bpm bpm Respiratory Rate - Anes 26 br/min br/min Systolic Blood Pressure Non-Invasive 109 mmHg mmHg Diastolic Blood Pressure Non-Invasive 59 mmHg mmHg 01/13/2023 8:47 EDT Systolic Blood Pressure Non-Invasive 93 mmHg mmHg Diastolic Blood Pressure Non-Invasive 51 mmHg mmHg 01/13/2023 8:45 EDT Temperature (Route Not Specified) 36.5 DegC DegC Heart Rate Monitored 72 bpm bpm Respiratory Rate - Anes 15 br/min br/min 01/13/2023 8:44 EDT Systolic Blood Pressure Non-Invasive 105 mmHg mmHg Diastolic Blood Pressure Non-Invasive 65 mmHg mmHg 01/13/2023 8:41 EDT Systolic Blood Pressure Non-Invasive 105 mmHg mmHg Diastolic Blood Pressure Non-Invasive 57 mmHg mmHg 01/13/2023 8:40 EDT Heart Rate Monitored 70 bpm bpm Respiratory Rate - Anes 15 br/min br/min 01/13/2023 8:38 EDT Systolic Blood Pressure Non-Invasive 104 mmHg mmHg Diastolic Blood Pressure Non-Invasive 64 mmHg mmHg 01/13/2023 8:35 EDT Heart Rate Monitored 70 bpm bpm Respiratory Rate - Anes 14 br/min br/min Systolic Blood Pressure Non-Invasive 95 mmHg mmHg Diastolic Blood Pressure Non-Invasive 57 mmHg mmHg 01/13/2023 8:32 EDT Systolic Blood Pressure Non-Invasive 81 mmHg mmHg Diastolic Blood Pressure Non-Invasive 45 mmHg mmHg 01/13/2023 8:30 EDT Temperature (Route Not Specified) 36.5 DegC DegC Heart Rate Monitored 72 bpm bpm Respiratory Rate - Anes 23 br/min br/min 01/13/2023 8:29 EDT Systolic Blood Pressure Non-Invasive 111 mmHg mmHg Diastolic Blood Pressure Non-Invasive 86 mmHg mmHg 01/13/2023 8:26 EDT Systolic Blood Pressure Non-Invasive 111 mmHg mmHg Diastolic Blood Pressure Non-Invasive 86 mmHg mmHg 01/13/2023 8:25 EDT Respiratory Rate - Anes 0 br/min br/min 01/13/2023 8:23 EDT Heart Rate Monitored 64 bpm bpm Systolic Blood Pressure Non-Invasive 128 mmHg mmHg Diastolic Blood Pressure Non-Invasive 72 mmHg mmHg 01/13/2023 8:20 EDT Temperature (Route Not Specified) 36.5 DegC DegC Heart Rate Monitored 56 bpm bpm Respiratory Rate - Anes 10 br/min br/min 01/13/2023 8:19 EDT Systolic Blood Pressure Non-Invasive 91 mmHg mmHg Diastolic Blood Pressure Non-Invasive 65 mmHg mmHg 01/13/2023 8:16 EDT Systolic Blood Pressure Non-Invasive 88 mmHg mmHg Diastolic Blood Pressure Non-Invasive 47 mmHg mmHg 01/13/2023 8:15 EDT Heart Rate Monitored 74 bpm bpm Respiratory Rate - Anes 42 br/min br/min 01/13/2023 8:13 EDT Systolic Blood Pressure Non-Invasive 104 mmHg mmHg Diastolic Blood Pressure Non-Invasive 50 mmHg mmHg 01/13/2023 8:10 EDT Heart Rate Monitored 71 bpm bpm Respiratory Rate - Anes 0 br/min br/min Systolic Blood Pressure Non-Invasive 136 mmHg mmHg Diastolic Blood Pressure Non-Invasive 64 mmHg mmHg 01/13/2023 6:44 EDT Temperature Oral 36.7 DegC Peripheral Pulse Rate 55 bpm LOW Respiratory Rate 18 br/min Systolic Blood Pressure Non-Invasive 119 mmHg Diastolic Blood Pressure Non-Invasive 68 mmHg 01/13/2023 4:32 EDT Temperature Oral 36.7 DegC Apical Heart Rate 55 bpm LOW Respiratory Rate 20 br/min Systolic Blood Pressure Non-Invasive 133 mmHg Diastolic Blood Pressure Non-Invasive 77 mmHg Reason For Taking VItal Signs Routine 01/12/2023 14:43 EDT Temperature Axillary 36.3 DegC Peripheral Pulse Rate 62 bpm Respiratory Rate 18 br/min Systolic Blood Pressure Non-Invasive 121 mmHg Diastolic Blood Pressure Non-Invasive 74 mmHg 01/12/2023 9:37 EDT Respiratory Rate 18 br/min Systolic Blood Pressure Non-Invasive 122 mmHg Diastolic Blood Pressure Non-Invasive 62 mmHg 01/12/2023 7:58 EDT Respiratory Rate 18 br/min 01/12/2023 6:52 EDT Temperature Oral 36.6 DegC Peripheral Pulse Rate 67 bpm Respiratory Rate 18 br/min Systolic Blood Pressure Non-Invasive 116 mmHg Diastolic Blood Pressure Non-Invasive 67 mmHg . Mental status: at preoperative baseline. Respiratory function: respirations are non-labored, Stable. Respiratory support: none. CV function: Stable. Cardiovascular support: none. Pain: Satisfactory. Nausea status: Satisfactory. Postoperative hydration status: within normal limits. Notes: Patient is sufficiently recovered from anesthesia to participate in the evaluation. No follow-up care needed. No complications post-anesthesia.. Digitally Signed by JESUSITA DORANTES MD on 01/13/2023 09:18 AM [id number] Note Date of Service 01/13/2023 Procedure Name ERCP. Referring Provider Hospitalist Consent Informed consent obtained after explaining to the patient, indications, benefits, alternative test,risks including but not limited to bleeding, perforation, medication reactions and phlebitis. Indication Elevated liver enzymes and abdominal pain in this patient with multiple ERCPs and open cholecystectomy. Location OR. Pre-Procedure Exam Not in acute distress. Procedural Sedation General anesthesia. Technique Olympus video side-viewing therapeutic endoscope was advanced under direct vision to the second portion of duodenum. Likely a short segment French's esophagus. Small hiatal hernia. Mild erosive antral gastritis. Normal-appearing major papilla. Cannulation of the common bile duct was performed using a sphincterotome, contrast injected revealed a slightly dilated common bile duct and common hepatic sarah at 10 to 12 mm in diameter. Normal-appearing right and left hepatic ducts. Cystic duct and gallbladder remnant were not identified. Previous sphincterotomy was extended. Multiple balloon sweeps were performed with extraction of small amount of sludge. A 10 [place] 7 cm biliary stent was introduced with adequate decompression of the biliary system. Post-Procedure Exam Not in acute distress. Findings 1. Likely a short segment French's esophagus. 2. Small hiatal hernia. 3. Mild erosive antral gastritis. 4. Normal-appearing major papilla. 5. Slightly dilated common bile duct and common hepatic sarah at 10 to 12 mm in diameter. 6. Normal-appearing right and left hepatic ducts. Cystic duct and gallbladder remnant were not identified. 7. Previous sphincterotomy was extended. 8. Multiple balloon sweeps were performed with extraction of small amount of sludge. 9. A 10 [place] 7 cm biliary stent was introduced with adequate decompression of the biliary system. Complications No immediate complications. Estimated Blood Loss No blood loss. Follow Up/Recommendation 1. Follow-up clinically. 2. Surgical follow-up. 3. Repeat ERCP in 3 months for stent removal. 4. Maintain on PPI. 5. Follow-up with us and follow-up with referring physician. Digitally Signed by MD PAULA QUEZADA MD on 01/13/2023 09:02 AM [id number] Note Date of Service 01/12/2023 Chief Complaint Abdominal pain jaundice Subjective 62-year-old male PMH HTN, HLD, history of DVT on anticoagulation, history of partial cholecystectomy with ongoing episodes of bile leakage requiring multiple biliary stents. Patient presented [place] a transfer from [place] with severe epigastric/abdominal pain nausea, vomiting of biliarysubstance and food. Patient states these symptoms consistent with prior episodes where he required ERCP. Work-up included CBC within normal limits, BMP within normal limits, total bilirubin and LFTs elevated lipase 18. CT abdomen and pelvis with contrast concerning for cholelithiasis with cholecystitis no biliary ductal dilation. 6 mm left lower lobe nodule unchanged. Abdominal ultrasound showed largely stable appearing gallbladder with folded/septated contour and trace pericholecystic fluid. Findings likely reflecting acute cholecystitis. Common bile duct appeared dilated measuring 13 mm approximately. EKG sinus rhythm with nonspecific ST change. Patient has been started on IV antibiotics GI and general surgery have been consulted. Blood culture positive for gram-negative rods repeat culture has been ordered. Creatinine was briefly elevated to 1.6 patient started on IV fluids creatinine has normalized. Patient was seen and examined Patient stating that pain is well controlled Patient remains afebrile as of this morning hemodynamically stable Discussed treatment plan with patient and at bedside answered all questions Objective Vitals and Measurements T: 36.3 C (Axillary) TMIN: 36.3 C (Axillary) TMAX: 36.7 C (Oral) HR: 62 RR: 18 BP: 121/74 SpO2: 96% Intake and Output 7AM Yesterday to 7AM Today Intake and Output (Last 24 hours) Intake Oral Intake 480.00 Output Urine Voided 1200.00 Total Summary Total Intake 480.00 Total Output 1200.00 Fluid Balance -720.00 Physical Exam HEENT: Jaundiced sclera Cardiac: RRR, No murmur Lungs: CTA, good air entry Abdomen: Soft, Non tender Musculoskeletal: No gross joint deformities Extremities: No edema, good pulses Neurological: Alert, no deficits Skin: No rash, no nodules Weight Dosing Weight: 156.4 kg (01/10/23) Medications Medications (15) Active Scheduled: (3) amLODIPine 10 mg tablet 10 mg 1 tab(s), Oral, qAM pantoprazole 40 mg EC tablet 40 mg 1 tab(s), Oral, qDayAC piperacillin-tazobactam PMX 3.375 gram(s) 50 mL, IV Piggyback, q8h Continuous: (2) NS (0.9% nacl) 1,000 mL 1,000 mL, Intravenous, 125 mL/hr NS (0.9% nacl) 1,000 mL 1,000 mL, Intravenous, 20 mL/hr PRN: (10) acetaminophen 325 mg Tablet 650 mg 2 tab(s), Oral, q6hr albuterol - ipratropium 2.5 mg-0.5 mg/3 mL Inhal Estefany UD 3 mL, Inhalation, q4hRT guaifenesin 100 mg/5 mL 120 mL liquid 200 mg 10 mL, Oral, q4h melatonin 3 mg tablet 3 mg 1 tab(s), Oral, qHS morphine 2 mg/mL 1 mL syringe 1 mg 0.5 mL, IV Push, q3h ondansetron 2 mg/ 1 mL 2 mL INJ 4 mg 2 mL, IV Push, q4h oxycodone 5 mg tablet (immediate release) 5 mg 1 tab(s), Oral, q4h polyethylene glycol 3350 - UD packet 17 gram(s) 15 mL, Oral, qDay prochlorperazine 10 mg/2 mL vial 5 mg 1 mL, IV Push, q6h tramadol 50 mg Tablet 50 mg 1 tab(s), Oral, q4h Lab Results 01/12 07:32 WBC: 5.3 Hgb: 13.3 Hct: 39.4 L Platelet: 238 Neutrophil %: 70.5 Glucose Level: 95 Sodium Level: 139 Potassium Level: 5.0 BUN: 19.0 Creatinine Lvl (s): 0.94 01/11 06:29 WBC: 9.0 Hgb: 13.2 Hct: 38.9 L Platelet: 240 Neutrophil %: 71.8 Glucose Level: 111 Sodium Level: 131 L Potassium Level: 4.2 BUN: 28.0 H Creatinine Lvl (s): 1.66 H EKG No qualifying data available. Assessment/Plan Abdominal pain with jaundice Gram-negative bacteremia Suspected stump cholecystitis Suspected cholelithiasis JESUS History of recurrent choledocholithiasis History of DVT on anticoagulation Other comorbidities including hypertension hyperlipidemia and obesity Plan Patient presents with complicated biliary history and abdominal pain. LFTs elevated patient jaundiced bilirubin peaking at 6 downtrending to 4 today We will continue with antibiotic coverage repeat blood culture Blood cultures positive for Enterobacter and Klebsiella likely GI origin Patient developed JESUS creatinine trending to 1.6, IV fluids were started creatinine has now normalized we will continue to hold lisinopril continue with amlodipine for now Continue with pain control Continue to monitor LFTs General surgery and GI recommendations appreciated Will hold anticoagulation for now pending surgical intervention. Orders: Blood Culture (bacterial) Digitally Signed by SIMON MARK MD on 01/12/2023 06:09 PM [id number] [facility] Progress note Date of Service 01/12/2023 Chief Complaint Concern for stump cholecystitis Subjective This is a split shared visit between myself and Dr. Daly Patient seen resting upright in the chair earlier this morning. He denied significant overnight events or concerns. He continues to have right upper quadrant abdominal pain. Objective Vitals and Measurements T: 36.6 C (Oral) TMIN: 36.6 C (Oral) TMAX: 36.7 C (Oral) HR: 67 RR: 18 BP: 122/62 SpO2: 96% Intake and Output 7AM Yesterday to 7AM Today Intake and Output (Last 24 hours) Intake Oral Intake 480.00 Output Urine Voided 900.00 Total Summary Total Intake 480.00 Total Output 900.00 Fluid Balance -420.00 Physical Exam General: Awake, alert and oriented x4. In no apparent distress. Able to answer questions appropriately and speak in full sentences. Sitting upright in the chair. HEENT: Sclera anicteric. Heart: Regular rate and rhythm. S1 and S2 present. Lungs: Chest rise symmetrical. Respirations unlabored. Abdomen: Soft, obese/rounded and minimally tender with palpation of the RUQ. No rigidity or guarding noted. Bowel sounds present. Extremities: Freely moving. Psychiatric: Calm and cooperative. Weight Dosing Weight: 156.4 kg (01/10/23) Medications Medications (15) Active Scheduled: (3) amLODIPine 10 mg tablet 10 mg 1 tab(s), Oral, qAM pantoprazole 40 mg EC tablet 40 mg 1 tab(s), Oral, qDayAC piperacillin-tazobactam PMX 3.375 gram(s) 50 mL, IV Piggyback, q8h Continuous: (2) NS (0.9% nacl) 1,000 mL 1,000 mL, Intravenous, 125 mL/hr NS (0.9% nacl) 1,000 mL 1,000 mL, Intravenous, 20 mL/hr PRN: (10) acetaminophen 325 mg Tablet 650 mg 2 tab(s), Oral, q6hr albuterol - ipratropium 2.5 mg-0.5 mg/3 mL Inhal Estefany UD 3 mL, Inhalation, q4hRT guaifenesin 100 mg/5 mL 120 mL liquid 200 mg 10 mL, Oral, q4h melatonin 3 mg tablet 3 mg 1 tab(s), Oral, qHS morphine 2 mg/mL 1 mL syringe 1 mg 0.5 mL, IV Push, q3h ondansetron 2 mg/ 1 mL 2 mL INJ 4 mg 2 mL, IV Push, q4h oxycodone 5 mg tablet (immediate release) 5 mg 1 tab(s), Oral, q4h polyethylene glycol 3350 - UD packet 17 gram(s) 15 mL, Oral, qDay prochlorperazine 10 mg/2 mL vial 5 mg 1 mL, IV Push, q6h tramadol 50 mg Tablet 50 mg 1 tab(s), Oral, q4h Lab Results 01/12 07:32 WBC: 5.3 Hgb: 13.3 Hct: 39.4 L Platelet: 238 Neutrophil %: 70.5 Glucose Level: 95 Sodium Level: 139 Potassium Level: 5.0 BUN: 19.0 Creatinine Lvl (s): 0.94 01/11 06:29 WBC: 9.0 Hgb: 13.2 Hct: 38.9 L Platelet: 240 Neutrophil %: 71.8 Glucose Level: 111 Sodium Level: 131 L Potassium Level: 4.2 BUN: 28.0 H Creatinine Lvl (s): 1.66 H EKG No qualifying data available. Assessment/Plan Abdominal pain with jaundice This patient is a 62-year-old male admitted to the hospital on 01/10/2023 with complaints of right upper quadrant abdominal pain concerning for stump cholecystitis. He is to undergo an ERCP tomorrow with gastroenterology secondary to hyperbilirubinemia with associated elevation of his alk phos, AST, and ALT. On examination, he was seen sitting upright in the chair. He did not appear toxic or in any acute distress. He complained of minimal right upper quadrant abdominal pain. Otherwise, he voiced no new concerns. Plan: 1. Continue to monitor LFTs. 2. Await ERCP results tomorrow. 3. At this time the tentative plan is to take the patient to the operating room on 01/14/2023for a partial cholecystectomy. Patient voiced understanding and was in agreement with the plan of care. The case has been discussed with Dr. Daly. Please see his addendum for further details. Digitally Signed by ARNEL LEE on 01/12/2023 12:28 PM Digitally Signed by ARNEL LEE on 01/12/2023 12:28 PM [id number] [facility] Progress note Date of Service 01/12/2023 Chief Complaint Concern for stump cholecystitis Subjective This is a split shared visit between myself and Dr. Daly Patient seen resting upright in the chair earlier this morning. He denied significant overnight events or concerns. He continues to have right upper quadrant abdominal pain. Objective Vitals and Measurements T: 36.6 C (Oral) TMIN: 36.6 C (Oral) TMAX: 36.7 C (Oral) HR: 67 RR: 18 BP: 122/62 SpO2: 96% Intake and Output 7AM Yesterday to 7AM Today Intake and Output (Last 24 hours) Intake Oral Intake 480.00 Output Urine Voided 900.00 Total Summary Total Intake 480.00 Total Output 900.00 Fluid Balance -420.00 Physical Exam General: Awake, alert and oriented x4. In no apparent distress. Able to answer questions appropriately and speak in full sentences. Sitting upright in the chair. HEENT: Sclera anicteric. Heart: Regular rate and rhythm. S1 and S2 present. Lungs: Chest rise symmetrical. Respirations unlabored. Abdomen: Soft, obese/rounded and minimally tender with palpation of the RUQ. No rigidity or guarding noted. Bowel sounds present. Extremities: Freely moving. Psychiatric: Calm and cooperative. Weight Dosing Weight: 156.4 kg (01/10/23) Medications Medications (15) Active Scheduled: (3) amLODIPine 10 mg tablet 10 mg 1 tab(s), Oral, qAM pantoprazole 40 mg EC tablet 40 mg 1 tab(s), Oral, qDayAC piperacillin-tazobactam PMX 3.375 gram(s) 50 mL, IV Piggyback, q8h Continuous: (2) NS (0.9% nacl) 1,000 mL 1,000 mL, Intravenous, 125 mL/hr NS (0.9% nacl) 1,000 mL 1,000 mL, Intravenous, 20 mL/hr PRN: (10) acetaminophen 325 mg Tablet 650 mg 2 tab(s), Oral, q6hr albuterol - ipratropium 2.5 mg-0.5 mg/3 mL Inhal Estefany UD 3 mL, Inhalation, q4hRT guaifenesin 100 mg/5 mL 120 mL liquid 200 mg 10 mL, Oral, q4h melatonin 3 mg tablet 3 mg 1 tab(s), Oral, qHS morphine 2 mg/mL 1 mL syringe 1 mg 0.5 mL, IV Push, q3h ondansetron 2 mg/ 1 mL 2 mL INJ 4 mg 2 mL, IV Push, q4h oxycodone 5 mg tablet (immediate release) 5 mg 1 tab(s), Oral, q4h polyethylene glycol 3350 - UD packet 17 gram(s) 15 mL, Oral, qDay prochlorperazine 10 mg/2 mL vial 5 mg 1 mL, IV Push, q6h tramadol 50 mg Tablet 50 mg 1 tab(s), Oral, q4h Lab Results 01/12 07:32 WBC: 5.3 Hgb: 13.3 Hct: 39.4 L Platelet: 238 Neutrophil %: 70.5 Glucose Level: 95 Sodium Level: 139 Potassium Level: 5.0 BUN: 19.0 Creatinine Lvl (s): 0.94 01/11 06:29 WBC: 9.0 Hgb: 13.2 Hct: 38.9 L Platelet: 240 Neutrophil %: 71.8 Glucose Level: 111 Sodium Level: 131 L Potassium Level: 4.2 BUN: 28.0 H Creatinine Lvl (s): 1.66 H EKG No qualifying data available. Assessment/Plan Abdominal pain with jaundice This patient is a 62-year-old male admitted to the hospital on 01/10/2023 with complaints of right upper quadrant abdominal pain concerning for stump cholecystitis. He is to undergo an ERCP tomorrow with gastroenterology secondary to hyperbilirubinemia with associated elevation of his alk phos, AST, and ALT. On examination, he was seen sitting upright in the chair. He did not appear toxic or in any acute distress. He complained of minimal right upper quadrant abdominal pain. Otherwise, he voiced no new concerns. Plan: 1. Continue to monitor LFTs. 2. Await ERCP results tomorrow. 3. At this time the tentative plan is to take the patient to the operating room on 01/14/2023for a partial cholecystectomy. Patient voiced understanding and was in agreement with the plan of care. The case has been discussed with Dr. Daly. Please see his addendum for further details. Digitally Signed by ARNEL LEE on 01/12/2023 12:28 PM Digitally Signed by ARNEL LEE on 01/12/2023 12:28 PM [id number] Gastroenterology Progress note Date of Service January 12, 2023 Chief Complaint Retained cystic duct with dilation and suspected stones, recurrent biliary obstruction Venu Cerda is a 62-year-old male sitting up in chair appears somewhat better today. He has lessdrowsiness and fatigue. The right upper quadrant pain is starting to improve. Taking sips of clear liquids without nausea or vomiting. Urine remains dark. No chest pain or shortness of breath. Still has lower extremity edema but no cramps. Objective Vitals and Measurements T: 36.6 C (Oral) TMIN: 36.6 C (Oral) TMAX: 36.7 C (Oral) HR: 67 RR: 18 BP: 122/62 SpO2: 96% Intake and Output 7AM Yesterday to 7AM Today Intake and Output (Last 24 hours) Intake Oral Intake 480.00 Output Urine Voided 900.00 Total Summary Total Intake 480.00 Total Output 900.00 Fluid Balance -420.00 Physical Exam Alert and oriented x3. Skin: Pale, warm, dry slightly jaundiced, normal hair pattern. HEENT: Pupilsequal and reactive to light with scleral jaundice noted. Oral mucosal membranes pink and moist. No palpable thyroid mass. Lungs: Diminished to the bases. Cardiac: S1, S2 regular systolic murmur auscultated. +2 bilateral lower extremity edema. GI: Abdomen rounded slightly firm with bowel sounds present x4. Surgical scarring noted. No hepatomegaly or splenomegaly. No bruits auscultated. : Voiding. Musculoskeletal: Upper and lower extremities equal. Neurological: Cranial nerves intact. Weight Dosing Weight: 156.4 kg (01/10/23) Medications Medications (15) Active Scheduled: (3) amLODIPine 10 mg tablet 10 mg 1 tab(s), Oral, qAM pantoprazole 40 mg EC tablet 40 mg 1 tab(s), Oral, qDayAC piperacillin-tazobactam PMX 3.375 gram(s) 50 mL, IV Piggyback, q8h Continuous: (2) NS (0.9% nacl) 1,000 mL 1,000 mL, Intravenous, 125 mL/hr NS (0.9% nacl) 1,000 mL 1,000 mL, Intravenous, 20 mL/hr PRN: (10) acetaminophen 325 mg Tablet 650 mg 2 tab(s), Oral, q6hr albuterol - ipratropium 2.5 mg-0.5 mg/3 mL Inhal Estefany UD 3 mL, Inhalation, q4hRT guaifenesin 100 mg/5 mL 120 mL liquid 200 mg 10 mL, Oral, q4h melatonin 3 mg tablet 3 mg 1 tab(s), Oral, qHS morphine 2 mg/mL 1 mL syringe 1 mg 0.5 mL, IV Push, q3h ondansetron 2 mg/ 1 mL 2 mL INJ 4 mg 2 mL, IV Push, q4h oxycodone 5 mg tablet (immediate release) 5 mg 1 tab(s), Oral, q4h polyethylene glycol 3350 - UD packet 17 gram(s) 15 mL, Oral, qDay prochlorperazine 10 mg/2 mL vial 5 mg 1 mL, IV Push, q6h tramadol 50 mg Tablet 50 mg 1 tab(s), Oral, q4h Lab Results 01/12 07:32 WBC: 5.3 Hgb: 13.3 Hct: 39.4 L Platelet: 238 Neutrophil %: 70.5 Glucose Level: 95 Sodium Level: 139 Potassium Level: 5.0 BUN: 19.0 Creatinine Lvl (s): 0.94 01/11 06:29 WBC: 9.0 Hgb: 13.2 Hct: 38.9 L Platelet: 240 Neutrophil %: 71.8 Glucose Level: 111 Sodium Level: 131 L Potassium Level: 4.2 BUN: 28.0 H Creatinine Lvl (s): 1.66 H 01/12/2023 hepatic panel: Total bilirubin 4.2, alk phos 189, AST 76, ALT 286 01/11/2023 hepatic panel: Total bilirubin 4.6, alk phos 185, AST 142, ALT 377 Imaging Results and Diagnostics 01/10/2023 MRCP: Large tubular structure extending from the common hepatic duct to the gallbladder fossa that is dilated with possible stones. No biliary dilatation. EKG No qualifying data available. Assessment/Plan Abdominal pain with jaundice Retained cystic duct with dilation and suspected stones: Recurrent biliary obstruction with multiple ERCPs in the past. MRCP is showing the cystic duct from hepatic duct to gallbladder fossa tubular enlarged with suspected dilation secondary to stones. Liver enzymes are elevated but are starting totrend down. Patient has less pain today. -N.p.o. after midnight -For ERCP tomorrow morning Digitally Signed by JULIANA MOSQUEDA on 01/12/2023 11:29 AM [facility] [id number] Surgery Consult note Date of Service 01/11/2023 Reason for Consultation Concern for stump cholecystitis Referring Physician Dr. Armenta History of Present Illness This is a split shared visit between myself and Dr. Daly This patient is a 62-year-old male [facility] with complaints of right upper quadrant abdominal pain that began the evening prior. He complained of associated nausea without emesis. Of note, the patient is a status post laparoscopic converted to open partial cholecystectomy in February of [address] Alex at [facility] and postoperatively has had multiple ERCPs secondary to cystic duct leak as well as common bile duct leak. While in the [place] emergency department, an ultrasound of the abdomen was performed showing a largely stable appearance of the gallbladder when compared to recent CT scan concerning for acute cholecystitis with dilation of the common bile duct measuring 13 mm per the report. His CT scan of the abdomen and pelvis showed cholelithiasis with cholecystitis without biliary ductal dilatation. His laboratory data was negative for leukocytosis; however, his total bilirubin was elevated at 1.5 with associated transaminitis. His lipase level was normal at 18. He was seen and evaluated by gastroenterology with recommendations for an MRCP. He underwent the MRCP yesterday afternoon which showed no biliary dilatation and no evidence for choledocholithiasis; however, there was a large tubular septated structure extending from the common hepatic duct of the gallbladder fossa that was suspected to be a large and mildly dilated cystic duct remnant and there was suspicion for retained stones within the cystic duct remnant per radiology's interpretation. Given these findings, general surgery was consulted secondary to concern for stump cholecystitis. On examination, he was seen sitting upright in the chair with his present at the bedside. He complained of mild right upper quadrant abdominal pain. His abdomen was obese, rounded, and minimallytender with palpation. He has multiple large healed scars from previous abdominal surgeries. His laboratory data has been reviewed over the last several days and his total bilirubin this morning was noted to be 6.6, from 3.2 yesterday, his alk phos was elevated at 185 and his AST and ALT were improved at 142 and 377. Review of Systems All other pertinent positives and negatives are present in the HPI. All other systems are reviewed as negative unless otherwise previously mentioned. Physical Exam Vitals and Measurements T: 36.5 C (Oral) TMIN: 36.5 C (Oral) TMAX: 37.7 C (Oral) HR: 60 RR: 18 BP: 84/51 SpO2: 95% Weight Dosing Weight: 156.4 kg (01/10/23) General: Awake, alert and oriented x4. In no apparent distress. Able to answer questions appropriately and speak in full sentences. Sitting upright in the chair. HEENT: Sclera anicteric. Heart: Regular rate and rhythm. S1 and S2 present. Lungs: Chest rise symmetrical. Respirations unlabored. Abdomen: Soft, obese/rounded and minimally tender with palpation. No rigidity or guarding noted. Bowel sounds present. Extremities: Freely moving. Psychiatric: Calm and cooperative. Lab Results 01/11 06:29 WBC: 9.0 Hgb: 13.2 Hct: 38.9 L Platelet: 240 Neutrophil %: 71.8 Glucose Level: 111 Sodium Level: 131 L Potassium Level: 4.2 BUN: 28.0 H Creatinine Lvl (s): 1.66 H 01/10 10:26 WBC: 10.6 Hgb: 14.4 Hct: 42.9 Platelet: 287 Neutrophil %: 86.4 H Protime: 12.1 PT International Ratio: 1.0 Glucose Level: 118 H Sodium Level: 138 Potassium Level: 4.5 BUN: 15.0 Creatinine Lvl (s): 0.82 Imaging Results and Diagnostics XR Foreign Body Loc Eye Bilateral Result Date: January 10, 2023 Verified By: CHRISTELLE CASILLAS MD CLINICAL STATEMENT: IMPRESSION: No metallic intraorbital foreign body. MRI MRPC Result Date: January 10, 2023 Verified By: MARRY ARGUETA MD CLINICAL STATEMENT: IMPRESSION: 1. No biliary dilatation and no evidence for choledocholithiasis. 2. Large tubular septated structure extending from the common hepatic duct of the gallbladder fossa. I suspect that this represents a large and mildly dilated cystic duct remnant. There is suspicion for retained stones within the cystic duct remnant as well. Assessment/Plan This patient is a 62-year-old male who is status post partial cholecystectomy in February of 2022 as well as multiple ERCPs secondary to a cystic duct and common bile duct leak who presented to the [facility] emergency department on 01/09/2023 with complaints of right upper quadrant abdominal pain with associated nausea. He was transferred to [facility] and was admitted to the regular floor under the medical service with initial consultation to gastroenterology. An MRCP was completed and showed no biliary dilatation and no evidence for choledocholithiasis; however, there was a large tubular septated structure extending from the common hepatic duct of the gallbladder fossa that was suspected to be a large and mildly dilated cystic duct remnant and there was suspicion for retained stones within the cystic duct remnant per radiology's interpretation. Laboratory data, vital signs, and I/O have been reviewed. His total bilirubin is elevated at 6.6. On examination, he was seen resting in the chair. He did not appear toxic or in any acute distress.He complained of minimal pain with palpation of the right upper quadrant. His abdomen was obese, rounded, and his bowel sounds are present. Plan: 1. Concern for stump cholecystitis Spoke with GI in regards to his upward trending total bilirubin and they are in agreement with proceeding with an ERCP Continue to monitor liver function tests Will tentatively plan for surgical intervention on 01/14/2023 Would recommend a low-fat diet 2. Medical management per the primary medical team 3. Encouraged mobilization as able Thank you for allowing us to participate in the care of this patient. The case has been discussed with Dr. Daly. Please see his addendum for further details. Problem List/Past Medical History Ongoing Arthritis Bile duct leak High blood pressure Pancreatitis Sleep apnea Procedure/Surgical History Biliary stent: 05/2022 ERCP: 03/2022 Cholecystectomy: 2021 Liver: 1990 Trauma: 1968 Tonsillectomy and adenoidectomy Arthroscopic trimming of meniscus Colonoscopy Rotator cuff repair Medications Inpatient amLODIPine, 10 mg= 1 tab(s), Oral, qAM DuoNeb, 3 mL, Inhalation, q4hRT, PRN guaiFENesin, 200 mg= 10 mL, Oral, q4h, PRN lisinopril, 20 mg= 1 tab(s), Oral, qAM melatonin, 3 mg= 1 tab(s), Oral, qHS, PRN Miralax Powder Packet, 17 gram(s)= 15 mL, Oral, qDay, PRN morphine, 1 mg= 0.5 mL, IV Push, q3h, PRN Normal Saline 1,000 mL, 1000 mL, Intravenous NS 1,000 mL, 1000 mL, Intravenous oxyCODONE 5 mg oral tablet ( IMMEDIATE release ), 5 mg= 1 tab(s), Oral, q4h, PRN pantoprazole, 40 mg= 1 tab(s), Oral, qDayAC prochlorperazine, 5 mg= 1 mL, IV Push, q6h, PRN Tylenol, 650 mg= 2 tab(s), Oral, q4h, PRN Ultram, 50 mg= 1 tab(s), Oral, q4h, PRN Zofran, 4 mg= 2 mL, IV Push, q4h, PRN Zosyn, 3.375 gram(s)= 50 mL, IV Piggyback, q8h Home amLODIPine 10 mg oral tablet, 10 mg= 1 tab(s), Oral, qAM lisinopril 20 mg oral tablet, 20 mg= 1 tab(s), Oral, qAM omega-3 fish oil 1000 mg oral capsule, 1000 mg= 1 cap(s), Oral, qAM, On hold for Surgery Allergies NKA Social History Alcohol - Denies Alcohol Use, 05/25/2022 Use: Never., 03/31/2022 Home/Environment Safe place to go: Yes., 06/01/2022 Domestic Concerns: Denies. Living situation: Home/Independent. Current Home Treatments bipap. Spouse Name: Keisha. Marital Status: ., 05/25/2022 Nutrition/Health Type of diet: Regular. Appetite Good. Eating Difficulties None., 03/31/2022 Substance Abuse - Denies Substance Abuse, 05/25/2022 Use: Never., 03/31/2022 Tobacco - Denies Tobacco Use, 05/25/2022 Nicotine Use: Never (less than 100 in lifetime), Smoker, current status unknown., 03/31/2022 Family History Cancer: Sister. Cancer of colon: Father. Immunizations No qualifying data available. Digitally Signed by ARNEL LEE on 01/11/2023 12:24 PM [id number] Surgery Consult note Date of Service 01/11/2023 Reason for Consultation Concern for stump cholecystitis Referring Physician Dr. Armenta History of Present Illness This is a split shared visit between myself and Dr. Daly This patient is a 62-year-old male who [facility] on 01/09/2023 with complaints of right upper quadrant abdominal pain that began the evening prior. He complained of associated nausea without emesis. Of note, the patient is a status post laparoscopic converted to open partial cholecystectomy in February of [address] Alex at [facility] and postoperatively has had multiple ERCPs secondary to cystic duct leak as well as common bile duct leak. While in the [facility] emergency department, an ultrasound of the abdomen was performed showing a largely stable appearance of the gallbladder when compared to recent CT scan concerning for acute cholecystitis with dilation of the common bile duct measuring 13 mm per the report. His CT scan of the abdomen and pelvis showed cholelithiasis with cholecystitis without biliary ductal dilatation. His laboratory data was negative for leukocytosis; however, his total bilirubin was elevated at 1.5 with associated transaminitis. His lipase level was normal at 18. He was seen and evaluated by gastroenterology with recommendations for an MRCP. He underwent the MRCP yesterday afternoon which showed no biliary dilatation and no evidence for choledocholithiasis; however, there was a large tubular septated structure extending from the common hepatic duct of the gallbladder fossa that was suspected to be a large and mildly dilated cystic duct remnant and there was suspicion for retained stones within the cystic duct remnant per radiology's interpretation. Given these findings, general surgery was consulted secondary to concern for stump cholecystitis. On examination, he was seen sitting upright in the chair with his present at the bedside. He complained of mild right upper quadrant abdominal pain. His abdomen was obese, rounded, and minimallytender with palpation. He has multiple large healed scars from previous abdominal surgeries. His laboratory data has been reviewed over the last several days and his total bilirubin this morning was noted to be 6.6, from 3.2 yesterday, his alk phos was elevated at 185 and his AST and ALT were improved at 142 and 377. Review of Systems All other pertinent positives and negatives are present in the HPI. All other systems are reviewed as negative unless otherwise previously mentioned. Physical Exam Vitals and Measurements T: 36.5 C (Oral) TMIN: 36.5 C (Oral) TMAX: 37.7 C (Oral) HR: 60 RR: 18 BP: 84/51 SpO2: 95% Weight Dosing Weight: 156.4 kg (01/10/23) General: Awake, alert and oriented x4. In no apparent distress. Able to answer questions appropriately and speak in full sentences. Sitting upright in the chair. HEENT: Sclera anicteric. Heart: Regular rate and rhythm. S1 and S2 present. Lungs: Chest rise symmetrical. Respirations unlabored. Abdomen: Soft, obese/rounded and minimally tender with palpation. No rigidity or guarding noted. Bowel sounds present. Extremities: Freely moving. Psychiatric: Calm and cooperative. Lab Results 01/11 06:29 WBC: 9.0 Hgb: 13.2 Hct: 38.9 L Platelet: 240 Neutrophil %: 71.8 Glucose Level: 111 Sodium Level: 131 L Potassium Level: 4.2 BUN: 28.0 H Creatinine Lvl (s): 1.66 H 01/10 10:26 WBC: 10.6 Hgb: 14.4 Hct: 42.9 Platelet: 287 Neutrophil %: 86.4 H Protime: 12.1 PT International Ratio: 1.0 Glucose Level: 118 H Sodium Level: 138 Potassium Level: 4.5 BUN: 15.0 Creatinine Lvl (s): 0.82 Imaging Results and Diagnostics XR Foreign Body Loc Eye Bilateral Result Date: January 10, 2023 Verified By: CHRISTELLE CASILLAS MD CLINICAL STATEMENT: IMPRESSION: No metallic intraorbital foreign body. MRI MRPC Result Date: January 10, 2023 Verified By: MARRY ARGUETA MD CLINICAL STATEMENT: IMPRESSION: 1. No biliary dilatation and no evidence for choledocholithiasis. 2. Large tubular septated structure extending from the common hepatic duct of the gallbladder fossa. I suspect that this represents a large and mildly dilated cystic duct remnant. There is suspicion for retained stones within the cystic duct remnant as well. Assessment/Plan This patient is a 62-year-old male who is status post partial cholecystectomy in February of 2022 as well as multiple ERCPs secondary to a cystic duct and common bile duct leak who presented to the [facility] emergency department on 01/09/2023 with complaints of right upper quadrant abdominal pain with associated nausea. He was transferred to [facility] and was admitted to the regular floor under the medical service with initial consultation to gastroenterology. An MRCP was completed and showed no biliary dilatation and no evidence for choledocholithiasis; however, there was a large tubular septated structure extending from the common hepatic duct of the gallbladder fossa that was suspected to be a large and mildly dilated cystic duct remnant and there was suspicion for retained stones within the cystic duct remnant per radiology's interpretation. Laboratory data, vital signs, and I/O have been reviewed. His total bilirubin is elevated at 6.6. On examination, he was seen resting in the chair. He did not appear toxic or in any acute distress.He complained of minimal pain with palpation of the right upper quadrant. His abdomen was obese, rounded, and his bowel sounds are present. Plan: 1. Concern for stump cholecystitis Spoke with GI in regards to his upward trending total bilirubin and they are in agreement with proceeding with an ERCP Continue to monitor liver function tests Will tentatively plan for surgical intervention on 01/14/2023 Would recommend a low-fat diet 2. Medical management per the primary medical team 3. Encouraged mobilization as able Thank you for allowing us to participate in the care of this patient. The case has been discussed with Dr. Daly. Please see his addendum for further details. Problem List/Past Medical History Ongoing Arthritis Bile duct leak High blood pressure Pancreatitis Sleep apnea Procedure/Surgical History Biliary stent: 05/2022 ERCP: 03/2022 Cholecystectomy: 2021 Liver: 1990 Trauma: 1968 Tonsillectomy and adenoidectomy Arthroscopic trimming of meniscus Colonoscopy Rotator cuff repair Medications Inpatient amLODIPine, 10 mg= 1 tab(s), Oral, qAM DuoNeb, 3 mL, Inhalation, q4hRT, PRN guaiFENesin, 200 mg= 10 mL, Oral, q4h, PRN lisinopril, 20 mg= 1 tab(s), Oral, qAM melatonin, 3 mg= 1 tab(s), Oral, qHS, PRN Miralax Powder Packet, 17 gram(s)= 15 mL, Oral, qDay, PRN morphine, 1 mg= 0.5 mL, IV Push, q3h, PRN Normal Saline 1,000 mL, 1000 mL, Intravenous NS 1,000 mL, 1000 mL, Intravenous oxyCODONE 5 mg oral tablet ( IMMEDIATE release ), 5 mg= 1 tab(s), Oral, q4h, PRN pantoprazole, 40 mg= 1 tab(s), Oral, qDayAC prochlorperazine, 5 mg= 1 mL, IV Push, q6h, PRN Tylenol, 650 mg= 2 tab(s), Oral, q4h, PRN Ultram, 50 mg= 1 tab(s), Oral, q4h, PRN Zofran, 4 mg= 2 mL, IV Push, q4h, PRN Zosyn, 3.375 gram(s)= 50 mL, IV Piggyback, q8h Home amLODIPine 10 mg oral tablet, 10 mg= 1 tab(s), Oral, qAM lisinopril 20 mg oral tablet, 20 mg= 1 tab(s), Oral, qAM omega-3 fish oil 1000 mg oral capsule, 1000 mg= 1 cap(s), Oral, qAM, On hold for Surgery Allergies NKA Social History Alcohol - Denies Alcohol Use, 05/25/2022 Use: Never., 03/31/2022 Home/Environment Safe place to go: Yes., 06/01/2022 Domestic Concerns: Denies. Living situation: Home/Independent. Current Home Treatments bipap. Spouse Name: Keisha. Marital Status: ., 05/25/2022 Nutrition/Health Type of diet: Regular. Appetite Good. Eating Difficulties None., 03/31/2022 Substance Abuse - Denies Substance Abuse, 05/25/2022 Use: Never., 03/31/2022 Tobacco - Denies Tobacco Use, 05/25/2022 Nicotine Use: Never (less than 100 in lifetime), Smoker, current status unknown., 03/31/2022 Family History Cancer: Sister. Cancer of colon: Father. Immunizations No qualifying data available. Digitally Signed by ARNEL LEE on 01/11/2023 12:24 PM [id number] Gastroenterology Progress note Date of Service January 11, 2023 Chief Complaint Right upper quadrant pain with elevated LFTs. History of a partial cholecystectomy due to extensiveadhesions with cystic duct leak requiring repeat ERCPs with stent placement and removals. Subjective Tony Cerda is a 62-year-old male sitting up at bedside complaining of some generalized weakness. Still has right upper quadrant discomfort. Decreased appetite. No nausea or vomiting. No bowel movement since admission but denies complaints of constipation. Objective Vitals and Measurements T: 36.5 C (Oral) TMIN: 36.5 C (Oral) TMAX: 37.7 C (Oral) HR: 60 RR: 18 BP: 84/51 SpO2: 95% Intake and Output 7AM Yesterday to 7AM Today Intake and Output (Last 24 hours) Intake Output Total Summary Total Intake 0.00 Total Output 0.00 Fluid Balance 0.00 Physical Exam Alert and oriented x3. Skin: Jaundice, warm, dry and intact. Normal hair pattern. HEENT: Pupils equal and reactive to light with scleral jaundice noted. Oral mucosal membranes pink and moist. No palpable thyroid mass. Lungs: Diminished to the bases. Cardiac: S1, S2 regular systolic murmur auscultated. +1-2 bilateral lower extremity edema. GI: Abdomen rounded semifirm with soft tissue bulge to theright upper quadrant. Unable to appreciate hepatomegaly or splenomegaly. Extensive surgical scarring noted. No bruits auscultated. : Voiding icteric. Musculoskeletal: Upper and lower extremities equal but weak. Neurological: Cranial nerves intact. Weight Dosing Weight: 156.4 kg (01/10/23) Medications Medications (15) Active Scheduled: (4) amLODIPine 10 mg tablet 10 mg 1 tab(s), Oral, qAM lisinopril 20 mg tablet 20 mg 1 tab(s), Oral, qAM pantoprazole 40 mg EC tablet 40 mg 1 tab(s), Oral, qDayAC piperacillin-tazobactam PMX 3.375 gram(s) 50 mL, IV Piggyback, q8h Continuous: (1) NS (0.9% nacl) 1,000 mL 1,000 mL, Intravenous, 125 mL/hr PRN: (10) acetaminophen 325 mg Tablet 650 mg 2 tab(s), Oral, q4h albuterol - ipratropium 2.5 mg-0.5 mg/3 mL Inhal Estefany UD 3 mL, Inhalation, q4hRT guaifenesin 100 mg/5 mL 120 mL liquid 200 mg 10 mL, Oral, q4h melatonin 3 mg tablet 3 mg 1 tab(s), Oral, qHS morphine 2 mg/mL 1 mL syringe 1 mg 0.5 mL, IV Push, q3h ondansetron 2 mg/ 1 mL 2 mL INJ 4 mg 2 mL, IV Push, q4h oxycodone 5 mg tablet (immediate release) 5 mg 1 tab(s), Oral, q4h polyethylene glycol 3350 - UD packet 17 gram(s) 15 mL, Oral, qDay prochlorperazine 10 mg/2 mL vial 5 mg 1 mL, IV Push, q6h tramadol 50 mg Tablet 50 mg 1 tab(s), Oral, q4h Lab Results 01/11 06:29 WBC: 9.0 Hgb: 13.2 Hct: 38.9 L Platelet: 240 Neutrophil %: 71.8 Glucose Level: 111 Sodium Level: 131 L Potassium Level: 4.2 BUN: 28.0 H Creatinine Lvl (s): 1.66 H 01/10 10:26 WBC: 10.6 Hgb: 14.4 Hct: 42.9 Platelet: 287 Neutrophil %: 86.4 H Protime: 12.1 PT International Ratio: 1.0 Glucose Level: 118 H Sodium Level: 138 Potassium Level: 4.5 BUN: 15.0 Creatinine Lvl (s): 0.82 01/11/2023 hepatic panel: Albumin 2.9, total bilirubin 6.6, direct bilirubin 4.6, alk phos 185, AST 142, ALT 377 01/10/2023 hepatic panel: Total bilirubin 3.2, alk phos 172, AST 335, ALT 536 Imaging Results and Diagnostics 01/10/2023 MRCP: No biliary dilation. There is a large tubular septated structure extending from the common hepatic duct to the gallbladder fossa. Suspect large mildly dilated cystic duct with remnantsof possible retained stones. EKG No qualifying data available. Assessment/Plan Orders: pantoprazole, Start: 01/10/23 9:53:00 EDT, Dose = 40 mg, = 1 tab(s), Oral, qDayAC, 01/10/23 9:53:00EDT Right upper quadrant pain with elevated LFTs: status post partial cholecystectomy with extensive adhesions 02/2022, past cystic duct leak requiring multiple ERCPs initial ERCP 03/2022 last ERCP 09/11/2022 with stent removal. MRCP is showing no biliary dilation. Large tubular septated structure extending from the common hepatic duct to the gallbladder fossa possibly a large mildly dilated cystic duct with remnants of retained stones. Patient's blood pressure this morning is down to 84/51. He was started on Zosyn remains afebrile and no elevated white count. -Spoke to Dr. Deirdre Quezada regarding MRCP results. Needs surgical consultation to see if revision of the cystic stump would help the recurring stone impactions in this area. No need to repeat ERCP with normal biliary tree. Concerned with stones and cystic stump causing recurrent biliary obstruction though. Spoke with surgery Dr. Daly who is requesting that we consider ERCP to attempt to clean out the cystic duct is much as possible before he proceeds with surgery possibly on Tuesday. Will defer to Dr. Deirdre Quezada Digitally Signed by JULIANA MOSQUEDA on 01/11/2023 09:57 AM Digitally Signed by JULIANA MOSQUEDA on 01/11/2023 10:28 AM Digitally Signed by JULIANA MOSQUEDA on 01/11/2023 11:05 AM Digitally Signed by JULIANA MOSQUEDA on 01/12/2023 11:19 AM [id number] Note ORIGINAL EXAMINATION: MRCP 01/10/2023 2:34 pm TECHNIQUE: After initial T2 axial and coronal images, thick slab, thin slab and 3D coronal MRCP sequences were obtained without the administration of intravenous contrast. MIP images are provided for review. COMPARISON: Ultrasound January 10, 2023, CT scan January 09, 2023, CT scan November 07, 2022 HISTORY: ORDERING SYSTEM PROVIDED HISTORY: Reason for Exam: RRUQ pain, > LFT, reported GB removed but CT & US show it is present, Past ERCP's stents removed FINDINGS: The intrahepatic bile ducts are normal in caliber. The common bile duct is normal in caliber as well for age, 8 mm. It tapers normally distally, with no defect to suggest stone. There is an oblong tubular septated structure extending from the common hepatic duct to the region of the gallbladder fossa. With given history of previous cholecystectomy, this is probably a very large cystic duct remnant. Within this remnant, there are several low signal defects present measuring up to 9 mm in size. This may represent retained stones. The pancreatic parenchyma and pancreatic duct are unremarkable. No additional contributory finding. IMPRESSION: 1. No biliary dilatation and no evidence for choledocholithiasis. 2. Large tubular septated structure extending from the common hepatic duct of the gallbladder fossa. I suspect that this represents a large and mildly dilated cystic duct remnant. There is suspicion for retained stones within the cystic duct remnant as well. Interpreted by: Marry Argueta MD Preliminary Report By: Marry Argueta MD Electronically signed By Marry Argueta MD Dictated Date: 01/10/2023 4:22:11 PM Prelim Date: 01/10/2023 4:30:41 PM Sign Date: 01/10/2023 4:30:41 PM Ordering Provider: JULIANA [facility]05-01-2023 Gastroenterology Consult note Date of Service January 10, 2023 Reason for Consultation Choledocholithiasis, recurrent. History of cystic biliary leak requiring multiple ERCPs with bile duct stents. Referring Physician Lilly Delgado MD History of Present Illness Tony Cerda is a 62-year-old male admitted through [facility] emergency department with sudden onset of right upper quadrant to right mid abdominal pain yesterday around 430. He had nausea but no emesis. No fever or chills. Worried as this was similar to previous biliary blockages. There has been no signs of jaundice or pruritus. He has a generalized overall feeling of weakness. Initially had laparoscopic cholecystectomy by Dr. Alex Epps in 02/2022 that resulted in open cholecystectomy due to extensive scar tissue and adhesions. Post surgical procedure patient had continued complaints of right upper quadrant pain, nausea. Underwent ERCP for stone removal, cystic duct leak, and stent replacements. Patient's not sure that the complete gallbladder was removed due to extensive scar tissue. Image studies that were done in the emergency department indicate the gallbladder is still present. Endoscopies: 09/11/[address] Josue Weaver stent removed 06/01/[address] Josue Weaver noted persistent cystic duct leak with stent removed and a 10 [place] 5 cm stent placed 04/01/[address] Josue Weaver noted common bile duct 12 cm with persistent leak and 4 black stones removed. 7 [place] 7 cm stent placed Last colonoscopy was approximately [address] Luis Kline with benign polyps Hospital work-up indicated patient had slight elevated liver function studies with 01/09/2023 total bilirubin 1.5, alk phos 145, AST 283, ALT 265. Lipase normal. CT scan 01/09/2023 noted gallstones, mild gallbladder wall thickening, pericholecystic inflammation. No bile duct dilatation. Right horseshoe kidney with a 2 cm renal cyst. 6 mm left lower lobe pulmonary nodule that stable. 01/10/2023 ultrasound indicated common bile duct 13 mm. 16.5 cm right horseshoe kidney with no hydronephrosis. Stablegallbladder initially appeared to have a fold. Questionable cholecystitis. Risk factors: Denies alcohol use. Denies tobacco use. Has NSAID use with Aleve or Motrin daily. Family history of father and sister with colon cancer. Review of Systems General: Sudden onset of epigastric, right upper quadrant, right mid abdomen pain with nausea, 1 episode of vomiting. Skin: No open areas. No appearance of jaundice. HEENT: No visual acuity change. No complaints of sinus pain pressure. No tinnitus. No difficulty chewing or swallowing. Lungs: Dyspnea with exertion. Cardiac: Denies chest pain, palpitations but does have lower extremity edema. GI: Has epigastric to right upper quadrant pain with nausea. This is improved somewhat from yesterday. Noheartburn or reflux. No difficulty chewing or swallowing. No lower abdominal pain or stool change. Genitourinary: Voiding. Musculoskeletal: Back pain. Neurological: Headaches. No seizure disorder. Physical Exam Vitals and Measurements T: 36.7 C (Oral) TMIN: 36.7 C (Oral) TMAX: 37.0 C (Oral) HR: 72 RR: 18 BP: 144/77 SpO2: 94% HT: 177.8 cm WT: 156.4 kg BMI: 49.47 Weight Dosing Weight: 156.4 kg (01/10/23) Alert and oriented x3. Skin: Pale pink, warm, dry with decreased skin turgor. Normal hair pattern. HEENT: Pupils equal and reactive to light, oral mucosal membranes pink and moist. No palpable thyroid mass. Lungs: Diminished to the bases. Cardiac: S1, S2 regular faint systolic murmur auscultated. +1 bilateral lower extremity edema. GI: Abdomen obese, soft with bowel sounds present x4. Asymmetrical with horizontal mid abdominal scar tissue from previous surgery as well as a right upper quadrant surgical scar. There is thickening with bulge below it. No discoloration. No hepatomegaly or splenomegaly. Palpated discomfort to right upper quadrant right mid abdomen. : Voiding bright yellow. Musc uloskeletal: Upper and lower extremities equal but very weak. Had a shuffled gait. Neurological: Cranial nerves intact. Lab Results 01/09/2023 CBC: Hematocrit 41.1 01/09/2023 CMP: Glucose 156, BUN 20, total bilirubin 1.5, alk phos 145, AST 283, ALT 265, lipase 18 Imaging Results and Diagnostics 01/10/2023 ultrasound of the abdomen: Common bile duct 13 mm. 16.5 cm right horseshoe kidney with no hydronephrosis. Questionable stable gallbladder with possible cholecystitis 01/09/2023 CT scan of abdomen and pelvis: Gallbladder stones, mild gallbladder wall thickening. Pericholecystic fluid. Bile ducts appear normal. Right horseshoe kidney with 2 cm renal cyst. 6 mm leftlower lobe pulmonary nodule that stable. Assessment/Plan Right upper quadrant pain with nausea/vomiting and slight elevated liver function studies: Patient has had past history of laparoscopic cholecystectomy converted to open cholecystectomy 02/2022 due tosevere scar tissue and adhesions that resulted in a cystic bile duct leak. CT image indicates the gallbladder is present with stones and wall thickening. Ultrasound indicated possible cholecystitis. Patient states he believes the entire gallbladder had not been removed due to extensive scar tissue.This was done by Dr. Alex Epps. Dr. Josue Weaver had performed 3 ERCPs following that surgery 09/11/2022 with initial stent placed. 06/01/2022 with stent exchanged, the initial ERCP 04/01/2022 with common bile duct 12 mm and 4 black stones removed with cystic leak and 10 [place] 7 cm stent placed. Her function studies just show slight elevated total bilirubin 1.5 and alk phos 145 with AST 283 and ALT 265. Lipase normal. CT did not indicate biliary duct dilation. -MRCP -repeat hepatic panel, -PPI and antiemetic as needed Problem List/Past Medical History Ongoing Arthritis Bile duct leak High blood pressure Pancreatitis Sleep apnea Historical No qualifying data Procedure/Surgical History Biliary stent: 05/2022 ERCP: 03/2022 Cholecystectomy: 2021 Liver: 1990 Trauma: 1968 Tonsillectomy and adenoidectomy Arthroscopic trimming of meniscus Colonoscopy Rotator cuff repair Medications Inpatient amLODIPine, 10 mg= 1 tab(s), Oral, qAM DuoNeb, 3 mL, Inhalation, q4hRT, PRN guaiFENesin, 200 mg= 10 mL, Oral, q4h, PRN lisinopril, 20 mg= 1 tab(s), Oral, qAM melatonin, 3 mg= 1 tab(s), Oral, qHS, PRN Miralax Powder Packet, 17 gram(s)= 15 mL, Oral, qDay, PRN morphine, 1 mg= 0.5 mL, IV Push, q3h, PRN NS 1,000 mL, 1000 mL, Intravenous oxyCODONE 5 mg oral tablet ( IMMEDIATE release ), 5 mg= 1 tab(s), Oral, q4h, PRN prochlorperazine, 5 mg= 1 mL, IV Push, q6h, PRN Tylenol, 650 mg= 2 tab(s), Oral, q4h, PRN Ultram, 50 mg= 1 tab(s), Oral, q4h, PRN Zofran, 4 mg= 2 mL, IV Push, q4h, PRN Home amLODIPine 10 mg oral tablet, 10 mg= 1 tab(s), Oral, qAM lisinopril 20 mg oral tablet, 20 mg= 1 tab(s), Oral, qAM omega-3 fish oil 1000 mg oral capsule, 1000 mg= 1 cap(s), Oral, qAM, On hold for Surgery Allergies NKA Social History Alcohol - Denies Alcohol Use, 05/25/2022 Use: Never., 03/31/2022 Home/Environment Safe place to go: Yes., 06/01/2022 Domestic Concerns: Denies. Living situation: Home/Independent. Current Home Treatments bipap. Spouse Name: Keisha. Marital Status: ., 05/25/2022 Nutrition/Health Type of diet: Regular. Appetite Good. Eating Difficulties None., 03/31/2022 Substance Abuse - Denies Substance Abuse, 05/25/2022 Use: Never., 03/31/2022 Tobacco - Denies Tobacco Use, 05/25/2022 Nicotine Use: Never (less than 100 in lifetime), Smoker, current status unknown., 03/31/2022 Family History Cancer: Sister. Cancer of colon: Father. Immunizations No qualifying data available. Digitally Signed by JULIANA MOSQUEDA on 01/10/2023 09:50 AM [id number] Note ORIGINAL EXAMINATION: MRCP 01/10/2023 2:34 pm TECHNIQUE: After initial T2 axial and coronal images, thick slab, thin slab and 3D coronal MRCP sequences were obtained without the administration of intravenous contrast. MIP images are provided for review. COMPARISON: Ultrasound January 10, 2023, CT scan January 09, 2023, CT scan November 07, 2022 HISTORY: ORDERING SYSTEM PROVIDED HISTORY: Reason for Exam: RRUQ pain, > LFT, reported GB removed but CT & US show it is present, Past ERCP's stents removed FINDINGS: The intrahepatic bile ducts are normal in caliber. The common bile duct is normal in caliber as well for age, 8 mm. It tapers normally distally, with no defect to suggest stone. There is an oblong tubular septated structure extending from the common hepatic duct to the region of the gallbladder fossa. With given history of previous cholecystectomy, this is probably a very large cystic duct remnant. Within this remnant, there are several low signal defects present measuring up to 9 mm in size. This may represent retained stones. The pancreatic parenchyma and pancreatic duct are unremarkable. No additional contributory finding. IMPRESSION: 1. No biliary dilatation and no evidence for choledocholithiasis. 2. Large tubular septated structure extending from the common hepatic duct of the gallbladder fossa. I suspect that this represents a large and mildly dilated cystic duct remnant. There is suspicion for retained stones within the cystic duct remnant as well. Interpreted by: Marry Argueta MD Preliminary Report By: Marry Argueta MD Electronically signed By Marry Argueta MD Dictated Date: 01/10/2023 4:22:11 PM Prelim Date: 01/10/2023 4:30:41 PM Sign Date: 01/10/2023 4:30:41 PM Ordering Provider: [facility]05-01-2023 Evaluation + Plan note Extracted from: Title:Clinical Document Author:LILLY DELGADO MD Date:01/10/23 [facility] Medicine Hospitalist History and Physical Date of Admission: 01/10/2023 Chief complaint: Abdominal pain History of present illness: History is taken from talking with the emergency room physician in [place] as well as talking with the patient. Patient has a past medical history of DVT, hypertension, hyperlipidemia, cholecystectomy with ongoing episodes of bile leak requiring multiple biliary stents. Patient reports that he had a cholecystectomy at [facility] in February 2022. Subsequently he has had persistent biliary symptoms and complications. He has had multiple ERCPs with sphincterotomy and stone/sludge removal with stent placement. His last procedure was on 08/24/2022 when his biliary stent was removed. Patient reports that yesterday he started having severe epigastric abdominal pain as well as nausea and vomiting. Denies fevers, chills or night sweats. Symptoms are consistent with his prior episodes where he required ERCPs. Since presenting to the emergency room the patient has been afebrile, hemodynamically stable, 99% room air. Labs and imaging of note: CBC within normal limits BMP within normal limits Total bilirubin 1.5 alkaline phosphatase 145 AST 283 [address] abdomen and pelvis with contrast is concerning for cholelithiasis with cholecystitis. No biliary ductal dilatation. 6 mm left lower lobe nodule is unchanged. Abdominal ultrasound shows largely stable appearance of gallbladder when compared to recent CT with folded/septated contour and trace pericholecystic fluid. Findings likely reflect acute cholecystitis. Common bile duct appears dilated measuring 13 mm proximally. EKG showed sinus rhythm with no ST elevation or ST depression. Emergency room physician did discuss with radiology as to why they are seeing cholecystitis as apparently the patient already had a cholecystectomy. They report that this could be dilated remnant duct. Prior to transfer the patient was given morphine, Zofran and 500 mL of IV fluids. Past medical history: Abdominal pain Apnea Arthritis BiPAP (biphasic positive airway pressure) dependence Bile duct leak DVT of lower limb, acute Glasses High blood pressure Horseshoe kidney CONNER (nonalcoholic steatohepatitis) Pancreatitis Sleep apnea Tobacco use Urinary tract infection Biliary stent: 05/2022 ERCP: 03/2022 Cholecystectomy: 2021 Liver: 1990 Trauma: 1967 Tonsillectomy and adenoidectomy Arthroscopic trimming of meniscus Colonoscopy Rotator cuff repair Family history: Father: Cancer of colon Sister: Cancer Social history: Denies smoking cigarettes or alcohol consumption Medications: Home Medications (3) Active amLODIPine 10 mg oral tablet 10 mg = 1 tab(s), Oral, qAM lisinopril 20 mg oral tablet 20 mg = 1 tab(s), Oral, qAM omega-3 fish oil 1000 mg oral capsule 1,000 mg = 1 cap(s), Oral, qAM Allergies: NKA Review of systems: See HPI for pertinent positives and negatives. All other review of systems have been reviewed and they are negative. Vitals Signs(Last 24 hrs)__Last Charted Minimum Maximum Temp37.0(JANUARY 10 03:56)37.0(JANUARY 10 03:56)37.0(JANUARY 10 03:56) Resp Rate18(JANUARY 10 03:56)18(JANUARY 10 03:56)18(JANUARY 10 03:56) ATY906(JANUARY 10 03:56)101(JANUARY 10 03:56)101(JANUARY 10 03:56) DBPC 50(JANUARY 10 03:56)C 50(JANUARY 10 03:56)C 50(JANUARY 10 03:56) Physical examination: HEENT: No Pallor, No Icterus Cardiac: RRR, No murmur Lungs: CTA, good air entry Abdomen: Soft, nondistended, tender to palpation epigastric area Musculoskeletal: No joint pains or swelling Extremities: No edema, good pulses Neurological: Alert, no deficits Skin: No rash, no nodules Labs: As mentioned in HPI Assessment and plan: Patient presents from [place] emergency department on 01/10/2023 due to having epigastric abdominal pain and nausea and vomiting. Acute recurrent choledocholithiasis with history of bile leak requiring multiple stents in the past. N.p.o. with IV fluids. We will check repeat labs. We will consult gastroenterology for evaluation for possible ERCP. Morbid obesity Hyperlipidemia. Hold home medications due to elevated LFTs. Hypertension. Continue home medications with holding parameters Prophylaxis SCDs CODE STATUS full code [facility] 05-01-2023 Note ORIGINAL EXAMINATION: XR OR FOREIGN BODY, 1 x-ray view of the orbits 01/10/2023 1:55 pm COMPARISON: None. HISTORY: ORDERING SYSTEM PROVIDED HISTORY: Reason for Exam: r/o metal shavings FINDINGS: No metallic intraorbital foreign body. Examination is degraded by motion artifact. Included paranasal sinuses and mastoid air cells are grossly clear. IMPRESSION: No metallic intraorbital foreign body. Interpreted by: Christelle Casillas MD Preliminary Report By: Christelle Casillas MD Electronically signed By Christelle Casillas MD Dictated Date: 01/10/2023 1:57:15 PM Prelim Date: 01/10/2023 1:58:20 PM Sign Date: 01/10/2023 1:58:20 PM Ordering Provider: JULIANA MOSQUEDA [id number] Note ORIGINAL EXAMINATION: XR OR FOREIGN BODY, 1 x-ray view of the orbits 01/10/2023 1:55 pm COMPARISON: None. HISTORY: ORDERING SYSTEM PROVIDED HISTORY: Reason for Exam: r/o metal shavings FINDINGS: No metallic intraorbital foreign body. Examination is degraded by motion artifact. Included paranasal sinuses and mastoid air cells are grossly clear. IMPRESSION: No metallic intraorbital foreign body. Interpreted by: Christelle Casillas MD Preliminary Report By: Christelle Casillas MD Electronically signed By Christelle Casillas MD Dictated Date: 01/10/2023 1:57:15 PM Prelim Date: 01/10/2023 1:58:20 PM Sign Date: 01/10/2023 1:58:20 PM Ordering Provider: [facility]05-01-2023 Gastroenterology Consult note Date of Service January 10, 2023 Reason for Consultation Choledocholithiasis, recurrent. History of cystic biliary leak requiring multiple ERCPs with bile duct stents. Referring Physician Lilly Delgado MD History of Present Illness Tony Cerda is a 62-year-old male admitted through [place] emergency department with sudden onset of right upper quadrant to right mid abdominal pain yesterday around 430. He had nausea but no emesis. No fever or chills. Worried as this was similar to previous biliary blockages. There has been no signs of jaundice or pruritus. He has a generalized overall feeling of weakness. Initially had laparoscopic cholecystectomy by Dr. Alex Epps in 02/2022 that resulted in open cholecystectomy due to extensive scar tissue and adhesions. Post surgical procedure patient had continued complaints of right upper quadrant pain, nausea. Underwent ERCP for stone removal, cystic duct leak, and stent replacements. Patient's not sure that the complete gallbladder was removed due to extensive scar tissue. Image studies that were done in the emergency department indicate the gallbladder is still present. Endoscopies: 09/11/[address] Josue Weaver stent removed 06/01/[address] Josue Weaver noted persistent cystic duct leak with stent removed and a 10 [place] 5 cm stent placed 04/01/[address] Josue Weaver noted common bile duct 12 cm with persistent leak and 4 black stones removed. 7 [place] 7 cm stent placed Last colonoscopy was approximately [address] Luis Kline with benign polyps Hospital work-up indicated patient had slight elevated liver function studies with 01/09/2023 total bilirubin 1.5, alk phos 145, AST 283, ALT 265. Lipase normal. CT scan 01/09/2023 noted gallstones, mild gallbladder wall thickening, pericholecystic inflammation. No bile duct dilatation. Right horseshoe kidney with a 2 cm renal cyst. 6 mm left lower lobe pulmonary nodule that stable. 01/10/2023 ultrasound indicated common bile duct 13 mm. 16.5 cm right horseshoe kidney with no hydronephrosis. Stablegallbladder initially appeared to have a fold. Questionable cholecystitis. Risk factors: Denies alcohol use. Denies tobacco use. Has NSAID use with Aleve or Motrin daily. Family history of father and sister with colon cancer. Review of Systems General: Sudden onset of epigastric, right upper quadrant, right mid abdomen pain with nausea, 1 episode of vomiting. Skin: No open areas. No appearance of jaundice. HEENT: No visual acuity change. No complaints of sinus pain pressure. No tinnitus. No difficulty chewing or swallowing. Lungs: Dyspnea with exertion. Cardiac: Denies chest pain, palpitations but does have lower extremity edema. GI: Has epigastric to right upper quadrant pain with nausea. This is improved somewhat from yesterday. Noheartburn or reflux. No difficulty chewing or swallowing. No lower abdominal pain or stool change. Genitourinary: Voiding. Musculoskeletal: Back pain. Neurological: Headaches. No seizure disorder. Physical Exam Vitals and Measurements T: 36.7 C (Oral) TMIN: 36.7 C (Oral) TMAX: 37.0 C (Oral) HR: 72 RR: 18 BP: 144/77 SpO2: 94% HT: 177.8 cm WT: 156.4 kg BMI: 49.47 Weight Dosing Weight: 156.4 kg (01/10/23) Alert and oriented x3. Skin: Pale pink, warm, dry with decreased skin turgor. Normal hair pattern. HEENT: Pupils equal and reactive to light, oral mucosal membranes pink and moist. No palpable thyroid mass. Lungs: Diminished to the bases. Cardiac: S1, S2 regular faint systolic murmur auscultated. +1 bilateral lower extremity edema. GI: Abdomen obese, soft with bowel sounds present x4. Asymmetrical with horizontal mid abdominal scar tissue from previous surgery as well as a right upper quadrant surgical scar. There is thickening with bulge below it. No discoloration. No hepatomegaly or splenomegaly. Palpated discomfort to right upper quadrant right mid abdomen. : Voiding bright yellow. Musc uloskeletal: Upper and lower extremities equal but very weak. Had a shuffled gait. Neurological: Cranial nerves intact. Lab Results 01/09/2023 CBC: Hematocrit 41.1 01/09/2023 CMP: Glucose 156, BUN 20, total bilirubin 1.5, alk phos 145, AST 283, ALT 265, lipase 18 Imaging Results and Diagnostics 01/10/2023 ultrasound of the abdomen: Common bile duct 13 mm. 16.5 cm right horseshoe kidney with no hydronephrosis. Questionable stable gallbladder with possible cholecystitis 01/09/2023 CT scan of abdomen and pelvis: Gallbladder stones, mild gallbladder wall thickening. Pericholecystic fluid. Bile ducts appear normal. Right horseshoe kidney with 2 cm renal cyst. 6 mm leftlower lobe pulmonary nodule that stable. Assessment/Plan Right upper quadrant pain with nausea/vomiting and slight elevated liver function studies: Patient has had past history of laparoscopic cholecystectomy converted to open cholecystectomy 02/2022 due tosevere scar tissue and adhesions that resulted in a cystic bile duct leak. CT image indicates the gallbladder is present with stones and wall thickening. Ultrasound indicated possible cholecystitis. Patient states he believes the entire gallbladder had not been removed due to extensive scar tissue.This was done by Dr. Alex Epps. Dr. Josue Weaver had performed 3 ERCPs following that surgery 09/11/2022 with initial stent placed. 06/01/2022 with stent exchanged, the initial ERCP 04/01/2022 with common bile duct 12 mm and 4 black stones removed with cystic leak and 10 [place] 7 cm stent placed. Her function studies just show slight elevated total bilirubin 1.5 and alk phos 145 with AST 283 and ALT 265. Lipase normal. CT did not indicate biliary duct dilation. -MRCP -repeat hepatic panel, -PPI and antiemetic as needed Problem List/Past Medical History Ongoing Arthritis Bile duct leak High blood pressure Pancreatitis Sleep apnea Historical No qualifying data Procedure/Surgical History Biliary stent: 05/2022 ERCP: 03/2022 Cholecystectomy: 2021 Liver: 1990 Trauma: 1968 Tonsillectomy and adenoidectomy Arthroscopic trimming of meniscus Colonoscopy Rotator cuff repair Medications Inpatient amLODIPine, 10 mg= 1 tab(s), Oral, qAM DuoNeb, 3 mL, Inhalation, q4hRT, PRN guaiFENesin, 200 mg= 10 mL, Oral, q4h, PRN lisinopril, 20 mg= 1 tab(s), Oral, qAM melatonin, 3 mg= 1 tab(s), Oral, qHS, PRN Miralax Powder Packet, 17 gram(s)= 15 mL, Oral, qDay, PRN morphine, 1 mg= 0.5 mL, IV Push, q3h, PRN NS 1,000 mL, 1000 mL, Intravenous oxyCODONE 5 mg oral tablet ( IMMEDIATE release ), 5 mg= 1 tab(s), Oral, q4h, PRN prochlorperazine, 5 mg= 1 mL, IV Push, q6h, PRN Tylenol, 650 mg= 2 tab(s), Oral, q4h, PRN Ultram, 50 mg= 1 tab(s), Oral, q4h, PRN Zofran, 4 mg= 2 mL, IV Push, q4h, PRN Home amLODIPine 10 mg oral tablet, 10 mg= 1 tab(s), Oral, qAM lisinopril 20 mg oral tablet, 20 mg= 1 tab(s), Oral, qAM omega-3 fish oil 1000 mg oral capsule, 1000 mg= 1 cap(s), Oral, qAM, On hold for Surgery Allergies NKA Social History Alcohol - Denies Alcohol Use, 05/25/2022 Use: Never., 03/31/2022 Home/Environment Safe place to go: Yes., 06/01/2022 Domestic Concerns: Denies. Living situation: Home/Independent. Current Home Treatments bipap. Spouse Name: Keisha. Marital Status: ., 05/25/2022 Nutrition/Health Type of diet: Regular. Appetite Good. Eating Difficulties None., 03/31/2022 Substance Abuse - Denies Substance Abuse, 05/25/2022 Use: Never., 03/31/2022 Tobacco - Denies Tobacco Use, 05/25/2022 Nicotine Use: Never (less than 100 in lifetime), Smoker, current status unknown., 03/31/2022 Family History Cancer: Sister. Cancer of colon: Father. Immunizations No qualifying data available. Digitally Signed by JULIANA MOSQUEDA on 01/10/2023 09:50 AM [id number] History and physical note [facility] Medicine Hospitalist History and Physical Date of Admission: 01/10/2023 Chief complaint: Abdominal pain History of present illness: History is taken from talking with the emergency room physician in [place] as well as talking with the patient. Patient has a past medical history of DVT, hypertension, hyperlipidemia, cholecystectomy with ongoing episodes of bile leak requiring multiple biliary stents. Patient reports that he had a cholecystectomy at [facility] in February 2022. Subsequently he hashad persistent biliary symptoms and complications. He has had multiple ERCPs with sphincterotomy and stone/sludge removal with stent placement. His last procedure was on 08/24/2022 when his biliary stent was removed. Patient reports that yesterday he started having severe epigastric abdominal pain as well as nauseaand vomiting. Denies fevers, chills or night sweats. Symptoms are consistent with his prior episodes where he required ERCPs. Since presenting to the emergency room the patient has been afebrile, hemodynamically stable, 99% room air. Labs and imaging of note: CBC within normal limits BMP within normal limits Total bilirubin 1.5 alkaline phosphatase 145 AST [address] ALT [address] abdomen and pelvis with contrast is concerning for cholelithiasis with cholecystitis. No biliaryductal dilatation. 6 mm left lower lobe nodule is unchanged. Abdominal ultrasound shows largely stable appearance of gallbladder when compared to recent CT withfolded/septated contour and trace pericholecystic fluid. Findings likely reflect acute cholecystitis. Common bile duct appears dilated measuring 13 mm proximally. EKG showed sinus rhythm with no ST elevation or ST depression. Emergency room physician did discuss with radiology as to why they are seeing cholecystitis as apparently the patient already had a cholecystectomy. They report that this could be dilated remnant duct. Prior to transfer the patient was given morphine, Zofran and 500 mL of IV fluids. Past medical history: Abdominal pain Apnea Arthritis BiPAP (biphasic positive airway pressure) dependence Bile duct leak DVT of lower limb, acute Glasses High blood pressure Horseshoe kidney CONNER (nonalcoholic steatohepatitis) Pancreatitis Sleep apnea Tobacco use Urinary tract infection Biliary stent: 05/2022 ERCP: 03/2022 Cholecystectomy: 2021 Liver: 1990 Trauma: 1968 Tonsillectomy and adenoidectomy Arthroscopic trimming of meniscus Colonoscopy Rotator cuff repair Family history: Father: Cancer of colon Sister: Cancer Social history: Denies smoking cigarettes or alcohol consumption Medications: Home Medications (3) Active amLODIPine 10 mg oral tablet 10 mg = 1 tab(s), Oral, qAM lisinopril 20 mg oral tablet 20 mg = 1 tab(s), Oral, qAM omega-3 fish oil 1000 mg oral capsule 1,000 mg = 1 cap(s), Oral, qAM Allergies: NKA Review of systems: See HPI for pertinent positives and negatives. All other review of systems have been reviewed and they are negative. Vitals Signs(Last 24 hrs)__Last Charted Minimum Maximum Temp37.0(JANUARY 10 03:56)37.0(JANUARY 10 03:56)37.0(JANUARY 10 03:56) Resp Rate18(JANUARY 10 03:56)18(JANUARY 10 03:56)18(JANUARY 10:56) OFM787(JANUARY 10:56)101(JANUARY 10 03:56)101(JANUARY 10 03:56) DBPC 50(JANUARY 10:56)C 50(JANUARY 10 03:56)C 50(JANUARY 10:56) Physical examination: HEENT: No Pallor, No Icterus Cardiac: RRR, No murmur Lungs: CTA, good air entry Abdomen: Soft, nondistended, tender to palpation epigastric area Musculoskeletal: No joint pains or swelling Extremities: No edema, good pulses Neurological: Alert, no deficits Skin: No rash, no nodules Labs: As mentioned in HPI Assessment and plan: Patient presents from [place] emergency department on 01/10/2023 due to having epigastric abdominal pain and nausea and vomiting. Acute recurrent choledocholithiasis with history of bile leak requiring multiple stents in the past. N.p.o. with IV fluids. We will check repeat labs. We will consult gastroenterology for evaluation for possible ERCP. Morbid obesity Hyperlipidemia. Hold home medications due to elevated LFTs. Hypertension. Continue home medications with holding parameters Prophylaxis SCDs CODE STATUS full code Digitally Signed by LILLY DELGADO MD on 01/10/2023 05:36 AM [id number] Note ORIGINAL EXAMINATION: RIGHT UPPER QUADRANT ULTRASOUND 01/10/2023 12:53 am COMPARISON: CT abdomen and pelvis 01/09/2023 HISTORY: ORDERING SYSTEM PROVIDED HISTORY: Reason for Exam: RUQ pain FINDINGS: LIVER: The liver demonstrates normal echogenicity without evidence of intrahepatic biliary ductal dilatation. BILIARY SYSTEM: Gallbladder is has a folded/septated contour, stable from the prior CT. There is trace pericholecystic fluid. Negative sonographic Hatch's sign. Common bile duct is within normal limits measuring 13 mm proximally. RIGHT KIDNEY: The right kidney is grossly stable without evidence of hydronephrosis. 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 PANCREAS: Visualized portions of the pancreas are unremarkable. OTHER: No evidence of right upper quadrant ascites. IMPRESSION: 1. Largely stable appearance of the gallbladder when compared to recent CT with folded/septated contour and trace pericholecystic fluid. Findings likely reflect acute cholecystitis. 2. Common bile duct appears dilated, measuring 13 mm proximally, not well visualized distally. RECOMMENDATIONS: Unavailable Interpreted by: Kole Martinez Preliminary Report By: Kole Martinez Electronically signed By Kole Martinez Dictated Date: 01/10/2023 12:53:55 AM Prelim Date: 01/10/2023 1:05:30 AM Sign Date: 01/10/2023 1:05:30 AM Ordering Provider: [facility]NOR[facility]ITALBRUNOIn[facility] Note ORIGINAL EXAMINATION: RIGHT UPPER QUADRANT ULTRASOUND 01/10/2023 12:53 am COMPARISON: CT abdomen and pelvis 01/09/2023 HISTORY: ORDERING SYSTEM PROVIDED HISTORY: Reason for Exam: RUQ pain FINDINGS: LIVER: The liver demonstrates normal echogenicity without evidence of intrahepatic biliary ductal dilatation. BILIARY SYSTEM: Gallbladder is has a folded/septated contour, stable from the prior CT. There is trace pericholecystic fluid. Negative sonographic Hatch's sign. Common bile duct is within normal limits measuring 13 mm proximally. RIGHT KIDNEY: The right kidney is grossly stable without evidence of hydronephrosis. 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 PANCREAS: Visualized portions of the pancreas are unremarkable. OTHER: No evidence of right upper quadrant ascites. IMPRESSION: 1. Largely stable appearance of the gallbladder when compared to recent CT with folded/septated contour and trace pericholecystic fluid. Findings likely reflect acute cholecystitis. 2. Common bile duct appears dilated, measuring 13 mm proximally, not well visualized distally. RECOMMENDATIONS: Unavailable Interpreted by: Kole Martinez Preliminary Report By: Kole Martinez Electronically signed By Kole Martinez Dictated Date: 01/10/2023 12:53:55 AM Prelim Date: 01/10/2023 1:05:30 AM Sign Date: 01/10/2023 1:05:30 AM [facility] Note ORIGINAL EXAMINATION: CT OF THE ABDOMEN AND PELVIS WITH CONTRAST 01/09/2023 11:56 pm TECHNIQUE: CT of the abdomen and pelvis was performed with the administration of intravenous contrast. Multiplanar reformatted images are provided for review. Automated exposure control, iterative reconstruction, and/or weight based adjustment of the mA/kV was utilized to reduce the radiation dose to as low as reasonably achievable. COMPARISON: CT abdomen and pelvis on 11/07/2022 HISTORY: ORDERING SYSTEM PROVIDED HISTORY: Reason for Exam: pain Right abdominal pain FINDINGS: Lower Chest: The heart size is at the upper limits of normal. There is mild hypoventilation of the lung bases. 6 mm left lower lobe pulmonary nodule (series 3, image 20 is unchanged since 11/07/2022. There is no pleural fluid. Organs: The liver is normal in size. There is no hepatic lesion. Gallbladder contains gallstones. There is mild gallbladder wall thickening and pericholecystic inflammation that is new compared with previous exam. The bile ducts are not dilated. The pancreas, spleen, adrenal glands, and kidneys show no sign of acute abnormality. 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 There is no hydronephrosis. 2 cm right renal cyst is stable. GI/Bowel: There is no intestinal obstruction or inflammation. The appendix is normal. No abnormal fluid or gas collection is present in the abdomen. Pelvis: Urinary bladder is normal in size and contains no stones. Prostate is not enlarged. There is no abnormal fluid collection in the pelvis. Peritoneum/Retroperitoneum: Abdominal aorta is nonaneurysmal. No retroperitoneal lymph node enlargement is present. Bones/Soft Tissues: There are moderate findings of degenerative disc disease in the lumbar spine without fracture or subluxation. No acute or aggressive osseous lesion is present. IMPRESSION: Evidence of cholelithiasis with cholecystitis. No biliary ductal dilatation. 6 mm left lower lobe nodule is unchanged since 11/07/2022. Recommend continued with follow-up chest CT in 12 months. If patient is high risk for malignancy recommend an additional noncontrast chest CT at 18-24 months. Interpreted by: Pineda Candelario MD Preliminary Report By: Pineda Candelario MD Electronically signed By Pineda Candelario MD Dictated Date: 01/09/2023 11:58:47 PM Prelim Date: 01/10/2023 12:06:08 AM Sign Date: 01/10/2023 12:06:08 AM [facility]ing [facility] Note ORIGINAL EXAMINATION: CT OF THE ABDOMEN AND PELVIS WITH CONTRAST 01/09/2023 11:56 pm TECHNIQUE: CT of the abdomen and pelvis was performed with the administration of intravenous contrast. Multiplanar reformatted images are provided for review. Automated exposure control, iterative reconstruction, and/or weight based adjustment of the mA/kV was utilized to reduce the radiation dose to as low as reasonably achievable. COMPARISON: CT abdomen and pelvis on 11/07/2022 HISTORY: ORDERING SYSTEM PROVIDED HISTORY: Reason for Exam: pain Right abdominal pain FINDINGS: Lower Chest: The heart size is at the upper limits of normal. There is mild hypoventilation of the lung bases. 6 mm left lower lobe pulmonary nodule (series 3, image 20 is unchanged since 11/07/2022. There is no pleural fluid. Organs: The liver is normal in size. There is no hepatic lesion. Gallbladder contains gallstones. There is mild gallbladder wall thickening and pericholecystic inflammation that is new compared with previous exam. The bile ducts are not dilated. The pancreas, spleen, adrenal glands, and kidneys show no sign of acute abnormality. 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 There is no hydronephrosis. 2 cm right renal cyst is stable. GI/Bowel: There is no intestinal obstruction or inflammation. The appendix is normal. No abnormal fluid or gas collection is present in the abdomen. Pelvis: Urinary bladder is normal in size and contains no stones. Prostate is not enlarged. There is no abnormal fluid collection in the pelvis. Peritoneum/Retroperitoneum: Abdominal aorta is nonaneurysmal. No retroperitoneal lymph node enlargement is present. Bones/Soft Tissues: There are moderate findings of degenerative disc disease in the lumbar spine without fracture or subluxation. No acute or aggressive osseous lesion is present. IMPRESSION: Evidence of cholelithiasis with cholecystitis. No biliary ductal dilatation. 6 mm left lower lobe nodule is unchanged since 11/07/2022. Recommend continued with follow-up chest CT in 12 months. If patient is high risk for malignancy recommend an additional noncontrast chest CT at 18-24 months. Interpreted by: Pineda Candelario MD Preliminary Report By: Pineda Candelario MD Electronically signed By Pnieda Candelario MD Dictated Date: 01/09/2023 11:58:47 PM Prelim Date: 01/10/2023 12:06:08 AM Sign Date: 01/10/2023 12:06:08 AM Ordering Provider: [facility]12-13-2022 Hospital Discharge instructions Patient Education 08/24/2022 10:19:34 1-[facility] Discharge Instructions Template (06/2018) (Custom) [facility] SAME DAY SURGERY DISCHARGE INSTRUCTIONS PLEASE FOLLOW THE INSTRUCTIONS BELOW MARKED WITH AN X: _x__ Regular Diet: Start with clear liquids, then soup and crackers and gradually add other foods. _x__ Drink extra fluids. ___ Special Diet Instructions: ___ ACTIVITY: _x__ Avoid stress to suture line. Since you have had an anesthetic, it would be advisable not to drive, drink alcohol, or make major decisions over the next 24 hours. You may require more rest tonight and tomorrow. ___ May resume regular activity as tolerated. ___ Restrict activity as follows: ___ ___ Walk Only ___ ___ Do not go up and down stairs. ___ Do not ride in car until ___ ___ Do not drive car. ___ Do not have sexual intercourse. ___ No heavy lifting, pushing or straining. _x__ Other: _See post-ERCP instruction sheet__ BATHING/SHOWERING: ___ Sponge bathe until office visit. ___ Sitting in tub of warm water may relieve discomfort. ___ May tub bathe ___ May shower ___ On day after surgery sit in tub of warm water to soak off dressing. DRESSING: ___ Keep operative area dry and clean for ___ ___ Check the operative area for signs of bleeding. Apply pressure to the bleeding site if necessary and call your physician. ___ Change dressing as necessary using sterile dressing material or bandaid. ___ Reinforce dressing as necessary. ___ Change and care for wound as follows: ___ ___ Wear bra for ___ days following breast surgery for comfort. ___ Change drip pad as needed. ___ Wear scrotal support for comfort. WATCH FOR SIGNS OF INFECTION: (Usually appears 36-48 hours after surgery) Increased temperature (101 degrees Fahrenheit or higher) Redness or swelling Increased pain Foul odor or drainage. If you have any questions, please call your doctor at the number listed on your follow up instructions. Follow all instructions given to you by your physician. Please complete and return the survey you will be receiving in the mail to help us better serve our patients. Form: 1522 ([id number]) R: 12/19 Follow Up Care 07/01/2022 08:06:33 With:CORNELIO WEAVER MD Address: [address] [facility], [place] [phone] When: Unknown Comments:Follow-up as scheduled [facility] 12-13-2022 Summary of episode note Discharge Instructions Thank you for allowing [facility] to assist you with your healthcare needs. The following is importantdischarge information regarding your hospital visit. What to do next Follow Up Appointments Follow Up with CORNELIO WEAVER MD When Why: Follow-up as scheduled Where: [address] [facility], [place] [phone] Allergies NKA Medications Please ask your primary doctor or pharmacist before taking any other medication not listed, including over the counter drugs, herbal medications, vitamins and or supplements as they may interact withur home medications. What How Much When Instructions Last Dose Unchanged amLODIPine (amLODIPine 10 mg oral tablet) 1 tab(s) by mouth Once a day (in the morning) Unchanged lisinopril (lisinopril 20 mg oral tablet) 1 tab(s) by mouth Once a day (in the morning) Unchanged omega-3 polyunsaturated fatty acids (omega-3 fish oil 1000 mg oral capsule) 1 cap by mouth Once a day (in the morning) Please take this list to your next doctor s visit. Bring all medications you take, including over the counter medications, herbals and other supplements with you to your doctor s visit. Patients and families are reminded to discard old lists and to update any records with all medication providers or retail pharmacies. Education Materials [facility] SAME DAY SURGERY DISCHARGE INSTRUCTIONS PLEASE FOLLOW THE INSTRUCTIONS BELOW MARKED WITH AN X: _x__ Regular Diet: Start with clear liquids, then soup and crackers and gradually add other foods. _x__ Drink extra fluids. ___ Special Diet Instructions: ___ ACTIVITY: _x__ Avoid stress to suture line. Since you have had an anesthetic, it would be advisable not to drive, drink alcohol, or make major decisions over the next 24 hours. You may require more rest tonight and tomorrow. ___ May resume regular activity as tolerated. ___ Restrict activity as follows: ___ ___ Walk Only ___ ___ Do not go up and down stairs. ___ Do not ride in car until ___ ___ Do not drive car. ___ Do not have sexual intercourse. ___ No heavy lifting, pushing or straining. _x__ Other: _See post-ERCP instruction sheet__ BATHING/SHOWERING: ___ Sponge bathe until office visit. ___ Sitting in tub of warm water may relieve discomfort. ___ May tub bathe ___ May shower ___ On day after surgery sit in tub of warm water to soak off dressing. DRESSING: ___ Keep operative area dry and clean for ___ ___ Check the operative area for signs of bleeding. Apply pressure to the bleeding site if necessary and call your physician. ___ Change dressing as necessary using sterile dressing material or bandaid. ___ Reinforce dressing as necessary. ___ Change and care for wound as follows: ___ ___ Wear bra for ___ days following breast surgery for comfort. ___ Change drip pad as needed. ___ Wear scrotal support for comfort. WATCH FOR SIGNS OF INFECTION: (Usually appears 36-48 hours after surgery) Increased temperature (101 degrees Fahrenheit or higher) Redness or swelling Increased pain Foul odor or drainage. If you have any questions, please call your doctor at the number listed on your follow up instructions. Follow all instructions given to you by your physician. Please complete and return the survey you will be receiving in the mail to help us better serve our patients. Form: 1521 ([id number]) R: 12/19 Additional Information VACCINATE! IT SAVES LIVES! Members of the community who have not yet received the COVID-19 vaccine and would like to receive it can visit one of [facility] vaccine clinics. There are many vaccine clinic locations within the [facility]. For locations and available times, please visit [email or web address] It is important to note that some COVID mobile vaccine clinics are held outdoors and may be canceled in rainy or stormy conditions. To learn more about pediatric vaccinations (ages 5-11), we invite you to visit the [facility] webpage. [email or web address]: [email or web address]/pages/[email or web address]-Hsfbe-Rewjnadjghl-Gdrkpeegys-Fcbtn-Esg stions.htmlTo learn more about the COVID-19 vaccine, we invite you to visit the [employer] website for a list of frequently asked questions. [email or web address]-xyq-Yxcsuirv/iybsq-Rwzekux-Dvfpayiqyo _Asked-Questions.pdf [facility] Patient Portal Access Instructions: Stay connected with your healthcare team and access your personal medical information anytime with the [employer] Patient Portal.If you would like a full copy of your medical records, please contact the [facility] Medical Records Department, Tuesday through Tuesday between 8a.m. and 4:30p.m. Please follow the directions below to access the portal: 1.Access the email account you provided upon registration to the hospital.2.Look for an invitation email from [facility].3.Open the email and access the invitation link: Accept Invitation to [facility]4.Fill in the required montero to create your account. Sign into [email or web address] with your username and password that you created in the above steps to stay up to date. You can then view a summary of results, a summary of your visits, and the ability to download your summaries to your computer or send the information securely to a physician. Remember that your healthcare information is confidential, so carefully consider who you will allow to register on the imagine Patient Portal for access to your information. You can also access the imagine Patient Portal on the [employer] osbaldo. Simply click on Health Records under [employer] and then click on the [employer] logo. HOW TO SAFELY DISPOSE OF PRESCRIPTION MEDICATIONS Please use one of the following methods to safely dispose of your unused medications. 1.Use a drug disposal kit: the drug disposal pouch allows you to safely discard your old and unuseddrugs. Ask your nurse to give you one when you are discharged.2.Visit a local take-back location: Many local pharmacies and police departments have programs that collect old and unwanted prescriptiondrugs. Call your local pharmacy or go to http://[employer].Sleep Number/7C2Mz2m to find one close to you.3.Make use of household items: Use cat litter or old coffee grounds to dispose medications if other options arenot available. Mix your drugs with these household products, seal them in an airtight container andthrow it into the garbage. Call [facility]: [phone] to be sure your drugs can be disposed of in this way. Some medicines may require a different approach.4.Never flush your medications down the toilet. IF YOU HAVE BEEN PRESCRIBED AN OPIOID FOR PAIN If you have been prescribed an opioid (such as hydrocodone, oxycodone or morphine), it is critical to understand the possible side effects and risks of opioid pain medications. Even when taken as directed, opioids can have several side effects including: Tolerance, meaning you might need to take more of a medication for the same pain relief. Nausea, vomiting and/or constipation. Sleepiness, dizziness, dry mouth, confusion, depression or itching. Physical dependence, meaning you have withdrawal symptoms when a medication is stopped, can develop within a few days. KNOW YOUR RESPONSIBILITIES It is important to know exactly how much and how often to take the opioid pain medications you are prescribed. Never take opioids in higher amounts or more often than prescribed. Do not combine opioids with alcohol or other drugs that cause drowsiness, such as benzodiazepines, also known as benzos, including diazepam and alprazolam, muscle relaxants or sleep aids. Never sell or share prescription opioids. This is illegal. Store opioids in a secure place and out of reach of others (including children, family, friends and visitors). The last page of this document has been signed and retained as a CHART COPY. Signatures Patient Education Materials 1-SDS Discharge Instructions Template (06/2018) (Custom) Medication Leaflets My discharge plan and instructions have been reviewed and explained to me and I,GUSTAVO CERDA understand my current condition and have read and understand these discharge instructions. I have received a written copy of the plan/instructions. If I have questions, I am aware that I should contact my doctor. 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 Patient location: PACU. Assessment Postanesthesia assessment Vitals: Vital signs from flowsheet : Vital Signs 08/24/2022 9:42 EST Heart Rate Monitored 73 bpm Respiratory Rate 16 br/min Systolic Blood Pressure Non-Invasive 110 mmHg Diastolic Blood Pressure Non-Invasive 57 mmHg LOW Mean Arterial Pressure (NBP) 69 mmHg 08/24/2022 9:27 EST Temperature Temporal Artery 36.8 DegC Heart Rate Monitored 73 bpm Respiratory Rate 16 br/min Systolic Blood Pressure Non-Invasive 127 mmHg Diastolic Blood Pressure Non-Invasive 52 mmHg LOW Mean Arterial Pressure (NBP) 72 mmHg 08/24/2022 9:25 EST Heart Rate Monitored 74 bpm bpm Respiratory Rate - Anes 3 br/min br/min Systolic Blood Pressure Non-Invasive 100 mmHg mmHg Diastolic Blood Pressure Non-Invasive 60 mmHg mmHg 08/24/2022 9:22 EST Systolic Blood Pressure Non-Invasive 98 mmHg mmHg Diastolic Blood Pressure Non-Invasive 52 mmHg mmHg 08/24/2022 9:20 EST Heart Rate Monitored 66 bpm bpm Respiratory Rate - Anes 12 br/min br/min 08/24/2022 9:19 EST Systolic Blood Pressure Non-Invasive 102 mmHg mmHg Diastolic Blood Pressure Non-Invasive 48 mmHg mmHg 08/24/2022 9:15 EST Heart Rate Monitored 73 bpm bpm Respiratory Rate - Anes 10 br/min br/min 08/24/2022 9:13 EST Systolic Blood Pressure Non-Invasive 98 mmHg mmHg Diastolic Blood Pressure Non-Invasive 65 mmHg mmHg 08/24/2022 9:10 EST Heart Rate Monitored 69 bpm bpm Respiratory Rate - Anes 12 br/min br/min Systolic Blood Pressure Non-Invasive 85 mmHg mmHg Diastolic Blood Pressure Non-Invasive 55 mmHg mmHg 08/24/2022 9:08 EST Systolic Blood Pressure Non-Invasive 74 mmHg mmHg Diastolic Blood Pressure Non-Invasive 45 mmHg mmHg 08/24/2022 9:05 EST Heart Rate Monitored 70 bpm bpm Respiratory Rate - Anes 3 br/min br/min 08/24/2022 9:02 EST Systolic Blood Pressure Non-Invasive 119 mmHg mmHg Diastolic Blood Pressure Non-Invasive 106 mmHg mmHg 08/24/2022 9:00 EST Temperature (Route Not Specified) 36.5 DegC DegC Heart Rate Monitored 74 bpm bpm Respiratory Rate - Anes 0 br/min br/min 08/24/2022 8:59 EST Systolic Blood Pressure Non-Invasive 139 mmHg mmHg Diastolic Blood Pressure Non-Invasive 56 mmHg mmHg 08/24/2022 7:34 EST Temperature Temporal Artery 36.8 DegC Peripheral Pulse Rate 77 bpm Respiratory Rate 16 br/min Systolic Blood Pressure Non-Invasive 138 mmHg Diastolic Blood Pressure Non-Invasive 76 mmHg . Mental status: at preoperative baseline. Respiratory function: respirations are non-labored, Stable. Respiratory support: none. CV function: Stable. Cardiovascular support: none. Pain: Satisfactory. Nausea status: Satisfactory. Postoperative hydration status: within normal limits. Notes: Patient is sufficiently recovered from anesthesia to participate in the evaluation. No follow-up care needed. No complications post-anesthesia.. Digitally Signed by MARRY BAUMAN MD on 08/24/2022 09:45 AM [id number] Anesthesiology Consult note Patient: GUSTAVO CERDA Age: 61 years Sex: Male : 1960 Associated Diagnoses: None Author: CHAVEZ SINCLAIR MD Preoperative Information NPO > 8 hours Anesthesia history Patient's history: negative. Health Status Allergies: Allergic Reactions (Selected) NKA, Allergies (1) ActiveReaction NKANone Documented Current medications: (Selected) Inpatient Medications Ordered Dextrose 5% in Water 500 mL: Start: 08/24/22 5:00:00 EST, 18 hour(s), Stop date 08/24/22 22:59:00 EST, Rate: 20 mL/hr Kefzol 1 gm IV Syringe: Start: 08/24/22 5:00:00 EST, Dose= 1 gram(s), = 10 mL, IV Push (INT), PREOPpharm, 18 hour(s), Stop date 08/24/22 22:59:00 EST, Rate: 120 mL/hr, Infuse over: 5 minute(s), 10 mL Zofran: Start: 08/24/22 5:00:00 EST, Dose = 4 mg, = 2 mL, IV Push, PREOP pharm, Stop: 08/25/22 0:00:00 EST, 0 Documented Medications Documented amLODIPine 10 mg oral tablet: Dose : 10 mg = 1 tab(s), Oral, qAM lisinopril 20 mg oral tablet: Dose : 20 mg = 1 tab(s), Oral, qAM omega-3 fish oil 1000 mg oral capsule: Dose : 1,000 mg = 1 cap(s), Oral, qAM, 0 Refill(s) Problem list: Medical Arthritis / SNOMED CT 8077054 / Confirmed Bile duct leak / SNOMED CT 796762503 / Confirmed High blood pressure / SNOMED CT 72584341 / Confirmed Pancreatitis / SNOMED CT 968718069 / Confirmed Sleep apnea / SNOMED CT 719251443 / Confirmed, Active Problems (14) Abdominal pain Apnea Arthritis Bile duct leak BiPAP (biphasic positive airway pressure) dependence DVT of lower limb, acute Glasses High blood pressure Horseshoe kidney CONNER (nonalcoholic steatohepatitis) Pancreatitis Sleep apnea Tobacco use Urinary tract infection Histories Past Medical History: No active or resolved past medical history items have been selected or recorded. Procedure history: Biliary stent ([id number]) in the month of 05/2022 at 61 Years. Comments: 08/17/2022 9:47 HANNAH Fontana Replaced ERCP ([id number]) in the month of 03/2022 at 61 Years. Cholecystectomy ([id number]) in 2021 at 61 Years. Liver ([id number]) in 1990 at 30 Years. Comments: 03/31/2022 14:35 Arianne Hollins RN liver laceration Trauma ([id number]) in 1967 at 7 Years. Comments: 03/31/2022 14:34 Arianne Hollins RN as a child fell in [facility]- multiple surgeries Tonsillectomy and adenoidectomy ([id number]). Colonoscopy ([id number]). Rotator cuff repair ([id number]). Comments: 05/25/2022 10:14 HANNAH Wilkerson bilateral Arthroscopic trimming of meniscus ([id number]). Comments: 05/25/2022 10:14 HANNAH Wilkerson right Social History Social & Psychosocial Habits Alcohol 03/31/2022 Use: Never 2Risk Assessment: Denies Alcohol Use Substance Abuse 03/31/2022 Use: Never 2Risk Assessment: Denies Substance Abuse Tobacco 03/31/2022 Tobacco Use: Never (less than 100 in l, Smoker, current status un 2Risk Assessment: Denies Tobacco Use Home/Environment 05/25/2022 Domestic Concerns Denies Living situation: Home/Independent Current Home Treatments bipap Spouse Name Keisha Marital Status of Patient if Patient Independent Adult: 06/01/[address]: Yes Nutrition/Health 03/31/2022 Type of diet: Regular Appetite Good Eating Difficulties None . Physical Examination Vital Signs(last 24 hrs) Last Charted Resp Rate 16 br/min (AUG 24 07:34) HPB531 mmHg (AUG 24 07:34) DBP76 mmHg (AUG 24 07:34) Measurements from flowsheet : Measurements 08/24/2022 7:34 EST Height 177.8 cm Height in inches 70 inch(es) Admission Weight 156.9 kg Weight Lbs 345.2 lb Weight Method Actual Pioneer Body Weight 73.00 kg Type of Scale Used Bed scale Admission Body Mass Index 49.63 m2 General: Alert and oriented. Airway: Mallampati classification: III (soft palate, base of uvula visible). Dentition Evaluation: Intact. Respiratory: Lungs are clear to auscultation, Respirations are non-labored. Cardiovascular: Normal rate, Regular rhythm. Heart Sounds: Normal. Neurologic: Alert, Oriented. Review / Management Documentation reviewed: Current records. Assessment and Plan [place] [employer]esthesi[employer] (ASA) physical status classification: Class III. Anesthetic Preoperative Plan Premedication: intravenous. Anesthetic technique: General. Induction: intravenously. Maintenance airway: Oral endotracheal tube. Postoperative pain management: Per surgeon. Informed consent: signed by patient. Notes: Morbid Obesity. Digitally Signed by CHAVEZ SINCLAIR MD on 08/24/2022 08:25 AM [id number] Discharge instructions Patient Education 06/01/2022 11:01:22 1-[facility] Discharge Instructions Template (06/2018)(CUSTOM) [facility] SAME DAY SURGERY DISCHARGE INSTRUCTIONS PLEASE FOLLOW THE INSTRUCTIONS BELOW MARKED WITH AN X: xRegular Diet: Start with clear liquids, then soup and crackers and gradually add other foods. xDrink extra fluids. ___ Special Diet Instructions: ___ ACTIVITY: xAvoid stress to suture line. Since you have had an anesthetic, it would be advisable not to drive, drink alcohol, or make major decisions over the next 24 hours. You may require more rest tonight and tomorrow. ___ May resume regular activity as tolerated. ___ Restrict activity as follows: ___ ___ Walk Only ___ ___ Do not go up and down stairs. ___ Do not ride in car until ___ ___ Do not drive car. ___ Do not have sexual intercourse. xNo heavy lifting, pushing or straining. xOther: instructions per dr weaver BATHING/SHOWERING: ___ Sponge bathe until office visit. ___ Sitting in tub of warm water may relieve discomfort. ___ May tub bathe xMay shower ___ On day after surgery sit in tub of warm water to soak off dressing. DRESSING: xKeep operative area dry and clean for ___ xCheck the operative area for signs of bleeding. Apply pressure to the bleeding site if necessary and call your physician. ___ Change dressing as necessary using sterile dressing material or bandaid. ___ Reinforce dressing as necessary. ___ Change and care for wound as follows: ___ ___ Wear bra for ___ days following breast surgery for comfort. ___ Change drip pad as needed. ___ Wear scrotal support for comfort. WATCH FOR SIGNS OF INFECTION: (Usually appears 36-48 hours after surgery) Increased temperature (101 degrees Fahrenheit or higher) Redness or swelling Increased pain Foul odor or drainage. If you have any questions, please call your doctor at the number listed on your follow up instructions. Follow all instructions given to you by your physician. Please complete and return the survey you will be receiving in the mail to help us better serve our patients. Form: 1522 ([id number]) R: 12/19 Follow Up Care 04/16/2022 10:44:37 With:CORNELIO WEAVER MD Address: [address] Manny HUSSEIN [facility], [place] [address] [phone] When: Unknown [facility] 09-20-2022 Summary of episode note Discharge Instructions Thank you for allowing [facility] to assist you with your healthcare needs. The following is importantdischarge information regarding your hospital visit. What to do next Follow Up Appointments Follow Up with CORNELIO WEAVER MD When Where: Lizabeth HUSSEIN [facility], [place] [address] [phone] The Following Activity and Diet Have Been Ordered for You No qualifying data available. No qualifying data available. The Following Equipment Has Been Ordered for You No qualifying data available. The Following Treatments Have Been Ordered for You Discharge Labs No qualifying data available. Discharge Radiology No qualifying data available. Other Therapies No qualifying data available. Post Acute Orders No qualifying data available. Someone Will Contact You Regarding These Home Health Referrals No home referrals have been ordered for you. No one will call you. Allergies NKA Medications Please ask your primary doctor or pharmacist before taking any other medication not listed, including over the counter drugs, herbal medications, vitamins and or supplements as they may interact withyour home medications. What How Much When Instructions Last Dose Unchanged amLODIPine (amLODIPine 10 mg oral tablet) 1 tab(s) by mouth Once a day (in the morning) Unchanged lisinopril (lisinopril 20 mg oral tablet) 1 tab(s) by mouth Once a day (in the morning) Unchanged magnesium oxide (magnesium oxide 400 mg oral tablet) 1 tab(s) by mouth Once a day (in the morning) Unchanged omega-3 polyunsaturated fatty acids (omega-3 fish oil 1000 mg oral capsule) 1 cap by mouth Once a day (in the morning) Please take this list to your next doctor s visit. Bring all medications you take, including over the counter medications, herbals and other supplements with you to your doctor s visit. Patients and families are reminded to discard old lists and to update any records with all medication providers or retail pharmacies. Education Materials [facility] SAME DAY SURGERY DISCHARGE INSTRUCTIONS PLEASE FOLLOW THE INSTRUCTIONS BELOW MARKED WITH AN X: xRegular Diet: Start with clear liquids, then soup and crackers and gradually add other foods. xDrink extra fluids. ___ Special Diet Instructions: ___ ACTIVITY: xAvoid stress to suture line. Since you have had an anesthetic, it would be advisable not to drive, drink alcohol, or make major decisions over the next 24 hours. You may require more rest tonight and tomorrow. ___ May resume regular activity as tolerated. ___ Restrict activity as follows: ___ ___ Walk Only ___ ___ Do not go up and down stairs. ___ Do not ride in car until ___ ___ Do not drive car. ___ Do not have sexual intercourse. xNo heavy lifting, pushing or straining. xOther: instructions per dr weaver BATHING/SHOWERING: ___ Sponge bathe until office visit. ___ Sitting in tub of warm water may relieve discomfort. ___ May tub bathe xMay shower ___ On day after surgery sit in tub of warm water to soak off dressing. DRESSING: xKeep operative area dry and clean for ___ xCheck the operative area for signs of bleeding. Apply pressure to the bleeding site if necessary and call your physician. ___ Change dressing as necessary using sterile dressing material or bandaid. ___ Reinforce dressing as necessary. ___ Change and care for wound as follows: ___ ___ Wear bra for ___ days following breast surgery for comfort. ___ Change drip pad as needed. ___ Wear scrotal support for comfort. WATCH FOR SIGNS OF INFECTION: (Usually appears 36-48 hours after surgery) Increased temperature (101 degrees Fahrenheit or higher) Redness or swelling Increased pain Foul odor or drainage. If you have any questions, please call your doctor at the number listed on your follow up instructions. Follow all instructions given to you by your physician. Please complete and return the survey you will be receiving in the mail to help us better serve our patients. Form: 1522 ([id number]) R: 12/19 Additional Information VACCINATE! IT SAVES LIVES! Members of the community who have not yet received the COVID-19 vaccine and would like to receive it can visit one of [facility] vaccine clinics. There are many vaccine clinic locations within the [facility]. For locations and available times, please visit [email or web address] It is important to note that some COVID mobile vaccine clinics are held outdoors and may be canceled in rainy or stormy conditions. To learn more about pediatric vaccinations (ages 5-11), we invite you to visit the [facility] webpage. [email or web address] learn more about the COVID-19 vaccine, we invite you to visit the [facility] website for a list of frequently asked questions. [email or web address] [facility] Patient Portal Access Instructions: Stay connected with your healthcare team and access your personal medical information anytime with the [facility] Patient Portal.If you would like a full copy of your medical records, please contact the [facility] Medical Records Department, Tuesday through Tuesday between 8a.m. and 4:30p.m. Please follow the directions below to access the portal: 1.Access the email account you provided upon registration to the [facility].2.Look for an invitation email from [facility].3.Open the email and access the invitation link: Accept Invitation to imagine4.Fill in the required montero to create your account. Sign into www.Bunkspeed with your username and password that you created in the above steps to stay up to date. You can then view a summary of results, a summary of your visits, and the ability to download your summaries to your computer or send the information securely to a physician. Remember that your healthcare information is confidential, so carefully consider who you will allow to register on the imagine Patient Portal for access to your information. You can also access the imagine Patient Portal on the [employer]. Simply click on Health Records under [employer] and then click on the [employer] logo. HOW TO SAFELY DISPOSE OF PRESCRIPTION MEDICATIONS Please use one of the following methods to safely dispose of your unused medications. 1.Use a drug disposal kit: the drug disposal pouch allows you to safely discard your old and unuseddrugs. Ask your nurse to give you one when you are discharged.2.Visit a local take-back location: Many local pharmacies and police departments have programs that collect old and unwanted prescriptiondrugs. Call your local pharmacy or go to [email or web address] Number/[email or web address] to find one close to you.3.Make use of household items: Use cat litter or old coffee grounds to dispose medications if other options arenot available. Mix your drugs with these household products, seal them in an airtight container andthrow it into the garbage. Call [facility]: [phone] to be sure your drugs can be disposed of in this way. Some medicines may require a different approach.4.Never flush your medications down the toilet. IF YOU HAVE BEEN PRESCRIBED AN OPIOID FOR PAIN If you have been prescribed an opioid (such as hydrocodone, oxycodone or morphine), it is critical to understand the possible side effects and risks of opioid pain medications. Even when taken as directed, opioids can have several side effects including: Tolerance, meaning you might need to take more of a medication for the same pain relief. Nausea, vomiting and/or constipation. Sleepiness, dizziness, dry mouth, confusion, depression or itching. Physical dependence, meaning you have withdrawal symptoms when a medication is stopped, can develop within a few days. KNOW YOUR RESPONSIBILITIES It is important to know exactly how much and how often to take the opioid pain medications you are prescribed. Never take opioids in higher amounts or more often than prescribed. Do not combine opioids with alcohol or other drugs that cause drowsiness, such as benzodiazepines, also known as benzos, including diazepam and alprazolam, muscle relaxants or sleep aids. Never sell or share prescription opioids. This is illegal. Store opioids in a secure place and out of reach of others (including children, family, friends and visitors). The last page of this document has been signed and retained as a CHART COPY. Signatures Patient Education Materials 1-SDS Discharge Instructions Template (06/2018)(CUSTOM) Medication Leaflets My discharge plan and instructions have been reviewed and explained to me and I,GUSTAVO CERDA understand my current condition and have read and understand these discharge instructions. I have received a written copy of the plan/instructions. If I have questions, I am aware that I should contact my doctor. 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 Patient location: PACU. Assessment Postanesthesia assessment Vitals: Vital signs from flowsheet : Vital Signs 06/01/2022 10:28 EDT Temperature Temporal Artery 36.5 DegC Heart Rate Monitored 61 bpm Respiratory Rate 20 br/min Systolic Blood Pressure NBP 111 mmHg Diastolic Blood Pressure NBP 57 mmHg LOW Mean Arterial Pressure (NBP) 69 mmHg 06/01/2022 10:13 EDT Heart Rate Monitored 64 bpm Respiratory Rate 18 br/min Systolic Blood Pressure NBP 115 mmHg Diastolic Blood Pressure NBP 60 mmHg Mean Arterial Pressure (NBP) 71 mmHg 06/01/2022 10:00 EDT Respiratory Rate 0 br/min br/min 06/01/2022 9:58 EDT Temperature Temporal Artery 36.5 DegC Heart Rate Monitored 65 bpm Respiratory Rate 20 br/min Systolic Blood Pressure NBP 97 mmHg Diastolic Blood Pressure NBP 56 mmHg LOW Mean Arterial Pressure (NBP) 66 mmHg 06/01/2022 9:55 EDT Heart Rate Monitored 68 bpm bpm Respiratory Rate 7 br/min br/min Systolic Blood Pressure NBP 119 mmHg mmHg Diastolic Blood Pressure NBP 56 mmHg mmHg 06/01/2022 9:53 EDT Systolic Blood Pressure NBP 118 mmHg mmHg Diastolic Blood Pressure NBP 52 mmHg mmHg 06/01/2022 9:50 EDT Respiratory Rate 17 br/min br/min 06/01/2022 9:45 EDT Temperature (Route Not Specified) 36.44 DegC DegC Heart Rate Monitored 64 bpm bpm Respiratory Rate 12 br/min br/min Systolic Blood Pressure NBP 94 mmHg mmHg Diastolic Blood Pressure NBP 59 mmHg mmHg 06/01/2022 9:42 EDT Systolic Blood Pressure NBP 96 mmHg mmHg Diastolic Blood Pressure NBP 60 mmHg mmHg 06/01/2022 9:40 EDT Temperature (Route Not Specified) 36.43 DegC DegC Heart Rate Monitored 67 bpm bpm Respiratory Rate 11 br/min br/min 06/01/2022 9:39 EDT Systolic Blood Pressure NBP 89 mmHg mmHg Diastolic Blood Pressure NBP 56 mmHg mmHg 06/01/2022 9:36 EDT Systolic Blood Pressure NBP 95 mmHg mmHg Diastolic Blood Pressure NBP 58 mmHg mmHg 06/01/2022 9:35 EDT Heart Rate Monitored 69 bpm bpm Respiratory Rate 15 br/min br/min 06/01/2022 9:34 EDT Systolic Blood Pressure NBP 91 mmHg mmHg Diastolic Blood Pressure NBP 56 mmHg mmHg 06/01/2022 9:32 EDT Systolic Blood Pressure NBP 108 mmHg mmHg Diastolic Blood Pressure NBP 57 mmHg mmHg 06/01/2022 9:30 EDT Heart Rate Monitored 71 bpm bpm Respiratory Rate 11 br/min br/min 06/01/2022 9:27 EDT Systolic Blood Pressure NBP 115 mmHg mmHg Diastolic Blood Pressure NBP 82 mmHg mmHg 06/01/2022 9:25 EDT Heart Rate Monitored 72 bpm bpm Respiratory Rate 0 br/min br/min Systolic Blood Pressure NBP 125 mmHg mmHg Diastolic Blood Pressure NBP 61 mmHg mmHg 06/01/2022 6:43 EDT Temperature Temporal Artery 36.4 DegC Apical Heart Rate 64 bpm Respiratory Rate 16 br/min Systolic Blood Pressure 138 mmHg Diastolic Blood Pressure 69 mmHg Mean Arterial Pressure 92 mmHg . Mental status: at preoperative baseline. Respiratory function: respirations are non-labored, stable. Respiratory support: none. CV function: stable. Cardiovascular support: none. Pain: satisfactory. Nausea status: satisfactory. Postoperative hydration status: within normal limits. Notes: Patient is sufficiently recovered from anesthesia to participate in the evaluation. No follow-up care needed. No complications post-anesthesia.. Digitally Signed by LOPEZ JANE MD on 06/01/2022 10:41 AM [id number] Anesthesiology Consult note Patient: GUSTAVO CERDA Age: 61 years Sex: Male : 1960 Associated Diagnoses: None Author: LOPEZ JANE MD Preoperative Information Time of last food or liquid consumption: 05/31/2022 18:00:00 Anesthesia history Patient's history: negative. Family's history: negative. Health Status Allergies: Allergic Reactions (All) NKA, Allergies (1) ActiveReaction NKANone Documented Current medications: (Selected) Inpatient Medications Ordered Dextrose 5% in Water intravenous soln 1,000 mL: 20 mL/hr, Intravenous, Stop: 06/02/22 0:00:00 EDT Kefzol 1 gm IV Syringe: 1 gram(s), 10 mL, 120 mL/hr, IV Push (INT), PREOP pharm Zofran: 4 mg, 2 mL, IV Push, PREOP pharm, PRN: Nausea Documented Medications Documented amLODIPine 10 mg oral tablet: 10 mg, 1 tab(s), Oral, qAM lisinopril 20 mg oral tablet: 20 mg, 1 tab(s), Oral, qAM magnesium oxide 400 mg oral tablet: 400 mg, 1 tab(s), Oral, qAM omega-3 fish oil 1000 mg oral capsule: 1,000 mg, 1 cap(s), Oral, qAM, 0 Refill(s), Medications (3) Active Scheduled: (1) ceFAZolin syringe 1 gram(s) 10 mL, IV Push (INT), PREOP pharm Continuous: (1) Dextrose 5% in Water 1,000 mL 1,000 mL, Intravenous, 20 mL/hr PRN: (1) ondansetron 2 mg/ 1 mL 2 mL INJ 4 mg 2 mL, IV Push, PREOP pharm Problem list: Medical Pancreatitis / SNOMED CT 414110351 / Confirmed Bile duct leak / SNOMED CT 780632878 / Confirmed High blood pressure / SNOMED CT 89591701 / Confirmed Sleep apnea / SNOMED CT 381320591 / Confirmed Arthritis / SNOMED CT 4379680 / Confirmed, Active Problems (14) Abdominal pain Apnea Arthritis Bile duct leak BiPAP (biphasic positive airway pressure) dependence DVT of lower limb, acute Glasses High blood pressure Horseshoe kidney CONNER (nonalcoholic steatohepatitis) Pancreatitis Sleep apnea Tobacco use Urinary tract infection Histories Past Medical History: No active or resolved past medical history items have been selected or recorded. Family History: Cancer Sister Cancer of colon Father Procedure history: Cholecystectomy (29990936) in 2021 at 61 Years. ERCP (5892594676) in 2021 at 61 Years. Liver ([id number]) in 1990 at 30 Years. Comments: 03/31/2022 14:35 Arianne Hollins RN liver laceration Trauma ([id number]) in 1967 at 7 Years. Comments: 03/31/2022 14:34 Arianne Hollins RN as a child fell in [facility]- multiple surgeries Tonsillectomy and adenoidectomy (314200036). Colonoscopy (601748604). Rotator cuff repair (402430694). Comments: 05/25/2022 10:14 HANNAH Wilkerson bilateral Arthroscopic trimming of meniscus (579515306). Comments: 05/25/2022 10:14 HANNAH Wilkerson right Social History Social & Psychosocial Habits Alcohol 03/31/2022 Use: Never 2Risk Assessment: Denies Alcohol Use Substance Abuse 03/31/2022 Use: Never 2Risk Assessment: Denies Substance Abuse Tobacco 03/31/2022 Tobacco Use: Never (less than 100 in l, Smoker, current status un 2Risk Assessment: Denies Tobacco Use Home/Environment 05/25/2022 Domestic Concerns Denies Living situation: Home/Independent Current Home Treatments bipap Spouse Name Keisha Marital Status of Patient if Patient Independent Adult: 06/01/[address]: Yes Nutrition/Health 03/31/2022 Type of diet: Regular Appetite Good Eating Difficulties None . Physical Examination Vital Signs 06/01/2022 6:43 EDT Temperature Temporal Artery 36.4 DegC Apical Heart Rate 64 bpm Respiratory Rate 16 br/min Systolic Blood Pressure 138 mmHg Diastolic Blood Pressure 69 mmHg Mean Arterial Pressure 92 mmHg Vital Signs(last 24 hrs) Last Charted Resp Rate 16 br/min (JUN 01 06:43) Measurements from flowsheet : Measurements 06/01/2022 6:43 EDT Height 175.3 cm Height in inches 69 inch(es) Admission Weight 154.8 kg Weight Lbs 340.6 lb Weight Method Actual Pioneer Body Weight 70.74 kg Type of Scale Used Bed scale Admission Body Mass Index 50.37 m2 Pain assessment: Pain Assessment 06/01/2022 6:43 EDT Primary Pain Intensity 0 Pain Scale Type 0-10 Pain scale . General: Alert and oriented, No acute distress. Airway: Normal temporomandibular joint mobility, Nares patent, Normal neck range of motion, Tracheamidline. Mallampati classification: II (soft palate, fauces, uvula visible). Head: Normocephalic, Atraumatic. Dentition Evaluation: Intact, Own teeth. Respiratory: Lungs are clear to auscultation. Cardiovascular: Normal rate, Regular rhythm. Neurologic: Alert, Oriented. Review / Management Results review: No qualifying data available , Lab results 06/01/2022 7:06 EDT SN - Preop - CTm Pt Ready for OR/Proced 06/01/2022 7:05 06/01/2022 7:06 EDT ondansetron 4 mg mg 06/01/2022 7:04 EDT Dextrose 5% in Water Begin Bag 1,000 mL mL 06/01/2022 6:49 EDT SN - Preop - CTm Pt in SDS Room 06/01/2022 6:43 06/01/2022 6:47 EDT Sensory Deficits None Safety Brochure Information Reviewed Yes Lolita Galdamez Video Viewed Previously viewed Barriers to Learning None evident Teaching Method Explanation, Printed materials Teaching Evaluation Verbalizes/Nonverbally indicates understanding Discharge To, Anticipated Home independently Personal Devices, Patient Valuables Glasses Admission Note-Nursing Same Day Patient History (Modified) 06/01/2022 6:43 EDT Height 175.3 cm Height in inches 69 inch(es) Admission Weight 154.8 kg Weight Lbs 340.6 lb Weight Method Actual Pioneer Body Weight 70.74 kg Type of Scale Used Bed scale Admission Body Mass Index 50.37 m2 Temperature Temporal Artery 36.4 DegC Apical Heart Rate 64 bpm Respiratory Rate 16 br/min Systolic Blood Pressure 138 mmHg Diastolic Blood Pressure 69 mmHg Mean Arterial Pressure 92 mmHg Primary Pain Intensity 0 Pain Scale Type 0-10 Pain scale Heart Rhythm Regular All Lobes Breath Sounds Clear, Equal Oxygen Therapy Room air Oxygen Saturation 95 % Abdomen Description Non-distended, Semi-firm Abdomen Palpation Non-Tender Urinary Elimination Voiding, no difficulties Skin Temperature Warm Skin Description [place], Dry Skin Integrity Intact Neurological Symptoms Patient denies Level of Consciousness Alert Violence Risk Confused No Violence Risk Irritable No Violence Risk Boisterous No Violence Risk Verbal Threats No Violence Risk Physical Threats No Violence Risk Attacking Objects No Violence Risk Predictor Score 0 Violence Risk Intervention None Violence Risk Current Interventions None Affect/Behavior Appropriate, Calm, Cooperative Orientation Oriented x 4 Allergies Yes Consent Form Signed Yes Patient Dressed In Hospital gown CHG Preoperative Wash/Wipe Not done Non-CHG Preoperative Shampoo Not applicable Preop Nasal Swab Not done CHG Skin Prep Not completed - surgery contraindicated History & Physical Update On Chart Yes History & Physical On Chart Yes Obstructive Sleep Apnea Assess Completed Yes MRSA/MSSA Protocol No Individuals Taught Patient, Spouse Learning Readiness Willing to learn Barriers to Learning None evident Teaching Method Explanation, Printed materials Preferred Written Language Togolese Family/Caregiver Prefer Written Language Togolese Preferred Spoken Language Togolese Family/Caregiver Prefer Spoken Language Togolese General Infection Prevention Strategies Hand hygiene Surgical Site Infection Prevention SSI FAQ provided, Hand hygiene Infection Prevention Teaching Evaluation Verbalizes/Nonverbally indicates understanding Pre Procedure/Surgery Education Appropriate expectations Procedure/Surgical Teaching Evaluation Verbalizes/Nonverbally indicates understanding Ed-Safety Verbalizes/Nonverbally indicates understanding Ed-Pain Scale Verbalizes/Nonverbally indicates understanding Ed-Pain, Acute Verbalizes/Nonverbally indicates understanding Belongings At Bedside Cell phone, Glasses, Pants, Shirt, Shoes, Socks, Undergarments Activity Status ADL Awake, Resting NPO Status Maintained Standard Safety ID band on, Call device within reach, Bed in low position, Wheels locked, Upper/Half-Length side-rails up, Phone within reach, personal items within reach, Visitor at bedside Demonstrates Correct Call Light Use Yes Allergy Band on and Verified No Patient ID Band on and Verified Yes Implants Verified Yes Pacemaker/AICD Verified No Last Fluid Intake 06/01/2022 5:00 Last Food Intake 05/31/2022 20:00 Last Void 06/01/2022 5:30 05/31/2022 12:26 EDT Surgery Scheduled On Date/Time 06/01/2022 8:30 Patient Aware Date/Time Of Surgery Yes Arrival Time the Day of Surgery 06/01/2022 6:30 Patient Aware of Arrival Time Yes Pre-Op Patient Education NPO after midnight, No smoking after midnight, No jewelry, Responsible [place] Party, Aware of surgery location, Patient instructed to take ordered medications SN - Preprocedure Comments Verbalizes/Nonverbally indicates understanding, Other: Spoke with pt's -- Keisha. Instructed for pt to bring in all home meds the am of OR. Admission Note-Nursing Date\Time Correction . Assessment and Plan [place] [employer]esthesi[employer] (ASA) physical status classification: Class III. Anesthetic Preoperative Plan Anesthetic technique: General. Induction: intravenously. Maintenance airway: Oral endotracheal tube, nasal cannula with ETCO2 monitor. Postoperative pain management: Per surgeon. Risks discussed: nausea, vomiting, headache, sore throat, dental injury, hypotension, allergic reaction, serious complications. Informed consent: signed by patient. Notes: CONNER, HTN, Hx of DVT, ABDULKADIR with bipap, morbid obesity with BMI 50.37, GA vs MAC discussed with patient. Digitally Signed by LOPEZ JANE MD on 06/01/2022 08:16 AM Digitally Signed by KAYLEY REBOLLEDO on 06/01/2022 09:28 AM [id number] NoteHNO ID: [id number] Author: Kole Mancia MD Service: ? Author Type: Physician Type: Progress Notes Filed: 05/25/2022 3:27 PM Note Text: Subjective: Patient is status post cholecystectomy back in February by Dr. Alex patient's postoperative course was complicated by needing to ERCPs he has had his drain and ever since then. It has drained very little and Dr. Alex believes that it can be removed and has had conversations with the physician who performed the ERCP and they are in agreement. Objective:Blood pressure 138/72, pulse 84, temperature 36.4 ?C (97.5 ?F), height 177.8 cm (5' 10), weight 79.4 kg (175 lb), SpO2 98 %. Right upper quadrant KENNETH drain was removed without difficulty and in its entirety. Sterile dressings were applied and the patient tolerated the procedure well. Patient sutured already come out and there was nothing to cut. Subjective: Aftercare Plan: Patient can follow back up with Dr. Alex and the textile pin worker on an as-needed basis.[facility]09-13-2022 History of Present illness Narrative* Kole Mancia MD - 05/25/2022 3:27 PM EDT Subjective: Patient is status post cholecystectomy back in February by Dr. Alex patient's postoperativecourse was complicated by needing to ERCPs he has had his drain and ever since then. It has drainedvery little and Dr. Alex believes that it can be removed and has had conversations with the physician who performed the ERCP and they are in agreement. Objective:Blood pressure 138/72, pulse 84, temperature 36.4 C (97.5 F), height 177.8 cm (5' 10), weight 79.4 kg (175 lb), SpO2 98 %. Right upper quadrant KENNETH drain was removed without difficulty and in its entirety. Sterile dressingswere applied and the patient tolerated the procedure well. Patient sutured already come out and there was nothing to cut. Subjective: Aftercare Plan: Patient can follow back up with Dr. 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 [facility] Miscellaneous Notes* Telephone Encounter - Jeannie Marquez RN - 05/25/2022 12:37 PM EDT Gustavo called to report the stitch holding his drain came loose. He thinks the drain is coming outa bit. He stated there is red in the drain tubing. Dr. Mancia agreed to see the patient today 05/25 at 2:45 p.m. documented in this encounterM[facility]own [facility]09-08-2022 NoteHNO ID: [id number] Author: RT David(Thomas) Service: ? Author Type: Coater Helper Type: Progress Notes Filed: 05/20/2022 1:39 PM Note Text: Radiology Service Progress Note DATE OF SERVICE: May 20, 2022 TIME: 1:39 PM PATIENT IDENTITY VERIFICATION COMPLETED USING TWO (2) STANDARD IDENTIFIERS: Name and Date of confirmed by patient verbally. FALL SCREENING: Has the patient had 2 falls in the last year or 1 fall with injury or currently using an Ambulatory Assistive Device (Walker, Cane, Wheelchair, Crutches, etc.)? No PATIENT GENDER DATA: Male PATIENT RELEVANT IMPLANT DATA REVIEWED: Yes ALLERGIES: Reviewed and unchanged CONTRAST ALLERGY: NO. EXAM: CT -CONTRAST INDUCED NEPHROPATHY RISK FACTORS: Patient age > 60 years CREATININE: No results found for: CREAT, EGFROTH, EGFRAA P.O.C.T. RESULTS: POC done: Yes, See Lab Tab May 20, 2022 TREATMENT: N/A PERIPHERAL IV DATA: Ambulatory: A peripheral IV was started in the Left antecubital site with a Angio cath: 22 gauge. RADIOLOGY DEPARTMENT: CT; Exam(s) Completed: Abdomen SIGNATURE: RT Reena(Thomas) PATIENT NAME: Gustavo Cerda DATE: May 20, 2022 TIME: 1:39 [facility]09-08-2022 History of Present illness Narrative* RT David(R) - 05/20/2022 9:20 AM EDT Radiology Service Progress Note DATE OF SERVICE: May 20, 2022 TIME: 1:39 PM PATIENT IDENTITY VERIFICATION COMPLETED USING TWO (2) STANDARD IDENTIFIERS: Name and Date of confirmed by patient verbally. FALL SCREENING: Has the patient had 2 falls in the last year or 1 fall with injury or currently using an Ambulatory Assistive Device (Walker, Cane, Wheelchair, Crutches, etc.)? No PATIENT GENDER DATA: Male PATIENT RELEVANT IMPLANT DATA REVIEWED: Yes ALLERGIES: Reviewed and unchanged CONTRAST ALLERGY: NO. EXAM: CT -CONTRAST INDUCED NEPHROPATHY RISK FACTORS: Patient age > 60 years CREATININE: No results found for: CREAT, EGFROTH, EGFRAA P.O.C.T. RESULTS: POC done: Yes, See Lab Tab May 20, 2022 TREATMENT: N/A PERIPHERAL IV DATA: Ambulatory: A peripheral IV was started in the Left antecubital site with a Angio cath: 22 gauge. RADIOLOGY DEPARTMENT: CT; Exam(s) Completed: Abdomen SIGNATURE: RT Reena(R) PATIENT NAME: Gustavo Cerda DATE: May 20, 2022 TIME: 1:39 PM documented in this encounterMiddletown [facility]08-17-2022 Miscellaneous Notes* Telephone Encounter - Renetta Alex MD - 04/28/2022 5:03 PM EDT Checking on patient He states that about 40 ml/day He is scheduled for removal of CBD drainage tube later this month. I will contact him next week to check status. documented in this encounterMiddletown Hospital08-08-2022 Miscellaneous Notes* Telephone Encounter - Renetat Alex MD - 04/19/2022 12:11 PM EDT Gustavo is status post open cholecystectomy done on 02/18/2022 for acute and chronic hemorrhagic andulcerated cholecystitis and cholelithiasis He subsequently had a controlled bile drainage leak viadrain placed intraoperatively. He then underwent ERCP on March 12, but developed post-ERCP pancreatitis requiring hospital admission. He was discharged on 03/18/2022. He underwent ERCP on 04/01/2022 with findings of multiple CBD stones by Dr. Weaver who told patient that he should wait 2-3 weeks before removing drain. I spoke to patient today - to check on his status. He denies abdominal pain. He denies fevers. He states that his output is now about 50 ml/day. Will continue observation for another week. Patient acknowledges above. documented in this encounterM[facility]08-01-2022 Miscellaneous Notes* Telephone Encounter - Renetta Alex MD - 04/12/2022 10:50 AM EDT Spoke to patient to check on his status. He states that about 100 cc/day is still emanating from the catheter. He denies fevers. He denies abdominal pain. Will continue observation documented in this encounterM[facility]letown [facility]07-25-2022 Miscellaneous Notes* Telephone Encounter - Renetta Alex MD - 04/05/2022 11:08 AM EDT Patient notes intermittent pain with drain in place. Notes output is still full over a 24 hour period. Will check on patient on Tuesday. Patient can shower, avoid getting drain overlying wet - cover with towel. Patient acknowledges above. documented in this encounterM[facility]own [facility]07-22-2022 Miscellaneous Notes* Telephone Encounter - Kenzie Echols LPN - 04/02/2022 11:03 AM EDT Patient's Keisha called, patient had ERCP done 04/01/22 at [facility], Patient has complaint of mid-upper abdomen pain since procedure last less then 1 minute, pain scale 3-4, had it twice and woke him out of a sleep. States also had same pain once prior to the procedure yesterday. Fax a request to [facility] for ERCP records to be faxed and images pushed. Patient asking also about drain removal from abdomen. Please advise. documented in this encounterMiddletown Hospital07-21-2022 Hospital Discharge instructions Patient Education 04/01/2022 09:59:30 1-SDS Discharge Instructions Template (06/2018) (CUSTOM) [facility] SAME DAY SURGERY DISCHARGE INSTRUCTIONS PLEASE FOLLOW THE INSTRUCTIONS BELOW MARKED WITH AN X: __X_ Regular Diet: Start with clear liquids, then soup and crackers and gradually add other foods. ___ Drink extra fluids. ___ Special Diet Instructions: ___ ACTIVITY: _X__ Avoid stress to suture line. Since you have had an anesthetic, it would be advisable not to drive, drink alcohol, or make major decisions over the next 24 hours. You may require more rest tonight and tomorrow. ___ May resume regular activity as tolerated. ___ Restrict activity as follows: ___ ___ Walk Only ___ ___ Do not go up and down stairs. ___ Do not ride in car until ___ ___ Do not drive car. ___ Do not have sexual intercourse. ___ No heavy lifting, pushing or straining. ___ Other: ___ BATHING/SHOWERING: ___ Sponge bathe until office visit. ___ Sitting in tub of warm water may relieve discomfort. ___ May tub bathe ___ May shower ___ On day after surgery sit in tub of warm water to soak off dressing. DRESSING: ___ Keep operative area dry and clean for ___ ___ Check the operative area for signs of bleeding. Apply pressure to the bleeding site if necessary and call your physician. ___ Change dressing as necessary using sterile dressing material or bandaid. ___ Reinforce dressing as necessary. ___ Change and care for wound as follows: ___ ___ Wear bra for ___ days following breast surgery for comfort. ___ Change drip pad as needed. ___ Wear scrotal support for comfort. WATCH FOR SIGNS OF INFECTION: (Usually appears 36-48 hours after surgery) Increased temperature (101 degrees Fahrenheit or higher) Redness or swelling Increased pain Foul odor or drainage. If you have any questions, please call your doctor at the number listed on your follow up instructions. Follow all instructions given to you by your physician. Please complete and return the survey you will be receiving in the mail to help us better serve our patients. Form: 1522 ([id number]) R: 12/1904/01/2022 09:59:19 Endoscopic Retrograde Cholangiopancreatogram, Care After Endoscopic Retrograde Cholangiopancreatogram, Care After This sheet gives you information about how to care for yourself after your procedure. Your health care provider may also give you more specific instructions. If you have problems or questions, contact your health care provider. What can I expect after the procedure? After the procedure, it is common to have: Soreness in your throat. Nausea. Bloating. Dizziness. Tiredness (fatigue). Follow these instructions at home: Take yvkv-mvc-dxehsbi and prescription medicines only as told by your health care provider. Do not drive for 24 hours if you were given a medicine to help you relax (sedative) during your procedure. Have someone stay with you for 24 hours after the procedure. Return to your normal activities as told by your health care provider. Ask your health care provider what activities are safe for you. Return to eating what you normally do as soon as you feel well enough or as told by your health care provider. Keep all follow-up visits as told by your health care provider. This is important. Contact a health care provider if: You have pain in your abdomen that does not get better with medicine. You develop signs of infection, such as: ?Chills. ?Feeling unwell. Get help right away if: You have difficulty swallowing. You have worsening pain in your throat, chest, or abdomen. You vomit bright red blood or a substance that looks like coffee grounds. You have bloody or very black stools. You have a fever. You have a sudden increase in swelling (bloating) in your abdomen. Summary After the procedure, it is common to feel tired and to have some discomfort in your throat. Contact your health care provider if you have signs of infection such as chills or feeling unwell or if you have pain that does not improve with medicine. Get help right away if you have trouble swallowing, worsening pain, bloody or black vomit, bloody or black stools, a fever, or increased swelling in your abdomen. Keep all follow-up visits as told by your health care provider. This is important. This information is not intended to replace advice given to you by your health care provider. Make sure you discuss any questions you have with your health care provider. Document Released: 06/19/2014 Document Revised: 08/11/2018 Document Reviewed: 07/18/2017 [employer] Patient Education 2020 [employer]. Follow Up Care 03/30/2022 07:38:29 With:CORNELIO WEAVER MD Address: [address] [place] [address] [address] [facility], [place] [address] [phone] When: Unknown [facility] 07-21-2022 Note ORIGINAL EXAMINATION: SPOT IMAGES FROM AN ERCP04/01/2022 9:05 am Intraoperative fluoroscopy and image intensifier views of ERCP COMPARISON: None HISTORY: ORDERING SYSTEM PROVIDED HISTORY: Reason for Exam: bile duct leak, pancreatitis, FINDINGS/IMPRESSION: Fluoroscopic time: 1 minute 59 seconds Number of fluoroscopic images: 6 There is retrograde opacification of the common duct followed by instrumented manipulation and placement of a biliary stent. The pancreatic duct is not opacified. Detail is limited. Please see intraoperative notes for additional details of the procedure. Interpreted by: Darell Baum MD Preliminary Report By: Darell Baum MD Electronically signed By Darell Baum MD Dictated Date: 04/01/2022 11:13:06 AM Prelim Date: 04/01/2022 11:13:38 AM Sign Date: 04/01/2022 11:13:38 AM Ordering Provider: CORNELIO WEAVER [id number] Anesthesiology Consult note Patient: ABIODUN CERDA Age: 61 years Sex: Male : 1960 Associated Diagnoses: None Author: DAMIAN PRASAD DO Assessment Postanesthesia assessment Vitals. Mental status: at preoperative baseline. Respiratory function: respirations are non-labored, stable. Respiratory support: none. CV function: stable. Cardiovascular support: none. Pain: Post op control satisfactory. Nausea status: satisfactory. Postoperative hydration status: within normal limits. Notes: pt sufficentyl recovered from anesthesia to participate in the evaluation. No follow up careneeded. No complications post-anesthesia. Digitally Signed by DAMIAN PRASAD DO on 04/01/2022 11:09 AM [facility] [id number] Summary of episode note Discharge Instructions Thank you for allowing [facility] to assist you with your healthcare needs. The following is importantdischarge information regarding your hospital visit. What to do next Follow Up Appointments Follow Up with CORNELIO WEAVER MD When Where: [address] [facility] [address] [facility], [place] [phone] The Following Activity and Diet Have Been Ordered for You No qualifying data available. No qualifying data available. The Following Equipment Has Been Ordered for You No qualifying data available. The Following Treatments Have Been Ordered for You Discharge Labs No qualifying data available. Discharge Radiology No qualifying data available. Other Therapies No qualifying data available. Post Acute Orders No qualifying data available. Someone Will Contact You Regarding These Home Health Referrals No home referrals have been ordered for you. No one will call you. Allergies NKA Medications Please ask your primary doctor or pharmacist before taking any other medication not listed, including over the counter drugs, herbal medications, vitamins and or supplements as they may interact withyour home medications. What How Much When Instructions Last Dose Unchanged amLODIPine (amLODIPine 10 mg oral tablet) 1 tab(s) by mouth Once a day Unchanged aspirin (aspirin 81 mg oral delayed release tablet) 1 tab(s) by mouth Every day Unchanged ciprofloxacin (ciprofloxacin 500 mg oral tablet) 1 tab(s) by mouth Every 12 hours Unchanged lisinopril (lisinopril 20 mg oral tablet) 1 tab(s) by mouth Once a day Unchanged magnesium oxide (magnesium oxide 400 mg oral tablet) 1 tab(s) by mouth Every day Unchanged omega-3 polyunsaturated fatty acids (omega-3 fish oil 1000 mg oral capsule) 1 cap by mouth Once a day Please take this list to your next doctor s visit. Bring all medications you take, including over the counter medications, herbals and other supplements with you to your doctor s visit. Patients and families are reminded to discard old lists and to update any records with all medication providers or retail pharmacies. Education Materials [facility] SAME DAY SURGERY DISCHARGE INSTRUCTIONS PLEASE FOLLOW THE INSTRUCTIONS BELOW MARKED WITH AN X: __X_ Regular Diet: Start with clear liquids, then soup and crackers and gradually add other foods. ___ Drink extra fluids. ___ Special Diet Instructions: ___ ACTIVITY: _X__ Avoid stress to suture line. Since you have had an anesthetic, it would be advisable not to drive, drink alcohol, or make major decisions over the next 24 hours. You may require more rest tonight and tomorrow. ___ May resume regular activity as tolerated. ___ Restrict activity as follows: ___ ___ Walk Only ___ ___ Do not go up and down stairs. ___ Do not ride in car until ___ ___ Do not drive car. ___ Do not have sexual intercourse. ___ No heavy lifting, pushing or straining. ___ Other: ___ BATHING/SHOWERING: ___ Sponge bathe until office visit. ___ Sitting in tub of warm water may relieve discomfort. ___ May tub bathe ___ May shower ___ On day after surgery sit in tub of warm water to soak off dressing. DRESSING: ___ Keep operative area dry and clean for ___ ___ Check the operative area for signs of bleeding. Apply pressure to the bleeding site if necessary and call your physician. ___ Change dressing as necessary using sterile dressing material or bandaid. ___ Reinforce dressing as necessary. ___ Change and care for wound as follows: ___ ___ Wear bra for ___ days following breast surgery for comfort. ___ Change drip pad as needed. ___ Wear scrotal support for comfort. WATCH FOR SIGNS OF INFECTION: (Usually appears 36-48 hours after surgery) Increased temperature (101 degrees Fahrenheit or higher) Redness or swelling Increased pain Foul odor or drainage. If you have any questions, please call your doctor at the number listed on your follow up instructions. Follow all instructions given to you by your physician. Please complete and return the survey you will be receiving in the mail to help us better serve our patients. Form: 1522 ([id number]) R: 12/19 Endoscopic Retrograde Cholangiopancreatogram, Care After This sheet gives you information about how to care for yourself after your procedure. Your health care provider may also give you more specific instructions. If you have problems or questions, contact your health care provider. What can I expect after the procedure? After the procedure, it is common to have: Soreness in your throat. Nausea. Bloating. Dizziness. Tiredness (fatigue). Follow these instructions at home: Take jook-wgu-rlpjltn and prescription medicines only as told by your health care provider. Do not drive for 24 hours if you were given a medicine to help you relax (sedative) during your procedure. Have someone stay with you for 24 hours after the procedure. Return to your normal activities as told by your health care provider. Ask your health care provider what activities are safe for you. Return to eating what you normally do as soon as you feel well enough or as told by your health care provider. Keep all follow-up visits as told by your health care provider. This is important. Contact a health care provider if: You have pain in your abdomen that does not get better with medicine. You develop signs of infection, such as: ? Chills. ? Feeling unwell. Get help right away if: You have difficulty swallowing. You have worsening pain in your throat, chest, or abdomen. You vomit bright red blood or a substance that looks like coffee grounds. You have bloody or very black stools. You have a fever. You have a sudden increase in swelling (bloating) in your abdomen. Summary After the procedure, it is common to feel tired and to have some discomfort in your throat. Contact your health care provider if you have signs of infection such as chills or feeling unwell or if you have pain that does not improve with medicine. Get help right away if you have trouble swallowing, worsening pain, bloody or black vomit, bloody or black stools, a fever, or increased swelling in your abdomen. Keep all follow-up visits as told by your health care provider. This is important. This information is not intended to replace advice given to you by your health care provider. Make sure you discuss any questions you have with your health care provider. Document Released: 06/19/2014 Document Revised: 08/11/2018 Document Reviewed: 07/18/2017 [employer] Patient Education 2020 [employer] Additional Information VACCINATE! IT SAVES LIVES! Members of the community who have not yet received the COVID-19 vaccine and would like to receive it can visit one of [facility] vaccine clinics. There are many vaccine clinic locations within the [facility]. For locations and available times, please visit [email or web address]/. It is important to note that some COVID mobile vaccine clinics are held outdoors and may be canceled in rainy or stormy conditions. To learn more about pediatric vaccinations (ages 5-11), we invite you to visit the [facility] webpage. [email or web address]/[email or web address]-Qmdfdkhwcm-Ybodr-Bbq stions.htmlTo learn more about the COVID-19 vaccine, we invite you to visit the [facility] website for a list of frequently asked questions. [email or web address]-[email or web address]-Wjoehfx-Ikpnytlwbn _[email or web address]-Questions.pdf [place] [employer] Patient Portal Access Instructions: Stay connected with your healthcare team and access your personal medical information anytime with the [facility] Patient Portal.If you would like a full copy of your medical records, please contact the [facility] Medical Records Department, Tuesday through Tuesday between 8a.m. and 4:30p.m. Please follow the directions below to access the portal: 1.Access the email account you provided upon registration to the hospital.2.Look for an invitation email from [facility].3.Open the email and access the invitation link: Accept Invitation to [facility]4.Fill in the required montero to create your account. Sign into www.Bunkspeed with your username and password that you created in the above steps to stay up to date. You can then view a summary of results, a summary of your visits, and the ability to download your summaries to your computer or send the information securely to a physician. Remember that your healthcare information is confidential, so carefully consider who you will allow to register on the [facility] Patient Portal for access to your information. You can also access the [facility] Patient Portal on the [employer] osbaldo. Simply click on Health Records under Like.fmta and then click on the [employer] logo. HOW TO SAFELY DISPOSE OF PRESCRIPTION MEDICATIONS Please use one of the following methods to safely dispose of your unused medications. 1.Use a drug disposal kit: the drug disposal pouch allows you to safely discard your old and unuseddrugs. Ask your nurse to give you one when you are discharged.2.Visit a local take-back location: Many local pharmacies and police departments have programs that collect old and unwanted prescriptiondrugs. Call your local pharmacy or go to http://[employer].Sleep Number/7C0Au8r to find one close to you.3.Make use of household items: Use cat litter or old coffee grounds to dispose medications if other options arenot available. Mix your drugs with these household products, seal them in an airtight container andthrow it into the garbage. Call [facility]: [phone] to be sure your drugs can be disposed of in this way. Some medicines may require a different approach.4.Never flush your medications down the toilet. IF YOU HAVE BEEN PRESCRIBED AN OPIOID FOR PAIN If you have been prescribed an opioid (such as hydrocodone, oxycodone or morphine), it is critical to understand the possible side effects and risks of opioid pain medications. Even when taken as directed, opioids can have several side effects including: Tolerance, meaning you might need to take more of a medication for the same pain relief. Nausea, vomiting and/or constipation. Sleepiness, dizziness, dry mouth, confusion, depression or itching. Physical dependence, meaning you have withdrawal symptoms when a medication is stopped, can develop within a few days. KNOW YOUR RESPONSIBILITIES It is important to know exactly how much and how often to take the opioid pain medications you are prescribed. Never take opioids in higher amounts or more often than prescribed. Do not combine opioids with alcohol or other drugs that cause drowsiness, such as benzodiazepines, also known as benzos, including diazepam and alprazolam, muscle relaxants or sleep aids. Never sell or share prescription opioids. This is illegal. Store opioids in a secure place and out of reach of others (including children, family, friends and visitors). The last page of this document has been signed and retained as a CHART COPY. Signatures Patient Education Materials 1-SDS Discharge Instructions Template (06/2018) (CUSTOM) Endoscopic Retrograde Cholangiopancreatogram, Care After Medication Leaflets My discharge plan and instructions have been reviewed and explained to me and I,ABIODUN CERDA understand my current condition and have read and understand these discharge instructions. I have received a written copy of the plan/instructions. If I have questions, I am aware that I should contact my d octor. 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: Date/Time: Relationship to Patient: Witness Name/Signature: [id number] Note ORIGINAL EXAMINATION: SPOT IMAGES FROM AN ERCP04/01/2022 9:05 am Intraoperative fluoroscopy and image intensifier views of ERCP COMPARISON: None HISTORY: ORDERING SYSTEM PROVIDED HISTORY: Reason for Exam: bile duct leak, pancreatitis, FINDINGS/IMPRESSION: Fluoroscopic time: 1 minute 59 seconds Number of fluoroscopic images: 6 There is retrograde opacification of the common duct followed by instrumented manipulation and placement of a biliary stent. The pancreatic duct is not opacified. Detail is limited. Please see intraoperative notes for additional details of the procedure. Interpreted by: Darell Baum MD Preliminary Report By: Darell Baum MD Electronically signed By Darell Baum MD Dictated Date: 04/01/2022 11:13:06 AM Prelim Date: 04/01/2022 11:13:38 AM Sign Date: 04/01/2022 11:13:38 AM Ordering Provider: [facility]07-21-2022 Anesthesiology Consult note Patient: ABIODUN CERDA Age: 61 years Sex: Male : 1960 Associated Diagnoses: None Author: JESUSITA DORANTES MD Preoperative Information NPO >8 hours Anesthesia history Patient's history: negative. History of Present Illness 61yoM with PMH Hypertension controlled with amlodipine and lisinopril, horseshoe kidney, Conner, pancreatitis, sleep apnea, urinary tract infection, bile duct leak, and abdominal pain presenting for ERCP. Denies CP, SOB, fever, recent cough, cold or congestion; >4 METS, no GERD sx. Health Status Allergies: Allergic Reactions (Selected) NKA, Allergies (1) ActiveReaction NKANone Documented Current medications: (Selected) Inpatient Medications Ordered LR 1,000 mL: 20 mL/hr, Intravenous, Stop: 04/01/22 22:59:00 EDT Documented Medications Documented amLODIPine 10 mg oral tablet: 10 mg, 1 tab(s), Oral, qDay aspirin 81 mg oral delayed release tablet: 81 mg, 1 tab(s), Oral, Daily ciprofloxacin 500 mg oral tablet: 500 mg, 1 tab(s), Oral, q12h lisinopril 20 mg oral tablet: 20 mg, 1 tab(s), Oral, qDay magnesium oxide 400 mg oral tablet: 400 mg, 1 tab(s), Oral, Daily omega-3 fish oil 1000 mg oral capsule: 1,000 mg, 1 cap(s), Oral, qDay, 0 Refill(s), Medications (1) Active Scheduled: (0) Continuous: (1) Lactated Ringers 1,000 mL 1,000 mL, Intravenous, 20 mL/hr PRN: (0) Problem list: Medical Bile duct leak / SNOMED CT 153133084 / Confirmed High blood pressure / SNOMED CT 55438466 / Confirmed Pancreatitis / SNOMED CT 881716967 / Confirmed Sleep apnea / SNOMED CT 954175388 / Confirmed, Active Problems (12) Abdominal pain Apnea Bile duct leak DVT of lower limb, acute Glasses High blood pressure Horseshoe kidney CONNER (nonalcoholic steatohepatitis) Pancreatitis Sleep apnea Tobacco use Urinary tract infection Histories Past Medical History: No active or resolved past medical history items have been selected or recorded. Procedure history: Cholecystectomy (52949926) in 2021 at 61 Years. ERCP ([id number]) in 2021 at 61 Years. Liver (50509145) in 1990 at 30 Years. Comments: 03/31/2022 14:35 Arianne Hollins RN liver laceration Trauma (9164003272) in 1967 at 7 Years. Comments: 03/31/2022 14:34 Arianne Hollins RN as a child fell in [facility]- multiple surgeries Rotator cuff ([id number]). Comments: 03/31/2022 14:36 Arianne Hollins RN bilat Meniscus ([id number]). Comments: 03/31/2022 14:36 EDT - Arianne Singleton RN knee right knee Tonsillectomy and adenoidectomy ([id number]). Social History Social & Psychosocial Habits Alcohol 03/31/2022 Use: Never Substance Abuse 03/31/2022 Use: Never Tobacco 03/31/2022 Tobacco Use: Never (less than 100 in l, Smoker, current status un Home/Environment 03/31/2022 Domestic Concerns Denies Marital Status of Patient if Patient Independent Adult: Nutrition/Health 03/31/2022 Type of diet: Regular Appetite Good Eating Difficulties None . Physical Examination Vital Signs(last 24 hrs) Last Charted Temp Oral36.7 DegC (MAR 31 11:19) Measurements from flowsheet : Measurements 03/31/2022 11:19 EDT Height 176 cm Admission Weight 154.1 kg Weight Method Actual Pioneer Body Weight 71.37 kg General: Alert and oriented, No acute distress. Airway: Normal mouth, No damage to dentition, Normal neck range of motion. Mallampati classification: II (soft palate, fauces, uvula visible). Dentition Evaluation: Intact. Neck: Supple. Respiratory: Lungs are clear to auscultation, Respirations are non-labored. Cardiovascular: Normal rate, Regular rhythm. Heart Sounds: Normal. Neurologic: Alert, Oriented. Review / Management Results review: No qualifying data available . Documentation reviewed: Current records. Assessment and Plan [place] [employer] Anesthesiologists (ASA) physical status classification: Class III. Anesthetic Preoperative Plan Premedication: intravenous. Anesthetic technique: General. Induction: intravenously. Maintenance airway: Oral endotracheal tube. Postoperative pain management: Per surgeon. Risks discussed: nausea, vomiting, headache, sore throat, dental injury, hypotension, allergic reaction, serious complications. Informed consent: signed by patient. Digitally Signed by JESUSITA DORANTES MD on 04/01/2022 07:47 AM [id number] Miscellaneous Notes* Telephone Encounter - Yong Land RN - 03/29/2022 10:08 AM EDT Images from the original note were not included. Renetta Alex MD [facility] General Surgery Pool Please fax a referral to the following number: [facility] Request for ERCP with covered stent attention Cielo Need: demographics sheet Report of ERCP, operative report, CT scan, labs, H&P from [facility]. Thank you Above medical records faxed to [facility], Attn: Cielo at [phone]. Fax conformation sheet received. Yong Land RN documented [facility]07-[facility]22 Miscellaneous Notes* Telephone Encounter - Renetta Alex MD - 03/29/2022 9:08 AM EDT Spoke to patient. He still has increased output via bile drain. He will require another ERCP with covered stent. I will place calls for referral I have explained the above to the patient. He acknowledges above. documented in this encounterM[facility]07-12-2022 Miscellaneous Notes* Telephone Encounter - Renetta Alex MD - 03/23/2022 1:06 PM EDT Spoke to patient regarding plan with controlled bile leak, s/p ERCP with stent DIscussed with hepato/biliary surgeon - will plan continued observation for another week. If no improvement, will consider repeat ERCP with placement of covered stent. I have told patient that this is not available at [facility], thus he may have to go to [facility] for this procedure. I will call patient on Tuesday to check on his status. Patient acknowledges above. documented in this encounterMidd[facility]own [facility]07-11-2022 NoteHNO ID: [id number] Author: Renetta Alex MD Service: ? Author Type: Physician Type: Progress Notes Filed: 03/22/2022 7:07 PM Note Text: FOLLOW UP VISIT NAME: Gustavo [facility] NO.: [id number] DATE OF SERVICE: 03/22/2022 : 1960 Gustavo is status post ERCP done on March 12 and had post-ERCP pancreatitis requiring hospital admission. He was discharged on 03/18/2022. He underwent ERCP for controlled bile leak after open cholecystectomy on 02/18/2022. He denies abdominal pain. He notes bile colored output - 75 ml/day - he has noted. Will need to wait until output is about 25 cc/day. Patient counseled to follow up at that point. PHYSICAL EXAMINATION: VITALS: Blood pressure 148/78, pulse 111, temperature 36.4 ?C (97.6 ?F), height 177.8 cm (5' 10), weight (!) 159.7 kg (352 lb), SpO2 96 %. On examination, abdomen is soft, obese, and benign. KENNETH site is clean and dry. Incision sites are well healed. Assessment IMPRESSION: controlled bile leak - will await decreased output before removing drained PLAN: Patient to follow up with me when output is about 25 ml/day, he has been educated as to this. Diagnoses: (Z90.49) Status post cholecystectomy (primary encounter diagnosis) I have confirmed and edited as necessary, the PFSH and ROS obtained by others. Renetta Alex, [facility]07-11-2022 History of Present illness Narrative* Renetta Alex MD - 03/22/2022 4:37 PM EDT FOLLOW UP VISIT NAME: Gustavo [facility] NO.: [id number] DATE OF SERVICE: 03/22/2022 : 1960 Gustavo is status post ERCP done on March 12 and had post-ERCP pancreatitis requiring hospital admission. He was discharged on 03/18/2022. He underwent ERCP for controlled bile leak after open cholecystectomy on 02/18/2022. He denies abdominal pain. He notes bile colored output - 75 ml/day - he has noted. Will need to wait until output is about 25 cc/day. Patient counseled to follow up at that point. PHYSICAL EXAMINATION: VITALS: Blood pressure 148/78, pulse 111, temperature 36.4 C (97.6 F), height 177.8 cm (5' 10), weight (!) 159.7 kg (352 lb), SpO2 96 %. On examination, abdomen is soft, obese, and benign. KENNETH site is clean and dry. Incision sites are well healed. Assessment IMPRESSION: controlled bile leak - will await decreased output before removing drained PLAN: Patient to follow up with me when output is about 25 ml/day, he has been educated as to this. Diagnoses: (Z90.49) Status post cholecystectomy (primary encounter diagnosis) I have confirmed and edited as necessary, the PFSH and ROS obtained by others. Renetta Alex MD documented in this encounterMiddletown Hospital06-29-2022 NoteHNO ID: [id number] Author: Renetta Alex MD Service: ? Author Type: Physician Type: Progress Notes Filed: 03/10/2022 7:18 PM Note Text: FOLLOW UP VISIT NAME: Gustavo [facility] NO.: [id number] DATE OF SERVICE: 03/10/2022 : 1960 REFERRING PHYSICIAN: No primary care provider on file. Gustavo is status post open cholecystectomy. He presents with a controlled bile leak. He is scheduled for ERCP on Tuesday. VITALS: Blood pressure 144/72, pulse 87, temperature 36.7 ?C (98 ?F), height 177.8 cm (5' 10), weight (!) 158.8 kg (350 lb), SpO2 98 %. On examination, abdomen is soft and benign. Wounds are well healed without evidence of infection. KENNETH output has light colored bile. Assessment IMPRESSION: controlled bile leak after cholecystectomy PLAN: Patient to follow up with me after the ERCP, so that KENNETH drain can be discontinued. Diagnoses: (Z90.49) Status post cholecystectomy (primary encounter diagnosis) I have confirmed and edited as necessary, the PFSH and ROS obtained by others. Renetta Alex [facility]06-29-2022 History of Present illness Narrative* Renetta Alex MD - 03/10/2022 7:15 PM EDT FOLLOW UP VISIT NAME: Gustavo Cerda [facility] NO.: [id number] DATE OF SERVICE: 03/10/2022 : 1960 REFERRING PHYSICIAN: No primary care provider on file. Gustavo is status post open cholecystectomy. He presents with a controlled bile leak. He is scheduled for ERCP on Tuesday. VITALS: Blood pressure 144/72, pulse 87, temperature 36.7 C (98 F), height 177.8 cm (5' 10), weight (!) 158.8 kg (350 lb), SpO2 98 %. On examination, abdomen is soft and benign. Wounds are well healed without evidence of infection. KENNETH output has light colored bile. Assessment IMPRESSION: controlled bile leak after cholecystectomy PLAN: Patient to follow up with me after the ERCP, so that KENNETH drain can be discontinued. Diagnoses: (Z90.49) Status post cholecystectomy (primary encounter diagnosis) I have confirmed and edited as necessary, the PFSH and ROS obtained by others. Renetta Alex MD documented in this encounterMiddletown Hospital06-29-2022 Nurse Note* Kenzie Echols LPN - 03/10/2022 3:10 PM EDT The abdomen was assessed and lamont were removed as ordered. Dressing was applied. (steri strips) Patient instructed on wound care and verbalized understanding. Keznie Echols LPN documented in this encounterMiddletown Hospital06-23-2022 NoteHNO ID: [id number] Author: RT Qamar(R) Service: Nuclear Medicine Author Type: Technologist Type: Progress Notes Filed: 03/04/2022 3:01 PM Note Text: RADIOLOGY SERVICE PROGRESS NOTE SERVICE DATE: 03/04/2022 SERVICE TIME: 14:15 PM PATIENT IDENTITY VERIFICATION COMPLETED USING TWO (2) STANDARD IDENTIFIERS: Name and Date of confirmed by patient verbally FALL SCREENING: Has the patient had 2 falls in the last year or 1 fall with injury or currently using an Ambulatory Assistive Device (Walker, Cane, Wheelchair, Crutches, etc.)? No PATIENT GENDER DATA: .male ALLERGIES: Reviewed and unchanged MEDICATIONS REVIEWED: No PATIENT RELEVANT IMPLANT DATA REVIEWED: Not Applicable CREATININE: No results found for: CREAT, EGFROTH, EGFRAA P.O.C.T. RESULTS: N/A March 04, [address] PERFORMED: No IV SITE: Ambulatory: A peripheral IV was started in the Right antecubital site with a Angio cath: 24 gauge. POST EXAM PIV STATUS: Discontinued PROCEDURE TYPE: NM INJECT: Hepatobiliary Scan. 4.9 mCi Tc99m CHOLETEC. No other medications given.. ADMINISTRATION TIME: 14:22 PATIENT DISCHARGED TO: Ambulatory patient, left NM department area. A Diagnostic radioactive procedure has taken place, with no further precautions necessary other than routine body substance precautions. More information regarding radiation safety can be found using this link: [email or web address]%[email or web address] SIGNATURE: REJI Foote) PATIENT NAME: Gustavo Cerda DATE: March 04, 2022 TIME: 3:00 PM PAGER/CONTACT #:[facility]06-23-2022 History of Present illness Narrative* REJI Foote) - 03/04/2022 2:00 PM EDT RADIOLOGY SERVICE PROGRESS NOTE SERVICE DATE: 03/04/2022 SERVICE TIME: 14:15 PM PATIENT IDENTITY VERIFICATION COMPLETED USING TWO (2) STANDARD IDENTIFIERS: Name and Date of confirmed by patient verbally FALL SCREENING: Has the patient had 2 falls in the last year or 1 fall with injury or currently using an Ambulatory Assistive Device (Walker, Cane, Wheelchair, Crutches, etc.)? No PATIENT GENDER DATA: .male ALLERGIES: Reviewed and unchanged MEDICATIONS REVIEWED: No PATIENT RELEVANT IMPLANT DATA REVIEWED: Not Applicable CREATININE: No results found for: CREAT, EGFROTH, EGFRAA P.O.C.T. RESULTS: N/A March 04, [address] PERFORMED: No IV SITE: Ambulatory: A peripheral IV was started in the Right antecubital site with a Angio cath: 24 gauge. POST EXAM PIV STATUS: Discontinued PROCEDURE TYPE: NM INJECT: Hepatobiliary Scan. 4.9 mCi Tc99m CHOLETEC. No other medications given.. ADMINISTRATION TIME: 14:22 PATIENT DISCHARGED TO: Ambulatory patient, left NM department area. A Diagnostic radioactive procedure has taken place, with no further precautions necessary other than routine body substance precautions. More information regarding radiation safety can be found usingthis link: [email or web address] 20Diagnostic%20Nuclear%20Medicine%20Procedures.pdf SIGNATURE: REJI Foote) PATIENT NAME: Gustavo Cerda DATE: March 04, 2022 TIME: 3:00 PM PAGER/CONTACT #: documented in this encounterMiddletown Hospital06-23-2022 Miscellaneous Notes* Telephone Encounter - Yong Land RN - 03/04/2022 10:21 AM EDT Office visit note and request for consultation faxed to Dr. Leung's office. Fax conformation sheet received. Called Gustavo ([phone]) and advised that we had sent the requested information to Dr. Leung's office and they could call and schedule an appointment. Yong Land RN * Telephone Encounter - Elizabeth Manriquez - 03/03/2022 4:01 PM EDT Patients ,Stephanie called And stated that 's office needs a referral From in order to schedule an appointment. Please Call Stephanie when referral is completed. documented in this encounterMiddletown Hospital06-22-2022 Nurse Note* Kenzie Echols LPN - 03/03/2022 2:05 PM EDT The abdomen was assessed by Dr Alex and every other lamont were removed as ordered. Skin prep and steri strips applied. Patient instructed on wound care and verbalized understanding. Kenzie Echols LPN documented in this encounterMiddletown Hospital06-22-2022 Miscellaneous Notes* Telephone Encounter - Yong Land RN - 03/03/2022 12:47 PM EDT Images from the original note were not included. Renetta Alex MD You 19 minutes ago (12:27 PM) He can then come in tomorrow. Also use Benzoin, thanks Renetta Alex MD You 19 minutes ago (12:27 PM) These are just skin lamont - he could set up a nursing visit - just remove the skin lamont and placed steristrips instead, though at the right subcostal incision, I would remove just every other skin staple since the suture line is under a bit of tension - patient is obese. Spoke with patient, he will come in the office today, 03/03/22 for a nurse visit. Yong Land RN * Telephone Encounter - Yong Land RN - 03/03/2022 10:04 AM EDT Gustavo Brooks is scheduled for a HIDA scan on 03/04/22 and a follow-up visit with you on 03/08/22 to reviewthe HIDA scan results. Gustavo is requesting an office visit for suture removal, prior to his f/u visit with you. I spoke with Mrs. Cerda, she advised that the sutures that are bothering him are along the incision line, not the suture that is in the drain. Offered an appointment for Tuesday, advised that they cannot come in on Tuesday. Please advise. Yong Land RN * Telephone Encounter - Sallie Mars - 03/03/2022 9:36 AM EDT Pts called wondering if pt can get stitches removed today or tomorrow. States they are bothering him. Dr. Alex did not have any openings. Please let him know if he should wait until appt this coming week with Dr. Alex. documented in this encounterMiddletown Hospital06-16-2022 NoteHNO ID: [id number] Author: Renetta Alex MD Service: ? Author Type: Physician Type: Progress Notes Filed: 02/26/2022 12:33 PM Note Text: FOLLOW UP VISIT NAME: Gustavo Cerda [facility] NO.: [id number] DATE OF SERVICE: 02/24/2022 : 1960 REFERRING PHYSICIAN: No primary care provider on file. Gustavo is status post open cholecystectomy done on 02/18/2022. He presents with intraabdominal drains x 2. He had severe cholecystitis with adhesions due to his previous exploratory laparotomy for liver trauma and he is supermorbidly obese. Pathology reveals - acute and chronic hemorrhagic and ulcerated cholecystitis and cholelithiasis. Reactive epithelial changes Because of the technically difficulty surgery - partial cholecystectomy was done and area of triangle of Calot could not be identified due to the inflammation/scar tissue/adiposity and cystic duct left open - drain placed in this vicinity He denies fevers VITALS: Blood pressure 151/87, pulse 78, temperature 36.9 ?C (98.4 ?F), height 177.8 cm (5' 10), weight (!) 158.8 kg (350 lb). On examination, abdomen is soft and obese. Incision is clean and dry. KENNETH output - superior drain is serosanguinous with minimal output. - removed without difficulty. Inferior drain - about 200 ml output per day according to patient and appears bile-colored. Assessment IMPRESSION: status post open cholecystectomy - technically difficult due to patient's previous surgery and body habitus, possible bile leak PLAN: Will order HIDA scan to rule out bile leak. If bile leak is detected - patient will require ERCP for stent placement in common bile duct to divert bile leak and allow area to heal over. This was told to patient and his . Patient to follow up after HIDA scan to discuss possible further treatment. Diagnoses: (K80.20) Calculus of gallbladder without cholecystitis without obstruction Return to Clinic: The patient is instructed to follow-up with me as above. Renetta Alex [facility]06-16-2022 History of Present illness Narrative* Renetta Alex MD - 02/25/2022 10:13 AM EDT FOLLOW UP VISIT NAME: Gustavo Cerda [facility] NO.: [id number] DATE OF SERVICE: 02/24/2022 : 1960 REFERRING PHYSICIAN: No primary care provider on file. Gustavo is status post open cholecystectomy done on 02/18/2022. He presents with intraabdominal drains x 2. He had severe cholecystitis with adhesions due to his previous exploratory laparotomy for liver trauma and he is supermorbidly obese. Pathology reveals - acute and chronic hemorrhagic and ulcerated cholecystitis and cholelithiasis. Reactive epithelial changes Because of the technically difficulty surgery - partial cholecystectomy was done and area of triangle of Calot could not be identified due to the inflammation/scar tissue/adiposity and cystic duct left open - drain placed in this vicinity He denies fevers VITALS: Blood pressure 151/87, pulse 78, temperature 36.9 C (98.4 F), height 177.8 cm (5' 10), weight (!) 158.8 kg (350 lb). On examination, abdomen is soft and obese. Incision is clean and dry. KENNETH output - superior drain is serosanguinous with minimal output. - removed without difficulty. Inferior drain - about 200 ml output per day according to patient and appears bile-colored. Assessment IMPRESSION: status post open cholecystectomy - technically difficult due to patient's previous surgery and body habitus, possible bile leak PLAN: Will order HIDA scan to rule out bile leak. If bile leak is detected - patient will require ERCP for stent placement in common bile duct to divert bile leak and allow area to heal over. This was told to patient and his . Patient to follow up after HIDA scan to discuss possible further treatment. Diagnoses: (K80.20) Calculus of gallbladder without cholecystitis without obstruction Return to Clinic: The patient is instructed to follow-up with me as above. Renetta Alex MD [facility] Future Appointments [facility]* Diagnosis Onset Date Resolution Status Acute cholecystitis acute [facility] Work Phone: evaluation note* Diagnosis Onset Date Resolution Status Acute cholecystitis acute Status post cholecystectomy acute [facility] Work Phone: Evaluation note* Diagnosis Status post cholecystectomy- Primary Other acquired absence of organ Bile leak Unspecified disorder of biliary tract Morbid obesity (HCC) Morbid obesity [facility]* Diagnosis Status post cholecystectomy- Primary Other acquired absence of organ documented in this encounter [facility]* Diagnosis Status post cholecystectomy Other acquired absence of organ documented in this encounter [facility]* Diagnosis Status post cholecystectomy- Primary Other acquired absence of organ documented in this encounter [facility] note* Diagnosis Onset Date Resolution Status Acute cholecystitis acute Status post cholecystectomy acute Bile leak, postoperative acu te Bile leak noneactive [facility] Work Phone: Evaluation note* Diagnosis Onset Date Resolution Status Acute cholecystitis acute Status post cholecystectomy acute Bile leak, postoperative acu te Bile leak noneactive Acute pancreatitis acute [facility] Work Phone: Evaluation note* Diagnosis Onset Date Resolution Status Acute cholecystitis acute Status post cholecystectomy acute Bile leak, postoperative acu te Bile leak noneactive Acute pancreatitis acute Bile leak, postoperative acu te [facility] Work Phone: Evaluation note* Diagnosis Onset Date Resolution Status Acute cholecystitis acute Status post cholecystectomy acute Bile leak, postoperative acu te Bile leak noneactive Bile leak, postoperative acu te Acute pancreatitis resolved [facility] Work Phone: Evaluation note* Diagnosis Aftercare- Primary Unspecified aftercare Abnormal biliary HIDA scan Nonspecific abnormal results of other specified function study [facility] Diagnosis Onset Date Resolution Status Morbid obesity acute Obstructive Sleep Apnea-Hypopnea Syndrome noneactive [facility] Work Phone: Evaluation noteNo assessment information available [facility] Work Phone: Evaluation note* Diagnosis Onset Date Resolution Status Morbid obesity chronic ABDULKADIR (obstructive sleep apnea) chronic [facility] Work Phone: Hospital course Narrative No data available for this section [facility] Hospital Discharge instructions No data available for this section [facility] Hospital Discharge instructions Additional Instructions Please follow-up with your general surgeon as previously directed and take your home medications as previously directed as well. Please return to the ER should you have any [facility]: Hospital Discharge instructions* Activity:activity as tolerated. May shower. May not return to school/work Instructions:. May not drive while taking narcotics. No pushing, pulling, or lifting objects greater than 10 pounds. * Wound Care 1:Wound Site: abdomenWound Type: surgical incisionCleanse With: soap and waterCover With: no dressing, leave open to airInstructions: no lotions, creams, or tub soaksOther Instructions: You have lamont along your incision. These will come out in 1-2 weeks. This incision may get wet, patdry and cover as needed to protect your clothing, otherwise you may leave this incision open to air. * Home Care Face to Face Certification:Home Care Services Needed: yesSkilled Disciplines Ordered: PTFace to Face Encounter Completed: yesDate of Encounter: [id number] Necessity for Homecare (based on clinical findings): Physical therapy needed to restore pt to previous level of functioning s/p cholecystectomyHomebound Status: homeboundHomebound Due to: Pt is temporarily homebound s/p cholecystectomyFace to Face Completed and Home Care Orders Reviewed: I certify that this patient is under my care. I have reviewed the information included in the face to face and certify that the home care services ordered are medically necessary for this patient. * Home Care Skilled Service:Home Care Skilled Service: Rehab (PT/OT/SP eval and treat)Rehab: [facility] Visit: day after discharge * Follow Up Appointment 1:Physician/Dept/Service: Dr Jerez for Referral: post-op appointmentScheduled Date/Time: 08-Mar-2023 10:30Location: [facility] [address] [facility] [address]Phone Number: [phone] [facility] LATOYA HERRERA MD: SIGN, VERIFY Event Display: EKG [ED [facility]] - CV Authored Date: [facility] Progress note No data available for this section [facility] Reason for referral (narrative)* Diagnostic Procedure Only (Routine) - Open Specialty Diagnoses / Procedures Referred By Contact Referred To Contact MOLECULAR & FUNCTIONAL IMAGING Diagnoses Status post cholecystectomy Procedures NM HEPATOBILIARY WO RX HEPATOBILIARY SYST IMAGING INCLUDING GALLBLADDER Renetta Alex MD [address] [place] [address] Molecular & Functional Imaging [address] [place] [address] Referral ID Status Reason Start Date Expiration Date V isits Requested Visits Authorized [id number] Open Auto-Generate d Referral 02/24/2022 03/26/2023 1 1 [facility] for referral (narrative)* Diagnostic Procedure Only (Routine) - Waiting for Online Response Specialty Diagnoses / Procedures Referred By Contact Referred To Contact MOLECULAR & FUNCTIONAL IMAGING Diagnoses Status post cholecystectomy Procedures NM HEPATOBILIARY WO RX HEPATOBILIARY SYST IMAGING INCLUDING GALLBLADDER Renetta Alex MD [address] [place] [address] Molecular & Functional Imaging [address] [place] [address] Referral ID Status Reason Start Date Expiration Date Visits Requested Visits Authorized [id number] Waiting for Online Response Auto-Genera francheska Referral Patient Cleared - Admin/Chair man/Directo r advise to proceed 02/24/2022 03/26/2023 1 1 [facility]No reason for referral information availableWPark[facility] Work Phone: Reason for visit Narrative* Diagnostic Procedure Only (Routine) - Closed Specialty Diagnoses / Procedures Referred By Contac t Referred To Contact Radiology / RADIO CT SCAN [facility] Diagnoses Perforation of gallbladder Biliary acute pancreatitis with infected necrosis CT ABD W IV AND ORAL, DX ,NHI TO FAX ORDER Procedures CT ABDOMEN W/CONTRAST CT WWO ABD1 400 Cornelio Weaver MD [address] [place] [address] [facility] [address] [place] [address] Referral ID Status Reason Start Date Expiration Date Visits Re quested Visits Authorized [id number] Closed 05/20/2022 09/11/2022 1 1 [facility] Summary Purpose Family History No Family History Records Found Relationship Condition Age at Onset Recorded Date/T cielo mother Asthma Unknown Diabetes mellitus Unknown father Malignant neoplasm of colon Unknown sister Malignant neoplasm Unknown brother Diabetes mellitus Unknown Unknown Family Member Name Dates Details Family history of liver dise ase: Sister(V18.59, Z83.79) Status:Active Family history of malignant neoplasm of colon: Father(V16.0, Z80.0) Status:Active Unknown Family Member Name Dates Details Family history of liver dise ase: Sister(V18.59, Z83.79) Status:Active Family history of malignant neoplasm of colon: Father(V16.0, Z80.0) Status:Active Unknown Family Member Name Dates Details Family history of liver dise ase: Sister(V18.59, Z83.79) Status:Active Family history of malignant neoplasm of colon: Father(V16.0, Z80.0) Status:Active Unknown Family Member Name Dates Details Family history of liver dise ase: Sister(V18.59, Z83.79) Status:Active Family history of malignant neoplasm of colon: Father(V16.0, Z80.0) Status:Active Unknown Family Member Name Dates Details Family history of liver dise ase: Sister(V18.59, Z83.79) Status:Active Family history of malignant neoplasm of colon: Father(V16.0, Z80.0) Status:Active Advance Directives No Advanced Directives Records Found Advance Directive Response Recorded Date/ Time Advance Directives Yes August 20, 2016 10:06am Living Will No February 17, 2022 7 :45am Power of Semiautomatic Taper Operator No February 17, 2022 7:45am Advance Directive Response Recorded Date/ Time Advance Directives Yes August 20, 2016 10:06am Living Will Yes February 17, 2022 2 :21pm Power of Semiautomatic Taper Operator Yes February 17, 2022 2:21pm Advance Directive Response Recorded Date/ Time Name of Medical Power of Semiautomatic Taper Operator Keisha February 17, 2022 2:21pm Advance Directives Yes August 20, 2016 10:06am Living Will Yes February 17, 2022 2 :21pm Power of Semiautomatic Taper Operator Yes February 17, 2022 2:21pm Advance Directive Response Recorded Date/ Time Name of Medical Power of Semiautomatic Taper Operator Keisha February 17, 2022 2:21pm Name of Medical Power of Semiautomatic Taper Operator March 09, 2022 9:28am Advance Directives Yes August 20, 2016 10:06am Living Will Yes March 09, 2022 9:28am Power of Semiautomatic Taper Operator Yes March 09 9:28am Advance Directive Response Recorded Date/ Time Name of Medical Power of Semiautomatic Taper Operator Keisha February 17, 2022 2:21pm Name of Medical Power of Semiautomatic Taper Operator March 09, 2022 9:28am Advance Directives Yes August 20, 2016 10:06am Living Will No March 12, 2022 8 :30pm Power of Semiautomatic Taper Operator No March 12, 2022 8:30pm Advance Directive Response Recorded Date/ Time Name of Medical Power of Semiautomatic Taper Operator Keisha February 17, 2022 2:21pm Name of Medical Power of Semiautomatic Taper Operator March 09, 2022 9:28am Name of Medical Power of Semiautomatic Taper Operator Liliane () March 13, 2022 1:48am Advance Directives Yes August 20, 2016 10:06am Living Will Yes March 13, 2022 1 :48am Power of Semiautomatic Taper Operator Yes March 13, 2022 1:48am Advance Directive Response Recorded Date/ Time Name of Medical Power of Semiautomatic Taper Operator Keisha February 17, 2022 2:21pm Name of Medical Power of Semiautomatic Taper Operator March 09, 2022 9:28am Name of Medical Power of Semiautomatic Taper Operator Liliane () March 13, 2022 1:48am Name of Medical Power of Semiautomatic Taper Operator kathy obi er April 25, 2022 4:26pm Advance Directives Yes August 20, 2016 10:06am Living Will Yes April 25 4:26pm Power of Semiautomatic Taper Operator Yes April 25 4:26pm Advance Directive Response Recorded Date/ Time Name of Medical Power of Semiautomatic Taper Operator Keisha February 17, 2022 2:21pm Name of Medical Power of Semiautomatic Taper Operator March 09, 2022 9:28am Name of Medical Power of Semiautomatic Taper Operator Liliane () March 13, 2022 1:48am Name of Medical Power of Semiautomatic Taper Operator kathy crocker er April 25, 2022 4:26pm Name of Medical Power of Semiautomatic Taper Operator LILIANEFLORA CROCKERE R- June 05, 2022 12:59am Advance Directives Yes August 20, 2016 10:06am Living Will Yes June 05, 2022 12:59am Power of Semiautomatic Taper Operator Yes May 12:59am Advance Directive Response Recorded Date/ Time Name of Medical Power of Semiautomatic Taper Operator kathy obi er April 25, 2022 3:26pm Name of Medical Power of Semiautomatic Taper Operator LILIANE CROCKERE R- June 04, 2022 11:59pm Advance Directives Yes August 20, 2016 9:06am Living Will Yes June 04, 2022 11:59pm Power of Semiautomatic Taper Operator Yes May 11:59pm Advance Directive Response Recorded Date/ Time Advance Directives Yes August 20, 2016 10:06am Living Will Yes June 05, 2022 12:59am Power of Semiautomatic Taper Operator Yes May 12:59am Advance Directive Response Recorded Date/ Time Living Will Yes June 05, 2022 12:59am Do you have a Healthcare Power of Semiautomatic Taper Operator? Yes June 05, 2022 12:59am Living Will Yes August 12 1:25am Do you have a Healthcare Power of Semiautomatic Taper Operator? Yes August 12, 2024 1:25am Living Will Yes October 13 2:30am Do you have a Healthcare Power of Semiautomatic Taper Operator? Yes October 13, 2024 2:30am Living Will Yes November 10, 2024 2:59am Do you have a Healthcare Power of Semiautomatic Taper Operator? Yes November 10, 2024 2:59am Advance Directives Yes August 20, 2016 10:06am Chief Complaint and Reason for Visit Chief Complaint ACUTE CHOLECYSITITIS Reason for Visit Acute cholecystitis Chief Complaint ACUTE CHOLECYSITITIS ACUTE CHOLECYSITITIS ACUTE CHOLECYSITITIS Reason for Visit Acute cholecystitis Chief Complaint ACUTE CHOLECYSITITIS ACUTE CHOLECYSITITIS ACUTE CHOLECYSITITIS ACUTE CHOLECYSITITIS Reason for Visit Acute cholecystitis Status post cholecystectomy Chief Complaint ACUTE CHOLECYSITITIS ACUTE CHOLECYSITITIS ACUTE CHOLECYSITITIS ACUTE CHOLECYSITITIS ACUTE CHOLECYSITITIS LEFT RENAL CYST Reason for Visit Acute cholecystitis Status post cholecystectomy Chief Complaint ACUTE CHOLECYSITITIS ACUTE CHOLECYSITITIS ACUTE CHOLECYSITITIS ACUTE CHOLECYSITITIS ACUTE CHOLECYSITITIS LEFT RENAL CYST Abnormal Billary Reason for Visit Acute cholecystitis Status post cholecystectomy Bile leak, postoperative Bile leak Chief Complaint ACUTE CHOLECYSITITIS ACUTE CHOLECYSITITIS ACUTE CHOLECYSITITIS ACUTE CHOLECYSITITIS ACUTE CHOLECYSITITIS LEFT RENAL CYST Abnormal Billary ACUTE PANCREATITIS Reason for Visit Acute cholecystitis Status post cholecystectomy Bile leak, postoperative Bile leak Acute pancreatitis Chief Complaint ACUTE CHOLECYSITITIS ACUTE CHOLECYSITITIS ACUTE CHOLECYSITITIS ACUTE CHOLECYSITITIS ACUTE CHOLECYSITITIS LEFT RENAL CYST Abnormal Billary ACUTE PANCREATITIS ACUTE PANCREATITIS ACUTE PANCREATITIS ACUTE PANCREATITIS Reason for Visit Acute cholecystitis Status post cholecystectomy Bile leak, postoperative Bile leak Acute pancreatitis Bile leak, postoperative Chief Complaint ACUTE CHOLECYSITITIS ACUTE CHOLECYSITITIS ACUTE CHOLECYSITITIS ACUTE CHOLECYSITITIS ACUTE CHOLECYSITITIS LEFT RENAL CYST Abnormal Billary ACUTE PANCREATITIS ACUTE PANCREATITIS ACUTE PANCREATITIS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
[2025-02-13 07:29] LABS: Absolute Neutrophil Count 2.8 X10^3/uL (2.0-7.7); Basophil# 0.03 X10^3/uL; Basophil% 0.5 % (0-1); Eosinophil# 0.23 X10^3/uL; Eosinophils% 4.1 % (0-5); Hematocrit 44.9 % (40-54); Hemoglobin 15.7 g/dL (13.0-16.5); Lymphocyte % 35.5 % (19-41); Mean Corpuscular Hgb 31.5 pg (27.0-32.0); Mean Corpuscular Volume 90.2 fL (80-94); Mean Platelet Vol. 9.4 fl (6.2-12.0); Monocyte# 0.55 X10^3/uL; Monocyte% 9.8 % (0-10); NRBC Flagged by Analyzer 0 % (0-5); Neutrophil # 2.81 X10^3/uL (2.7-7.7); Neutrophil % 49.7 % (47-70); Platelet Count 203 K/mm3 (150-450); RBC Distribution Width CV 13.7 % (11.6-14.6); RBC Distribution Width SD 44.9 fl (35.1-43.9); Red Blood Count 4.98 M/mm3 (4.6-6.2); White Blood Count 5.6 K/mm3 (4.4-11.0)
[2025-02-13 08:03] LABS: ALB/GLOB Ratio 1.3 RATIO (0.9-2.4); AST(SGOT) 21 U/L (<=37); Alanine Aminotransfer ALT/SGPT 21 U/L (<=46); Albumin, Serum 3.9 g/dL (3.4-4.8); Alkaline Phosphatase 71 U/L (40-129); Anion Gap 12 (5-15); BUN 21 mg/dL (4-19); BUN/Creat Ratio 21.8 RATIO (10-20); Calcium,Total 8.8 mg/dL (7.6-11.0); Carbon Dioxide 21.5 mmol/L (21.0-32.0); Chloride 105 mmol/L (98-108); Cholesterol 124 mg/dL (<=200); Creatinine, Serum 0.95 mg/dL (0.70-1.20); EST Glomerular Filtration Rate 90 (>60); Glucose 101 mg/dL (70-99); High Density Lipoprotein 41 mg/dL; Low Density Lipoprotein Calc. 71 mg/dL; PSA,Total - Annual Screen 1.15 ng/mL (0.02-4.00); Potassium 4.3 mmol/L (3.3-5.1); Protein, Total 6.8 g/dL (5.9-8.4); Sodium Level 138 mmol/L (133-145); Total Bilirubin 1.06 mg/dL (0.00-1.30); Triglycerides 59 mg/dL; Very Low Density Lipoprotein 12 mg/dL (5-40); cholesterol:hdl ratio screen 3.01
== END | disposition home or self-care (01) ==
LOC: LAB 06:39
PROVIDERS: PCP Family Medicine; Referring Provider Family Medicine; Visit Provider Family Medicine
DX: Z00.00 Encounter for general adult medical examination without abnormal findings (principal); G47.33 Obstructive sleep apnea (adult) (pediatric); Q63.1 Lobulated, fused and horseshoe kidney; K76.0 Fatty (change of) liver, not elsewhere classified; Z12.5 Encounter for screening for malignant neoplasm of prostate
CPT/HCPCS: 36415; 80053; 80061; 84153; 85025; G0103

== ENCOUNTER 2025-03-13 08:23 | Outpatient (RCR) | payer OTHER, SELFPAY | END 2025-04-11 23:59 | LOC: NS 08:23 | PROVIDERS: PCP Family Medicine; Referring Provider Family Medicine; Visit Provider Family Medicine | DX: Z71.3 Dietary counseling and surveillance (principal); E66.01 Morbid (severe) obesity due to excess calories; Z68.42 Body mass index [BMI] 45.0-49.9, adult | CPT/HCPCS: 97803 ==

== ENCOUNTER 2025-05-16 09:41 | Outpatient (RCR) | payer OTHER, SELFPAY | END 2025-06-11 23:59 | LOC: NS 09:41 | PROVIDERS: PCP Family Medicine; Referring Provider Family Medicine; Visit Provider Family Medicine | DX: Z71.3 Dietary counseling and surveillance (principal); E66.01 Morbid (severe) obesity due to excess calories; Z68.42 Body mass index [BMI] 45.0-49.9, adult | CPT/HCPCS: 97803 ==

== ENCOUNTER 2025-06-03 05:22 | Day surgery (SDC) | payer OTHER, SELFPAY ==
--- NOTE | 2025-05-28 16:56 | PAT.ANESEVAL ---
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 When Was Last Pacemaker Check QUESTION #4 FULL TEXT: You/Your Family Experience fever (hyperthermia) with Anesthesia Last Oral Intake Last Oral intake: Last Oral Intake NPO since Meds taken in AM with sips of water? Meds patient instructed to take am of surgery PONV PONV - release manager: PONV - release manager Female No 05/28/25 12:32 HX of Motion Sickness No 05/28/25 12:32 HX of N/V After Surgery No 05/28/25 12:32 Non-Smoker Yes 05/28/25 12:32 Duration of Surgery greater No 05/28/25 12:32 than 60 minutes Number of Risk Factors 1 05/28/25 12:32 PONV Score Low Risk 05/28/25 12:32 Height & Weight Height & Weight: Anesthesia: Height & Weight Height 5 ft 9 in 03/13/25 08:30 Respiratory Assessment Respiratory Assessment - release manager: Respiratory Tract Infection Hx - release manager Hx Respiratory Tract Infection No 05/28/25 12:32 STOP Sleep Apnea STOP Sleep Apnea - release manager: STOP Sleep Apnea - release manager Hx Hypertension No 05/28/25 12:32 Hx Sleep Apnea Yes 05/28/25 12:32 CPAP No 05/28/25 12:32 BIPAP Yes 05/28/25 12:32 Do you snore loudly (louder than talking or can be heard Do you often feel tired/ fatigued/ sleepy during daytime? Has anyone observed you stop breathing during sleep? STOP Results Positive 05/28/25 12:32 QUESTION #5 FULL TEXT : Do you snore loudly (louder than talking or can be heard through closed doors)? 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 Specify any problems Hx of Preganancy in last 3 N/A 05/28/25 12:32 Months Nurse Filling Out Transfusion JZOLLINGE 05/28/25 12:32 & Questions: Date: 05/28/25 05/28/25 12:32 Time: 12:34 05/28/25 12:32 Patient unable to answer at this time (ie. confused, unrespo /Reproduction History /Reproductive History - release manager: /Reproductive Hx- release manager Hx Now No 05/28/25 12:32 Gestational Age (in weeks): EDC: Hx Hx Para Hx Section SAB No 05/28/25 12:32 PFSH Medical History (Updated 05/28/25 @ 12:32 by Romi Boyce) Arthritis Fatty liver Sleep apnea Hypertension Pancreatitis Arthritis Chronic knee pain Shortness of breath on exertion History of stress test Non-smoker BiPAP (biphasic positive airway pressure) dependence Morbid obesity ABDULKADIR (obstructive sleep apnea) Acute cholecystitis Home Medications ?Medication ?Instructions ?Recorded ?Last Taken ?Type magnesium 250 mg tablet 250 mg PO DAILY supplement 03/09/22 03/12/22 History omega 4-kvg-qjb-fish oil 300 1 cap PO DAILY supplement 03/09/22 03/12/22 History mg-1,000 mg capsule (Fish Oil) multivitamin 1 tab PO QDAY 10/10/24 Unknown History Allergy/AdvReac Type Severity Reaction Status Date / Time No Known Allergies Allergy Verified 05/28/25 12:25 Family History Mother Asthma Diabetes Father Colon cancer Sister Cancer Liver cancer Brother Diabetes Surgical History (Updated 05/28/25 @ 12:32 by Romi Boyce) History of cholecystectomy History of surgery of liver Status post cholecystectomy Social History Smoking Status: Never smoker alcohol intake: never Audit: Pertinent Findings Pertinent Findings EKG Perinent findings: 03/12/2022. Normal sinus rhythm. Stress test pertinent findings: 09/15/2017. EF is 65%. No myocardial ischemia. No previous infarct. Recommendation Anesthesia Recommendation Anesthesia recommendation: OPTIMIZED for anesthesia
[2025-06-03] VITALS (7 sets, daily range): BP systolic 114–161; BP diastolic 62–70; PULSE 52–73; RESP 16; TEMP 36–36.3; O2SAT 97–100; BMI 45.6
--- OUTSIDE RECORDS SUMMARY | 2025-06-03 05:27 | XMS RPT_ITS | CCD ---
Author Organization [facility] Care Team Providers Care Health Assessment And Treatment Teacher Name Role Phone LUIS KLINE Admitting Unavailable LUIS KLINE Attending Unavailable LUIS KLINE Primary Care Unavailable YASMIN, [facility] Admitting Unavaila pam HOFFMAN, [facility] Attending Unavaila pam HOFFMAN, [facility] Primary Care Unavaila ble Dr. Tri Choudhury Primary Care Provider Dr. Lizbeth Khalil Emergency Provider [phone] Renetta Alex Admit Provider Dr. Renetta Alex Other Provider Dr. Liliane Arango Attending Provider Dr. Santino Gauthier Attending Provider Dr. Santino Gauthier Other Provider Unavailable Primary Care Provider UnavailDr. Pankaj Chamberlain Attending Provider Dr. Renetta Alex Referring Provider Dr. Tri Choudhury Referring Provider [phone] Pankaj Leung Other Provider Dr. Roberto Beasley Emergency Provider Dr. Gregg Gongora Other Provider John DIRECTOR OF SLOT OPERATIONS, DIRECTOR OF SLOT OPERATIONSJosefina Acuña Attending Provider Dr. Gregg Gongora Attending Provider Dr. Gregg Gongora Attending Provider REFERRING, MAXINE RODRIGUEZ ID Primary Care Physician Unav ailable Dr. Alex Benavidez Attending Provider Dr. Sallie Bernal Referring Provider Unavailable Primary [...] Attending Provider Dr. Sallie Bernal Referring Provider Dr. Tri Choudhury Referring Provider Yarelis DIRECTOR OF SLOT OPERATIONS, DIRECTOR OF SLOT OPERATIONS-C Julita Attending Provider TRI CHOUDHURY Primary Care [...] QUEZADA MD, MD SAME Dalton Attending Unavailable [facility] Primary Care Unavailable LATOYA HERRERA MD Attending Unavail able DR LILLY DELGADO MD Consulting Unavailable [facility] Primary Care Unavailable KELSI GODOY MD Attending Unavailable [facility] Attending Unavailable [facility] Primary Care Unavailable [facility] Referring Unavailable PILAR ARNDT MD [facility] Dalton Attending Unavailable [facility] Primary Care Unavailable PILAR ARNDT MD [facility] Dalton Attending Unavailable [facility] Primary Care Unavailable CORNELIO WEVAER MD Attending Unavailable DR LILLY DELGADO MD Admitting Unavailable [facility] Primary Care Unavailable SIMON MARK MD Attending [...] Attending Unavailable LOPEZ JANE MD Consulting Unavailable [place] SVETAM[place]LE, NANO Attending Unavailable [facility] Primary Care Unavailable PILAR ARNDT MD SAME Dalton Attending Unavailable [facility] Primary Care Unavailable KENZIE WALDRON MD Consulting Unavailable OSMAR STRATTON, DAMIAN Consulting UnavailDr. Tri Mckeon Primary Care Provider [phone] Dr. Tri Choudhury Referring Provider Yarelis DIRECTOR OF SLOT OPERATIONS, DIRECTOR OF SLOT OPERATIONS-C Julita Attending Provider Dr. Tri Choudhury MD Primary Care Provider [phone] Dr. Tri Choudhury MD Attending Provider [phone] Macey ARNDT, Dr. Bartlett Referring Provider [phone] Justa Dee Attending Provider Macey ARNDT, Dr. Bartlett Primary Care Provider Macey ARNDT, Dr. Bartlett Attending Provider [phone] Macey ARNDT, Dr. Bartlett Referring Provider [phone] Macey ARNDT, Dr. Bartlett Primary Care Provider Macey ARNDT, Dr. Bartlett Attending Provider [phone] Macey ARNDT, Dr. Bartlett Referring Provider [phone] Macey ARNDT, Dr. Bartlett Primary Care Provider Macey ARNDT, Dr. Bartlett Attending Provider [phone] Macey ARNDT, Dr. Bartlett Referring Provider [phone] Ibeth Serrano Attending Provider Miedel, Tri Attending Unavailable Miedel, Tri Primary Care Unavailable Miedel, Tri Referring Unavailable Miedel, Tri Attending Unavailable Miedel, Tri Primary Care Unavailable Miedel, Tri Referring Unavailable Miedel, Tri Referring Unavailable Miedel, Tri Attending Unavailable Miedel, Tri Primary Care Unavailable Miedel, Tri Attending Unavailable Miedel, Tri Referring Unavailable Miedel, Tri Primary Care Unavailable Miedel, Tri Attending Unavailable Miedel, Tri Referring Unavailable Miedel, Tri Primary Care Unavailable Miedel, Tri Primary Care Unavailable Ibeth Bragg Attending Unavailable Miedel, Tri Referring Unavailable Miedel, Tri Referring Unavailable Miedel, Tri Primary Care Unavailable Justa Alba Attending Unavailable Miedel, Tri Attending Unavailable Miedel, Tri Primary Care Unavailable Miedel, Tri Referring Unavailable Miedel, Tri Attending Unavailable Miedel, Tri Referring Unavailable Mnedel, Tri Primary Care Unavailable Mnedel, Tri Attending Unavailable Mnedel, Tri Referring Unavailable Miedel, Tri Primary Care Unavailable Miedel, Tri Attending Unavailable Miedel, Tri Referring Unavailable Miedel, Tri Primary Care Unavailable Miedel, Tri Attending Unavailable Miedel, Tri Referring Unavailable Mnedel, Tri Primary Care Unavailable Miedel, Tri Referring Unavailable Miedel, Tri Primary Care Unavailable FriendYogesh Attending Unavailable Mnedel, Tri Attending Unavailable Mnedel, Tri Primary Care Unavailable Miedel, Tri Referring Unavailable Medications Current Medications Medication Drug Class(es) Dates Sig (Normalized) Sig (Original) aspirin 81 mg delayed release oral tablet (9 sources) Platelet Aggregation Inhibitor, Nonsteroidal Anti-inflammatory Drug Start: 03-08-2022 take 1 tablet by mouth once daily Aspirin (Adult Aspirin Regimen) 81 mg tablet,delayed release (DR/EC) Active 81 MG PO DAILY March 08, 2022 12:00am ciprofloxacin 250 mg oral tablet (3 sources) Quinolone Antimicrobial Start: 01-15-2023 End: 01-22-2023 Cipro 250 mg oral tablet Dose : 500 mg = 2 tab(s), Oral, q12h, X 7 day(s), # 28 tab(s), 0 Refill(s), 01/22/23 14:25:00 EDT, Pharmacy: [facility]/pharmacy #[id number], 177.8, cm, 01/10/23 4:07:00 EDT, Height, 156.4 Start Date: 01/15/23 Stop Date: 01/22/23 Status: Ordered Start: 03-31-2022 ciprofloxacin 500 mg oral tablet Dose : 500 mg = 1 tab(s), Oral, q12h Start Date: 03/31/22 Status: Ordered Mathews 5-Eqp-Bkw-Fish Oil (16 sources) Start: 03-09-2022 Mathews 3-Dha-Ep a-Fish Oil (Fish Oil) 300-1,000 mg Capsule Active 1 NMA PO DAILY March 09, 2022 12:00am supplement Start: 03-09-2022 Mathews 3-Dha-Ep a-Fish Oil (Fish Oil) 300-1,000 mg Capsule Active 1 NMA PO DAILY March 09, 2022 12:00am Start: 03-09-2022 take 300-1000 mg by mouth once daily Mathews 6-Juy-Yvd-Fish Oil (Fish Oil) 300-1,000 mg Capsule Active 1 CAP PO DAILY March 08, 2022 11:00pm Start: 03-09-2022 take 300-1000 mg by mouth once daily Mathews 8-Jqy-Cpk-Fish Oil (Fish Oil) 300-1,000 mg Capsule Active 1 CAP PO DAILY March 09, 2022 12:00am docusate sodium 50 mg / sennosides, assisted 8.6 mg oral tablet (3 sources) Start: 03-31-2023 take 1 tablet by gab th twice daily as needed for constipation Senexon-S 50 mg-8.6 mg oral tablet Dose = 2 tab(s), Oral, BID, PRN Constipation, 0 Refill(s) Start Date: 03/31/23 Status: Ordered Start: 02-27-2023 End: 03-28-2023 take 2 tablets by mouth twice daily sennosides-docusate 8.6 mg-50 mg oral tablet ; 2 tab(s) orally 2 times a day Quantity: 60 Refills: 0 Ordered: 27-Feb-2023 Chacha Yeung Start: 27-Feb-2023 End: 28-Mar-2023 Generic Substitution Allowed Fish Oils (10 sources) Start: 03-31-2022 omega-3 fish o il 1000 mg oral capsule Dose : 1,000 mg = 1 cap(s), Oral, qAM, 0 Refill(s) Start Date: 03/31/22 Status: Ordered Start: 03-31-2022 omega-3 fish o il 1000 mg oral capsule Dose : 1,000 mg = 1 cap(s), Oral, qDay, 0 Refill(s) Start Date: 03/31/22 Status: Ordered Magnesium (16 sources) Start: 03-09-2022 take 1 tablet by gab th once daily Magnesium 250 mg Tablet Active 250 mg PO DAILY March 09, 2022 12:00am supplement Start: 03-09-2022 take 1 tablet by gab th once daily Magnesium 250 mg Tablet Active [...] Gustavo Naranjo Generic Substitution Allowed Multivitamin tablet (5 sources) Start: 10-10-2024 Multivitamin t ablet Active 1 [...] qAM, # 30 tab(s), 0 Refill(s), Pharmacy: [facility]/pharmacy #[id number], 177.8, cm, 01/10/23 4:07:00 EDT, [...] tab(s), 0 Refill(s), 01/18/23 14:00:00 EDT, Pharmacy: [facility]/pharmacy #[id number], Acute post-operative pain, 177.8, cm, [...] Active Start: 02-25-2023 take 2 tablets by mo [facility] every six hours acetaminophen 325 mg oral tablet ; 2 tab(s) orally every 6 hours Quantity: 0 Refills: 0 Ordered: 25-Feb-2023 Justa Blackman Start: 25-Feb-2023 Generic Substitution Allowed acetaminophen (T YLENOL ORAL) Take by mouth as needed. 0 Active Comment on above: Take by mouth as nee ded. acetaminophen 325 mg / oxyCODONE hydrochloride 5 mg oral tablet (18 sources) Opioid Agonist Start: 08-20-2016 End: 12-22-2016 [...] 20, 2016 1:00am December 22, 2016 3:25pm amLODIPine 10 mg oral tablet (20 sources) Dihydropyridine Calcium Channel Dimitris Start: 03-18-2022 End: 04-18-2025 take 1 tablet by mouth once daily Amlodipine 10 mg Tablet Discontinued 10 mg PO DAILY 30 0 March 18, 2022 12:00am April 18, 2025 3:00pm take 1 tablet by mouth once duane y amLODIPine Besylate 5 MG Oral Tablet TAKE 1 TABLET DAILY. Quantity: 1 Refills: 0 Ordered: 02-Feb-2023 DO Active Comment on above: Take 10 mg by mouth once daily. Calcium (5 sources) Phosphate Binder, Calcium Calcium CAPS Quantit y: 0 Refills: 0 Ordered: 02-Feb-2023 DO Active capsicum extract 500 mg oral capsule (5 sources) Start: 10-10-2024 End: 04-18-2025 Capsicum (Cayenne) 500 mg capsule Discontinued mg PO October 10, 2024 1:00am April 18, 2025 3:00pm chlorhexidine gluconate 1.2 mg/ml mouthwash (4 sources) Start: 02-22-2023 Hibiclens 4 % External Liquid use as a preoperative shower Quantity: 1 Refills: 0 Ordered: 22-Feb-2023 Nir SURGICAL SPECIALIST-SHOCHETNano Start : 22-Feb-2023 Active Start: 02-22-2023 take [...] or discontinue unless directed by your doctor. lisinopril 20 mg oral tablet (20 sources) Angiotensin Converting Enzyme Inhibitor Start: 03-18-2022 End: 04-18-2025 take 1 tablet by mouth once daily Lisinopril 20 mg Tablet Discontinued 20 mg PO DAILY 30 0 March 18, 2022 12:00am April 18, 2025 3:00pm Comment on above: Take 20 mg by mouth once daily. metroNIDAZOLE 500 mg oral tablet (3 sources) [...] Chavez Richardson MD Start : 10-Feb-2023 Active Mathews 3 CAPS (5 sources) Mathews 3 CAPS MIRELLA E DIRECTED. Quantity: 0 Refills: 0 Ordered: 02-Feb-2023 DO Active rivaroxaban 20 mg oral tablet (18 sources) Factor Xa Inhibitor Start: 12-13-2016 End: 12-22-2016 take 1 tablet by mouth once daily Rivaroxaban (Xarelto) 20 MG tablet Discontinued 20 mg PO DAILY December 13, 2016 12:00am December 22, 2016 3:55pm Problems Active Problems Problem Classification Problem Date Documented Da te Episodic/Chronic Abdominal pain (11 sources) Abdominal pain; Translations: [Unspecified abdominal pain] [...] aftercare] Episodic Other aftercare (1 source) Other penitentiary (current) drug therapy; Translations: [Other longshore equipment operator (current) drug therapy] Onset: 3 Episodic Other [...] Chronic Other nutritional; endocrine; and metabolic disorders (15 sources) Morbid obesity; Translations: [Morbid (severe) obesity [...] conditions (not mental disorders or infectious disease) (4 sources) Imaging of biliary tract abnormal; Translations: [Abnormal results of function studies of other organs and systems] Onset: 2 Episodic Pancreatic disorders (not diabetes) (20 sources) Acute pancreatitis; Translations: [Acute pancreatitis without necrosis or infection, unspecified] Onset: 2 Episodic Phlebitis; thrombophlebitis and thromboembolism (14 sources) Superficial thrombophlebitis; Translations: [Phlebitis and thrombophlebitis of unspecified site] Onset: 3 Episodic Residual codes; unclassified (15 sources) Sleep apnea; Translations: [Unspecified sleep apnea] 03-31-2022 Chronic Residual codes; unclassified (4 sources) Obstructive sleep apnea (adult) (pediatric); Translations: [Obstructive sleep apnea (adult)(pediatric)] Onset: 3 Chronic Residual codes; unclassified (8 sources) Obstructive sleep apnea syndrome; Translations: [Obstructive [...] W/O CHOLECYSTITIS W/O OBSTRUCTION K80.20/ CPT CODE 45943 02-24-2023 Comment on above: ICD-10 CALCULUS OF G ALLBLADDER W/O CHOLECYSTITIS W/O OBSTRUCTION K80.20/ CPT CODE 93681 Unclassified (2 sources) Body mass index [BMI] [...] CHOLECYSTITIS W/O OBSTRUCTION, OPEN CHOLY, CPT CODE 75328 02-24-2023 Comment on above: CALCULUS OF GALLBLAD JULIAN W/O CHOLECYSTITIS W/O OBSTRUCTION, OPEN CHOLY, CPT CODE 68215 Results Test Name Value Interpretation Reference Range Facility /Mik 05-28-2025 MR/[facility] Medical Records Department [address] [place] [address] PAT - Anesthesia 05/28/25 1656 MR#: [id number] Acct: [id number] Name: GUSTAVO CERDA Rep #: [id number] : 1960 64 From: Anish Marr MD PCP: Dr. Tri Choudhury MD Status:PRE SDC Y Race: C Location: [place] Pre-Assessment Diagnosis/Proposed Procedure Planned Operative Procedure(s): Colonoscopy Anesthesia History Anesthesia History - rehabilitation counsellor: Anesthesia History - rehabilitation counsellor Hx Hospitalization No 05/28/25 12:32 Any Problems With Anesthesia No 05/28/25 12:32 Cholinesterase deficiency No 05/28/25 12:32 You/Your Family Experience No 05/28/25 12:32 fever (hyperthermia) with Relationship Recent Exposure to Contagious No 03/12/22 10:02 Disease Does patient have nerve No 05/28/25 12:32 stimulator Patient instructed to have device shut off --Does patient have Pacemaker or ICD? When Was Last Pacemaker Check QUESTION #4 FULL TEXT: You/Your Family Experience fever (hyperthermia) with Anesthesia Last Oral Intake Last Oral intake: Last Oral Intake NPO since Meds taken in AM with sips of water? Meds patient instructed to take am of surgery PONV PONV - rehabilitation counsellor: PONV - rehabilitation counsellor Female No 05/28/25 12:32 HX of Motion Sickness No 05/28/25 12:32 HX of N/V After Surgery No 05/28/25 12:32 Non-Smoker Yes 05/28/25 12:32 Duration of Surgery greater No 05/28/25 12:32 than 60 minutes Number of Risk Factors 1 05/28/25 12:32 PONV Score Low Risk 05/28/25 12:32 Height Weight Height Weight: Anesthesia: Height Weight Height 5 ft 9 in 03/13/25 08:30 Respiratory Assessment Respiratory Assessment - rehabilitation counsellor: Respiratory Tract Infection Hx - rehabilitation counsellor Hx Respiratory Tract Infection No 05/28/25 12:32 STOP Sleep Apnea STOP Sleep Apnea - rehabilitation counsellor: STOP Sleep Apnea - rehabilitation counsellor Hx Hypertension No 05/28/25 12:32 Hx Sleep Apnea Yes 05/28/25 12:32 CPAP No 05/28/25 12:32 BIPAP Yes 05/28/25 12:32 Do you snore loudly (louder than talking or can be heard Do you often feel tired/ fatigued/ sleepy during daytime? Has anyone observed you stop breathing during sleep? STOP Results Positive 05/28/25 12:32 QUESTION #5 FULL TEXT : Do you snore loudly (louder than talking or can be heard through closed doors)? 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 Specify any problems Hx of Preganancy in last 3 N/A 05/28/25 12:32 Months Nurse Filling Out Transfusion JZOPEREZ 05/28/25 12:32 Questions: Date: 05/28/25 05/28/25 12:32 Time: 12:34 05/28/25 12:32 Patient unable to answer at this time (ie. confused, unrespo /Reproduction History /Reproductive History - rehabilitation counsellor: /Reproductive Hx- rehabilitation counsellor Hx Now No 05/28/25 12:32 Gestational Age (in weeks): EDC: Hx Hx Para Hx Section SAB No 05/28/25 12:32 PFSH Medical History (Updated 05/28/25 @ 12:32 by Romi Boyce) Arthritis Fatty liver Sleep apnea Hypertension Pancreatitis Arthritis Chronic knee pain Shortness of breath on exertion History of stress test Non-smoker BiPAP (biphasic positive airway pressure) dependence Morbid obesity ABDULKADIR (obstructive sleep apnea) Acute cholecystitis Home Medications ???Medication ???Instructions ???Recorded ???Last Taken ???Type magnesium 250 mg tablet 250 mg PO DAILY supplement 2 03/12/22 History omega 2-ztp-umj-fish oil 300 1 cap PO DAILY supplement 03/09/22 03/12/22 History mg-1,000 mg capsule (Fish Oil) multivitamin 1 tab PO QDAY 10/10/24 Unknown His tory Allergy/AdvReac Type Severity Reaction Status Date / Time No Known Allergies Allergy Verified 05/28/25 12:25 Family History Mother Asthma Diabetes Father Colon cancer Sister Cancer Liver cancer Brother Diabetes Karsten (more content not included)... Normal [facility] Gastroenterology Visit Repor ton 04-18-2025 Gastroenterology Visit Report [facility] Gastroenterology [address] [place] [address] OFFICE VISIT Date of Service: 04/18/25 MR#: [id number] Acct: [id number] Name: GUSTAVO CERDA Rep #: [id number] : 1960 Provider: MELANI Arredondo Age/Sex: 64/M Location: [facility] Status: Signed Intake Vital Signs 03/13/25 08:30 Height 5 ft 9 in Intake Visit Reasons: Pre-Colonoscopy Screening Chief Complaint: Screening colonoscopy Allergies No Known Allergies Allergy (Verified 10/10/24 09:54) Medications ???Medication ???Instructions ???Recorded ???Confirmed ???Type magnesium 250 mg tablet 250 mg PO DAILY supplement 2 04/18/25 History omega 8-zde-ins-fish oil 300 1 cap PO DAILY supplement 03/09/22 04/18/25 History mg-1,000 mg capsule (Fish Oil) multivitamin 1 tab PO QDAY 10/10/24 04/18/25 Ne ayleen Nurse's Note: OV 04/18/25 Pt here to establish care with [facility]. Pt complaints of mild constipation in the evenings. He reports small amounts of blood occasionally. Pt reports prior hx of colonoscopy about 10 yrs ago. Reports gallbladder is removed [facility] Medical History Pancreatitis Arthritis Chronic knee pain [...] Smoking Status: Never smoker alcohol intake: never HPI HPI Chief Complaint: Screening colonoscopy Details: GUSTAVO CERDA, is a 64 M who presents to the office today for establishment. PMHx of pancreatitis, s/p cholecystectomy, obesity and ABDULKADIR Patient here today to be scheduled for screening colonoscopy. Last colonoscopy was 10 years ago with no abnormalities. Patient has some constipation here and there. He has daily bowel movements however he does strain on occasion. He does have blood in his stool on occasion. He endorses a family history of colon cancer in his father who was diagnosed in his 50s. He has no GI complaints today. ROS Const Constitutional: Positive for weight change; No fatigue or fever(s) ENT ENT: No difficulty swallowing Gastro GI: No abdominal pain, belching, bloating, change in bowel habits, change in stool character, coffee ground emesis, constipation, cramping, diarrhea, heartburn, difficulty swallowing, feeling full early, excessive flatus, incontinent of stools, Vomiting blood/hematemesis, Blood in stool, loose stools, Black,tarry stools, nausea/dyspepsia, pain with swallowing, vomiting or other Musc Musculoskeletal: Positive for joint pain and Arthritis Skin Skin: No yellowing of the eye or itchy eyes Psych Psychiatric: No anxiety and No depression Endo Endocrine: Positive for weight change; No fatigue Aller/Imm Allergy/Immunologic: No itchy eyes Alec/Lymp Hematologic/Lymphatic: No easy bleeding or easy bruising Exam Const General: cooperative and comfortable Nutritional Appearance: overweight Orientation: alert HENMT Head: normal to inspection Eyes General: appearance normal, both eyes and all related structures Neck Neck: normal visual inspection Chest Chest palpation inspection: normal inspection of the chest Resp Effort Inspection: normal respiratory effort Cardio Rate: regular rate Rhythm: regular rhythm GI Inspection: normal to inspection Auscultation: normal bowel sounds Palpation: not firm, no guarding and nontender Assessment and Plan Assessment and Plan (1) Encounter for screening colonoscopy: Status: Acute Plan: Follow-up is a 64-year-old male patient here today for consultation for screening colonoscopy. Patient last had colonoscopy over 10 years ago with no abnormalities. He has a family history of colon cancer in his father who was diagnosed at age 50. Patient denies GI symptoms at this time. Patient was scheduled for colonoscopy. - Screening colonoscopy - Follow-up as needed Note:Diarize speech recognition ritual circumciser software was used to create portions of this document. Sound-alike and misspelled words, as well as other ritual circumciser errors may be contained in the documentation. Coding Level of Care Code Off vis,new,level 3 Diagnoses Encounter for screening colonoscopy Z12.11 04/18/25 1530 Date Ibeth POLO (more content not included)... Normal [facility] Absolute lymphocyte countOrd ered By: Tir Choudhury on 02-13-2025 Lymphocytes Auto (Unsp spec) [#/Vol] 2.00 10*3/uL 0.83-4.51 [facility] Absolute neutrophil countOrd ered By: Tri Choudhury on 02-13-2025 Neutrophils (Bld) [#/Vol] 2.8 10*3/uL 2.0-7.7 [facility] Anion gap in Serum or Plasma Ordered By: Tri Choudhury on 02-13-2025 Anion gap [Moles/Vol] 12 mmol/L 5-15 [facility] Automated lymphocyte count a s percentage of total leukocytesOrdered By: Tri Choudhury on 02-13-2025 Lymphocytes/100 WBC Auto (Unsp spec) 35.5 % -41 [facility] BUN/creatinine ratioOrdered By: Tri Choudhury on 02-13-2025 Urea nitrogen/Creatinine [Mass ratio] 21.8 mg/mg High 10-20 [facility] Basophil percentageOrdered B y: Tri Choudhury on 02-13-2025 Basophils/100 WBC (Bld) 0.5 % 0-1 [facility] Bilirubin, totalOrdered By: Tri Choudhury on 02-13-2025 Bilirubin [Mass/Vol] 1.06 mg/dL 0.00-1.30 [facility] CBC W/Diff, Automatedon Absolute Lymph 2.00 X10 3/uL Normal 0.83-4.51 [facility] Comment on above: Performed By: #### L 100.0100, L500.4050, L500.4100, L501.9910 #### [facility] [address] [place], [address] Absolute Neut 2.8 X10 3/uL Normal 2.0-7.7 [facility] Comment on above: Performed By: #### L 100.0100, L500.4050, L500.4100, L501.9910 #### [facility] [address] [place], [address] Basophils/100 WBC (Bld) 0.5 % Normal 0-1 [facility] Comment on above: Performed By: #### L 100.0100, L500.4050, L500.4100, L501.9910 #### [facility] [address] [place], [address] Eosinophils/100 WBC (Bld) 4.1 % Normal 0-5 [facility] Comment on above: Performed By: #### L 100.0100, L500.4050, L500.4100, L501.9910 #### [facility] [address] [place], [address] Erythrocyte distribution width (RBC) [Ratio] 13.7 % Normal 11.6-14.6 [facility] Comment on above: Performed By: #### L 100.0100, L500.4050, L500.4100, L501.9910 #### [facility] [address] [place], [address] Hematocrit (Bld) [Volume fraction] 44.9 % Normal 40-54 [facility] Comment on above: Performed By: #### L 100.0100, L500.4050, L500.4100, L501.9910 #### [facility] [address] [place], [address] Hemoglobin (Bld) [Mass/Vol] 15.7 g/dL Normal 13.0-16.5 [facility] Comment on above: Performed By: #### L 100.0100, L500.4050, L500.4100, L501.9910 #### [facility] [address] [place], [address] IG% 0.400 Normal 0.0-0.9 [facility] Comment on above: Result Comment: IG% - Immature Granulocytes (promyelocytes, myelocytes and metamyelocytes) > 1% indicates that a LEFT SHIFT is Present. Performed By: #### L 100.0100, L500.4050, L500.4100, L501.9910 #### [facility] Laboratory [address] [place], [address] Lymphocytes/100 WBC (Bld) 35.5 % Normal 19-41 [facility] Comment on above: Performed By: #### L 100.0100, L500.4050, L500.4100, L501.9910 #### [facility] [address] [place], [address] MCH (RBC) [Entitic mass] 31.5 pg Normal 27.0-32.0 [facility] Comment on above: Performed By: #### L 100.0100, L500.4050, L500.4100, L501.9910 #### [facility] [address] [place], [address] MCHC (RBC) [Mass/Vol] 35.0 g/dL Normal 32-36 [facility] Comment on above: Performed By: #### L 100.0100, L500.4050, L500.4100, L501.9910 #### [facility] [address] [place], [address] MCV (RBC) [Entitic vol] 90.2 fL Normal 80-94 [facility] Comment on above: Performed By: #### L 100.0100, L500.4050, L500.4100, L501.9910 #### [facility] [address] [place], [address] Monocytes/100 WBC (Bld) 9.8 % Normal 0-10 [facility] Comment on above: Performed By: #### L 100.0100, L500.4050, L500.4100, L501.9910 #### [facility] [address] [place], [address] Neutrophils/100 WBC (Bld) 49.7 % Normal 47-70 [facility] Comment on above: Performed By: #### L 100.0100, L500.4050, L500.4100, L501.9910 #### [facility] [address] [place], [address] Nucleated RBC (Bld) [#/Vol] 0 10*3/uL Normal 0-5 [facility] Comment on above: Performed By: #### L 100.0100, L500.4050, L500.4100, L501.9910 #### [facility] [address] [place], [address] Platelet mean volume (Bld) [Entitic vol] 9.4 fL Normal 6.2-12.0 [facility] Comment on above: Performed By: #### L 100.0100, L500.4050, L500.4100, L501.9910 #### [facility] [address] [place], [address] Platelets (Bld) [#/Vol] 203 10*3/uL Normal 150-450 [facility] Comment on above: Performed By: #### L 100.0100, L500.4050, L500.4100, L501.9910 #### [facility] [address] [place], [address] RBC (Bld) [#/Vol] 4.98 10*6/uL Normal 4.6-6.2 [facility] Comment on above: Performed By: #### L 100.0100, L500.4050, L500.4100, L501.9910 #### [facility] [address] [place], [address] RDW SD 44.9 fl High 35.1-43.9 [facility] Comment on above: Performed By: #### L 100.0100, L500.4050, L500.4100, L501.9910 #### [facility] [address] [place], [address] WBC (Bld) [#/Vol] 5.6 10*3/uL Normal 4.4-11.0 [facility] Comment on above: Performed By: #### L 100.0100, L500.4050, L500.4100, L501.9910 #### [facility] [address] [place], [address] Calculated very low density lipoprotein (VLDL) cholesterol measurementOrdered By: Tri Choudhury on 02-13-2025 Calculated very low density lipoprotein (VLDL) cholesterol measurement 12 mg/dL 5-40 [facility] Carbon dioxide, total [Moles /volume] in Central venous bloodOrdered By: Tri Choudhury on 02-13-2025 CO2 [Moles/Vol] 21.5 mmol/L 21.0-32.0 [facility] Chloride assayOrdered By: Lee Navarroel on 02-13-2025 Chloride [Moles/Vol] 105 mmol/L 98-108 [facility] Comprehensive Metabolic Prof ilon 02-13-2025 Albumin [Mass/Vol] 3.9 g/dL Normal 3.4-4.8 [facility] Comment on above: Performed By: #### L 100.0100, L500.4050, L500.4100, L501.9910 #### [facility] [address] [place], [address] Albumin/Globulin [Mass ratio] 1.3 {ratio} Normal 0.9-2.4 [facility] Comment on above: Performed By: #### L 100.0100, L500.4050, L500.4100, L501.9910 #### [facility] [address] [place], [address] ALK PHOS 71 U/L Normal 40-129 [facility] Comment on above: Performed By: #### L 100.0100, L500.4050, L500.4100, L501.9910 #### [facility] [address] [place], [address] ALT [Catalytic activity/Vol] 21 U/L Normal <=46 [facility] Comment on above: Performed By: #### L 100.0100, L500.4050, L500.4100, L501.9910 #### [facility] [address] [place], [address] AST [Catalytic activity/Vol] 21 U/L Normal <=37 [facility] Comment on above: Performed By: #### L 100.0100, L500.4050, L500.4100, L501.9910 #### [facility] [address] [place], [address] Bilirubin [Mass/Vol] 1.06 mg/dL Normal 0.00-1.30 [facility] Comment on above: Performed By: #### L 100.0100, L500.4050, L500.4100, L501.9910 #### [facility] [address] [place], [address] BUN/CRE 21.8 RATIO High 10-20 [facility] Comment on above: Performed By: #### L 100.0100, L500.4050, L500.4100, L501.9910 #### [facility] [address] [place], [address] Calcium [Mass/Vol] 8.8 mg/dL Normal 7.6-11.0 [facility] Comment on above: Performed By: #### L 100.0100, L500.4050, L500.4100, L501.9910 #### [facility] [address] [place], [address] Chloride [Moles/Vol] 105 mmol/L Normal 98-108 [facility] Comment on above: Performed By: #### L 100.0100, L500.4050, L500.4100, L501.9910 #### [facility] [address] [place], [address] CO2 [Moles/Vol] 21.5 mmol/L Normal 21.0-32.0 [facility] Comment on above: Performed By: #### L 100.0100, L500.4050, L500.4100, L501.9910 #### [facility] [address] [place], [address] Creatinine [Mass/Vol] 0.95 mg/dL Normal 0.70-1.20 [facility] Comment on above: Performed By: #### L 100.0100, L500.4050, L500.4100, L501.9910 #### [facility] [address] [place], [address] GAP 12 Normal 5-15 [facility] Comment on above: Performed By: #### L 100.0100, L500.4050, L500.4100, L501.9910 #### [facility] [address] [place], [address] GFR/1.73 sq M.predicted among non-blacks MDRD (S/P/Bld) [Vol rate/Area] 90 mL/min/{1.73_m2} Normal >60 [facility] Comment on above: Result Comment: mL/m in/1.73m2 CKD-EPI Creatinine Equation (2020) Performed By: #### L 100.0100, L500.4050, L500.4100, L501.9910 #### [facility] [address] [place], [address] Globulin (S) [Mass/Vol] 3.0 g/dL Normal 2.2-4.2 [facility] Comment on above: Performed By: #### L 100.0100, L500.4050, L500.4100, L501.9910 #### [facility] [address] [place], [address] Glucose [Mass/Vol] 101 mg/dL High 70-99 [facility] Comment on above: Performed By: #### L 100.0100, L500.4050, L500.4100, L501.9910 #### [facility] [address] [place], [address] Potassium [Moles/Vol] 4.3 mmol/L Normal 3.3-5.1 [facility] Comment on above: Performed By: #### L 100.0100, L500.4050, L500.4100, L501.9910 #### [facility] [address] [place], [address] Sodium [Moles/Vol] 138 mmol/L Normal 133-145 [facility] Comment on above: Performed By: #### L 100.0100, L500.4050, L500.4100, L501.9910 #### [facility] [address] [place], [address] T PROT 6.8 g/dL Normal 5.9-8.4 [facility] Comment on above: Performed By: #### L 100.0100, L500.4050, L500.4100, L501.9910 #### [facility] [address] [place], [address] Urea nitrogen [Mass/Vol] 21 mg/dL High 4-19 [facility] Comment on above: Performed By: #### L 100.0100, L500.4050, L500.4100, L501.9910 #### [facility] [address] [place], [address] Eosinophil percentageOrdered By: Tri Choudhury on 02-13-2025 Eosinophils/100 WBC (Bld) 4.1 % 0-5 [facility] Erythrocyte distribution wid th ratioOrdered By: Tri Choudhury on 02-13-2025 Erythrocyte distribution width (RBC) [Ratio] 13.7 % 11.6-14.6 [facility] Erythrocyte distribution wid th standard deviationOrdered By: Tri Choudhury on 02-13-2025 Erythrocyte distribution width (RBC) [Ratio] 44.9 fl High 35.1-43.9 [facility] Glomerular filtration rate ( GFR) estimation/1.73 sq m using serum, plasma, or whole bOrdered By: Tri Choudhury on 02-13-2025 GFR/1.73 sq M.predicted among non-blacks MDRD (S/P/Bld) [Vol rate/Area] 90 mL/min/{1.73_m2} >60 [facility] Comment on above: mL/min/1.73m2 CKD-EP I Creatinine Equation (2020) Hematocrit Auto (Bld) [Volum e fraction]Ordered By: Tri Choudhury on 02-13-2025 Hematocrit (Bld) [Volume fraction] 44.9 % 40-54 [facility] Hemoglobin measurementOrdere d By: Tri Choudhury on 02-13-2025 Hemoglobin (Bld) [Mass/Vol] 15.7 g/dL 13.0-16.5 [facility] Immature granulocytes/100 WB C Auto (Bld)Ordered By: Tri Choudhury on 02-13-2025 Immature granulocytes/100 WBC (Bld) 0.400 % 0.0-0.9 [facility] Comment on above: IG% - Immature Granu locytes (promyelocytes, myelocytes and metamyelocytes) > 1% indicates that a LEFT SHIFT is Present. LDL calc ser/plasOrdered By: Tri Choudhury on 02-13-2025 Cholesterol in LDL [Mass/Vol] 71 mg/dL [facility] Comment on above: Yqfgndoyyp=132-723 m g/dL & Higher Wenp=003 mg/dL or greater Laboratory - Chemistry and C hemistry - challengeOrdered By: Tri Choudhury on 02-13-2025 AST [Catalytic activity/Vol] 21 U/L <38 [facility] Lipid Profileon 02-13-2025 CHOL:HDL 3.01 Normal [facility] Comment on above: Performed By: #### L 100.0100, L500.4050, L500.4100, L501.9910 #### [facility] [address] [place], [place], [address] Cholesterol [Mass/Vol] 124 mg/dL Normal <=200 [facility] Comment on above: Result Comment: Chol esterol level, Desirable <200 mg/dL Borderline high cholesterol 200-239 mg/dL High cholesterol >=240 mg/dL Recommendations of the NCEP Adult Treatment Panel for the following risk-cutoff thresholds for the [place] population. Performed By: #### L 100.0100, L500.4050, L500.4100, L501.9910 #### [facility] [address] [place], [place], [id number] Cholesterol in HDL [Mass/Vol] 41 mg/dL Normal [facility] Comment on above: Result Comment: [place] onal Cholesterol Education Program (NCEP) guidelines: <40 mg/dL: Low HDL-cholesterol (major risk factor for CHD) >= 60 mg/dL: High HDL-cholesterol (negative risk factor for CHD) HDL-cholesterol is affected by a number of factors, e.g. smoking, exercise, hormones, sex and age. Performed By: #### L 100.0100, L500.4050, L500.4100, L501.9910 #### [facility] [address] [place], [address] Cholesterol in LDL [Mass/Vol] 71 mg/dL Normal [facility] Comment on above: Result Comment: Bord iteykq=842-619 mg/dL Higher Sway=653 mg/dL or greater Performed By: #### L 100.0100, L500.4050, L500.4100, L501.9910 #### [facility] [address] [place], [address] Cholesterol in VLDL [Mass/Vol] 12 mg/dL Normal 5-40 [facility] Comment on above: Performed By: #### L 100.0100, L500.4050, L500.4100, L501.9910 #### [facility] [address] [place], [address] Triglyceride [Mass/Vol] 59 mg/dL Normal [facility] Comment on above: Result Comment: The drugs N-Acetylcysteine and Metamizole may falsely depress this assay. Normal range: <150 mg/dL Borderline High: 150-199 mg/dL High: 200-499 mg/dL Very High: >500 mg/dL Performed By: #### L 100.0100, L500.4050, L500.4100, L501.9910 #### [facility] [address] [place], [address] MCV (mean corpuscular volume ) determinationOrdered By: Tri Choudhury on 02-13-2025 MCV (RBC) [Entitic vol] 90.2 fL 80-94 [facility] Mean corpuscular hemoglobin (MCH) determinationOrdered By: Tri Choudhury on 02-13-2025 MCH (RBC) [Entitic mass] 31.5 pg 27.0-32.0 [facility] Mean corpuscular hemoglobin concentration (MCHC) determinationOrdered By: Tri Choudhury on 02-13-2025 MCHC (RBC) [Mass/Vol] 35.0 g/dL 32-36 [facility] Mean platelet volume determi nationOrdered By: Tri Choudhury on 02-13-2025 Platelet mean volume (Bld) [Entitic vol] 9.4 fL 6.2-12.0 [facility] Monocyte percentageOrdered B y: Tri Choudhury on 02-13-2025 Monocytes/100 WBC (Bld) 9.8 % 0-10 [facility] Neutrophil percentageOrdered By: Tri Macey on 02-13-2025 Neutrophils/100 WBC (Bld) 49.7 % 47-70 [facility] Nucleated red blood cell per centageOrdered By: Tri Choudhury on 02-13-2025 Nucleated RBC/100 WBC (Bld) [Ratio] 0 % 0-5 [facility] PSA,Total - Annual Screenon 02-13-2025 PSA,TOT SCREEN 1.15 ng/mL Normal 0.02-4.00 [facility] Comment on above: Result Comment: This test was performed using the [employer] tPSA method. Measured values of a patient??sample can vary depending on the testing procedure used. PSA values determined on patient samples by different testing procedures cannot be used interchangeably. If there is a change in PSA assays while monitoring therapy, sequential testing should be performed to confirm baseline values. Performed By: #### L 100.0100, L500.4050, L500.4100, L501.9910 #### [facility] [address] [place], [address] Platelet countOrdered By: Lee Choudhury on 02-13-2025 Platelets (Bld) [#/Vol] 203 10*3/uL 150-450 [facility] Potassium measurement (mass/ volume)Ordered By: Tri Choudhury on 02-13-2025 Potassium (Unsp spec) [Mass/Vol] 4.3 mmol/L 3.3-5.1 [facility] RBC Auto (Bld) [#/Vol]Ordere d By: Tri Choudhury on 02-13-2025 RBC (Bld) [#/Vol] 4.98 10*6/uL 4.6-6.2 [facility] Screening total cholesterol/ high density lipoprotein (HDL) cholesterol ratioOrdered By: Tri Choudhury on 02-13-2025 Cholesterol.total/Chol esterol in HDL [Mass ratio] 3.01 {ratio} [facility] Serum creatinine measurement (mass/volume)Ordered By: Tri Choudhury on 02-13-2025 Creatinine [Mass/Vol] 0.95 mg/dL 0.70-1.20 [facility] Serum globulin measurementOr dered By: Tri Choudhury on 02-13-2025 Globulin (S) [Mass/Vol] 3.0 g/dL 2.2-4.2 [facility] Serum glucose measurement (m ass/volume)Ordered By: Tri Choudhury on 02-13-2025 Glucose [Mass/Vol] 101 mg/dL High 70-99 [facility] Serum or plasma alanine carrillo otransferase (ALT) measurementOrdered By: Tri Choudhury on 02-13-2025 ALT [Catalytic activity/Vol] 21 U/L <47 [facility] Serum or plasma albumin sammy urement (mass/volume)Ordered By: Tri Choudhury on 02-13-2025 Albumin [Mass/Vol] 3.9 g/dL 3.4-4.8 [facility] Serum or plasma albumin/glob ulin mass ratioOrdered By: Tri Choudhury on 02-13-2025 Albumin/Globulin [Mass ratio] 1.3 {ratio} 0.9-2.4 [facility] Serum or plasma alkaline sara sphatase measurementOrdered By: Tri Choudhury on 02-13-2025 ALP [Catalytic activity/Vol] 71 U/L 40-129 [facility] Serum or plasma calcium sammy urement (mass/volume)Ordered By: Tri Choudhury on 02-13-2025 Calcium [Mass/Vol] 8.8 mg/dL 7.6-11.0 [facility] Serum or plasma cholesterol in HDL measurement (mass/volume)Ordered By: Tri Choudhury on 02-13-2025 Cholesterol in HDL [Mass/Vol] 41 mg/dL >40 [facility] Comment on above: National Cholesterol Education Program (NCEP) guidelines:<40 mg/dL: Low HDL-cholesterol (major risk factor for CHD)>= 60 mg/dL: High HDL-cholesterol (negative risk factor for CHD)HDL-cholesterol is affected by a number of factors, e.g. smoking, exercise, hormones, sex and age. Serum or plasma cholesterol measurement (mass/volume)Ordered By: Tri Choudhury on 02-13-2025 Cholesterol [Mass/Vol] 124 mg/dL <201 [facility] Comment on above: Cholesterol level, D esirable <200 mg/dLBorderline high cholesterol 200-239 mg/dLHigh cholesterol >=240 mg/dLRecommendations of the NCEP Adult Treatment Panel for the following risk-cutoff thresholds for the [place] population. Serum or plasma urea nitroge n measurement (mass/volume)Ordered By: Tri Choudhury on 02-13-2025 Urea nitrogen [Mass/Vol] 21 mg/dL High 4-19 [facility] Sodium levelOrdered By: Matt Choudhury on 02-13-2025 Sodium [Moles/Vol] 138 mmol/L 133-145 [facility] Total proteinOrdered By: Rick Choudhury on 02-13-2025 Protein [Mass/Vol] 6.8 g/dL 5.9-8.4 [facility] Triglycerides measurementOrd ered By: Tri Choudhury on 02-13-2025 Triglyceride [Mass/Vol] 59 mg/dL <199 [facility] Comment on above: The drugs N-Acetylcy steine and Metamizole may falsely depress this assay. Normal range: <150 mg/dLBorderline High: 150-199 mg/dLHigh: 200-499 mg/dLVery High: >500 mg/dL White blood cell (WBC) count Ordered By: Tri Choudhury on 02-13-2025 WBC (Bld) [#/Vol] 5.6 10*3/uL 4.4-11.0 [facility] Pulmonary Visit Reporton Pulmonary Visit Report [facility] [place] [address] [place] [address] OFFICE VISIT Date of Service: 10/10/24 MR#: [id number] Acct: [id number] Name: GUSTAVO CERDA Rep #: [id number] : 1960 Provider: Justa Alba NP Age/Sex: 64/M Location: [facility].PMW Status: Signed Assessment and Plan Assessment and [...] aches. He is now following with a extension course counselor and is exercising daily. He has decreased [...] 1 Y FU Chief Complaint: abdominal pain Birth Attendant Required: No RONY Vendor: [employer] Accompanied by: Self Allergies No Known Allergies Allergy (Verified 10/10/24 09:54) Medications ???Medication ???Instructions ???Recorded ???Confirmed ???Type magnesium 250 mg tablet 250 mg PO DAILY supplement 03/09/22 10/10/24 History omega 8-evr-hfx-fish oil 300 1 cap PO DAILY supplement [...] and s (more content not included)... Normal [facility] Absolute lymphocyte countOrd ered By: Donya Greenfield on 09-29-2023 Lymphocytes Auto (Unsp spec) [#/Vol] 1.81 10*3/uL 0.83-4.51 [facility] Automated lymphocyte count a s percentage of total leukocytesOrdered By: Donya Greenfield on 09-29-2023 Lymphocytes/100 WBC Auto (Unsp spec) 23.0 % 19-41 [facility] Basophil percentageOrdered B y: Donya Greenfield on 09-29-2023 Basophils/100 WBC (Bld) 0.4 % 0-1 [facility] Bilirubin [Mass/Vol] 1.00 mg/dL 0.20-1.00 [facility] Comment on above: For patients on eltr ombopag therapy, use of Dimension [place] TBIL is not recommended. Chloride [Moles/Vol] 108 mmol/L 98-107 [facility] Cholesterol [Mass/Vol] 134 mg/dL <200 [facility] Comment on above: <200 mg/dL Desirable 200-240 mg/dL Borderline >240 mg/dL High Risk Eosinophils/100 WBC (Bld) 2.3 % 0-5 [facility] Glucose [Mass/Vol] 112 mg/dL 74-106 [facility] Comment on above: Fasting Glucose resu lt from 100 to 125 mg/dL suggests IMPAIRED HOMEOSTASIS per A.D.A. criteria. Hemoglobin (Bld) [Mass/Vol] 14.3 g/dL 13.0-16.5 [facility] Monocytes/100 WBC (Bld) 8.9 % 0-10 [facility] Neutrophils (Bld) [#/Vol] 5.1 10*3/uL 2.0-7.7 [facility] Neutrophils/100 WBC (Bld) 65.1 % 47-70 [facility] Potassium [Moles/Vol] 4.2 mmol/L 3.5-5.1 [facility] Protein [Mass/Vol] 7.4 g/dL 6.4-8.2 [facility] Sodium [Moles/Vol] 137 mmol/L 136-145 [facility] Triglyceride [Mass/Vol] 65 mg/dL <199 [facility] Comment on above: The drugs N-Acetylcy steine and Metamizole may falsely depress this assay.Serum Triglycerides Reference Interval Normal <150 mg/dL Borderline high 150 - 199 mg/dL High 200 - 499 mg/dL Very High > or = 500 mg/dL WBC (Bld) [#/Vol] 7.9 10*3/uL 4.4-11.0 [facility] Determination of erythrocyte mean corpuscular volume (MCV)Ordered By: Donya Greenfield on 09-29-2023 MCV (RBC) [Entitic vol] 87.3 fL 80-94 [facility] Erythrocyte distribution wid th ratioOrdered By: Donyawilliam Greenfield on 09-29-2023 Erythrocyte distribution width (RBC) [Ratio] 14.6 % 11.6-14.6 [facility] Erythrocyte distribution wid th standard deviationOrdered By: Donya Greenfield on 09-29-2023 Erythrocyte distribution width (RBC) [Entitic vol] 46.4 fL 35.1-43.9 [facility] Hematocrit Auto (Bld) [Volum e fraction]Ordered By: Donya Greenfield on 09-29-2023 Hematocrit (Bld) [Volume fraction] 43.4 % 40-54 [facility] Immature granulocytes/100 WB C Auto (Bld)Ordered By: Donya Greenfield on 09-29-2023 Immature granulocytes/100 WBC (Bld) 0.300 % 0.0-0.9 [facility] Comment on above: IG% - Immature Granu locytes (promyelocytes, myelocytes and metamyelocytes) > 1% indicates that a LEFT SHIFT is Present. Laboratory - Chemistry and C hemistry - challengeOrdered By: Donya Greenfield on 09-29-2023 Albumin/Globulin [Mass ratio] 0.8 {ratio} 0.9-2.4 [facility] ALP [Catalytic activity/Vol] 83 U/L 45-117 [facility] ALT [Catalytic activity/Vol] 25 U/L 16-61 [facility] Cholesterol in HDL (Body fld) [Mass/Vol] 46 mg/dL >40 [facility] Comment on above: The drugs N-Acetylcy steine and Metamizole may falsely depress this assay. Reference Range HDL <40 mg/dL Low HDL Cholesterol HDL >or= 60 mg/dL High HDL Cholesterol Cholesterol in LDL (Body fld) [Moles/Vol] 75 mg/dL 0-130 [facility] Cholesterol in VLDL Calc [Moles/Vol] 13 mg/dL 5-40 [facility] CO2 [Moles/Vol] 27.0 mmol/L 21.0-32.0 [facility] Globulin (S) [Mass/Vol] 4.2 g/dL 2.2-4.2 [facility] Urea nitrogen/Creatinine [Mass ratio] 17.2 mg/mg 10-20 [facility] Laboratory - Hematology and Cell countsOrdered By: Donya Greenfield on 09-29-2023 MCH (RBC) [Entitic mass] 28.8 pg 27.0-32.0 [facility] MCHC (RBC) [Mass/Vol] 32.9 g/dL 32-36 [facility] Nucleated RBC/100 WBC (Bld) [Ratio] 0 % 0-5 [facility] Platelets (Bld) [#/Vol] 335 10*3/uL 150-450 [facility] No Panel InformationOrdered By: Donya Greenfield on 09-29-2023 Estimated GFR (MDRD) Amer 123 mL/min >60 [facility] Comment on above: GFR Calc Estimated GFR (MDRD) Non-Af Amer 102 mL/min >60 [facility] Comment on above: Non- GFR Calc Platelet mean volume Kevin-Ec ker (Bld) [Entitic vol]Ordered By: Donya Greenfield on 09-29-2023 Platelet mean volume (Bld) [Entitic vol] 8.6 fL 6.2-12.0 [facility] RBC Auto (Bld) [#/Vol]Ordere d By: Donya Greenfield on 09-29-2023 RBC (Bld) [#/Vol] 4.97 10*6/uL 4.6-6.2 [facility] Serum or plasma calcium sammy urement (mass/volume)Ordered By: Donya Greenfield on 09-29-2023 Calcium [Mass/Vol] 9.2 mg/dL 8.5-10.1 [facility] Serum or plasma creatinine m easurement (mass/volume)Ordered By: Donya Greenfield on 09-29-2023 Creatinine [Mass/Vol] 0.82 mg/dL 0.70-1.30 [facility] Comment on above: The validity of the calculated GFR & GFRAA in patients over 70 years has not been determined. Clinical correlation is essential. Serum or plasma urea nitroge n measurement (mass/volume)Ordered By: Donya Greenfield on 09-29-2023 Urea nitrogen [Mass/Vol] 14 mg/dL 7-18 [facility] Thin prep Papanicolaou smear with manual screeningOrdered By: Donya Greenfield on 09-29-2023 Thin prep Papanicolaou smear with manual screening 3.2 g/dL 3.2-5.0 [facility] Thin prep Papanicolaou smear with manual screening 16 U/L 15-37 [facility] Thin prep Papanicolaou smear with manual screening 2 5-15 [facility] XR ERCP BILIARY AND PANCREAT IC [...] 04/06/2023 1:22:33 PM Ordering Provider: PAULA Sahni [facility] ([place]) .Auto Diffon 03-31-2023 Basophil, Absolute 0.1 10 3/mcL Normal 0.0-0.3 [facility] Comment on above: Performed By: #### C BC, ADIFF, ANEU, HFP, CMP, GFR #### [address] [address] Basophils/100 WBC (Bld) 1.1 % Normal 0.0-2.5 [facility] ([place]) Comment on above: Performed By: #### C BC, ADIFF, ANEU, HFP, CMP, GFR #### [address] [address] Eosinophil, Absolute 0.2 10 3/mcL Normal 0.0-0.7 [facility] ([place]) Comment on above: Performed By: #### C BC, ADIFF, ANEU, HFP, CMP, GFR #### [address] [address] Eosinophils/100 WBC (Bld) 4.6 % Normal 0.0-6.0 [facility] ([place]) Comment on above: Performed By: #### C BC, ADIFF, ANEU, HFP, CMP, GFR #### [address] [address] Lymphocyte, Absolute 1.4 10 3/mcL Normal 0.9-4.3 [facility] ([place]) Comment on above: Performed By: #### C BC, ADIFF, ANEU, HFP, CMP, GFR #### [address] [address] Lymphocytes/100 WBC (Bld) 31.6 % Normal 20.0-40.0 [facility] ([place]) Comment on above: Performed By: #### C BC, ADIFF, ANEU, HFP, CMP, GFR #### [address] [address] Monocyte, Absolute 0.4 10 3/mcL Normal 0.1-1.4 [facility] ([place]) Comment on above: Performed By: #### C BC, ADIFF, ANEU, HFP, CMP, GFR #### [address] [address] Monocytes/100 WBC (Bld) 9.8 % Normal 2.0-13.0 [facility] ([place]) Comment on above: Performed By: #### C BC, ADIFF, ANEU, HFP, CMP, GFR #### [address] [address] Neutrophils/100 WBC (Bld) 52.9 % Normal 50.0-75.0 [facility] ([place]) Comment on above: Performed By: #### C BC, ADIFF, ANEU, HFP, CMP, GFR #### [address] [address] .GFRon 03-31-2023 GFR Non- >60 Normal [facility] ([place]) Comment on above: Result Comment: GFR Population [...] BC, ADIFF, ANEU, HFP, CMP, GFR #### [address] [address] GFR >60 Normal [facility] ([place] Comment on above: Result Comment: GFR Population [...] BC, ADIFF, ANEU, HFP, CMP, GFR #### [address] [address] .NEUABSon 03-31-2023 Neutrophil, Absolute 2.4 10 3/mcL Normal 2.3-8.1 [facility] ([place]) Comment on above: Performed By: #### C BC, ADIFF, ANEU, HFP, CMP, GFR #### [address] [address] BMPon 03-31-2023 BUN/Creatinine Ratio 24.7 ratio High 10.0-22.0 [facility] ([place] Comment on above: Performed By: #### C BC, ADIFF, ANEU, HFP, CMP, GFR #### [address] [address] Calcium [Mass/Vol] 8.9 mg/dL Normal 8.7-10.4 [facility] ([place]) Comment on above: Performed By: #### C BC, ADIFF, ANEU, HFP, CMP, GFR #### [address] [address] Chloride [Moles/Vol] 106 mmol/L Normal 98-110 [facility] ([place] Comment on above: Performed By: #### C BC, ADIFF, ANEU, HFP, CMP, GFR #### [address] [address] CO2 [Moles/Vol] 28 mmol/L Normal 22-32 [facility] ([place]) Comment on above: Performed By: #### C BC, ADIFF, ANEU, HFP, CMP, GFR #### [address] [address] Creatinine [Mass/Vol] 0.81 mg/dL Normal 0.60-1.40 [facility] ([place]) Comment on above: Performed By: #### C BC, ADIFF, ANEU, HFP, CMP, GFR #### [place] [address] Electrolyte Balance 5.0 mEq/L Normal 4.0-15.0 [facility] ([place]) Comment on above: Performed By: #### C BC, ADIFF, ANEU, HFP, CMP, GFR #### [place] [address] Glucose [Mass/Vol] 118 mg/dL High 82-115 [facility] ([place]) Comment on above: Performed By: #### C BC, ADIFF, ANEU, HFP, CMP, GFR #### [place] [address] Potassium [Moles/Vol] 4.8 mmol/L Normal 3.5-5.0 [facility] ([place]) Comment on above: Performed By: #### C BC, ADIFF, ANEU, HFP, CMP, GFR #### [place] [address] Sodium [Moles/Vol] 139 mmol/L Normal 136-145 [facility] ([place]) Comment on above: Performed By: #### C BC, ADIFF, ANEU, HFP, CMP, GFR #### [place] [address] Urea nitrogen [Mass/Vol] 20.0 mg/dL Normal 8.0-22.0 [facility] ([place]) Comment on above: Performed By: #### C BC, ADIFF, ANEU, HFP, CMP, GFR #### [place] [address] CBCon 03-31-2023 Erythrocyte distribution width (RBC) [Ratio] 14.2 % Normal 11.5-15.5 [facility] ([place]) Comment on above: Performed By: #### C BC, ADIFF, ANEU, HFP, CMP, GFR #### [place] [id number] Hematocrit (Bld) [Volume fraction] 40.6 % Normal 40.0-52.0 [facility] ([place]) Comment on above: Performed By: #### C BC, ADIFF, ANEU, HFP, CMP, GFR #### [place] [address] Hgb 13.7 G/dL Normal 13.0-17.5 [facility] ([place]) Comment on above: Performed By: #### C BC, ADIFF, ANEU, HFP, CMP, GFR #### [place] [address] MCH (RBC) [Entitic mass] 30.5 pg Normal 27.0-33.0 [facility] ([place]) Comment on above: Performed By: #### C BC, ADIFF, ANEU, HFP, CMP, GFR #### [place] [address] MCHC 33.9 G/dL Normal 32.0-36.0 [facility] ([place]) Comment on above: Performed By: #### C BC, ADIFF, ANEU, HFP, CMP, GFR #### [place] [address] MCV (RBC) [Entitic vol] 90.1 fL Normal 81.0-100.0 [facility] ([place]) Comment on above: Performed By: #### C BC, ADIFF, ANEU, HFP, CMP, GFR #### [place] [id number] Platelet 219 10 3/mcL Normal 150-450 [facility] ([place]) Comment on above: Performed By: #### C BC, ADIFF, ANEU, HFP, CMP, GFR #### [place] [address] Platelet mean volume (Bld) [Entitic vol] 6.8 fL Normal 6.4-10.5 [facility] ([place]) Comment on above: Performed By: #### C BC, ADIFF, ANEU, HFP, CMP, GFR #### [place] [address] RBC 4.50 10 6/mcL Normal 4.50-6.00 [facility] ([place]) Comment on above: Performed By: #### C BC, ADIFF, ANEU, HFP, CMP, GFR #### [address] [address] WBC 4.5 10 3/mcL Normal 4.5-10.8 [facility] ([place]) Comment on above: Performed By: #### C BC, ADIFF, ANEU, HFP, CMP, GFR #### [address] [address] LABORATORYOrdered By: SYSTEM SYSTEM on 03-31-2023 Basophils [...] 0.7 10^3/mcL Workflow SS Eosinophils/100 WBC (Bld) 4.6 % Invalid Interpretation Code 0.0 - 6.0 % Workflow SS Erythrocyte distribution width (RBC) [Ratio] 14.2 % Invalid Interpretation Code 11.5 - 15.5 % Workflow SS GFR/1.73 sq M.predicted among blacks MDRD (S/P/Bld) [Vol rate/Area] ml/min/1.73sqm Invalid Interpretation Code Chemistry S Comment on above: Interpretive Data: [...] rate/Area] ml/min/1.73sqm Invalid Interpretation Code Chemistry S Comment on above: Interpretive Data: [...] 4.3 10^3/mcL Workflow SS Lymphocytes/100 WBC (Bld) 31.6 % Invalid Interpretation Code 20.0 - 40.0 % Workflow SS MCH (RBC) [Entitic mass] 30.5 pg Invalid Interpretation Code 27.0 - 33.0 pg Workflow SS MCHC 33.9 G/dL Invalid Interpretation [...] Current Meds Medication NameInstructionReason Calcium CAPSHealth Maintenance Mathews 3 CAPSTAKE DIRECTED.Health Maintenance amLODIPine Besylate 5 MG Oral TabletTAKE 1 TABLET DAILY.Hypertension Lisinopril 20 MG Oral TabletTAKE 1 TABLET DAILY.Hypertension Tylenol Extra Strength 500 MG Oral Tablet2 tablets by mouth every bedtime Vitals Vital Signs Recorded: 08Mar2023 10:24AMRecorded: 08Mar2023 10:23AM Tobacco Useb) No Falls Screening (Age 18+)a) No falls within the last year Pain Scale0 Ywfqebzeqbc29.1 F Heart Rate80 Xytfdydq152 Avzskckdr05 Kiehvz152 lb 4 oz BMI Xvcnosvovr34.98 kg/m2 BSA Calculated2.61 Signatures Electronically signed by : Chavez Richardson MD; Mar 08 2023 10:51AM EST (Author) Normal [facility] Tobacco Screening.on 023 Fall risk assessment a) No falls within the last year [facility] Work Phone: Tobacco use status CPHS b) No [facility] Work Phone: Chart Updateon 03-02-2023 [...] Mar 02 2023 8:47AM EST (Author) Normal [facility] CBCon 02-27-2023 Erythrocyte distribution width (RBC) [Ratio] 13.8 % Normal 11.5 - 14.5 [facility] Comment on above: Performed By: #### C BC #### [facility] [address] [place] [address] Hematocrit (Bld) [Volume fraction] 38.1 % Low 41.0 - 52.0 [facility] Comment on above: Performed By: #### C BC #### [facility] [address] [place] [address] Hemoglobin (Bld) [Mass/Vol] 13.0 g/dL Low 13.5 - 17.5 [facility] Comment on above: Performed By: #### C BC #### [facility] [address] [place] [address] MCHC (RBC) [Mass/Vol] 34.1 g/dL Normal 32.0 - 36.0 [facility] Comment on above: Performed By: #### C BC #### [facility] [address] [place] [address] MCV (RBC) [Entitic vol] 92 fL Normal 80 - 100 [facility] Comment on above: Performed By: #### C BC #### [facility] [address] [place] [address] NUCLEATED RBC 0.0 /100 WBC Normal 0.0-0.0 [facility] Comment on above: Performed By: #### C BC #### [facility] [address] [place] [address] Platelets (Bld) [#/Vol] 208 10*3/uL Normal 150 - 450 [facility] Comment on above: Performed By: #### C BC #### [facility] [address] [place] [address] RBC 4.16 x10E12/L Low 4.50 - 5.90 [facility] Comment on above: Performed By: #### C BC #### [facility] [address] [place] [address] WBC (Bld) [#/Vol] 7.8 10*3/uL Normal 4.4 - 11.3 [facility] Comment on above: Performed By: #### C BC #### [facility] [address] [place] [address] Daily Progress Note-Surgical Oncologyon 02-27-2023 Daily Progress Note-Surgical Oncology This report has been cancelled. Normal [facility] HEPATIC FUNCTION PANELon Albumin [Mass/Vol] 3.4 g/dL Normal 3.4 - 5.0 [facility] Comment on above: Performed By: #### H EPFP #### [facility] [address] [place] [address] Performed By: #### R ENAL #### [facility] [address] [place] [address] ALP [Catalytic activity/Vol] 61 U/L Normal 33 - 136 [facility] Comment on above: Performed By: #### H EPFP #### [facility] [address] [place] [address] ALT [Catalytic activity/Vol] 33 U/L Normal 10 - 52 [facility] Comment on above: Result Comment: Lorna ents treated with Sulfasalazine may generate falsely decreased results for ALT. Performed By: #### H EPFP #### [facility] [address] [place] [address] AST [Catalytic activity/Vol] 19 U/L Normal 9 - 39 [facility] Comment on above: Performed By: #### H EPFP #### [facility] [address] [place] [address] Bilirubin [Mass/Vol] 1.0 mg/dL Normal 0.0 - 1.2 [facility] Comment on above: Performed By: #### H EPFP #### [facility] [address] [place] [address] Bilirubin.indirect [Mass/Vol] 0.2 mg/dL Normal 0.0 - 0.3 [facility] Comment on above: Performed By: #### H EPFP #### [facility] [address] [place] [address] Protein [Mass/Vol] 5.7 g/dL Low 6.4 - 8.2 [facility] Comment on above: Performed By: #### H EPFP #### [facility] [address] [place] [address] Hepatic Function Panelon ALP [Catalytic activity/Vol] 61 U/L 33 - 136 XZ-Ntchadh-[facility]j [facility] 2100 Work Phone: ALT With P-5'-P [Catalytic activity/Vol] 33 U/L 10 - 52 QR-Jduphzb-Mc lwell 2100 Work Phone: Comment on above: Patients treated wit h Sulfasalazine may generate falsely decreased results for ALT. AST With P-5'-P [Catalytic activity/Vol] 19 U/L 9 - 39 PI-Jazrkjt-Ed lwell 2100 Work Phone: Bilirubin [Mass/Vol] 1.0 mg/dL 0.0 - 1.2 MG-S urgery-Han l[facility] 2099 Work Phone: Bilirubin.direct [Mass/Vol] 0.2 mg/dL 0.0 - 0.3 ZL-Prvtpbl-Mp lwell 2099 Work Phone: Protein [Mass/Vol] 5.7 g/dL below low threshold 6.4 - 8.2 AS-Pquqorj-Lw lwell 2099 Work Phone: Laboratory - Hematology and Cell countson 02-27-2023 Erythrocyte distribution width (RBC) [Ratio] 13.8 % See Below QJ-Loqehpm-Ua lwell 2099 Work Phone: Comment on above: Reference Range: 11. 5 - 14.5 Hematocrit (Bld) [Volume fraction] 38.1 % below low threshold See Below IN-Rshvagh-Xt lwell 2099 Work Phone: Comment on above: Reference Range: 41. 0 - 52.0 Hemoglobin (Bld) [Mass/Vol] 13.0 g/dL below low threshold See Below NL-Kkcmuua-Di lwell 2099 Work Phone: Comment on above: Reference Range: 13. 5 - 17.5 MCHC (RBC) [Mass/Vol] 34.1 g/dL See Below MG- Surgery-Han [facility] 2099 Work Phone: Comment on above: Reference Range: 32. 0 - 36.0 MCV (RBC) [Entitic vol] 92 fL 80 - 100 SP-Oglayhj-Yn lwell 2099 Work Phone: Platelets (Bld) [#/Vol] 208 10*3/uL 150 - 450 JS-Hojotyy-Dp lwell 2099 Work Phone: RBC (Bld) [#/Vol] 4.16 {x10E12/L} below low threshold See Below KJ-Ljmfnec-Hv lwell 2099 Work Phone: Comment on above: Reference Range: 4.5 0 - 5.90 WBC (Bld) [#/Vol] 7.8 10*3/uL 4.4 - 11.3 MG-Karsten sharifa-Han [facility] 2100 Work Phone: No Panel Informationon 02-27 0.0 {/100_WBC} 0.0-0.0 MG-Surgery -Han [facility] 2100 Work Phone: RENAL FUNCTION PANELon 02-27 Anion gap [Moles/Vol] 15 mmol/L Normal 10 - 20 [facility] Comment on above: Performed By: #### R ENAL #### [place] [address] [place] [address] Calcium [Mass/Vol] 8.3 mg/dL Low 8.6 - 10.6 [facility] Comment on above: Performed By: #### R ENAL #### [facility] [address] [place] [address] Chloride [Moles/Vol] 102 mmol/L Normal 98 - 107 [facility] Comment on above: Performed By: #### R ENAL #### [facility] [address] [place] [address] Creatinine [Mass/Vol] 0.83 mg/dL Normal 0.50 - 1.30 [facility] Comment on above: Performed By: #### R ENAL #### [facility] [address] [place] [address] eGFR MALE >90 Normal >90 [facility] Comment on above: Result Comment: CALC ULATIONS OF ESTIMATED GFR ARE PERFORMED USING THE 2020 CKD-EPI STUDY REFIT EQUATION WITHOUT THE RACE VARIABLE FOR THE IDMS-TRACEABLE CREATININE METHODS. https://jasn.asnjournals.org/content//ASN.14131 35029 Performed By: #### R ENAL #### [facility] [address] [place] [address] Glucose [Mass/Vol] 97 mg/dL Normal 74 - 99 [facility] Comment on above: Performed By: #### R ENAL #### [facility] [address] [place] [address] HCO3 (Bld) [Moles/Vol] 23 mmol/L Normal 21 - 32 [facility] Comment on above: Performed By: #### R ENAL #### [facility] [address] [place] [address] Phosphate [Mass/Vol] 3.0 mg/dL Normal 2.5 - 4.9 [facility] Comment on above: Result Comment: The performance characteristics of phosphorus testing in heparinized plasma have been validated by the individual laboratory site where testing is performed. Testing on heparinized plasma is not approved by the FDA; however, such approval is not necessary. Performed By: #### R ENAL #### [facility] [address] [place] [address] Potassium [Moles/Vol] 4.0 mmol/L Normal 3.5 - 5.3 [facility] Comment on above: Performed By: #### R ENAL #### [facility] [address] [place] [address] Sodium [Moles/Vol] 136 mmol/L Normal 136 - 145 [facility] Comment on above: Performed By: #### R ENAL #### [facility] [address] [place] [address] Urea nitrogen [Mass/Vol] 13 mg/dL Normal 6 - 23 [facility] Comment on above: Performed By: #### R ENAL #### [facility] [address] [place] [address] Renal Function Panelon 02-27 Albumin BCP dye [Mass/Vol] 3.4 g/dL 3.4 - 5.0 SC-Zkvihsj-Vb lwell 2100 Work Phone: Anion gap [Moles/Vol] 15 mmol/L 10 - 20 MG- Surgery-[facility] 2100 Work Phone: Calcium [Mass/Vol] 8.3 mg/dL below low threshold 8.6 - 10.6 YZ-Yqtifih-Xp lwell 2100 Work Phone: Chloride [Moles/Vol] 102 mmol/L 98 - 107 MG-S urgery-[facility] 2100 Work Phone: CO2 [Moles/Vol] 23 mmol/L 21 - 32 MG-Surger y-Han l[facility] 2099 Work Phone: Creatinine [Mass/Vol] 0.83 mg/dL See Below MG- Surgery-[facility] 2099 Work Phone: Comment on above: Reference Range: 0.5 0 - 1.30 Glucose [Mass/Vol] 97 mg/dL 74 - 99 MG-Karsten sharifa-Han [facility] 2099 Work Phone: Phosphate [Mass/Vol] 3.0 mg/dL 2.5 - 4.9 MG-S urgery-[facility] 2099 Work Phone: Comment on above: The performance dimple acteristics of phosphorus testing in heparinized plasma have been validated by the individual laboratory site where testing is performed. Testing on heparinized plasma is not approved by the FDA; however, such approval is not necessary. Potassium [Moles/Vol] 4.0 mmol/L 3.5 - 5.3 MG- Surgery-[facility] 2099 Work Phone: Sodium [Moles/Vol] 136 mmol/L 136 - 145 MG-Karsten sharifa-[facility] 2099 Work Phone: Urea nitrogen [Mass/Vol] 13 mg/dL 6 - 23 LH-Uyyiwuc-Ap lwell 2099 Work Phone: Renal Function Panel >90 >90 MG-S urgery-[facility] 2099 Work Phone: Comment on above: CALCULATIONS OF NITHYA MATED GFR ARE PERFORMED USING THE 2020 CKD-EPI STUDY REFIT EQUATION WITHOUT THE RACE VARIABLE FOR THE IDMS-TRACEABLE CREATININE METHODS.https://jasn.asnjournals.org/content/early//A SN.0644324280 BILIRUBIN,DIRECTon 3 Bilirubin.indirect [Mass/Vol] 0.4 mg/dL High 0.0 - 0.3 [facility] Comment on above: Performed By: #### C MP #### [facility] [address] [place] [address] Bilirubin, Serum Direct - Co njugatedon 02-26-2023 Bilirubin.direct [Mass/Vol] 0.4 mg/dL above high threshold 0.0 - 0.3 OK-Wubzczc-Iq lwell 2100 Work Phone: CBCon 02-26-2023 Erythrocyte distribution width (RBC) [Ratio] 14.1 % Normal 11.5 - 14.5 [facility] Comment on above: Performed By: #### C BC #### [facility] [address] [place] [address] Hematocrit (Bld) [Volume fraction] 39.4 % Low 41.0 - 52.0 [facility] Comment on above: Performed By: #### C BC #### [facility] [address] [place] [address] Hemoglobin (Bld) [Mass/Vol] 13.0 g/dL Low 13.5 - 17.5 [facility] Comment on above: Performed By: #### C BC #### [facility] [address] [place] [address] MCHC (RBC) [Mass/Vol] 33.0 g/dL Normal 32.0 - 36.0 [facility] Comment on above: Performed By: #### C BC #### [facility] [address] [place] [address] MCV (RBC) [Entitic vol] 93 fL Normal 80 - 100 [facility] Comment on above: Performed By: #### C BC #### [facility] [address] [place] [address] NUCLEATED RBC 0.0 /100 WBC Normal 0.0-0.0 [facility] Comment on above: Performed By: #### C BC #### [facility] [address] [place] [address] Platelets (Bld) [#/Vol] 208 10*3/uL Normal 150 - 450 [facility] Comment on above: Performed By: #### C BC #### [facility] [address] [place] [address] RBC 4.23 x10E12/L Low 4.50 - 5.90 [facility] Comment on above: Performed By: #### C BC #### [facility] [address] [place] [address] WBC (Bld) [#/Vol] 8.2 10*3/uL Normal 4.4 - 11.3 [facility] Comment on above: Performed By: #### C BC #### [facility] [address] [place] [address] COMPREHENSIVE PANELon 2022 Albumin [Mass/Vol] 3.4 g/dL Normal 3.4 - 5.0 [facility] Comment on above: Performed By: #### C MP #### [facility] [address] [place] [address] ALP [Catalytic activity/Vol] 64 U/L Normal 33 - 136 [facility] Comment on above: Performed By: #### C MP #### [facility] [address] [place] [address] ALT [Catalytic activity/Vol] 45 U/L Normal 10 - 52 [facility] Comment on above: Result Comment: Lorna ents treated with Sulfasalazine may generate falsely decreased results for ALT. Performed By: #### C MP #### [facility] [address] [place] [address] Anion gap [Moles/Vol] 13 mmol/L Normal 10 - 20 [facility] Comment on above: Performed By: #### C MP #### [facility] [address] [place] [address] AST [Catalytic activity/Vol] 30 U/L Normal 9 - 39 [facility] Comment on above: Performed By: #### C MP #### [facility] [address] [place] [address] Bilirubin [Mass/Vol] 2.0 mg/dL High 0.0 - 1.2 [facility] Comment on above: Performed By: #### C MP #### [facility] [address] [place] [address] Calcium [Mass/Vol] 8.1 mg/dL Low 8.6 - 10.6 [facility] Comment on above: Performed By: #### C MP #### [facility] [address] [place] [address] Chloride [Moles/Vol] 101 mmol/L Normal 98 - 107 [facility] Comment on above: Performed By: #### C MP #### [facility] [address] [place] [address] Creatinine [Mass/Vol] 0.80 mg/dL Normal 0.50 - 1.30 [facility] Comment on above: Performed By: #### C MP #### [facility] [address] [place] [address] eGFR MALE >90 Normal >90 [facility] Comment on above: Result Comment: CALC ULATIONS OF ESTIMATED GFR ARE PERFORMED USING THE 2020 CKD-EPI STUDY REFIT EQUATION WITHOUT THE RACE VARIABLE FOR THE IDMS-TRACEABLE CREATININE METHODS. https://jasn.asnjournals.org/content/early//ASN.08390 52900 Performed By: #### C MP #### [facility] [address] [place] [address] Glucose [Mass/Vol] 103 mg/dL High 74 - 99 [facility] Comment on above: Performed By: #### C MP #### [facility] [address] [place] [address] HCO3 (Bld) [Moles/Vol] 24 mmol/L Normal 21 - 32 [facility] Comment on above: Performed By: #### C MP #### [facility] [address] [place] [address] Potassium [Moles/Vol] 4.0 mmol/L Normal 3.5 - 5.3 [facility] Comment on above: Performed By: #### C MP #### [facility] [address] [place] [address] Protein [Mass/Vol] 5.6 g/dL Low 6.4 - 8.2 [facility] Comment on above: Performed By: #### C MP #### [facility] [address] [place] [address] Sodium [Moles/Vol] 134 mmol/L Low 136 - 145 [facility] Comment on above: Performed By: #### C MP #### [facility] [address] [place] [address] Urea nitrogen [Mass/Vol] 14 mg/dL Normal 6 - 23 [facility] Comment on above: Performed By: #### C MP #### [facility] [address] [place] [address] Daily Progress Note-Anesthes ia - Painon 02-26-2023 [...] x4. Objective Data: Objective Information: T PRBPMAPSpO2 [id number]/7393% Date/Time02/26 13: 13: 13: 13: 13:48 Range(36.1C [...] ----- Mn/Dy/Year TimeIntakeOutputNet Feb 26, 2023 2:00 [id number] Feb 26, 2023 6:00 [id number] Feb 25, 2023 10:00 [id number] The Intake and Output Totals for the last 24 hours are: IntakeOutputNet [id number] Physical Exam Narrative: Physical Exam: Physical Exam: [...] at this [place] [phone] ph [phone] Attestation: Note Completion: I am a: Resident/Fellow [...] the note. I personally evaluated the patient [id number] Electronic Signatures: Patricia Blue (Resident)) (Signed 26-Feb-2023 14:19) Authored: Service, Subjective Data, Objective Data, Assessment and Plan, Note Completion Adele Marcelino) (Signed 28-Feb-2023 08:11) Authored: Note Completion Co-Signer: Service, Subjective Data, Objective Data, Assessment and Plan, Note Completion Last Updated: 28-Feb-2023 08:11 by Adele Marcelino) Normal [facility] Daily Progress Note-Surgical Oncologyon 02-26-2023 Daily Progress Note-Surgical Oncology Service: Surgical Oncology Subjective Data: ABIODUN CERDA is a 62 year old Male who is Hospital Day # 3 and POD #2 for Open Remnant Choly with 'Gram. NAEO. Denies chest pain, shortness of breath, nuasea, vomiting. Objective Data: Objective Information: T PRBPMAPSpO2 [id number]/7393% Date/Time02/26 13: 13: 13: 13: 13:48 Range(36.1C [...] ----- Mn/Dy/Year TimeIntakeOutputNet Feb 26, 2023 2:00 [id number] Feb 26, 2023 6:00 [id number] Feb 25, 2023 10:00 [id number] The Intake and Output Totals for the last 24 hours are: IntakeOutputNet [id number] Physical Exam Narrative: Physical Exam: General: Appears [...] MD General Surgery PGY2 [facility] [id number] Attestation: Note Completion: I am a: Resident/Fellow [...] the note. I personally evaluated the patient [id number] Electronic Signatures: Fritz Zabala) (Signed 28-Feb-2023 14:35) Authored: Note Completion Co-Signer: Service, Subjective Data, Objective Data, Assessment and Plan, Note Completion Chacha Yeung (Resident)) (Signed 17-Adelso-2023 16:48) Authored: Service, Subjective Data, Objective Data, Assessment and Plan, Note Completion Last Updated: 28-Feb-2023 14:35 by Fritz Zabala) Normal [facility] EMR ADDONon 02-26-2023 ADDON CONFIRMATION REQUEST REC'D Normal [facility] Comment on above: Performed By: #### C MP #### [facility] [address] [place] [address] Laboratory - Chemistry and C hemistry - challengeon 02-26-2023 Albumin BCP dye [Mass/Vol] 3.4 g/dL 3.4 - 5.0 VY-Nrsugje-Wm lwell 2100 Work Phone: ALP [Catalytic activity/Vol] 64 U/L 33 - 136 RA-Uzarkdn-Ve lwell 2100 Work Phone: ALT With P-5'-P [Catalytic activity/Vol] 45 U/L 10 - 52 UJ-Hkbtded-Pf lwell 2100 Work Phone: Comment on above: Patients treated wit h Sulfasalazine may generate falsely decreased results for ALT. Anion gap [Moles/Vol] 13 mmol/L 10 - 20 MG- Surgery-Han lwell 2100 Work Phone: AST With P-5'-P [Catalytic activity/Vol] 30 U/L 9 - 39 XW-Rwjantq-Et lwell 2100 Work Phone: Bilirubin [Mass/Vol] 2.0 mg/dL above high threshold 0.0 - 1.2 LK-Fjzhlox-Rh lwell 2100 Work Phone: Calcium [Mass/Vol] 8.1 mg/dL below low threshold 8.6 - 10.6 QQ-Foifmrj-Oa lwell 2100 Work Phone: Chloride [Moles/Vol] 101 mmol/L 98 - 107 MG-S urgery-Han lwell 2100 Work Phone: CO2 [Moles/Vol] 24 mmol/L 21 - 32 MG-Surger y-Han lwell 2100 Work Phone: Creatinine [Mass/Vol] 0.80 mg/dL See Below MG- Surgery-Han lwell 2099 Work Phone: Comment on above: Reference Range: 0.5 0 - 1.30 Glucose [Mass/Vol] 103 mg/dL above high threshold 74 - 99 SP-Qlidnow-Er lwell 2099 Work Phone: Potassium [Moles/Vol] 4.0 mmol/L 3.5 - 5.3 MG- Surgery-Han lwell 2099 Work Phone: Protein [Mass/Vol] 5.6 g/dL below low threshold 6.4 - 8.2 WS-Htqswkh-Ka lwell 2099 Work Phone: Sodium [Moles/Vol] 134 mmol/L below low threshold 136 - 145 QH-Smzctve-Vd lwell 2099 Work Phone: Urea nitrogen [Mass/Vol] 14 mg/dL 6 - 23 NU-Zdakzir-Zx lwell 2099 Work Phone: Laboratory - Hematology and Cell countson 02-26-2023 Erythrocyte distribution width (RBC) [Ratio] 14.1 % See Below HJ-Jsuszjf-Fn lwell 2099 Work Phone: Comment on above: Reference Range: 11. 5 - 14.5 Hematocrit (Bld) [Volume fraction] 39.4 % below low threshold See Below SV-Hspxpnn-Vc lwell 2099 Work Phone: Comment on above: Reference Range: 41. 0 - 52.0 Hemoglobin (Bld) [Mass/Vol] 13.0 g/dL below low threshold See Below HK-Ijlpacp-Ld lwell 2099 Work Phone: Comment on above: Reference Range: 13. 5 - 17.5 MCHC (RBC) [Mass/Vol] 33.0 g/dL See Below MG- Surgery-Han lwell 2099 Work Phone: Comment on above: Reference Range: 32. 0 - 36.0 MCV (RBC) [Entitic vol] 93 fL 80 - 100 HJ-Syhyuma-Xd lwell 2099 Work Phone: Platelets (Bld) [#/Vol] 208 10*3/uL 150 - 450 YU-Qhzemou-Qj lwell 2099 Work Phone: RBC (Bld) [#/Vol] 4.23 {x10E12/L} below low threshold See Below LR-Freqdyc-Lv lwell 2099 Work Phone: Comment on above: Reference Range: 4.5 0 - 5.90 WBC (Bld) [#/Vol] 8.2 10*3/uL 4.4 - 11.3 MG-Karsten sharifa-Han lwell 2099 Work Phone: MAGNESIUMon 02-26-2023 Magnesium [Mass/Vol] 1.91 mg/dL Normal 1.60 - 2.40 [facility] Comment on above: Performed By: #### M G #### [facility] [address] [place] [address] Magnesium, Serumon 3 Magnesium [Mass/Vol] 1.91 mg/dL See Below MG-S urgery-Han lwell 2099 Work Phone: Comment on above: Reference Range: 1.6 0 - 2.40 No Panel Informationon 02-26 >90 >90 JB-Lbpfsri-Yo lwell 2099 Work Phone: Comment on above: CALCULATIONS OF NITHYA MATED GFR ARE PERFORMED USING THE 2020 CKD-EPI STUDY REFIT EQUATION WITHOUT THE RACE VARIABLE FOR THE IDMS-TRACEABLE CREATININE METHODS.https://jasn.asnjournals.org/content/early//A SN.3492380646 0.0 {/100_WBC} 0.0-0.0 MG-Surgery -Han lwell 2099 Work Phone: Admission Risk Screen - [...] AlertFor Ebola-like Symptoms: Isolate Patient and Notify Provider/Nurse Office For Contact: Notify Provider/Nurse Office Advance Directive: Advance Directive/DNRno Advance Directive Information [...] Learning Preferencesverbal instruction Cultural Considerationsnone Developmental Considerationsnone Buddhism Considerationsnone Learning Assessment (Other Learner): Other learner availableno Depression Screen: During the past month, have you often been bothered by feeling down, depressed or hopelessno During the past month, have you often had little interest or pleasure in doing thingsno Have you had any thoughts of harming anyone elseno [place] Suicide: Risk Screen Not Applicable/Able to Answerable to be screened In the Past Month: Have you wished you were or could go to sleep and not wake upno In the Past Month: Have you had any actual thoughts of killing yourselfno Lifetime: Have you ever done, started to do, or prepared to do anything to end your lifeno [place] Suicide Risknegative Adult Nutrition Screen: Have you [...] Spiritual Screen: Are there any cultural, spiritual, baptism practices/values/needs that are important for us to knowno CAGE: Is this an injured patient at a Trauma Center ([facility]/[place] /[place]): no Vaccinations: Vaccination - Influenza Vaccination Screen: Is it flu season (between and December 10)No Vaccination - Pneumonia Vaccination Screen: Patient has received a previous pneumonia vaccine:no/unknown... Immunocompetent persons with underlying chronic conditions or reside in penitentiary care facilitiesnone of these conditions Persons with Functional or Anatomic Asplenianone of these conditions Immunocompromised Personsnone of these conditions Pneumonia vaccine NOT indicated due to:patient/caregiver refusal at this time Zack: Skin - Zack Scale: B (more content not included)... Normal [facility] CBCon 02-25-2023 Erythrocyte distribution width (RBC) [Ratio] 14.1 % Normal 11.5 - 14.5 [facility] Comment on above: Performed By: #### H EPFP #### [facility] [address] [place] [address] Hematocrit (Bld) [Volume fraction] 42.4 % Normal 41.0 - 52.0 [facility] Comment on above: Performed By: #### H EPFP #### [facility] [address] [place] [address] Hemoglobin (Bld) [Mass/Vol] 14.1 g/dL Normal 13.5 - 17.5 [facility] Comment on above: Performed By: #### H EPFP #### [facility] [address] [place] [address] MCHC (RBC) [Mass/Vol] 33.3 g/dL Normal 32.0 - 36.0 [facility] Comment on above: Performed By: #### H EPFP #### [facility] [address] [place] [address] MCV (RBC) [Entitic vol] 92 fL Normal 80 - 100 [facility] Comment on above: Performed By: #### H EPFP #### [facility] [address] [place] [address] NUCLEATED RBC 0.0 /100 WBC Normal 0.0-0.0 [facility] Comment on above: Performed By: #### H EPFP #### [facility] [address] [place] [address] Platelets (Bld) [#/Vol] 254 10*3/uL Normal 150 - 450 [facility] Comment on above: Performed By: #### H EPFP #### [facility] [address] [place] [address] RBC 4.61 x10E12/L Normal 4.50 - 5.90 [facility]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 [place] [id number] Hgb 13.4 G/dL Normal 13.0-17.5 [facility] ([place] Comment on above: Performed By: #### C BC, ADIFF, ANEU, HFP, CMP, GFR #### [place] [id number] MCH (RBC) [Entitic mass] 30.9 pg Normal 27.0-33.0 [facility] ([place] Comment on above: Performed By: #### C BC, ADIFF, ANEU, HFP, CMP, GFR #### [place] [address] MCHC 33.9 G/dL Normal 32.0-36.0 [facility] ([place] Comment on above: Performed By: #### C BC, ADIFF, ANEU, HFP, CMP, GFR #### [place] [address] MCV (RBC) [Entitic vol] 91.1 fL Normal 81.0-100.0 [facility] ([place] Comment on above: Performed By: #### C BC, ADIFF, ANEU, HFP, CMP, GFR #### [place] [address] Platelet 261 10 3/mcL Normal 150-450 [facility] ([place] Comment on above: Performed By: #### C BC, ADIFF, ANEU, HFP, CMP, GFR #### [place] [address] Platelet mean volume (Bld) [Entitic vol] 7.1 fL Normal 6.4-10.5 [facility] ([place] Comment on above: Performed By: #### C BC, ADIFF, ANEU, HFP, CMP, GFR #### [place] [address] RBC 4.33 10 6/mcL Low 4.50-6.00 [facility] ([place] Comment on above: Performed By: #### C BC, ADIFF, ANEU, HFP, CMP, GFR #### [place] [address] WBC 3.8 10 3/mcL Low 4.5-10.8 [facility] ([place] Comment on above: Performed By: #### C BC, ADIFF, ANEU, HFP, CMP, GFR #### [place] [address] CMPon 01-13-2023 BUN/Creatinine Ratio 17.2 ratio Normal 10.0-22.0 [facility] Comment on above: Performed By: #### C BC, ADIFF, ANEU, HFP, CMP, GFR #### [address] [address] Calcium [Mass/Vol] 9.0 mg/dL Normal 8.7-10.4 [facility] ([place] Comment on above: Performed By: #### C BC, ADIFF, ANEU, HFP, CMP, GFR #### [address] [address] Chloride [Moles/Vol] 109 mmol/L Normal 98-110 [facility] [place] Comment on above: Performed By: #### C BC, ADIFF, ANEU, HFP, CMP, GFR #### [place] [id number] CO2 [Moles/Vol] 23 mmol/L Normal 22-32 [facility] ([place]) Comment on above: Performed By: #### C BC, ADIFF, ANEU, HFP, CMP, GFR #### [place] [id number] Creatinine [Mass/Vol] 0.87 mg/dL Normal 0.60-1.40 [facility] ([place]) Comment on above: Performed By: #### C BC, ADIFF, ANEU, HFP, CMP, GFR #### [address] [address] Electrolyte Balance 8.0 mEq/L Normal 4.0-15.0 [facility] ([place]) Comment on above: Performed By: #### C BC, ADIFF, ANEU, HFP, CMP, GFR #### [address] [address] Glucose [Mass/Vol] 101 mg/dL Normal 82-115 [facility] ([place] Comment on above: Performed By: #### C BC, ADIFF, ANEU, HFP, CMP, GFR #### [address] [address] Potassium [Moles/Vol] 4.3 mmol/L Normal 3.5-5.0 [facility] ([place]) Comment on above: Performed By: #### C BC, ADIFF, ANEU, HFP, CMP, GFR #### [place] [id number] Sodium [Moles/Vol] 140 mmol/L Normal 136-145 [facility] ([place] Comment on above: Performed By: #### C BC, ADIFF, ANEU, HFP, CMP, GFR #### [place] [id number] Urea nitrogen [Mass/Vol] 15.0 mg/dL Normal 8.0-22.0 [facility] ([place]) Comment on above: Performed By: #### C BC, ADIFF, ANEU, HFP, CMP, GFR #### [address] [address] HFPon 01-13-2023 Bili Indirect 0.9 mg/dL Normal 0.1-10.0 [facility] ([place] Comment on above: Performed By: #### C BC, ADIFF, ANEU, HFP, CMP, GFR #### [place] [address] Albumin Level 3.0 G/dL Low 3.2-4.8 [facility] ([place] Comment on above: Performed By: #### C BC, ADIFF, ANEU, HFP, CMP, GFR #### [place] [id number] Albumin/Globulin [Mass ratio] 0.9 {ratio} Normal 0.9-1.6 [facility] ([place] Comment on above: Performed By: #### C BC, ADIFF, ANEU, HFP, CMP, GFR #### [address] [address] ALP [Catalytic activity/Vol] 177 U/L High 38-126 [facility] ([place] Comment on above: Performed By: #### C BC, ADIFF, ANEU, HFP, CMP, GFR #### [address] [address] ALT [Catalytic activity/Vol] 208 U/L High 12-55 [facility] ([place] Comment on above: Performed By: #### C BC, ADIFF, ANEU, HFP, CMP, GFR #### [address] [address] AST [Catalytic activity/Vol] 56 U/L High 8-34 [facility] ([place] Comment on above: Performed By: #### C BC, ADIFF, ANEU, HFP, CMP, GFR #### [place] [address] Bili Direct 1.4 mg/dL High 0.0-0.4 [facility] ([place] Comment on above: Result Comment: Use of this assay is not recommended for patients undergoing treatment with eltrombopag due to the potential for falsely elevated results. Performed By: #### C BC, ADIFF, ANEU, HFP, CMP, GFR #### [place] [address] Bili Total 2.30 mg/dL High 0.20-1.20 [facility] ([place] Comment on above: Result Comment: Use of this assay is not recommended for patients undergoing treatment with eltrombopag due to the potential for falsely elevated results. Performed By: #### C BC, ADIFF, ANEU, HFP, CMP, GFR #### [place] [address] Globulin 3.3 G/dL Normal 1.5-3.8 [facility] ([place] Comment on above: Performed By: #### C BC, ADIFF, ANEU, HFP, CMP, GFR #### [place] [address] Total Protein 6.3 G/dL Normal 5.7-8.2 [facility] ([place] Comment on above: Result Comment: No te - New Reference Range in effect 20 Performed By: #### C BC, ADIFF, ANEU, HFP, CMP, GFR #### [place] [address] LABORATORYOrdered By: SYSTEM SYSTEM on 01-13-2023 Basophils (Bld) [#/Vol] 0.0 103/mcL Invalid Interpretation Code 0.0 - 0.3 10^3/mcL AH Workflow SS Basophils/100 WBC (Bld) 0.6 % Invalid Interpretation Code 0.0 - 2.5 % AH Workflow SS Bili Indirect 0.9 mg/dL Invalid [...] % AH Workflow SS Hemoglobin (Bld) [Mass/Vol] 13.4 G/dL Invalid Interpretation Code 13.0 - 17.5 G/dL AH Workflow SS Lymphocytes (Bld) [#/Vol] 1.0 103/mcL Invalid Interpretation Code 0.9 - 4.3 10^3/mcL AH Workflow SS Lymphocytes/100 WBC (Bld) 25.8 % [...] Invalid Interpretation Code 2.3 - 8.1 10^3/mcL Workflow SS Neutrophils/100 WBC (Bld) 56.9 % Invalid Interpretation Code 50.0 - 75.0 % AH Workflow SS Platelet mean volume (Bld) [Entitic vol] 7.1 fL Invalid Interpretation Code 6.4 - 10.5 fL Workflow SS Platelets (Bld) [#/Vol] 261 103/mcL Invalid Interpretation Code 150 - 450 10^3/mcL Workflow SS Potassium [Moles/Vol] 4.3 mmol/L Invalid [...] Invalid Interpretation Code 10.0 - 22.0 ratio ADM SS WBC (Bld) [#/Vol] 3.8 103/mcL Invalid Interpretation Code 4.5 - 10.8 10^3/mcL Workflow SS Laboratory - Chemistry and C hemistry - challengeOrdered By: SYSTEM SYSTEM on 01-13-2023 Albumin BCP dye [Mass/Vol] 3.0 G/dL Invalid Interpretation Code 3.2 - 4.8 G/dL ADM SS Albumin/Globulin [Mass ratio] 0.9 {ratio} Invalid Interpretation Code 0.9 - 1.6 ratio AH ADM SS ALP [Catalytic activity/Vol] 177 U/L Invalid Interpretation Code 38 - 126 U/L AH ADM SS ALT No additional P-5'-P [Catalytic activity/Vol] 208 U/L Invalid Interpretation Code 12 - 55 U/L AH ADM SS AST [Catalytic activity/Vol] 56 U/L Invalid Interpretation Code 8 - 34 U/L AH ADM SS Bilirubin [Mass/Vol] 2.30 mg/dL Invalid Interpretation Code 0.20 - 1.20 mg/dL AH ADM SS Protein [Mass/Vol] 6.3 G/dL Invalid Interpretation Code 5.7 - 8.2 G/dL AH ADM SS No Panel InformationOrdered By: SYSTEM [...] 01/13/2023 9:24:44 AM Ordering Provider: PAULA Sahni [facility] ([place]) .Auto Diffon 01-12-2023 Basophil, Absolute 0.0 10 3/mcL Normal 0.0-0.3 [facility] Comment on above: Performed By: #### L AC #### [address] [address] Basophils/100 WBC (Bld) 0.3 % Normal 0.0-2.5 [facility] ([place] Comment on above: Performed By: #### L AC #### [address] [address] Eosinophil, Absolute 0.2 10 3/mcL Normal 0.0-0.7 [facility] ([place]) Comment on above: Performed By: #### L AC #### [address] [address] Eosinophils/100 WBC (Bld) 4.4 % Normal 0.0-6.0 [facility] ([place] Comment on above: Performed By: #### L AC #### [address] [address] Lymphocyte, Absolute 0.8 10 3/mcL Low 0.9-4.3 [facility] ([place] Comment on above: Performed By: #### L AC #### [address] [address] Lymphocytes/100 WBC (Bld) 15.1 % Low 20.0-40.0 [facility] ([place] Comment on above: Performed By: #### L AC #### [address] [address] Monocyte, Absolute 0.5 10 3/mcL Normal 0.1-1.4 [facility] Comment on above: Performed By: #### L AC #### [address] [address] Monocytes/100 WBC (Bld) 9.7 % Normal 2.0-13.0 [facility] ([place] Comment on above: Performed By: #### L AC #### [address] [address] Neutrophils/100 WBC (Bld) 70.5 % Normal 50.0-75.0 [facility] ([place] Comment on above: Performed By: #### L AC #### [address] [address] .GFRon 01-12-2023 GFR >60 Normal [facility] Comment on above: Result Comment: GFR Population [...] meters Performed By: #### L AC #### [address] [address] GFR Non- >60 Normal [facility] ([place] Comment on above: Result Comment: GFR Population [...] meters Performed By: #### L AC #### [address] [address] .NEUABSon 01-12-2023 Neutrophil, Absolute 3.7 10 3/mcL Normal 2.3-8.1 [facility] ([place] Comment on above: Performed By: #### L AC #### [address] [address] CBCon 01-12-2023 Erythrocyte distribution width (RBC) [Ratio] 14.1 % Normal 11.5-15.5 [facility] ([place] Comment on above: Performed By: #### L AC #### [address] [address] Hematocrit (Bld) [Volume fraction] 39.4 % Low 40.0-52.0 [facility] ([place] Comment on above: Performed By: #### L AC #### [address] [address] Hgb 13.3 G/dL Normal 13.0-17.5 [facility] ([place] Comment on above: Performed By: #### L AC #### [place] [id number] MCH (RBC) [Entitic mass] 30.9 pg Normal 27.0-33.0 [facility] ([place] Comment on above: Performed By: #### L AC #### [place] [address] MCHC 33.7 G/dL Normal 32.0-36.0 [facility] ([place] Comment on above: Performed By: #### L AC #### [place] [address] MCV (RBC) [Entitic vol] 91.9 fL Normal 81.0-100.0 [facility] ([place] Comment on above: Performed By: #### L AC #### [place] [address] Platelet 238 10 3/mcL Normal 150-450 [facility] ([place] Comment on above: Performed By: #### L AC #### [place] [address] Platelet mean volume (Bld) [Entitic vol] 7.4 fL Normal 6.4-10.5 [facility] ([place] Comment on above: Performed By: #### L AC #### [place] [address] RBC 4.29 10 6/mcL Low 4.50-6.00 [facility] ([place] Comment on above: Performed By: #### L AC #### [place] [address] WBC 5.3 10 3/mcL Normal 4.5-10.8 [facility] ([place] Comment on above: Performed By: #### L AC #### [place] [address] CMPon 01-12-2023 Albumin Level 3.0 G/dL Low 3.2-4.8 [facility] ([place] Comment on above: Performed By: #### L AC #### [address] [address] Albumin/Globulin [Mass ratio] 0.9 {ratio} Normal 0.9-1.6 [facility] ([place] Comment on above: Performed By: #### L AC #### [address] [address] ALP [Catalytic activity/Vol] 189 U/L High 38-126 [facility] ([place] Comment on above: Performed By: #### L AC #### [address] [address] ALT [Catalytic activity/Vol] 286 U/L High 12-55 [facility] ([place] Comment on above: Performed By: #### L AC #### [address] [address] AST [Catalytic activity/Vol] 76 U/L High 8-34 [facility] ([place] Comment on above: Performed By: #### L AC #### [address] [address] Bili Total 4.20 mg/dL High 0.20-1.20 [facility] ([place] Comment on above: Result Comment: Use of this assay is not recommended for patients undergoing treatment with eltrombopag due to the potential for falsely elevated results. Performed By: #### L AC #### [address] [address] BUN/Creatinine Ratio 20.2 ratio Normal 10.0-22.0 [facility] Comment on above: Performed By: #### L AC #### [address] [address] Calcium [Mass/Vol] 9.0 mg/dL Normal 8.7-10.4 [facility] ([place]) Comment on above: Performed By: #### L AC #### [address] [address] Chloride [Moles/Vol] 104 mmol/L Normal 98-110 [facility] Comment on above: Performed By: #### L AC #### [address] [address] CO2 [Moles/Vol] 26 mmol/L Normal 22-32 [facility] ([place]) Comment on above: Performed By: #### L AC #### [address] [address] Creatinine [Mass/Vol] 0.94 mg/dL Normal 0.60-1.40 [facility] ([place]) Comment on above: Performed By: #### L AC #### [address] [address] Electrolyte Balance 9.0 mEq/L Normal 4.0-15.0 [facility] ([place]) Comment on above: Performed By: #### L AC #### [address] [address] Globulin 3.3 G/dL Normal 1.5-3.8 [facility] ([place]) Comment on above: Performed By: #### L AC #### [address] [address] Glucose [Mass/Vol] 95 mg/dL Normal 82-115 [facility] ([place]) Comment on above: Performed By: #### L AC #### [address] [address] Potassium [Moles/Vol] 5.0 mmol/L Normal 3.5-5.0 [facility] ([place]) Comment on above: Performed By: #### L AC #### [address] [address] Sodium [Moles/Vol] 139 mmol/L Normal 136-145 [facility] ([place]) Comment on above: Performed By: #### L AC #### [address] [address] Total Protein 6.3 G/dL Normal 5.7-8.2 [facility] ([place]) Comment on above: Result Comment: No te - New Reference Range in effect 20 Performed By: #### L AC #### [address] [address] Urea nitrogen [Mass/Vol] 19.0 mg/dL Normal 8.0-22.0 [facility] ([place]) Comment on above: Performed By: #### L AC #### [address] [address] .Auto Diffon 01-11-2023 Basophil, Absolute 0.0 10 3/mcL Normal 0.0-0.3 [facility] Comment on above: Performed By: #### C BC, ADIFF, ANEU, HFP, CMP, GFR #### [address] [address] Basophils/100 WBC (Bld) 0.3 % Normal 0.0-2.5 [facility] ([place]) Comment on above: Performed By: #### C BC, ADIFF, ANEU, HFP, CMP, GFR #### [address] [address] Eosinophil, Absolute 0.1 10 3/mcL Normal 0.0-0.7 [facility] ([place]) Comment on above: Performed By: #### C BC, ADIFF, ANEU, HFP, CMP, GFR #### [address] [address] Eosinophils/100 WBC (Bld) 1.4 % Normal 0.0-6.0 [facility] ([place]) Comment on above: Performed By: #### C BC, ADIFF, ANEU, HFP, CMP, GFR #### [address] [address] Lymphocyte, Absolute 1.2 10 3/mcL Normal 0.9-4.3 [facility] ([place]) Comment on above: Performed By: #### C BC, ADIFF, ANEU, HFP, CMP, GFR #### [address] [address] Lymphocytes/100 WBC (Bld) 13.5 % Low 20.0-40.0 [facility] ([place]) Comment on above: Performed By: #### C BC, ADIFF, ANEU, HFP, CMP, GFR #### [address] [address] Monocyte, Absolute 1.2 10 3/mcL Normal 0.1-1.4 [facility] Comment on above: Performed By: #### C BC, ADIFF, ANEU, HFP, CMP, GFR #### [address] [address] Monocytes/100 WBC (Bld) 13.0 % Normal 2.0-13.0 [facility] ([place]) Comment on above: Performed By: #### C BC, ADIFF, ANEU, HFP, CMP, GFR #### [address] [address] Neutrophils/100 WBC (Bld) 71.8 % Normal 50.0-75.0 [facility] ([place]) Comment on above: Performed By: #### C BC, ADIFF, ANEU, HFP, CMP, GFR #### [address] [address] .GFRon 01-11-2023 GFR 51 ml/min/1.73sqm Normal [facility] ([place]) Comment on above: Result Comment: GFR [...] BC, ADIFF, ANEU, HFP, CMP, GFR #### [address] [address] GFR Non- 42 ml/min/1.73sqm Normal [facility] ([place]) Comment on above: Result Comment: GFR [...] BC, ADIFF, ANEU, HFP, CMP, GFR #### [address] [address] .NEUABSon 01-11-2023 Neutrophil, Absolute 6.5 10 3/mcL Normal 2.3-8.1 [facility] ([place]) Comment on above: Performed By: #### C BC, ADIFF, ANEU, HFP, CMP, GFR #### [place] [address] BCIDon 01-11-2023 Acinetobacter jayne-baumanii complex Not detected Normal Not Detected [facility] ([place]) Comment on above: Performed By: #### C BC, ADIFF, ANEU, HFP, CMP, GFR #### [place] [address] Bacteroides fragilis Not detected Normal Not Detected [facility] ([place]) Comment on above: Performed By: #### C BC, ADIFF, ANEU, HFP, CMP, GFR #### [address] [address] BCID Comment See Comment Normal [facility] ([place]) Comment on above: Result Comment: Anti microbial [...] BC, ADIFF, ANEU, HFP, CMP, GFR #### [place] [address] Emeka albicans Not detected Normal Not Detected [facility] ([place]) Comment on above: Performed By: #### C BC, ADIFF, ANEU, HFP, CMP, GFR #### [place] [address] Emeka auris Not detected Normal Not Detected [facility] ([place]) Comment on above: Performed By: #### C BC, ADIFF, ANEU, HFP, CMP, GFR #### [place] [address] Emeka glabrata Not detected Normal Not Detected [facility] ([place]) Comment on above: Performed By: #### C BC, ADIFF, ANEU, HFP, CMP, GFR #### [place] [address] Emeka krusei Not detected Normal Not Detected [facility] ([place]) Comment on above: Performed By: #### C BC, ADIFF, ANEU, HFP, CMP, GFR #### [place] [address] Emeka parapsilosis Not detected Normal Not Detected [facility] ([place]) Comment on above: Performed By: #### C BC, ADIFF, ANEU, HFP, CMP, GFR #### [place] [address] Emeka tropicalis Not detected Normal Not Detected [facility] ([place]) Comment on above: Performed By: #### C BC, ADIFF, ANEU, HFP, CMP, GFR #### [place] [address] Cryptococcus neoformans-gattii Not detected Normal Not Detected [facility] ([place]) Comment on above: Performed By: #### C BC, ADIFF, ANEU, HFP, CMP, GFR #### [place] [address] CTX-M (ESBL) Not detected Normal Not Detected [facility] ([place]) Comment on above: Performed By: #### C BC, ADIFF, ANEU, HFP, CMP, GFR #### [place] [address] E. Coli Not detected Normal Not Detected [facility] ([place]) Comment on above: Performed By: #### C BC, ADIFF, ANEU, HFP, CMP, GFR #### [facility] [address] [place], [place] [address] Enterobacter cloacae Complex Not detected Normal Not Detected [facility] ([place]) Comment on above: Performed By: #### C BC, ADIFF, ANEU, HFP, CMP, GFR #### [place] [address] Enterobacterales Detected Abnormal Not Detected [facility] ([place]) Comment on above: Performed By: #### C BC, ADIFF, ANEU, HFP, CMP, GFR #### [place] [id number] Enterococcus faecalis Not detected Normal Not Detected [facility] ([place]) Comment on above: Performed By: #### C BC, ADIFF, ANEU, HFP, CMP, GFR #### [place] [address] Enterococcus faecium Not detected Normal Not Detected [facility] ([place]) Comment on above: Performed By: #### C BC, ADIFF, ANEU, HFP, CMP, GFR #### [place] [address] Haemophilus influenzae Not detected Normal Not Detected [facility] ([place]) Comment on above: Performed By: #### C BC, ADIFF, ANEU, HFP, CMP, GFR #### [place] [address] IMP (Carbapenemase) Not detected Normal Not Detected [facility] ([place]) Comment on above: Performed By: #### C BC, ADIFF, ANEU, HFP, CMP, GFR #### [place] [address] Klebsiella aerogenes Detected Abnormal Not Detected [facility] ([place]) Comment on above: Performed By: #### C BC, ADIFF, ANEU, HFP, CMP, GFR #### [place] [id number] Klebsiella oxytoca Not detected Normal Not Detected [facility] ([place]) Comment on above: Performed By: #### C BC, ADIFF, ANEU, HFP, CMP, GFR #### [place] [id number] Klebsiella pneumoniae group Not detected Normal Not Detected [facility] ([place]) Comment on above: Performed By: #### C BC, ADIFF, ANEU, HFP, CMP, GFR #### [address] [address] KPC (Carbapenemase) Not detected Normal Not Detected [facility] ([place]) Comment on above: Performed By: #### C BC, ADIFF, ANEU, HFP, CMP, GFR #### [facility] [address] [place] [address] Listeria monocytogenes Not detected Normal Not Detected [facility] ([place]) Comment on above: Performed By: #### C BC, ADIFF, ANEU, HFP, CMP, GFR #### [facility] [address] [place] [address] MCR-1 (Colistin Resistance) Not detected Normal Not Detected [facility] ([place]) Comment on above: Performed By: #### C BC, ADIFF, ANEU, HFP, CMP, GFR #### [address] [address] Mec A/C Not Applicable Normal Not Detected [facility] ([place]) Comment on above: Performed By: #### C BC, ADIFF, ANEU, HFP, CMP, GFR #### [address] [address] Mec A/C-MREJ (MRSA) Not Applicable Normal Not Detected [facility] ([place]) Comment on above: Performed By: #### C BC, ADIFF, ANEU, HFP, CMP, GFR #### [address] [address] NDM (Carbapenemase) Not detected Normal Not Detected [facility] ([place]) Comment on above: Performed By: #### C BC, ADIFF, ANEU, HFP, CMP, GFR #### [address] [address] Neisseria meningitidis (Encapsalated) Not detected Normal Not Detected [facility] ([place]) Comment on above: Performed By: #### C BC, ADIFF, ANEU, HFP, CMP, GFR #### [address] [address] OXA-48 like (Carbapenemase) Not detected Normal Not Detected [facility] ([place]) Comment on above: Performed By: #### C BC, ADIFF, ANEU, HFP, CMP, GFR #### [address] [address] Proteus Not detected Normal Not Detected [facility] ([place]) Comment on above: Performed By: #### C BC, ADIFF, ANEU, HFP, CMP, GFR #### [address] [address] Pseudomonas aeruginosa Not detected Normal Not Detected [facility] ([place]) Comment on above: Performed By: #### C BC, ADIFF, ANEU, HFP, CMP, GFR #### [address] [address] S. agalactiae Org specific cx Ql (Vag fld) Not detected Normal Not Detected [facility] ([place]) Comment on above: Performed By: #### C BC, ADIFF, ANEU, HFP, CMP, GFR #### [address] [address] Salmonella species Not detected Normal Not Detected [facility] ([place]) Comment on above: Performed By: #### C BC, ADIFF, ANEU, HFP, CMP, GFR #### [address] [address] Serratia marcescens Not detected Normal Not Detected [facility] ([place] Comment on above: Performed By: #### C BC, ADIFF, ANEU, HFP, CMP, GFR #### [address] [address] Staphylococcus Not detected Normal Not Detected [facility] ([place] Comment on above: Performed By: #### C BC, ADIFF, ANEU, HFP, CMP, GFR #### [address] [address] Staphylococcus aureus Not detected Normal Not Detected [facility] ([place]) Comment on above: Result Comment: If S taphylococcus aureus is Detected, an Infectious Disease physician consult is required on identification. Performed By: #### C BC, ADIFF, ANEU, HFP, CMP, GFR #### [address] [address] Staphylococcus epidermidis Not detected Normal Not Detected [facility] ([place] Comment on above: Performed By: #### C BC, ADIFF, ANEU, HFP, CMP, GFR #### [place] [address] Staphylococcus lugdunensis Not detected Normal Not Detected [facility] ([place] Comment on above: Performed By: #### C BC, ADIFF, ANEU, HFP, CMP, GFR #### [place] [address] Stenotropomonas maltophilia Not detected Normal Not Detected [facility] ([place]) Comment on above: Performed By: #### C BC, ADIFF, ANEU, HFP, CMP, GFR #### [place] [address] Streptococcus Not detected Normal Not Detected [facility] ([place] Comment on above: Performed By: #### C BC, ADIFF, ANEU, HFP, CMP, GFR #### [place] [address] Streptococcus pneumoniae Not detected Normal Not Detected [facility] ([place]) Comment on above: Performed By: #### C BC, ADIFF, ANEU, HFP, CMP, GFR #### [place] [address] Streptococcus pyogenes Not detected Normal Not Detected [facility] ([place]) Comment on above: Performed By: #### C BC, ADIFF, ANEU, HFP, CMP, GFR #### [place] [address] Van A/B Not Applicable Normal Not Detected [facility] ([place]) Comment on above: Performed By: #### C BC, ADIFF, ANEU, HFP, CMP, GFR #### [place] [address] VIM (Carbapenemase) Not detected Normal Not Detected [facility] ([place]) Comment on above: Performed By: #### C BC, ADIFF, ANEU, HFP, CMP, GFR #### [place] [address] CBCon 01-11-2023 Erythrocyte distribution width (RBC) [Ratio] 13.8 % Normal 11.5-15.5 [facility] ([place]) Comment on above: Performed By: #### C BC, ADIFF, ANEU, HFP, CMP, GFR #### [place] [address] Hematocrit (Bld) [Volume fraction] 38.9 % Low 40.0-52.0 [facility] ([place] Comment on above: Performed By: #### C BC, ADIFF, ANEU, HFP, CMP, GFR #### [place] [address] Hgb 13.2 G/dL Normal 13.0-17.5 [facility] ([place] Comment on above: Performed By: #### C BC, ADIFF, ANEU, HFP, CMP, GFR #### [place] [address] MCH (RBC) [Entitic mass] 31.3 pg Normal 27.0-33.0 [facility] ([place]) Comment on above: Performed By: #### C BC, ADIFF, ANEU, HFP, CMP, GFR #### [place] [address] MCHC 33.8 G/dL Normal 32.0-36.0 [facility] ([place]) Comment on above: Performed By: #### C BC, ADIFF, ANEU, HFP, CMP, GFR #### [place] [address] MCV (RBC) [Entitic vol] 92.4 fL Normal 81.0-100.0 [facility] ([place]) Comment on above: Performed By: #### C BC, ADIFF, ANEU, HFP, CMP, GFR #### [place] [address] Platelet 240 10 3/mcL Normal 150-450 [facility] ([place]) Comment on above: Performed By: #### C BC, ADIFF, ANEU, HFP, CMP, GFR #### [place] [address] Platelet mean volume (Bld) [Entitic vol] 7.4 fL Normal 6.4-10.5 [facility] ([place]) Comment on above: Performed By: #### C BC, ADIFF, ANEU, HFP, CMP, GFR #### [address] [address] RBC 4.21 10 6/mcL Low 4.50-6.00 [facility] ([place]) Comment on above: Performed By: #### C BC, ADIFF, ANEU, HFP, CMP, GFR #### [address] [address] WBC 9.0 10 3/mcL Normal 4.5-10.8 [facility] ([place]) Comment on above: Performed By: #### C BC, ADIFF, ANEU, HFP, CMP, GFR #### [address] [address] CMPon 01-11-2023 BUN/Creatinine Ratio 16.9 ratio Normal 10.0-22.0 [facility] Comment on above: Performed By: #### C BC, ADIFF, ANEU, HFP, CMP, GFR #### [place] [address] Calcium [Mass/Vol] 7.9 mg/dL Low 8.7-10.4 [facility] ([place]) Comment on above: Performed By: #### C BC, ADIFF, ANEU, HFP, CMP, GFR #### [place] [address] Chloride [Moles/Vol] 106 mmol/L Normal 98-110 [facility] Comment on above: Performed By: #### C BC, ADIFF, ANEU, HFP, CMP, GFR #### [place] [id number] CO2 [Moles/Vol] 22 mmol/L Normal 22-32 [facility] ([place]) Comment on above: Performed By: #### C BC, ADIFF, ANEU, HFP, CMP, GFR #### [place] [address] Creatinine [Mass/Vol] 1.66 mg/dL High 0.60-1.40 [facility] ([place]) Comment on above: Performed By: #### C BC, ADIFF, ANEU, HFP, CMP, GFR #### [place] [id number] Electrolyte Balance 3.0 mEq/L Low 4.0-15.0 [facility] ([place]) Comment on above: Performed By: #### C BC, ADIFF, ANEU, HFP, CMP, GFR #### [address] [address] Glucose [Mass/Vol] 111 mg/dL Normal 82-115 [facility] ([place]) Comment on above: Performed By: #### C BC, ADIFF, ANEU, HFP, CMP, GFR #### [place] [phone] Potassium [Moles/Vol] 4.2 mmol/L Normal 3.5-5.0 [facility] ([place]) Comment on above: Performed By: #### C BC, ADIFF, ANEU, HFP, CMP, GFR #### [address] [address] Sodium [Moles/Vol] 131 mmol/L Low 136-145 [facility] ([place] Comment on above: Performed By: #### C BC, ADIFF, ANEU, HFP, CMP, GFR #### [place] [id number] Urea nitrogen [Mass/Vol] 28.0 mg/dL High 8.0-22.0 [facility] ([place]) Comment on above: Performed By: #### C BC, ADIFF, ANEU, HFP, CMP, GFR #### [address] [address] HFPon 01-11-2023 Bili Indirect 2.0 mg/dL Normal 0.1-10.0 [facility] ([place]) Comment on above: Performed By: #### C BC, ADIFF, ANEU, HFP, CMP, GFR #### [place] [id number] Albumin Level 2.9 G/dL Low 3.2-4.8 [facility] ([place] Comment on above: Performed By: #### C BC, ADIFF, ANEU, HFP, CMP, GFR #### [address] [address] Albumin/Globulin [Mass ratio] 1.0 {ratio} Normal 0.9-1.6 [facility] ([place]) Comment on above: Performed By: #### C BC, ADIFF, ANEU, HFP, CMP, GFR #### [place] [address] ALP [Catalytic activity/Vol] 185 U/L High 38-126 [facility] ([place]) Comment on above: Performed By: #### C BC, ADIFF, ANEU, HFP, CMP, GFR #### [place] [address] ALT [Catalytic activity/Vol] 377 U/L High 12-55 [facility] ([place]) Comment on above: Performed By: #### C BC, ADIFF, ANEU, HFP, CMP, GFR #### [place] [address] AST [Catalytic activity/Vol] 142 U/L High 8-34 [facility] ([place]) Comment on above: Performed By: #### C BC, ADIFF, ANEU, HFP, CMP, GFR #### [place] [address] Bili Direct 4.6 mg/dL High 0.0-0.4 [facility] ([place]) Comment on above: Result Comment: Use of this assay is not recommended for patients undergoing treatment with eltrombopag due to the potential for falsely elevated results. Performed By: #### C BC, ADIFF, ANEU, HFP, CMP, GFR #### [place] [address] Bili Total 6.60 mg/dL High 0.20-1.20 [facility] ([place] Comment on above: Result Comment: Use of this assay is not recommended for patients undergoing treatment with eltrombopag due to the potential for falsely elevated results. Performed By: #### C BC, ADIFF, ANEU, HFP, CMP, GFR #### [place] [id number] Globulin 2.8 G/dL Normal 1.5-3.8 [facility] ([place] Comment on above: Performed By: #### C BC, ADIFF, ANEU, HFP, CMP, GFR #### [facility] [address] [place] [address] Total Protein 5.7 G/dL Normal 5.7-8.2 [facility] ([place] Comment on above: Result Comment: No te - New Reference Range in effect 20 Performed By: #### C BC, ADIFF, ANEU, HFP, CMP, GFR #### [place] [id number] [place] [address] LABORATORYOrdered By: Steffanie Mckeon on 01-11-2023 Appearance (U) Clear (01/11/23 4:06 PM) Invalid Interpretation Code Clear Auto Urine SS Bilirubin Ql (U) Negative (01/11/23 4:06 PM) Invalid Interpretation Code Neg-Trace AH Auto Urine SS Color (U) DARK YELLOW Invalid Interpretation Code AH Auto Urine SS Glucose Test strip (U) [Mass/Vol] Negative Invalid Interpretation Code Negativemg /dL AH Auto Urine SS Hemoglobin Auto test strip (U) [Mass/Vol] Small *ABN* (01/11/23 4:06 PM) Invalid Interpretation Code Neg-Trace AH Auto Urine SS Ketones Ql (U) Negative Invalid Interpretation Code Neg-Tracem g/dL Auto Urine SS UA Leuk Est Negative (01/11/23 4:06 PM) Invalid Interpretation Code Negative AH Auto Urine SS UA Nitrite Negative (01/11/23 4:06 PM) Invalid Interpretation Code Negative AH Auto Urine SS UA pH 5.5 (01/11/23 4:06 PM) Invalid Interpretation Code 5.0 - 8.0 AH Auto Urine SS UA Protein Negative Invalid Interpretation Code Negativemg /dL AH Auto Urine SS UA RBC 0-2 /HPF Invalid Interpretation Code 0-2/HPF AH Auto Urine SS UA Spec Grav <=1.005 *ABN* (01/11/23 4:06 PM) Invalid Interpretation Code 1.006-1.02 9 Auto Urine SS UA Specimen Type Void (01/11/23 4:06 PM) Invalid Interpretation Code AH Auto Urine SS UA Squam Epithelial Negative Invalid Interpretation Code 0-20/HPF Auto Urine SS UA Urobilinogen 1.0 E.U./dL Invalid Interpretation Code 0.2-1.0E.U ./dL AH Auto Urine SS WBC LM.HPF (Urine [...] Routine cultures are held for 5 days. [facility] Culture Urine No growth at 48 hours. [facility] UAon 01-11-2023 Color (U) DARK YELLOW Normal [facility] ([place] Comment on above: Performed By: #### C BC, ADIFF, ANEU, HFP, CMP, GFR #### [address] [address] Glucose (U) [Mass/Vol] Negative Normal Negative [facility] ([place]) Comment on above: Performed By: #### C BC, ADIFF, ANEU, HFP, CMP, GFR #### [address] [address] Ketones Ql (U) Negative Normal Neg-Trace [facility] ([place] Comment on above: Performed By: #### C BC, ADIFF, ANEU, HFP, CMP, GFR #### [address] [address] UA Appear Clear Normal Clear [facility] ([place] Comment on above: Performed By: #### C BC, ADIFF, ANEU, HFP, CMP, GFR #### [address] [address] UA Blood Small Abnormal Neg-Trace [facility] ([place] Comment on above: Performed By: #### C BC, ADIFF, ANEU, HFP, CMP, GFR #### [address] [address] UA Leuk Est Negative Normal Negative [facility] ([place] Comment on above: Performed By: #### C BC, ADIFF, ANEU, HFP, CMP, GFR #### [address] [address] UA Nitrite Negative Normal Negative [facility] ([place] Comment on above: Performed By: #### C BC, ADIFF, ANEU, HFP, CMP, GFR #### [address] [address] UA pH 5.5 Normal 5.0 - 8.0 [facility] ([place] Comment on above: Performed By: #### C BC, ADIFF, ANEU, HFP, CMP, GFR #### [address] [address] UA Protein Negative Normal Negative [facility] ([place] Comment on above: Performed By: #### C BC, ADIFF, ANEU, HFP, CMP, GFR #### [address] [address] UA Spec Grav <=1.005 Abnormal 1.006-1.02 9 [facility] ([place] Comment on above: Performed By: #### C BC, ADIFF, ANEU, HFP, CMP, GFR #### [address] [address] UA Specimen Type Void Normal [facility] ([place] Comment on above: Performed By: #### C BC, ADIFF, ANEU, HFP, CMP, GFR #### [address] [address] UA Urobilinogen 1.0 E.U./dL Normal 0.2-1.0 [facility] ([place] Comment on above: Performed By: #### C BC, ADIFF, ANEU, HFP, CMP, GFR #### [address] [address] Urobilinogen (U) [Mass/Vol] Negative Normal Neg-Trace [facility] ([place] Comment on above: Performed By: #### C BC, ADIFF, ANEU, HFP, CMP, GFR #### [address] [address] UAMICon 01-11-2023 UA RBC 0-2 Normal 0-2 [facility] ([place] Comment on above: Performed By: #### C BC, ADIFF, ANEU, HFP, CMP, GFR #### [address] [address] UA Squam Epithelial Negative Normal 0-20 [facility] ([place] Comment on above: Performed By: #### C BC, ADIFF, ANEU, HFP, CMP, GFR #### [address] [address] UA WBC Negative Normal 0-5 [facility] ([place] Comment on above: Performed By: #### C BC, ADIFF, ANEU, HFP, CMP, GFR #### [address] [address] .Auto Diffon 01-10-2023 Basophil, Absolute 0.0 10 3/mcL Normal 0.0-0.3 [facility] Comment on above: Performed By: #### C BC, ADIFF, ANEU, HFP, CMP, GFR #### [place] [address] Basophils/100 WBC (Bld) 0.2 % Normal 0.0-2.5 [facility] ([place] Comment on above: Performed By: #### C BC, ADIFF, ANEU, HFP, CMP, GFR #### [address] [address] Eosinophil, Absolute 0.0 10 3/mcL Normal 0.0-0.7 [facility] ([place] Comment on above: Performed By: #### C BC, ADIFF, ANEU, HFP, CMP, GFR #### [address] [address] Eosinophils/100 WBC (Bld) 0.3 % Normal 0.0-6.0 [facility] ([place] Comment on above: Performed By: #### C BC, ADIFF, ANEU, HFP, CMP, GFR #### [address] [address] Lymphocyte, Absolute 0.5 10 3/mcL Low 0.9-4.3 [facility] ([place]) Comment on above: Performed By: #### C BC, ADIFF, ANEU, HFP, CMP, GFR #### [address] [address] Lymphocytes/100 WBC (Bld) 5.1 % Low 20.0-40.0 [facility] [facility] Comment on above: Performed By: #### C BC, ADIFF, ANEU, HFP, CMP, GFR #### [address] [address] Monocyte, Absolute 0.8 10 3/mcL Normal 0.1-1.4 [facility] [place] Comment on above: Performed By: #### C BC, ADIFF, ANEU, HFP, CMP, GFR #### [address] [address] Monocytes/100 WBC (Bld) 8.0 % Normal 2.0-13.0 [facility] ([place]) Comment on above: Performed By: #### C BC, ADIFF, ANEU, HFP, CMP, GFR #### [address] [address] Neutrophils/100 WBC (Bld) 86.4 % High 50.0-75.0 [facility] ([place]) Comment on above: Performed By: #### C BC, ADIFF, ANEU, HFP, CMP, GFR #### [address] [address] Basophil, Absolute 0.0 10 3/mcL Normal 0.0-0.2 [facility] [place] Comment on above: Performed By: #### C BC, ADIFF, ANEU, HFP, CMP, GFR #### [address] [address] Basophils/100 WBC (Bld) 0.7 % Normal 0.0-2.5 [facility] ([place]) Comment on above: Performed By: #### C BC, ADIFF, ANEU, HFP, CMP, GFR #### [address] [address] Eosinophil, Absolute 0.1 10 3/mcL Normal 0.0-0.4 [facility] ([place]) Comment on above: Performed By: #### C BC, ADIFF, ANEU, HFP, CMP, GFR #### [address] [address] Eosinophils/100 WBC (Bld) 1.6 % Normal 0.0-7.0 [facility] ([place]) Comment on above: Performed By: #### C BC, ADIFF, ANEU, HFP, CMP, GFR #### [address] [address] Lymphocyte, Absolute 0.8 10 3/mcL Normal 0.8-3.9 [facility] ([place]) Comment on above: Performed By: #### C BC, ADIFF, ANEU, HFP, CMP, GFR #### [address] [address] Lymphocytes/100 WBC (Bld) 12.7 % Normal 10.0-50.0 [facility] ([place] Comment on above: Performed By: #### C BC, ADIFF, ANEU, HFP, CMP, GFR #### [address] [address] Monocyte, Absolute 0.6 10 3/mcL Normal 0.2-1.0 [facility] [place] Comment on above: Performed By: #### C BC, ADIFF, ANEU, HFP, CMP, GFR #### [address] [address] Monocytes/100 WBC (Bld) 9.1 % Normal 1.7-13.0 [facility] ([place] Comment on above: Performed By: #### C BC, ADIFF, ANEU, HFP, CMP, GFR #### [address] [address] Neutrophils/100 WBC (Bld) 75.9 % Normal 37.0-80.0 [facility] ([place] Comment on above: Performed By: #### C BC, ADIFF, ANEU, HFP, CMP, GFR #### [address] [address] .GFRon 01-10-2023 GFR >60 Normal [facility] [place] Comment on above: Result Comment: GFR Population [...] square meters Performed By: #### C BC, RENE, ANEU, HFP, CMP, GFR #### [address] [address] GFR Non- >60 Normal [facility] ([place]) Comment on above: Result Comment: GFR Population [...] square meters Performed By: #### C BC, ADMIKALA, ANEU, HFP, CMP, GFR #### [address] [address] GFR Non- 74 ml/min/1.73sqm Normal [facility] ([place]) Comment on above: Result Comment: GFR Population [...] BC, ADIFF, ANEU, HFP, CMP, GFR #### [address] [address] GFR 90 ml/min/1.73sqm Normal [facility] ([place]) Comment on above: Result Comment: GFR Population [...] BC, ADIFF, ANEU, HFP, CMP, GFR #### [place] [address] .MDWon 01-10-2023 Monocyte Distribution Width 16.66 Normal 0.00-20.00 [facility] ([place]) Comment on above: Result Comment: For ED adult patients suspected of sepsis, MDW<=20.0 does not rule out sepsis or risk of sepsis Performed By: #### C BC, ADIFF, ANEU, HFP, CMP, GFR #### [place] [address] .NEUABSon 01-10-2023 Neutrophil, Absolute 9.2 10 3/mcL High 2.3-8.1 [facility] ([place]) Comment on above: Performed By: #### C BC, ADIFF, ANEU, HFP, CMP, GFR #### [place] [address] Neutrophil, Absolute 4.9 10 3/mcL Normal 2.9-6.2 [facility] ([place]) Comment on above: Performed By: #### C BC, ADIFF, ANEU, HFP, CMP, GFR #### [place] [address] AMOXICILLIN+CLAVULANATE:SUSC :PT:ISOLATE:ORDQN:MICOrdered By: Nisha Lira on 01-10-2023 Amoxicillin+Clavulanat e LUIS FERNANDO [Susc] Carbapenem Resistant Enterobacteriaceae Isolated from aerobe bottle only. Infection control has been notified. PCR for Carbapenemase Producing Genes (CR-CRE) to follow Klebsiella pneumoniae Isolated from anaerobe bottle only. [facility] AMOXICILLIN+CLAVULANATE:SUSC :PT:ISOLATE:ORDQN:MICon 01-10-2023 GSANA Gram Negative Rods [facility] Amoxicillin+Clavulanate LUIS FERNANDO [Susc]Ordered By: Nisha Lira on 01-10-2023 Carbapenem Resistant Enterobacteriaceae Carbapenem Resistant Enterobacteriaceae [facility] GSAER Gram Negative Rods [facility] Klebsiella pneumoniae Klebsiella pneumoniae [facility] CBCon 01-10-2023 Erythrocyte distribution width (RBC) [Ratio] 13.9 % Normal 11.5-15.5 [facility] ([place]) Comment on above: Performed By: #### C BC, ADIFF, ANEU, HFP, CMP, GFR #### [place] [address] Hematocrit (Bld) [Volume fraction] 42.9 % Normal 40.0-52.0 [facility] ([place] Comment on above: Performed By: #### C BC, ADIFF, ANEU, HFP, CMP, GFR #### [place] [id number] Hgb 14.4 G/dL Normal 13.0-17.5 [facility] ([place] Comment on above: Performed By: #### C BC, ADIFF, ANEU, HFP, CMP, GFR #### [place] [address] MCH (RBC) [Entitic mass] 30.6 pg Normal 27.0-33.0 [facility] ([place] Comment on above: Performed By: #### C BC, ADIFF, ANEU, HFP, CMP, GFR #### [address] [address] MCHC 33.6 G/dL Normal 32.0-36.0 [facility] ([place] Comment on above: Performed By: #### C BC, ADIFF, ANEU, HFP, CMP, GFR #### [place] [address] MCV (RBC) [Entitic vol] 91.1 fL Normal 81.0-100.0 [facility] ([place] Comment on above: Performed By: #### C BC, ADIFF, ANEU, HFP, CMP, GFR #### [place] [address] Platelet 287 10 3/mcL Normal 150-450 [facility] ([place]) Comment on above: Performed By: #### C BC, ADIFF, ANEU, HFP, CMP, GFR #### [place] [address] Platelet mean volume (Bld) [Entitic vol] 7.0 fL Normal 6.4-10.5 [facility] ([place]) Comment on above: Performed By: #### C BC, ADIFF, ANEU, HFP, CMP, GFR #### [place] [address] RBC 4.71 10 6/mcL Normal 4.50-6.00 [facility] ([place]) Comment on above: Performed By: #### C BC, ADIFF, ANEU, HFP, CMP, GFR #### [place] [id number] WBC 10.6 10 3/mcL Normal 4.5-10.8 [facility] ([place]) Comment on above: Performed By: #### C BC, ADIFF, ANEU, HFP, CMP, GFR #### [place] [address] Erythrocyte distribution width (RBC) [Ratio] 13.8 % Normal 11.5-14.5 [facility] ([place] Comment on above: Performed By: #### C BC, ADIFF, ANEU, HFP, CMP, GFR #### [place] [address] Hematocrit (Bld) [Volume fraction] 41.1 % Low 42.0-52.0 [facility] ([place]) Comment on above: Performed By: #### C BC, ADIFF, ANEU, HFP, CMP, GFR #### [place] [address] Hgb 14.4 G/dL Normal 14.0-18.0 [facility] ([place]) Comment on above: Performed By: #### C BC, ADIFF, ANEU, HFP, CMP, GFR #### [place] [address] MCH (RBC) [Entitic mass] 31.0 pg Normal 27.0-31.2 [facility] ([place]) Comment on above: Performed By: #### C BC, ADIFF, ANEU, HFP, CMP, GFR #### [place] [address] MCHC 34.9 G/dL Normal 31.8-35.4 [facility] ([place]) Comment on above: Performed By: #### C BC, ADIFF, ANEU, HFP, CMP, GFR #### [place] [address] MCV (RBC) [Entitic vol] 88.6 fL Normal 80.0-94.0 [facility] ([place]) Comment on above: Performed By: #### C BC, ADIFF, ANEU, HFP, CMP, GFR #### [place] [address] Platelet 284 10 3/mcL Normal 130-400 [facility] ([place]) Comment on above: Performed By: #### C BC, ADIFF, ANEU, HFP, CMP, GFR #### [place] [address] Platelet mean volume (Bld) [Entitic vol] 6.6 fL Low 7.4-10.4 [facility] ([place]) Comment on above: Performed By: #### C BC, ADIFF, ANEU, HFP, CMP, GFR #### [place] [address] RBC 4.64 10 6/mcL Normal 4.04-6.13 [facility] ([place]) Comment on above: Performed By: #### C BC, ADIFF, ANEU, HFP, CMP, GFR #### [place] [id number] WBC 6.5 10 3/mcL Normal 4.6-10.8 [facility] ([place]) Comment on above: Performed By: #### C BC, ADIFF, ANEU, HFP, CMP, GFR #### [place] [id number] CMPon 01-10-2023 Albumin Level 3.4 G/dL Normal 3.2-4.8 [facility] ([place]) Comment on above: Performed By: #### C BC, ADIFF, ANEU, HFP, CMP, GFR #### [place] [address] Albumin/Globulin [Mass ratio] 1.1 {ratio} Normal 0.9-1.6 [facility] ([place]) Comment on above: Performed By: #### C BC, ADIFF, ANEU, HFP, CMP, GFR #### [place] [address] ALP [Catalytic activity/Vol] 172 U/L High 38-126 [facility] ([place]) Comment on above: Performed By: #### C BC, ADIFF, ANEU, HFP, CMP, GFR #### [place] [address] ALT [Catalytic activity/Vol] 536 U/L High 12-55 [facility] ([place]) Comment on above: Performed By: #### C BC, ADIFF, ANEU, HFP, CMP, GFR #### [place] [id number] AST [Catalytic activity/Vol] 335 U/L High 8-34 [facility] ([place]) Comment on above: Performed By: #### C BC, ADIFF, ANEU, HFP, CMP, GFR #### [place] [address] Bili Total 3.20 mg/dL High 0.20-1.20 [facility] ([place]) Comment on above: Result Comment: Use of this assay is not recommended for patients undergoing treatment with eltrombopag due to the potential for falsely elevated results. Performed By: #### C BC, ADIFF, ANEU, HFP, CMP, GFR #### [place] [id number] BUN/Creatinine Ratio 18.3 ratio Normal 10.0-22.0 [facility] Comment on above: Performed By: #### C BC, ADIFF, ANEU, HFP, CMP, GFR #### [place] [id number] Calcium [Mass/Vol] 8.8 mg/dL Normal 8.7-10.4 [facility] ([place]) Comment on above: Performed By: #### C BC, ADIFF, ANEU, HFP, CMP, GFR #### [place] [id number] Chloride [Moles/Vol] 104 mmol/L Normal 98-110 [facility] [place] Comment on above: Performed By: #### C BC, ADIFF, ANEU, HFP, CMP, GFR #### [place] [id number] CO2 [Moles/Vol] 26 mmol/L Normal 22-32 [facility] ([place]) Comment on above: Performed By: #### C BC, ADIFF, ANEU, HFP, CMP, GFR #### [place] [id number] Creatinine [Mass/Vol] 0.82 mg/dL Normal 0.60-1.40 [facility] ([place]) Comment on above: Performed By: #### C BC, ADIFF, ANEU, HFP, CMP, GFR #### [address] [address] Electrolyte Balance 8.0 mEq/L Normal 4.0-15.0 [facility] ([place]) Comment on above: Performed By: #### C BC, ADIFF, ANEU, HFP, CMP, GFR #### [address] [address] Globulin 3.1 G/dL Normal 1.5-3.8 [facility] ([place]) Comment on above: Performed By: #### C BC, ADIFF, ANEU, HFP, CMP, GFR #### [address] [address] Glucose [Mass/Vol] 118 mg/dL High 82-115 [facility] ([place]) Comment on above: Performed By: #### C BC, ADIFF, ANEU, HFP, CMP, GFR #### [address] [address] Potassium [Moles/Vol] 4.5 mmol/L Normal 3.5-5.0 [facility] ([place]) Comment on above: Performed By: #### C BC, ADIFF, ANEU, HFP, CMP, GFR #### [address] [address] Sodium [Moles/Vol] 138 mmol/L Normal 136-145 [facility] ([place]) Comment on above: Performed By: #### C BC, ADIFF, ANEU, HFP, CMP, GFR #### [address] [address] Total Protein 6.5 G/dL Normal 5.7-8.2 [facility] ([place]) Comment on above: Result Comment: No te - New Reference Range in effect 20 Performed By: #### C BC, ADIFF, ANEU, HFP, CMP, GFR #### [address] [address] Urea nitrogen [Mass/Vol] 15.0 mg/dL Normal 8.0-22.0 [facility] ([place]) Comment on above: Performed By: #### C BC, ADIFF, ANEU, HFP, CMP, GFR #### [address] [address] Albumin Level 3.4 G/dL Normal 3.4-4.8 [facility] ([place]) Comment on above: Performed By: #### C BC, ADIFF, ANEU, HFP, CMP, GFR #### [address] [address] Albumin/Globulin [Mass ratio] 1.0 {ratio} Low 1.1-2.5 [facility] ([place]) Comment on above: Performed By: #### C BC, ADIFF, ANEU, HFP, CMP, GFR #### [address] [address] ALP [Catalytic activity/Vol] 145 U/L High 40-135 [facility] ([place]) Comment on above: Performed By: #### C BC, ADIFF, ANEU, HFP, CMP, GFR #### [address] [address] ALT [Catalytic activity/Vol] 265 U/L High 16-63 [facility] ([place]) Comment on above: Performed By: #### C BC, ADIFF, ANEU, HFP, CMP, GFR #### [address] [address] AST [Catalytic activity/Vol] 283 U/L High 10-40 [facility] ([place]) Comment on above: Performed By: #### C BC, ADIFF, ANEU, HFP, CMP, GFR #### [address] [address] Bili Total 1.5 mg/dL High 0.2-1.0 [facility] ([place]) Comment on above: Result Comment: Use of this assay is not recommended for patients undergoing treatment with eltrombopag due to the potential for falsely elevated results. Performed By: #### C BC, ADIFF, ANEU, HFP, CMP, GFR #### [address] [address] BUN/Creatinine Ratio 20 ratio Normal 7-27 [facility] [place] Comment on above: Performed By: #### C BC, ADIFF, ANEU, HFP, CMP, GFR #### [address] [address] Calcium [Mass/Vol] 8.7 mg/dL Normal 8.4-10.2 [facility] ([place]) Comment on above: Performed By: #### C BC, ADIFF, ANEU, HFP, CMP, GFR #### [address] [address] Chloride [Moles/Vol] 103 mmol/L Normal 98-107 [facility] [place] Comment on above: Performed By: #### C BC, ADIFF, ANEU, HFP, CMP, GFR #### [address] [address] CO2 [Moles/Vol] 27 mmol/L Normal 23-31 [facility] ([place]) Comment on above: Performed By: #### C BC, ADIFF, ANEU, HFP, CMP, GFR #### [address] [address] Creatinine [Mass/Vol] 1.02 mg/dL Normal 0.70-1.30 [facility] ([place]) Comment on above: Performed By: #### C BC, ADIFF, ANEU, HFP, CMP, GFR #### [address] [address] Electrolyte Balance 8.0 mEq/L Normal 4.0-15.0 [facility] ([place]) Comment on above: Performed By: #### C BC, ADIFF, ANEU, HFP, CMP, GFR #### [address] [address] Globulin 3.3 G/dL Normal [facility] ([place]) Comment on above: Performed By: #### C BC, ADIFF, ANEU, HFP, CMP, GFR #### [address] [address] Glucose [Mass/Vol] 156 mg/dL High 80-115 [facility] ([place]) Comment on above: Performed By: #### C BC, ADIFF, ANEU, HFP, CMP, GFR #### [address] [address] Potassium [Moles/Vol] 4.4 mmol/L Normal 3.5-5.1 [facility] ([place]) Comment on above: Performed By: #### C BC, ADIFF, ANEU, HFP, CMP, GFR #### [address] [address] Sodium [Moles/Vol] 138 mmol/L Normal 136-145 [facility] ([place] Comment on above: Performed By: #### C BC, ADIFF, ANEU, HFP, CMP, GFR #### [place] [id number] Total Protein 6.7 G/dL Normal 6.4-8.2 [facility] ([place]) Comment on above: Performed By: #### C BC, ADIFF, ANEU, HFP, CMP, GFR #### [place] [id number] [place] [address] Urea nitrogen [Mass/Vol] 20 mg/dL High 7-18 [facility] ([place]) Comment on above: Performed By: #### C BC, ADIFF, ANEU, HFP, CMP, GFR #### [facility] [address] [place] [address] ABD/PELVIS W/ IV CONTRAST ONLYon 01-10-2023 [...] 01/10/2023 12:06:08 AM Ordering Provider: LATOYA HERRERA [facility] ([place]) LABORATORYOrdered By: Amina Lanza on 01-10-2023 Lactate [Moles/Vol] 1.5 mmol/L Invalid Interpretation Code 0.2 - 2.0 mmol/L AH Auto Chem SS LABORATORYOrdered By: Vincent Tello on 01-10-2023 ACINETOBACTER CALCOACETICUS-BAUMANNI I COMPLEX DNA:PRTHR:PT:BLD.POS GROWTH:ORD:NON-PROBE.A MP.TAR Not Detected *NA* (01/10/23 1:37 PM) Invalid Interpretation Code Not Detected AH Auto Microbiology GL SS BACTERIAL METHICILLIN RESISTANCE MECA+MECC GENES+SCCMEC+ORFX JUNCTION:PRTHR:PT:ISOL ATE/SPECIMEN:ORD:MOLGE N Not Applicable *NA* (01/10/23 1:37 PM) Invalid Interpretation Code Not Detected AH Auto Microbiology GL SS BACTEROIDES FRAGILIS DNA:PRTHR:PT:BLD.POS GROWTH:ORD:NON-PROBE.A MP.TAR Not Detected *NA* (01/10/23 1:37 PM) Invalid [...] Auto Microbiology GL SS EMEKA AURIS DNA:PRTHR:PT:BLD.POS GROWTH:ORD:NON-PROBE.A MP.TAR Not Detected *NA* (01/10/23 1:37 PM) Invalid [...] Auto Microbiology GL SS CRYPTOCOCCUS GATTII+NEOFORMANS DNA:PRTHR:PT:BLD.POS GROWTH:ORD:NON-PROBE.A MP.TAR Not Detected *NA* (01/10/23 1:37 PM) Invalid [...] AH Auto Microbiology GL SS ENTEROBACTERALES DNA:PRTHR:PT:BLD.POS GROWTH:ORD:NON-PROBE.A MP.TAR Detected *ABN* (01/10/23 1:37 PM) Invalid Interpretation Code Not Detected [facility] Auto Microbiology GL SS ENTEROCOCCUS FAECALIS DNA:PRTHR:PT:BLD.POS GROWTH:ORD:NON-PROBE.A MP.TAR Not Detected *NA* (01/10/23 1:37 PM) Invalid Interpretation Code Not Detected AH Auto Microbiology GL SS ENTEROCOCCUS FAECIUM DNA:PRTHR:PT:BLD.POS GROWTH:ORD:NON-PROBE.A MP.TAR Not Detected *NA* (01/10/23 1:37 PM) Invalid [...] Auto Microbiology GL SS KLEBSIELLA AEROGENES DNA:PRTHR:PT:BLD.POS GROWTH:ORD:NON-PROBE.A MP.TAR Detected *ABN* (01/10/23 1:37 PM) Invalid Interpretation Code Not Detected AH Auto Microbiology GL SS KLEBSIELLA PNEUMONIAE+KLEBSIELLA VARIICOLA+KLEBSIELLA QUASIPNEUMONIAE DNA:PRTHR:PT:BLD.POS GROWTH:ORD:NON-PROBE.A MP.TAR Not Detected *NA* (01/10/23 1:37 PM) Invalid [...] Auto Microbiology GL SS SALMONELLA SP DNA:PRTHR:PT:BLD.POS GROWTH:ORD:NON-PROBE.A MP.TAR Not Detected *NA* (01/10/23 1:37 PM) Invalid Interpretation Code Not Detected AH Auto Microbiology GL SS STAPHYLOCOCCUS EPIDERMIDIS DNA:PRTHR:PT:BLD.POS GROWTH:ORD:NON-PROBE.A MP.TAR Not Detected *NA* (01/10/23 1:37 PM) Invalid Interpretation Code Not Detected AH Auto Microbiology GL SS STAPHYLOCOCCUS LUGDUNENSIS DNA:PRTHR:PT:BLD.POS GROWTH:ORD:NON-PROBE.A MP.TAR Not Detected *NA* (01/10/23 1:37 PM) Invalid Interpretation Code Not Detected AH Auto Microbiology GL SS Staphylococcus sp DNA CELENA+non-probe Ql (Pos bld culture) Not Detected *NA* (01/10/23 1:37 PM) Invalid Interpretation Code Not Detected AH Auto Microbiology GL SS STENOTROPHOMONAS MALTOPHILIA DNA:PRTHR:PT:BLD.POS GROWTH:ORD:NON-PROBE.A MP.TAR Not Detected *NA* (01/10/23 1:37 PM) Invalid [...] Lactic Acid Lvl 1.5 mmol/L Normal 0.2-2.0 [facility] ([place]) Comment on above: Order Comment: Order ed secondary to Lactic Acid result greater than or equal to 2.0 Performed By: #### L AC #### [address] [address] Lactic Acid Lvl 2.0 mmol/L Normal 0.2-2.0 [facility] ([place]) Comment on above: Performed By: #### C BC, ADIFF, ANEU, HFP, CMP, GFR #### [place] [id number] LIPon 01-10-2023 Lipase Level 17 U/L Normal 12-53 [facility] ([place]) Comment on above: Result Comment: No te - New Reference Range in effect 20 Performed By: #### C BC, ADIFF, ANEU, HFP, CMP, GFR #### [place] [address] Lipase Level 18 U/L Normal 16-77 [facility] ([place] Comment on above: Performed By: #### C BC, ADIFF, ANEU, HFP, CMP, GFR #### [place] [id number] MGon 01-10-2023 Magnesium [Mass/Vol] 1.8 mg/dL Normal 1.6-2.4 [facility] Comment on above: Performed By: #### C BC, ADIFF, ANEU, HFP, CMP, GFR #### [place] [address] MRI MRCPon 01-10-2023 MRI MRCP ORIGINAL EXAMINATION: [...] Date: 01/10/2023 4:30:41 PM Ordering Provider: JULIANA MOSQUEDA [facility] ([place]) No Panel Informationon 01-10 Microscopic examination of blood, culture Klebsiella pneumoniae Isolated from anaerobe bottle only. Refer to previous culture for susceptibility. [id number] collected on 01/10/23 [facility] PROon 01-10-2023 INR Coag (PPP) [Relative time] 1.0 {INR} Normal [facility] ([place]) Comment on above: Result Comment: The [employer] (CHEST, 1992, 102:312S-25S) recommended therapeutic range for oral anticoagulant therapy is: LOW RISK: Prophylaxis of venous thrombosis INR: 2.0-3.0 Treatment of pulmonary embolism 2.0-3.0 Prevention of systemic embolism 2.0-3.0 HIGH RISK: Mechanical prosthetic valves 2.5-3.5 Performed By: #### C BC, ADIFF, ANEU, HFP, CMP, GFR #### [address] [address] PT Coag (PPP) [Time] 12.1 s Normal 9.0-14.8 [facility] Comment on above: Result Comment: Effe ctive 03/26/08, Protime results may be affected by some antibiotics (i.e. Ciprofloxacin, Azithromycin, Bactrim) which may potentiate the action of oral anticoagulants, with further increases in Protime/INR. Performed By: #### C BC, ADIFF, ANEU, HFP, CMP, GFR #### [place] [id number] [place], [place] [id number] US ABDOMEN LIMITEDon 023 US ABDOMEN LIMITED [...] 01/10/2023 1:05:30 AM Ordering Provider: LATOYA HERRERA [facility] ([place]) XR FOREIGN BODY LOC EYE BILA TERALon [...] 01/10/2023 1:58:20 PM Ordering Provider: JULIANA MOSQUEDA [facility] ([place]) LABORATORYOrdered By: SYSTEM SYSTEM on 01-09-2023 Albumin [...] Basophil, Absolute 0.0 10 3/mcL Normal 0.0-0.2 [facility] Comment on above: Performed By: #### C SEBASTIAN, RENE, ANEU, HFP, CMP, GFR #### [address] [address] Basophils/100 WBC (Bld) 0.5 % Normal 0.0-2.5 [facility] ([place] Comment on above: Performed By: #### C SEBASTIAN, RENE, ANEU, HFP, CMP, GFR #### [address] [address] Eosinophil, Absolute 0.1 10 3/mcL Normal 0.0-0.4 [facility] ([place]) Comment on above: Performed By: #### C SEBASTIAN, RENE, ANEU, HFP, CMP, GFR #### [address] [address] Eosinophils/100 WBC (Bld) 1.5 % Normal 0.0-7.0 [facility] ([place] Comment on above: Performed By: #### C BC, ADIFF, ANEU, HFP, CMP, GFR #### [address] [address] Lymphocyte, Absolute 1.0 10 3/mcL Normal 0.8-3.9 [facility] ([place]) Comment on above: Performed By: #### C BC, ADIFF, ANEU, HFP, CMP, GFR #### [address] [address] Lymphocytes/100 WBC (Bld) 17.8 % Normal 10.0-50.0 [facility] ([place] Comment on above: Performed By: #### C BC, ADIFF, ANEU, HFP, CMP, GFR #### [address] [address] Monocyte, Absolute 0.5 10 3/mcL Normal 0.2-1.0 [facility] [place] Comment on above: Performed By: #### C BC, ADIFF, ANEU, HFP, CMP, GFR #### [address] [address] Monocytes/100 WBC (Bld) 7.9 % Normal 1.7-13.0 [facility] ([place] Comment on above: Performed By: #### C BC, ADIFF, ANEU, HFP, CMP, GFR #### [address] [address] Neutrophils/100 WBC (Bld) 72.3 % Normal 37.0-80.0 [facility] ([place] Comment on above: Performed By: #### C BC, ADIFF, ANEU, HFP, CMP, GFR #### [address] [address] .GFRon 11-07-2022 GFR 95 ml/min/1.73sqm Normal [facility] ([place] Comment on above: Result Comment: GFR [...] BC, ADIFF, ANEU, HFP, CMP, GFR #### [address] [address] GFR Non- 78 ml/min/1.73sqm Normal [facility] ([place] Comment on above: Result Comment: GFR Population [...] BC, ADIFF, ANEU, HFP, CMP, GFR #### [address] [address] .MDWon 11-07-2022 Monocyte Distribution Width 18.21 Normal 0.00-20.00 [facility] ([place] Comment on above: Result Comment: For ED adult patients suspected of sepsis, MDW<=20.0 does not rule out sepsis or risk of sepsis Performed By: #### C BC, ADIFF, ANEU, HFP, CMP, GFR #### [address] [address] .NEUABSon 11-07-2022 Neutrophil, Absolute 4.2 10 3/mcL Normal 2.9-6.2 [facility] ([place]) Comment on above: Performed By: #### C BC, ADIFF, ANEU, HFP, CMP, GFR #### [place] [id number] .Urinalysis Microscopic (AO) on 11-07-2022 UA Bacteria Trace Abnormal [facility] ([place]) Comment on above: Performed By: #### L AC #### [place] [id number] UA RBC 10-15 Abnormal None Seen [facility] ([place]) Comment on above: Performed By: #### L AC #### [place] [address] UA Squam Epithelial 5-10 Abnormal None Seen [facility] ([place]) Comment on above: Performed By: #### L AC #### [place] [address] UA WBC 5-10 Abnormal None Seen [facility] ([place]) Comment on above: Performed By: #### L AC #### [place] [id number] AMYon 11-07-2022 Amylase [Catalytic activity/Vol] 59 U/L Normal 25-115 [facility] [facility] Comment on above: Performed By: #### C BC, ADIFF, ANEU, HFP, CMP, GFR #### [place] [address] CBCon 11-07-2022 Erythrocyte distribution width (RBC) [Ratio] 14.4 % Normal 11.5-14.5 [facility]) Comment on above: Performed By: #### C BC, ADIFF, ANEU, HFP, CMP, GFR #### [place] [address] Hematocrit (Bld) [Volume fraction] 45.7 % Normal 42.0-52.0 [facility] ([place]) Comment on above: Performed By: #### C BC, ADIFF, ANEU, HFP, CMP, GFR #### [place] [address] Hgb 15.9 G/dL Normal 14.0-18.0 [facility] ([place] Comment on above: Performed By: #### C BC, ADIFF, ANEU, HFP, CMP, GFR #### [place] [address] MCH (RBC) [Entitic mass] 30.9 pg Normal 27.0-31.2 [facility] ([place] Comment on above: Performed By: #### C BC, ADIFF, ANEU, HFP, CMP, GFR #### [place] [address] MCHC 34.8 G/dL Normal 31.8-35.4 [facility] ([place] Comment on above: Performed By: #### C BC, ADIFF, ANEU, HFP, CMP, GFR #### [place] [address] MCV (RBC) [Entitic vol] 88.9 fL Normal 80.0-94.0 [facility] ([place] Comment on above: Performed By: #### C BC, ADIFF, ANEU, HFP, CMP, GFR #### [place] [address] Platelet 232 10 3/mcL Normal 130-400 [facility] ([place] Comment on above: Performed By: #### C BC, ADIFF, ANEU, HFP, CMP, GFR #### [place] [address] Platelet mean volume (Bld) [Entitic vol] 6.7 fL Low 7.4-10.4 [facility] ([place] Comment on above: Performed By: #### C BC, ADIFF, ANEU, HFP, CMP, GFR #### [place] [id number] RBC 5.14 10 6/mcL Normal 4.04-6.13 [facility] ([place] Comment on above: Performed By: #### C BC, ADIFF, ANEU, HFP, CMP, GFR #### [place] [id number] WBC 5.9 10 3/mcL Normal 4.6-10.8 [facility] ([place] Comment on above: Performed By: #### C BC, ADIFF, ANEU, HFP, CMP, GFR #### [address] [address] CMPon 11-07-2022 Albumin Level 4.1 G/dL Normal 3.4-4.8 [facility] ([place] Comment on above: Performed By: #### C BC, ADIFF, ANEU, HFP, CMP, GFR #### [address] [address] Albumin/Globulin [Mass ratio] 1.3 {ratio} Normal 1.1-2.5 [facility] ([place] Comment on above: Performed By: #### C BC, ADIFF, ANEU, HFP, CMP, GFR #### [address] [address] ALP [Catalytic activity/Vol] 84 U/L Normal 40-135 [facility] ([place] Comment on above: Performed By: #### C BC, ADIFF, ANEU, HFP, CMP, GFR #### [place] [id number] ALT [Catalytic activity/Vol] 42 U/L Normal 16-63 [facility] ([place] Comment on above: Performed By: #### C BC, ADIFF, ANEU, HFP, CMP, GFR #### [place] [id number] AST [Catalytic activity/Vol] 25 U/L Normal 10-40 [facility] ([place] Comment on above: Performed By: #### C BC, ADIFF, ANEU, HFP, CMP, GFR #### [place] [id number] Bili Total 1.0 mg/dL Normal 0.2-1.0 [facility] ([place]) Comment on above: Result Comment: Use of this assay is not recommended for patients undergoing treatment with eltrombopag due to the potential for falsely elevated results. Performed By: #### C BC, ADIFF, ANEU, HFP, CMP, GFR #### [place] [id number] BUN/Creatinine Ratio 19 ratio Normal 7-27 [facility] Comment on above: Performed By: #### C BC, ADIFF, ANEU, HFP, CMP, GFR #### [address] [address] Calcium [Mass/Vol] 8.5 mg/dL Normal 8.4-10.2 [facility] ([place]) Comment on above: Performed By: #### C BC, ADIFF, ANEU, HFP, CMP, GFR #### [address] [address] Chloride [Moles/Vol] 101 mmol/L Normal 98-107 [facility] [place] Comment on above: Performed By: #### C BC, ADIFF, ANEU, HFP, CMP, GFR #### [address] [address] CO2 [Moles/Vol] 27 mmol/L Normal 23-31 [facility] ([place] Comment on above: Performed By: #### C BC, ADIFF, ANEU, HFP, CMP, GFR #### [place] [address] Creatinine [Mass/Vol] 0.97 mg/dL Normal 0.70-1.30 [facility] ([place]) Comment on above: Performed By: #### C BC, ADIFF, ANEU, HFP, CMP, GFR #### [address] [address] Electrolyte Balance 9.0 mEq/L Normal 4.0-15.0 [facility] ([place]) Comment on above: Performed By: #### C BC, ADIFF, ANEU, HFP, CMP, GFR #### [address] [address] Globulin 3.2 G/dL Normal [facility] ([place] Comment on above: Performed By: #### C BC, ADIFF, ANEU, HFP, CMP, GFR #### [address] [address] Glucose [Mass/Vol] 113 mg/dL Normal 80-115 [facility] ([place]) Comment on above: Performed By: #### C BC, ADIFF, ANEU, HFP, CMP, GFR #### [address] [address] Potassium [Moles/Vol] 4.6 mmol/L Normal 3.5-5.1 [facility] ([place]) Comment on above: Performed By: #### C BC, ADIFF, ANEU, HFP, CMP, GFR #### [place] [id number] Sodium [Moles/Vol] 137 mmol/L Normal 136-145 [facility] ([place] Comment on above: Performed By: #### C BC, ADIFF, ANEU, HFP, CMP, GFR #### [place] [id number] Total Protein 7.3 G/dL Normal 6.4-8.2 [facility] ([place] Comment on above: Performed By: #### C BC, ADIFF, ANEU, HFP, CMP, GFR #### [place] [id number] Urea nitrogen [Mass/Vol] 18 mg/dL Normal 7-18 [facility] ([place] Comment on above: Performed By: #### C BC, ADIFF, ANEU, HFP, CMP, GFR #### [place] [id number] CRPon 11-07-2022 CRP [Mass/Vol] mg/L Normal 0.0-0.9 [facility] ([place] Comment on above: Performed By: #### C BC, ADIFF, ANEU, HFP, CMP, GFR #### [place] [id number] CT ABD/PELVIS W/ IV CONTRAST ONLYon 11-07-2022 [...] Date: 11/07/2022 4:25:50 PM Ordering Provider: KELSI Sahni [facility] ([place]) LIPon 11-07-2022 Lipase Level 15 U/L Low 16-77 [facility] ([place]) Comment on above: Performed By: #### C BC, ADIFF, ANEU, HFP, CMP, GFR #### [address] [address] MGon 11-07-2022 Magnesium [Mass/Vol] 2.0 mg/dL Normal 1.8-2.4 [facility] [place] Comment on above: Performed By: #### C BC, ADIFF, ANEU, HFP, CMP, GFR #### [address] [address] UAon 11-07-2022 Color (U) Yellow Normal [facility] ([place]) Comment on above: Performed By: #### L AC #### [address] [address] Glucose (U) [Mass/Vol] Negative Normal Negative [facility] ([place]) Comment on above: Performed By: #### L AC #### [address] [address] Ketones Ql (U) Negative Normal Negative [facility] ([place] Comment on above: Performed By: #### L AC #### [address] [address] UA Appear Clear Normal Clear [facility] ([place] Comment on above: Performed By: #### L AC #### [address] [address] UA Blood Moderate Abnormal Negative [facility] ([place] Comment on above: Performed By: #### L AC #### [address] [address] UA Leuk Est Trace Abnormal Negative [facility] ([place]) Comment on above: Performed By: #### L AC #### [address] [address] UA Nitrite Negative Normal Negative [facility] ([place]) Comment on above: Performed By: #### L AC #### [address] [address] UA pH 7.0 Normal 5.0 - 8.0 [facility] ([place]) Comment on above: Performed By: #### L AC #### [address] [address] UA Protein Negative Normal Negative [facility] ([place]) Comment on above: Performed By: #### L AC #### [facility] [address] [place] [address] UA Spec Grav 1.025 Normal 1.015-1.02 5 [facility] ([place]) Comment on above: Performed By: #### L AC #### [facility] [address] [place] [address] UA Specimen Type Clean Catch Normal [facility] ([place]) Comment on above: Performed By: #### L AC #### [facility] [address] [place] [address] UA Urobilinogen 0.2 E.U./dL Normal 0.2-1.0 [facility] ([place]) Comment on above: Performed By: #### L AC #### [address] [address] Urobilinogen (U) [Mass/Vol] Negative Normal Negative [facility] ([place]) Comment on above: Performed By: #### L AC #### [address] [address] XR ERCP BILIARY AND PANCREAT IC DUCTon [...] by: Pineda Candelario MD Preliminary Report By: Pienda Candelario MD Electronically signed By Pineda Candelario MD Dictated Date: 08/27/2022 3:44:04 AM Prelim Date: 08/27/2022 3:46:47 AM Sign Date: 08/27/2022 3:46:47 AM Ordering Provider: CORNELIO Sahni [facility] ([place]) INR in Blood by Coagulation assayon 08-18-2022 INR Coag (Bld) [Relative time] 1.0 {INR} [facility] Work Phone: Laboratory - Coagulationon 1 10-19-2021 aPTT Coag (Bld) [Time] 28.5 s 24.1-36.2 [facility] Work Phone: PT Coag (PPP) [Time] 13.3 s 11.7-14.9 [facility] Work Phone: [phone] Platelets bldon 08-18-2022 Platelets (Bld) [#/Vol] 255 10*3/uL 150-450 [facility] Work Phone: Absolute lymphocyte counton 06-05-2022 Lymphocytes Auto (Unsp spec) [#/Vol] 2.62 10*3/uL 0.83-4.51 [facility] Work Phone: Basophil percentageon 2021 Basophils/100 WBC (Bld) 0.6 % 0-1 [facility] Work Phone: Bilirubin [Mass/Vol] 0.70 mg/dL 0.20-1.00 [facility] Work Phone: Comment on above: For patients on eltr ombopag therapy, use of Dimension [place] TBIL is not recommended. Chloride [Moles/Vol] 106 mmol/L 98-107 [facility] Work Phone: Eosinophils/100 WBC (Bld) 3.9 % 0-5 [facility] Work Phone: Glucose [Mass/Vol] 140 mg/dL 74-106 [facility] Work Phone: Comment on above: Fasting Glucose resu lt greater than or equal to 126 mg/dL suggests DIABETES MELLITUS per A.D.A. criteria. Lactate [Moles/Vol] 0.8 mmol/L 0.4-2.0 [facility] Work Phone: Neutrophils (Bld) [#/Vol] 4.9 10*3/uL 2.0-7.7 [facility] Work Phone: Neutrophils/100 WBC (Bld) 55.3 % 47-70 [facility] Work Phone: Potassium [Moles/Vol] 4.1 mmol/L 3.5-5.1 [facility] Work Phone: Protein [Mass/Vol] 7.3 g/dL 6.4-8.2 [facility]: Sodium [Moles/Vol] 139 mmol/L 136-145 [facility] Work Phone: WBC (Bld) [#/Vol] 8.8 10*3/uL 4.4-11.0 [facility] Work Phone: Blood erythrocytes count (nu mber/volume)on 06-05-2022 RBC (Bld) [#/Vol] 5.11 10*6/uL 4.6-6.2 [facility]: Blood hemoglobin measurement (mass/volume)on 06-05-2022 Hemoglobin (Bld) [Mass/Vol] 15.6 g/dL 13.0-16.5 [facility] Work Phone: Blood lymphocytes/100 leukoc yteson 06-05-2022 Lymphocytes/100 WBC (Bld) 29.8 % 19-41 [facility] Work Phone: [phone] Blood monocytes/100 leukocyt eson 06-05-2022 Monocytes/100 WBC (Bld) 9.8 % 0-10 [facility] Work Phone: Blood platelet mean volumeon 06-05-2022 Platelet mean volume (Bld) [Entitic vol] 8.7 fL 6.2-12.0 [facility] Work Phone: [phone] Determination of erythrocyte mean corpuscular volume (MCV)on 06-05-2022 MCV (RBC) [Entitic vol] 89.6 fL 80-94 [facility] Work Phone: Direct bilirubinon Bilirubin.direct [Mass/Vol] 0.20 mg/dL 0.00-0.30 [facility] Work Phone: Hematocrit Auto (Bld) [Volum e fraction]on 06-05-2022 Hematocrit (Bld) [Volume fraction] 45.8 % 40-54 [facility] Work Phone: Laboratory - Chemistry and C hemistry - challengeon 06-05-2022 ALP [Catalytic activity/Vol] 71 U/L 45-117 [facility] Work Phone: ALT [Catalytic activity/Vol] 36 U/L 16-61 [facility] Work Phone: CO2 [Moles/Vol] 24.0 mmol/L 21.0-32.0 [facility] Work Phone: Globulin (S) [Mass/Vol] 3.9 g/dL 2.2-4.2 [facility] Work Phone: Lipase [Catalytic activity/Vol] 60 U/L 73-393 [facility] Work Phone: Urea nitrogen/Creatinine [Mass ratio] 22.4 mg/mg 10-20 [facility] Work Phone: Laboratory - Hematology and Cell countson 06-05-2022 Erythrocyte distribution width (RBC) [Entitic vol] 45.9 fL 35.1-43.9 [facility] Work Phone: Erythrocyte distribution width (RBC) [Ratio] 13.9 % 11.6-14.6 [facility] Work Phone: Immature granulocytes/100 WBC (Bld) 0.600 % 0.0-0.9 [facility] Work Phone: Comment on above: IG% - Immature Granu locytes (promyelocytes, myelocytes and metamyelocytes) > 1% indicates that a LEFT SHIFT is Present. MCH (RBC) [Entitic mass] 30.5 pg 27.0-32.0 [facility] Work Phone: Nucleated RBC/100 WBC (Bld) [Ratio] 0 % 0-5 [facility] Work Phone: MCHC Auto (RBC) [Mass/Vol]on 06-05-2022 MCHC (RBC) [Mass/Vol] 34.1 g/dL 32-36 [facility] Work Phone: No Panel Informationon 06-05 Estimated Creatinine Clearance Calc 74.86 ml/min [facility] Work Phone: Estimated GFR (MDRD) Amer 90 mL/min >60 [facility] Work Phone: Comment on above: GFR Calc Estimated GFR (MDRD) Non-Af Amer 75 mL/min >60 [facility] Work Phone: Comment on above: Non- GFR Calc Platelets bldon 06-05-2022 Platelets (Bld) [#/Vol] 298 10*3/uL 150-450 [facility] Work Phone: Serum or plasma albumin sammy urement (mass/volume)on 06-05-2022 Albumin [Mass/Vol] 3.4 g/dL 3.2-5.0 [facility] Work Phone: Serum or plasma calcium sammy urement (mass/volume)on 06-05-2022 Calcium [Mass/Vol] 9.0 mg/dL 8.5-10.1 [facility] Work Phone: Serum or plasma creatinine m easurement (mass/volume)on 06-05-2022 Creatinine [Mass/Vol] 1.07 mg/dL 0.70-1.30 [facility] Work Phone: Comment on above: The validity of the calculated GFR & GFRAA in patients over 70 years has not been determined. Clinical correlation is essential. Serum or plasma urea nitroge n measurement (mass/volume)on 06-05-2022 Urea nitrogen [Mass/Vol] 24 mg/dL 7-18 [facility] Work Phone: Thin prep Papanicolaou smear with manual screeningon 06-05-2022 Thin prep Papanicolaou smear with manual screening 15 U/L 15-37 [facility] Work Phone: Thin prep Papanicolaou smear with manual screening 9 5-15 [facility] Work Phone: XR ERCP BILIARY AND [...] 06/02/2022 8:55:45 PM Ordering Provider: CORNELIO Sahni [facility] ([place]) CNOVon 05-25-2022 CNOV Office Visit (GENSWS ) -------- GUSTAVO CERDA ([id number]) 1960 M Date Time Provider Department 05/25/22 [...] back up with Dr. Alex and the barrel dedenting machine operator on an as-needed basis. Referring Provider: RENETTA ALEX [[id number]] Allergies As of Date: 05/25/2022 (No Known Allergies) Date Reviewed: 05/19/2022 Reviewed by: Nel Emerson, RT(R) - Fully Assessed Reason for Visit: Follow Up [171] Cmt: Drain, removal Primary Visit Diagnosis:Aftercare [Z51.89] Other Visit Diagnosis:Abnormal biliary HIDA scan [R94.8] Order(s):CONSULT TO GENERAL SURGERY [9011] Order #: [id number]: 1 Prescriptions as of 05/25/2022 - lisinopril (ZESTRIL, PRINIVIL) 20 mg tablet Take 20 mg by mouth once daily. - amLODIPine (NORVASC) 10 mg tablet Take 10 mg by mouth once daily. - acetaminophen (TYLENOL ORAL) Take by mouth as needed. Problem List As Of Date: 05/25/2022 (None) Encounter Status:Closed by KOLE MANCIA on 05/25/22 [facility] Tae 05-25-2022 [facility] Telephone ([employer]) -------- GUSTAVO CERDA ([id number]) 1960 M Date Time Provider Department 05/25/22 RENETTA ALEX During your visit today, we [...] Fully Assessed Reason for Visit: Patient Question [7357] Prescriptions as of 05/31/2022 - lisinopril (ZESTRIL, PRINIVIL) 20 mg tablet Take 20 mg by mouth once daily. - amLODIPine (NORVASC) 10 mg tablet Take 10 mg by mouth once daily. - acetaminophen (TYLENOL ORAL) Take by mouth as needed. Problem List As Of Date: 05/25/2022 (None) Encounter Status:[facility]) -------- GUSTAVO CERDA ([id number]) 1960 M Date Time Provider Department 05/24/22 RENETTA ALEX During your visit today, we recorded the following information about you: Renetta Alex MD 05/24/2022 7:54 PM Signed Patient denies abdominal pain He had a recent CT scan, with minimal fluid and pneumobilia due to stent Will contact patient's barrel dedenting machine operator for discussion of removal of catheter. Will [...] Status:Closed by RENETTA ALEX on 05/24/22 Normal [facility] CT ABDOMEN W IVCONon 022 CT ABDOMEN W IVCON * * *Final Report* * * DATE OF EXAM: May 20 2022 9:11AM [facility] 0533 - CT ABDOMEN W IVCON / [...] Bones/Soft Tissues: Degenerative changes. Lower thorax: Unremarkable. Stoneworker (topogram) images: No additional findings. IMPRESSION: Internal biliary drainage catheter in place. External catheter terminates in the gallbladder fossa. Small amount of air and fluid in this region as well as pneumobilia. No discrete collection to suggest abscess at this time. Incidental horseshoe kidney [employer]: P[employer] Transcribe Date/Time: May 20 2022 11:59A Dictated by : PROSPER GARCIA MD This examination was interpreted and the report reviewed and electronically signed by: PROSPER GARCIA MD on May 20 2022 12:11PM EST [id number] Normal [facility] Absolute lymphocyte counton 05-07-2022 Lymphocytes Auto (Unsp spec) [#/Vol] 2.28 10*3/uL 0.83-4.51 [facility] Work Phone: Basophil percentageon 2021 Amylase [Catalytic activity/Vol] 55 U/L 25-115 [facility] Work Phone: [phone] Basophils/100 WBC (Bld) 0.5 % 0-1 [facility] Work Phone: [phone] Bilirubin [Mass/Vol] 1.40 mg/dL 0.20-1.00 [facility] Work Phone: [phone] Comment on above: For patients on eltr ombopag therapy, use of Dimension [place] TBIL is not recommended. Chloride [Moles/Vol] 105 mmol/L 98-107 [facility] Work Phone: Eosinophils/100 WBC (Bld) 3.3 % 0-5 [facility] Work Phone: [phone] Glucose [Mass/Vol] 167 mg/dL 74-106 [facility] Work Phone: [phone] Comment on above: Fasting Glucose resu lt greater than or equal to 126 mg/dL suggests DIABETES MELLITUS per A.D.A. criteria. Neutrophils (Bld) [#/Vol] 3.0 10*3/uL 2.0-7.7 [facility] Work Phone: Neutrophils/100 WBC (Bld) 49.3 % 47-70 [facility] Work Phone: [phone] Potassium [Moles/Vol] 4.1 mmol/L 3.5-5.1 [facility] Work Phone: Protein [Mass/Vol] 6.9 g/dL 6.4-8.2 [facility] Work Phone: Sodium [Moles/Vol] 137 mmol/L 136-145 [facility] Work Phone: WBC (Bld) [#/Vol] 6.0 10*3/uL 4.4-11.0 [facility] Work Phone: Blood erythrocytes count (nu mber/volume)on 05-07-2022 RBC (Bld) [#/Vol] 4.62 10*6/uL 4.6-6.[facility] Work Phone: Blood hemoglobin measurement (mass/volume)on 05-07-2022 Hemoglobin (Bld) [Mass/Vol] 14.4 g/dL 13.0-16.5 [facility] Work Phone: Blood lymphocytes/100 leukoc yteson 05-07-2022 Lymphocytes/100 WBC (Bld) 37.7 % 19-41 [facility] Work Phone: Blood monocytes/100 leukocyt eson 05-07-2022 Monocytes/100 WBC (Bld) 8.9 % 0-10 [facility] Work Phone: Blood platelet mean volumeon 05-07-2022 Platelet mean volume (Bld) [Entitic vol] 8.5 fL 6.2-12.0 [facility] Work Phone: Determination of erythrocyte mean corpuscular volume (MCV)on 05-07-2022 MCV (RBC) [Entitic vol] 89.2 fL 80-94 [facility] Work Phone: Hematocrit Auto (Bld) [Volum e fraction]on 05-07-2022 Hematocrit (Bld) [Volume fraction] 41.2 % 40-54 [facility] Work Phone: Laboratory - Chemistry and C hemistry - challengeon 05-07-2022 ALP [Catalytic activity/Vol] 76 U/L 45-117 [facility] Work Phone: [phone] ALT [Catalytic activity/Vol] 26 U/L 16-61 [facility] Work Phone: CO2 [Moles/Vol] 28.0 mmol/L 21.0-32.0 [facility] Work Phone: [phone] Globulin (S) [Mass/Vol] 3.7 g/dL 2.2-4.2 [facility] Work Phone: [phone] Lipase [Catalytic activity/Vol] 67 U/L 73-393 [facility] Work Phone: Urea nitrogen/Creatinine [Mass ratio] 16.2 mg/mg 10-20 [facility] Work Phone: Laboratory - Hematology and Cell countson 05-07-2022 Erythrocyte distribution width (RBC) [Entitic vol] 47.6 fL 35.1-43.9 [facility] Work Phone: Erythrocyte distribution width (RBC) [Ratio] 14.6 % 11.6-14.6 [facility] Work Phone: Immature granulocytes/100 WBC (Bld) 0.300 % 0.0-0.9 [facility] Work Phone: Comment on above: IG% - Immature Granu locytes (promyelocytes, myelocytes and metamyelocytes) > 1% indicates that a LEFT SHIFT is Present. MCH (RBC) [Entitic mass] 31.2 pg 27.0-32.0 [facility] Work Phone: [phone] Nucleated RBC/100 WBC (Bld) [Ratio] 0 % 0-5 [facility] Work Phone: MCHC Auto (RBC) [Mass/Vol]on 05-07-2022 MCHC (RBC) [Mass/Vol] 35.0 g/dL 32-36 [facility] Work Phone: No Panel Informationon 05-07 Estimated GFR (MDRD) Amer 107 mL/min >60 [facility] Work Phone: Comment on above: GFR Calc Estimated GFR (MDRD) Non-Af Amer 88 mL/min >60 [facility] Work Phone: Comment on above: Non- GFR Calc Platelets bldon 05-07-2022 Platelets (Bld) [#/Vol] 247 10*3/uL 150-450 [facility] Work Phone: Serum or plasma albumin sammy urement (mass/volume)on 05-07-2022 Albumin [Mass/Vol] 3.2 g/dL 3.2-5.0 [facility] Work Phone: Serum or plasma albumin/glob ulin mass ratioon 05-07-2022 Albumin/Globulin [Mass ratio] 0.9 {ratio} 0.9-2.4 [facility] Work Phone: Serum or plasma calcium sammy urement (mass/volume)on 05-07-2022 Calcium [Mass/Vol] 8.6 mg/dL 8.5-10.1 [facility] Work Phone: Serum or plasma creatinine m easurement (mass/volume)on 05-07-2022 Creatinine [Mass/Vol] 0.93 mg/dL 0.70-1.30 [facility] Work Phone: Comment on above: The validity of the calculated GFR & GFRAA in patients over 70 years has not been determined. Clinical correlation is essential. Serum or plasma urea nitroge n measurement (mass/volume)on 05-07-2022 Urea nitrogen [Mass/Vol] 15 mg/dL 7-18 [facility] Work Phone: Thin prep Papanicolaou smear with manual screeningon 05-07-2022 Thin prep Papanicolaou smear with manual screening 13 U/L 15-37 [facility] Work Phone: Thin prep Papanicolaou smear with manual screening 4 5-15 [facility] Work Phone: Tae 05-03-2022 [facility] Telephone ([employer]) -------- GUSTAVO CERDA ([id number]) 1960 M Date Time Provider Department 05/03/22 [...] Encounter Status:Closed by RENETTA ALEX on 05/03/22 [facility] Tae 04-28-2022 [facility] Telephone ([employer]) -------- GUSTAVO CERDA ([id number]) 1960 M Date Time Provider Department 04/28/22 [...] Encounter Status:Closed by RENETTA ALEX on 04/28/22 [facility] 04-19-2022 [facility] Telephone ([employer]) -------- GUSTAVO CERDA ([id number]) 1960 M Date Time Provider Department 04/19/22 RENETTA ALEX During your visit today, we [...] Date: 04/19/2022 (None) Encounter Status:Closed by RENETTA ALEX on 04/19/22 [facility] GUSTAVO CERDA ([id number]) 1960 [place] Date Time Provider Department 04/12/22 RENETTA ALEX [...] Encounter Status:Closed by RENETTA ALEX on 04/12/22 [facility] 04-05-2022 [facility] Telephone ([employer]) -------- GUSTAVO CERDA ([id number]) 1960 Date Time Provider Department 04/05/22 RENETTA ALEX [...] Encounter Status:Closed by RENETTA ALEX on 04/05/22 [facility] 04-02-2022 [facility] Telephone (WSPROV) -------- GUSTAVO CERDA ([id number]) 1960 M Date Time Provider Department 04/02/22 [...] not in Epic. 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 told him that he should wait 2-3 [...] Encounter Status:Closed by RENETTA ALEX on 04/02/22 [facility] Telephone (GENSWS) -------- GUSTAVO CERDA ([id number]) 1960 M Date Time Provider Department 04/02/22 RENETTA ALEX During your visit today, we recorded the following information about you: Kenzie Echols LPN 04/02/2022 11:09 AM Signed Patient's Keisha called, patient had ERCP done 04/01/22 at [facility], Patient has complaint of mid-upper abdomen pain since procedure last less then 1 minute, pain scale 3-4, had it twice and woke him out of a sleep. States also had same pain once prior to the procedure yesterday. Fax a request to [facility] for ERCP records to be faxed and images pushed. Patient asking also about drain removal from abdomen. Please advise. Allergies As of Date: 04/02/2022 (No Known Allergies) Date Reviewed: 03/22/2022 Reviewed by: Kenzie Echols LPN - Fully Assessed Reason for Visit: Patient Question [4832] Cmt: pain in mid abd Prescriptions as of 04/07/2022 - lisinopril (ZESTRIL, PRINIVIL) 20 mg tablet Take 20 mg by mouth once daily. - amLODIPine (NORVASC) 10 mg tablet Take 10 mg by mouth once daily. - acetaminophen (TYLENOL ORAL) Take by mouth as needed. Problem List As Of Date: 04/02/2022 (None) Encounter Status:Closed by KENZIE ECHOLS on 04/07/22 [facility] LABORATORYOrdered By: Margo Kline on 04-01-2022 aPTT [...] Invalid Interpretation Code 150 - 450 10^3/mcL Workflow SS Potassium [Moles/Vol] 4.6 mmol/L Invalid Interpretation Code 3.5 - 5.0 mEq/L AH ADM SS Comment on above: Result Comment: Spec imen slightly hemolyzed. LABORATORYOrdered By: Jose Juan Yana [email or web address] on 03-31-2022 aPTT Coag (PPP) [Time] 29.9 [...] 10^3/mcL AH Workflow SS Lymphocytes/100 WBC (Bld) 35.5 % [...] % AH Workflow SS Neutrophils (Bld) [#/Vol] 3.0 103/mcL [...] 4.5 - 10.8 10^3/mcL AH Workflow SS CNPNon 03-29-2022 CNPN Telephone (GENAARONS) -------- GUSTAVO CERDA ([id number]) 1960 M Date Time Provider Department 03/29/22 [...] Fully Assessed Reason for Visit: Schedule Evaluation [4257] Prescriptions as of 03/29/2022 - lisinopril (ZESTRIL, PRINIVIL) 20 mg tablet Take 20 mg by mouth once daily. - amLODIPine (NORVASC) 10 mg tablet Take 10 mg by mouth once daily. - acetaminophen (TYLENOL ORAL) Take by mouth as needed. Problem List As Of Date: 03/29/2022 (None) Encounter Status:Closed by R[facility]LEX [facility] GUSTAVO CERDA ([id number]) 1960 M Date Time Provider Department 03/29/22 RENETTA ALEX During your visit today, we recorded the following information about you: Yong Land RN 03/29/2022 10:17 AM Signed Renetta Alex MD [facility] General Surgery Pool Please fax a referral to the following number: ?[facility] Request for ERCP with covered stent attention Cielo Need: demographics sheet Report of ERCP, operative report, CT scan, labs, HANDP from [facility]. Thank you Above medical records faxed to [facility], Attn: Cielo at [phone]. Fax conformation sheet received. Yong Land RN December03/31/2022 10:[address] Weaver office called office to inform us that patient is scheduled for ERCP tomorrow at [facility]. Yong Land RN 03/31/2022 4:[address] Zachariah CARBALLO. Yong Land RN Allergies As of Date: 03/29/2022 (No Known Allergies) Date Reviewed: 03/22/2022 Reviewed by: Kenzie Echols LPN - Fully Assessed Reason for Visit: Referral Request [124] Cmt: [facility] Prescriptions as of 03/31/2022 - lisinopril (ZESTRIL, PRINIVIL) 20 mg tablet Take 20 mg by mouth once daily. - amLODIPine (NORVASC) 10 mg tablet Take 10 mg by mouth once daily. - acetaminophen (TYLENOL ORAL) Take by mouth as needed. Problem List As Of Date: 03/29/2022 (None) Encounter Status:Closed by YONG LAND on 03/29/22 Normal [facility] Basophil percentageon 2021 Chloride [Moles/Vol] 100 mmol/L 98-107 [facility] Work Phone: Glucose [Mass/Vol] 132 mg/dL 74-106 [facility] Work Phone: Comment on above: Fasting Glucose resu lt greater than or equal to 126 mg/dL suggests DIABETES MELLITUS per A.D.A. criteria. Potassium [Moles/Vol] 4.4 mmol/L 3.5-5.1 [facility] Work Phone: Sodium [Moles/Vol] 133 mmol/L 136-145 [facility] Work Phone: Bilirubin Test strip Ql (U)o n 03-24-2022 Bilirubin Ql (U) Negative Negative [facility] Work Phone: Ketones Test strip Ql (U)on 03-24-2022 Ketones Ql (U) Negative Negative [facility] Work Phone: Laboratory - Chemistry and C hemistry - challengeon 03-24-2022 CO2 [Moles/Vol] 28.0 mmol/L 21.0-32.0 [facility] Work Phone: Urea nitrogen/Creatinine [Mass ratio] 18.1 mg/mg 10-20 [facility] Work Phone: Nitrite Test strip Ql (U)on 03-24-2022 Nitrite Ql (U) Negative Negative [facility] Work Phone: No Panel Informationon 03-24 Estimated GFR (MDRD) Amer 143 mL/min >60 [facility] Work Phone: Comment on above: GFR Calc Estimated GFR (MDRD) Non-Af Amer 118 mL/min >60 [facility] Work Phone: Comment on above: Non- GFR Calc Protein Test strip Ql (U)on 03-24-2022 Protein Ql (U) Negative Negative [facility] Work Phone: Serum or plasma calcium sammy urement (mass/volume)on 03-24-2022 Calcium [Mass/Vol] 9.3 mg/dL 8.5-10.1 [facility] Work Phone: Serum or plasma creatinine m easurement (mass/volume)on 03-24-2022 Creatinine [Mass/Vol] 0.72 mg/dL 0.70-1.30 [facility] Work Phone: Comment on above: The validity of the calculated GFR & GFRAA in patients over 70 years has not been determined. Clinical correlation is essential. Serum or plasma urea nitroge n measurement (mass/volume)on 03-24-2022 Urea nitrogen [Mass/Vol] 13 mg/dL 7-18 [facility] Work Phone: Thin prep Papanicolaou smear with manual screeningon 03-24-2022 Thin prep Papanicolaou smear with manual screening 5 5-15 [facility] Work Phone: Urine blood detectionon 03-12 RBC Ql (U) 50 /ul Negative [facility] Work Phone: Urine clarityon 03-24-2022 Clarity (U) Clear Clear [facility] Work Phone: Urine color determinationon 03-24-2022 Color (U) Yellow Yellow [facility] Work Phone: Urine glucose detectionon Glucose Ql (U) Normal mg/dl Normal [facility] Work Phone: Urine leukocyte esterase det ection by dipstickon 03-24-2022 Leukocyte esterase Test strip Ql (U) 25 /ul Negative [facility] Work Phone: Urine pHon 03-24-2022 pH (U) 8.0 [pH] 5.0 - 8.0 [facility] Work Phone: Urine specific gravity measu rementon 03-24-2022 Specific gravity (U) [Rel density] 1.010 1.002-1.03 0 [facility] Work Phone: Urobilinogen Auto test strip Ql (U)on 03-24-2022 Urobilinogen Ql (U) Normal mg/dl Normal [facility] Work Phone: CNPNon 03-23-2022 [facility] Telephone (FlowPayS) -------- GUSTAVO CERDA ([id number]) 1960 M Date Time Provider Department 03/23/22 RENETTA ALEX [...] patient that this is not available at [facility], thus he may have to go to [facility] for this procedure. I will call patient [...] Encounter Status:Closed by RENETTA ALEX on 03/23/22 [facility] CNOVon 03-22-2022 CNOV Office Visit (SWS ) -------- ELVA CERDAIP ([id number]) 1960 M Date Time Provider Department 03/22/22 2:40 PM RENETTA ALEX During your visit today, we recorded the following information about you: Temperature Pulse Blood pressure Weight 97.6 degrees 111/minute 148/78 159.7 kg Height 1.778 m Renetta Alex MD 03/22/2022 7:07 PM Signed FOLLOW UP VISIT NAME: Gustavo Cerda CLINIC NO.: [id number] DATE OF SERVICE: 03/22/2022 : 1960 Gustavo [...] Reason for Visit: Follow Up [171] Cmt: KENNETH drain, [facility] admit, d/c 03/18/22, pancreatitis Primary Visit Diagnosis:Status [...] for Encounter Date Provider Department Center 03/22/2022 [id number] [facility]LEX [facility] Encounter Status:Closed by RENETTA ALEX on 03/22/22 Normal [facility] Absolute lymphocyte counton 03-18-2022 Lymphocytes Auto (Unsp spec) [#/Vol] 1.06 10*3/uL 0.83-4.51 [facility] Work Phone: Basophil percentageon 2021 Basophils/100 WBC (Bld) 0.4 % 0-1 [facility] Work Phone: Chloride [Moles/Vol] 100 mmol/L 98-107 [facility] Work Phone: Eosinophils/100 WBC (Bld) 0.6 % 0-5 [facility] Work Phone: Glucose [Mass/Vol] 122 mg/dL 74-106 [facility] Work Phone: Comment on above: Fasting Glucose resu lt from 100 to 125 mg/dL suggests IMPAIRED HOMEOSTASIS per A.D.A. criteria. Neutrophils (Bld) [#/Vol] 9.5 10*3/uL 2.0-7.7 [facility] Work Phone: Neutrophils/100 WBC (Bld) 77.2 % 47-70 [facility] Work Phone: Potassium [Moles/Vol] 3.5 mmol/L 3.5-5.1 [facility] Work Phone: [phone] Sodium [Moles/Vol] 134 mmol/L 136-145 [facility] Work Phone: WBC (Bld) [#/Vol] 12.3 10*3/uL 4.4-11.0 [facility] Work Phone: Blood erythrocytes count (nu mber/volume)on 03-18-2022 RBC (Bld) [#/Vol] 4.29 10*6/uL 4.6-6.2 [facility] Work Phone: Blood hemoglobin measurement (mass/volume)on 03-18-2022 Hemoglobin (Bld) [Mass/Vol] 12.9 g/dL 13.0-16.5 [facility] Work Phone: Blood lymphocytes/100 leukoc yteson 03-18-2022 Lymphocytes/100 WBC (Bld) 8.6 % 19-41 [facility] Work Phone: [phone] Blood monocytes/100 leukocyt eson 03-18-2022 Monocytes/100 WBC (Bld) 11.4 % 0-10 [facility] Work Phone: Blood platelet mean volumeon 03-18-2022 Platelet mean volume (Bld) [Entitic vol] 8.8 fL 6.2-12.0 [facility] Work Phone: Determination of erythrocyte mean corpuscular volume (MCV)on 03-18-2022 MCV (RBC) [Entitic vol] 87.6 fL 80-94 [facility] Work Phone: Hematocrit Auto (Bld) [Volum e fraction]on 03-18-2022 Hematocrit (Bld) [Volume fraction] 37.6 % 40-54 [facility] Work Phone: Laboratory - Chemistry and C hemistry - challengeon 03-18-2022 CO2 [Moles/Vol] 27.0 mmol/L 21.0-32.0 [facility] Work Phone: Urea nitrogen/Creatinine [Mass ratio] 16.1 mg/mg 10-20 [facility] Work Phone: Laboratory - Hematology and Cell countson 03-18-2022 Erythrocyte distribution width (RBC) [Entitic vol] 42.0 fL 35.1-43.9 [facility] Work Phone: Erythrocyte distribution width (RBC) [Ratio] 13.2 % 11.6-14.6 [facility] Work Phone: Immature granulocytes/100 WBC (Bld) 1.800 % 0.0-0.9 [facility] Work Phone: Comment on above: IG% - Immature Granu locytes (promyelocytes, myelocytes and metamyelocytes) > 1% indicates that a LEFT SHIFT is Present. MCH (RBC) [Entitic mass] 30.1 pg 27.0-32.0 [facility] Work Phone: Nucleated RBC/100 WBC (Bld) [Ratio] 0 % 0-5 [facility] Work Phone: MCHC Auto (RBC) [Mass/Vol]on 03-18-2022 MCHC (RBC) [Mass/Vol] 34.3 g/dL 32-36 [facility] Work Phone: No Panel Informationon 03-18 Estimated Creatinine Clearance Calc 129.19 ml/min [facility] Work Phone: Estimated GFR (MDRD) Amer 169 mL/min >60 [facility] Work Phone: Comment on above: GFR Calc Estimated GFR (MDRD) Non-Af Amer 140 mL/min >60 [facility] Work Phone: Comment on above: Non- GFR Calc Platelets bldon 03-18-2022 Platelets (Bld) [#/Vol] 249 10*3/uL 150-450 [facility] Work Phone: Serum or plasma calcium sammy urement (mass/volume)on 03-18-2022 Calcium [Mass/Vol] 8.3 mg/dL 8.5-10.1 [facility] Work Phone: Serum or plasma creatinine m easurement (mass/volume)on 03-18-2022 Creatinine [Mass/Vol] 0.62 mg/dL 0.70-1.30 [facility] Work Phone: Comment on above: The validity of the calculated GFR & GFRAA in patients over 70 years has not been determined. Clinical correlation is essential. Serum or plasma urea nitroge n measurement (mass/volume)on 03-18-2022 Urea nitrogen [Mass/Vol] 10 mg/dL 7-18 [facility] Work Phone: Thin prep Papanicolaou smear with manual screeningon 03-18-2022 Thin prep Papanicolaou smear with manual screening 7 5-15 [facility] Work Phone: Whole blood hemoglobin A1c/t otal hemoglobin ratio (mass fraction)on 03-17-2022 HbA1c (Bld) [Mass fraction] 5.7 % 3.8-5.6 [facility] Work Phone: Comment on above: Normal < 5.7 % Predi abetic 5.7 - 6.4 % Diabetic >or= 6.5 % Please note range changes. Laboratory - Chemistry and C hemistry - challengeon 03-15-2022 Lipase [Catalytic activity/Vol] 437 U/L 73-393 [facility] Work Phone: Basophil percentageon 2021 Lactate [Moles/Vol] 1.3 mmol/L 0.4-2.0 [facility] Work Phone: Absolute lymphocyte counton 03-12-2022 Lymphocytes Auto (Unsp spec) [#/Vol] 1.15 10*3/uL 0.83-4.51 [facility] Work Phone: Basophil percentageon 2021 Basophils/100 WBC (Bld) 0.0 % 0-1 [facility] Work Phone: Bilirubin [Mass/Vol] 0.80 mg/dL 0.20-1.00 [facility] Work Phone: Comment on above: For patients on eltr ombopag therapy, use of Dimension [place] TBIL is not recommended. Chloride [Moles/Vol] 105 mmol/L 98-107 [facility] Work Phone: Eosinophils/100 WBC (Bld) 0.0 % 0-5 [facility] Work Phone: Glucose [Mass/Vol] 225 mg/dL 74-106 [facility] Work Phone: Comment on above: Glucose result great er than or equal to 200 mg/dLsuggests DIABETES MELLITUS per A.D.A. criteria. Lactate [Moles/Vol] 2.1 mmol/L 0.4-2.0 [facility] Work Phone: Comment on above: Critical Result(s) C alled at: 23:07:19 03/12/2022 by: Dalila tadeo [place] [id number]. Results read back by same. Neutrophils (Bld) [#/Vol] 5.4 10*3/uL 2.0-7.7 [facility] Work Phone: Neutrophils/100 WBC (Bld) 77.8 % 47-70 [facility] Work Phone: Potassium [Moles/Vol] 4.4 mmol/L 3.5-5.1 [facility] Work Phone: Protein [Mass/Vol] 7.2 g/dL 6.4-8.2 [facility]: Sodium [Moles/Vol] 136 mmol/L 136-145 [facility] Work Phone: [phone] WBC (Bld) [#/Vol] 6.9 10*3/uL 4.4-11.0 [facility] Work Phone: Blood erythrocytes count (nu mber/volume)on 03-12-2022 RBC (Bld) [#/Vol] 5.11 10*6/uL 4.6-6.2 [facility] Work Phone: Blood hemoglobin measurement (mass/volume)on 03-12-2022 Hemoglobin (Bld) [Mass/Vol] 15.8 g/dL 13.0-16.5 [facility] Work Phone: Blood lymphocytes/100 leukoc yteson 03-12-2022 Lymphocytes/100 WBC (Bld) 16.7 % 19-41 [facility] Work Phone: Blood monocytes/100 leukocyt eson 03-12-2022 Monocytes/100 WBC (Bld) 5.2 % 0-10 [facility] Work Phone: Blood platelet mean volumeon 03-12-2022 Platelet mean volume (Bld) [Entitic vol] 8.7 fL 6.2-12.0 [facility] Work Phone: Determination of erythrocyte mean corpuscular volume (MCV)on 03-12-2022 MCV (RBC) [Entitic vol] 87.1 fL 80-94 [facility] Work Phone: Direct bilirubinon 2 Bilirubin.direct [Mass/Vol] 0.29 mg/dL 0.00-0.30 [facility] Work Phone: Hematocrit Auto (Bld) [Volum e fraction]on 03-12-2022 Hematocrit (Bld) [Volume fraction] 44.5 % 40-54 [facility] Work Phone: Laboratory - Chemistry and C hemistry - challengeon 03-12-2022 ALP [Catalytic activity/Vol] 87 U/L 45-117 [facility] Work Phone: [phone] ALT [Catalytic activity/Vol] 46 U/L 16-61 [facility] Work Phone: CO2 [Moles/Vol] 24.0 mmol/L 21.0-32.0 [facility] Work Phone: Globulin (S) [Mass/Vol] 4.0 g/dL 2.2-4.2 [facility] Work Phone: Lipase [Catalytic activity/Vol] 33473 U/L 73-393 [facility] Work Phone: Urea nitrogen/Creatinine [Mass ratio] 16.5 mg/mg 10-20 [facility] Work Phone: Laboratory - Hematology and Cell countson 03-12-2022 Erythrocyte distribution width (RBC) [Entitic vol] 39.7 fL 35.1-43.9 [facility] Work Phone: Erythrocyte distribution width (RBC) [Ratio] 12.4 % 11.6-14.6 [facility] Work Phone: Immature granulocytes/100 WBC (Bld) 0.300 % 0.0-0.9 [facility] Work Phone: Comment on above: IG% - Immature Granu locytes (promyelocytes, myelocytes and metamyelocytes) > 1% indicates that a LEFT SHIFT is Present. MCH (RBC) [Entitic mass] 30.9 pg 27.0-32.0 [facility] Work Phone: Nucleated RBC/100 WBC (Bld) [Ratio] 0 % 0-5 [facility] Work Phone: MCHC Auto (RBC) [Mass/Vol]on 03-12-2022 MCHC (RBC) [Mass/Vol] 35.5 g/dL 32-36 [facility] Work Phone: No Panel Informationon 03-12 Estimated Creatinine Clearance Calc 73.48 ml/min [facility] Work Phone: Estimated GFR (MDRD) Amer 88 mL/min >60 [facility] Work Phone: Comment on above: GFR Calc Estimated GFR (MDRD) Non-Af Amer 73 mL/min >60 [facility] Work Phone: Comment on above: Non- GFR Calc Platelets bldon 03-12-2022 Platelets (Bld) [#/Vol] 290 10*3/uL 150-450 [facility] Work Phone: Serum or plasma albumin sammy urement (mass/volume)on 03-12-2022 Albumin [Mass/Vol] 3.2 g/dL 3.2-5.0 [facility] Work Phone: Serum or plasma calcium sammy urement (mass/volume)on 03-12-2022 Calcium [Mass/Vol] 9.1 mg/dL 8.5-10.1 [facility] Work Phone: Serum or plasma creatinine m easurement (mass/volume)on 03-12-2022 Creatinine [Mass/Vol] 1.09 mg/dL 0.70-1.30 [facility] Work Phone: Comment on above: The validity of the calculated GFR & GFRAA in patients over 70 years has not been determined. Clinical correlation is essential. Serum or plasma urea nitroge n measurement (mass/volume)on 03-12-2022 Urea nitrogen [Mass/Vol] 18 mg/dL 7-18 [facility] Work Phone: Thin prep Papanicolaou smear with manual screeningon 03-12-2022 Thin prep Papanicolaou smear with manual screening 26 U/L 15-37 [facility] Work Phone: Thin prep Papanicolaou smear with manual screening 7 5-15 [facility] Work Phone: CNOVon 03-10-2022 CNOV Office Visit (GENSWS ) -------- GUSTAVO CERDA ([id number]) 1960 M Date Time Provider Department 03/10/22 2:40 PM RENETTA ALEX During your visit [...] UP VISIT NAME: Gustavo Cerda CLINIC NO.: [id number] DATE OF SERVICE: 03/10/2022 : 1960 REFERRING [...] Renetta Alex MD Referring Provider: RENETTA ALEX [[id number]] Allergies As of Date: 03/10/2022 (No Known [...] for Encounter Date Provider Department Center 03/10/2022 [id number] ALEX Encounter Status:Closed by RENETTA ALEX on 03/10/22 [facility] 03-04-2022 [facility] Telephone (FAMPWS) -------- GUSTAVO CERDA ([id number]) 1960 M Date Time Provider Department 03/04/22 [facility] your visit today, we recorded the following information about you: Viri Rush 03/04/2022 10:38 AM Signed [facility] called over to get orders transferred to Dr. Leung's office, they are stating they never received any consultation, was wondering if they could be sent again. Fax #: [phone] Please Advise Yong Land RN 03/04/2022 4:34 PM Signed Referral and office visit note from Dr. Alex were faxed at 10:23 am this morning. Fax conformation sheet received ([phone]). Faxed the results of the HIDA scan to Dr. Leung's office ([phone]) at 1621, fax conformation sheet received. Attempted to call Dr. Leung's office, but the are closed as of 1630. Yong Land RN Allergies As of Date: 03/04/2022 (No Known Allergies) Date Reviewed: 03/04/2022 Reviewed by: RT Qamar(R) - Partially Assessed Reason for Visit: Orders [681] Prescriptions as of 03/04/2022 - acetaminophen (TYLENOL ORAL) Take by mouth as needed. Problem List As Of Date: 03/04/2022 (None) Encounter Status:Closed by YONG LAND on 03/04/22 Normal [facility] HEPATOBILIARY WO RXon AL HEPATOBILIARY WO RX * * *Final Report * * * DATE OF EXAM: Mar 04 2022 3:49PM WAYNE 0022 - AL HEPATOBILIARY WO RX / PROCEDURE REASON: Calculus [...] as described. Findings indicative of biliary leak. [employer]: DEMARCO Transcribe Date/Time: Mar 04 2022 3:55P Dictated by : IVA CHOPRA MD This examination was interpreted and the report reviewed and electronically signed by: IVA CHOPRA MD on Mar 04 2022 3:57PM EST [id number] [facility] CNNURSEon 03-03-2022 [facility] Nurse Visit (GENSWS) -------- GUSTAVO CERDA ([id number]) 1960 M Date Time Provider Department 03/03/22 2:00 PM NURSE [facility]TO[facility]ETTE [facility] GENSWS During your visit today, we recorded [...] Encounter Status:Closed by KENZIE ECHOLS on 03/04/22 [facility] Tae 03-03-2022 CNPN Telephone (GENSWS) -------- GUSTAVO CERDA ([id number]) 1960 M Date Time Provider Department 03/03/22 RENETTA ALEX During your visit today, we recorded the following information about you: Sallei Mars 03/03/2022 9:39 AM Signed Pts called wondering if pt can get stitches removed today or tomorrow. States they are bothering him. Dr. Alex did not have any openings. Please let him know if he should wait until appt this coming week with Dr. Alex. Yong Land RN 03/03/2022 10:[address] Alex, Gustavo is scheduled for a HIDA scan on [...] Fully Assessed Reason for Visit: Patient Question [1477] Prescriptions as of 03/03/2022 - acetaminophen (TYLENOL ORAL) Take by mouth as needed. Problem List As Of Date: 03/03/2022 (None) Encounter Status:Closed by YONG LAND on 03/03/22 [facility] CNPN Telephone (GENSWS) -------- ZAIDAGUSTAVO ([id number]) 1960 M Date Time Provider Department 03/03/22 [...] office. Fax conformation sheet received. Called Gustavo ([phone]) and advised that we had sent the [...] Encounter Status:Closed by YONG LAND on 03/04/22 [facility] CNOVon 02-24-2022 CNOV Office Visit (GENSWS ) -------- GUSTAVO CERDA ([id number]) 1960 M Date Time Provider Department 02/24/22 2:00 PM RENETTA ALEX During your visit today, we recorded the following information about you: Temperature Pulse Blood pressure Weight 98.4 degrees 78/minute 151/87 158.8 kg Height 1.778 m Renetta Alex MD 02/26/2022 12:33 PM Signed FOLLOW UP VISIT NAME: Gustavo Cerda CLINIC NO.: [id number] DATE OF SERVICE: 02/24/2022 : 1960 REFERRING [...] Renetta Alex MD Referring Provider: RENETTA ALEX [[id number]] Allergies As of Date: 02/24/2022 (No Known Allergies) Date Reviewed: 02/24/2022 Reviewed by: Elizabeth Manriquez - Fully Assessed Reason for Visit: Post Op [174] Cmt: Laparoscopic cholecystectomy Primary Visit Diagnosis:Status post cholecystectomy [Z90.49] Other Visit Diagnoses:Bile leak [K83.9] Morbid obesity (HCC) [E66.01] Order(s):NM HEPATOBILIARY WO RX [[id number]] Order #: [id number] FUTURE Prescriptions as of 02/26/2022 - acetaminophen (TYLENOL ORAL) Take by mouth as needed. Problem List As Of Date: 02/24/2022 (None) Disposition: Return in about 2 weeks (around 03/10/2022). Follow-up and Disposition History for Encounter Date Provider Department Center 02/24/2022 [id number] ALEX [facility] Encounter Status:Closed by RENETTA ALEX on 02/26/22 [facility] Basophil percentageon 2021 Bilirubin [Mass/Vol] 1.20 mg/dL 0.20-1.00 [facility] Work Phone: Comment on above: For patients on eltr ombopag therapy, use of Dimension [place] TBIL is not recommended. Protein [Mass/Vol] 6.2 g/dL 6.4-8.2 [facility] Work Phone: Direct bilirubinon Bilirubin.direct [Mass/Vol] 0.39 mg/dL 0.00-0.30 [facility] Work Phone: Laboratory - Chemistry and C hemistry - challengeon 02-20-2022 ALP [Catalytic activity/Vol] 55 U/L 45-117 [facility] Work Phone: ALT [Catalytic activity/Vol] 41 U/L 16-61 [facility] Work Phone: Globulin (S) [Mass/Vol] 3.6 g/dL 2.2-4.2 [facility] Work Phone: Serum or plasma albumin sammy urement (mass/volume)on 02-20-2022 Albumin [Mass/Vol] 2.6 g/dL 3.2-5.0 [facility] Work Phone: Thin prep Papanicolaou smear with manual screeningon 02-20-2022 Thin prep Papanicolaou smear with manual screening 19 U/L 15-37 [facility] Work Phone: Absolute lymphocyte counton 02-19-2022 Lymphocytes Auto (Unsp spec) [#/Vol] 0.73 10*3/uL 0.83-4.51 [facility] Work Phone: Basophil percentageon 2021 Basophils/100 WBC (Bld) 0.1 % 0-1 [facility] Work Phone: Chloride [Moles/Vol] 108 mmol/L 98-107 [facility] Work Phone: [phone] Eosinophils/100 WBC (Bld) 0.0 % 0-5 [facility] Work Phone: Glucose [Mass/Vol] 136 mg/dL 74-106 [facility] Work Phone: Comment on above: Fasting Glucose resu lt greater than or equal to 126 mg/dL suggests DIABETES MELLITUS per A.D.A. criteria. Neutrophils (Bld) [#/Vol] 9.7 10*3/uL 2.0-7.7 [facility] Work Phone: Neutrophils/100 WBC (Bld) 83.6 % 47-70 [facility] Work Phone: Potassium [Moles/Vol] 4.2 mmol/L 3.5-5.1 [facility] Work Phone: Sodium [Moles/Vol] 138 mmol/L 136-145 [place] [facility] Work Phone: WBC (Bld) [#/Vol] 11.6 10*3/uL 4.4-11.[facility] Work [facility]: Blood erythrocytes count (nu mber/volume)on 02-19-2022 RBC (Bld) [#/Vol] 4.38 10*6/uL 4.6-6.2 [facility] Work Phone: Blood hemoglobin measurement (mass/volume)on 02-19-2022 Hemoglobin (Bld) [Mass/Vol] 13.6 g/dL 13.0-16.5 [facility] Work Phone: Blood lymphocytes/100 leukoc yteson 02-19-2022 Lymphocytes/100 WBC (Bld) 6.3 % 19-41 [facility] Work Phone: Blood monocytes/100 leukocyt eson 02-19-2022 Monocytes/100 WBC (Bld) 8.9 % 0-10 [facility] Work Phone: Blood platelet mean volumeon 02-19-2022 Platelet mean volume (Bld) [Entitic vol] 8.8 fL 6.2-12.0 [facility] Work Phone: Determination of erythrocyte mean corpuscular volume (MCV)on 02-19-2022 MCV (RBC) [Entitic vol] 92.2 fL 80-94 [facility] Work Phone: Hematocrit Auto (Bld) [Volum e fraction]on 02-19-2022 Hematocrit (Bld) [Volume fraction] 40.4 % 40-54 [facility] Work Phone: Laboratory - Chemistry and C hemistry - challengeon 02-19-2022 CO2 [Moles/Vol] 25.0 mmol/L 21.0-32.0 [facility] Work Phone: Urea nitrogen/Creatinine [Mass ratio] 17.8 mg/mg 10-20 [facility] Work Phone: Laboratory - Hematology and Cell countson 02-19-2022 Erythrocyte distribution width (RBC) [Entitic vol] 44.4 fL 35.1-43.9 [facility] Work Phone: Erythrocyte distribution width (RBC) [Ratio] 13.1 % 11.6-14.6 [facility] Work Phone: Immature granulocytes/100 WBC (Bld) 1.100 % 0.0-0.9 [facility] Work Phone: Comment on above: IG% - Immature Granu locytes (promyelocytes, myelocytes and metamyelocytes) > 1% indicates that a LEFT SHIFT is Present. MCH (RBC) [Entitic mass] 31.1 pg 27.0-32.0 [facility] Work Phone: Nucleated RBC/100 WBC (Bld) [Ratio] 0 % 0-5 [facility] Work Phone: MCHC Auto (RBC) [Mass/Vol]on 02-19-2022 MCHC (RBC) [Mass/Vol] 33.7 g/dL 32-36 [facility] Work Phone: No Panel Informationon 02-19 Estimated Creatinine Clearance Calc 102.69 ml/min [facility] Work Phone: Estimated GFR (MDRD) Amer 129 mL/min >60 [facility] Work Phone: Comment on above: GFR Calc Estimated GFR (MDRD) Non-Af Amer 107 mL/min >60 [facility] Work Phone: Comment on above: Non- GFR Calc Platelets bldon 02-19-2022 Platelets (Bld) [#/Vol] 166 10*3/uL 150-450 [facility] Work Phone: Serum or plasma calcium sammy urement (mass/volume)on 02-19-2022 Calcium [Mass/Vol] 8.1 mg/dL 8.5-10.1 [facility] Work Phone: Serum or plasma creatinine m easurement (mass/volume)on 02-19-2022 Creatinine [Mass/Vol] 0.78 mg/dL 0.70-1.30 [facility] Work Phone: Comment on above: The validity of the calculated GFR & GFRAA in patients over 70 years has not been determined. Clinical correlation is essential. Serum or plasma urea nitroge n measurement (mass/volume)on 02-19-2022 Urea nitrogen [Mass/Vol] 14 mg/dL 7-18 [facility] Work Phone: Thin prep Papanicolaou smear with manual screeningon 02-19-2022 Thin prep Papanicolaou smear with manual screening 5 5-15 [facility] Work Phone: Absolute lymphocyte counton 02-18-2022 Lymphocytes Auto (Unsp spec) [#/Vol] 1.01 10*3/uL 0.83-4.51 [facility] Work Phone: Basophil percentageon 2021 Basophils/100 WBC (Bld) 0.1 % 0-1 [facility] Work Phone: Chloride [Moles/Vol] 105 mmol/L 98-107 [facility] Work Phone: Eosinophils/100 WBC (Bld) 0.2 % 0-5 [facility] Work Phone: Glucose [Mass/Vol] 127 mg/dL 74-106 [facility] Work Phone: Comment on above: Fasting Glucose resu lt greater than or equal to 126 mg/dL suggests DIABETES MELLITUS per A.D.A. criteria. Neutrophils (Bld) [#/Vol] 9.8 10*3/uL 2.0-7.7 [facility] Work Phone: Neutrophils/100 WBC (Bld) 81.0 % 47-70 [facility] Work Phone: Potassium [Moles/Vol] 4.1 mmol/L 3.5-5.1 [facility] [facility] Work Phone: Sodium [Moles/Vol] 135 mmol/L 136-145 [place] [facility] Work Phone: WBC (Bld) [#/Vol] 12.1 10*3/uL 4.4-11.0 [place] [facility] Work Phone: Blood erythrocytes count (nu mber/volume)on 02-18-2022 RBC (Bld) [#/Vol] 4.65 10*6/uL 4.6-6.2 [facility] Work Phone: Blood hemoglobin measurement (mass/volume)on 02-18-2022 Hemoglobin (Bld) [Mass/Vol] 14.5 g/dL 13.0-16.5 [facility] Work Phone: Blood lymphocytes/100 leukoc yteson 02-18-2022 Lymphocytes/100 WBC (Bld) 8.3 % 19-41 [facility] Work Phone: Blood monocytes/100 leukocyt eson 02-18-2022 Monocytes/100 WBC (Bld) 9.9 % 0-10 [facility] Work Phone: Blood platelet mean volumeon 02-18-2022 Platelet mean volume (Bld) [Entitic vol] 8.6 fL 6.2-12.0 [facility] Work Phone: Determination of erythrocyte mean corpuscular volume (MCV)on 02-18-2022 MCV (RBC) [Entitic vol] 91.6 fL 80-94 [facility] Work Phone: Hematocrit Auto (Bld) [Volum e fraction]on 02-18-2022 Hematocrit (Bld) [Volume fraction] 42.6 % 40-54 [facility] Work Phone: Laboratory - Chemistry and C hemistry - challengeon 02-18-2022 CO2 [Moles/Vol] 25.0 mmol/L 21.0-32.0 [facility] Work Phone: Urea nitrogen/Creatinine [Mass ratio] 20.0 mg/mg 10-20 [facility] Work Phone: Laboratory - Hematology and Cell countson 02-18-2022 Erythrocyte distribution width (RBC) [Entitic vol] 44.0 fL 35.1-43.9 [facility] Work Phone: Erythrocyte distribution width (RBC) [Ratio] 13.2 % 11.6-14.6 [facility] Work Phone: Immature granulocytes/100 WBC (Bld) 0.500 % 0.0-0.9 [facility] Work Phone: Comment on above: IG% - Immature Granu locytes (promyelocytes, myelocytes and metamyelocytes) > 1% indicates that a LEFT SHIFT is Present. MCH (RBC) [Entitic mass] 31.2 pg 27.0-32.0 [facility] Work Phone: Nucleated RBC/100 WBC (Bld) [Ratio] 0 % 0-5 [facility] Work Phone: MCHC Auto (RBC) [Mass/Vol]on 02-18-2022 MCHC (RBC) [Mass/Vol] 34.0 g/dL 32-36 [facility] Work Phone: No Panel Informationon 02-18 Estimated Creatinine Clearance Calc 94.23 ml/min [facility] Work Phone: Estimated GFR (MDRD) Amer 118 mL/min >60 [facility] Work Phone: Comment on above: GFR Calc Estimated GFR (MDRD) Non-Af Amer 97 mL/min >60 [facility] Work Phone: Comment on above: Non- GFR Calc Platelets bldon 02-18-2022 Platelets (Bld) [#/Vol] 182 10*3/uL 150-450 [facility] Work Phone: Serum or plasma calcium sammy urement (mass/volume)on 02-18-2022 Calcium [Mass/Vol] 7.9 mg/dL 8.5-10.1 [facility] Work Phone: Serum or plasma creatinine m easurement (mass/volume)on 02-18-2022 Creatinine [Mass/Vol] 0.85 mg/dL 0.70-1.30 [facility] Work Phone: Comment on above: The validity of the calculated GFR & GFRAA in patients over 70 years has not been determined. Clinical correlation is essential. Serum or plasma urea nitroge n measurement (mass/volume)on 02-18-2022 Urea nitrogen [Mass/Vol] 17 mg/dL 7-18 [facility] Work Phone: Thin prep Papanicolaou smear with manual screeningon 02-18-2022 Thin prep Papanicolaou smear with manual screening 5 5-15 [facility] Work Phone: Absolute lymphocyte counton 02-17-2022 Lymphocytes Auto (Unsp spec) [#/Vol] 1.25 10*3/uL 0.83-4.51 [facility] Work Phone: Basophil percentageon 2021 Basophil percentage 0-5 SEEN /hpf 0-5 [facility] Work Phone: Lactate [Moles/Vol] 0.9 mmol/L 0.4-2.0 [facility] Work Phone: Basophils/100 WBC (Bld) 0.2 % 0-1 [facility] Work Phone: Bilirubin [Mass/Vol] 1.00 mg/dL 0.20-1.00 [facility] Work Phone: Comment on above: For patients on eltr ombopag therapy, use of Dimension [place] TBIL is not recommended. Chloride [Moles/Vol] 102 mmol/L 98-107 [facility] Work Phone: Eosinophils/100 WBC (Bld) 0.5 % 0-5 [facility] Work Phone: Glucose [Mass/Vol] 137 mg/dL 74-106 [facility] Work Phone: Comment on above: Fasting Glucose resu lt greater than or equal to 126 mg/dL suggests DIABETES MELLITUS per A.D.A. criteria. Neutrophils (Bld) [#/Vol] 6.2 10*3/uL 2.0-7.7 [facility] Work Phone: Neutrophils/100 WBC (Bld) 75.4 % 47-70 [facility] Work Phone: Potassium [Moles/Vol] 4.4 mmol/L 3.5-5.1 [facility] Work Phone: Protein [Mass/Vol] 7.6 g/dL 6.4-8.2 [facility] Work Phone: Sodium [Moles/Vol] 136 mmol/L 136-145 [facility] Work Phone: WBC (Bld) [#/Vol] 8.2 10*3/uL 4.4-11.0 [facility] Work Phone: Bilirubin Test strip Ql (U)o n 02-17-2022 Bilirubin Ql (U) Negative Negative [facility] Work Phone: Blood erythrocytes count (nu mber/volume)on 02-17-2022 RBC (Bld) [#/Vol] 5.22 10*6/uL 4.6-6.2 [facility] Work Phone: Blood hemoglobin measurement (mass/volume)on 02-17-2022 Hemoglobin (Bld) [Mass/Vol] 16.5 g/dL 13.0-16.5 [facility] Work Phone: Blood lymphocytes/100 leukoc yteson 02-17-2022 Lymphocytes/100 WBC (Bld) 15.3 % 19-41 [facility] Work Phone: Blood monocytes/100 leukocyt eson 02-17-2022 Monocytes/100 WBC (Bld) 8.2 % 0-10 [facility] Work Phone: Blood platelet mean volumeon 02-17-2022 Platelet mean volume (Bld) [Entitic vol] 9.0 fL 6.2-12.0 [facility] Work Phone: Determination of erythrocyte mean corpuscular volume (MCV)on 02-17-2022 MCV (RBC) [Entitic vol] 91.6 fL 80-94 [facility] Work Phone: Direct bilirubinon Bilirubin.direct [Mass/Vol] 0.29 mg/dL 0.00-0.30 [facility] Work Phone: Hematocrit Auto (Bld) [Volum e fraction]on 02-17-2022 Hematocrit (Bld) [Volume fraction] 47.8 % 40-54 [facility] Work Phone: Ketones Test strip Ql (U)on 02-17-2022 Ketones Ql (U) Negative Negative [facility] Work Phone: Laboratory - Chemistry and C hemistry - challengeon 02-17-2022 ALP [Catalytic activity/Vol] 68 U/L 45-117 [facility] Work Phone: ALT [Catalytic activity/Vol] 35 U/L 16-61 [facility] Work Phone: CO2 [Moles/Vol] 26.0 mmol/L 21.0-32.0 [facility] Work Phone: Globulin (S) [Mass/Vol] 3.8 g/dL 2.2-4.2 [facility] Work Phone: Lipase [Catalytic activity/Vol] 56 U/L 73-393 [facility] Work Phone: Urea nitrogen/Creatinine [Mass ratio] 22.6 mg/mg 10-20 [facility] Work Phone: Laboratory - Hematology and Cell countson 02-17-2022 Erythrocyte distribution width (RBC) [Entitic vol] 42.8 fL 35.1-43.9 [facility] Work Phone: Erythrocyte distribution width (RBC) [Ratio] 12.8 % 11.6-14.6 [facility] Work Phone: Immature granulocytes/100 WBC (Bld) 0.400 % 0.0-0.9 [facility] Work Phone: Comment on above: IG% - Immature Granu locytes (promyelocytes, myelocytes and metamyelocytes) > 1% indicates that a LEFT SHIFT is Present. MCH (RBC) [Entitic mass] 31.6 pg 27.0-32.0 [facility] Work Phone: Nucleated RBC/100 WBC (Bld) [Ratio] 0 % 0-5 [facility] Work Phone: MCHC Auto (RBC) [Mass/Vol]on 02-17-2022 MCHC (RBC) [Mass/Vol] 34.5 g/dL 32-36 [facility] Work Phone: Mucus LM Ql (Urine sed)on Mucus Ql (Urine sed) 0 SEEN /hpf [facility] Work Phone: Nitrite Test strip Ql (U)on 02-17-2022 Nitrite Ql (U) Negative Negative [facility] Work Phone: No Panel Informationon 02-17 Estimated Creatinine Clearance Calc 86.13 ml/min [facility] Work Phone: Estimated GFR (MDRD) Amer 106 mL/min >60 [facility] Work Phone: Comment on above: GFR Calc Estimated GFR (MDRD) Non-Af Amer 88 mL/min >60 [facility] Work Phone: Comment on above: Non- GFR Calc Platelets bldon 02-17-2022 Platelets (Bld) [#/Vol] 244 10*3/uL 150-450 [facility] Work Phone: Protein Test strip Ql (U)on 02-17-2022 Protein Ql (U) Negative Negative [facility] Work Phone: Serum or plasma albumin sammy urement (mass/volume)on 02-17-2022 Albumin [Mass/Vol] 3.8 g/dL 3.2-5.0 [facility] Work Phone: Serum or plasma calcium sammy urement (mass/volume)on 02-17-2022 Calcium [Mass/Vol] 9.4 mg/dL 8.5-10.1 [facility] Work Phone: Serum or plasma creatinine m easurement (mass/volume)on 02-17-2022 Creatinine [Mass/Vol] 0.93 mg/dL 0.70-1.30 [facility] Work Phone: Comment on above: The validity of the calculated GFR & GFRAA in patients over 70 years has not been determined. Clinical correlation is essential. Serum or plasma urea nitroge n measurement (mass/volume)on 02-17-2022 Urea nitrogen [Mass/Vol] 21 mg/dL 7-18 [facility] Work Phone: Squamous epithelial cells de tection in urine sediment by light microscopyon 02-17-2022 Epithelial cells.squamous LM Ql (Urine sed) 0 SEEN /hpf 0-5 [facility] Work Phone: Thin prep Papanicolaou smear with manual screeningon 02-17-2022 Thin prep Papanicolaou smear with manual screening 17 U/L 15-37 [facility] Work Phone: Thin prep Papanicolaou smear with manual screening 8 5-15 [facility] Work Phone: Urine blood detectionon RBC Ql (U) 250 /ul Negative [facility] Work Phone: RBC Ql (U) 25-50 SEEN /hpf 0-5 [facility] Work Phone: Urine clarityon 02-17-2022 Clarity (U) Clear Clear [facility] Work Phone: Urine color determinationon 02-17-2022 Color (U) Yellow Yellow [facility] Work Phone: Urine glucose detectionon Glucose Ql (U) Normal mg/dl Normal [facility] Work Phone: Urine leukocyte esterase det ection by dipstickon 02-17-2022 Leukocyte esterase Test strip Ql (U) 25 /ul Negative [facility] Work Phone: Urine pHon 02-17-2022 pH (U) 6.0 [pH] 5.0 - 8.0 [facility] Work Phone: Urine sediment bacteria coun t by microscopy (number/high power field)on 02-17-2022 Bacteria LM.HPF (Urine sed) [#/Area] 0 /[HPF] None Seen [facility] Work Phone: Urine specific gravity measu rementon 02-17-2022 Specific gravity (U) [Rel density] 1.020 1.002-1.03 0 [facility] Work Phone: Urobilinogen Auto test strip Ql (U)on 02-17-2022 Urobilinogen Ql (U) Normal mg/dl Normal [facility] Work Phone: Whole blood hemoglobin A1c/t otal hemoglobin ratio (mass fraction)on 02-17-2022 HbA1c (Bld) [Mass fraction] 5.7 % 3.8-5.6 [facility] Work Phone: Comment on above: Normal < 5.7 % Predi abetic 5.7 - 6.4 % Diabetic >or= 6.5 % Please note range changes. Basophil percentageon 2021 Chloride [Moles/Vol] 107 mmol/L 98-107 [facility] Work Phone: Potassium [Moles/Vol] 4.3 mmol/L 3.5-5.1 [facility] Work Phone: Sodium [Moles/Vol] 140 mmol/L 136-145 [facility] Work Phone: Laboratory - Chemistry and C hemistry - challengeon 02-16-2022 CO2 [Moles/Vol] 29.0 mmol/L 21.0-32.0 [facility] Work Phone: Thin prep Papanicolaou smear with manual screeningon 02-16-2022 Thin prep Papanicolaou smear with manual screening 4 5-15 [facility] Work Phone: OPERATIVE PROCEDURESon 07-06 OPERATIVE PROCEDURES [facility] OPERATIVE REPORT NAME ACCOUNT SEX AGE ADMIT DISCHARGE PT MED. RECORD# NUMBER DATE DATE TYPE ZAIDA [id number] Arya 58 06/29/19 06/29/19 2 GUSTAVO Nolen [address] ROOM: [facility] DATE OF : 1960 DICTATING PHYSICIAN: Luis Kline DATE OF SURGERY: June 29, 2019 SURGEON: Luis Kline MD MATERIAL YARD CLERK: ANESTHESIOLOGIST: Blanca Hernandez MD ANESTHETIC: PREOPERATIVE DIAGNOSIS: [...] could not palpate any polyps. The Olympus [id number] flexible endoscope was introduced through the anal [...] Luis Kline MD 06/29/19 11:26 JOB #: [id number] Transcribed By: jesus 06/30/19 07:51 Electronically signed by: E-Sign Dr. Luis Kline MD 07/06/19 05:12 Page 2 of 2 GUSTAVO CERDA Operative Report Normal [facility] Vital Signs Date Time Vital Sign Value Performing Clinician Facility 03-13-2025 08:30-0400 Body height 175.[address] Tri Choudhury MD Work Phone: [facility] 03-13-2025 08:30-0400 Body weight 148.[address] Tri Choudhury MD Work Phone: [facility] 02-12-2025 08:45-0400 Body height 175.[address] Tri Choudhury MD Work Phone: [facility] 02-12-2025 08:45-0400 Body weight 153.[address] Tri Choudhury MD Work Phone: [facility] 01-07-2025 10:12-0400 Body weight 154.[address] Tri Choudhury MD Work Phone: [facility] 12-04-2024 10:15-0400 Body height 175.[address] Tri Choudhury MD Work Phone: [facility] 12-04-2024 10:15-0400 Body weight 152.[address] Tri Choudhury MD Work Phone: [facility] 11-08-2024 09:30-0500 Body weight 156.[address] Tri Choudhury MD Work Phone: [facility] 10-10-2024 06:16-0500 Body mass index (BMI) [Ratio] 51.5 kg/m2 Dr. Tri Choudhury MD Work Phone: [facility] 10-10-2024 06:16-0500 Body temperature 97.6 [degF] Dr. Tri Choudhury MD Work Phone: [facility] 10-10-2024 06:16-0500 Body weight 158.[address] Tri Choudhury MD Work Phone: [facility] 10-10-2024 06:16-0500 Diastolic blood pressure 75 mm[Hg] Dr. Tri Choudhury MD Work Phone: [facility] 10-10-2024 06:16-0500 Heart rate 68 /min Dr. Tri Choudhury MD Work Phone: [facility] 10-10-2024 06:16-0500 Respiratory rate 18 /min Dr. Tri Choudhury MD Work Phone: [facility] 10-10-2024 06:16-0500 SaO2% (BldA) [Mass fraction] 96 % Dr. Tri Choudhury MD Work Phone: [facility] 10-10-2024 06:16-0500 Systolic blood pressure 130 mm[Hg] Dr. Tri Choudhury MD Work Phone: [facility] 10-04-2024 09:32-0500 Body weight 159.[address] Tri Choudhury MD Work Phone: [facility] 10-06-2023 07:51-0500 Body height 177.[address] Tri Choudhury Work Phone: [facility] 10-06-2023 07:51-0500 Body mass index (BMI) [Ratio] 50.3 kg/m2 Dr. Tri Choudhury Work Phone: [facility] 10-06-2023 07:51-0500 Body temperature 98.9 [degF] Dr. Tri Choudhury Work Phone: [facility] 10-06-2023 07:51-0500 Body weight 159.[address] Tri Choudhury Work Phone: [facility] 10-06-2023 07:51-0500 Diastolic blood pressure 83 mm[Hg] Dr. Tri Choudhury Work Phone: [facility] 10-06-2023 07:51-0500 Heart rate 76 /min Dr. Tri Choudhury Work Phone: [facility] 10-06-2023 07:51-0500 Respiratory rate 124 /min Dr. Tri Choudhury Work Phone: [facility] 10-06-2023 07:51-0500 SaO2% (BldA) [Mass fraction] 95 % Dr. Tri Choudhury Work Phone: [facility] 10-06-2023 07:51-0500 Systolic blood pressure 160 mm[Hg] Dr. Tri Choudhury Work Phone: [facility] 03-31-2023 07:24-0400 Blood Pressure Cuff Size PAULA QUEZADA MD [facility] 03-31-2023 07:24-0400 Blood Pressure Location PAULA QUEZADA MD [facility] 03-31-2023 07:24-0400 Blood Pressure Method PAULA QUEZADA MD [facility] 03-31-2023 07:24-0400 Body height 177 cm PAULA QUEZADA MD [facility] 03-31-2023 07:24-0400 Body temperature 97.88 [degF] PAULA QUEZADA MD [facility] 03-31-2023 07:24-0400 Body weight 156.6 kg PAULA QUEZADA MD [facility] 03-31-2023 07:24-0400 Body weight 49.99 kg/m2 PAULA QUEZADA MD [facility] 03-31-2023 07:24-0400 Diastolic Blood Pressure Non-Invasive 81 1 PAULA QUEZADA MD [facility] 03-31-2023 07:24-0400 Heart rate 64 /min PAULA QUEZADA MD [facility] 03-31-2023 07:24-0400 Systolic Blood Pressure Non-Invasive 144 1 PAULA QUEZADA MD [facility] 03-18-2023 09:53-0400 Body height 175.26 cm Tri Choudhury Work Phone: [facility] [address] Work Phone: 03-18-2023 09:53-0400 Body mass index (BMI) [Ratio] 50.5 kg/m2 Tri Choudhury Work Phone: [facility] [address] Work Phone: 03-18-2023 09:53-0400 Body surface area Derived from formula 2.59 m2 Tri Choudhury Work Phone: [facility] [address] Work Phone: 03-18-2023 09:53-0400 Body weight 155.13 kg Tri Choudhury Work Phone: GB-Wuwkolj-Ldxblq [facility] [address] Work Phone: 03-18-2023 09:53-0400 Diastolic blood pressure 74 mm[Hg] Tri Martha Macey Work Phone: DY-Nndniub-Zuxryu [facility] [address] Work Phone: 03-18-2023 09:53-0400 Heart rate 75 /min Tri Martha Macey Work Phone: IW-Tidknxs-Wugnht [facility] [address] Work Phone: 03-18-2023 09:53-0400 Systolic blood pressure 129 mm[Hg] Tri Martha Macey Work Phone: FL-Ygnkqlj-Zcqcby [facility] [address] Work Phone: 03-08-2023 10:24-0400 0 1 Tribenji Choudhury Work Phone: UP-Ubgnohi-Tqolwk [facility] [address] Work Phone: Comment on above: [employer] 03-08-2023 10:23-0400 Body mass index (BMI) [Ratio] 50.98 kg/m2 Tri Choudhury Work Phone: DN-Biymfei-Fjuxrj [facility] [address] Work Phone: 03-08-2023 10:23-0400 Body surface area Derived from formula 2.61 m2 Tri Martha Ramonahmet Work Phone: EC-Jedzchh-Mkyntb [facility] [address] Work Phone: 03-08-2023 10:23-0400 Body temperature 98.1 [degF] Tri Martha Macey Work Phone: PK-Boagbyp-Gyvycc [facility] [address] Work Phone: 03-08-2023 10:23-0400 Body weight 156.61 kg Tri E Miedel Work Phone: [facility] [address] Work Phone: 03-08-2023 10:23-0400 Diastolic blood pressure 81 mm[Hg] Tri E Miedel Work Phone: [facility] [address] Work Phone: 03-08-2023 10:23-0400 Heart rate 80 /min Tri E Miedel Work Phone: [facility] [address] Work Phone: 03-08-2023 10:23-0400 Systolic blood pressure 147 mm[Hg] Tri E Miedel Work Phone: [facility] [address] Work Phone: 02-27-2023 11:49-0400 Body temperature 97.52 [degF] Tri Miedel Other Phone: [facility] 02-27-2023 11:49-0400 Diastolic blood pressure 76 mm[Hg] Tri Miedel Other Phone: [facility] 02-27-2023 11:49-0400 Heart rate 60 /min Tri Miedel Other Phone: [facility] 02-27-2023 11:49-0400 Respiratory rate 18 /min Tri Miedel Other Phone: [facility] 02-27-2023 11:49-0400 SaO2% (BldA) [Mass fraction] 93 % Tri Miedel Other Phone: [facility] 02-27-2023 11:49-0400 Systolic blood pressure 122 mm[Hg] Tri Miedel Other Phone: [facility] 02-02-2023 11:20-0400 Body height 175.26 cm Referring Provider Unknown KG-Ytnavtx-Clrleu [facility] [address] Work Phone: 02-02-2023 11:20-0400 Body mass index (BMI) [Ratio] 50.36 kg/m2 Referring Provider Unknown IN-Tgklgre-Custid [facility] [address] Work Phone: 02-02-2023 11:20-0400 Body surface area Derived from formula 2.59 m2 Referring Provider Unknown XG-Scjifvv-Eosflg [facility] [address] Work Phone: 02-02-2023 11:20-0400 Body weight 154.68 kg Referring Provider Unknown QA-Bqitfly-Psckkd [facility] [address] Work Phone: 02-02-2023 11:20-0400 Diastolic blood pressure 65 mm[Hg] Referring Provider Unknown OM-Rvhxzxm-Juodjk [facility] [address] Work Phone: 02-02-2023 11:20-0400 Heart rate 62 /min Referring Provider Unknown KA-Mjgatmr-Cpntyd [facility] [address] Work Phone: 02-02-2023 11:20-0400 Systolic blood pressure 125 mm[Hg] Referring Provider Unknown YD-Tbuftlc-Ikyyfv [facility] [address] Work Phone: 01-15-2023 11:13-0400 Heart rate 50 /min DR LILLY DELGADO MD [facility] 01-15-2023 08:20-0400 Body temperature 97.52 [degF] DR LILLY DELGADO MD [facility] 01-15-2023 08:20-0400 Diastolic Blood Pressure Non-Invasive [address] LILLY DELGADO MD [facility] 01-15-2023 08:20-0400 Heart rate 49 /min DR LILLY DELGADO MD [facility] 01-15-2023 08:20-0400 Reason For Taking VItal Signs DR LILLY DELGADO MD [address] [place] [address] 01-15-2023 08:20-0400 Respiratory rate 18 /min DR LILLY DELGADO MD [address] [place] [address] 01-15-2023 08:20-0400 Systolic Blood Pressure Non-Invasive [address] LILLY DELGADO MD [address] [place] [address] 01-15-2023 04:11-0400 Body temperature 97.52 [degF] DR LILLY DELGADO MD [address] [place] [address] 01-15-2023 04:11-0400 Diastolic Blood Pressure Non-Invasive [address] LILLY DELGADO MD [address] [place] [address] 01-15-2023 04:11-0400 Heart rate 50 /min DR LILLY DELGADO MD [address] [place] [address] 01-15-2023 04:11-0400 Respiratory rate 16 /min DR LILLY DELGADO MD [address] [place] [address] 01-15-2023 04:11-0400 Systolic Blood Pressure Non-Invasive [address] LILLY DELGADO MD [address] [place] [address] 01-14-2023 23:59-0400 Body temperature 97.7 [degF] DR LILLY DELGADO MD [address] [place] [address] 01-14-2023 23:59-0400 Diastolic Blood Pressure Non-Invasive [address] LILLY DELGADO MD [address] [place] [address] 01-14-2023 23:59-0400 Respiratory rate 16 /min DR LILLY DELGADO MD [address] [place] [address] 01-14-2023 23:59-0400 Systolic Blood Pressure Non-Invasive [address] LILLY DELGADO MD [address] [place] [address] 01-14-2023 18:17-0400 Heart rate 72 /min DR LILLY DELGADO MD [address] [place] [address] 01-14-2023 18:17-0400 Reason For Taking VItal Signs DR LILLY DELGADO MD [address] [place] [address] 01-14-2023 17:43-0400 Body temperature 97.7 [degF] DR LILLY DELGADO MD [address] [place] [address] 01-14-2023 17:43-0400 Heart rate 70 /min DR LILLY DELGADO MD [address] [place] [address] 01-14-2023 17:43-0400 Mean blood pressure 64 mm[Hg] DR LILLY DELGADO MD [address] [place] [address] 01-14-2023 17:29-0400 Heart rate 72 /min DR LILLY DELGADO MD [address] [place] [address] 01-14-2023 17:29-0400 Mean blood pressure 68 mm[Hg] DR LILLY DELGADO MD [address] [place] [address] 01-14-2023 17:13-0400 Body temperature 97.7 [degF] DR LILLY DELGADO MD [address] [place] [address] 01-14-2023 17:13-0400 Mean blood pressure 64 mm[Hg] DR LILLY DELGADO MD [address] [place] [address] 01-14-2023 17:05-0400 Respiratory Rate - Anes 0 br/min DR LILLY DELGADO MD [address] [place] [address] 01-14-2023 17:00-0400 Respiratory Rate - Anes 17 br/min DR LILLY DELGADO MD [address] [place] [address] 01-14-2023 16:55-0400 Respiratory Rate - Anes 8 br/min DR LILLY DELGADO MD [address] [place] [address] 01-14-2023 16:50-0400 Body temperature 96.91 [degF] DR LILLY DELGADO MD [address] [place] [address] 01-14-2023 16:45-0400 Body temperature 96.91 [degF] DR LILLY DELGADO MD [address] [place] [address] 01-14-2023 16:40-0400 Body temperature 96.93 [degF] DR LILLY DELGADO MD [address] [place] [address] 01-14-2023 07:24-0400 Body weight 49.47 kg/m2 DR LILLY DELGADO MD [address] [place] [address] 01-13-2023 09:53-0400 Heart rate 64 /min DR LILLY DELGADO MD [address] [place] [address] 01-13-2023 09:34-0400 Body temperature 97.34 [degF] DR LILLY DELGADO MD [address] [place] [address] 01-13-2023 09:05-0400 Reason For Taking VItal Signs DR LILLY DELGADO MD [address] 01-13-2023 04:32-0400 Heart rate 55 /min DR LILLY DELGADO MD [address] [place] [address] 01-12-2023 14:43-0400 Body temperature 97.34 [degF] DR LILLY DELGADO MD [address] [place] [address] 01-10-2023 21:34-0400 Heart rate 79 /min DR LILLY DELGADO MD [address] 01-10-2023 04:07-0400 Body height 177.[address] LILLY DELGADO MD [address] [place] [address] 01-10-2023 04:07-0400 Body weight 156.[address] LILLY DELGADO MD [address] [place] [address] 01-10-2023 04:07-0400 Body weight 49.47 kg/m2 DR LILLY DELGADO MD [address] [place] [address] 01-10-2023 02:19-0400 Diastolic Blood Pressure Non-Invasive 68 1 LATOYA HERRERA MD [facility] 01-10-2023 02:19-0400 Heart rate 70 /min LATOYA HERRERA MD [facility] 01-10-2023 02:19-0400 Respiratory rate 18 /min LATOYA HERRERA MD [facility] 01-10-2023 02:19-0400 Systolic Blood Pressure Non-Invasive 128 1 LATOYA HERRERA MD [facility] 01-09-2023 23:53-0400 Diastolic Blood Pressure Non-Invasive 65 1 LATOYA HERRERA MD [facility] 01-09-2023 23:53-0400 Heart rate 63 /min LATOYA HERRERA MD [facility] 01-09-2023 23:53-0400 Respiratory rate 20 /min LATOYA HERRERA MD [facility] 01-09-2023 23:53-0400 Systolic Blood Pressure Non-Invasive 135 1 ALTOYA HERRERA MD [facility] 01-09-2023 22:17-0400 Body temperature 98.6 [degF] LATOYA HERRERA MD [facility] 01-09-2023 22:17-0400 Diastolic Blood Pressure Non-Invasive 66 1 LATOYA HERRERA MD [facility] 01-09-2023 22:17-0400 Heart rate 68 /min LATOYA HERRERA MD [facility] 01-09-2023 22:17-0400 Respiratory rate 14 /min LATOYA HERRERA MD [facility] 01-09-2023 22:17-0400 Systolic Blood Pressure Non-Invasive 143 1 LATOYA HERRERA MD [facility] 08-24-2022 10:08-0500 Body temperature 97.7 [degF] CORNELIO WEAVER MD [facility] 08-24-2022 10:08-0500 Diastolic Blood Pressure Non-Invasive 62 1 CORNELIO WEAVER MD [facility] 08-24-2022 10:08-0500 Heart rate 73 /min CORNELIO WEAVER MD [facility] 08-24-2022 10:08-0500 Respiratory rate 16 /min CORNELIO WEAVER MD [facility] 08-24-2022 10:08-0500 Systolic Blood Pressure Non-Invasive 111 1 CORNELIO WEAVER MD [facility] 08-24-2022 09:56-0500 Body temperature 98.24 [degF] CORNELIO WEAVER MD [facility] 08-24-2022 09:56-0500 Diastolic Blood Pressure Non-Invasive 53 1 CORNELIO WEAVER MD [facility] 08-24-2022 09:56-0500 Heart rate 72 /min CORNELIO WEAVER MD [facility] 08-24-2022 09:56-0500 Mean blood pressure 61 mm[Hg] CORNELIO WEAVER MD [facility] 08-24-2022 09:56-0500 Respiratory rate 16 /min CORNELIO WEAVER MD [facility] 08-24-2022 09:56-0500 Systolic Blood Pressure Non-Invasive 101 1 CORNELIO WEAVER MD [facility] 08-24-2022 09:42-0500 Diastolic Blood Pressure Non-Invasive 57 1 CORNELIO WEAVER MD [facility] 08-24-2022 09:42-0500 Heart rate 73 /min CORNELIO WEAVER MD [facility] 08-24-2022 09:42-0500 Mean blood pressure 69 mm[Hg] CORNELIO WEAVER MD [facility] 08-24-2022 09:42-0500 Respiratory rate 16 /min CORNELIO WEAVER MD [facility] 08-24-2022 09:42-0500 Systolic Blood Pressure Non-Invasive 110 1 CORNELIO WEAVER MD [facility] 08-24-2022 09:27-0500 Body temperature 98.24 [degF] CORNELIO WEAVER MD [facility] 08-24-2022 09:27-0500 Heart rate 73 /min CORNELIO WEAVER MD [facility] 08-24-2022 09:27-0500 Mean blood pressure 72 mm[Hg] CORNELIO WEAVER MD [facility] 08-24-2022 09:25-0500 Respiratory Rate - Anes 3 br/min CORNELIO WEAVER MD [facility] 08-24-2022 09:20-0500 Respiratory Rate - Anes 12 br/min CORNELIO WEAVER MD [facility] 08-24-2022 09:15-0500 Respiratory Rate - Anes 10 br/min CORNELIO WEAVER MD [facility] 08-24-2022 07:34-0500 Body height 177.8 cm CORNELIO WEAVER MD [facility] 08-24-2022 07:34-0500 Body weight 156.9 kg CORNELIO WEAVER MD [facility] 08-24-2022 07:34-0500 Heart rate 77 /min CORNELIO WEAVER MD [facility] 06-21-2022 14:04-0400 Body height 177.[address] Tri Choudhury Work Phone: [facility] Work Phone: 06-21-2022 14:04-0400 Body mass index (BMI) [Ratio] 50.2 kg/m2 Dr. Tri Choudhury Work Phone: [facility] Work Phone: 06-21-2022 14:04-0400 Body temperature 97.9 [degF] Dr. Tri Choudhury Work Phone: [facility] Work Phone: 06-21-2022 14:04-0400 Body weight 158.[address] Tri Choudhury Work Phone: [facility] Work Phone: 06-21-2022 14:04-0400 Diastolic blood pressure 75 mm[Hg] Dr. Tri Choudhury Work Phone: [facility] Work Phone: 06-21-2022 14:04-0400 Heart rate 85 /min Dr. Tri Choudhury Work Phone: [facility] Work Phone: 06-21-2022 14:04-0400 Respiratory rate 16 /min Dr. Tri Choudhury Work Phone: [facility] Work Phone: 06-21-2022 14:04-0400 SaO2% (BldA) [Mass fraction] 94 % Dr. Tri Choudhury Work Phone: [facility] Work Phone: 06-21-2022 14:04-0400 Systolic blood pressure 141 mm[Hg] Dr. Tri Choudhury Work Phone: [facility] Work Phone: 06-16-2022 15:27-0400 Body mass index (BMI) [Ratio] 48.7 kg/m2 Dr. Tri Choudhury Work Phone: [facility] Work Phone: 06-16-2022 15:27-0400 Body temperature 98.2 [degF] Dr. Tri Choudhury Work Phone: [facility] Work Phone: 06-16-2022 15:27-0400 Body weight 154.[address] Tri Choudhury Work Phone: [facility] Work Phone: 06-16-2022 15:27-0400 Diastolic blood pressure 76 mm[Hg] Dr. Tri Choudhury Work Phone: [facility] Work Phone: 06-16-2022 15:27-0400 Heart rate 69 /min Dr. Tri Choudhury Work Phone: [facility] Work Phone: 06-16-2022 15:27-0400 Respiratory rate 16 /min Dr. Tri Choudhury Work Phone: [facility] Work Phone: 06-16-2022 15:27-0400 SaO2% (BldA) [Mass fraction] 97 % Dr. Tri Choudhury Work Phone: [facility] Work Phone: 06-16-2022 15:27-0400 Systolic blood pressure 127 mm[Hg] Dr. Tri Choudhury Work Phone: [facility] Work Phone: 06-05-2022 03:46-0400 Diastolic blood pressure 86 mm[Hg] Dr. Tri Choudhury Work Phone: [facility] Work Phone: 06-05-2022 03:46-0400 Heart rate 79 /min Dr. Tri Choudhury Work Phone: [facility] Work Phone: 06-05-2022 03:46-0400 Respiratory rate 18 /min Dr. Tri Choudhury Work Phone: [facility] Work Phone: 06-05-2022 03:46-0400 SaO2% (BldA) [Mass fraction] 97 % Dr. Tri Choudhury Work Phone: [facility] Work Phone: 06-05-2022 03:46-0400 Systolic blood pressure 144 mm[Hg] Dr. Tri Choudhury Work Phone: [facility] Work Phone: 06-05-2022 02:36-0400 Body temperature 98.3 [degF] Dr. Tri Choudhury Work Phone: [facility] Work Phone: 06-05-2022 00:18-0400 Body height 177.[address] Tri Choudhury Work Phone: [facility] Work Phone: 06-05-2022 00:18-0400 Body mass index (BMI) [Ratio] 48.7 kg/m2 Dr. Tri Choudhury Work Phone: [facility] Work Phone: 06-05-2022 00:18-0400 Body weight 154.[address] Tri Choudhury Work Phone: [facility] Work Phone: 06-01-2022 11:20-0400 Body temperature 97.7 [degF] CORNELIO WEAVER MD [facility] 06-01-2022 11:20-0400 Diastolic blood pressure 70 mm[Hg] CORNELIO WEAVER MD [facility] 06-01-2022 11:20-0400 Heart rate 78 /min CORNELIO WEAVER MD [facility] 06-01-2022 11:20-0400 Respiratory rate 18 /min CORNELIO WEAVER MD [facility] 06-01-2022 11:20-0400 Systolic blood pressure 130 mm[Hg] CORNELIO WEAVER MD [facility] 06-01-2022 11:01-0400 Body temperature 97.52 [degF] CORNELIO WEAVER MD [facility] 06-01-2022 11:01-0400 Diastolic blood pressure 76 mm[Hg] CORNELIO WEAVER MD [facility] 06-01-2022 11:01-0400 Heart rate 68 /min CORNELIO WEAVER MD [facility] 06-01-2022 11:01-0400 Mean blood pressure 96 mm[Hg] CORNELIO WEAVER MD [facility] 06-01-2022 11:01-0400 Reason For Taking VItal Signs CORNELIO WEAVER MD [facility] 06-01-2022 11:01-0400 Respiratory rate 16 /min CORNELIO WEAVER MD [facility] 06-01-2022 11:01-0400 Systolic blood pressure 137 mm[Hg] CORNELIO WEAVER MD [facility] 06-01-2022 10:28-0400 Body temperature 97.7 [degF] CORNELIO WEAVER MD [facility] 06-01-2022 10:28-0400 Diastolic Blood Pressure NBP 57 1 CORNELIO WEAVER MD [facility] 06-01-2022 10:28-0400 Heart rate 61 /min CORNELIO WEAVER MD [facility] 06-01-2022 10:28-0400 Mean blood pressure 69 mm[Hg] CORNELIO WEAVER MD [facility] 06-01-2022 10:28-0400 Respiratory rate 20 /min CORNELIO WEAVER MD [facility] 06-01-2022 10:28-0400 Systolic Blood Pressure NBP 111 1 CORNELIO WEAVER MD [facility] 06-01-2022 10:13-0400 Diastolic Blood Pressure NBP 60 1 CORNELIO WEAVER MD [facility] 06-01-2022 10:13-0400 Heart rate 64 /min CORNELIO WEAVER MD [facility] 06-01-2022 10:13-0400 Mean blood pressure 71 mm[Hg] CORNELIO WEAVER MD [facility] 06-01-2022 10:13-0400 Systolic Blood Pressure NBP 115 1 CORNELIO WEAVER MD [facility] 06-01-2022 09:58-0400 Body temperature 97.7 [degF] CORNELIO WEAVER MD [facility] 06-01-2022 09:58-0400 Diastolic Blood Pressure NBP 56 1 CORNELIO WEAVER MD [facility] 06-01-2022 09:58-0400 Mean blood pressure 66 mm[Hg] CORNELIO WEAVER MD [facility] 06-01-2022 09:58-0400 Systolic Blood Pressure NBP 97 1 CORNELIO WEAVER MD [facility] 06-01-2022 09:45-0400 Body temperature 97.59 [degF] CORNELIO WEAVER MD [facility] 06-01-2022 09:40-0400 Body temperature 97.57 [degF] CORNELIO WEAVER MD [facility] 06-01-2022 06:43-0400 Body height 175.3 cm CORNELIO WEAVER MD [facility] 06-01-2022 06:43-0400 Body weight 154.8 kg CORNELIO WEAVER MD [facility] 06-01-2022 06:43-0400 Diastolic blood pressure 69 mm[Hg] CORNELIO WEAVER MD [facility] 06-01-2022 06:43-0400 Heart rate 64 /min CORNELIO WEAVER MD [facility] 06-01-2022 06:43-0400 Mean blood pressure 92 mm[Hg] CORNELIO WEAVER MD [facility] 06-01-2022 06:43-0400 Systolic blood pressure 138 mm[Hg] CORNELIO WEAVER MD [facility] 05-25-2022 14:54-0400 Body height 175.3 cm Kole Mancia MD Work Phone: [facility] 05-25-2022 14:54-0400 Body temperature 98.1 [degF] Kole Mancia MD Work Phone: [facility] 05-25-2022 14:54-0400 Body weight 159.67 kg Kole Mancia MD Work Phone: [facility] 05-25-2022 14:54-0400 Diastolic blood pressure 66 mm[Hg] Kole Mancia MD Work Phone: [facility] 05-25-2022 14:54-0400 Heart rate 75 /min Kole Mancia MD Work Phone: [facility] 05-25-2022 14:54-0400 SaO2% (BldA) [Mass fraction] 99 % Kole Mancia MD Work Phone: [facility] 05-25-2022 14:54-0400 Systolic blood pressure 128 mm[Hg] Kole Mancia MD Work Phone: [facility] 05-25-2022 10:08-0400 Body height 172 cm OCRNELIO WEAVER MD [facility] 05-25-2022 10:08-0400 Body temperature 97.34 [degF] CORNELIO WEAVER MD [facility] 05-25-2022 10:08-0400 Body weight 159.3 kg CORNELIO WEAVER MD [facility] 05-25-2022 10:08-0400 diastolic 78 mm[Hg] CORNELIO WEAVER MD [facility] 05-25-2022 10:08-0400 Heart rate 64 /min CORNELIO WEAVER MD [facility] 05-25-2022 10:08-0400 systolic 138 mm[Hg] CORNELIO WEAVER MD [facility] 04-25-2022 17:42-0400 Diastolic blood pressure 78 mm[Hg] Dr. Tri Choudhury Work Phone: [facility] Work Phone: 04-25-2022 17:42-0400 Heart rate 89 /min Dr. Tri Choudhury Work Phone: [facility] Work Phone: 04-25-2022 17:42-0400 Respiratory rate 15 /min Dr. Tri Choudhury Work Phone: [facility] Work Phone: 04-25-2022 17:42-0400 SaO2% (BldA) [Mass fraction] 98 % Dr. Tri Choudhury Work Phone: [facility] Work Phone: 04-25-2022 17:42-0400 Systolic blood pressure 143 mm[Hg] Dr. Tri Choudhury Work Phone: [facility] Work Phone: 04-25-2022 16:09-0400 Body height 177.[address] Tri Choudhury Work Phone: [facility] Work Phone: 04-25-2022 16:09-0400 Body mass index (BMI) [Ratio] 49.7 kg/m2 Dr. Tri Choudhury Work Phone: [facility] Work Phone: 04-25-2022 16:09-0400 Body temperature 97.7 [degF] Dr. Tri Choudhury Work Phone: [facility] Work Phone: 04-25-2022 16:09-0400 Body weight 157.[address] Tri Choudhury Work Phone: [facility] Work Phone: 04-01-2022 09:50-0400 Body temperature 96.62 [degF] CORNELIO WEAVER MD [facility] 04-01-2022 09:50-0400 Diastolic blood pressure 65 mm[Hg] CORNELIO WEAVER MD [facility] 04-01-2022 09:50-0400 Heart rate 58 /min CORNELIO WEAVER MD [facility] 04-01-2022 09:50-0400 Mean blood pressure 82 mm[Hg] CORNELIO WEAVER MD [facility] 04-01-2022 09:50-0400 Respiratory rate 18 /min CORNELIO WEAVER MD [facility] 04-01-2022 09:50-0400 Systolic blood pressure 117 mm[Hg] CORNELIO WEAVER MD [facility] 04-01-2022 09:32-0400 Body temperature 97.16 [degF] CORNELIO WEAVER MD [facility] 04-01-2022 09:32-0400 Diastolic Blood Pressure NBP 73 1 CORNELIO WEAVER MD [facility] 04-01-2022 09:32-0400 Heart rate 66 /min CORNELIO WEAVER MD [facility] 04-01-2022 09:32-0400 Mean blood pressure 88 mm[Hg] CORNELIO WEAVER MD [facility] 04-01-2022 09:32-0400 Respiratory rate 20 /min CORNELIO WEAVER MD [facility] 04-01-2022 09:32-0400 Systolic Blood Pressure NBP 144 1 CORNELIO WEAVER MD [facility] 04-01-2022 09:17-0400 Diastolic Blood Pressure NBP 69 1 CORNELIO WEAVER MD [facility] 04-01-2022 09:17-0400 Heart rate 68 /min CORNELIO WEAVER MD [facility] 04-01-2022 09:17-0400 Mean blood pressure 84 mm[Hg] CORNELIO WEAVER MD [facility] 04-01-2022 09:17-0400 Respiratory rate 20 /min CORNELIO WEAVER MD [facility] 04-01-2022 09:17-0400 Systolic Blood Pressure NBP 136 1 CORNELIO WEAVER MD [facility] 04-01-2022 09:02-0400 Body temperature 97.34 [degF] CORNELIO WEAVER MD [facility] 04-01-2022 09:02-0400 Diastolic Blood Pressure NBP 69 1 CORNELIO WEAVER MD [facility] 04-01-2022 09:02-0400 Heart rate 70 /min CORNELIO WEAVER MD [facility] 04-01-2022 09:02-0400 Mean blood pressure 86 mm[Hg] CORNELIO WEAVER MD [facility] 04-01-2022 09:02-0400 Systolic Blood Pressure NBP 145 1 CORNELIO WEAVER MD [facility] 04-01-2022 08:50-0400 Body temperature 96.24 [degF] CORNELIO WEAVER MD [facility] 04-01-2022 08:45-0400 Body temperature 96.4 [degF] CORNELIO WEAVER MD [facility] 04-01-2022 08:40-0400 Body temperature 96.55 [degF] CORNELIO WEAVER MD [facility] 04-01-2022 06:42-0400 Body height 175.3 cm CORNELIO WEAVER MD [facility] 04-01-2022 06:42-0400 Body weight 151.5 kg CORNELIO WEAVER MD [facility] 04-01-2022 06:42-0400 Diastolic blood pressure 76 mm[Hg] CORNELIO WEAVER MD [facility] 04-01-2022 06:42-0400 Heart rate 65 /min CORNELIO WEAVER MD [facility] 04-01-2022 06:42-0400 Mean blood pressure 93 mm[Hg] CORNELIO WEAVER MD [facility] 04-01-2022 06:42-0400 Systolic blood pressure 128 mm[Hg] CORNELIO WEAVER MD [facility] 03-31-2022 11:19-0400 Body height 176 cm CORNELIO WEAVER MD [facility] 03-31-2022 11:19-0400 Body temperature 98.06 [degF] CORNELIO WEAVER MD [facility] 03-31-2022 11:19-0400 Body weight 154.1 kg CORNELIO WEAVER MD [facility] 03-31-2022 11:19-0400 diastolic 68 mm[Hg] CORNELIO WEAVER MD [facility] 03-31-2022 11:19-0400 Heart rate 80 /min CORNELIO WEAVER MD [facility] 03-31-2022 11:19-0400 systolic 121 mm[Hg] CORNELIO WEAVER MD [facility] 03-22-2022 14:50-0400 Body height 177.8 cm Renetta Alex MD Work Phone: [facility] 03-22-2022 14:50-0400 Body temperature 97.59 [degF] Renetta Alex MD Work Phone: [facility] 03-22-2022 14:50-0400 Body weight 159.67 kg Renetta Alex MD Work Phone: [facility] 03-22-2022 14:50-0400 Diastolic blood pressure 78 mm[Hg] Renetta Alex MD Work Phone: [facility] 03-22-2022 14:50-0400 Heart rate 111 /min Renetta Alex MD Work Phone: [facility] 03-22-2022 14:50-0400 SaO2% (BldA) [Mass fraction] 96 % Renetta Alex MD Work Phone: [facility] 03-22-2022 14:50-0400 Systolic blood pressure 148 mm[Hg] Renetta Alex MD Work Phone: [facility] 03-18-2022 11:19-0400 Diastolic blood pressure 96 mm[Hg] Dr. Tri Choudhury Work Phone: [facility] Work Phone: 03-18-2022 11:19-0400 Systolic blood pressure 186 mm[Hg] Dr. Tri Choudhury Work Phone: [facility] Work Phone: 03-18-2022 09:30-0400 SaO2% (BldA) [Mass fraction] 95 % Dr. Tri Choudhury Work Phone: [facility] Work Phone: 03-18-2022 09:14-0400 Body temperature 98.3 [degF] Dr. Tri Choudhury Work Phone: [facility] Work Phone: 03-18-2022 09:14-0400 Heart rate 94 /min Dr. Tri Choudhury Work Phone: [facility] Work Phone: 03-18-2022 09:14-0400 Respiratory rate 20 /min Dr. Tri Choudhury Work Phone: [facility] Work Phone: 03-18-2022 06:35-0400 Inhaled oxygen flow rate 3 L/min Dr. Tri Choudhury Work Phone: [facility] Work Phone: 03-16-2022 12:00-0400 Body height 177.[address] Tri Choudhury Work Phone: [facility] Work Phone: 03-16-2022 12:00-0400 Body weight 158.[address] Tri Choudhury Work Phone: [facility] Work Phone: 03-13-2022 01:48-0400 Body mass index (BMI) [Ratio] 50.2 kg/m2 Dr. Tri Choudhury Work Phone: [facility] Work Phone: 03-13-2022 00:49-0400 Body temperature 97.4 [degF] Dr. Tri Choudhury Work Phone: [facility] Work Phone: 03-13-2022 00:49-0400 Diastolic blood pressure 74 mm[Hg] Dr. Tri Choudhury Work Phone: [facility] Work Phone: 03-13-2022 00:49-0400 Heart rate 791 /min Dr. Tri Choudhury Work Phone: [facility] Work Phone: 03-13-2022 00:49-0400 Respiratory rate 16 /min Dr. Tri Choudhury Work Phone: [facility] Work Phone: 03-13-2022 00:49-0400 SaO2% (BldA) [Mass fraction] 99 % Dr. Tri Choudhury Work Phone: [facility] Work Phone: 03-13-2022 00:49-0400 Systolic blood pressure 136 mm[Hg] Dr. Tri Choudhury Work Phone: [facility] Work Phone: 03-12-2022 20:30-0400 Body height 177.[address] Tri Choudhury Work Phone: [facility] Work Phone: 03-12-2022 20:30-0400 Body mass index (BMI) [Ratio] 49.9 kg/m2 Dr. Tri Choudhury Work Phone: [facility] Work Phone: 03-12-2022 20:30-0400 Body weight 157.[address] Tri Choudhury Work Phone: [facility] Work Phone: 03-12-2022 13:16-0400 Body temperature 98 [degF] Dr. Tri Choudhury Work Phone: [facility] Work Phone: 03-12-2022 13:16-0400 Diastolic blood pressure 70 mm[Hg] Dr. Tri Choudhury Work Phone: [facility] Work Phone: 03-12-2022 13:16-0400 Heart rate 78 /min Dr. Tri Choudhury Work Phone: [facility] Work Phone: 03-12-2022 13:16-0400 Respiratory rate 16 /min Dr. Tri Choudhury Work Phone: [facility] Work Phone: 03-12-2022 13:16-0400 SaO2% (BldA) [Mass fraction] 98 % Dr. Tri Choudhury Work Phone: [facility] Work Phone: 03-12-2022 13:16-0400 Systolic blood pressure 132 mm[Hg] Dr. Tri Choudhury Work Phone: [facility] Work Phone: 03-12-2022 10:02-0400 Body height 177.[address] Tri Choudhury Work Phone: [facility] Work Phone: 03-12-2022 10:02-0400 Body mass index (BMI) [Ratio] 49.9 kg/m2 Dr. Tri Choudhury Work Phone: [facility] Work Phone: 03-12-2022 10:02-0400 Body weight 157.[address] Tri Choudhury Work Phone: [facility] Work Phone: 03-10-2022 14:50-0400 Body height 177.8 cm Renetta Alex MD Work Phone: [facility] 03-10-2022 14:50-0400 Body temperature 98.01 [degF] Renetta Alex MD Work Phone: [facility] 03-10-2022 14:50-0400 Body weight 158.76 kg Renetta Alex MD Work Phone: [facility] 03-10-2022 14:50-0400 Diastolic blood pressure 72 mm[Hg] Renetta Alex MD Work Phone: [facility] 03-10-2022 14:50-0400 Heart rate 87 /min Renetta Alex MD Work Phone: [facility] 03-10-2022 14:50-0400 SaO2% (BldA) [Mass fraction] 98 % Renetta Alex MD Work Phone: [facility] 03-10-2022 14:50-0400 Systolic blood pressure 144 mm[Hg] Renetta Alex MD Work Phone: [facility] 03-08-2022 13:55-0400 Body mass index (BMI) [Ratio] 49.5 kg/m2 Dr. Tri Choudhury Work Phone: [facility] Work Phone: 03-08-2022 13:55-0400 Body temperature 98 [degF] Dr. Tri Choudhury Work Phone: [facility] Work Phone: 03-08-2022 13:55-0400 Body weight 156.[address] Tri Choudhury Work Phone: [facility] Work Phone: 03-08-2022 13:55-0400 Diastolic blood pressure 78 mm[Hg] Dr. Tri Choudhury Work Phone: [facility] Work Phone: 03-08-2022 13:55-0400 Heart rate 77 /min Dr. Tri Choudhury Work Phone: [facility] Work Phone: 03-08-2022 13:55-0400 Respiratory rate 18 /min Dr. Tri Choudhury Work Phone: [facility] Work Phone: 03-08-2022 13:55-0400 SaO2% (BldA) [Mass fraction] 95 % Dr. Tri Choudhury Work Phone: [facility] Work Phone: 03-08-2022 13:55-0400 Systolic blood pressure 147 mm[Hg] Dr. Tri Choudhury Work Phone: [facility] Work Phone: 02-24-2022 14:23-0400 Body height 177.8 cm Renetta Alex MD Work Phone: [facility] 02-24-2022 14:23-0400 Body temperature 98.4 [degF] Renetta Alex MD Work Phone: [facility] 02-24-2022 14:23-0400 Body weight 158.76 kg Renetta Alex MD Work Phone: [facility] 02-24-2022 14:23-0400 Diastolic blood pressure 87 mm[Hg] Renetta Alex MD Work Phone: [facility] 02-24-2022 14:23-0400 Heart rate 78 /min Renetta Alex MD Work Phone: [facility] 02-24-2022 14:23-0400 Systolic blood pressure 151 mm[Hg] Renetta Alex MD Work Phone: [facility] 02-20-2022 10:00-0400 Body temperature 98.6 [degF] Dr. Tri Choudhury Work Phone: [facility] Work Phone: 02-20-2022 10:00-0400 Diastolic blood pressure 69 mm[Hg] Dr. Tri Choudhury Work Phone: [facility] Work Phone: 02-20-2022 10:00-0400 Heart rate 67 /min Dr. Tri Choudhury Work Phone: [facility] Work Phone: 02-20-2022 10:00-0400 Respiratory rate 18 /min Dr. Tri Choudhury Work Phone: [facility] Work Phone: 02-20-2022 10:00-0400 SaO2% (BldA) [Mass fraction] 95 % Dr. Tri Choudhury Work Phone: [facility] Work Phone: 02-20-2022 10:00-0400 Systolic blood pressure 137 mm[Hg] Dr. Tri Choudhury Work Phone: [facility] Work Phone: 02-19-2022 12:56-0400 Body height 177.[address] Tri Choudhury Work Phone: [facility] Work Phone: 02-19-2022 12:56-0400 Body weight 158.[address] Tri Choudhury Work Phone: [facility] Work Phone: 02-18-2022 23:08-0400 Heart rate 75 /min Dr. Tri Choudhury Work Phone: [facility] Work Phone: 02-18-2022 23:00-0400 Body temperature 98.8 [degF] Dr. Tri Choudhury Work Phone: [facility] Work Phone: 02-18-2022 23:00-0400 Diastolic blood pressure 90 mm[Hg] Dr. Tri Choudhury Work Phone: [facility] Work Phone: 02-18-2022 23:00-0400 Respiratory rate 20 /min Dr. Tri Choudhury Work Phone: [facility] Work Phone: 02-18-2022 23:00-0400 SaO2% (BldA) [Mass fraction] 94 % Dr. Tri Choudhury Work Phone: [facility] Work Phone: 02-18-2022 23:00-0400 Systolic blood pressure 164 mm[Hg] Dr. Tri Choudhury Work Phone: [facility] Work Phone: 02-18-2022 22:00-0400 Inhaled oxygen flow rate 2 L/min Dr. Tri Choudhury Work Phone: [facility] Work Phone: 02-18-2022 07:23-0400 Body height 177.[address] Tri Choudhury Work Phone: [facility] Work Phone: 02-18-2022 07:23-0400 Body mass index (BMI) [Ratio] 50.2 kg/m2 Dr. Tri Choudhury Work Phone: [facility] Work Phone: 02-18-2022 07:23-0400 Body weight 158.[address] Tri Choudhury Work Phone: [facility] Work Phone: 02-17-2022 13:14-0400 Body temperature 97.9 [degF] [facility] Work Phone: 02-17-2022 13:14-0400 Diastolic blood pressure 86 mm[Hg] [facility] Work Phone: 02-17-2022 13:14-0400 Heart rate 60 /min [facility] Work Phone: 02-17-2022 13:14-0400 Respiratory rate 15 /min [facility] Work Phone: 02-17-2022 13:14-0400 SaO2% (BldA) [Mass fraction] 95 % [facility] Work Phone: 02-17-2022 13:14-0400 Systolic blood pressure 168 mm[Hg] [facility] Work Phone: 02-17-2022 07:32-0400 Body height 177.8 cm [facility] Work Phone: 02-17-2022 07:32-0400 Body mass index (BMI) [Ratio] 47.3 kg/m2 [facility] Work Phone: 02-17-2022 07:32-0400 Body weight 149.68 kg [facility] Work Phone: Encounters Encounter Date Encounter Type Care Provider Facility Start: 06-03-2025 ambulatory Tri Miatul Facility: [facility] Start: 05-16-2025 ambulatory Tri Choudhury Facility: [facility] Start: 04-18-2025 End: 04-18-2025 Patient encounter procedure Ibeth POLO -[facility] Work Phone: Start: 04-18-2025 End: 04-18-[address] Tri Choudhury MD Work Phone: -[facility] Start: 03-13-2025 End: 04-11-[address] Tri Choudhury MD -Nutritional Services Work Phone: Start: 03-13-2025 End: 04-11-[address] Tri Choudhury MD Work Phone: -[facility]al Services Start: 02-19-2025 Encounter for genera l adult medical examination without abnormal findings Tri Choudhury [facility] Start: 02-13-2025 End: 02-13-[address] Tri Choudhury MD Work Phone: [facility] Work Phone: Start: 02-13-2025 End: 02-13-[address] Tri Choudhury MD -Laboratory Work Phone: Start: 02-12-2025 End: 03-11-[address] Tri Choudhury MD -Nutritional Services Work Phone: Start: 02-12-[address] Emerald Choudhury MD -Nutritional Services Work Phone: Start: 02-12-2025 End: 03-11-[address] Tri Choudhury MD Work Phone: -Nutritional Services Start: 01-07-2025 End: 01-09-[address] Tri Choudhury MD -Nutritional Services Work Phone: Start: 01-07-2025 End: 01-09-2025 ambulatory [place] Facility:[facility] Start: 12-04-2024 End: 12-10-[address] Tri Choudhury MD -Nutritional Services Work Phone: Start: 12-04-2024 End: 12-10-[address] Tri Choudhury MD Work Phone: [facility] Work Phone: Start: 11-08-2024 End: 11-09-[address] Tri Choudhury MD -Nutritional Services Work Phone: Start: 11-08-2024 End: 11-09-2024 ambulatory Tri Macey Facility:[facility] Start: 10-10-2024 End: 10-10-2024 Patient encounter procedure [facility] Work Phone: Start: 10-10-2024 End: 10-10-2024 ambulatory Tri Choudhury Facility:[facility] Start: 10-04-2024 End: 10-12-[address] Tri Choudhury MD -Nutritional Services Work Phone: Start: 10-04-2024 End: 10-12-2024 ambulatory Tri Choudhury Facility:[facility] Start: 08-07-2024 End: 08-11-[facility] Start: 07-11-2024 End: 07-12-2024 [facility] Start: 06-11-2024 End: 06-11-2024 ambulatory Tri Choudhury Facility:[facility] Start: 12-13-2023 End: 12-13-[address] Tri Choudhury Work Phone: [facility] Work Phone: Start: 12-13-2023 End: 12-13-[address] Tri Choudhury Work Phone: [facility]-Radiology, [facility] Work Phone: Start: 10-06-2023 End: 10-06-[address] Tri Choudhury Work Phone: [facility] Work Phone: Start: 09-29-2023 End: 09-29-[address] Tri Choudhury Work Phone: [facility]-Ultrasound, [facility] Work Phone: Start: 04-19-2023 ambulatory MD PAULA LEO MD Facility:A Start: 04-05-2023 End: 04-05-2023 ambulatory MD PAULA QUEZADA MD Facility:A Start: 03-31-2023 End: 04-01-2023 ambulatory MD PAULA QUEZADA MD Facility:A Start: 03-31-2023 End: 03-31-2023 Admission to [facility] PAULA QUEZADA MD [facility] Start: 03-25-2023 Chart Update Tri nolen Work Phone: [facility] 4300 Work Phone: Start: 03-18-2023 Postop follow up vis it related to original px Tri Choudhury Work Phone: [facility] Work Phone: Start: 03-18-[address] Tri Choudhury Facility:[id number] Start: 03-08-[address] Tri Choudhury Facility:[id number] Start: 03-03-2023 ambulatory TRI CHOUDHURY Facility: B Start: 03-03-2023 End: 06-02-2023 Physical therapy management TRI CHOUDHURY [facility] Start: 03-02-2023 Chart Update Tri nolen Work Phone: LD-Ixbxyej-Sdjbjei 2100 Work Phone: Start: 02-24-2023 Chart Update Tri nolen Work Phone: [facility] 4[facility] Work Phone: Start: 02-24-2023 End: 02-27-2023 Evaluation and management of inpatient Fritz Rivera 6 Rm [id number] Start: 02-23-2023 End: 02-24-2023 ambulatory [facility] Facility:A Start: 02-23-2023 End: 02-23-2023 Patient encounter procedure [facility] Start: 02-22-[address] Tri Choudhury Facility:[facility] Start: 02-22-2023 Encounter for blood typing Dr. Chavez Richardson [facility] Start: 02-22-2023 Encounter for preprocedural cardiovascular examination Dr. Chavez Richardson [facility] Start: 02-10-2023 AUDIT Referring Prov ider Unknown [facility] Work Phone: Start: 02-02-[address] Cornelio Weaver Facility:[id number] Start: 01-10-2023 End: 01-15-2023 Evaluation and management of inpatient DR LILLY DELGADO MD Facility:A Start: 01-10-2023 End: 01-15-2023 Evaluation and management of inpatient DR LILLY DELGADO MD [facility] Start: 01-10-2023 End: 01-10-2023 Emergency department patient visit LATOYA HERRERA MD Facility:B Start: 01-09-2023 End: 01-10-2023 Emergency department patient visit LATOYA HERRERA MD [facility] Start: 11-07-2022 End: 11-07-2022 Emergency department patient visit KELSI GODOY MD Facility:B Start: 11-04-2022 End: 11-04-2022 ambulatory [facility] Work Phone: Start: 11-04-2022 End: 11-04-2022 Discharged Recurring [facility]-Physical Therapy Start: 08-24-2022 End: 08-24-2022 ambulatory CORNELIO WEAVER MD Facility:A Start: 08-24-2022 End: 08-24-2022 SAME DAY STAY CORNELIO WEAVER MD [facility] Start: 08-18-2022 End: 08-18-[address] Tri Choudhury Work Phone: [facility] Work Phone: Start: 08-18-2022 End: 08-18-[address] Tri Choudhury Work Phone: [facility]-Laboratory Start: 06-21-2022 End: 06-21-[address] Tri Choudhury Work Phone: [facility]-Pulmonary Medicine [facility] Start: 06-16-2022 End: 06-16-[address] Tri Choudhury Work Phone: [facility] Start: 06-05-2022 End: 06-05-2022 Emergency department patient visit Dr. Tri Choudhury Work Phone: [facility]-Emergency Department Start: 06-01-2022 End: 06-01-2022 ambulatory CORNELIO WEAVER MD Facility:A Start: 06-01-2022 End: 06-01-2022 SAME DAY STAY CORNELIO WEAVER MD [facility] Start: 05-25-2022 End: 05-25-2022 ambulatory KOLE MANCIA Facility:[facility] Start: 05-25-2022 End: 05-25-2022 Patient encounter procedure Kole Mancia MD Work Phone: General Surgery Comment on above: Aftercare (Primary D x); Abnormal biliary HIDA scan Start: 05-25-2022 Telephone encounter Renetta Shelby MD Work Phone: General Surgery Comment on above: Patient Question Start: 05-25-2022 End: 05-26-2022 ambulatory CORNELIO WEAVER MD Facility:A Start: 05-25-2022 End: 05-25-2022 Admission to establishment CORNELIO WEAVER MD [facility] Start: 05-20-2022 End: 05-20-2022 ambulatory CORNELIO WEAVER Facility:[facility] Start: 05-20-2022 End: 05-20-2022 Subsequent hospital visit by physician Gisella [facility] (I-Stat) Work Phone: Cat Scan Comment on above: Perforation of gallb ladder [K82.2] Start: 05-07-2022 End: 05-07-[address] Tri Choudhury Work Phone: [facility] Work Phone: Start: 05-07-2022 End: 05-07-[address] Tri Choudhury Work Phone: [facility]-Laboratory Start: 04-28-2022 Telephone encounter Renetta Shelby MD Work Phone: General Surgery Comment on above: Patient Update Start: 04-26-2022 Non-patient / Non-visit Dr. Lee Choudhury Work Phone: [facility] Start: 04-26-2022 End: 04-26-[address] Tri Choudhury Work Phone: [facility]-Cardiovascular Services Start: 04-25-2022 End: 04-25-2022 Emergency department patient visit Dr. Tri Choudhury Work Phone: [facility]-Emergency Department Start: 04-19-2022 Telephone encounter Renetta [...] 04-01-2022 SAME DAY STAY CORNELIO WEAVER MD [facility] Start: 03-31-2022 End: 03-31-2022 Admission to establishment CORNELIO WEAVER MD [facility] Start: 03-29-2022 Telephone encounter Renetta Shelby MD Work Phone: General Surgery Comment on above: Schedule Evaluation Referral Request ([facility]) Start: 03-24-2022 End: 03-24-[address] Tri Choudhury Work Phone: [facility] Start: 03-23-2022 Telephone encounter Renetta Shelby MD Work Phone: General Surgery Comment on above: Patient Update Start: 03-22-2022 End: 03-22-2022 ambulatory RENETTA ALEX Facility:[facility] Start: 03-22-2022 End: 03-22-2022 Patient encounter procedure Renetta Alex MD Work Phone: General Surgery Comment on above: Status post cholecys tectomy (Primary Dx) Start: 03-18-2022 Non-patient / Non-visit Dr. Lee Choudhury Work Phone: [facility] Start: 03-17-2022 Non-patient / Non-visit Dr. Lee Choudhury Work Phone: [facility] Start: 03-16-2022 Non-patient / Non-visit Dr. Lee Choudhury Work Phone: [facility] Start: 03-13-2022 End: 03-18-2022 Evaluation and management of inpatient Dr. Tri Choudhury Work Phone: [facility]-Medical Surgical 3 Start: 03-12-2022 Non-patient / Non-visit Dr. Lee Choudhury Work Phone: [facility] Start: 03-12-2022 End: 03-12-2022 Admission to same day surgery center Dr. Tri Choudhury Work Phone: [facility]-Endoscopy Start: 03-10-2022 End: 03-10-2022 ambulatory RENETTA ALEX Facility:[facility] Start: 03-10-2022 End: 03-10-2022 Patient encounter procedure Renetta Alex MD Work Phone: General Surgery Comment on above: Status post cholecys tectomy (Primary Dx) Start: 03-08-2022 End: 03-08-[address] Tri Choudhury Work Phone: [facility] Start: 03-04-2022 End: 03-04-2022 ambulatory RENETTA ALEX Facility:[facility] Start: 03-04-2022 End: 03-04-2022 Subsequent hospital visit by physician [facility] Work Phone: Nuclear Medicine Comment on above: Status post cholecys tectomy [Z90.49] Start: 03-03-2022 End: 03-03-2022 ambulatory RENETTA ALEX Facility:[facility] Start: 03-03-2022 End: 03-03-2022 Nursing evaluation of patient and report Nurse Antoinette [facility] Work Phone: General Surgery Comment on above: Status post cholecys tectomy (Primary Dx) Start: 03-03-2022 Telephone encounter Renetta Shelby MD Work Phone: General Surgery Comment on above: Patient Question Patient Update Start: 02-27-2022 End: 02-27-[address] Tri Choudhury Work Phone: [facility] Start: 02-24-2022 End: 02-24-2022 ambulatory RENETTA ALEX Facility:[facility] Start: 02-24-2022 End: 02-24-2022 Patient encounter procedure Renetta Alex MD Work Phone: General Surgery Comment on above: Status post cholecys tectomy (Primary Dx); Bile leak; Morbid obesity (HCC) Start: 02-20-2022 Non-patient / Non-visit Dr. Lee Choudhury Work Phone: [facility] Start: 02-19-2022 Non-patient / Non-visit Dr. Lee Choudhury Work Phone: [facility] Start: 02-18-2022 End: 02-20-2022 Evaluation and management of inpatient Dr. Tri Choudhury Work Phone: [facility] Start: 02-18-2022 Non-patient / Non-visit Dr. Lee Choudhury Work Phone: [facility] Start: 02-17-2022 Evaluation and management of inpatient [facility] Start: 02-17-2022 Non-patient / Non-visit Dr. Lee Choudhury Work Phone: [facility] Start: 02-16-2022 End: 02-16-2022 Patient encounter procedure [facility]-Laboratory Start: 11-05-2019 End: 11-05-2019 Patient encounter procedure [facility] Start: 06-29-2019 End: 06-29-2019 Patient encounter procedure [facility] Preoperative state Tri leo Work Phone: [facility] Work Phone: Procedures Date Procedure Procedure Detail Performing Clinician Start: 02-13-2025 Prostate specific antigen measurement Dr. Tri Choudhury MD Work Phone: Comment on above: This test was performed using the [employer] tPSA method. Measured values of a patient sample can vary depending on the testing procedure used. PSA values determined on patient samples by different testing procedures cannot be used interchangeably. If there is a change in PSA assays while monitoring therapy, sequential testing should be performed to confirm baseline values. Start: 12-13-2023 X-ray of lumbosacral spine Dr. Tri villa Work Phone: Start: 09-29-[address] Tri villa Work Phone: Start: 02-22-[address] Tri Choudhury Comment on above: Performed By: #### T+S ####[id number] [place] [address] Start: 12-11-2022 Biliary stent (physical object) PAULA [...] on above: as a child fell in [facility]- mult iple surgeries Arthroscopic trimmin g of meniscus CORNELIO WEAVER MD Comment on above: right Cholecystectomy Referring Provider Unknown Colonoscopy CORNELIO WEAVER MD Genus Meniscus (organism) NA MISA WEAVER MD Comment on above: knee right knee History of cholecystectomy Statu s post cholecystectomy Dr. Tri Choudhury Work Phone: History of cholecystectomy Statu s post cholecystectomy Renetta Alex MD Work Phone: History of cholecystectomy Statu s post cholecystectomy Nurse Gens [facility] Work Phone: History of cholecystectomy Statu s post cholecystectomy [facility] Work Phone: History of cholecystectomy Statu [...] Chavez Richardson, Status: Pen, Time: 10:15 AM QC-Howxwgx-Lslhf in [facility] 4300 Work Phone: Start: 03-08-2023 Patient encounter procedure [facility] Start: 03-08-2023 POV, Provider: Chavez Richardson, Status: Pen, Time: 10:30 AM POV, Provider: Chavez Richardson, Status: Pen, Time: 10:30 AM SH-Bodfnru-Tnmuz ll 2100 Work Phone: Start: 02-25-2023 End: 02-26-2024 [facility] Start: 02-25-2023 End: 02-27-2023 Ketorolac Injectable 15 mg IntraVenous Push Every 6 Hours PRN ; (TORADOL)DOSE = 15 mg IntraVenous Push Every 6 HoursStop After 10 Doses Start: 25-Feb-2023 End: 27-Feb-2023 Ordered: 25-Feb-2023 Justa Blackman Intent [facility] Start: 02-24-2023 End: 02-25-2024 Sodium Chloride 0.9% Injectable Flush Peripheral Line ; via Peripheral LineVolume = 10 mL IntraVenous Flush Every 8 Hours and as Needed Start: 24-Feb-2023 End: 24-Feb-2024 Ordered: 24-Feb-2023 Dmitry Norris Intent [facility] Start: 02-24-2023 End: 02-25-2024 Naloxone Injectable 0.4 mg IntraVenous Push Once ; (NARCAN)DOSE = 0.2 mg IntraVenous Push Once, PRN patient is unarousable, and respiratory rate lessClinician Notes: HOLD BASKET TURNER Infusion and notify H.O. immediately Start: 24-Feb-2023 End: 24-Feb-2024 Ordered: 24-Feb-2023 Dmitry Norris Intent Comments: HOLD BASKET TURNER Infusion and notify H.O. immediately [facility] Comment on above: HOLD BASKET TURNER Infusion and notify H.O. immedi ately Start: 02-24-2023 End: 02-25-2024 Ropivacaine 0.2%/ Ambit Pump 500 mL . ; SolutionPeripheral Nerve FLOW RATE = 6 mL/hrClinician Notes: Dispense premix bag for use with Ambit pump only. Start: 24-Feb-2023 End: 24-Feb-2024 Ordered: 24-Feb-2023 Rajat Armendariz Intent Comments: Dispense premix bag for use with Ambit pump only. [facility] Comment on above: Dispense premix bag for use with Ambit p ump only. Start: 02-24-2023 [facility], Provider: Chavez Richardson, Status: Pen, Time: 8:[address] [facility], Provider: Chavez Richardson, Status: Pen, Time: 8:00 AM IF-Jztkmbd-Zsnth in [facility] 4300 Work Phone: Start: 05-13-2022 Influenza vaccination [facility] Start: 04-25-2022 US.doppler Lower extremity vein [facility] Work Phone: Start: 04-25-2022 [facility] Work Phone: Start: 03-18-2022 Patient discharge [facility] Work Phone: Start: 03-16-2022 Consultation [facility] Work Phone: Start: 03-13-2022 Lipase measurement [facility] Work Phone: Start: 03-13-2022 Application of intermittent pneumatic compression device [facility] Work Phone: Start: 03-13-2022 Following clinical pathway protocol [facility] Work Phone: Start: 03-13-2022 Admission procedure [facility] Work Phone: Start: 03-13-2022 Maintenance of drainage tube [facility] Work Phone: Start: 03-13-2022 Patient referral to dietitian [facility] Work Phone: Start: 03-12-2022 Ercp stent placement biliary/pancreatic duct ERCP DUCT STENT PLACEMENT [facility] Work Phone: Start: 03-12-2022 Patient discharge [facility] Work Phone: Start: 02-20-2022 Patient discharge [facility] Work Phone: Start: 02-19-2022 Referral to occupational therapist [facility] Work Phone: Start: 02-19-2022 Referral to service [facility] Work Phone: Start: 02-18-2022 Admission procedure [facility] Work Phone: Start: 02-18-2022 Total cholecystectomy and exploration of common bile duct Laparoscopic, Cholecystectomy with IOC (Not Applicable) [facility] Work Phone: Start: 02-17-2022 [facility] Work Phone: Start: 02-17-2022 Following clinical pathway protocol [facility] Work Phone: Start: 02-17-2022 Incentive spirometry [facility] Work Phone: Start: 02-17-2022 Admission procedure [facility] Work Phone: Start: 02-17-2022 Application of intermittent pneumatic compression device [facility] Work Phone: Start: 02-17-2022 [facility] Work Phone: Start: 2015 PROSTATE CANCER SCREENING DISCUSSION PROSTATE CANCER SCREENING DISCUSSION [facility] Start: 2010 SHINGRIX VACCINE (1 of 2) SHINGRIX VACCINE (1 of 2) [facility] Start: 2005 COLOGUARD (FIT-DNA) COLOGUARD (FIT-DNA) [facility] Start: 2005 Colonoscopy COLONOSCOPY [facility] Start: 2005 COLORECTAL CANCER SCREENING COLORECTAL CANCER SCREENING [facility] Start: [address] COLONOGRAPHY [facility] Start: 2005 DIABETES SCREEN DIABETES SCREEN [facility] Start: 2005 FECAL OCCULT BLOOD FECAL OCCULT BLOOD [facility] Start: 2005 SIGMOIDOSCOPY SIGMOIDOSCOPY [facility] Start: 1995 LIPID SCREEN LIPID SCREEN [facility] Start: 1979 Urine microalbumin profile DTAP,TDAP,TD (1 - Tdap) [facility] Start: 1978 HEPATITIS C SCREENING HEPATITIS C SCREENING [facility] Start: 1978 HIV SCREENING HIV SCREENING [facility] Start: 1972 Adult depression screening assessment DEPRESSION SCREENING [facility] Start: 1965 COVID-19 VACCINE (#1) COVID-19 VACCINE (#1) [facility] Start: 03-24-1961 COVID-19 VACCINE (#1) COVID-19 VACCINE (#1) [facility] Endoscopic retrograd e cholangiopancreatography [facility] Work Phone: End: 03-26-2023 Hepatobiliary syst imaging including gallbladder NM HEPATOBILIARY WO RX Radiology Routine Status post cholecystectomy 1 Occurrences starting 02/24/2022 until 03/26/2023 [facility] Work Phone: Comment on above: 1 Occurrences starting 02/24/2022 until 03/26/2023 Lipase measurement [facility] Work Phone: Patient Education [facility] Work Phone: Patient referral [facility] Work Phone: [facility] Payers Date Payer Category Payer Self-pay [id number] 2022 Unknown [id number] 2019 Unknown [id number] 2019 Unknown MMO MMO SUPERMED PLUS [id number] 2019-Present [phone] [address] [place] [address] PPO [id number] 2019 Unknown [id number]. 1.13.159.2.7 .[id number] 2016 Private Health Insurance [id number] 1960 Unknown [id number] 2.16.840.1.380125.3.579.2.6 51 1960 Unknown [id number] 2.16.840.1.953315.3.579.2.3 56 1960 Unknown [id number] 2.16.840.1.461608.3.579.2.3 56 1960 Unknown [id number] 2.16.840.1.411267.3.579.2.3 56 1960 Unknown [id number] 2.16.840.1.598034.3.579.2.3 56 1960 Unknown [id number] 2.16.840.1.028704.3.579.2.3 56 1960 Unknown [id number] 2.16.840.1.426536.3.579.2.6 27 1960 Unknown [id number] 2.16.840.1.737451.3.579.2.6 27 1960 Unknown [id number] 2.16.840.1.007296.3.579.2.6 27 1960 Unknown [id number] 2.16.840.1.853868.3.579.2.6 27 1960 Unknown [id number] 2.16.840.1.305189.3.579.2.6 27 1960 Unknown [id number] 2.16.840.1.985827.3.579.2.6 27 1960 Unknown [id number] 2.16.840.1.547886.3.579.2.6 27 1960 Unknown [id number] 2.16.840.1.054463.3.579.2.6 27 1960 Unknown [id number] 2.16.840.1.153360.3.579.2.6 27 1960 Unknown [id number] 2.16.840.1.598098.3.579.2.6 27 1960 Unknown [id number] 2.16.840.1.821822.3.579.2.6 27 1960 Unknown [id number] 2.16.840.1.198221.3.579.2.6 27 Unknown [id number] 2.16.840.1.532839.3.579.2.4 62 Unknown [id number] 2.16.840.1.121046.3.579.2.4 62 Unknown [id number] 2.16.840.1.423129.3.579.2.4 62 Unknown [id number] 2.16.840.1.372400.3.579.2.4 62 Unknown [id number] 2.16.840.1.074916.3.579.2.4 62 Unknown [id number] 2.16.840.1.811584.3.579.2.4 62 Unknown [id number] 2.16.840.1.147895.3.579.2.4 62 Unknown [id number] 2.16.840.1.899546.3.579.2.4 62 Unknown [id number] 2.16.840.1.915091.3.579.2.4 62 Unknown [id number] 2.16.840.1.691072.3.579.2.4 62 Unknown [id number] 2.16.840.1.875244.3.579.2.4 62 Unknown [id number] 2.16.840.1.515670.3.579.2.4 62 Unknown [id number] 2.16.840.1.339696.3.579.2.4 62 Unknown [id number] 2.16.840.1.137394.3.579.2.4 62 Social History Date Type Detail Facility Start: 02-17-2022 End: 10-06-2023 Tobacco smoking status VAIS Unknown if ever smoked [facility] Start: 1960 Sex Assigned At Male [facility] Start: 02-24-2022 End: 10-06-2023 Tobacco smoking status NHIS Never smoked tobacco [facility] Start: 02-24-2022 End: 05-25-2022 Tobacco use and exposure Smokeless tobacco non-user [facility] Start: 1960 Sex Assigned At Not on file [facility] Start: 02-14-2022 End: 05-25-2022 Exposure to SARS-CoV-2 (event) Not sure [facility] Start: 02-21-2022 End: 03-03-2022 Exposure to SARS-CoV-2 (event) Unable to assess [facility] Work Phone: Start: 03-10-2022 End: 05-25-2022 Alcohol intake Lifetime non-drinker (finding) [facility] Start: 03-10-2022 History SDOH Alcohol Frequency 1 [facility] Tobacco smoking status Smoker (finding) A [facility] Sex Assigned At Sex [facility] Never a smoker Never a smoker [facility] [address] Work Phone: Start: 12-11-2024 Sex Male (finding) [facility] Medical Equipment Procedure Code Equipment Code Equipment Origin al Text Equipment Identifier Dates Total cholecystectomy with exploration of common bile duct CLIP,MICH PEDERSON FDA Start: 02-18-2022 Total cholecystectomy with exploration of common bile duct Ligation clip, synthetic polymer, non-bioabsorbable ()[id number] 5 FDA Start: 02-18-2022 Total cholecystectomy with exploration of common bile duct CLIP,MICH PEDERSON FDA Start: 02-18-2022 Total cholecystectomy with exploration of common bile duct CLIP,MICH PEDERSON FDA Start: 02-18-2022 Total cholecystectomy with exploration of common bile duct CLIPMICH LG FDA Start: 02-18-2022 Total cholecystectomy with exploration of common bile duct CLIPMICH LG FDA Start: 02-18-2022 Total cholecystectomy with exploration of common bile duct CLIPMICH LG FDA Start: 02-18-2022 Total cholecystectomy with exploration of common bile duct CLIPMICH LG FDA Start: 02-18-2022 Total cholecystectomy with exploration of common bile duct CLIP,MICH PEDERSON FDA Start: 02-18-2022 Total cholecystectomy with exploration of common bile duct CLIP,HEMMILTON PEDERSON FDA Start: 02-18-2022 Total cholecystectomy with [...] bile duct CLIP,MICH PEDERSON FDA Start: 02-18-2022 ERCP (endoscopic retrograde [...] Facility 03-31-2023 Functional Status Sensory Deficits None A [facility] 03-03-2023 Functional Status Home Living Ad [...] - bilat tested in seated part range [facility] 01-15-2023 Functional Status Room check performed [facility] 01-15-2023 Functional Status [facility] 01-14-2023 Functional Status Up with assistance [facility] 01-14-2023 Functional Status [facility] 01-14-2023 Functional Status NPO Status Maintained [facility] 01-14-2023 Functional Status [facility] 01-14-2023 Functional Status [facility] 01-13-2023 Functional Status Lunch Percent [address] [facility] 01-13-2023 Functional Status [facility] 01-13-2023 Functional Status [facility] 01-12-2023 Functional Status [facility] 01-12-2023 Functional Status [facility] 01-11-2023 Functional Status [facility] 01-11-2023 Functional Status [facility] 01-10-2023 Functional Status Living Situati on Lives with spouse [facility] 01-10-2023 Functional Status [facility] 01-09-2023 Functional Status Standard Safet y ID band on, Call device within reach, Bed in low position, Wheels locked, Visitor at bedside, Safety level maintained [facility] 08-24-2022 Functional Status Awake [facility] 08-24-2022 Functional Status [facility] 08-24-2022 Functional Status Maintained [facility] 08-17-2022 Functional Status Sensory Deficits None A [facility] 06-01-2022 Functional Status Ambulating in room [facility] 06-01-2022 Functional Status [facility] 06-01-2022 Functional Status Maintained [facility] 04-01-2022 Functional Status Awake [facility] 04-01-2022 Functional Status ice chips and sips take n [facility] 04-01-2022 Functional Status [facility] 03-31-2022 Functional Status Sensory Deficits None A [facility] 03-18-2022 Functional status Ambulates;Up ad chrystal [facility] Work Phone: 02-20-2022 Functional status Ambulates [facility] Work Phone: 02-18-2022 Functional status Activity Abili ty With Assist of 2 [facility] Work Phone: 02-18-2022 Functional status Patient Activity Ambula carol [facility] Work Phone: 02-18-2022 Functional status Assistive Devices None [facility] Work Phone: Functional observable [facility] Mental Status Date Assessment Result Facility 02-25-2023 Cognitive functi [facility] [id number] [facility] 01-15-2023 Mental Status Orientation Oriented x 4 [facility] 01-14-2023 [facility] Status [facility] 01-14-2023 Mental Status [facility] 01-13-2023 Mental Status [facility] 01-09-2023 Mental Status Orientation Oriented x 4 [facility] 08-24-2022 Mental Status Oriented x 4 [facility] 08-24-2022 Mental Status [facility] 06-01-2022 Mental Status Oriented x 4 [facility] 06-01-2022 Mental Status [facility] 04-01-2022 Mental Status Oriented x 4 [facility] 04-01-2022 Mental Status [facility] 03-18-2022 Cognitive function Voice/Name [facility] Work Phone: 03-12-2022 Cognitive function Drowsy [facility] Work Phone: 03-12-2022 Cognitive function Arousable To Voice/Nam e [facility] Work Phone: 02-20-2022 Cognitive function Voice/Name [facility] Work Phone: 02-18-2022 Cognitive function Level Of Cons ciousness Awake;Alert;Appropriate;Follow s Commands [facility] Work Phone: 02-18-2022 Cognitive function Voice/Name [facility] Work Phone: 02-18-2022 Cognitive function Mood Descript ion Appropriate;Calm;Relaxed [facility] Work Phone: Clinical Notes 02-25-2022 to 10-10-2024 Note Date & Type Note Facility 10-10-2024 Evaluation note Diagnosis Onset Date Resolution Morbid obesity chronic October 102024 9:41am ABDULKADIR (obstructive sleep apnea) chronic October 10 9:41am [facility] Work Phone: 1(239) 501-623006-18-2023 NoteSend Summary: Discharge Summary Providers: Provider RoleProvider Name ReferringCornelio Weaver Richard Nurse PractitionerJusta Fisher Hannah E Note Recipients: Cornelio Weaver MD - [id number] [] Tri Choudhury MD - [id number] [] Discharge: Summary: Admission Date: .24-Feb-2023 07:51:00 Discharge Date: 27-Feb-2023 Attending Physician at Discharge: Fritz Zabala Admission Reason: s/p open cholecystectomy(1) Final Discharge Diagnoses: Encounter for cholecystectomy Procedures: Date: 24-Feb-2023 14:55:00 Procedure Name: Open Remnant Choly with 'Gram Condition at Discharge: Satisfactory Disposition at Discharge: .Home Vital Signs: T PRBPMAPSpO2 [id number]/7693% Date/Time02/27 9:4902/27 9:4902/27 9:4902/27 9:4902/27 9:49 Range(36.1C - 37C ) (60 - 71 ) (18 - 18 ) (104 - 146 )/ (56 - 79 ) (91% - 93% ) Highest temp of 37 C was recorded at 02/26 6:10 Date: Weight/Scale Type:Height: 24-Feb-2023 22:87892.8 kg / jun829.2 cm Physical Exam: General: Appears comfortable, in [...] post-op appointment Scheduled Date/Time: 08-Mar-2023 10:30 Location: [address] Discharge Medications: Home Medication amLODIPine [...] the note. I personally evaluated the patient [id number] Electronic Signatures: Fritz Zabala) (Signed 28-Feb-2023 14:36) Authored: Note Completion Co-Signer: Send Summary, Summary Content, Ongoing Care, DNR Status, Note Completion Chacha Yeung (Resident)) (Signed 27-Feb-2023 16:12) Authored: Send Summary, Summary Content, Ongoing Care, DNR Status, Note Completion Last Updated: 28-Feb-2023 14:36 by Fritz Zabala) References: 1. Data Referenced From Consult-Anesthesia - Pain 24-Feb-2023 11:36[facility]06-16-20[facility] History of Present illness Narrative* Mr Cerda [...] his lamont and applied Mastisol and Steri-Strips. [id number] Work Phone: 1(164) 190-237506-16-2023 NoteClinical Note - Pharmacy v2: Education: Document TopicMedication Education MedicationMeds to Beds: Patient declines Meds to Beds service at discharge. Preferred local pharmacy has been updated to: [facility] in [place], [place] Sources used to confirm home medication list: patient/spouse interview (spouse had written med list with all strengths of tablets and dosing instructions), [facility] pharmacy fill history, [facility] (tramadol 50mg 3 day supply on 01/15, not taking) Medication reconciliation complete Please reach out via [employer] for questions, or if no response call [employer] or [employer] Gustavo Naranjo, Jarvis, Transitions of Care Pharmacist [facility] Additional NotesHome Medications Review [...] No Known Allergies Electronic Signatures: Gustavo Naranjo ([facility]) (Signed 25-Feb-2023 09:35) Authored: Education, Allergy Last Updated: 25-Feb-2023 09:35 by Gustavo Naranjo ([facility]06-15-2023 NotePost Operative Note: PreOp Diagnosis: Gallstones Post-Procedure Diagnosis: Same Procedure: Open Remnant Choly with 'Gram Surgeon: Dylan Resident/Fellow/Other Wildlife Conservation Officer: Jr Anesthesia: GET I.V. Fluids: 800 ml [...] Note Completion Last Updated: 24-Feb-2023 14:59 by Chavez Richardson)[facility]06-15-2023 NoteHistory & Physical Reviewed: I have reviewed [...] the following: I personally evaluated the patient [id number] Comments/ Additional Findings Pt seen in preop. No changes since kn visit. Got echo yesterday which PAT pleased with. Electronic Signatures: Chavez Richardson) (Signed 24-Feb-2023 10:19) Authored: Note Completion Co-Signer: History & Physical Reviewed, ERAS, Consent, Note Completion Dmitry Norris (Resident)) (Signed 24-Feb-2023 10:13) Authored: History & Physical Reviewed, ERAS, Consent, Note Completion Last Updated: 24-Feb-2023 10:19 by Chavez Richardson)[facility]05-30-2023 Note. MICRO - Microbiology PROCEDURE: Blood Culture [...] Producing Genes: Not Detected TEST PERFORMED BY: [facility] [address] [place] [id number] Klebsiella pneumoniae Isolated from anaerobe bottle only. Blood Culture with fungus: No growth of fungus at 4 weeks. 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 Infection control has been notified. Carbapenemase Producing Genes: Not Detected TEST PERFORMED BY: [facility] [address] [place] [id number] Klebsiella pneumoniae Isolated from anaerobe bottle only. [...] Locations *1: This test was performed at: [facility], [address] [place] [address], [address] , [facility]01-20-2023 Discharge summary Author Oscar Tubbs [facility] January 20, 2023 11:46am Note Date/Time January 20, 2023 11:46 am [facility] Physical Therapy [facility] [address] [place] [address] / REHABILITATION SERVICES DISCHARGE SUMMARY MR#: [id number] Acct: [id number] Name: GUSTAVO CERDA Rep #: [id number] : 1960 62 From: Oscar Tubbs DPT, OCS, CSCS Referring Dr.: Dr. Tri Choudhury MD Status: REG RCR Insurance: [facility] SELF PAY INSURANCE GUSTAVO CERDA was seen [...] appropriate by the physician. Thank you! Oscar Tubbs DPT, OCS, CSCS Balance/Gait/Functional tests - Balance/Special Test Scores Lower Extremity Functional Score: 40 <Electronically signed by Oscar Tubbs DPT, ANA M, CSCS> 01/20/23 1146 CC: Dr. Tri Choudhury MD ~ EBG Signed [facility] Work Phone: [phone]) 147-610905-07-2023 Note. MICRO - Microbiology PROCEDURE: Blood Culture [...] Locations *1: This test was performed at: [facility], [address] [place] [address], [phone] , [facility] ([place]01-15-2023 Hospital Discharge instructions Patient Education 01/15/2023 14:02:58 [...] canola oil, flaxseeds, walnuts, almonds, and seeds. ?Mathews-3 fats. These are found in foods such [...] oatmeal, bulgur, barley, quinoa, or brown rice. Eldred or whole wheat flour tortillas. Vegetables Fresh [...] or reduced-fat mayonnaise and salad dressings. Avocado. Latta, canola, sesame, or safflower oils. The items [...] meat. Dairy Whole or 2% milk, cream, [id number], and cream cheese. Whole milk cheeses. Whole-fat or sweetened yogurt. Full-fat cheeses. Nondairy creamers and whipped toppings. Processed cheese, cheese spreads, and cheese curds. Beverages Alcohol. Sugar-sweetened drinks such as sodas, lemonade, and fruit drinks. Fats and oils Butter, stick margarine, lard, shortening, ghee, or regalado fat. Coconut, palm kernel, and palm oils. Sweets and desserts Eldred syrup, sugars, honey, and molasses. Candy. Jam [...] 08/29/2006 Document Revised: 08/11/2018 Document Reviewed: 05/16/2018 [employer] Patient Education 2020 [employer]. Follow Up Care 01/10/2023 03:54:06 With:TRI CHOUDHURY Address: [address] [place] [phone] When:1-2 days With:MD PAULA QUEZADA MD Address: [address] [place] [phone] When:5 to 7 days With:PAVAN DALY DO, Surgery Address: [address] [facility] [address] [facility] [place] [place] [address]- [phone] When: only if needed Comments:Please call with any questions or concerns. Will facilitate follow-up with [facility]. [facility] 05-06-2023 Surgery Hospital Progress note Date [...] by ARACELI WONG on 01/15/2023 10:55 AM [facility] [id number] Note Discharge Instructions Thank you for allowing Lolita [...] CHOUDHURY When Within 1-2 days Where: [address] [place] [phone] Follow Up with MD PAULA QUEZADA MD When Within 5 to 7 days Where: [address] [place] [phone] Follow Up with PAVAN DALY DO, Surgery When Only if needed Why: Please call with any questions or concerns. Will facilitate follow-up with [facility]. Where: [address] [facility] [address] [place] [address]- [phone] The Following Activity and Diet Have Been [...] 12 hours Duration: 7 Days Pickup at [facility]/pharmacy #[id number] New pantoprazole (pantoprazole 40 mg oral enteric coated tablet) 1 tab(s) by mouth Once a day before a meal Pickup at [facility]/pharmacy #[id number] New traMADol (Ultram 50 mg oral tablet) 1 tab(s) by mouth Every 6 hours as needed for as needed for pain Acute post-operative pain Duration: 3 Days Pickup at [facility]/pharmacy #3321 Unchanged amLODIPine (amLODIPine 10 mg oral tablet) 1 tab(s) by mouth Once a day (in the morning) Unchanged lisinopril (lisinopril 20 mg oral tablet) 1 tab(s) by mouth Once a day (in the morning) Unchanged omega-3 polyunsaturated fatty acids (omega-3 fish oil 1000 mg oral capsule) 1 cap by mouth Once a day (in the morning) Pharmacy Information [facility]/pharmacy #[id number]: [address] [place], [place] [phone] Please take this list to your next [...] oil, flaxseeds, walnuts, almonds, and seeds. ? Mathews-3 fats. These are found in foods such [...] oatmeal, bulgur, barley, quinoa, or brown rice. Eldred or whole wheat flour tortillas. Vegetables Fresh [...] or reduced-fat mayonnaise and salad dressings. Avocado. Latta, canola, sesame, or safflower oils. The items [...] meat. Dairy Whole or 2% milk, cream, [id number], and cream cheese. Whole milk cheeses. Whole-fat or sweetened yogurt. Full-fat cheeses. Nondairy creamers and whipped toppings. Processed cheese, cheese spreads, and cheese curds. Beverages Alcohol. Sugar-sweetened drinks such as sodas, lemonade, and fruit drinks. Fats and oils Butter, stick margarine, lard, shortening, ghee, or regalado fat. Coconut, palm kernel, and palm oils. Sweets and desserts Eldred syrup, sugars, honey, and molasses. Candy. Jam [...] 08/29/2006 Document Revised: 08/11/2018 Document Reviewed: 05/16/2018 [employer] Patient Education 2020 [employer]. Additional Information VACCINATE! IT SAVES LIVES! Members of the community who have not yet received the COVID-19 vaccine and would like to receive it can visit one of [facility] vaccine clinics. There are many vaccine clinic locations within the [facility]. For locations and available times, please visit [email or web address].[place].gov/. It is important to note that some COVID mobile vaccine clinics are held outdoors and may be canceled in rainy or stormy conditions. To learn more about pediatric vaccinations (ages 5-11), we invite you to visit the [facility] webpage. [email or web address] learn more about the COVID-19 vaccine, we invite you to visit the CDC website for a list of frequently asked questions. https://www.cdc.gov/coronavirus/2019-ncov/vaccines/faq.html [facility] Patient Portal Access Instructions: Stay connected with your healthcare team and access your personal medical information anytime with the [employer] Patient Portal.If you would like a full copy of your medical records, please contact the [facility] Medical Records Department, Tuesday through Tuesday between 8a.m. and 4:30p.m. Please follow the directions below to access the portal: 1.Access the email account you provided upon registration to the [facility].2.Look for an invitation email from [facility].3.Open the email and access the invitation link: Accept Invitation to [facility]4.Fill in the required montero to create your account. Sign into [email or web address] with your username and password that you [...] you will allow to register on the [employer] Patient Portal for access to your information. You can also access the [employer] Patient Portal on the [employer]. Simply click on Health Records under [employer] and then click on the [employer] logo. HOW TO SAFELY DISPOSE OF PRESCRIPTION [...] Call your local pharmacy or go to http://AMT [employer]Inception [employer]/5A8Yy9z to find one close to you.3.Make use of household items: Use cat litter or old coffee grounds to dispose medications if other options arenot available. Mix your drugs with these household products, seal them in an airtight container andthrow it into the garbage. Call [facility]: [phone] to be sure your drugs can be [...] aware that I should contact my doctor. Patient/Rn Recruitment Signature: Date/Time: Relationship to Patient: Witness Name/Signature: Date/Time: [facility] Discharge summary Date of Service 01/15/2023 Discharge [...] Patient presented earliertoday as a transfer from [place] with severe epigastric/abdominal pain nausea, vomiting of [...] CHOUDHURY When Within 1-2 days [facility]: [address] [facility] [place], [place] [address]- [phone] Follow Up with MD PAULA QUEZADA MD When Within 5 to 7 days Where: [address] [facility] [place] [address] [phone] Follow Up with PAVAN DALY DO, Surgery When Only if needed Why: Please call with any questions or concerns. Will facilitate follow-up with [facility]. Where: [address] [facility] [address] [place] [address]- [phone] Follow Up Appointments No qualifying data available. [...] SIMON MARK MD on 01/15/2023 02:27 PM [facility] HospitalRekgkfog56-50-8173 Surgery Hospital Progress note Date of Service [...] by ARACELI WONG on 01/15/2023 10:55 AM [facility] HospitalAxvjeqiu58-76-0560 Note Date of Service 01/14/2023 Chief Complaint Fever jaundice Subjective 62-year-old male PMH HTN, HLD, history of DVT on anticoagulation, history of partial cholecystectomy with ongoing episodes of bile leakage requiring multiple biliary stents. Patient presented earliertoday as a transfer from [place] with severe epigastric/abdominal pain nausea, vomiting of [...] SIMON MARK MD on 01/15/2023 08:56 AM [facility] HospitalUtdwkyrq85-55-7535 Anesthesiology Consult note Patient: GUSTAVO CERDA Age: [...] DAMIAN PRASAD DO on 01/14/2023 08:34 PM [facility] HospitalRsknfjui72-48-3870 Anesthesiology Consult note Patient: GUSTAVO CERDA Age: [...] Problem list: Medical Arthritis / SNOMED CT 6668326 / Confirmed Bile duct leak / SNOMED CT 198243476 / Confirmed High blood pressure / SNOMED CT 77878093 / Confirmed Pancreatitis / SNOMED CT 209185685 / Confirmed Sleep apnea / SNOMED CT 833649097 / Confirmed, Active Problems (14) Abdominal pain Apnea Arthritis Bile duct leak BiPAP (biphasic positive airway pressure) dependence DVT of lower limb, acute Glasses High blood pressure Horseshoe kidney CONNER (nonalcoholic steatohepatitis) Pancreatitis Sleep apnea Tobacco use Urinary tract infection Histories Past Medical History: No active or resolved past medical history items have been selected or recorded. Procedure history: Biliary stent ([id number]) in the month of 05/2022 at 61 Years. Comments: 08/17/2022 9:47 NURIA Grossman RN Stephanie D Replaced ERCP ([id number]) in the month of 03/2022 at 61 Years. Cholecystectomy (11679043) in 2021 at 61 Years. Liver ([id number]) in 1990 at 30 Years. Comments: 03/31/2022 14:35 Arianne Hollins RN liver laceration Trauma ([id number]) in 1967 at 7 Years. Comments: 03/31/2022 14:34 Arianne Hollins RN as a child fell in [facility]- multiple surgeries Tonsillectomy and adenoidectomy (874317496). Colonoscopy (321507518). Rotator cuff repair ([id number]). Comments: 05/25/2022 10:14 HANNAH Wilkerson bilateral Arthroscopic trimming of meniscus (517762913). Comments: 05/25/2022 10:14 HANNAH Wilkerson right Social [...] from flowsheet : Measurements 01/14/2023 9:42 EDT [place] Body Weight 75 kg 01/14/2023 7:24 EDT [...] klebsiella bacteremia, positive on 01/10/23. Receiving zosyn. [place] Society of Anesthesiologists (ASA) physical status classification: [...] DAMIAN PRASAD DO on 01/14/2023 04:02 PM [facility] HospitalReugwbux62-31-7358 Note Date of Service 01/13/2023 Chief Complaint Abdominal pain jaundice Subjective 62-year-old male PMH HTN, HLD, history of DVT on anticoagulation, history of partial cholecystectomy with ongoing episodes of bile leakage requiring multiple biliary stents. Patient presented earliertoday as a transfer from [place] with severe epigastric/abdominal pain nausea, vomiting of [...] SIMON MARK MD on 01/13/2023 04:13 PM [facility] HospitalGvcmvwbt18-91-2116 Surgery Hospital Progress note Date of Service [...] by ARNEL LEE on 01/13/2023 12:44 PM [facility] HospitalBlpovwun23-54-7104 Surgery Hospital Progress note Date of Service [...] by ARNEL LEE on 01/13/2023 12:44 PM [facility] HospitalYhqmmgtj38-27-2148 Note. MICRO - Microbiology PROCEDURE: Urine Culture [...] Locations *1: This test was performed at: [facility], [address] [place] [address], [facility] , [facility]01-13-2023 Note. MICRO - Microbiology PROCEDURE: Blood Culture (bacterial) [*1] SOURCE: Blood BODY SITE: COLLECTED DATE/TIME: 01/10/2023 20:01 EDT RECEIVED DATE/TIME: 01/11/2023 03:49 EDT START DATE/TIME: 01/11/2023 03:49 EDT FREE TEXT SOURCE: FINAL REPORTS Final Report [] Verified Date/Time/Personnel: 01/13/2023 07:45 EDT Klebsiella pneumoniae Isolated from anaerobe bottle only. Refer to previous culture for susceptibility. [id number] collected on 01/10/23 PRELIMINARY REPORTS Preliminary Report [...] Locations *1: This test was performed at: [facility], [address] [place] [address], [id number] , [facility]01-13-2023 Note ORIGINAL HISTORY: Obstructive jaundice COMPARISON: MR [...] Sign Date: 01/13/2023 9:24:44 AM Ordering Provider: [facility]05-04-2023 Note ORIGINAL HISTORY: Obstructive jaundice COMPARISON: MR [...] Sign Date: 01/13/2023 9:24:44 AM Ordering Provider: [facility]05-04-2023 Anesthesiology Consult note Patient: GUSTAVO CERDA Age: [...] JESUSITA DORANTES MD on 01/13/2023 09:18 AM [facility] HospitalTebfkwll60-42-8797 Note Date of Service 01/13/2023 Procedure Name [...] of small amount of sludge. A 10 Slovak 7 cm biliary stent was introduced with [...] small amount of sludge. 9. A 10 Slovak 7 cm biliary stent was introduced with [...] PAULA QUEZADA MD on 01/13/2023 09:02 AM [facility] HospitalOhcjofsq68-54-0925 Note Date of Service 01/12/2023 Chief Complaint Abdominal pain jaundice Subjective 62-year-old male PMH HTN, HLD, history of DVT on anticoagulation, history of partial cholecystectomy with ongoing episodes of bile leakage requiring multiple biliary stents. Patient presented earliertoday as a transfer from [place] with severe epigastric/abdominal pain nausea, vomiting of [...] SIMON MARK MD on 01/12/2023 06:09 PM [facility] HospitalIybdzsyx54-11-3787 Surgery Hospital Progress note Date of Service [...] by ARNEL LEE on 01/12/2023 12:28 PM [facility] HospitalEqqyaajk12-92-7982 Surgery Hospital Progress note Date of Service [...] by ARNEL LEE on 01/12/2023 12:28 PM [facility] HospitalMcamylwa70-27-8066 Gastroenterology Progress note Date of Service January 12, 2023 Chief Complaint Retained cystic duct with dilation and suspected stones, recurrent biliary obstruction Subjective Tony Cerda is a 62-year-old male [...] by JULIANA MOSQUEDA on 01/12/2023 11:29 AM [facility] HospitalIjayahqy93-60-8652 Surgery Consult note Date of Service 01/11/2023 Reason for Consultation Concern for stump cholecystitis Referring Physician Dr. Armenta History of Present Illness This is a split shared visit between myself and Dr. Daly This patient is a 62-year-old male who [facility] on [facility]09[facility]2023 with complaints of right upper quadrant abdominal pain that began the evening prior. He complained of associated nausea without emesis. Of note, the patient is a status post laparoscopic converted to open partial cholecystectomy in February of [address] Alex at [facility] and postoperatively has had multiple ERCPs secondary to cystic duct leak as well as common bile duct leak. While in the [place] emergency department, an ultrasound of the abdomen [...] bile duct leak who presented to the [place] emergency department on 01/09/2023 with complaints of right upper quadrant abdominal pain with associated nausea. He was transferred [facility] and was admitted to the regular [...] by ARNEL LEE on 01/11/2023 12:24 PM [facility] HospitalHelpvznc07-73-1352 Surgery Consult note Date of Service 01/11/2023 Reason for Consultation Concern for stump cholecystitis Referring Physician Dr. Armenta History of Present Illness This is a split shared visit between myself and Dr. Daly This patient is a 62-year-old male who was transferred from [facility] emergency departmentafter he presented there on 01/09/2023 with complaints of right upper quadrant abdominal pain that began the evening prior. He complained of associated nausea without emesis. Of note, the patient is a status post laparoscopic converted to open partial cholecystectomy in February of [address] Alex at [facility] and postoperatively has had multiple ERCPs secondary to cystic duct leak as well as common bile duct leak. While in the [place] emergency department, an ultrasound of the abdomen [...] bile duct leak who presented to the [place] emergency department on 01/09/2023 with complaints of right upper quadrant abdominal pain with associated nausea. He was [facility] and was admitted to the regular [...] by ARNEL LEE on 01/11/2023 12:24 PM [facility] HospitalZsbamzfr66-68-3933 Gastroenterology Progress note Date of Service January 11, 2023 Chief Complaint Right upper quadrant pain with elevated LFTs. History of a partial cholecystectomy due to extensive adhesions with cystic duct leak requiring repeat ERCPs [...] by JULIANA MOSQUEDA on 01/12/2023 11:19 AM [facility] HospitalFrcdypxe04-42-9753 Note ORIGINAL EXAMINATION: MRCP 01/10/2023 2:34 pm [...] Date: 01/10/2023 4:30:41 PM Ordering Provider: JUL[facility]NA [facility]05-01-2023 Gastroenterology Consult note Date of Service January 10, 2023 Reason for Consultation Choledocholithiasis, recurrent. History of cystic biliary leak requiring multiple ERCPs with bile duct stents. Referring Physician Lilly Delgado MD History of Present Illness Tony Cerda is a 62-year-old male admitted through [place] emergency department with sudden onset of right [...] leak with stent removed and a 10 Slovak 5 cm stent placed 04/01/[address] Josue Weaver noted common bile duct 12 cm with persistent leak and 4 black stones removed. 7 Slovak 7 cm stent placed Last colonoscopy was [...] stones removed with cystic leak and 10 Slovak 7 cm stent placed. Her function studies [...] by JULIANA MOSQUEDA on 01/10/2023 09:50 AM [facility] HospitalJvpjahqg84-23-5257 Note ORIGINAL EXAMINATION: MRCP 01/10/2023 2:34 pm [...] Sign Date: 01/10/2023 4:30:41 PM Ordering Provider: [facility]05-01-2023 Evaluation + Plan note Extracted from: Title:Clinical Document Author:LILLY DELGADO MD Date:01/10/[address] [facility] Medicine Hospitalist History and Physical Date of Admission: 01/10/2023 Chief complaint: Abdominal pain History of present illness: History is taken from talking with the emergency room physician in [place] as well as talking with the patient. Patient has a past medical history of DVT, hypertension, hyperlipidemia, cholecystectomy with ongoing episodes of bile leak requiring multiple biliary stents. Patient reports that he had a cholecystectomy at [facility] in February 2022. Subsequently he has had [...] Rate18(JANUARY 10 03:56)18(JANUARY 10 03:56)18(JANUARY 10 03:56) IBI847(JANUARY 10 03:56)101(JANUARY 10 03:56)101(JANUARY 10 03:56) DBPC [...] HPI Assessment and plan: Patient presents from [place] emergency department on 01/10/2023 due to having [...] parameters Prophylaxis SCDs CODE STATUS full code [facility] 05-01-2023 Note ORIGINAL EXAMINATION: XR OR [...] Sign Date: 01/10/2023 1:58:20 PM Ordering Provider: [facility]05-01-2023 Note ORIGINAL EXAMINATION: XR OR FOREIGN BODY, 1 x-ray view of the orbits 01/10/2023 1:55 pm COMPARISON: None. HISTORY: ORDERING SYSTEM PROVIDED HISTORY: Reason for Exam: r/o metal shavings FINDINGS: No metallic intraorbital foreign body. Examination is degraded by motion artifact. Included paranasal sinuses and mastoid air cells are grossly clear. IMPRESSION: No metallic intraorbital foreign body. Interpreted by: Christelel Casillas MD Preliminary Report By: Christelle Casillas MD Electronically signed By Christelle Casillas MD Dictated Date: 01/10/2023 1:57:15 PM Prelim Date: 01/10/2023 1:58:20 PM Sign Date: 01/10/2023 1:58:20 PM Ordering Provider: [facility]05-01-2023 Gastroenterology Consult note Date of Service January 10, 2023 Reason for Consultation Choledocholithiasis, recurrent. History of cystic biliary leak requiring multiple ERCPs with bile duct stents. Referring Physician Lilly Delgado MD History of Present Illness Tony Cerda is a 62-year-old male admitted through [place] emergency department with sudden onset of right [...] leak with stent removed and a 10 Slovak 5 cm stent placed 04/01/[address] Josue Weaver noted common bile duct 12 cm with persistent leak and 4 black stones removed. 7 Slovak 7 cm stent placed Last colonoscopy was [...] nausea. This is improved somewhat from yesterday. No heartburn or reflux. No difficulty chewing or swallowing. No lower abdominal pain or stool change.Genitourinary: Voiding. Musculoskeletal: Back pain. Neurological: Headaches. No [...] stones removed with cystic leak and 10 Slovak 7 cm stent placed. Her function studies [...] by JULIANA MOSQUEDA on 01/10/2023 09:50 AM [facility] HospitalEtfbdhor70-12-5775 History and physical note [facility] Hospitalist History and Physical Date of Admission: 01/10/2023 Chief complaint: Abdominal pain History of present illness: History is taken from talking with the emergency room physician in [place] as well as talking with the patient. Patient has a past medical history of DVT, hypertension, hyperlipidemia, cholecystectomy with ongoing episodes of bile leak requiring multiple biliary stents. Patient reports that he had a cholecystectomy at [facility] in February 2022. Subsequently he hashad persistent [...] Rate18(JANUARY 10 03:56)18(JANUARY 10 03:56)18(JANUARY 10 03:56) [id number](JANUARY 10 03:56)101(JANUARY 10 03:56)101(JANUARY 10 03:56) DBPC [...] HPI Assessment and plan: Patient presents from [place] emergency department on 01/10/2023 due to having [...] LILLY DELGADO MD on 01/10/2023 05:36 AM [facility] HospitalVblchmou70-57-9543 Note ORIGINAL EXAMINATION: RIGHT UPPER QUADRANT ULTRASOUND [...] Date: 01/10/2023 1:05:30 AM Ordering Provider: LATOYA [facility]05-01-2023 Note ORIGINAL EXAMINATION: RIGHT UPPER QUADRANT ULTRASOUND [...] Date: 01/10/2023 1:05:30 AM [facility] Note ORIGINAL EXAMINATION: CT OF THE ABDOMEN [...] Date: 01/10/2023 12:06:08 AM [facility]ing [facility] Note ORIGINAL EXAMINATION: CT OF THE ABDOMEN [...] Pineda Candelario MD Preliminary Report By: Pineda Cadnelario MD Electronically signed By Pineda Candelario MD Dictated Date: 01/09/2023 11:58:47 PM Prelim Date: 01/10/2023 12:06:08 AM Sign Date: 01/10/2023 12:06:08 AM [facility]ing [facility] [id number] Hospital Discharge instructions Patient Education 08/24/2022 10:19:34 1-[facility] Discharge Instructions Template (06/2018) (Custom) [facility] SAME DAY SURGERY DISCHARGE INSTRUCTIONS PLEASE [...] us better serve our patients. Form: 1522 (37314) R: 12/19 Follow Up Care 07/01/2022 08:06:33 With:CORNELIO WEAVER MD Address: [facility] Manny Melgar B [facility] [place] [address] [phone] When: Unknown Comments:Follow-up as scheduled [facility] 12-13-2022 Summary of episode note Discharge Instructions Thank you for allowing [facility] to assist you with your healthcare needs. The following is importantdischarge information regarding your hospital visit. What to do next Follow Up Appointments Follow Up with CORNELIO WEAVER MD When Why: Follow-up as scheduled Where: [facility] Manny Melgar [facility] [place] [address]- [phone] Allergies NKA Medications Please ask your primary [...] medication providers or retail pharmacies. Education Materials [place] SAME DAY SURGERY DISCHARGE INSTRUCTIONS PLEASE FOLLOW [...] us better serve our patients. Form: 1522 (43989) R: 12/19 Additional Information VACCINATE! IT SAVES LIVES! Members of the community who have not yet received the COVID-19 vaccine and would like to receive it can visit one of [facility] vaccine clinics. There are many vaccine clinic locations within the [facility]. For locations and available times, please visit [email or web address] It is important to note that some COVID mobile vaccine clinics are held outdoors and may be canceled in rainy or stormy conditions. To learn more about pediatric vaccinations (ages 5-11), we invite you to visit the [facility] webpage. [email or web address]/[email or web address]-Emegygjgjti-Vswupneroo-[email or web address] [email or web address].htmlTo learn more about the COVID-19 vaccine, we invite you to visit the [facility] website for a list of frequently asked questions. [email or web address]-[email or web address] _[email or web address]-Questions.pdf [facility] [employer] Patient Portal Access Instructions: Stay connected with your healthcare team and access your personal medical information anytime with the [employer] Patient Portal.If you would like a full copy of your medical records, please contact the [facility] Medical Records Department, Tuesday through Tuesday between 8a.m. and 4:30p.m. Please follow the directions below to access the portal: 1.Access the email account you provided upon registration to the [facility].2.Look for an invitation email from [facility].3.Open the email and access the invitation link: Accept Invitation to [employer]4.Fill in the required montero to create your account. Sign into [email or web address] with your username and password that you [...] you will allow to register on the [employer] Patient Portal for access to your information. You can also access the [employer] Patient Portal on the Segment osbaldo. Simply click on Health Records under [employer] and then click on the [employer] logo. HOW TO SAFELY DISPOSE OF PRESCRIPTION [...] Call your local pharmacy or go to http://AMT ([employer]In[employer]/0S2Xy3a to find one close to you.3.Make use of household items: Use cat litter or old coffee grounds to dispose medications if other options arenot available. Mix your drugs with these household products, seal them in an airtight container andthrow it into the garbage. Call [facility]: [phone] to be sure your drugs can be [...] aware that I should contact my doctor. Patient/Rn Recruitment Signature: Date/Time: Relationship to Patient: Witness Name/Signature: Date/Time: [facility] HospitalIcvasvvl71-05-1704 Anesthesiology Consult note Patient: GUSTAVO CERDA Age: [...] MARRY BAUMAN MD on 08/24/2022 09:45 AM [facility] HospitalGzjhpjho30-64-2832 Anesthesiology Consult note Patient: GUSTAVO CERDA Age: [...] Problem list: Medical Arthritis / SNOMED CT 1728699 / Confirmed Bile duct leak / SNOMED CT 539385902 / Confirmed High blood pressure / SNOMED CT 10447949 / Confirmed Pancreatitis / SNOMED CT 767119337 / Confirmed Sleep apnea / SNOMED CT 285104092 / Confirmed, Active Problems (14) Abdominal pain Apnea Arthritis Bile duct leak BiPAP (biphasic positive airway pressure) dependence DVT of lower limb, acute Glasses High blood pressure Horseshoe kidney CONNER (nonalcoholic steatohepatitis) Pancreatitis Sleep apnea Tobacco use Urinary tract infection Histories Past Medical History: No active or resolved past medical history items have been selected or recorded. Procedure history: Biliary stent ([id number]) in the month of 05/2022 at 61 Years. Comments: 08/17/2022 9:47 HANNAH Fontana Replaced ERCP ([id number]) in the month of 03/2022 at 61 Years. Cholecystectomy (81018608) in 2021 at 61 Years. Liver (23730476) in 1990 at 30 Years. Comments: 03/31/2022 14:35 Arianne Hollins RN liver laceration Trauma ([id number]) in 1967 at 7 Years. Comments: 03/31/2022 14:34 Arianne Hollins RN as a child fell in [employer]- multiple surgeries Tonsillectomy and adenoidectomy (367202701). Colonoscopy (743875045). Rotator cuff repair ([id number]). Comments: 05/25/2022 10:14 HANNAH Wilkerson bilateral Arthroscopic trimming of meniscus (024718300). Comments: 05/25/2022 10:14 HANNAH Wilkerson right Social History Social & Psychosocial Habits Alcohol 03/31/2022 Use: Never 2Risk Assessment: Denies Alcohol Use Substance Abuse 03/31/2022 Use: Never 2Risk Assessment: Denies Substance Abuse Tobacco 03/31/2022 Tobacco Use: Never (less than 100 in l, Smoker, current status un 05/25/2022isk Assessment: Denies Tobacco Use Home/Environment 05/25/2022 Domestic Concerns Denies Living situation: Home/Independent Current Home Treatments bipap Spouse Name Keisha Marital Status of Patient if Patient Independent Adult: 06/01/[address]: Yes Nutrition/Health 03/31/2022 Type of diet: Regular Appetite Good Eating Difficulties None . Physical Examination Vital Signs(last 24 hrs) Last Charted Resp Rate 16 br/min (AUG 24 07:34) JAZ579 mmHg (AUG 24 07:34) DBP76 mmHg (AUG 24 07:34) Measurements from flowsheet : Measurements 08/24/2022 7:34 EST Height 177.8 cm Height in inches 70 inch(es) Admission Weight 156.9 kg Weight Lbs 345.2 lb Weight Method Actual [place] Body Weight 73.00 kg Type of Scale Used Bed scale Admission Body Mass Index 49.63 m2 General: Alert and oriented. Airway: Mallampati classification: III (soft palate, base of uvula visible). Dentition Evaluation: Intact. Respiratory: Lungs are clear to auscultation, Respirations are non-labored. Cardiovascular: Normal rate, Regular rhythm. Heart Sounds: Normal. Neurologic: Alert, Oriented. Review / Management Documentation reviewed: Current records. Assessment and Plan [place] Society of Anesthesiologists (ASA) physical status classification: Class III. Anesthetic Preoperative Plan Premedication: intravenous. Anesthetic technique: General. Induction: intravenously. Maintenance airway: Oral endotracheal tube. Postoperative pain management: Per surgeon. Informed consent: signed by patient. Notes: Morbid Obesity. Digitally Signed by CHAVEZ SINCLAIR MD on 08/24/2022 08:25 AM [facility] HospitalOuqmnnik07-17-4963 Hospital Discharge instructions Patient Education 06/01/2022 11:01:22 1-[facility] Discharge Instructions Template (06/2018)(CUSTOM) [place] SAME DAY SURGERY DISCHARGE INSTRUCTIONS PLEASE FOLLOW [...] pushing or straining. xOther: instructions per dr weavre BATHING/SHOWERING: ___ Sponge bathe until office visit. [...] us better serve our patients. Form: 1522 (84351) R: 12/19 Follow Up Care 04/16/2022 10:44:37 With:CORNELIO WEAVER MD Address: [facility]anny [facility]gar [facility], [place] [address] [phone] When: Unknown [facility] 09-20-2022 Summary of episode note Discharge Instructions Thank you for allowing [facility] to assist you with your healthcare needs. The following is importantdischarge information regarding your hospital visit. What to do next Follow Up Appointments Follow Up with CORNELIO WEAVER MD When Where: [facility]0 Manny Shultz [facility], [place] [address]- [phone] The Following Activity and Diet Have Been [...] us better serve our patients. Form: 1522 (03128) R: 12/19 Additional Information VACCINATE! IT SAVES LIVES! Members of the community who have not yet received the COVID-19 vaccine and would like to receive it can visit one of [facility] vaccine clinics. There are many vaccine clinic locations within the [facility]. For locations and available times, please visit https://[email or web address]/. It is important to note that some COVID mobile vaccine clinics are held outdoors and may be canceled in rainy or stormy conditions. To learn more about pediatric vaccinations (ages 5-11), we invite you to visit the [facility] webpage. https://www.ak4Cable [email or web address].org/pages/8144-Ptnlg-Zjqriwbwrkp-Vtdgmussyd-Zxdaj-Xig stions.htmlTo learn more about the COVID-19 vaccine, we invite you to visit the [facility] website for a list of frequently asked questions. [email or web address]/[email or web address]-[email or web address]-Widggozcws _Asked-Questions.pdf [facility] Patient Portal Access Instructions: Stay connected with your healthcare team and access your personal medical information anytime with the [facility] Patient Portal.If you would like a full copy of your medical records, please contact the [facility] Medical Records Department, Tuesday through Tuesday between 8a.m. and 4:30p.m. Please follow the directions below to access the portal: 1.Access the email account you provided upon registration to the [facility].2.Look for an invitation email from [facility].3.Open the email and access the invitation link: Accept Invitation to [facility]4.Fill in the required montero to create your account. Sign into [email or web address] with your username and password that you [...] you will allow to register on the [facility] Patient Portal for access to your information. You can also access the [facility] OneChart Patient Portal on the Appscio. Simply click on Health Records under [employer] and then click on the Seva [employer] logo. HOW TO SAFELY DISPOSE OF PRESCRIPTION [...] Call your local pharmacy or go to http://AMT (A[employer]).Inception Sciences/0M7Pi1d to find one close to you.3.Make use of household items: Use cat litter or old coffee grounds to dispose medications if other options arenot available. Mix your drugs with these household products, seal them in an airtight container andthrow it into the garbage. Call [facility]: [phone] to be sure your drugs can be [...] aware that I should contact my doctor. Patient/Rn Recruitment Signature: Date/Time: Relationship to Patient: Witness Name/Signature: Date/Time: [facility] HospitalUgnnfdxr24-94-0471 Anesthesiology Consult note Patient: GUSTAVO CERDA Age: [...] LOPEZ JANE MD on 06/01/2022 10:41 AM [facility] HospitalGkotdlzq79-20-6441 Anesthesiology Consult note Patient: GUSTAVO CERDA Age: [...] Problem list: Medical Pancreatitis / SNOMED CT 691072201 / Confirmed Bile duct leak / SNOMED CT 538118147 / Confirmed High blood pressure / SNOMED CT 72511551 / Confirmed Sleep apnea / SNOMED CT 588710999 / Confirmed Arthritis / SNOMED CT 3206357 / Confirmed, Active Problems (14) Abdominal pain [...] Cancer of colon Father Procedure history: Cholecystectomy (63842440) in 2021 at 61 Years. ERCP (7764744543) in 2021 at 61 Years. Liver (39441396) in 1990 at 30 Years. Comments: 03/31/2022 14:35 Arianne Hollins RN liver laceration Trauma (6608277983) in 1967 at 7 Years. Comments: 03/31/2022 14:34 Arianne Hollins RN as a child fell in [facility]- multiple surgeries Tonsillectomy and adenoidectomy (184122937). Colonoscopy (638258339). Rotator cuff repair (474504454). Comments: 05/25/2022 10:14 HANNAH Wilkerson bilateral Arthroscopic trimming of meniscus (890888068). Comments: 05/25/2022 10:14 HANNAH Wilkerson right Social [...] Weight Lbs 340.6 lb Weight Method Actual [place] Body Weight 70.74 kg Type of Scale [...] Weight Lbs 340.6 lb Weight Method Actual [place] Body Weight 70.74 kg Type of Scale [...] no difficulties Skin Temperature Warm Skin Description [place], Dry Skin Integrity Intact Neurological Symptoms Patient [...] Method Explanation, Printed materials Preferred Written Language Brazilian Family/Caregiver Prefer Written Language Brazilian Preferred Spoken Language Brazilian Family/Caregiver Prefer Spoken Language Brazilian General Infection Prevention Strategies Hand hygiene Surgical [...] No smoking after midnight, No jewelry, Responsible Democrat, Aware of surgery location, Patient instructed to take ordered medications SN - Preprocedure Comments Verbalizes/Nonverbally indicates understanding, Other: Spoke with pt's -- Keisha. Instructed for pt to bring in all home meds the am of OR. Admission Note-Nursing Date\Time Correction . Assessment and Plan [place] Society of Anesthesiologists (ASA) physical status classification: [...] by KAYLEY REBOLLEDO on 06/01/2022 09:28 AM [facility] HospitalGzuixqbm46-42-8963 NoteHNO ID: [id number] Author: Kole Mancia MD Service: ? Author [...] back up with Dr. Alex and the barrel dedenting machine operator on an as-needed basis.[facility]09-13-2022 History of Present illness Narrative* Kole [...] back up with Dr. Alex and the barrel dedenting machine operator on an as-needed basis. documented in this encounterLake[facility]09-13-2022 Miscellaneous Notes* Telephone Encounter - Jeannie Marquez RN - 05/25/2022 12:37 PM EDT Gustavo called to report the stitch holding his drain came loose. He thinks the drain is coming outa bit. He stated there is red in the drain tubing. Dr. Mancia agreed to see the patient today 05/25 at 2:45 p.m. documented in this encounterLakehealth [facility]point [facility] Center09-08-2022 NoteHNO ID: [id number] Author: RT David(R) Service: ? Author Type: Tax Assistant Type: Progress Notes Filed: 05/20/2022 1:39 PM [...] RADIOLOGY DEPARTMENT: CT; Exam(s) Completed: Abdomen SIGNATURE: REJI Valles) PATIENT NAME: Gustavo Cerda DATE: May 20, 2022 TIME: 1:39 [facility]09-08-2022 History of Present illness Narrative* ALFONZO HernandezR) - 05/20/2022 9:20 AM EDT Radiology Service [...] 2022 TIME: 1:39 PM documented in this encounterLakehealth [facility]point [facility] Center08-17-2022 Miscellaneous Notes* Telephone Encounter - Renetta Alex MD - 04/28/2022 5:03 PM EDT Checking on patient He states that about 40 ml/day He is scheduled for removal of CBD drainage tube later this month. I will contact him next week to check status. documented in this encounterLakehealth [facility] Center08-08-2022 Miscellaneous Notes* Telephone Encounter - Renetta Alex MD - 04/19/2022 12:11 PM EDT [...] week. Patient acknowledges above. documented in this encounterLakehealth [facility]point [facility] Center08-01-2022 Miscellaneous Notes* Telephone Encounter - Renetta Alex MD - 04/12/2022 10:50 AM EDT Spoke to patient to check on his status. He states that about 100 cc/day is still emanating from the catheter. He denies fevers. He denies abdominal pain. Will continue observation documented in this encounterLakehealth [facility]point [facility] Center07-25-2022 Miscellaneous Notes* Telephone Encounter - Renetta Alex MD - 04/05/2022 11:08 AM EDT Patient notes intermittent pain with drain in place. Notes output is still full over a 24 hour period. Will check on patient on Tuesday. Patient can shower, avoid getting drain overlying wet - cover with towel. Patient acknowledges above. documented in this encounterLakehealth [facility]point [facility] Center07-22-2022 Miscellaneous Notes* Telephone Encounter - Kenzie Echols LPN - 04/02/2022 11:03 AM EDT Patient's Keisha called, patient had ERCP done 04/01/22 at [facility], Patient has complaint of mid-upper abdomen pain since procedure last less then 1 minute, pain scale 3-4, had it twice and woke him out of a sleep. States also had same pain once prior to the procedure yesterday. Fax a request to [facility] for ERCP records to be faxed and images pushed. Patient asking also about drain removal from abdomen. Please advise. documented in this encounterLakehealth [facility]point [facility] Center07-21-2022 Hospital Discharge instructions Patient Education 04/01/2022 09:59:30 1-[facility] Discharge Instructions Template (06/2018) (CUSTOM) [place] SAME DAY SURGERY DISCHARGE INSTRUCTIONS PLEASE FOLLOW [...] us better serve our patients. Form: 1522 (18101) R: 12/1904/01/2022 09:59:19 Endoscopic Retrograde Cholangiopancreatogram, Care [...] (fatigue). Follow these instructions at home: Take rgkr-vld-rkscjle and prescription medicines only as told by [...] 06/19/2014 Document Revised: 08/11/2018 Document Reviewed: 07/18/2017 Nuenz Patient Education 2020 Gig[employer]. Follow Up Care 03/30/2022 07:38:29 With:CORNELIO WEAVER MD Address: [address] [place] [address] Dr JOVITA Melgar [facility], [place] [address]- [phone] When: Unknown [facility] 07-21-2022 Note ORIGINAL EXAMINATION: SPOT IMAGES [...] 04/01/2022 11:13:38 AM Ordering Provider: CORNELIO WEAVER [facility] HospitalJqtvfsac08-64-8497 Anesthesiology Consult note Patient: ABIODUN CERDA Age: [...] DAMIAN PRASAD DO on 04/01/2022 11:09 AM [facility] HospitalXuvppura55-00-1264 Summary of episode note Discharge Instructions Thank you for allowing [facility] to assist you with your healthcare needs. The following is importantdischarge information regarding your hospital visit. What to do next Follow Up Appointments Follow Up with CORNELIO WEAVER MD When Where: [address] [facility], [place] [address]- [phone] The Following Activity and Diet Have Been [...] us better serve our patients. Form: 1522 (31320) R: 12/19 Endoscopic Retrograde Cholangiopancreatogram, Care After [...] (fatigue). Follow these instructions at home: Take hgda-zxp-tjhdsqm and prescription medicines only as told by [...] 06/19/2014 Document Revised: 08/11/2018 Document Reviewed: 07/18/2017 Nuenz Patient Education 2020 [employer]. Additional Information VACCINATE! IT SAVES LIVES! Members of the community who have not yet received the COVID-19 vaccine and would like to receive it can visit one of [facility] vaccine clinics. There are many vaccine clinic locations within the [facility]. For locations and available times, please visit https://[email or web address].gov/. It is important to note that some COVID mobile vaccine clinics are held outdoors and may be canceled in rainy or stormy conditions. To learn more about pediatric vaccinations (ages 5-11), we invite you to visit the [facility] webpage. https://www.[facility].org/pages/5880-Fzidg-Rybalkvkrzd-Mingjxabgl-Uzclt-Jht stions.htmlTo learn more about the COVID-19 vaccine, we invite you to visit the [employer] website for a list of frequently asked questions. [email or web address] _Asked-Questions.pdf [facility] [employer] Patient Portal Access Instructions: Stay connected with your healthcare team and access your personal medical information anytime with the [facility] Patient Portal.If you would like a full copy of your medical records, please contact the [facility] Medical Records Department, Tuesday through Tuesday between 8a.m. and 4:30p.m. Please follow the directions below to access the portal: 1.Access the email account you provided upon registration to the [facility].2.Look for an invitation email from [facility].3.Open the email and access the invitation link: Accept Invitation to [facility]4.Fill in the required montero to create your account. Sign into [email or web address] with your username and password that you [...] you will allow to register on the [facility] Patient Portal for access to your information. You can also access the [facility] Patient Portal on the Segment osbaldo. Simply click on Health Records under AlgorithmiaData and then click on the Seva Coffee logo. HOW TO SAFELY DISPOSE OF PRESCRIPTION [...] Call your local pharmacy or go to http://bit.Inception Sciences/8H1Ay5i to find one close to you.3.Make use of household items: Use cat litter or old coffee grounds to dispose medications if other options arenot available. Mix your drugs with these household products, seal them in an airtight container andthrow it into the garbage. Call [facility]: [phone] to be sure your drugs can be [...] that I should contact my d octor. Patient/Rn Recruitment Signature: Date/Time: Relationship to Patient: Witness Name/Signature: Date/Time: [facility] [id number] Note ORIGINAL EXAMINATION: SPOT IMAGES FROM AN [...] Sign Date: 04/01/2022 11:13:38 AM Ordering Provider: [facility]07-21-2022 Anesthesiology Consult note Patient: ABIODUN CERDA Age: [...] Medical Bile duct leak / SNOMED CT 388513898 / Confirmed High blood pressure / SNOMED CT 20805333 / Confirmed Pancreatitis / SNOMED CT 611107211 / Confirmed Sleep apnea / SNOMED CT 840539740 / Confirmed, Active Problems (12) Abdominal pain Apnea Bile duct leak DVT of lower limb, acute Glasses High blood pressure Horseshoe kidney CONNER (nonalcoholic steatohepatitis) Pancreatitis Sleep apnea Tobacco use Urinary tract infection Histories Past Medical History: No active or resolved past medical history items have been selected or recorded. Procedure history: Cholecystectomy (00305173) in 2021 at 61 Years. ERCP (2390023881) in 2021 at 61 Years. Liver (42263876) in 1990 at 30 Years. Comments: 03/31/2022 14:35 Arianne Hollins RN liver laceration Trauma (3955380870) in 1967 at 7 Years. Comments: 03/31/2022 14:34 Arianne Hollins RN as a child fell in [facility]- multiple surgeries Rotator cuff (87536428). Comments: 03/31/2022 14:36 Arianne Hollins RN bilat Meniscus (5018035485). Comments: 03/31/2022 14:36 Arianne Hollins RN knee right knee Tonsillectomy and adenoidectomy (928380699). Social History Social & Psychosocial Habits Alcohol [...] Admission Weight 154.1 kg Weight Method Actual [place] Body Weight 71.37 kg General: Alert and [...] Documentation reviewed: Current records. Assessment and Plan [place] Society of Anesthesiologists (ASA) physical status classification: Class III. Anesthetic Preoperative Plan Premedication: intravenous. Anesthetic technique: General. Induction: intravenously. Maintenance airway: Oral endotracheal tube. Postoperative pain management: Per surgeon. Risks discussed: nausea, vomiting, headache, sore throat, dental injury, hypotension, allergic reaction, serious complications. Informed consent: signed by patient. Digitally Signed by JESUSITA DORANTES MD on 04/01/2022 07:47 AM [facility] HospitalHiioazbr79-32-0670 Miscellaneous Notes* Telephone Encounter - Yong Land RN - 03/29/2022 10:08 AM EDT Images from the original note were not included. Renetta Alex MD [facility] General Surgery Pool Please fax a referral to the following number: [facility] Request for ERCP with covered stent attention Cielo Need: demographics sheet Report of ERCP, operative report, CT scan, labs, H&P from [facility]. Thank you Above medical records faxed to [facility], Attn: Cielo at [phone]. Fax conformation sheet received. Yong Land RN documented in this encounterLakehealth [facility]point [facility] Center07-18-2022 Miscellaneous Notes* Telephone Encounter - Renetta Alex MD - 03/29/2022 9:08 AM EDT Spoke to patient. He still has increased output via bile drain. He will require another ERCP with covered stent. I will place calls for referral I have explained the above to the patient. He acknowledges above. documented in this encounterLakehealth [facility] Center07-12-2022 Miscellaneous Notes* Telephone Encounter - Renetta Alex MD - 03/23/2022 1:06 PM EDT Spoke to patient regarding plan with controlled bile leak, s/p ERCP with stent DIscussed with hepato/biliary surgeon - will plan continued observation for another week. If no improvement, will consider repeat ERCP with placement of covered stent. I have told patient that this is not available at [facility], thus he may have to go to [facility] for this procedure. I will call patient on Tuesday to check on his status. Patient acknowledges above. documented in this encounterLakehealth [facility]point Medical Center07-11-2022 NoteHNO ID: [id number] Author: Renetta Alex MD Service: ? Author Type: Physician Type: Progress Notes Filed: 03/22/2022 7:07 PM Note Text: FOLLOW UP VISIT NAME: Gustavo Cerda [facility] NO.: [id number] DATE OF SERVICE: 03/22/2022 : 1960 Gustavo [...] and ROS obtained by others. Renetta Alex, [facility]07-11-2022 History of Present illness Narrative* Renetta Alex MD - 03/22/2022 4:37 PM EDT FOLLOW UP VISIT NAME: Gustavo [facility] NO.: [id number] DATE OF SERVICE: 03/22/2022 : 1960 Gustavo [...] others. Renetta Alex MD documented in this encounterLakehealth [facility]point Medical Center06-29-2022 NoteHNO ID: [id number] Author: Renetta Alex MD Service: ? Author Type: Physician Type: Progress Notes Filed: 03/10/2022 7:18 PM Note Text: FOLLOW UP VISIT NAME: Gustavo [facility] NO.: [id number] DATE OF SERVICE: 03/10/2022 : 1960 REFERRING [...] the PFSH and ROS obtained by others. Rneetta Alex [facility]06-29-2022 History of Present illness Narrative* Renetta Alex MD - 03/10/2022 7:15 PM EDT FOLLOW UP VISIT NAME: Gustavo [facility] NO.: [id number] DATE OF SERVICE: 03/10/2022 : 1960 REFERRING [...] others. Renetta Alex MD documented in this encounterLakehealth Tripoint Medical Center06-29-2022 Nurse Note* Kenzie Echols LPN - 03/10/2022 3:10 PM EDT The abdomen was assessed and lamont were removed as ordered. Dressing was applied. (steri strips) Patient instructed on wound care and verbalized understanding. Kenzie Echols LPN documented in this encounterLakehealth Tripoint Medical Center06-23-2022 NoteHNO ID: [id number] Author: RT Qamar(R) Service: Nuclear Medicine Author [...] 14:22 PATIENT DISCHARGED TO: Ambulatory patient, left [place] department area. A Diagnostic radioactive procedure has taken place, with no further precautions necessary other than routine body substance precautions. More information regarding radiation safety can be found using this link: [email or web address]/Rad%20Protection %20-%20Diagnostic%20Nuclear%20Medicine%20Procedures.pdf SIGNATURE: RT Qamar(R) PATIENT NAME: Gustavo Cerda DATE: March 04, 2022 TIME: 3:00 PM PAGER/CONTACT #:[facility]06-23-20[facility] History of Present illness Narrative* RT Qamar(R) - 03/04/2022 2:00 PM EDT RADIOLOGY SERVICE [...] radiation safety can be found usingthis link: [email or web address]%20Protection%20-% 20Diagnostic%20Nuclear%20Medicine%20Procedures.pdf SIGNATURE: RT Qamar(R) PATIENT NAME: Gustavo Cerda DATE: March 04, 2022 TIME: 3:00 PM PAGER/CONTACT #: documented in this encounterLakehealth Tripoint Medical Center06-23-2022 Miscellaneous Notes* Telephone Encounter - Yong Land RN - 03/04/2022 10:21 AM EDT Office visit note and request for consultation faxed to Dr. Leung's office. Fax conformation sheet received. Called Gustavo ([phone]) and advised that we had sent the requested information to Dr. Leung's office and they could call and schedule an appointment. Yong Land RN * Telephone Encounter - Elizabeth Manriquez - 03/03/2022 4:01 PM EDT Patients ,Stephanie called And stated that 's office needs a referral From in order to schedule an appointment. Please Call Stephanie when referral is completed. documented in this encounterLakehealth Tripoint Medical Center06-22-2022 Nurse Note* Kenzie Echols LPN - 03/03/2022 2:05 PM EDT The abdomen was assessed by Dr Alex and every other lamont were removed as ordered. Skin prep and steri strips applied. Patient instructed on wound care and verbalized understanding. Kenzie Echols LPN documented in this encounterLakehealth Tripoint Medical Center06-22-2022 Miscellaneous Notes* Telephone Encounter - Yong Land [...] week with Dr. Alex. documented in this encounterLakehealth Tripoint Medical Center06-16-2022 NoteHNO ID: [id number] Author: Renetta Alex MD Service: ? Author Type: Physician Type: Progress Notes Filed: 02/26/2022 12:33 PM Note Text: FOLLOW UP VISIT NAME: Gustavo Cerda [facility] NO.: [id number] DATE OF SERVICE: 02/24/2022 : 1960 REFERRING [...] follow-up with me as above. Renetta Alex [facility]06-16-2022 History of Present illness Narrative* Renetta Alex MD - 02/25/2022 10:13 AM EDT FOLLOW UP VISIT NAME: Gustavo Cerda CLINIC NO.: [id number] DATE OF SERVICE: 02/24/2022 : 1960 REFERRING [...] above. Renetta Alex MD documented in this encounterLakehealth Tripoint Medical CenterEvaluation + Plan note Future Appointments [facility] Evaluation note* Diagnosis Onset Date Resolution Status Acute cholecystitis acute [facility] Work Phone: Evaluation note* Diagnosis Onset Date Resolution Status Acute cholecystitis acute Status post cholecystectomy acute [facility] Work Phone: Evaluation note* Diagnosis Status post cholecystectomy- Primary Other acquired absence of organ Bile leak Unspecified disorder of biliary tract Morbid obesity (HCC) Morbid obesity [facility]* Diagnosis Status post cholecystectomy- Primary Other acquired absence of organ documented in this encounter [facility] note* Diagnosis Status post cholecystectomy Other acquired absence of organ documented in this encounter [facility] note* Diagnosis Status post cholecystectomy- Primary Other acquired absence of organ documented in this encounter [facility] note* Diagnosis Onset Date Resolution Status Acute cholecystitis acute Status post cholecystectomy acute Bile leak, postoperative acu te Bile leak noneactive [facility] Work Phone: Evaluation note* Diagnosis Onset Date Resolution Status Acute cholecystitis acute Status post cholecystectomy acute Bile leak, postoperative acu te Bile leak noneactive Acute pancreatitis acute [facility] Work Phone: Evaluation note* Diagnosis Onset Date Resolution Status Acute cholecystitis acute Status post cholecystectomy acute Bile leak, postoperative acu te Bile leak noneactive Acute pancreatitis acute Bile leak, postoperative acu te [facility] Work Phone: Evaluation note* Diagnosis Onset Date Resolution Status Acute cholecystitis acute Status post cholecystectomy acute Bile leak, postoperative acu te Bile leak noneactive Bile leak, postoperative acu te Acute pancreatitis resolved [facility] Work Phone: Evaluation note* Diagnosis Aftercare- Primary Unspecified aftercare Abnormal biliary HIDA scan Nonspecific abnormal results of other specified function study documented in this encounter [facility] note* Diagnosis Onset Date Resolution Status Morbid obesity acute Obstructive Sleep Apnea-Hypopnea Syndrome noneactive [facility] Work Phone: Evaluation noteNo assessment information available [facility] Work Phone: Evaluation note* Diagnosis Onset Date Resolution Status Morbid obesity chronic ABDULKADIR (obstructive sleep apnea) chronic [facility] Work Phone: Evaluation note* Diagnosis Onset Date Resolution Status Admit Date Encounter for screening colonoscopy acute April 18, 2025 2:44pm [facility] Work Phone: Hospital course Narrative No data available for this section [facility] Hospital Discharge instructions No data available for this section [facility] Hospital Discharge instructions Additional Instructions Please follow-up with your general surgeon as previously directed and take your home medications as previously directed as well. Please return [facility] the ER should [facility] Discharge instructions* Activity:activity as [...] to Face Encounter Completed: yesDate of Encounter: [id number] Necessity for Homecare (based on clinical findings): [...] for Referral: post-op appointmentScheduled Date/Time: 08-Mar-2023 10:30Location: [facility] [address] [facility] [address]Phone Number: [phone] [facility] LATOYA HERRERA MD: SIGN, VERIFY Event Display: EKG [ED AO] - CV Authored Date: [id number] [facility] Progress note No data available for this section [facility] Reason for referral (narrative)* Diagnostic Procedure Only (Routine) - Open Specialty Diagnoses / Procedures Referred By Contact Referred To Contact MOLECULAR & FUNCTIONAL IMAGING Diagnoses Status post cholecystectomy Procedures NM HEPATOBILIARY WO RX HEPATOBILIARY SYST IMAGING INCLUDING GALLBLADDER Renetta Alex MD [address] [place] [address] Molecular & Functional Imaging [address] [place] [address] Referral ID Status Reason Start Date Expiration Date V isits Requested Visits Authorized [id number] Open Auto-Generate d Referral 02/24/2022 03/26/2023 1 1 [facility] for referral (narrative)* Diagnostic Procedure Only (Routine) - Waiting for Online Response Specialty Diagnoses / Procedures Referred By Contact Referred To Contact MOLECULAR & FUNCTIONAL IMAGING Diagnoses Status post cholecystectomy Procedures NM HEPATOBILIARY WO RX HEPATOBILIARY SYST IMAGING INCLUDING GALLBLADDER Renetta Alex MD [address] [place] [address] Molecular & Functional Imaging [address] [id number] Referral ID Status Reason Start Date Expiration Date Visits Requested Visits Authorized [id number] Waiting for Online Response Auto-Genera francheska Referral Patient Cleared - Admin/Chair man/Directo r advise to proceed 02/24/2022 03/26/2023 1 1 [facility] ([facility]ative)No reason for referral information availableWH[facility] Work Phone: Reason for visit Narrative* Diagnostic Procedure Only (Routine) - Closed Specialty Diagnoses / Procedures Referred By Jaylene tena Referred To Contact Radiology / RADIO CT SCAN [facility] Diagnoses Perforation of gallbladder Biliary acute pancreatitis with infected necrosis CT ABD W IV AND ORAL, DX ,NHI TO FAX ORDER Procedures CT ABDOMEN W/CONTRAST CT WWO ABD1 400 Cornelio Weaver MD [address] [place] [address] Scan [facility] [address] [place] [address] Referral ID Status Reason Start Date Expiration Date Visits Re quested Visits Authorized [id number] Closed 05/20/2022 09/11/2022 1 1 [facility] Summary Purpose Family History No Family History [...] February 17, 2022 7 :45am Power of Tierce Filler No February 17, 2022 7:45am Advance Directive Response Recorded Date/ Time Advance Directives Yes August 20, 2016 10:06am Living Will Yes February 17, 2022 2 :21pm Power of Tierce Filler Yes February 17, 2022 2:21pm Advance Directive Response Recorded Date/ Time Name of Medical Power of Tierce Filler Keisha February 17, 2022 2:21pm Advance Directives Yes August 20, 2016 10:06am Living Will Yes February 17, 2022 2 :21pm Power of Tierce Filler Yes February 17, 2022 2:21pm Advance Directive Response Recorded Date/ Time Name of Medical Power of Tierce Filler Keisha February 17, 2022 2:21pm Name of Medical Power of Tierce Filler March 09, 2022 9:28am Advance Directives Yes August 20, 2016 10:06am Living Will Yes March 09, 2022 9:28am Power of Tierce Filler Yes March 09 9:28am Advance Directive Response Recorded Date/ Time Name of Medical Power of Tierce Filler Keisha February 17, 2022 2:21pm Name of Medical Power of Tierce Filler March 09, 2022 9:28am Advance Directives Yes August 20, 2016 10:06am Living Will No March 12, 2022 8 :30pm Power of Tierce Filler No March 12, 2022 8:30pm Advance Directive Response Recorded Date/ Time Name of Medical Power of Tierce Filler Keisha February 17, 2022 2:21pm Name of Medical Power of Tierce Filler March 09, 2022 9:28am Name of Medical Power of Tierce Filler Liliane () March 13, 2022 1:48am Advance Directives Yes August 20, 2016 10:06am Living Will Yes March 13, 2022 1 :48am Power of Tierce Filler Yes March 13, 2022 1:48am Advance Directive Response Recorded Date/ Time Name of Medical Power of Tierce Filler Keisha February 17, 2022 2:21pm Name of Medical Power of Tierce Filler March 09, 2022 9:28am Name of Medical Power of Tierce Filler Liliane () March 13, 2022 1:48am Name of Medical Power of Tierce Filler kathy crocker er April 25, 2022 4:26pm Advance Directives Yes August 20, 2016 10:06am Living Will Yes April 25 4:26pm Power of Tierce Filler Yes April 25 4:26pm Advance Directive Response Recorded Date/ Time Name of Medical Power of Tierce Filler Keisha February 17, 2022 2:21pm Name of Medical Power of Tierce Filler March 09, 2022 9:28am Name of Medical Power of Tierce Filler Liliane () March 13, 2022 1:48am Name of Medical Power of Tierce Filler kathy crocker er April 25, 2022 4:26pm Name of Medical Power of Tierce Filler LILIANE BOYKIN R- June 05, 2022 12:59am Advance Directives Yes August 20, 2016 10:06am Living Will Yes June 05, 2022 12:59am Power of Tierce Filler Yes May 12:59am Advance Directive Response Recorded Date/ Time Name of Medical Power of Tierce Filler kathy crocker er April 25, 2022 3:26pm Name of Medical Power of Tierce Filler LILIANE BOYKIN R- June 04, 2022 11:59pm Advance Directives Yes August 20, 2016 9:06am Living Will Yes June 04, 2022 11:59pm Power of Tierce Filler Yes May 11:59pm Advance Directive Response Recorded Date/ Time Advance Directives Yes August 20, 2016 10:06am Living Will Yes June 05, 2022 12:59am Power of Tierce Filler Yes May 12:59am Advance Directive Response Recorded Date/ Time Living Will Yes June 05, 2022 12:59am Do you have a Healthcare Power of Tierce Filler? Yes June 05, 2022 12:59am Living Will Yes August 12 1:25am Do you have a Healthcare Power of Tierce Filler? Yes August 12, 2024 1:25am Living Will Yes October 13 2:30am Do you have a Healthcare Power of Tierce Filler? Yes October 13, 2024 2:30am Living Will Yes November 10, 2024 2:59am Do you have a Healthcare Power of Tierce Filler? Yes November 10, 2024 2:59am Advance Directives Yes August 20, 2016 10:06am Advance Directive Response Recorded Date/ Time Living Will Yes January 10, 2025 12 :39am Do you have a Healthcare Power of Tierce Filler? Yes January 10, 2025 12:39am Living Will Yes October 13 2:30am Do you have a Healthcare Power of Tierce Filler? Yes October 13, 2024 2:30am Living Will Yes November 10, 2024 2:59am Do you have a Healthcare Power of Tierce Filler? Yes November 10, 2024 2:59am Living Will Yes December 11, 2024 12:52am Do you have a Healthcare Power of Tierce Filler? Yes December 11, 2024 12:52am Advance Directives Yes August 20, 2016 10:06am Advance Directive Response Recorded Date/ Time Living Will Yes January 10, 2025 12 :39am Do you have a Healthcare Power of Tierce Filler? Yes January 10, 2025 12:39am Living Will Yes November 10, 2024 2:59am Do you have a Healthcare Power of Tierce Filler? Yes November 10, 2024 2:59am Living Will Yes December 11, 2024 12:52am Do you have a Healthcare Power of Tierce Filler? Yes December 11, 2024 12:52am Advance Directives Yes August 20, 2016 10:06am Advance Directive Response Recorded Date/ Time Living Will Yes January 10, 2025 12 :39am Do you have a Healthcare Power of Tierce Filler? Yes January 10, 2025 12:39am Living Will Yes December 11, 2024 12:52am Do you have a Healthcare Power of Tierce Filler? Yes December 11, 2024 12:52am Advance Directives Yes August 20, 2016 10:06am [...] sleep apnea) October 102024 9:41am Chief Complaint Admit Date MORBID OBESITY November 08, 2024 9:18am MORBID OBESITY December 04, 2024 10: 00am MORBID OBESITY January 07, 2025 9:5 9am MORBID OBESITY February 12, 2025 8:30a m Chief Complaint Admit Date MORBID OBESITY December 04, 2024 10: 00am MORBID OBESITY January 07, 2025 9:5 9am MORBID OBESITY February 12, 2025 8:30a m Chief Complaint Admit Date MORBID OBESITY January 07, 2025 9:5 9am MORBID OBESITY February 12, 2025 8:30a m MORBID OBESITY March 13, 2025 8:23a m Chief Complaint Admit Date MORBID OBESITY January 07, 2025 9:5 9am MORBID OBESITY February 12, 2025 8:30a m MORBID OBESITY March 13, 2025 8:23a m Pre-Colonoscopy Screening April 18 2:44pm Reason for Visit Admit Date Encounter for screening colonoscopy Augu 2024 2:44pm Chief Complaint POV #2 Additional Source Comments (unrecognized sect ion and content) No Status Records FoundNo Status Records FoundNo Status Records FoundNo Status Records FoundNo Status Records FoundNo Status Records Found INFORMATION SOURCE (unrecogn ized section and content) DATE CREATED AUTHOR 11/06/2019 [facility] DATE CREATED AUTHOR AUTHOR'S ORGANIZ ATION 06/12/2022 [facility] DATE CREATED AUTHOR AUTHOR'S ORGANIZ ATION 03/09/2023 [employer] DATE CREATED AUTHOR AUTHOR'S ORGANIZ ATION 03/25/2023 [facility] DATE CREATED AUTHOR AUTHOR'S ORGANIZ ATION 04/20/2023 [facility] DATE CREATED AUTHOR AUTHOR'S ORGANIZ ATION 05/31/2025 [facility] Goals (unrecognized section and content) Goals [...] or prosecute any alcohol or drug abuse patient.[facility] the event this information is protected by the Federal Confidentiality of Alcohol and Drug Abuse Patient Records regulations: The Federal rules restrict any use of the information to criminally investigate or prosecute any alcohol or drug abuse patient.[facility] Center[facility] the event this information is protected by the Federal Confidentiality of Alcohol and Drug Abuse Patient Records regulations: The Federal rules restrict any use of the information to criminally investigate or prosecute any alcohol or drug abuse patient.[facility] Center[facility] the event this information is protected by the Federal Confidentiality of Alcohol and Drug Abuse Patient Records regulations: The Federal rules restrict any use of the information to criminally investigate or prosecute any alcohol or drug abuse patient.[facility] Center[facility] the event this information is protected by the Federal Confidentiality of Alcohol and Drug Abuse Patient Records regulations: The Federal rules restrict any use of the information to criminally investigate or prosecute any alcohol or drug abuse patient.[facility] Center[facility] the event this information is protected by the Federal Confidentiality of Alcohol and Drug Abuse Patient Records regulations: The Federal rules restrict any use of the information to criminally investigate or prosecute any alcohol or drug abuse patient.[facility] CenterIn the event this information is protected by the Federal Confidentiality of Alcohol and Drug Abuse Patient Records regulations: The Federal rules restrict any use of the information to criminally investigate or prosecute any alcohol or drug abuse patient.[facility] CenterIn the event this information is protected by the Federal Confidentiality of Alcohol and Drug Abuse Patient Records regulations: The Federal rules restrict any use of the information to criminally investigate or prosecute any alcohol or drug abuse patient.[facility] CenterIn the event this information is protected by the Federal Confidentiality of Alcohol and Drug Abuse Patient Records regulations: The Federal rules restrict any use of the information to criminally investigate or prosecute any alcohol or drug abuse patient.[facility] CenterIn the event this information is protected by the Federal Confidentiality of Alcohol and Drug Abuse Patient Records regulations: The Federal rules restrict any use of the information to criminally investigate or prosecute any alcohol or drug abuse patient.[facility] CenterIn the event this information is protected by the Federal Confidentiality of Alcohol and Drug Abuse Patient Records regulations: The Federal rules restrict any use of the information to criminally investigate or prosecute any alcohol or drug abuse patient.[facility] CenterIn the event this information is protected by the Federal Confidentiality of Alcohol and Drug Abuse Patient Records regulations: The Federal rules restrict any use of the information to criminally investigate or prosecute any alcohol or drug abuse patient.[facility] CenterIn the event this information is protected by the Federal Confidentiality of Alcohol and Drug Abuse Patient Records regulations: The Federal rules restrict any use of the information to criminally investigate or prosecute any alcohol or drug abuse patient.[facility] CenterIn the event this information is protected by the Federal Confidentiality of Alcohol and Drug Abuse Patient Records regulations: The Federal rules restrict any use of the information to criminally investigate or prosecute any alcohol or drug abuse patient.[facility] CenterIn the event this information is protected by the Federal Confidentiality of Alcohol and Drug Abuse Patient Records regulations: The Federal rules restrict any use of the information to criminally investigate or prosecute any alcohol or drug abuse patient.[facility] CenterIn the event this information is protected by the Federal Confidentiality of Alcohol and Drug Abuse Patient Records regulations: The Federal rules restrict any use of the information to criminally investigate or prosecute any alcohol or drug abuse patient.[facility] CenterIn the event this information is protected by the Federal Confidentiality of Alcohol and Drug Abuse Patient Records regulations: The Federal rules restrict any use of the information to criminally investigate or prosecute any alcohol or drug abuse patient.[facility] CenterIn the event this information is protected by the Federal Confidentiality of Alcohol and Drug Abuse Patient Records regulations: The Federal rules restrict any use of the information to criminally investigate or prosecute any alcohol or drug abuse patient.[facility] CenterIn the event this information is protected by the Federal Confidentiality of Alcohol and Drug Abuse Patient Records regulations: The Federal rules restrict any use of the information to criminally investigate or prosecute any alcohol or drug abuse patient.[facility] Reason for Visit (unrecogniz ed section and content) Reason Comments Post Op Laparoscopic cholecy stectomy Reason Comments Patient Question Reason Comments Patient Update Reason Comments Radiology NM Specialty Diagnoses / Procedures Referred By Contact Referred To Contact MOLECULAR & FUNCTIONAL IMAGING Diagnoses Status post cholecystectomy Procedures NM HEPATOBILIARY WO RX HEPATOBILIARY SYST IMAGING INCLUDING GALLBLADDER Renetta Alex MD [address] [place] [address] Molecular & Functional Imaging [address] [place] [address] Referral ID Status Reason Start Date Expiration Date Visits Requested Visits Authorized [id number] Waiting for Online Response Auto-Genera francheska Referral Patient Cleared - Admin/Chair man/Directo r advise to proceed 02/24/2022 03/26/2023 1 1 Reason Comments Follow Up review HIDA scan, re move stitches on abdomen Reason Comments Follow Up KENNETH drain, [place] [facility] admit, d/c 03/18/22, pancreatitis Reason Comments Schedule Evaluation Reason Comments Referral Request Natalia Gastroenterol ogalysia Reason Comments Patient Question pain in mid abd Reason Comments Radiology CT Specialty Diagnoses / Procedures Referred By Jaylene tena Referred To Contact Radiology / RADIO CT SCAN [facility] Diagnoses Perforation of gallbladder Biliary acute pancreatitis with infected necrosis CT ABD W IV AND ORAL, DX ,NHI TO FAX ORDER Procedures CT ABDOMEN W/CONTRAST CT WWO ABD1 400 Cornelio Weaver MD [address] [place] [address] Scan [facility] [address] [place] [address] Referral ID Status Reason Start Date Expiration Date Visits Re quested Visits Authorized [id number] Closed 05/20/2022 09/11/2022 1 1 Reason Comments Follow Up Drain, removal Specialty Diagnoses / Procedures Referred By Contac t Referred To Contact General Surgery Diagnoses Abnormal biliary HIDA scan Procedures CONSULT TO GENERAL SURGERY OFFICE/OUTPATIENT [facility] 60-74 MINUTES Renetta Alex MD [address] [place] [address] Referral ID Status Reason Start Date Expiration Date V isits Requested Visits Authorized [id number] Closed PCP Requested Referral 03/04/2022 03/04/2023 1 1 Care Team (unrecognized sect ion and content) Care Team Personnel Name: REFERRING, COLINY WO ID Position: Physician Med Service: Admitting Member Role: Primary Care Physician Care Team Related Persons Name: KEISHA CERDA Care Team Related Persons Name: KEISHA CERDA Care Team Related Persons Name: ZAIDA KEISHA Care Team Related Persons Name: ZAIDA KEISHA [...] Referrin g Provider Active Julita Santoyo NP, DIRECTOR OF SLOT OPERATIONS-C Attending Provider Active Team Status: Inactive Member Role Status Dates Dr. Tri Choudhury MD Primary Care Provider Active Donya Greenfield NP-C Attending Provider, Referring Prov ider Active Team [...] December 04, 2024 End: December 10, 2024 Team Status: Inactive Member Role Status Dates Dr. Tri Choudhury MD Primary Care Provider Active Start: January 07, 2025 End: January 09, 2025 Dr. Tri Choudhury MD Attending Provider Active Start: January 07, 2025 End: January 09, 2025 Dr. Tri Choudhury MD Referring Provider Active Start: January 07, 2025 End: January 09, 2025 Team Status: Active Member Role Status Dates Dr. Tri Choudhury MD Primary Care Provider Active Start: February 12, 2025 Dr. Tri Choudhury MD Attending Provider Active Start: February 12, 2025 Dr. Tri Choudhury MD Referring Provider Active Start: February 12, 2025 Team Status: Inactive Member Role Status Dates Dr. Tri Choudhury MD Primary Care Provider Active Start: February 13, 2025 End: February 13, 2025 Dr. Tri Choudhury MD Attending Provider Active Start: February 13, 2025 End: February 13, 2025 Dr. Tri Choudhury MD Referring Provider Active Start: February 13, 2025 End: February 13, 2025 Team Status: Active Member Role/Relationship Status Dates Dr. Tri Choudhury MD Primary Care Provider Active Team Status: Inactive Member Role/Relationship Status Dates Dr. Tri Choudhury MD Primary Care Provider Active Start: December 04, 2024 End: December 10, 2024 Dr. Tri Choudhury MD Attending Provider Active Start: December 04, 2024 End: December 10, 2024 Dr. Tri Choudhury MD Referring Provider Active Start: December 04, 2024 End: December 10, 2024 Team Status: Inactive Member Role/Relationship Status Dates Dr. Tri Choudhury MD Primary Care Provider Active Start: January 07, 2025 End: January 09, 2025 Dr. Tri Choudhury MD Attending Provider Active Start: January 07, 2025 End: January 09, 2025 Dr. Tri Choudhury MD Referring Provider Active Start: January 07, 2025 End: January 09, 2025 Team Status: Inactive Member Role/Relationship Status Dates Dr. Tri Choudhury MD Primary Care Provider Active Start: February 12, 2025 End: March 11, 2025 Dr. Tri Choudhury MD Attending Provider Active Start: February 12, 2025 End: March 11, 2025 Dr. Tri Choudhury MD Referring Provider Active Start: February 12, 2025 End: March 11, 2025 Team Status: Inactive Member Role/Relationship Status Dates Dr. Tri Choudhury MD Primary Care Provider Active Start: February 13, 2025 End: February 13, 2025 Dr. Tri Choudhury MD Attending Provider Active Start: February 13, 2025 End: February 13, 2025 Dr. Tri Choudhury MD Referring Provider Active Start: February 13, 2025 End: February 13, 2025 Team Status: Inactive Member Role/Relationship Status Dates Dr. Tri Choudhury MD Primary Care Provider Active Start: January 07, 2025 End: January 09, 2025 Dr. Tri Choudhury MD Attending Provider Active Start: January 07, 2025 End: January 09, 2025 Dr. Tri Choudhury MD Referring Provider Active Start: January 07, 2025 End: January 09, 2025 Team Status: Inactive Member Role/Relationship Status Dates Dr. Tri Choudhury MD Primary Care Provider Active Start: February 12, 2025 End: March 11, 2025 Dr. Tri Choudhury MD Attending Provider Active Start: February 12, 2025 End: March 11, 2025 Dr. Tri Choudhury MD Referring Provider Active Start: February 12, 2025 End: March 11, 2025 Team Status: Inactive Member Role/Relationship Status Dates Dr. Tri Choudhury MD Primary Care Provider Active Start: February 13, 2025 End: February 13, 2025 Dr. Tri Choudhury MD Attending Provider Active Start: February 13, 2025 End: February 13, 2025 Dr. Tri Choudhury MD Referring Provider Active Start: February 13, 2025 End: February 13, 2025 Team Status: Inactive Member Role/Relationship Status Dates Dr. Tri Choudhury MD Primary Care Provider Active Start: March 13, 2025 End: April 11, 2025 Dr. Tri Choudhury MD Attending Provider Active Start: March 13, 2025 End: April 11, 2025 Dr. Tri Choudhury MD Referring Provider Active Start: March 13, 2025 End: April 11, 2025 Team Status: Inactive Member Role/Relationship Status Dates Dr. Tri Choudhury MD Primary Care Provider Active Start: April 18, 2025 End: April 18, 2025 Dr. Tri Choudhury MD Referring Provider Active Start: April 18, 2025 End: April 18, 2025 MELANI Arredondo Attending Provider Active Start: April 18, 2025 End: April 18, 2025 <item> Privacy Markings (unrecogniz ed section and [...] BE BASED ON THE PRIMARY CLINICAL RECORDS. [employer] provides no warranty or guarantee of the accuracy or completeness of information in this document.
[2025-06-03] MEDS: Lactated Ringers 1,000 ML 15 ML IV (06:06)
--- NOTE | 2025-06-03 06:30 | COLBX_PTH ---
PATIENT: WOOD CERDA LOC: EN U#:[id number] AGE/SX: 64/M ROOM: RE06/03/[address]: Dr. Yogesh Crawford DO : 1960 BED: DIS: 06/03/2025 SPEC #: [id number] RECD: 06/03/25 07:44 STATUS: ELI RECal #: [id number] TREVOR: 06/03/25 06:[address]: Yogesh Crawford DEPT: SURGICAL PATHOLOGY RECD BY: Manuel Boykin ENTERED: 06/03/25 13:51 SP TYPE: COLON BX KWADWO DR: Dr. Tri Choudhury MD Tissues: A - Cecum, NOS B - COLON BIOPSY C - Sigmoid colon biopsy D - Rectum, NOS Procedures: Surgery Specimen Level IV HEADER OPERATION: Colonoscopy with polypectomy PRE-OP DIAGNOSIS: Encounter for screening colonoscopy TISSUE SUBMITTED: A- Cecal polyp, B- Hepatic flexure polyp, C- Sigmoid polyp, D- Rectal polyp MICROSCOPIC DIAGNOSIS A. Cecum, polyp, biopsy: * Superficial hyperplastic crypt change. B. Hepatic flexure, polyp, biopsy: * Tubular adenoma. C. Sigmoid colon, polyp, biopsy: * Hyperplastic polyp. D. Rectum, polyp, biopsy: * Tubulovillous adenoma. * The assessable surgical margin appears free of dysplasia. MICROSCOPIC DESCRIPTION Slides are reviewed. GROSS DESCRIPTION A. Received in fixative is one container labeled with the patient's name and designated Cecal polyp. The specimen consists of two irregular fragments of rodriguez tissue, each measuring 0.3 cm. The specimen is totally submitted in one cassette. B. Received in fixative is one container labeled with the patient's name and designated Hepatic flexure polyp. The specimen consists of multiple irregular fragments of rodriguez tissue that in aggregate measure 0.7 x 0.5 x 0.2 cm, admixed with flocculent material. The specimen is totally submitted in one cassette. C. Received in fixative is one container labeled with the patient's name and designated Sigmoid polyp. The specimen consists of one irregular fragment of rodriguez tissue that measures 0.5 cm. The specimen is totally submitted in one cassette. D. Received in fixative is one container labeled with the patient's name and designated Rectal polyp. The specimen consists of 1.0 x 0.6 x 0.6 cm pink-rodriguez red granular and lobulated polyp. The resection margin is inked black and the specimen is bisected. Entirely submitted in 1 cassette. [place] 06/03/2025 CPT:71380q5
--- NOTE | 2025-06-03 06:31 | HP.PCM_ITS ---
[facility] - General General Date of Admission: 06/03/25 Date of Service: 06/03/25 Chief Complaint: Screening colonoscopy [facility] Narrative WOOD CERDA, is a 64 M who presents for a Screening colonoscopy PMHx of pancreatitis, s/p cholecystectomy, obesity and ABDULKADIR Patient here today to be scheduled for screening colonoscopy. Last colonoscopy was 10 years ago with no abnormalities. Patient has some constipation here and there. He has daily bowel movements however he does strain on occasion. He does have blood in his stool on occasion. He endorses a family history of colon cancer in his father who was diagnosed in his 50s. He has no GI complaints today. [facility] Medical History Arthritis Fatty liver Sleep apnea Hypertension Pancreatitis Arthritis Chronic knee pain Shortness of breath on exertion History of stress test Non-smoker BiPAP (biphasic positive airway pressure) dependence Morbid obesity ABDULKADIR (obstructive sleep apnea) Acute cholecystitis Home Medications ?Medication ?Instructions ?Recorded ?Last Taken ?Type magnesium 250 mg tablet 250 mg PO DAILY supplement 0 03/09/22 03/12/22 History omega 7-reg-nlx-fish oil 300 1 cap PO DAILY supplement 03/09/22 03/12/22 History mg-1,000 mg capsule (Fish Oil) multivitamin 1 tab PO QDAY 10/10/24 Unkno wn History Allergy/AdvReac Type Severity Reaction Status Date / Time No Known Allergies Allergy Verified 06/03/25 05:47 Family History Mother Asthma Diabetes Father Colon cancer Sister Cancer Liver cancer Brother Diabetes Surgical History History of cholecystectomy History of surgery of liver Status post cholecystectomy Social History Smoking Status: Never smoker alcohol intake: never ROS Constitutional Constitutional: Denies fatigue, fever(s), poor appetite, weight gain or weight loss Gastrointestinal Gastrointestinal: Denies belching, bloating, change in bowel habits, change in s tool character, chewing difficulty, coffee ground emesis, constipation, cramping, diarrhea, dyspepsia, dysphagia, early satiety, excessive flatus, fecal incontinence, heartburn, hematemesis, hematochezia, hemorrhoids, loose stools, melena, nausea, odynophagia, rectal bleeding, tenesmus, vomiting or weight changes Vital Signs Vital Signs Vital Signs: 06/03/25 05:47 06/03/25 05:47 Temperature 97.3 F L Temperature Source Temporal Pulse Rate 52 L Respiratory Rate 16 Respiratory Pattern Normal Blood Pressure 161/69 H Blood Pressure Mean 99 Blood Pressure Source Monitor Blood Pressure Position Semi-Fowlers Blood Pressure Location Left Arm Pulse Ox 98 Oxygen Delivery Method Room Air Weight Weight: 308 lb 10.354 oz Body Mass Index (BMI) 45.6 Physical Exam Const alert, oriented x3, no apparent distress and healthy appearing General Appearance: cooperative GI normal to inspection, nondistended, normoactive bowel sounds, soft to palpation, non-tender and non-distended Percussion: normal to percussion Rectal Exam: deferred Assessment & Plan Assessment/Plan (1) Encounter for screening colonoscopy: PLAN: Assessment and Plan Assessment and Plan (1) Encounter for screening colonoscopy: Status: Acute Plan: Follow-up is a 64-year-old male patient here today for consultation for screening colonoscopy. Patient last had colonoscopy over 10 years ago with no abnormalities. He has a family history of colon cancer in his father who was diagnosed at age 50. Patient denies GI symptoms at this time. Patient was scheduled for colonoscopy. - Screening colonoscopy - Follow-up as needed Note:Adtuitive speech recognition fuel conversion technician software was used to create portions of this document. Sound-alike and misspelled words, as well as other fuel conversion technician errors may be contained in the documentation.
--- NOTE | 2025-06-03 06:41 | PCM.PRE.AN2 ---
ASA Classification* ASA Classification ASA Classification: 3 Assessment & Plan Anesthesia* Anesthesia Assessment Anesthesia Assessment: Discussed sedation and/or anesthesia options, risks, benefits, and alternatives with patient/parents/legal guardian/POA. Questions invited. The patient/parents/legal guardian/POA seems to understand and agrees to proceed with anesthesia plan. Reviewed the physical assessment, medical history, allergy history and patient home medications list prior to surgery/procedure/anesthetic and documented any changes. Performed airway and anesthesia risk assessments. Anesthesia Type Anesthesia Type: MAC Anesthesia Focused Assessment* Temperature: 97.3 F Pulse Rate: 52 Blood Pressure: 161/69 Respiratory Rate: 16 Pulse Ox: 98 Airway Assessment Mouth opens: >3 cm Mallampati Score: II Labs Anesthesia Preop lab: CBC WBC, (4.4-11.0) 5.6 K/mm3 02/13/25, 06:41 RBC, (4.6-6.2) 4.98 M/mm3 02/13/25, 06:41 Hgb, (13.0-16.5) 15.7 g/dL 02/13/25, 06:41 Hct, (40-54) 44.9 % 02/13/25, 06:41 Plt Count, (150-450) 203 K/mm3 02/13/25, 06:41 CHEMISTRY Potassium, (3.3-5.1) 4.3 mmol/L 02/13/25, 06:41 Sodium, (133-145) 138 mmol/L 02/13/25, 06:41 BUN, (4-19) 21 mg/dL H 02/13/25, 06:41 Creatinine, (0.70-1.20) 0.95 mg/dL 02/13/25, 06:41 Glucose, (70-99) 101 mg/dL H 02/13/25, 06:41 TSH, (0.358-3.74) 1.42 uIU/mL 03/29/19, 16:06 COAG PT, (11.7-14.9) 13.3 SECONDS 08/18/22, 10:35 Pre-Assessment Diagnosis/Proposed Procedure Planned Operative Procedure(s): Colonoscopy Anesthesia History Anesthesia History - silver cleaner: Anesthesia History - silver cleaner Hx Hospitalization No 05/28/25 12:32 Any Problems With Anesthesia No 05/28/25 12:32 Cholinesterase deficiency No 05/28/25 12:32 You/Your Family Experience No 05/28/25 12:32 fever (hyperthermia) with Relationship Recent Exposure to Contagious No 06/03/25 05:47 Disease Does patient have nerve No 05/28/25 12:32 stimulator Patient instructed to have device shut off --Does patient have Pacemaker No 06/03/25 05:47 or ICD? When Was Last Pacemaker Check QUESTION #4 FULL TEXT: You/Your Family Experience fever (hyperthermia) with Anesthesia Last Oral Intake Last Oral intake: Last Oral Intake NPO since 23:00 06/03/25 05:47 Meds taken in AM with sips of No 06/03/25 05:47 water? Meds patient instructed to take am of surgery PONV PONV - silver cleaner: PONV - silver cleaner Female No 05/28/25 12:32 HX of Motion Sickness No 05/28/25 12:32 HX of N/V After Surgery No 05/28/25 12:32 Non-Smoker Yes 05/28/25 12:32 Duration of Surgery greater No 05/28/25 12:32 than 60 minutes Number of Risk Factors 1 05/28/25 12:32 PONV Score Low Risk 05/28/25 12:32 Height & Weight Height & Weight: Anesthesia: Height & Weight Height 5 ft 9 in 06/03/25 05:47 Weight: 140 kg 06/03/25 05:47 Body Mass Index (BMI) 45.6 06/03/25 05:47 Respiratory Assessment Respiratory Assessment - silver cleaner: Respiratory Tract Infection Hx - silver cleaner Hx Respiratory Tract Infection No 05/28/25 12:32 STOP Sleep Apnea STOP Sleep Apnea - silver cleaner: STOP Sleep Apnea - silver cleaner Hx Hypertension No 05/28/25 12:32 Hx Sleep Apnea Yes 05/28/25 12:32 CPAP No 05/28/25 12:32 BIPAP Yes 05/28/25 12:32 Do you snore loudly (louder than talking or can be heard Do you often feel tired/ fatigued/ sleepy during daytime? Has anyone observed you stop breathing during sleep? STOP Results Positive 05/28/25 12:32 QUESTION #5 FULL TEXT : Do you snore loudly (louder than talking or can be heard through closed doors)? 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 Specify any problems Hx of Preganancy in last 3 N/A 05/28/25 12:32 Months Nurse Filling Out Transfusion JZOLLJING 05/28/25 12:32 & Questions: Date: 05/28/25 05/28/25 12:32 Time: 12:34 05/28/25 12:32 Patient unable to answer at this time (ie. confused, unrespo /Reproduction History /Reproductive History - silver cleaner: /Reproductive Hx- silver cleaner Hx Now No 05/28/25 12:32 Gestational Age (in weeks): EDC: Hx Hx Para Hx Section SAB No 05/28/25 12:32 Active Medications Active Medications: Current Medications Generic Name Dose Route Start Last Admin Trade Name Freq PRN Reason Stop Dose Admin Lactated Ringer's 1,000 mls @ 15 mls/hr 06/03/25 05:30 06/03/25 06:06 IV 15 mls/hr .Q48H WILMAR Administration PFSH Medical History Arthritis Fatty liver Sleep apnea Hypertension Pancreatitis Arthritis Chronic knee pain Shortness of breath on exertion History of stress test Non-smoker BiPAP (biphasic positive airway pressure) dependence Morbid obesity ABDULKADIR (obstructive sleep apnea) Acute cholecystitis Home Medications ?Medication ?Instructions ?Recorded ?Last Taken ?Type magnesium 250 mg tablet 250 mg PO DAILY supplement 03/09/22 03/12/22 History omega 1-qjq-kva-fish oil 300 1 cap PO DAILY supplement 03/09/22 03/12/22 History mg-1,000 mg capsule (Fish Oil) multivitamin 1 tab PO QDAY 10/10/24 Unknown History Allergy/AdvReac Type Severity Reaction Status Date / Time No Known Allergies Allergy Verified 06/03/25 05:47 Family History Mother Asthma Diabetes Father Colon cancer Sister Cancer Liver cancer Brother Diabetes Surgical History History of cholecystectomy History of surgery of liver Status post cholecystectomy Social History Smoking Status: Never smoker alcohol intake: never Review of Systems (Anesthesia) ROS Narrative System reviewed and no additional complaints, except as documented.
--- NOTE | 2025-06-03 07:22 | OP.COLON_ITS ---
Patient Name: Gustavo Burdick Procedure Date: 06/03/2025 6:33 AM Date of : 1960 Age: 64 Procedure: Colonoscopy Indications: Screening for colorectal malignant neoplasm Providers: Yogesh Crawford DO Referring MD: Tri Choudhury Medicines: Monitored Anesthesia Care Patient Profile: This is a 64 year old male. Refer to note in patient chart for documentation of history and physical. Last Colonoscopy: several years ago. Complications: No immediate complications. Procedure: Pre-Anesthesia Assessment: - Prior to the procedure, a History and Physical was performed, and patient medications and allergies were reviewed. The patient is competent. The risks and benefits of the procedure and the sedation options and risks were discussed with the patient. All questions were answered and informed consent was obtained. Patient identification and proposed procedure were verified by the physician in the pre-procedure area. Mental Status Examination: alert and oriented. Airway Examination: normal oropharyngeal airway and neck mobility. Respiratory Examination: clear to auscultation. CV Examination: normal. Prophylactic Antibiotics: The patient does not require prophylactic antibiotics. Prior Anticoagulants: The patient has taken no anticoagulant or antiplatelet agents except for NSAID medication. ASA Grade Assessment: II - A patient with mild systemic disease. After reviewing the risks and benefits, the patient was deemed in satisfactory condition to undergo the procedure. The anesthesia plan was to use monitored anesthesia care (MAC). Immediately prior to administration of medications, the patient was re-assessed for adequacy to receive sedatives. The heart rate, respiratory rate, oxygen saturations, blood pressure, adequacy of pulmonary ventilation, and response to care were monitored throughout the procedure. The physical status of the patient was re-assessed after the procedure. After I obtained informed consent, the scope was passed under direct vision. Throughout the procedure, the patient's blood pressure, pulse, and oxygen saturations were monitored continuously. The Colonoscope was introduced through the anus and advanced to the cecum, identified by appendiceal orifice and ileocecal valve. The colonoscopy was performed without difficulty. The patient tolerated the procedure well. The quality of the bowel preparation was adequate. Anatomical landmarks were photographed. Scope In: 6:53:47 AM Scope Withdrawal Time 0 hours 17 minutes 52 seconds Scope Out: 7:15:36 AM Total Procedure Duration Time 0 hours 21 minutes 49 seconds Findings: The perianal and digital rectal examinations were normal. A few small-mouthed diverticula were found in the recto-sigmoid colon and sigmoid colon. Two sessile polyps were found in the rectum and hepatic flexure. The polyps were 10 mm in size. These polyps were removed with a hot snare. Resection and retrieval were complete. Verification of patient identification for the specimen was done. Estimated blood loss was minimal. To prevent bleeding after the polypectomy, one hemostatic clip was successfully placed. Clip nut culler: [employer]. There was no bleeding at the end of the procedure. Two sessile polyps were found in the sigmoid colon and cecum. The polyps were 7 mm in size. These polyps were removed with a cold biopsy forceps. Resection and retrieval were complete. Verification of patient identification for the specimen was done. Estimated blood loss was minimal. Impression: - Diverticulosis in the recto-sigmoid colon and in the sigmoid colon. - Two 10 mm polyps in the rectum and at the hepatic flexure, removed with a hot snare. Resected and retrieved. - Two 7 mm polyps in the sigmoid colon and in the cecum, removed with a cold biopsy forceps. Resected and retrieved. Recommendation: - Repeat colonoscopy in 3 years for surveillance. - Continue present medications. Procedure Code(s): --- Professional --- 33920, Colonoscopy, flexible; with removal of tumor(s), polyp(s), or other lesion(s) by snare technique 49388, 59, Colonoscopy, flexible; with biopsy, single or multiple CPT copyright 2021 [employer]. All rights reserved. The codes documented in this report are preliminary and upon longwall machine operator helper review may be revised to meet current compliance requirements. Yogesh Crawford DO 06/03/2025 7:20:44 AM This report has been signed electronically. Number of Addenda: 0 Note Initiated On: 06/03/2025 6:33 AM
--- NOTE | 2025-06-03 07:22 | OP.PROVAT_ITS ---
06/06/2025 Tri Choudhury [place] [id number] [place] [address] Re : Colonoscopy procedure for Gustavo Burdick Dear Dr. Choudhury This procedure was performed on Tuesday, June 03, 2025. My impressions and recommendations are as follows: Impressions : - Diverticulosis in the recto-sigmoid colon and in the sigmoid colon. - Two 10 mm polyps in the rectum and at the hepatic flexure, removed with a hot snare. Resected and retrieved. - Two 7 mm polyps in the sigmoid colon and in the cecum, removed with a cold biopsy forceps. Resected and retrieved. Recommendations : - Repeat colonoscopy in 3 years for surveillance. - Continue present medications. My findings are described in the full procedure note, which is enclosed. If I can be of further assistance, please feel free to contact me at . Sincerely, Yogesh Friend, 06/03/2025 7:20:44 AM This report has been signed electronically.
--- NOTE | 2025-06-03 07:25 | PCM.POST.ANE ---
Anesthesia: Postop Eval I Current Vital Signs Temperature: 97 F Pulse Rate: 73 Blood Pressure: 118/64 Respiratory Rate: 16 Pulse Ox: 97 Oxygen Delivery Method: Room Air Assessment Airway patent: Yes Spontaneous unlabored respirations: Yes Mental status: Awake and Calm nausea: No Vomiting: No Anesthesia Complication: No Fluid Hydration Crystalloid volume administer (ml): 500 Total IV fluid infused: 500 Progress Note Anesthesia document: Postop Eval 1 completed: Yes
--- NOTE | 2025-06-03 09:14 | PCM.POSTANE2 ---
Anesthesia Postop Eval I Sum Postop Eval Completion status Anesthesia document: Postop Eval 1 completed: Yes Anesthesia Postop Eval I Summary Anesthesia Postop Eval I Summary: Anesthesia Postop Eval I: Assessment Summary Airway patent Yes 06/03/25 07:25 [email or web address] Spontaneous unlabored Yes 06/03/25 07:25 [email or web address] respirations Mental status Awake,Calm 06/03/25 07:25 [email or web address] nausea No 06/03/25 07:25 [email or web address] Vomiting No 06/03/25 07:25 [email or web address] Anesthesia Postop Eval I: Fluid Summary Crystalloid volume administer 500 06/03/25 07:25 [email or web address] (ml) Colloids volume administered ( ml) Blood Product volume administered (ml) Total IV fluid infused 500 06/03/25 07:25 [email or web address] Anesthesia Postop Eval I: Summary Notes Anesthesia Complication No 06/03/25 07:25 [email or web address] Anesthesia Complication Comment: Post-operative progress note Anesthesia: Postop Eval II Evaluation Mental status: Awake Pain Level: 0 nausea: No Vomiting: No
== END 2025-06-03 08:14 | disposition home or self-care (01) ==
LOC: EN 05:22 → AC 05:23
PROVIDERS: PCP Family Medicine; Referring Provider Family Medicine; Visit Provider Internal Medicine Gastroenterology
PROC: 0DJD8ZZ Inspection of Lower Intestinal Tract, Via Natural or Artificial Opening Endoscopic (ICD-10-PCS; CPT 45378; principal; 2025-06-03 06:25)
DX: Z12.11 Encounter for screening for malignant neoplasm of colon (principal); K57.30 Diverticulosis of large intestine without perforation or abscess without bleeding; K63.5 Polyp of colon; K62.1 Rectal polyp; I10 Essential (primary) hypertension; Z80.0 Family history of malignant neoplasm of digestive organs; G47.33 Obstructive sleep apnea (adult) (pediatric); Z99.81 Dependence on supplemental oxygen; Z90.49 Acquired absence of other specified parts of digestive tract; D12.0 Benign neoplasm of cecum
CPT/HCPCS: 45385; 45380; 88305; J2405

== ENCOUNTER 2025-07-04 09:44 | Outpatient (RCR) | payer OTHER, SELFPAY | END 2025-07-12 23:59 | LOC: NS 09:44 | PROVIDERS: PCP Family Medicine; Referring Provider Family Medicine; Visit Provider Family Medicine | DX: Z71.3 Dietary counseling and surveillance (principal); E66.01 Morbid (severe) obesity due to excess calories; Z68.42 Body mass index [BMI] 45.0-49.9, adult | CPT/HCPCS: 97803 ==